=== PATIENT | female | born 1960 | race Caucasian/White ===

== ENCOUNTER → 2016-09-15 | Outpatient (CLI) | payer BC, OTHER ==
--- NOTE | 2016-09-15 07:06 | MR ---
EXAMINATION TYPE: MR cervical spine wo con DATE OF EXAM: 09/15/2016 COMPARISON: NONE HISTORY: Cervical strain TECHNIQUE: Multiplanar, multisequence images of the cervical spine were acquired. C2-C3: No evidence for degenerative disc disease. No disc bulge/herniation or protrusion. No Canal stenosis. Foramina are patent bilaterally. C3-C4: There is a small right central disc osteophyte complex and uncovertebral hypertrophy creating mild bilateral neural foraminal narrowing and minimally impressing upon the ventral subarachnoid spac e with CSF surrounding the spinal cord and no evidence of central canal stenosis. C4-C5: There is a bilobed disc bulge with left paracentral disc impression upon the ventral thecal sa c creating mild spinal canal stenosis and no evidence of alteration of the spinal cord signal. Uncove rtebral hypertrophy and facet arthropathy contribute to mild bilateral neural foraminal narrowing. C5-C6: A right foraminal disc osteophyte complex projects into the right lateral recess and right lyle ral foramen crating moderate right neural foraminal stenosis. Left neural foramen is patent. The disc osteophyte complex also projects posteriorly and creates mild spinal canal stenosis minimally impres sing upon the ventral thecal sac. No abnormal cervical cord signal. C6-C7: Uncovertebral hypertrophy and central disc osteophyte complex are seen with mild left neural f oraminal narrowing. Right neuroforamen and spinal canal are patent. C7-T1: No evidence for degenerative disc disease. No disc bulge/herniation or protrusion. No Canal stenosis. Foramina are patent bilaterally. Cervical segments are intact. There is normal alignment. Cervical spinal cord is of normal signal. Craniovertebral junction relationships are within normal limits. IMPRESSION: 1. No disc herniation, however there is multilevel degenerative disc disease resulting in spinal vanessa l stenosis at C4-C6 and multilevel neural foraminal narrowing as described above. 2. No abnormal bone marrow signal, fracture, or evidence of myositis.
== END | disposition home or self-care (01) ==
LOC: RADMRIMAIN 05:57
PROVIDERS: ATTEND Psychiatry & Neurology Neurology
DX: M50.321 Other cervical disc degeneration at C4-C5 level (principal); M99.71 Connective tissue and disc stenosis of intervertebral foramina of cervical region
CPT/HCPCS: 72141

== ENCOUNTER 2020-03-07 06:12 | Day surgery (SDC) | payer OTHER ==
[2020-03-05 13:17] VITALS: BMI 47.0
[2020-03-07] MEDS ORDERED: LIDOCAINE 1% (10MG/ML) FOR IV START INTRADERMA PRN (06:36)
[2020-03-07] MEDS ORDERED: LACTATED RINGERS 1,000 ML IV SCH (06:36)
[2020-03-07 06:54] VITALS: RESP 16; TEMP 96.9
[2020-03-07 06:55] LABS: Glucose,Whole Blood 119 mg/dL (75-99)
[2020-03-07] MEDS ORDERED: PROPOFOL 10 MG/ML 20 ML VIAL IV ONE (07:09)
[2020-03-07 07:49] VITALS: BP 106/61; PULSE 74
[2020-03-07 08:37] LABS: Anisocytosis Slight; Basophils % (A) 0 %; Eosinophils # (A) 0.2 k/uL (0-0.7); Eosinophils % (A) 3 %; HCT 38.2 % (34.0-46.0); HGB 11.9 gm/dL (11.4-16.0); Lymphocytes # (A) 2.2 k/uL (1.0-4.8); Lymphocytes % (A) 47 %; MCH 27.2 pg (25.0-35.0); MCHC 31.3 g/dL (31.0-37.0); MCV 86.8 fL (80.0-100.0); Mean Platelet Volume 9.4; Monocytes # (A) 0.3 k/uL (0-1.0); Monocytes % (A) 7 %; Neutrophils # (A) 1.9 k/uL (1.3-7.7); Neutrophils % (A) 41 %; Platelet Count 133 k/uL (150-450); RDW 16.3 % (11.5-15.5); WBC 4.7 k/uL (3.8-10.6)
--- NOTE | 2020-03-07 10:02 | PCN ---
PROCEDURE NOTE PROCEDURE: Bone marrow aspirate and biopsy. SITE: Right iliac crest. PREOPERATIVE DIAGNOSIS: Pancytopenia. POSTOPERATIVE DIAGNOSIS: Pancytopenia. DETAILS: Utilizing sterile technique, the skin overlying the right iliac crest were prepared with Betadine and alcohol. After adequate sterile draping, local anesthesia and with 1% lidocaine and systemic sedation, a size 11, 4-inch Jamshidi needle was utilized to access the periosteum with ease. A total of 15 mL of aspirate as well as 5 mm bone core biopsies were obtained. The patient tolerated the procedure very well. There was no procedure related complications. TOTAL BLOOD LOSS: Less than 1 mL. RESULTS: Pending. MMODL / IJN: [id number] /
== END 2020-03-07 08:12 | disposition home or self-care (01) ==
LOC: OR 06:12
PROVIDERS: ATTEND Internal Medicine Hematology & Oncology
DX: D61.818 Other pancytopenia (principal)
CPT/HCPCS: 38222; 85025; 85045; J2704

== ENCOUNTER 2020-05-04 12:16 | Inpatient (IN) | payer MEDICARE, OTHER ==
[2020-05-04] MEDS ORDERED: DEXAMETHASONE SOD PHOSPHATE 10 MG/ML 1 ML VIAL IV STA (12:36)
[2020-05-04] MEDS ORDERED: ACETAMINOPHEN TAB 500 MG TAB PO STA (12:36)
[2020-05-04] MEDS ORDERED: IBUPROFEN 800 MG TAB PO STA (12:36)
[2020-05-04] MEDS ORDERED: ALBUTEROL HFA INHALER INHALATION STA (12:36)
[2020-05-04] MEDS ORDERED: SODIUM CHLORIDE 0.9% 1,000 ML IV STA (12:36)
--- NOTE | 2020-05-04 12:37 | ED ---
Recheck HPI - General Chief Complaint: Shortness of Breath Stated Complaint: COVID+, SOB Time Seen by Provider: 05/04/20 12:36 Source: patient, RN notes reviewed, old records reviewed Mode of arrival: ambulatory Limitations: no limitations - History of Present Illness Initial Comments: This is a 59-year-old female DF for shortness of breath. Patient does suffer from multiple medical conditions diabetes high blood pressure high cholesterol fevers persistent fevers and again known coronavirus. Patient at this point will be admitted for supplemental to his oxygen is been in the 70s at home as well as having history of severe obesity MD Complaint: abnormal lab (Known coronavirus with hypoxia) -: days(s) Returns Today for: Called Because of Abnormal Lab/Test, persistent/worsening pain related to initial visit Symptoms Since Prior Visit: worsening pain, fever Context: planned re-check Associated Symptoms: fever, chills, shortness of breath, malaise Treatments Prior to Arrival: other medications, home treatments - Related Data Home Medications Medication Instructions Recorded Confirmed Ibuprofen [Motrin] 800 mg PO Q6HR PRN 10/17/15 03/07/20 Levothyroxine Sodium [Synthroid] 75 mcg PO DAILY 10/17/15 03/07/20 Omeprazole [PriLOSEC] 20 mg PO AC-BRKFST 10/17/15 03/07/20 Allopurinol [Zyloprim] 100 mg PO DAILY 03/05/20 03/07/20 Atorvastatin [Lipitor] 40 mg PO DAILY 03/05/20 03/07/20 Baclofen [Lioresal] 20 mg PO HS 03/05/20 03/07/20 Ergocalciferol [Vitamin D2 (1250 1,250 mcg PO DELACRUZ 03/05/20 03/07/20 Mcg = [id number] Iu)] Escitalopram [Lexapro] 20 mg PO DAILY 03/05/20 03/07/20 Ferrous Sulfate [Feosol] 325 mg PO DAILY 03/05/20 03/07/20 Gabapentin [Neurontin] 600 mg PO QID 03/05/20 03/07/20 Glimepiride [Amaryl] 4 mg PO AC-BRKFST 03/05/20 03/07/20 Lisinopril [Prinivil] 10 mg PO DAILY 03/05/20 03/07/20 Melatonin 3 mg PO HS 03/05/20 03/07/20 Pioglitazone [Actos] 30 mg PO DAILY 03/05/20 03/07/20 metFORMIN HCL [Glucophage] 500 mg PO TID 03/05/20 03/07/20 Allergies Allergy/AdvReac Type Severity Reaction Status Date / Time codeine Allergy Rash/Hives Verified 05/04/20 12:22 Review of Systems ROS Statement: Those systems with pertinent positive or pertinent negative responses have been documented in the HPI. ROS Other: All systems not noted in ROS Statement are negative. Past Medical History Past Medical History: Diabetes Mellitus, GERD/Reflux, GI Bleed, Hyperlipidemia, Hypertension, Thyroid Disorder Additional Past Medical History / Comment(s): HX PANTOCYPOPENIA-CT SCAN REVEALED ENLARGED SPLEEN History of Any Multi-Drug Resistant Organisms: None Reported Past Surgical History: Bariatric Surgery, Cholecystectomy, Heart Catheterization, Tonsillectomy Additional Past Surgical History / Comment(s): COLONOSCOPY. SPINAL FUSION 2018. GASTRIC SLEEVE 2011 Past Anesthesia/Blood Transfusion Reactions: No Reported Reaction Past Psychological History: Depression Smoking Status: Never smoker Past Alcohol Use History: None Reported Past Drug Use History: None Reported - Past Family History Mother Family Medical History: Cancer Father Family Medical History: Cancer General Exam Limitations: no limitations General appearance: alert, in no apparent distress, anxious Head exam: Present: atraumatic, normocephalic, normal inspection Eye exam: Present: normal appearance, PERRL, EOMI. Absent: scleral icterus, conjunctival injection, periorbital swelling ENT exam: Present: normal exam, mucous membranes moist Neck exam: Present: normal inspection. Absent: tenderness, meningismus, lymphadenopathy Respiratory exam: Present: normal lung sounds bilaterally, rhonchi, accessory muscle use, decreased breath sounds, prolonged expiratory. Absent: respiratory distress, wheezes, rales, stridor Cardiovascular Exam: Present: regular rate, normal rhythm, normal heart sounds. Absent: systolic murmur, diastolic murmur, rubs, gallop, clicks GI/Abdominal exam: Present: soft, normal bowel sounds. Absent: distended, tenderness, guarding, rebound, rigid Extremities exam: Present: normal inspection, full ROM, normal capillary refill. Absent: tenderness, pedal edema, joint swelling, calf tenderness Back exam: Present: normal inspection Neurological exam: Present: alert, oriented X3, CN II-XII intact Psychiatric exam: Present: normal affect, normal mood Skin exam: Present: warm, dry, intact, normal color. Absent: rash Course Vital Signs 05/04/20 12:22 Temperature 101.2 F H Pulse Rate 89 Respiratory 22 Rate Blood Pressure 113/74 O2 Sat by Pulse 96 Oximetry - Reevaluation(s) Reevaluation #1: 05/04/20 13:23 Medical records reviewed Reevaluation #2: 05/04/20 13:23 Patient was still significant shortness of breath, despite supplemental O2 with multiple medical comorbidities making increased risk for severe coronavirus Reevaluation #3: 05/04/20 13:23 Patient oxygen was significantly low in the 70s at home, patient will be admitted for more monitoring here in the hospital Medical Decision Making - Medical Decision Making 59 female DF for evaluation patient resents today for evaluation of known coronavirus, patient does have coronavirus pneumonia with severe hypoxia. Will admit the patient for supple oxygen - Lab Data Result diagrams: 05/04/20 12:43 Lab Results 05/04/20 05/04/20 Range/Units 12:43 12:43 Sodium 135 L (137-145) mmol/L Potassium 4.0 (3.5-5.1) mmol/L Chloride 102 (98-107) mmol/L Carbon Dioxide 25 (22-30) mmol/L Anion Gap 8 mmol/L BUN 9 (7-17) mg/dL Creatinine 0.71 (0.52-1.04) mg/dL Est GFR (CKD-EPI)AfAm >90 (>60 ml/min/1.73 sqM) Est GFR (CKD-EPI)NonAf >90 (>60 ml/min/1.73 sqM) Glucose 97 (74-99) mg/dL Plasma Lactic Acid Hossein 2.1 H* (0.7-2.0) mmol/L Calcium 8.5 (8.4-10.2) mg/dL Magnesium 1.6 (1.6-2.3) mg/dL Total Bilirubin 0.7 (0.2-1.3) mg/dL AST 87 H (14-36) U/L ALT 37 H (4-34) U/L Alkaline Phosphatase 174 H (38-126) U/L Lactate Dehydrogenase 802 H (313-618) U/L C-Reactive Protein 55.0 H (<10.0) mg/L Total Protein 6.5 (6.3-8.2) g/dL Albumin 3.4 L (3.5-5.0) g/dL - EKG Data -: EKG Interpreted by Me (EKG shows sinus rhythm 83, WV 140 QRS 80 QTC 488) - Radiology Data Radiology results: report reviewed (Chest x-ray is positive for coronavirus pneu monia), image reviewed Critical Care Time Critical Care Time: Yes Total Critical Care Time: 31 Disposition Clinical Impression: Coronavirus infection, Hypoxia, Fever Disposition: ADMITTED IP TO THIS HOSP Condition: Fair Is patient prescribed a controlled substance at d/c from ED?: No Referrals: Tiffanie Llamas DO [Primary Care Provider] - 1-2 days
[2020-05-04] MEDS: SODIUM CHLORIDE 0.9% 1,000 ML IV STA ×2 (13:04→16:04)
[2020-05-04 13:05] LABS: Basophils % (A) 0 %; Eosinophils % (A) 0 %; HCT 33.7 % (34.0-46.0); HGB 11.5 gm/dL (11.4-16.0); Lymphocytes # (A) 0.6 k/uL (1.0-4.8); Lymphocytes % (A) 45 %; MCH 29.4 pg (25.0-35.0); MCHC 34.1 g/dL (31.0-37.0); MCV 86.1 fL (80.0-100.0); Mean Platelet Volume 9.2; Monocytes # (A) 0.1 k/uL (0-1.0); Monocytes % (A) 9 %; Neutrophils # (A) 0.6 k/uL (1.3-7.7); Neutrophils % (A) 44 %; RBC 3.91 m/uL (3.80-5.40); RDW 15.8 % (11.5-15.5)
[2020-05-04 13:15] LABS: Glucose 97 mg/dL (74-99); Total Protein 6.5 g/dL (6.3-8.2)
[2020-05-04 13:18] LABS: ALT 37 U/L (4-34); AST 87 U/L (14-36); African American GFR (CKD) >90 (>60 ml/min/1.73 sqM); Albumin 3.4 g/dL (3.5-5.0); Alkaline Phosphatase 174 U/L (38-126); Anion Gap 8 mmol/L; Blood Urea Nitrogen 9 mg/dL (7-17); Calcium 8.5 mg/dL (8.4-10.2); Carbon Dioxide 25 mmol/L (22-30); Chloride 102 mmol/L (98-107); LDH 802 U/L (313-618); Magnesium 1.6 mg/dL (1.6-2.3); Non-African American GFR(CKD) >90 (>60 ml/min/1.73 sqM); Sodium 135 mmol/L (137-145); Total Bilirubin 0.7 mg/dL (0.2-1.3)
[2020-05-04] MEDS ORDERED: MORPHINE SULFATE 4 MG/ML SYRINGE IV PRN (13:19)
[2020-05-04] MEDS ORDERED: NALOXONE 0.4 MG/ML 1 ML VIAL IV PRN (13:19)
--- NOTE | 2020-05-04 13:20 | XR ---
EXAMINATION TYPE: XR chest 1V portable DATE OF EXAM: 05/04/2020 HISTORY: Shortness of breath. COMPARISON: 04/16/2012 TECHNIQUE: Single view of the chest is submitted. FINDINGS: Demonstrated are scattered senescent parenchymal change. Peripheral infiltrates noted right greater than left. Correlate for Covid 19 pneumonia. The heart is stable. Hilar and mediastinal structures are within normal limits. Degenerative changes are seen of the dorsal spine. IMPRESSION: 1. Peripheral infiltrates noted right greater than left. Correlate for Covid 19 pneumonia.
[2020-05-04 13:23] LABS: Partial Thromboplastin Time 30.2 sec (22.0-30.0); Prothrombin Time 10.8 sec (9.0-12.0)
[2020-05-04 13:27] LABS: WBC 1.4 k/uL (3.8-10.6)
[2020-05-04 13:57] LABS: Platelet Count 80 k/uL (150-450)
--- NOTE | 2020-05-04 15:22 | P.CNPUL ---
History of Present Illness Consult date: 05/04/20 Reason for consult: dyspnea, pneumonia History of present illness: 79-year-old female patient, morbidly obese with a BMI of 47, was hospitalized for COVID 19 related pneumonia. The patient currently is hypoxic on 3 L of oxygen by nasal cannula. She has comorbidities including obesity with a BMI of 47, hypertension, diabetes mellitus and gout. She also has hyperlipidemia and hypothyroidism. The patient started getting symptoms approximately a week ago, on 04/28/2020 and the patient was diagnosed having Covid 19 infection for a primary care physician's office on 04/29.. She continued to have episodes of fever and subsequently she became progressively more short of breath necessitating emergency department visitation today and ultimately she was hospitalized. Her chest x-ray showing bilateral pulmonary infiltrates peripheral distribution more so on the right compared to the left. The patient was started on steroids.. She is slightly nauseated. She also has loss of taste and smell LDH level is currently at 802 with a CRP of 55 and she had a lactic acid level of 2.1 at the time of admission. There d-dimer is still pending for now. Her white cell count is at 1.4 and the patient is lymphopenic with a lymphocyte coun t of 0.6 and there is also a drop in her platelet count down to 80 and these are all manifestations of COVID 19 infection. Review of Systems Constitutional: Reports fatigue, Reports fever, Reports weakness Eyes: denies as per HPI, denies blurred vision, denies bulging eye, denies decreased vision, denies diplopia, denies discharge, denies dry eye, denies irritation, denies itching, denies pain, denies photophobia, denies loss of peripheral vision, denies loss of vision, denies tunnel vision/blind spots Ears: deny: decreased hearing, ear discharge, earache, tinnitus Ears, nose, mouth and throat: Denies headache, Denies sore throat Breasts: absent: as per HPI, change in shape, gynecomastia, masses, nipple discharge, pain, skin changes, swelling Cardiovascular: Reports decreased exercise tolerance, Reports dyspnea on exertio n Respiratory: Reports dyspnea Gastrointestinal: Reports as per HPI, Reports nausea Genitourinary: Reports as per HPI Past Medical History Past Medical History: Diabetes Mellitus, GERD/Reflux, GI Bleed, Hyperlipidemia, Hypertension, Thyroid Disorder Additional Past Medical History / Comment(s): HX PANTOCYPOPENIA-CT SCAN REVEALED ENLARGED SPLEEN History of Any Multi-Drug Resistant Organisms: None Reported Past Surgical History: Bariatric Surgery, Cholecystectomy, Heart Catheterization, Tonsillectomy Additional Past Surgical History / Comment(s): COLONOSCOPY. SPINAL FUSION 2018. GASTRIC SLEEVE 2011 Past Anesthesia/Blood Transfusion Reactions: No Reported Reaction Past Psychological History: Depression Smoking Status: Never smoker Past Alcohol Use History: None Reported Past Drug Use History: None Reported - Past Family History Mother Family Medical History: Cancer Father Family Medical History: Cancer Medications and Allergies Home Medications Medication Instructions Recorded Confirmed Type Levothyroxine Sodium [Synthroid] 75 mcg PO DAILY 10/17/15 05/04/20 History Omeprazole [PriLOSEC] [facility] 10/17/15 05/04/20 History Allopurinol [Zyloprim] 100 mg PO DAILY 03/05/20 05/04/20 History Atorvastatin [Lipitor] 40 mg PO DAILY 03/05/20 05/04/20 History Baclofen [Lioresal] 20 mg PO HS 03/05/20 05/04/20 History Ergocalciferol [Vitamin D2 (1250 1,250 mcg PO DELACRUZ 03/05/20 05/04/20 History Mcg = 13555 Iu)] Escitalopram [Lexapro] 20 mg PO DAILY 03/05/20 05/04/20 History Ferrous Sulfate [Feosol] 325 mg PO DAILY 03/05/20 05/04/20 History Gabapentin [Neurontin] 600 mg PO QID 03/05/20 05/04/20 History Glimepiride [Amaryl] 4 mg PO -[facility] 03/05/20 05/04/20 History Lisinopril [Prinivil] 10 mg PO DAILY 03/05/20 05/04/20 History Melatonin 3 mg PO HS 03/05/20 05/04/20 History Pioglitazone [Actos] 30 mg PO DAILY 03/05/20 05/04/20 History metFORMIN HCL [Glucophage] 500 mg PO TID 03/05/20 05/04/20 History Ibuprofen [Motrin] 800 mg PO Q8H PRN 05/04/20 05/04/20 History Allergies Allergy/AdvReac Type Severity Reaction Status Date / Time codeine Allergy Rash/Hives Verified 05/04/20 13:52 Physical Exam Vitals: Vital Signs Temp Pulse Resp BP Pulse Ox 05/04/20 14:44 98.3 F 74 18 110/61 94 L 05/04/20 12:36 18 05/04/20 12:22 101.2 F H 89 22 113/74 96 Intake and Output 05/04/20 05/04/20 05/04/20 06:59 14:59 22:59 Other: Weight 136.078 kg Gen. appearance morbidly obese and she is calm and comfortable lying acute respiratory distress, currently on 4 L nasal cannula Head exam was generally normal. There was no scleral icterus or corneal arcus. Mucous membranes were moist. Neck was supple and without jugular venous distension, thyromegaly, or carotid bruits. Carotids were easily palpable bilaterally. There was no adenopathy. Lungs sounds are diminished the patient is crackles in the lung bases more so on the right Cardiac exam revealed the PMI to be normally situated and sized. The rhythm was regular and no extrasystoles were noted during several minutes of auscultation. The first and second heart sounds were normal and physiologic splitting of the second heart sound was noted. There were no murmurs, rubs, clicks, or gallops. Abdominal exam revealed normal bowel sounds. The abdomen was soft, non-tender, and without masses, organomegaly, or appreciable enlargement of the abdominal aorta. Examination of the extremities revealed easily palpable radial, femoral and pedal pulses. There was no cyanosis, clubbing or edema. Examination of the skin revealed no evidence of significant rashes, suspicious appearing nevi or other concerning lesions. Neurologically, the patient is awake and alert and the patient does not have any focal neurological deficit. Cranial nerves are essentially intact. Results - Laboratory Findings CBC and BMP: 05/04/20 12:43 05/04/20 12:43 PT/INR, D-dimer PT 10.8 sec (9.0-12.0) 05/04/20 12:43 INR 1.0 (<1.2) 05/04/20 12:43 Abnormal lab findings: Abnormal Labs 05/04/20 05/04/20 05/04/20 12:43 12:43 12:43 WBC 1.4 L* Hct 33.7 L RDW 15.8 H Plt Count 80 L Neutrophils # 0.6 L Lymphocytes # 0.6 L APTT 30.2 H Sodium 135 L Plasma Lactic Acid Hossein AST 87 H ALT 37 H Alkaline Phosphatase 174 H Lactate Dehydrogenase 802 H C-Reactive Protein 55.0 H Albumin 3.4 L 05/04/20 12:43 WBC Hct RDW Plt Count Neutrophils # Lymphocytes # APTT Sodium Plasma Lactic Acid Hossein 2.1 H* AST ALT Alkaline Phosphatase Lactate Dehydrogenase C-Reactive Protein Albumin - Diagnostic Findings Chest x-ray: image reviewed Assessment and Plan Plan: 1 acute Covid 19 related pneumonia, symptoms started on 04/28/2020, diagnosed to be positive on 04/29/2020 and currently presenting with worsening shortness of breath and hypoxic respiratory failure 2 acute hypoxic respiratory failure currently and 4 l by nasal cannula 3 fever secondary to above 4 leukopenia, lymphopenia and thrombocytopenia secondary to above 5 mild elevation of inflammatory markers secondary to Covid 19 infection 6 obesity with a BMI of 47.0 7 diabetes mellitus type 2 8 hypertension 9 hyperlipidemia 10 hypothyroidism Plan tirate FiO2 to maintain a saturation above 90% currently on 4 L Decadron 6 mg by mouth daily Start the patient on Remdesivir per protocol to complete a 5 day course Lovenox 40 mg subcu for DVT prophylaxis Vitamin C and vitamin D and zinc supplements Resume home medications NovoLog sliding scale insulin coverage for blood sugar control and anticipate steroid-induced hyperglycemia Monitor inflammatory markers We'll continue to follow.
[2020-05-04] MEDS ORDERED: REMDESIVIR 200 MG in SODIUM CHLORIDE 0.9% 250 ML IVPB ONE (16:00)
[2020-05-04] MEDS: ZINC SULFATE 220 MG CAP PO SCH (16:03)
[2020-05-04] MEDS: ASCORBIC ACID 500 MG TAB PO SCH (16:03)
[2020-05-04] MEDS: CHOLECALCIFEROL 25 MCG (1000 IU) TABLET PO SCH (16:03)
[2020-05-04] MEDS: metFORMIN 500 MG TAB PO SCH (18:17)
[2020-05-04] MEDS: GABAPENTIN 300 MG CAP PO SCH ×2 (18:17→23:09)
[2020-05-04] MEDS: SODIUM CHLORIDE 0.9% 1,000 ML IV SCH (18:19)
[2020-05-04] MEDS: INSULIN ASPART (NovoLOG) 100 UNIT/ML VIAL SQ SCH ×2 (18:19→20:50)
[2020-05-04] MEDS: ALBUTEROL HFA INHALER INHALATION PRN (19:58)
[2020-05-04 20:40] LABS: Glucose,Whole Blood 376 mg/dL (75-99)
[2020-05-04] MEDS: BACLOFEN 10 MG TAB PO SCH (20:50)
[2020-05-04 23:30] LABS: Glucose,Whole Blood 419 mg/dL (75-99)
[2020-05-04] MEDS ORDERED: INSULIN ASPART (NovoLOG) 100 UNIT/ML VIAL SQ ONE (23:39)
--- NOTE | 2020-05-04 23:43 | CONS ---
CONSULTATION DATE OF SERVICE: 05/04/2020. REASON FOR CONSULTATION: COVID-19 pneumonia. HISTORY OF PRESENT ILLNESS: The patient is a 59-year-old morbidly obese female presenting to the ER with chief complaints of increasing shortness of breath and fever in this patient whose symptoms have been going on for the last few days. Symptoms started around Wednesday of this week. Patient mentioned her had symptoms that started the day before her and apparently he was exposed to somebody with Covid with whom he played bowling. The patient mentioned she started having a fever and chills. Did have generalized body aches along with weakness. Started having shortness of breath or cough. She noticed her O2 sats were low at home in the 80s and did concern her and the patient presented to the hospital for further evaluation. Patient cough moderate intensity with associated shortness of breath. Denies any pleuritic chest pain or purulent sputum. The patient did have some nausea but no vomiting. No abdominal pain. Did have diarrhea with multiple loose stools. No blood or mucus in the stool. On presentation to the hospital, the patient did have fever of 101.2 degrees Fahrenheit. The patient was hypoxic, currently on 3 L nasal cannula. Saturating 92%. The patient did have leukopenia as well as lymphopenia. D-dimer was not checked. Creatinine 0.71. Lactic acid is 2.1. Repeat is 1.7 with liver enzymes elevated. CRP was elevated. The patient did have a chest x-ray that did show evidence of peripheral infiltrates correlate for COVID-19 pneumonia. Patient admitted to the hospital. Infectious Disease was consulted for further management. REVIEW OF SYSTEMS: Positive points have been mentioned in HPI. Rest of systems are negative. PAST MEDICAL HISTORY: Diabetes mellitus, gastroesophageal reflux disease, GI bleed, hypertension, hyperlipidemia, hypothyroidism. PAST SURGICAL HISTORY: Bariatric surgery, cholecystectomy, heart catheterization, tonsillectomy, spinal fusion. SOCIAL HISTORY: No history of smoking, drinking or drug use. FAMILY HISTORY: Both parents with history of cancer. ALLERGIES: CODEINE. MEDICATIONS WERE: The patient is currently on Ventolin, Zyloprim, Vitamin C, Lipitor, baclofen, vitamin D3, dexamethasone, Lovenox, Lexapro, iron sulfate, Neurontin, Amaryl, Lovenox, Synthroid, Zestril, Glucophage, Narcan, Zofran, Remdesivir, zinc sulfate. PHYSICAL EXAMINATION: Her blood pressure is 111/65, pulse of 85, temperature 99.6, T-max 101. She is 92% on 3 L nasal cannula. General description is a middle-aged female lying in bed in no distress. No tachypnea or accessory muscles of respiration use. HEENT: Examination no pallor or scleral icterus. Oral mucosal membranes are dry. NECK: Trachea central. No thyromegaly. LUNGS: Unlabored breathing. Coarse breath sounds with no wheeze. HEART S1, S2. Regular rate and rhythm. ABDOMEN: Soft, no tenderness. No guarding. No rigidity. EXTREMITIES: No edema of the feet. SKIN examination: No rash or mass palpable. NEUROLOGIC: The patient is awake, alert, oriented times three. Mood and affect normal. LABS: Hemoglobin is 11.5, white count 1.4, creatinine 0.7. Lactate is 2.1. BUN is 1.3. Liver enzymes are elevated. LDH and CRP are elevated. Chest x-ray report mentioned above. DIAGNOSTIC IMPRESSION: Patient admitted to the hospital with increasing shortness of breath, cough, hypoxemia in this patient who did have fever on admission to the hospital with evidence of bilateral infiltrate secondary to acute COVID-19 pneumonia. The patient did have hypoxemia. Symptoms mostly less than a week to qualify for Remdesivir therapy. PLAN: 1. The patient has been started on Remdesivir protocol 200 mg a day followed by 100 mg daily for 4 more doses. 2. Lovenox, dexamethasone, zinc, vitamin C. 3. Droplet isolation and respiratory support. 4. We will follow on clinical condition and further adjust medication if needed. Thank you for this consultation. Will follow this patient along with you. MMODL / IJN: [id number] / [facility]ALTH[facility]
[2020-05-05] MEDS: INSULIN DETEMIR (LEVEMIR) 100 UNIT/ML SYR SQ SCH ×2 (00:23→20:58)
[2020-05-05] MEDS: SODIUM CHLORIDE 0.9% 1,000 ML IV SCH ×3 (02:43→20:57)
[2020-05-05] MEDS: LEVOTHYROXINE 75 MCG TAB PO SCH (05:38)
[2020-05-05 07:13] LABS: Glucose,Whole Blood 182 mg/dL (75-99)
--- NOTE | 2020-05-05 07:33 | XR ---
EXAMINATION TYPE: XR chest 1V portable DATE OF EXAM: 05/05/2020 HISTORY: Shortness of breath. COMPARISON: 05/04/2020 TECHNIQUE: Single view of the chest is submitted. FINDINGS: Demonstrated are scattered senescent parenchymal change. Progressive airspace infiltrates are seen throughout both lung hernandez. The heart is stable. Hilar and mediastinal structures are within normal limits. Degenerative changes are seen of the dorsal spine. IMPRESSION: 1. Progressive airspace infiltrates are seen throughout both lung hernandez.
[2020-05-05] MEDS: ALBUTEROL HFA INHALER INHALATION PRN (08:07)
[2020-05-05] MEDS: FERROUS SULFATE 325 MG TAB PO SCH (08:15)
[2020-05-05] MEDS: ATORVASTATIN 40 MG TAB PO SCH (08:15)
[2020-05-05] MEDS: CHOLECALCIFEROL 25 MCG (1000 IU) TABLET PO SCH (08:15)
[2020-05-05] MEDS: GABAPENTIN 300 MG CAP PO SCH ×4 (08:15→20:58)
[2020-05-05] MEDS: ASCORBIC ACID 500 MG TAB PO SCH (08:16)
[2020-05-05] MEDS: allopurinoL 100 MG TAB PO SCH (08:16)
[2020-05-05] MEDS: lisinopriL 10 MG TAB PO SCH (08:16)
[2020-05-05] MEDS: metFORMIN 500 MG TAB PO SCH ×3 (08:16→17:47)
[2020-05-05] MEDS: ZINC SULFATE 220 MG CAP PO SCH (08:16)
[2020-05-05] MEDS: GLIMEPIRIDE 4 MG TAB PO SCH (08:20)
[2020-05-05] MEDS: ESCITALOPRAM 20 MG TAB PO SCH (08:20)
[2020-05-05] MEDS: INSULIN ASPART (NovoLOG) 100 UNIT/ML VIAL SQ SCH ×7 (08:21→20:55)
[2020-05-05] MEDS: ENOXAPARIN 40 MG/0.4 ML SYRINGE SQ SCH (08:21)
[2020-05-05 08:58] LABS: Anisocytosis Slight; Basophils % (A) 0 %; Eosinophils % (A) 0 %; HCT 33.7 % (34.0-46.0); HGB 10.7 gm/dL (11.4-16.0); Hypochromasia Slight; Lymphocytes # (A) 0.6 k/uL (1.0-4.8); Lymphocytes % (A) 45 %; MCHC 31.7 g/dL (31.0-37.0); MCV 88.2 fL (80.0-100.0); Mean Platelet Volume 9.1; Monocytes # (A) 0.1 k/uL (0-1.0); Monocytes % (A) 7 %; Neutrophils # (A) 0.6 k/uL (1.3-7.7); Neutrophils % (A) 47 %; RBC 3.83 m/uL (3.80-5.40); RDW 16.2 % (11.5-15.5)
[2020-05-05] MEDS ORDERED: dexAMETHasone 4 MG TAB PO SCH (09:00)
[2020-05-05 09:10] LABS: Platelet Count 79 k/uL (150-450); WBC 1.2 k/uL (3.8-10.6)
[2020-05-05 09:14] LABS: ALT 33 U/L (4-34); AST 73 U/L (14-36); African American GFR (CKD) >90 (>60 ml/min/1.73 sqM); Albumin 3.1 g/dL (3.5-5.0); Alkaline Phosphatase 151 U/L (38-126); Anion Gap 6 mmol/L; Blood Urea Nitrogen 14 mg/dL (7-17); Calcium 8.2 mg/dL (8.4-10.2); Carbon Dioxide 26 mmol/L (22-30); Chloride 105 mmol/L (98-107); Globulin 3.1 g/dL; Glucose 148 mg/dL (74-99); LDH 835 U/L (313-618); Magnesium 1.8 mg/dL (1.6-2.3); Non-African American GFR(CKD) >90 (>60 ml/min/1.73 sqM); Phosphorus 3.4 mg/dL (2.5-4.5); Potassium 4.4 mmol/L (3.5-5.1); Sodium 137 mmol/L (137-145); Total Bilirubin 0.5 mg/dL (0.2-1.3); Total Protein 6.2 g/dL (6.3-8.2)
[2020-05-05 11:19] LABS: Glucose,Whole Blood 159 mg/dL (75-99)
--- NOTE | 2020-05-05 11:42 | P.PN ---
Subjective Progress Note Date: 05/05/20 79-year-old female patient, morbidly obese with a BMI of 47, was hospitalized for COVID 19 related pneumonia. The patient currently is hypoxic on 3 L of oxygen by nasal cannula. She has comorbidities including obesity with a BMI of 47, hypertension, diabetes mellitus and gout. She also has hyperlipidemia and hypothyroidism. The patient started getting symptoms approximately a week ago, on 04/28/2020 and the patient was diagnosed having Covid 19 infection for a primary care physician's office on 04/29.. She continued to have episodes of fever and subsequently she became progressively more short of breath necessitating emergency department visitation today and ultimately she was hospitalized. Her chest x-ray showing bilateral pulmonary infiltrates peripheral distribution more so on the right compared to the left. The patient was started on steroids.. She is slightly nauseated. She also has loss of taste and smell LDH level is currently at 802 with a CRP of 55 and she had a lactic acid level of 2.1 at the time of admission. There d-dimer is still pending for now. Her white cell count is at 1.4 and the patient is lymphopenic with a lymphocyte count of 0.6 and there is also a drop in her platelet count down to 80 and these are all manifestations of COVID 19 infection. On today's evaluation of 04/27/2020, the patient's oxygenation has gotten worse. I saw her in the emergency department yesterday and she was on 4 L. She progressively required higher oxygen flow and she went up to a high flow oxygen through the nasal cannula airvo which she feels a currently she is on a BiPAP at a pressure of 10/5 with an FiO2 of 100%. She is able to generate a tidal volume around 450-500. Respiratory rate is in the mid 30s low 40s. She feels well. She is in mild degree of respiratory distress. She is still able to converse and talk to her BiPAP mask. Her current pulse ox is 94%. 60 showing diffuse breath and pulmonary infiltrates consistent with Covid 19 related pneumonia. Her white cell count is still down at 1.2. Platelet count is at 70 now which is low. D-dimer is at 0.65, her LDH level is at 835 with a CRP of 56. She is on Decadron. I'm going to switch her to Solu-Medrol. She is currently taking REM should be considered for convalescent plasma and addition to Tocilizumab Objective - Vital Signs Vital signs: Vital Signs Temp 98.4 F 05/05/20 10:07 Pulse 78 05/05/20 10:07 Resp 22 05/05/20 10:07 BP 118/70 05/05/20 10:07 Pulse Ox 91 L 05/05/20 10:07 Intake & Output 05/04/20 05/05/20 05/05/20 18:59 06:59 18:59 Intake Total 1000 Balance 1000 Weight 136.078 kg Intake: Intake, IV Titration 1000 Amount Sodium Chloride 0.9% 1, 1000 000 ml @ 100 mls/hr IV . Q10H [facility] Rx#:[id number] Other: Voiding Method Toilet Toilet # Voids 1 - Exam Gen. appearance morbidly obese and she is calm and comfortable lying acute respiratory distress, currently on BiPAP 10/5 with an FiO2 of 100% and the patient is a bit short of breath Head exam was generally normal. There was no scleral icterus or corneal arcus. Mucous membranes were moist. Neck was supple and without jugular venous distension, thyromegaly, or carotid bruits. Carotids were easily palpable bilaterally. There was no adenopathy. Lungs sounds are diminished the patient is crackles in the lung bases more so on the right Cardiac exam revealed the PMI to be normally situated and sized. The rhythm was regular and no extrasystoles were noted during several minutes of auscultation. The first and second heart sounds were normal and physiologic splitting of the second heart sound was noted. There were no murmurs, rubs, clicks, or gallops. Abdominal exam revealed normal bowel sounds. The abdomen was soft, non-tender, and without masses, organomegaly, or appreciable enlargement of the abdominal aorta. Examination of the extremities revealed easily palpable radial, femoral and pedal pulses. There was no cyanosis, clubbing or edema. Examination of the skin revealed no evidence of significant rashes, suspicious appearing nevi or other concerning lesions. Neurologically, the patient is awake and alert and the patient does not have any focal neurological deficit. Cranial nerves are essentially intact. - Labs CBC & Chem 7: 05/05/20 07:53 05/05/20 07:53 Labs: Abnormal Lab Results - Last 24 Hours (Table) 05/04/20 05/04/20 05/04/20 Range/Units 12:43 12:43 12:43 WBC 1.4 L* (3.8-10.6) k/uL Hgb (11.4-16.0) gm/dL Hct 33.7 L (34.0-46.0) % RDW 15.8 H (11.5-15.5) % Plt Count 80 L (150-450) k/uL Neutrophils # 0.6 L (1.3-7.7) k/uL Lymphocytes # 0.6 L (1.0-4.8) k/uL APTT 30.2 H (22.0-30.0) sec D-Dimer (<0.60) mg/L FEU Sodium 135 L (137-145) mmol/L Glucose (74-99) mg/dL POC Glucose (mg/dL) (75-99) mg/dL Plasma Lactic Acid Hossein (0.7-2.0) mmol/L Calcium (8.4-10.2) mg/dL AST 87 H (14-36) U/L ALT 37 H (4-34) U/L Alkaline Phosphatase 174 H (38-126) U/L Lactate Dehydrogenase 802 H (313-618) U/L C-Reactive Protein 55.0 H (<10.0) mg/L Total Protein (6.3-8.2) g/dL Albumin 3.4 L (3.5-5.0) g/dL 05/04/20 05/04/20 05/04/20 Range/Units 12:43 20:38 23:29 WBC (3.8-10.6) k/uL Hgb (11.4-16.0) gm/dL Hct (34.0-46.0) % RDW (11.5-15.5) % Plt Count (150-450) k/uL Neutrophils # (1.3-7.7) k/uL Lymphocytes # (1.0-4.8) k/uL APTT (22.0-30.0) sec D-Dimer (<0.60) mg/L FEU Sodium (137-145) mmol/L Glucose (74-99) mg/dL POC Glucose (mg/dL) 376 H 419 H (75-99) mg/dL Plasma Lactic Acid Hossein 2.1 H* (0.7-2.0) mmol/L Calcium (8.4-10.2) mg/dL AST (14-36) U/L ALT (4-34) U/L Alkaline Phosphatase (38-126) U/L Lactate Dehydrogenase (313-618) U/L C-Reactive Protein (<10.0) mg/L Total Protein (6.3-8.2) g/dL Albumin (3.5-5.0) g/dL 05/05/20 05/05/20 05/05/20 Range/Units 07:12 07:53 07:53 WBC 1.2 L* (3.8-10.6) k/uL Hgb 10.7 L (11.4-16.0) gm/dL Hct 33.7 L (34.0-46.0) % RDW 16.2 H (11.5-15.5) % Plt Count 79 L (150-450) k/uL Neutrophils # 0.6 L (1.3-7.7) k/uL Lymphocytes # 0.6 L (1.0-4.8) k/uL APTT (22.0-30.0) sec D-Dimer (<0.60) mg/L FEU Sodium (137-145) mmol/L Glucose 148 H (74-99) mg/dL POC Glucose (mg/dL) 182 H (75-99) mg/dL Plasma Lactic Acid Hossein (0.7-2.0) mmol/L Calcium 8.2 L (8.4-10.2) mg/dL AST 73 H (14-36) U/L ALT (4-34) U/L Alkaline Phosphatase 151 H (38-126) U/L Lactate Dehydrogenase 835 H (313-618) U/L C-Reactive Protein 56.0 H (<10.0) mg/L Total Protein 6.2 L (6.3-8.2) g/dL Albumin 3.1 L (3.5-5.0) g/dL 05/05/20 05/05/20 Range/Units 07:53 11:17 WBC (3.8-10.6) k/uL Hgb (11.4-16.0) gm/dL Hct (34.0-46.0) % RDW (11.5-15.5) % Plt Count (150-450) k/uL Neutrophils # (1.3-7.7) k/uL Lymphocytes # (1.0-4.8) k/uL APTT (22.0-30.0) sec D-Dimer 0.65 H (<0.60) mg/L FEU Sodium (137-145) mmol/L Glucose (74-99) mg/dL POC Glucose (mg/dL) 159 H (75-99) mg/dL Plasma Lactic Acid Hossein (0.7-2.0) mmol/L Calcium (8.4-10.2) mg/dL AST (14-36) U/L ALT (4-34) U/L Alkaline Phosphatase (38-126) U/L Lactate Dehydrogenase (313-618) U/L C-Reactive Protein (<10.0) mg/L Total Protein (6.3-8.2) g/dL Albumin (3.5-5.0) g/dL Assessment and Plan Plan: 1 acute Covid 19 related pneumonia, symptoms started on 04/28/2020, diagnosed to be positive on 04/29/2020 and currently presenting with worsening shortness of breath and hypoxic respiratory failure, after being on 4 L the patient progressed to high flow and currently she is on a BiPAP and she does developed diffuse bilateral pulmonary infiltrates. This is rapid progression with hypoxemic respiratory failure. She is currently on steroids and REM day #2. 2 acute hypoxic respiratory failure currently and see above-mentioned discussion 3 fever secondary to above 4 leukopenia, lymphopenia and thrombocytopenia secondary to above, white cell count remains low 5 mild elevation of inflammatory markers secondary to Covid 19 infection 6 obesity with a BMI of 47.0 7 diabetes mellitus type 2 8 hypertension 9 hyperlipidemia 10 hypothyroidism Plan Continue BiPAP 11/12 with an FiO2 of 100% Start the patient IV Solu Medrol 60 mg every 6 hours Continue REM day #3 Order convalescent plasma one unit Order Tocilizumab milligram per KG Lovenox 40 mg subcu for DVT prophylaxis Vitamin C and vitamin D and zinc supplements Resume home medications NovoLog sliding scale insulin coverage for blood sugar control and anticipate steroid-induced hyperglycemia Monitor inflammatory markers We'll continue to follow.
--- NOTE | 2020-05-05 11:58 | P.HPIM ---
History of Present Illness This is a pleasant 49 years old female with past medical history of diabetes mellitus, hypertension, hyperlipidemia, hyperthyroidism, GI bleed, GERD. Patient presents because of dyspnea and hypoxia, she was diagnosed with Covid infection a few days ago, she was checking her oxygen saturation was dropping to 70s. Also complaining of from chest pain and abdominal pain with coughing mainly. On admission she had a fever of 101.2, she was hypoxic saturating 92% on 3 L oxygen via nasal cannula , Her oxygen requirement went up quickly and now she is on 15 L via nonrebreather. leukopenia with wbc 1.2k, hemoglobin 10.7 and platelets 79k. D-dimer is slightly elevated at 0.65. Basic metabolic panel is unremarkable, sugar control. Liver enzymes not significantly elevated, C-reactive protein is high at 56, lactate dehydration and his hives at 835. Chest x-ray showed a progressive airspace infiltrates are seen throughout both lung hernandez. EKG showing normal sinus rhythm at [address]-T changes Review of Systems CONSTITUTIONAL: No fever, no malaise, no fatigue. HEENT: No recent visual problems or hearing problems. Denied any sore throat. CARDIOVASCULAR: No orthopnea, PND, no palpitations, no syncope. PULMONARY: No chest wall tenderness, no hemoptysis. GASTROINTESTINAL: No diarrhea, no nausea, no vomiting, no abdominal pain. Normoactive bowel sounds. NEUROLOGICAL: No headaches, no weakness, no numbness. HEMATOLOGICAL: Denies any bleeding or petechiae. GENITOURINARY: Denies any burning micturition, frequency, or urgency. MUSCULOSKELETAL/RHEUMATOLOGICAL: Denies any joint pain, swelling, or any muscle pain. ENDOCRINE: Denies any polyuria or polydipsia. Past Medical History Past Medical History: Diabetes Mellitus, GERD/Reflux, GI Bleed, Hyperlipidemia, Hypertension, Thyroid Disorder Additional Past Medical History / Comment(s): HX PANTOCYPOPENIA-CT SCAN REVEALED ENLARGED SPLEEN History of Any Multi-Drug Resistant Organisms: None Reported Past Surgical History: Bariatric Surgery, Cholecystectomy, Heart Catheterization, Tonsillectomy Additional Past Surgical History / Comment(s): COLONOSCOPY. SPINAL FUSION 2018. GASTRIC SLEEVE 2011 Past Anesthesia/Blood Transfusion Reactions: No Reported Reaction Past Psychological History: Depression Smoking Status: Never smoker Past Alcohol Use History: None Reported Past Drug Use History: None Reported - Past Family History Mother Family Medical History: Cancer Father Family Medical History: Cancer Medications and Allergies Home Medications Medication Instructions Recorded Confirmed Type Levothyroxine Sodium [Synthroid] 75 mcg PO DAILY 10/17/15 05/04/20 History Omeprazole [PriLOSEC] 20 mg PO -KFST 10/17/15 05/04/20 History Allopurinol [Zyloprim] 100 mg PO DAILY 03/05/20 05/04/20 History Atorvastatin [Lipitor] 40 mg PO DAILY 03/05/20 05/04/20 History Baclofen [Lioresal] 20 mg PO HS 03/05/20 05/04/20 History Ergocalciferol [Vitamin D2 (1250 1,250 mcg PO DELACRUZ 03/05/20 05/04/20 History Mcg = 52592 Iu)] Escitalopram [Lexapro] 20 mg PO DAILY 03/05/20 05/04/20 History Ferrous Sulfate [Feosol] 325 mg PO DAILY 03/05/20 05/04/20 History Gabapentin [Neurontin] 600 mg PO QID 03/05/20 05/04/20 History Glimepiride [Amaryl] 4 mg PO -[facility] 03/05/20 05/04/20 History Lisinopril [Prinivil] 10 mg PO DAILY 03/05/20 05/04/20 History Melatonin 3 mg PO HS 03/05/20 05/04/20 History Pioglitazone [Actos] 30 mg PO DAILY 03/05/20 05/04/20 History metFORMIN HCL [Glucophage] 500 mg PO TID 03/05/20 05/04/20 History Ibuprofen [Motrin] 800 mg PO Q8H PRN 05/04/20 05/04/20 History Allergies Allergy/AdvReac Type Severity Reaction Status Date / Time codeine Allergy Rash/Hives Verified 05/04/20 13:52 Physical Exam Vitals: Vital Signs Temp Pulse Pulse Resp BP BP Pulse Ox 05/05/20 10:07 98.4 F 78 22 118/70 91 L 05/05/20 08:00 65 19 05/05/20 07:42 88 L 05/05/20 05:52 98.4 F 65 19 104/70 89 L 05/05/20 05:36 91 L 05/05/20 05:30 96 05/05/20 05:00 94 L 05/05/20 04:33 88 L 05/05/20 03:38 96 05/05/20 02:56 93 L 05/05/20 02:52 20 90 L 05/05/20 02:45 85 L 05/04/20 23:08 97.3 F L 67 20 92 L 05/04/20 21:57 99.6 F 05/04/20 20:56 65 20 111/65 05/04/20 19:24 97.9 F 68 92 L 05/04/20 16:40 98.3 F 66 18 100/53 94 L 05/04/20 14:44 98.3 F 74 18 110/61 94 L 05/04/20 12:36 18 05/04/20 12:22 101.2 F H 89 22 113/74 96 Intake and Output 05/04/20 05/05/20 05/05/20 22:59 06:59 14:59 Intake Total 1000 Balance 1000 Intake: Intake, IV Titration 1000 Amount Sodium Chloride 0.9% 1, 1000 000 ml @ 100 mls/hr IV . Q10H [facility] Rx#:[id number] Other: Voiding Method Toilet Toilet # Voids 1 1 Weight 136.078 kg -GENERAL: The patient is alert and oriented x3, not in any acute distress. Obese HEENT: Pupils are round and equally reacting to light. EOMI. No scleral icterus. No conjunctival pallor. Normocephalic, atraumatic. No pharyngeal erythema. No thyromegaly. CARDIOVASCULAR: S1 and S2 present. No murmurs, rubs, or gallops. -PULMONARY: Chest is clear to auscultation, bilateral crepitation and crackles with decreased air entry ABDOMEN: Soft, nontender, nondistended, normoactive bowel sounds. No palpable organomegaly. MUSCULOSKELETAL: No joint swelling or deformity. EXTREMITIES: No cyanosis, clubbing, or pedal edema. NEUROLOGICAL: Gross neurological examination did not reveal any focal deficits. SKIN: No rashes. No petechiae Results CBC & Chem 7: 05/05/20 07:53 05/05/20 07:53 Labs: Abnormal Lab Results - Last 24 Hours (Table) 05/04/20 05/04/20 05/04/20 Range/Units 12:43 12:43 12:43 WBC 1.4 L* (3.8-10.6) k/uL Hgb (11.4-16.0) gm/dL Hct 33.7 L (34.0-46.0) % RDW 15.8 H (11.5-15.5) % Plt Count 80 L (150-450) k/uL Neutrophils # 0.6 L (1.3-7.7) k/uL Lymphocytes # 0.6 L (1.0-4.8) k/uL APTT 30.2 H (22.0-30.0) sec D-Dimer (<0.60) mg/L FEU Sodium 135 L (137-145) mmol/L Glucose (74-99) mg/dL POC Glucose (mg/dL) (75-99) mg/dL Plasma Lactic Acid Hossein (0.7-2.0) mmol/L Calcium (8.4-10.2) mg/dL AST 87 H (14-36) U/L ALT 37 H (4-34) U/L Alkaline Phosphatase 174 H (38-126) U/L Lactate Dehydrogenase 802 H (313-618) U/L C-Reactive Protein 55.0 H (<10.0) mg/L Total Protein (6.3-8.2) g/dL Albumin 3.4 L (3.5-5.0) g/dL 05/04/20 05/04/20 05/04/20 Range/Units 12:43 20:38 23:29 WBC (3.8-10.6) k/uL Hgb (11.4-16.0) gm/dL Hct (34.0-46.0) % RDW (11.5-15.5) % Plt Count (150-450) k/uL Neutrophils # (1.3-7.7) k/uL Lymphocytes # (1.0-4.8) k/uL APTT (22.0-30.0) sec D-Dimer (<0.60) mg/L FEU Sodium (137-145) mmol/L Glucose (74-99) mg/dL POC Glucose (mg/dL) 376 H 419 H (75-99) mg/dL Plasma Lactic Acid Hossein 2.1 H* (0.7-2.0) mmol/L Calcium (8.4-10.2) mg/dL AST (14-36) U/L ALT (4-34) U/L Alkaline Phosphatase (38-126) U/L Lactate Dehydrogenase (313-618) U/L C-Reactive Protein (<10.0) mg/L Total Protein (6.3-8.2) g/dL Albumin (3.5-5.0) g/dL 05/05/20 05/05/20 05/05/20 Range/Units 07:12 07:53 07:53 WBC 1.2 L* (3.8-10.6) k/uL Hgb 10.7 L (11.4-16.0) gm/dL Hct 33.7 L (34.0-46.0) % RDW 16.2 H (11.5-15.5) % Plt Count 79 L (150-450) k/uL Neutrophils # 0.6 L (1.3-7.7) k/uL Lymphocytes # 0.6 L (1.0-4.8) k/uL APTT (22.0-30.0) sec D-Dimer (<0.60) mg/L FEU Sodium (137-145) mmol/L Glucose 148 H (74-99) mg/dL POC Glucose (mg/dL) 182 H (75-99) mg/dL Plasma Lactic Acid Hossein (0.7-2.0) mmol/L Calcium 8.2 L (8.4-10.2) mg/dL AST 73 H (14-36) U/L ALT (4-34) U/L Alkaline Phosphatase 151 H (38-126) U/L Lactate Dehydrogenase 835 H (313-618) U/L C-Reactive Protein 56.0 H (<10.0) mg/L Total Protein 6.2 L (6.3-8.2) g/dL Albumin 3.1 L (3.5-5.0) g/dL 05/05/20 Range/Units 07:53 WBC (3.8-10.6) k/uL Hgb (11.4-16.0) gm/dL Hct (34.0-46.0) % RDW (11.5-15.5) % Plt Count (150-450) k/uL Neutrophils # (1.3-7.7) k/uL Lymphocytes # (1.0-4.8) k/uL APTT (22.0-30.0) sec D-Dimer 0.65 H (<0.60) mg/L FEU Sodium (137-145) mmol/L Glucose (74-99) mg/dL POC Glucose (mg/dL) (75-99) mg/dL Plasma Lactic Acid Hossein (0.7-2.0) mmol/L Calcium (8.4-10.2) mg/dL AST (14-36) U/L ALT (4-34) U/L Alkaline Phosphatase (38-126) U/L Lactate Dehydrogenase (313-618) U/L C-Reactive Protein (<10.0) mg/L Total Protein (6.3-8.2) g/dL Albumin (3.5-5.0) g/dL Thrombosis Risk Factor Assmnt - Choose All That Apply Each Factor Represents 1 point: Age 41-60 years, Obesity (BMI >25) Thrombosis Risk Factor Assessment Total Risk Factor Score: 2 Thrombosis Risk Factor Assessment Level: Low Risk Assessment and Plan Assessment: Acute bilateral cold feet pneumonia Acute hypoxic respiratory failure Increased inflammatory markers Pancytopenia, could be related to Covid infection Type 2 diabetes mellitus Hypertension Hyperlipidemia Hyperthyroidism Current History of GI bleed Morbid obesity with BMI of 47 Plan: This is a pleasant 59 years old female who presents with Covid and hypoxia. Continue with steroids, zinc and vitamin C. Continue with Lovenox. Continue the breathing treatments and oxygen as needed. Pulmonary team on the case. Patient is getting Remdesivir under pulmonary guidance. Also she is an normal saline. Monitor inflammatory markers. Check reportcalcitonin and d-dimer. Also we'll check vitamin B12 and folate level. Labs and medication were reviewed.. Continue same treatment. Continue with symptomatic treatment. Resume home medication. Monitor lytes and vitals. DVT and GI prophylaxis. Further recommendationsas per clinical course of the patient DVT prophylaxis: Subcutaneous Lovenox GI Prophylaxis: Pepcid Prognosis is guarded
[2020-05-05] MEDS: methylPREDNISolone SOD SUCCI 125 MG/2 ML VIAL IV SCH ×2 (12:26→17:48)
[2020-05-05] MEDS ORDERED: TOCILIZUMAB 400 MG in SODIUM CHLORIDE 0.9% 80 ML IV ONE (12:30)
[2020-05-05] MEDS: REMDESIVIR 100 MG in SODIUM CHLORIDE 0.9% 250 ML IVPB SCH (16:35)
[2020-05-05 17:42] LABS: Glucose,Whole Blood 139 mg/dL (75-99)
[2020-05-05 20:15] LABS: Glucose,Whole Blood 162 mg/dL (75-99)
[2020-05-05] MEDS: BACLOFEN 10 MG TAB PO SCH (20:57)
[2020-05-05] MEDS: FAMOTIDINE 20 MG/2 ML VIAL IV SCH (20:58)
[2020-05-06] MEDS: methylPREDNISolone SOD SUCCI 125 MG/2 ML VIAL IV SCH ×5 (00:31→22:30)
--- NOTE | 2020-05-06 04:39 | PN ---
PROGRESS NOTE DATE OF SERVICE: 05/05/2020 REASON FOR FOLLOWUP: COVID-19 pneumonia. INTERVAL HISTORY: Patient is currently afebrile. The patient did have worsening respiratory status requiring a BiPAP. The patient denies having chest pain. Did have a cough, not bringing up any sputum. No nausea, vomiting. No abdominal pain or any worsening diarrhea. PHYSICAL EXAMINATION: Blood pressure 143/84, pulse of 65, temperature 98.2. She is 95% on BiPAP. General description is a middle-aged female up in the bed in no distress. Respiratory system: Unlabored breathing, decreased intensity of breath sounds. No wheeze. HEART: S1, S2. Regular rate. ABDOMEN: Soft, no tenderness. LAB: Hemoglobin 10.7, white count 10.2, BUN of 14 and creatinine 0.65. DIAGNOSTIC IMPRESSION AND PLAN: Patient with acute COVID-19 pneumonia in this patient who does have worsening of her respiratory status. Patient is covered with Lovenox. Steroid has been switched over to Solu-Medrol to continue along with Zosyn and monitor clinical course closely. Continue supportive care. MMODL / IJN: [id number] /
[2020-05-06] MEDS: LEVOTHYROXINE 75 MCG TAB PO SCH (05:45)
[2020-05-06] MEDS: SODIUM CHLORIDE 0.9% 1,000 ML IV SCH ×2 (05:45→13:05)
[2020-05-06 07:02] LABS: Glucose,Whole Blood 150 mg/dL (75-99)
[2020-05-06] MEDS: ENOXAPARIN 40 MG/0.4 ML SYRINGE SQ SCH (08:02)
[2020-05-06] MEDS: GLIMEPIRIDE 4 MG TAB PO SCH (08:03)
[2020-05-06] MEDS: INSULIN ASPART (NovoLOG) 100 UNIT/ML VIAL SQ SCH ×7 (08:03→21:35)
[2020-05-06] MEDS: FAMOTIDINE 20 MG/2 ML VIAL IV SCH ×2 (08:05→21:35)
[2020-05-06] MEDS: ASCORBIC ACID 500 MG TAB PO SCH (08:06)
[2020-05-06] MEDS: allopurinoL 100 MG TAB PO SCH (08:06)
[2020-05-06] MEDS: metFORMIN 500 MG TAB PO SCH ×3 (08:06→18:52)
[2020-05-06] MEDS: ATORVASTATIN 40 MG TAB PO SCH (08:06)
[2020-05-06] MEDS: FERROUS SULFATE 325 MG TAB PO SCH (08:08)
[2020-05-06] MEDS: GABAPENTIN 300 MG CAP PO SCH ×4 (08:08→21:35)
[2020-05-06] MEDS: lisinopriL 10 MG TAB PO SCH (08:08)
[2020-05-06] MEDS: CHOLECALCIFEROL 25 MCG (1000 IU) TABLET PO SCH (08:08)
[2020-05-06] MEDS: ZINC SULFATE 220 MG CAP PO SCH (08:08)
[2020-05-06] MEDS: ESCITALOPRAM 20 MG TAB PO SCH (08:08)
--- NOTE | 2020-05-06 08:34 | XR ---
EXAMINATION TYPE: XR chest 1V DATE OF EXAM: 05/06/2020 COMPARISON: 05/05/2020 HISTORY: 59-year-old female COVID TECHNIQUE: Single frontal view of the chest is obtained. FINDINGS: Heart mildly enlarged. Bilateral interstitial and patchy airspace opacities remain but are improved f rom prior exam. No pneumothorax. No sizable effusion. IMPRESSION: 1. Mild cardiomegaly. 2. Hypoventilatory changes. 3. Residual bilateral airspace disease, improving from prior exam.
[2020-05-06] MEDS: ONDANSETRON 4 MG/2 ML VIAL IVP PRN ×2 (08:38→21:35)
[2020-05-06 10:01] LABS: C Reactive Protein 2.8 mg/dL (0.0-0.8)
[2020-05-06 11:59] LABS: Glucose,Whole Blood 146 mg/dL (75-99)
[2020-05-06] MEDS: guaiFENesin SYRUP 100MG/5ML 200 MG/10 ML CUP PO PRN (12:30)
--- NOTE | 2020-05-06 15:53 | P.PN ---
Subjective Progress Note Date: 05/06/20 [id number] female admitted with acute hypoxic respiratory failure secondary to covid- 19 pneumonia, hypertension, diabetes mellitus, obesity and multiple other medical issues. Oxygen requirements worsened, requiring BiPAP. Chest x-ray reporting bilateral interstitial and patchy airspace opacities remain ,mild cardiomegaly. Denies chest pain, palpitations, reports chest soreness from nonproductive cough. Received a dose of Actemra, maintained on Remdesevir, IV steroids , antibiotics and multivitamin supplements. Afebrile, LDH and C- reactive protein trending down. Objective - Vital Signs Vital signs: Vital Signs Temp 97.8 F 05/06/20 09:15 Pulse 65 05/06/20 09:15 Resp 18 05/06/20 09:15 BP 121/72 05/06/20 09:15 Pulse Ox 93 L 05/06/20 09:15 Intake & Output 05/05/20 05/06/20 05/06/20 18:59 06:59 18:59 Intake Total 315 Balance 315 Intake: Blood Product 315 Ffp Convalescent Plasma 315 Cpd Unit [id number] Other: Voiding Method Toilet Toilet # Voids 3 2 # Bowel Movements 1 - Exam PHYSICAL EXAM: VITAL SIGNS: [As above] GENERAL: Sitting up in bed wearing BiPAP, respiratory effort increased HEENT: Conjunctivae normal. eyes normal. NECK: Supple, No JVD. CARDIOVASCULAR: S1, S2 regular.No murmur RESPIRATION: Breath sounds diminished in the bases. No rhonchi, bibasilar crackles ABDOMEN: Soft, nontender . Nondistended. No guarding. no masses palpable. No ascites, No hepatosplenomegaly.Bowel sounds heard. LEGS: No edema. no swelling, no cyanosis, no clubbing. PSYCHIATRY: Alert and oriented X3, mood and affect normal. NERVOUS SYSTEM: Cranial N 2-12 grossly normal. Moves all 4 limbs. Diffuse weakness, No focal deficits. Strength and sensation grossly intact.. Skin: Warm and dry, no rash - Labs CBC & Chem 7: 05/05/20 07:53 05/05/20 07:53 Labs: Abnormal Lab Results - Last 24 Hours (Table) 05/05/20 05/05/20 05/06/20 Range/Units 17:41 20:13 06:14 D-Dimer 0.84 H (<0.60) mg/L FEU POC Glucose (mg/dL) 139 H 162 H (75-99) mg/dL Lactate Dehydrogenase (120-246) U/L C-Reactive Protein (0.0-0.8) mg/dL 05/06/20 05/06/20 05/06/20 Range/Units 06:14 07:00 11:57 D-Dimer (<0.60) mg/L FEU POC Glucose (mg/dL) 150 H 146 H (75-99) mg/dL Lactate Dehydrogenase 459 H (120-246) U/L C-Reactive Protein 2.8 H (0.0-0.8) mg/dL Microbiology - Last 24 Hours (Table) 05/04/20 13:36 Blood Culture - Preliminary Blood No Growth after 24 hours 05/04/20 13:36 Blood Culture - Preliminary Blood No Growth after 24 hours Assessment and Plan Assessment: Acute Covid-19 pneumonia Acute hypoxic respiratory failure secondary to the above, worsening, requiring BiPAP now leukopenia, lymphopenia and thrombocytopenia secondary to above Diabetes mellitus type 2 Hypertension Hyperlipidemia Hypothyroidism Morbid obesity, BMI 47 Plan: Continue on current medication regimen, monitoring and symptomatic treatment. Continue on Covid regimen including Remdesevir.Convalescent plasma ordered. Steroids adjusted. Codeine ALLERGY-Robitussin ordered for cough. Maintained on Pepcid for GI prophylaxis, Lovenox for DVT prophylaxis. Prognosis guarded given multiple complex medical issues. The impression and plan of care has been dictated as directed. : I performed a history and examination of this patient, discussed the same with the dictator. I agree with the dictator's note ,documented as a scribe. Any additional findings or plans will be noted.
[2020-05-06] MEDS: REMDESIVIR 100 MG in SODIUM CHLORIDE 0.9% 250 ML IVPB SCH (16:23)
[2020-05-06 16:43] LABS: Glucose,Whole Blood 98 mg/dL (75-99)
--- NOTE | 2020-05-06 17:59 | P.PN ---
Subjective Progress Note Date: 05/06/20 Principal diagnosis: Acute CoVID 19 pneumonia 79-year-old female patient, morbidly obese with a BMI of 47, was hospitalized for COVID 19 related pneumonia. The patient currently is hypoxic on 3 L of oxygen by nasal cannula. She has comorbidities including obesity with a BMI of 47, hypertension, diabetes mellitus and gout. She also has hyperlipidemia and hypothyroidism. The patient started getting symptoms approximately a week ago, on 04/28/2020 and the patient was diagnosed having Covid 19 infection for a primary care physician's office on 04/29.. She continued to have episodes of fever and subsequently she became progressively more short of breath necessitating emergency department visitation today and ultimately she was hospitalized. Her chest x-ray showing bilateral pulmonary infiltrates peripheral distribution more so on the right compared to the left. The patient was started on steroids.. She is slightly nauseated. She also has loss of taste and smell LDH level is currently at 802 with a CRP of 55 and she had a lactic acid level of 2.1 at the time of admission. There d-dimer is still pending for now. Her white cell count is at 1.4 and the patient is lymphopenic with a lymphocyte count of 0.6 and there is also a drop in her platelet count down to 80 and these are all manifestations of COVID 19 infection. On today's evaluation of 04/27/2020, the patient's oxygenation has gotten worse. I saw her in the emergency department yesterday and she was on 4 L. She progressively required higher oxygen flow and she went up to a high flow oxygen through the nasal cannula airvo which she feels a currently she is on a BiPAP at a pressure of 10/5 with an FiO2 of 100%. She is able to generate a tidal volume around 450-500. Respiratory rate is in the mid 30s low 40s. She feels well. She is in mild degree of respiratory distress. She is still able to converse and talk to her BiPAP mask. Her current pulse ox is 94%. 60 showing diffuse breath and pulmonary infiltrates consistent with Covid 19 related pneumonia. Her white cell count is still down at 1.2. Platelet count is at 70 now which is low. D-dimer is at 0.65, her LDH level is at 835 with a CRP of 56. She is on Decadron. I'm going to switch her to Solu-Medrol. She is currently taking REM should be considered for convalescent plasma and addition to Tocilizumab The patient is seen today 05/06/2020 in follow-up on the regular medical floor. She is currently sitting up in bed. Awake and alert in no acute distress. Currently on BiPAP 10/5 and 100% FiO2. Current saturation 88%. Chest x-ray reveals mild, medically. Residual bilateral airspace disease. Improving compared to previous. This is day #3 of Remdesivir. She received convalescent plasma 1, tocilizumab. D-dimer 0.84. C-reactive protein 2.8. LDH 459. She remains on Decadron, IV Solu-Medrol, vitamin supplements. Objective - Vital Signs Vital signs: Vital Signs Temp 97.5 F L 05/06/20 14:25 Pulse 65 05/06/20 14:25 Resp 20 05/06/20 14:25 BP 133/74 05/06/20 14:25 Pulse Ox 97 05/06/20 14:25 Intake & Output 05/05/20 05/06/20 05/06/20 18:59 06:59 18:59 Intake Total 315 Balance 315 Intake: Blood Product 315 Ffp Convalescent Plasma 315 Cpd Unit [id number] Other: Voiding Method Toilet Toilet # Voids 3 2 # Bowel Movements 1 - Exam Gen. appearance morbidly obese very pleasant 59-year-old female patient, she is calm and comfortable, currently on BiPAP 10/5 with an FiO2 of 100% and the patient is a bit short of breath Head exam was generally normal. There was no scleral icterus or corneal arcus. Mucous membranes were moist. Neck was supple and without jugular venous distension, thyromegaly, or carotid bruits. Carotids were easily palpable bilaterally. There was no adenopathy. Lungs sounds are diminished the patient is crackles in the lung bases more so on the right Cardiac exam revealed the PMI to be normally situated and sized. The rhythm was regular and no extrasystoles were noted during several minutes of auscultation. The first and second heart sounds were normal and physiologic splitting of the second heart sound was noted. There were no murmurs, rubs, clicks, or gallops. Abdominal exam revealed normal bowel sounds. The abdomen was soft, non-tender, and without masses, organomegaly, or appreciable enlargement of the abdominal aorta. Examination of the extremities revealed easily palpable radial, femoral and pedal pulses. There was no cyanosis, clubbing or edema. Examination of the skin revealed no evidence of significant rashes, suspicious appearing nevi or other concerning lesions. Neurologically, the patient is awake and alert and the patient does not have any focal neurological deficit. Cranial nerves are essentially intact. - Labs CBC & Chem 7: 05/05/20 07:53 05/05/20 07:53 Labs: Abnormal Lab Results - Last 24 Hours (Table) 05/05/20 05/06/20 05/06/20 Range/Units 20:13 06:14 06:14 D-Dimer 0.84 H (<0.60) mg/L FEU POC Glucose (mg/dL) 162 H (75-99) mg/dL Lactate Dehydrogenase 459 H (120-246) U/L C-Reactive Protein 2.8 H (0.0-0.8) mg/dL 05/06/20 05/06/20 Range/Units 07:00 11:57 D-Dimer (<0.60) mg/L FEU POC Glucose (mg/dL) 150 H 146 H (75-99) mg/dL Lactate Dehydrogenase (120-246) U/L C-Reactive Protein (0.0-0.8) mg/dL Microbiology - Last 24 Hours (Table) 05/04/20 13:36 Blood Culture - Preliminary Blood No Growth after 48 hours 05/04/20 13:36 Blood Culture - Preliminary Blood No Growth after 48 hours Assessment and Plan Assessment: 1 acute Covid 19 related pneumonia, symptoms started on 04/28/2020, diagnosed to be positive on 04/29/2020 and currently presenting with worsening shortness of breath and hypoxic respiratory failure, after being on 4 L the patient progressed to high flow and currently she is on a BiPAP and she does developed diffuse bilateral pulmonary infiltrates. This is rapid progression with hypoxemic respiratory failure. Day #3 of Remdesivir, she received tocilizumab and convalescent plasma. 2 acute hypoxic respiratory failure secondary to above 3 fever secondary to above 4 leukopenia, lymphopenia and thrombocytopenia secondary to above, white cell count remains low 5 mild elevation of inflammatory markers secondary to Covid 19 infection 6 obesity with a BMI of 47.0 7 diabetes mellitus type 2 8 hypertension 9 hyperlipidemia 10 hypothyroidism Plan The patient was seen and evaluated by Dr. Youngblood Remains on BiPAP 11/12 in 100% FiO2 Received convalescent plasma, tocilizumab This is day #3 of Remdesivir Remains on Decadron, Lovenox, vitamin supplements Titrate down the FiO2 as tolerated We'll continue to follow
[2020-05-06 20:35] LABS: Glucose,Whole Blood 142 mg/dL (75-99)
[2020-05-06] MEDS: BACLOFEN 10 MG TAB PO SCH (21:35)
[2020-05-06] MEDS: INSULIN DETEMIR (LEVEMIR) 100 UNIT/ML SYR SQ SCH (22:19)
--- NOTE | 2020-05-06 23:22 | PN ---
PROGRESS NOTE DATE OF SERVICE: 05/06/2020 REASON FOR FOLLOWUP: COVID-19 pneumonia. INTERVAL HISTORY: The patient is currently afebrile. The patient is breathing comfortably, still requiring BiPAP. The patient denies having any chest pain. Occasional cough. No nausea, no vomiting, no abdominal pain or diarrhea. PHYSICAL EXAMINATION: Blood pressure 125/72 with a pulse of 59, temperature 97.5. She is 98% on BiPAP. General description is a middle-aged female lying in bed in no distress. RESPIRATORY SYSTEM: Unlabored breathing with decreased intensity of breath sounds. No wheeze. HEART: S1, S2. Regular rate and rhythm. ABDOMEN: Soft. No tenderness. LABS: D-dimer 0.84. CRP is 2.8. Procalcitonin 0.13. DIAGNOSTIC IMPRESSION AND PLAN: Patient with acute respiratory failure secondary to acute COVID-19 infection in this patient who seems to have shown slight worsening of her clinical condition. The patient is currently on Lovenox, Solu-Medrol and remdesivir; to continue along with zinc sulfate and monitor clinical course closely. Continue with supportive care. MMODL / IJN: [id number] /
[2020-05-07] MEDS: SODIUM CHLORIDE 0.9% 1,000 ML IV SCH ×2 (04:57→17:06)
[2020-05-07 06:03] LABS: Glucose,Whole Blood 164 mg/dL (75-99)
[2020-05-07] MEDS: LEVOTHYROXINE 75 MCG TAB PO SCH (06:29)
[2020-05-07] MEDS: methylPREDNISolone SOD SUCCI 125 MG/2 ML VIAL IV SCH ×3 (06:29→16:57)
[2020-05-07] MEDS: INSULIN ASPART (NovoLOG) 100 UNIT/ML VIAL SQ SCH ×7 (06:29→20:42)
[2020-05-07 07:58] LABS: Anisocytosis Slight; Basophils % (A) 0 %; Eosinophils % (A) 1 %; HCT 33.6 % (34.0-46.0); HGB 11.1 gm/dL (11.4-16.0); Hypochromasia Slight; Lymphocytes # (A) 0.5 k/uL (1.0-4.8); Lymphocytes % (A) 34 %; MCH 29.1 pg (25.0-35.0); MCV 88.1 fL (80.0-100.0); Mean Platelet Volume 8.6; Monocytes # (A) 0.1 k/uL (0-1.0); Monocytes % (A) 7 %; Neutrophils # (A) 0.8 k/uL (1.3-7.7); Neutrophils % (A) 56 %; RBC 3.82 m/uL (3.80-5.40); RDW 16.3 % (11.5-15.5)
[2020-05-07 08:06] LABS: Platelet Count 92 k/uL (150-450); WBC 1.4 k/uL (3.8-10.6)
[2020-05-07 08:14] LABS: African American GFR (CKD) >90 (>60 ml/min/1.73 sqM); Anion Gap 4 mmol/L; Blood Urea Nitrogen 19 mg/dL (7-17); Calcium 8.3 mg/dL (8.4-10.2); Carbon Dioxide 28 mmol/L (22-30); Chloride 106 mmol/L (98-107); Glucose 157 mg/dL (74-99); Non-African American GFR(CKD) >90 (>60 ml/min/1.73 sqM); Potassium 4.6 mmol/L (3.5-5.1); Sodium 138 mmol/L (137-145)
[2020-05-07 08:48] LABS: LDH 1369 U/L (313-618)
[2020-05-07] MEDS: GLIMEPIRIDE 4 MG TAB PO SCH (09:14)
[2020-05-07] MEDS: metFORMIN 500 MG TAB PO SCH ×3 (09:15→16:56)
[2020-05-07] MEDS: CHOLECALCIFEROL 25 MCG (1000 IU) TABLET PO SCH (09:17)
[2020-05-07] MEDS: FERROUS SULFATE 325 MG TAB PO SCH (09:17)
[2020-05-07] MEDS: allopurinoL 100 MG TAB PO SCH (09:17)
[2020-05-07] MEDS: ASCORBIC ACID 500 MG TAB PO SCH (09:18)
[2020-05-07] MEDS: ATORVASTATIN 40 MG TAB PO SCH (09:18)
[2020-05-07] MEDS: ESCITALOPRAM 20 MG TAB PO SCH (09:18)
[2020-05-07] MEDS: ZINC SULFATE 220 MG CAP PO SCH (09:18)
[2020-05-07] MEDS: FAMOTIDINE 20 MG/2 ML VIAL IV SCH ×2 (09:18→20:41)
[2020-05-07] MEDS: lisinopriL 10 MG TAB PO SCH (09:18)
[2020-05-07] MEDS: ENOXAPARIN 40 MG/0.4 ML SYRINGE SQ SCH (09:18)
[2020-05-07] MEDS: GABAPENTIN 300 MG CAP PO SCH ×4 (09:18→20:41)
--- NOTE | 2020-05-07 11:32 | CDI ---
Documentation Clarification Form Date: 05/07/2020 11:04:59 AM From: Joya Hernandez RN, CCDS Admit Date: 05/04/2020 01:19:00 PM Patient Name: Trang Balderas Visit Number: [id number] Discharge Date: ATTENTION: The Clinical Documentation Specialists (CDI) and [facility] Coding Staff appreciate your assistance in clarifying documentation. Please respond to the clarification below the line at the bottom and electronically sign. The CDI & [facility] Coding staff will review the response and follow-up if needed. Please note: Queries are made part of the Legal Health Record. If you have any questions, please contact the author of this message via ITS. Dr. Gilmar Aviles The patient presented with the following clinical indicators. Additional clarification regarding the etiology/cause of the clinical indicators is requested. History/Risk Factors: Diabetes Mellitus, Hypertension, Hyperlipidemia, Obesity Clinical Indicators: 59-year-old female present to ED on 05/04 for shortness of breath. She had persistent fevers and known coronavirus positive. She reports dyspnea on exertion 05/04 WBC: 1.4, Lymphocyte 0.6, Platelet 80, LDH 802, CPR 55 05/04 Lactic acid: 2.1 05/04 CXR: positive for coronavirus pneumonia Blood cultures: 05/04 Vital signs: 113/74 89 22 101.2 96 % Treatment: Telemetry Monitoring Monitor O2 Sat's (Titrate) Tocilizumab 400 MG IV X1 .9NS 1,000 MLS Bous then run @100 MLS/HR Remdesivir 100 MB IVPB X4 Bags Solu-Medrol 60 MB IV Q 6HR Rocephin 1 GM IVPB Q 24 HRS (Started 05/06 05/04 ID Consult: "Patient admitted to the hospital with increasing shortness of breath, cough, hypoxemia in this patient who did have fever on admission t o the hospital with evidence of bilateral infiltrate secondary to acute covid-19 pneumonia.' In your professional opinion, please clarify if these findings signify one of the following conditions: [ ] Sepsis POA [ ] Sepsis, Not POA [ ] Sepsis ruled out [ ] Severe Sepsis with organ failure [ ] Septic Shock [ ] SIRS, without underlying infectious process [ ] Other, please specify [ ] Unable to determine SIRS Criteria: 2 or more of the following may indicate SIRS Temperature < 96.8F (36C) or > 101.0F (38.3C) Heart Rate > 90 bpm Respiratory Rate > 20 breaths/min or PaCO2 < 32 mmHg White Blood Cell Count > 12,000 or < 4,000 cells/mm3 or > 10% bands (Template Last Reviewed: March 2020) Sepsis POA MTDD
--- NOTE | 2020-05-07 11:47 | P.PN ---
Subjective Progress Note Date: 05/07/20 [id number] female admitted with acute hypoxic respiratory failure secondary to covid- 19 pneumonia, hypertension, diabetes mellitus, obesity and multiple other medical issues. Oxygen requirements worsened, requiring BiPAP. Chest x-ray reporting bilateral interstitial and patchy airspace opacities remain ,mild cardiomegaly. Denies chest pain, palpitations, reports chest soreness from nonproductive cough. Received a dose of Actemra, maintained on Remdesevir, IV steroids , antibiotics and multivitamin supplements. Afebrile, LDH and C- reactive protein trending down. 05/07/2020 Maintained on Remdesevir/covid regimine. Continues to require BiPAP 100% to maintain O2 sats in the high 80s to 90s. Complains of anxiety regarding mask. Deep breaths trigger cough. Afebrile. Labs pending. Denies chest pain, palpitations. Objective - Vital Signs Vital signs: Vital Signs Temp 98.1 F 05/07/20 08:00 Pulse 67 05/07/20 08:00 Resp 16 05/07/20 08:00 BP 137/77 05/07/20 08:00 Pulse Ox 95 05/07/20 08:00 Intake & Output 05/06/20 05/07/20 05/07/20 18:59 06:59 18:59 Intake Total 660 Balance 660 Weight 137.5 kg Intake: Oral 660 Other: Voiding Method Toilet Toilet # Voids 1 1 - Exam PHYSICAL EXAM: VITAL SIGNS: [As above] GENERAL: Sitting up in bed wearing BiPAP, respiratory effort increased HEENT: Conjunctivae normal. eyes normal. NECK: Supple, No JVD. CARDIOVASCULAR: S1, S2 regular.No murmur RESPIRATION: Breath sounds essentially clear, diminished in the bases. No rhonchi, bibasilar crackles ABDOMEN: Soft, nontender . Nondistended. No guarding. no masses palpable. Positive Bowel sounds. LEGS: No edema. no swelling, no cyanosis, no clubbing. PSYCHIATRY: Alert and oriented X3, mood and affect anxious. NERVOUS SYSTEM: Cranial N 2-12 grossly normal. Moves all 4 limbs. Diffuse weakness, No focal deficits. Strength and sensation grossly intact.. Skin: Warm and dry, no rash - Labs CBC & Chem 7: 05/07/20 07:35 05/07/20 07:35 Labs: Abnormal Lab Results - Last 24 Hours (Table) 05/06/20 05/06/20 05/06/20 Range/Units 06:14 06:14 11:57 WBC (3.8-10.6) k/uL Hgb (11.4-16.0) gm/dL Hct (34.0-46.0) % RDW (11.5-15.5) % Neutrophils # (1.3-7.7) k/uL Lymphocytes # (1.0-4.8) k/uL D-Dimer (<0.60) mg/L FEU BUN (7-17) mg/dL Glucose (74-99) mg/dL POC Glucose (mg/dL) 146 H (75-99) mg/dL Calcium (8.4-10.2) mg/dL Lactate Dehydrogenase 459 H (120-246) U/L C-Reactive Protein (<10.0) mg/L Procalcitonin 0.13 H (0.02-0.09) ng/mL 05/06/20 05/07/20 05/07/20 Range/Units 20:34 06:02 07:35 WBC 1.4 L* (3.8-10.6) k/uL Hgb 11.1 L (11.4-16.0) gm/dL Hct 33.6 L (34.0-46.0) % RDW 16.3 H (11.5-15.5) % Neutrophils # 0.8 L (1.3-7.7) k/uL Lymphocytes # 0.5 L (1.0-4.8) k/uL D-Dimer (<0.60) mg/L FEU BUN (7-17) mg/dL Glucose (74-99) mg/dL POC Glucose (mg/dL) 142 H 164 H (75-99) mg/dL Calcium (8.4-10.2) mg/dL Lactate Dehydrogenase (120-246) U/L C-Reactive Protein (<10.0) mg/L Procalcitonin (0.02-0.09) ng/mL 05/07/20 05/07/20 Range/Units 07:35 07:35 WBC (3.8-10.6) k/uL Hgb (11.4-16.0) gm/dL Hct (34.0-46.0) % RDW (11.5-15.5) % Neutrophils # (1.3-7.7) k/uL Lymphocytes # (1.0-4.8) k/uL D-Dimer 0.92 H (<0.60) mg/L FEU BUN 19 H (7-17) mg/dL Glucose 157 H (74-99) mg/dL POC Glucose (mg/dL) (75-99) mg/dL Calcium 8.3 L (8.4-10.2) mg/dL Lactate Dehydrogenase 1369 H (120-246) U/L C-Reactive Protein 20.0 H (<10.0) mg/L Procalcitonin (0.02-0.09) ng/mL Microbiology - Last 24 Hours (Table) 05/04/20 13:36 Blood Culture - Preliminary Blood No Growth after 48 hours 05/04/20 13:36 Blood Culture - Preliminary Blood No Growth after 48 hours Assessment and Plan Assessment: Acute Covid-19 pneumonia Acute hypoxic respiratory failure secondary to the above,BiPAP dependent. Acute anxiety secondary to the above and BiPAP mask leukopenia, lymphopenia and thrombocytopenia secondary to above Diabetes mellitus type 2 Hypertension Hyperlipidemia Hypothyroidism Morbid obesity, BMI 47 Plan: Continue on current medication regimen, monitoring and symptomatic treatment.labs pending. IVP prn Ativan for anxiety.Maintain Covid regimen including Remdesevir.Received Convalescent plasma. Lovenox for DVT prophylaxis. Follow closely with pulmonary. Prognosis guarded given multiple complex medical issues. The impression and plan of care has been dictated as directed. : I performed a history and examination of this patient, discussed the same with the dictator. I agree with the dictator's note ,documented as a scribe. Any additional findings or plans will be noted.
[2020-05-07 11:59] LABS: Glucose,Whole Blood 159 mg/dL (75-99)
[2020-05-07] MEDS: LORazepam 2 MG/ML INJ IV PRN (12:50)
[2020-05-07 16:55] LABS: Glucose,Whole Blood 177 mg/dL (75-99)
[2020-05-07] MEDS: REMDESIVIR 100 MG in SODIUM CHLORIDE 0.9% 250 ML IVPB SCH (17:00)
--- NOTE | 2020-05-07 18:24 | P.PN ---
Subjective Progress Note Date: 05/07/20 Principal diagnosis: Acute hypoxic respiratory failure secondary to acute covid 19 pneumonia 79-year-old female patient, morbidly obese with a BMI of 47, was hospitalized for COVID 19 related pneumonia. The patient currently is hypoxic on 3 L of oxygen by nasal cannula. She has comorbidities including obesity with a BMI of 47, hypertension, diabetes mellitus and gout. She also has hyperlipidemia and hypothyroidism. The patient started getting symptoms approximately a week ago, on 04/28/2020 and the patient was diagnosed having Covid 19 infection for a primary care physician's office on 04/29.. She continued to have episodes of fever and subsequently she became progressively more short of breath necessitating emergency department visitation today and ultimately she was hospitalized. Her chest x-ray showing bilateral pulmonary infiltrates peripheral distribution more so on the right compared to the left. The patient was started on steroids.. She is slightly nauseated. She also has loss of taste and smell LDH level is currently at 802 with a CRP of 55 and she had a lactic acid level of 2.1 at the time of admission. There d-dimer is still pending for now. Her white cell count is at 1.4 and the patient is lymphopenic with a lymphocyte count of 0.6 and there is also a drop in her platelet count down to 80 and these are all manifestations of COVID 19 infection. On today's evaluation of 04/27/2020, the patient's oxygenation has gotten worse. I saw her in the emergency department yesterday and she was on 4 L. She progressively required higher oxygen flow and she went up to a high flow oxygen through the nasal cannula airvo which she feels a currently she is on a BiPAP at a pressure of 10/5 with an FiO2 of 100%. She is able to generate a tidal volume around 450-500. Respiratory rate is in the mid 30s low 40s. She feels well. She is in mild degree of respiratory distress. She is still able to converse and talk to her BiPAP mask. Her current pulse ox is 94%. 60 showing diffuse breath and pulmonary infiltrates consistent with Covid 19 related pneumonia. Her white cell count is still down at 1.2. Platelet count is at 70 now which is low. D-dimer is at 0.65, her LDH level is at 835 with a CRP of 56. She is on Decadron. I'm going to switch her to Solu-Medrol. She is currently taking REM should be considered for convalescent plasma and addition to Tocilizumab The patient is seen today 05/06/2020 in follow-up on the regular medical floor. She is currently sitting up in bed. Awake and alert in no acute distress. Cu rrently on BiPAP 10/5 and 100% FiO2. Current saturation 88%. Chest x-ray reveals mild, medically. Residual bilateral airspace disease. Improving compared to previous. This is day #3 of Remdesivir. She received convalescent plasma 1, tocilizumab. D-dimer 0.84. C-reactive protein 2.8. LDH 459. She remains on Decadron, IV Solu-Medrol, vitamin supplements. Patient was reevaluated today on 05/07/2020, presently on 100% FiO2, BiPAP with IPAP of 10 and EPAP of 5, she is on day #4 of remdesivir . Patient also received convalescent plasma and actemra area and her overall status remains marginal. Patient does not seem to be in distress although her O2 saturation has been running anywhere between 85-93% on BiPAP with 100% FiO2 chest x-ray continues to show bilateral infiltrates with significant consolidation in the left lower lobe. Objective - Vital Signs Vital signs: Vital Signs Temp 98.1 F 05/07/20 08:00 Pulse 61 05/07/20 16:00 Resp 21 05/07/20 16:00 BP 115/55 05/07/20 16:00 Pulse Ox 85 L 05/07/20 16:00 Intake & Output 05/06/20 05/07/20 05/07/20 18:59 06:59 18:59 Intake Total 660 180 Balance 660 180 Weight 137.5 kg Intake: Oral 660 180 Other: Voiding Method Toilet Toilet # Voids 1 1 1 # Bowel Movements 1 - Exam Physical Exam: Revealed a 59-year-old female on BiPAP, FiO2 is 100%, patient is on 10/5, not in distress. Head: Is atraumatic normocephalic. HEENT:[Neck is supple.] [No neck masses.] [No thyromegaly.] [No JVD.] Chest: [Symmetrical chest expansion, crackles at the bases bilaterally. Cardiac Exam: [Normal S1 and S2, no S3 gallop, no murmur.] Abdomen: [Soft, nontender, no megaly, no rebound, no guarding, normal bowel sounds.] Extremities: [No clubbing, no edema, no cyanosis.] Neurological Exam: [No focal neurologic deficit.] Alert and oriented 3. Psychiatric: Normal mood affect and normal mental status examination. - Labs CBC & Chem 7: 05/07/20 07:35 05/07/20 07:35 Labs: Abnormal Lab Results - Last 24 Hours (Table) 05/06/20 05/07/20 05/07/20 Range/Units 20:34 06:02 07:35 WBC 1.4 L* (3.8-10.6) k/uL Hgb 11.1 L (11.4-16.0) gm/dL Hct 33.6 L (34.0-46.0) % RDW 16.3 H (11.5-15.5) % Plt Count 92 L (150-450) k/uL Neutrophils # 0.8 L (1.3-7.7) k/uL Lymphocytes # 0.5 L (1.0-4.8) k/uL D-Dimer (<0.60) mg/L FEU BUN (7-17) mg/dL Glucose (74-99) mg/dL POC Glucose (mg/dL) 142 H 164 H (75-99) mg/dL Calcium (8.4-10.2) mg/dL Lactate Dehydrogenase (313-618) U/L C-Reactive Protein (<10.0) mg/L 05/07/20 05/07/20 05/07/20 Range/Units 07:35 07:35 11:58 WBC (3.8-10.6) k/uL Hgb (11.4-16.0) gm/dL Hct (34.0-46.0) % RDW (11.5-15.5) % Plt Count (150-450) k/uL Neutrophils # (1.3-7.7) k/uL Lymphocytes # (1.0-4.8) k/uL D-Dimer 0.92 H (<0.60) mg/L FEU BUN 19 H (7-17) mg/dL Glucose 157 H (74-99) mg/dL POC Glucose (mg/dL) 159 H (75-99) mg/dL Calcium 8.3 L (8.4-10.2) mg/dL Lactate Dehydrogenase 1369 H (313-618) U/L C-Reactive Protein 20.0 H (<10.0) mg/L 05/07/20 Range/Units 16:53 WBC (3.8-10.6) k/uL Hgb (11.4-16.0) gm/dL Hct (34.0-46.0) % RDW (11.5-15.5) % Plt Count (150-450) k/uL Neutrophils # (1.3-7.7) k/uL Lymphocytes # (1.0-4.8) k/uL D-Dimer (<0.60) mg/L FEU BUN (7-17) mg/dL Glucose (74-99) mg/dL POC Glucose (mg/dL) 177 H (75-99) mg/dL Calcium (8.4-10.2) mg/dL Lactate Dehydrogenase (313-618) U/L C-Reactive Protein (<10.0) mg/L Microbiology - Last 24 Hours (Table) 05/04/20 13:36 Blood Culture - Preliminary Blood No Growth after 72 hours 05/04/20 13:36 Blood Culture - Preliminary Blood No Growth after 72 hours Assessment and Plan Assessment: 1 acute Covid 19 related pneumonia, symptoms started on 04/28/2020, diagnosed to be positive on 04/29/2020 and currently presenting with worsening shortness of breath and hypoxic respiratory failure, after being on 4 L the patient progressed to high flow and currently she is on a BiPAP and she does developed diffuse bilateral pulmonary infiltrates. This is rapid progression with hypoxem ic respiratory failure. Day #3 of Remdesivir, she received tocilizumab and convalescent plasma. 2 acute hypoxic respiratory failure secondary to above 3 fever secondary to above 4 leukopenia, lymphopenia and thrombocytopenia secondary to above, white cell count remains low 5 mild elevation of inflammatory markers secondary to Covid 19 infection 6 obesity with a BMI of 47.0 7 diabetes mellitus type 2 8 hypertension 9 hyperlipidemia 10 hypothyroidism Recommendation: Continue present supportive care measures. Continue BiPAP. Continue the Covid 19 cocktail. Titrate FiO2 down. Patient received convalescent plasma, received actemra, and receiving presently day #4 of remdesivir Continue Decadron Lovenox and vitamin supplements. Prognosis remains guarded, we'll continue to follow Time with Patient: Less than 30
[2020-05-07 20:14] LABS: Glucose,Whole Blood 198 mg/dL (75-99)
[2020-05-07] MEDS: BACLOFEN 10 MG TAB PO SCH (20:41)
[2020-05-07] MEDS: INSULIN DETEMIR (LEVEMIR) 100 UNIT/ML SYR SQ SCH (20:42)
[2020-05-08] MEDS: methylPREDNISolone SOD SUCCI 125 MG/2 ML VIAL IV SCH ×5 (00:02→23:10)
--- NOTE | 2020-05-08 01:40 | PN ---
PROGRESS NOTE DATE OF SERVICE: 05/07/2020 REASON FOR FOLLOWUP: COVID-19 pneumonia. INTERVAL HISTORY: The patient is currently afebrile. The patient remains to be on the BiPAP. The patient is hemodynamically stable. No chest pain. No cough. No abdominal pain. Did have some diarrhea. PHYSICAL EXAMINATION: Blood pressure 115/55, pulse of 51, temperature 98. She is 93% on BiPAP. General description is a middle-aged female lying in bed in no distress. Respiratory system: Unlabored breathing, decreased intensity of breath sounds. No wheeze. Heart S1, S2. Regular rate and rhythm. Abdomen soft. No tenderness. LABS: Hemoglobin 11.1. White count 1.4, BUN of 19, creatinine 0.72. CRP is decreased. LDH is elevated. DIAGNOSTIC IMPRESSION AND PLAN: Patient with acute respiratory failure secondary to acute COVID-19 pneumonia in this patient currently on Remdesivir, Solu-Medrol, Lovenox and zinc to continue and continue with supportive care. No evidence of any secondary bacterial infection. Antibiotic should be discontinued. MMODL / IJN: [id number] /
[2020-05-08 06:04] LABS: Glucose,Whole Blood 200 mg/dL (75-99)
[2020-05-08] MEDS: INSULIN ASPART (NovoLOG) 100 UNIT/ML VIAL SQ SCH ×7 (06:48→20:29)
[2020-05-08] MEDS: LEVOTHYROXINE 75 MCG TAB PO SCH (06:48)
[2020-05-08] MEDS: metFORMIN 500 MG TAB PO SCH ×3 (06:48→16:27)
[2020-05-08] MEDS: GLIMEPIRIDE 4 MG TAB PO SCH (06:48)
[2020-05-08] MEDS: ASCORBIC ACID 500 MG TAB PO SCH (08:31)
[2020-05-08] MEDS: allopurinoL 100 MG TAB PO SCH (08:31)
[2020-05-08] MEDS: GABAPENTIN 300 MG CAP PO SCH ×4 (08:31→20:28)
[2020-05-08] MEDS: ENOXAPARIN 40 MG/0.4 ML SYRINGE SQ SCH (08:31)
[2020-05-08] MEDS: CHOLECALCIFEROL 25 MCG (1000 IU) TABLET PO SCH (08:31)
[2020-05-08] MEDS: FERROUS SULFATE 325 MG TAB PO SCH (08:32)
[2020-05-08] MEDS: lisinopriL 10 MG TAB PO SCH (08:32)
[2020-05-08] MEDS: ATORVASTATIN 40 MG TAB PO SCH (08:32)
[2020-05-08] MEDS: FAMOTIDINE 20 MG/2 ML VIAL IV SCH ×2 (08:32→20:28)
[2020-05-08] MEDS: ESCITALOPRAM 20 MG TAB PO SCH (08:32)
[2020-05-08] MEDS: SODIUM CHLORIDE 0.9% 1,000 ML IV SCH ×2 (08:32→16:27)
[2020-05-08] MEDS: ZINC SULFATE 220 MG CAP PO SCH (08:32)
[2020-05-08 12:19] LABS: Glucose,Whole Blood 181 mg/dL (75-99)
--- NOTE | 2020-05-08 16:00 | P.PN ---
Subjective Progress Note Date: 05/08/20 [id number] female admitted with acute hypoxic respiratory failure secondary to covid- 19 pneumonia, hypertension, diabetes mellitus, obesity and multiple other medical issues. Oxygen requirements worsened, requiring BiPAP. Chest x-ray reporting bilateral interstitial and patchy airspace opacities remain ,mild cardiomegaly. Denies chest pain, palpitations, reports chest soreness from nonproductive cough. Received a dose of Actemra, maintained on Remdesevir, IV steroids , antibiotics and multivitamin supplements. Afebrile, LDH and C- reactive protein trending down. 05/07/2020 Maintained on Remdesevir/covid regimine. Continues to require BiPAP 100% to maintain O2 sats in the high 80s to 90s. Complains of anxiety regarding mask. Deep breaths trigger cough. Afebrile. Labs pending. Denies chest pain, palpitations. 05/08/2020 sitting up at side of bed, continues to require 100% BiPAP. Ma intained on Covid regimen including Remdesevir. T-max 99.1. Occasional nonproductive cough. Denies chest pain, Objective - Vital Signs Vital signs: Vital Signs Temp 99.1 F 05/08/20 08:00 Pulse 65 05/08/20 12:44 Resp 20 05/08/20 12:44 BP 118/73 05/08/20 12:44 Pulse Ox 93 L 05/08/20 12:44 Intake & Output 05/07/20 05/08/20 05/08/20 18:59 06:59 18:59 Intake Total 1230 595 Balance 1230 595 Weight 139.5 kg Intake: Intake, IV Titration 1050 Amount Remdesivir 100 mg In 250 Sodium Chloride 0.9% 250 ml @ 250 mls/hr IVPB DAILY@1600 [facility] Rx#: [id number] Sodium Chloride 0.9% 1, 800 000 ml @ 100 mls/hr IV . Q10H [facility] Rx#:[id number] Oral 180 595 Other: Voiding Method Toilet Toilet Toilet # Voids 1 1 # Bowel Movements 1 - Exam PHYSICAL EXAM: VITAL SIGNS: [As above] GENERAL: Alert and oriented 3, Sitting up at side of bed wearing BiPAP, respiratory effort increased HEENT: Conjunctivae normal. eyes normal. NECK: Supple, No JVD. CARDIOVASCULAR: S1, S2 regular.No murmur RESPIRATION: Breath sounds essentially clear, diminished in the bases. No rhonchi, bibasilar crackles ABDOMEN: Soft, nontender . Nondistended. No guarding. no masses palpable. Positive Bowel sounds. LEGS: No edema. no swelling, no cyanosis, no clubbing. NERVOUS SYSTEM: Cranial N 2-12 grossly normal. Moves all 4 limbs. Diffuse weakness, No focal deficits. Strength and sensation grossly intact.. Skin: Warm and dry, no rash - Labs CBC & Chem 7: 05/07/20 07:35 05/07/20 07:35 Labs: Abnormal Lab Results - Last 24 Hours (Table) 05/07/20 05/07/20 05/07/20 Range/Units 07:35 16:53 20:12 Plt Count 92 L (150-450) k/uL POC Glucose (mg/dL) 177 H 198 H (75-99) mg/dL 05/08/20 05/08/20 Range/Units 06:02 12:18 Plt Count (150-450) k/uL POC Glucose (mg/dL) 200 H 181 H (75-99) mg/dL Microbiology - Last 24 Hours (Table) 05/04/20 13:36 Blood Culture - Preliminary Blood No Growth after 72 hours 05/04/20 13:36 Blood Culture - Preliminary Blood No Growth after 72 hours Assessment and Plan Assessment: Acute Covid-19 pneumonia, status post convalescent plasma Acute hypoxic respiratory failure secondary to the above,BiPAP dependent. Acute anxiety secondary to the above and BiPAP mask leukopenia, lymphopenia and thrombocytopenia secondary to above Diabetes mellitus type 2 Hypertension Hyperlipidemia Hypothyroidism Morbid obesity, BMI 47 Plan: Continue on current medication regimen, monitoring and symptomatic treatment.Continue Covid regimen including Remdesevir, Lovenox. Follow closely with pulmonary. Prognosis guarded given multiple complex medical issues. The impression and plan of care has been dictated as directed. : I performed a history and examination of this patient, discussed the same with the dictator. I agree with the dictator's note ,documented as a scribe. Any additional findings or plans will be noted.
[2020-05-08] MEDS: REMDESIVIR 100 MG in SODIUM CHLORIDE 0.9% 250 ML IVPB SCH (16:26)
[2020-05-08 16:45] LABS: Glucose,Whole Blood 123 mg/dL (75-99)
--- NOTE | 2020-05-08 19:15 | P.PN ---
Subjective Progress Note Date: 05/08/20 Principal diagnosis: Acute hypoxic respiratory failure secondary to acute covid 19 pneumonia 79-year-old female patient, morbidly obese with a BMI of 47, was hospitalized for COVID 19 related pneumonia. The patient currently is hypoxic on 3 L of oxygen by nasal cannula. She has comorbidities including obesity with a BMI of 47, hypertension, diabetes mellitus and gout. She also has hyperlipidemia and hypothyroidism. The patient started getting symptoms approximately a week ago, on 04/28/2020 and the patient was diagnosed having Covid 19 infection for a primary care physician's office on 04/29.. She continued to have episodes of fever and subsequently she became progressively more short of breath necessitating emergency department visitation today and ultimately she was hospitalized. Her chest x-ray showing bilateral pulmonary infiltrates peripheral distribution more so on the right compared to the left. The patient was started on steroids.. She is slightly nauseated. She also has loss of taste and smell LDH level is currently at 802 with a CRP of 55 and she had a lactic acid level of 2.1 at the time of admission. There d-dimer is still pending for now. Her white cell count is at 1.4 and the patient is lymphopenic with a lymphocyte count of 0.6 and there is also a drop in her platelet count down to 80 and these are all manifestations of COVID 19 infection. On today's evaluation of 04/27/2020, the patient's oxygenation has gotten worse. I saw her in the emergency department yesterday and she was on 4 L. She progressively required higher oxygen flow and she went up to a high flow oxygen through the nasal cannula airvo which she feels a currently she is on a BiPAP at a pressure of 10/5 with an FiO2 of 100%. She is able to generate a tidal volume around 450-500. Respiratory rate is in the mid 30s low 40s. She feels well. She is in mild degree of respiratory distress. She is still able to converse and talk to her BiPAP mask. Her current pulse ox is 94%. 60 showing diffuse breath and pulmonary infiltrates consistent with Covid 19 related pneumonia. Her white cell count is still down at 1.2. Platelet count is at 70 now which is low. D-dimer is at 0.65, her LDH level is at 835 with a CRP of 56. She is on Decadron. I'm going to switch her to Solu-Medrol. She is currently taking REM should be considered for convalescent plasma and addition to Tocilizumab The patient is seen today 05/06/2020 in follow-up on the regular medical floor. She is currently sitting up in bed. Awake and alert in no acute distress. Cu rrently on BiPAP 10/5 and 100% FiO2. Current saturation 88%. Chest x-ray reveals mild, medically. Residual bilateral airspace disease. Improving compared to previous. This is day #3 of Remdesivir. She received convalescent plasma 1, tocilizumab. D-dimer 0.84. C-reactive protein 2.8. LDH 459. She remains on Decadron, IV Solu-Medrol, vitamin supplements. Patient was reevaluated today on 05/07/2020, presently on 100% FiO2, BiPAP with IPAP of 10 and EPAP of 5, she is on day #4 of remdesivir . Patient also received convalescent plasma and actemra area and her overall status remains marginal. Patient does not seem to be in distress although her O2 saturation has been running anywhere between 85-93% on BiPAP with 100% FiO2 chest x-ray continues to show bilateral infiltrates with significant consolidation in the left lower lobe. Patient was reevaluated today on 05/08/2020, patient is on BiPAP, with FiO2 of 90%, IPAP of 10 and EPAP of 5, O2 saturation is in the low 90s. Clinically however the patient is doing great, relatively asymptomatic, and she remains on remdesivir, she is presently on day #5. Patient did also receive convalescent plasma and actemra. Continues to have leukopenia with WBC count of 1.4, hemoglobin is 11.1. D-dimer is 0.92. Left lites are normal renal profile is normal, LDH and C-reactive protein are on the rise. LDH is 1369 and C-reactive protein is 20. Pro-calcitonin level is 0.05 Objective - Vital Signs Vital signs: Vital Signs Temp 98.7 F 05/08/20 16:20 Pulse 68 05/08/20 16:20 Resp 22 05/08/20 16:20 BP 129/69 05/08/20 16:20 Pulse Ox 93 L 05/08/20 16:20 Intake & Output 05/08/20 05/08/20 05/09/20 06:59 18:59 06:59 Intake Total 595 300 Balance 595 300 Weight 139.5 kg Intake: Intake, IV Titration 300 Amount Remdesivir 100 mg In 250 Sodium Chloride 0.9% 250 ml @ 250 mls/hr IVPB DAILY@1600 [facility] Rx#: [id number] cefTRIAXone 2 gm In 50 Sodium Chloride 0.9% 50 ml @ 100 mls/hr IVPB Q24HR@2000 [facility] Rx#: [id number] Oral 595 Other: Voiding Method Toilet Toilet # Voids 1 3 - Exam Physical Exam: Revealed a 59-year-old female on BiPAP, FiO2 is 90%, patient is on 11/12, not in distress. O2 saturation is in the 94% range Head: Is atraumatic normocephalic. HEENT:[Neck is supple.] [No neck masses.] [No thyromegaly.] [No JVD.] Chest: [Symmetrical chest expansion, crackles at the bases bilaterally. Cardiac Exam: [Normal S1 and S2, no S3 gallop, no murmur.] Abdomen: [Soft, nontender, no megaly, no rebound, no guarding, normal bowel sounds.] Extremities: [No clubbing, no edema, no cyanosis.] Neurological Exam: [No focal neurologic deficit.] Alert and oriented 3. Psychiatric: Normal mood affect and normal mental status examination. - Labs CBC & Chem 7: 05/07/20 07:35 05/07/20 07:35 Labs: Abnormal Lab Results - Last 24 Hours (Table) 05/07/20 05/08/20 05/08/20 Range/Units 20:12 06:02 12:18 POC Glucose (mg/dL) 198 H 200 H 181 H (75-99) mg/dL 05/08/20 Range/Units 16:24 POC Glucose (mg/dL) 123 H (75-99) mg/dL Microbiology - Last 24 Hours (Table) 05/04/20 13:36 Blood Culture - Preliminary Blood No Growth after 96 hours 05/04/20 13:36 Blood Culture - Preliminary Blood No Growth after 96 hours Assessment and Plan Assessment: 1 acute Covid 19 related pneumonia, symptoms started on 04/28/2020, diagnosed to be positive on 04/29/2020 and currently presenting with worsening shortness of breath and hypoxic respiratory failure, after being on 4 L the patient progressed to high flow and currently she is on a BiPAP and she does developed diffuse bilateral pulmonary infiltrates. This is rapid progression with hypoxemic respiratory failure. Day #3 of Remdesivir, she received tocilizumab and convalescent plasma. 2 acute hypoxic respiratory failure secondary to above 3 fever secondary to above 4 leukopenia, lymphopenia and thrombocytopenia secondary to above, white cell count remains low 5 mild elevation of inflammatory markers secondary to Covid 19 infection 6 obesity with a BMI of 47.0 7 diabetes mellitus type 2 8 hypertension 9 hyperlipidemia 10 hypothyroidism Recommendation: Continue present supportive care measures. Continue BiPAP. Titrate FiO2 down as tolerated and maintain O2 saturation above 90%. Continue the Covid 19 cocktail. Patient received convalescent plasma, received actemra, and receiving presently day #4 of remdesivir Continue Decadron Lovenox and vitamin supplements. Prognosis remains guarded, we'll continue to follow Time with Patient: Less than 30
[2020-05-08 19:52] LABS: Glucose,Whole Blood 174 mg/dL (75-99)
[2020-05-08] MEDS: INSULIN DETEMIR (LEVEMIR) 100 UNIT/ML SYR SQ SCH (20:26)
[2020-05-08] MEDS: BACLOFEN 10 MG TAB PO SCH (20:29)
--- NOTE | 2020-05-08 23:14 | PN ---
PROGRESS NOTE DATE OF SERVICE: 05/08/2020 REASON FOR FOLLOWUP: COVID-19 pneumonia. INTERVAL HISTORY: Patient is currently afebrile. The patient is on BIPAP. The patient denies having any chest pain. Did have a cough. No sputum production. No nausea. No vomiting. No abdominal pain. No diarrhea. EXAMINATION: Blood pressure 120/66, pulse of 78, temperature of 97.8. She is 92% on BIPAP. General description is a middle-aged female lying in bed in no distress. Respiratory system: Unlabored breathing, decreased intensity in breath sounds. No wheeze. Heart S1, S2. Regular rate and rhythm. Abdomen soft, no tenderness. LABS: No new labs have been obtained today. Procalcitonin 0.05. DIAGNOSTIC IMPRESSION AND PLAN: Patient with acute COVID-19 pneumonia and acute respiratory failure in this patient currently covered with Lovenox, Solu-Medrol, zinc, ascorbic acid and completed a 5-day course of Remdesivir to continue. Clinical suspicious low for a secondary bacteremia, antibiotic discouraged and this will be discontinued. MMODL / IJN: [id number] / MTDD
[2020-05-09] MEDS: INSULIN ASPART (NovoLOG) 100 UNIT/ML VIAL SQ SCH ×7 (05:36→20:30)
[2020-05-09 06:06] LABS: Glucose,Whole Blood 180 mg/dL (75-99)
[2020-05-09] MEDS: LEVOTHYROXINE 75 MCG TAB PO SCH (06:33)
[2020-05-09] MEDS: metFORMIN 500 MG TAB PO SCH ×3 (06:33→18:22)
[2020-05-09] MEDS: methylPREDNISolone SOD SUCCI 125 MG/2 ML VIAL IV SCH ×4 (06:34→22:28)
[2020-05-09] MEDS: GLIMEPIRIDE 4 MG TAB PO SCH (06:35)
--- NOTE | 2020-05-09 09:37 | XR ---
EXAMINATION TYPE: XR chest 1V portable DATE OF EXAM: 05/09/2020 COMPARISON: 05/06/2020 INDICATION: COVID pneumonia TECHNIQUE: Single frontal view of the chest is obtained. FINDINGS: The heart size is normal. The pulmonary vasculature is normal. Patchy bilateral lung infiltrates are present. Findings are worsening from comparison. IMPRESSION: 1. Worsening bilateral patchy infiltrates can be compatible with atypical pneumonia.
[2020-05-09] MEDS: ASCORBIC ACID 500 MG TAB PO SCH (09:58)
[2020-05-09] MEDS: ENOXAPARIN 40 MG/0.4 ML SYRINGE SQ SCH (09:58)
[2020-05-09] MEDS: SODIUM CHLORIDE 0.9% 1,000 ML IV SCH ×3 (09:58→20:40)
[2020-05-09] MEDS: allopurinoL 100 MG TAB PO SCH (09:59)
[2020-05-09] MEDS: CHOLECALCIFEROL 25 MCG (1000 IU) TABLET PO SCH (09:59)
[2020-05-09] MEDS: FERROUS SULFATE 325 MG TAB PO SCH (09:59)
[2020-05-09] MEDS: ZINC SULFATE 220 MG CAP PO SCH (09:59)
[2020-05-09] MEDS: GABAPENTIN 300 MG CAP PO SCH ×4 (09:59→20:39)
[2020-05-09] MEDS: ESCITALOPRAM 20 MG TAB PO SCH (09:59)
[2020-05-09] MEDS: FAMOTIDINE 20 MG/2 ML VIAL IV SCH ×2 (09:59→20:39)
[2020-05-09] MEDS: lisinopriL 10 MG TAB PO SCH (09:59)
[2020-05-09] MEDS: ATORVASTATIN 40 MG TAB PO SCH (09:59)
--- NOTE | 2020-05-09 10:25 | P.PN ---
Subjective Progress Note Date: 05/09/20 [id number] female admitted with acute hypoxic respiratory failure secondary to covid- 19 pneumonia, hypertension, diabetes mellitus, obesity and multiple other medical issues. Oxygen requirements worsened, requiring BiPAP. Chest x-ray reporting bilateral interstitial and patchy airspace opacities remain ,mild cardiomegaly. Denies chest pain, palpitations, reports chest soreness from nonproductive cough. Received a dose of Actemra, maintained on Remdesevir, IV steroids , antibiotics and multivitamin supplements. Afebrile, LDH and C- reactive protein trending down. 05/07/2020 Maintained on Remdesevir/covid regimine. Continues to require BiPAP 100% to maintain O2 sats in the high 80s to 90s. Complains of anxiety regarding mask. Deep breaths trigger cough. Afebrile. Labs pending. Denies chest pain, palpitations. 05/08/2020 sitting up at side of bed, continues to require 100% BiPAP. Ma intained on Covid regimen including Remdesevir. T-max 99.1. Occasional nonproductive cough. Denies chest pain, 05/09/20 unable to tolerate BiPAP decreased to 90% with O2 sats decreased to 84%, currently back up on 100% BiPAP, maintaining O2 sats in the 90s on 100s. T-max 99.1, labs pending. Anxiety controlled. Maintained on Covid regimen, completed 5 doses of Remdesevir. Labs pending. Objective - Vital Signs Vital signs: Vital Signs Temp 97.8 F 05/08/20 20:00 Pulse 57 L 05/09/20 04:00 Resp 22 05/09/20 04:00 BP 141/67 05/09/20 04:00 Pulse Ox 84 L 05/09/20 04:00 Intake & Output 05/08/20 05/09/20 05/09/20 18:59 06:59 18:59 Intake Total 300 Balance 300 Weight 142.5 kg Intake: Intake, IV Titration 300 Amount Remdesivir 100 mg In 250 Sodium Chloride 0.9% 250 ml @ 250 mls/hr IVPB DAILY@1600 [facility] Rx#: [id number] cefTRIAXone 2 gm In 50 Sodium Chloride 0.9% 50 ml @ 100 mls/hr IVPB Q24HR@2000 [facility] Rx#: [id number] Other: Voiding Method Toilet Toilet # Voids 3 1 - Exam PHYSICAL EXAM: VITAL SIGNS: [As above] GENERAL: Alert and oriented 3, Sitting up at side of bed wearing BiPAP, respiratory effort increased HEENT: Conjunctivae normal. eyes normal. CARDIOVASCULAR: S1, S2 regular.No murmur RESPIRATION: Breath sounds essentially clear, diminished in the bases. ABDOMEN: Soft, nontender . Nondistended. No guarding, no masses palpable. Positive Bowel sounds. LEGS: No edema. no swelling, no cyanosis, no clubbing. NERVOUS SYSTEM: Cranial N 2-12 grossly normal. Moves all 4 limbs. Diffuse weakness, No focal deficits. Strength and sensation grossly intact. Skin: Warm and dry, no rash - Labs CBC & Chem 7: 05/07/20 07:35 05/07/20 07:35 Labs: Abnormal Lab Results - Last 24 Hours (Table) 05/08/20 05/08/20 05/08/20 Range/Units 12:18 16:24 19:51 POC Glucose (mg/dL) 181 H 123 H 174 H (75-99) mg/dL 05/09/20 Range/Units 06:04 POC Glucose (mg/dL) 180 H (75-99) mg/dL Microbiology - Last 24 Hours (Table) 05/04/20 13:36 Blood Culture - Preliminary Blood No Growth after 96 hours 05/04/20 13:36 Blood Culture - Preliminary Blood No Growth after 96 hours Assessment and Plan Assessment: Acute Covid-19 pneumonia, status post convalescent plasma, received tocilizumab, completed Remdesevir Acute hypoxic respiratory failure secondary to the above,BiPAP dependent. Acute anxiety secondary to the above and BiPAP mask leukopenia, lymphopenia and thrombocytopenia secondary to above Diabetes mellitus type 2 Hypertension Hyperlipidemia Hypothyroidism Morbid obesity, BMI 47 Plan: Continue on current medication regimen, monitoring and symptomatic treatment.attempting to wean FiO2 as per parameters established per pulmonary, currently not tolerating .Continue Covid regimen, Lovenox. Labs pending. Follow closely with pulmonary. Prognosis guarded given multiple complex medical issues. The impression and plan of care has been dictated as directed. : I performed a history and examination of this patient, discussed the same with the dictator. I agree with the dictator's note ,documented as a scribe. Any additional findings or plans will be noted.
[2020-05-09 11:43] LABS: Anisocytosis Slight; Basophils % (A) 0 %; Eosinophils % (A) 0 %; HCT 34.7 % (34.0-46.0); HGB 11.7 gm/dL (11.4-16.0); Hypochromasia Slight; Lymphocytes # (A) 0.4 k/uL (1.0-4.8); Lymphocytes % (A) 19 %; MCH 29.8 pg (25.0-35.0); MCHC 33.6 g/dL (31.0-37.0); MCV 88.7 fL (80.0-100.0); Mean Platelet Volume 8.4; Monocytes # (A) 0.2 k/uL (0-1.0); Monocytes % (A) 8 %; Neutrophils # (A) 1.4 k/uL (1.3-7.7); Neutrophils % (A) 70 %; Platelet Count 113 k/uL (150-450); RBC 3.91 m/uL (3.80-5.40); RDW 16.1 % (11.5-15.5)
[2020-05-09 12:06] LABS: Glucose,Whole Blood 216 mg/dL (75-99)
[2020-05-09 12:55] LABS: African American GFR (CKD) >90 (>60 ml/min/1.73 sqM); Anion Gap 5 mmol/L; Blood Urea Nitrogen 22 mg/dL (7-17); Calcium 8.4 mg/dL (8.4-10.2); Carbon Dioxide 27 mmol/L (22-30); Chloride 106 mmol/L (98-107); Glucose 191 mg/dL (74-99); Non-African American GFR(CKD) >90 (>60 ml/min/1.73 sqM); Potassium 4.5 mmol/L (3.5-5.1); Sodium 138 mmol/L (137-145)
--- NOTE | 2020-05-09 16:45 | P.PN ---
Subjective Progress Note Date: 05/09/20 Principal diagnosis: Acute hypoxic respiratory failure secondary to acute covid 19 pneumonia 79-year-old female patient, morbidly obese with a BMI of 47, was hospitalized for COVID 19 related pneumonia. The patient currently is hypoxic on 3 L of oxygen by nasal cannula. She has comorbidities including obesity with a BMI of 47, hypertension, diabetes mellitus and gout. She also has hyperlipidemia and hypothyroidism. The patient started getting symptoms approximately a week ago, on 04/28/2020 and the patient was diagnosed having Covid 19 infection for a primary care physician's office on 04/29.. She continued to have episodes of fever and subsequently she became progressively more short of breath necessitating emergency department visitation today and ultimately she was hospitalized. Her chest x-ray showing bilateral pulmonary infiltrates peripheral distribution more so on the right compared to the left. The patient was started on steroids.. She is slightly nauseated. She also has loss of taste and smell LDH level is currently at 802 with a CRP of 55 and she had a lactic acid level of 2.1 at the time of admission. There d-dimer is still pending for now. Her white cell count is at 1.4 and the patient is lymphopenic with a lymphocyte count of 0.6 and there is also a drop in her platelet count down to 80 and these are all manifestations of COVID 19 infection. On today's evaluation of 04/27/2020, the patient's oxygenation has gotten worse. I saw her in the emergency department yesterday and she was on 4 L. She progressively required higher oxygen flow and she went up to a high flow oxygen through the nasal cannula airvo which she feels a currently she is on a BiPAP at a pressure of 10/5 with an FiO2 of 100%. She is able to generate a tidal volume around 450-500. Respiratory rate is in the mid 30s low 40s. She feels well. She is in mild degree of respiratory distress. She is still able to converse and talk to her BiPAP mask. Her current pulse ox is 94%. 60 showing diffuse breath and pulmonary infiltrates consistent with Covid 19 related pneumonia. Her white cell count is still down at 1.2. Platelet count is at 70 now which is low. D-dimer is at 0.65, her LDH level is at 835 with a CRP of 56. She is on Decadron. I'm going to switch her to Solu-Medrol. She is currently taking REM should be considered for convalescent plasma and addition to Tocilizumab The patient is seen today 05/06/2020 in follow-up on the regular medical floor. She is currently sitting up in bed. Awake and alert in no acute distress. Cu rrently on BiPAP 10/5 and 100% FiO2. Current saturation 88%. Chest x-ray reveals mild, medically. Residual bilateral airspace disease. Improving compared to previous. This is day #3 of Remdesivir. She received convalescent plasma 1, tocilizumab. D-dimer 0.84. C-reactive protein 2.8. LDH 459. She remains on Decadron, IV Solu-Medrol, vitamin supplements. Patient was reevaluated today on 05/07/2020, presently on 100% FiO2, BiPAP with IPAP of 10 and EPAP of 5, she is on day #4 of remdesivir . Patient also received convalescent plasma and actemra area and her overall status remains marginal. Patient does not seem to be in distress although her O2 saturation has been running anywhere between 85-93% on BiPAP with 100% FiO2 chest x-ray continues to show bilateral infiltrates with significant consolidation in the left lower lobe. Patient was reevaluated today on 05/08/2020, patient is on BiPAP, with FiO2 of 90%, IPAP of 10 and EPAP of 5, O2 saturation is in the low 90s. Clinically however the patient is doing great, relatively asymptomatic, and she remains on remdesivir, she is presently on day #5. Patient did also receive convalescent plasma and actemra. Continues to have leukopenia with WBC count of 1.4, hemoglobin is 11.1. D-dimer is 0.92. Left lites are normal renal profile is normal, LDH and C-reactive protein are on the rise. LDH is 1369 and C-reactive protein is 20. Pro-calcitonin level is 0.05 Patient was reevaluated today on 05/09/2020, remains on BiPAP, she is on 100%, O2 sats is 94%. Surprisingly, the patient seems to be doing well in spite of her significant O2 requirement and BiPAP. Patient received REM, she also received convalescent plasma and ACTEMRA. And so far does not seem to be making that significant turnaround and significant clinical improvement. CBC and basic metabolic profile are normal except for WBC count is 2.0 today. Objective - Vital Signs Vital signs: Vital Signs Temp 97.8 F 05/09/20 08:00 Pulse 68 05/09/20 12:00 Resp 22 05/09/20 04:00 BP 136/70 05/09/20 08:00 Pulse Ox 94 L 05/09/20 12:00 Intake & Output 05/08/20 05/09/20 05/09/20 18:59 06:59 18:59 Intake Total 300 280 Balance 300 280 Weight 142.5 kg 142.5 kg Intake: Intake, IV Titration 300 Amount Remdesivir 100 mg In 250 Sodium Chloride 0.9% 250 ml @ 250 mls/hr IVPB DAILY@1600 [facility] Rx#: [id number] cefTRIAXone 2 gm In 50 Sodium Chloride 0.9% 50 ml @ 100 mls/hr IVPB Q24HR@2000 [facility] Rx#: [id number] Oral 280 Other: Voiding Method Toilet Toilet # Voids 3 1 - Exam Physical Exam: Revealed a 59-year-old female on BiPAP, 100% FiO2, 11/12. Head: Is atraumatic normocephalic. HEENT:[Neck is supple.] [No neck masses.] [No thyromegaly.] [No JVD.] Chest: [Symmetrical chest expansion, crackles at the bases bilaterally. Cardiac Exam: [Normal S1 and S2, no S3 gallop, no murmur.] Abdomen: [Soft, nontender, no megaly, no rebound, no guarding, normal bowel sounds.] Extremities: [No clubbing, no edema, no cyanosis.] Neurological Exam: [No focal neurologic deficit.] Alert and oriented 3. Psychiatric: Normal mood affect and normal mental status examination. - Labs CBC & Chem 7: 05/09/20 10:44 05/09/20 10:44 Labs: Abnormal Lab Results - Last 24 Hours (Table) 05/08/20 05/08/20 05/09/20 Range/Units 16:24 19:51 06:04 WBC (3.8-10.6) k/uL RDW (11.5-15.5) % Plt Count (150-450) k/uL Lymphocytes # (1.0-4.8) k/uL BUN (7-17) mg/dL Glucose (74-99) mg/dL POC Glucose (mg/dL) 123 H 174 H 180 H (75-99) mg/dL 05/09/20 05/09/20 05/09/20 Range/Units 10:44 10:44 12:05 WBC 2.0 L (3.8-10.6) k/uL RDW 16.1 H (11.5-15.5) % Plt Count 113 L (150-450) k/uL Lymphocytes # 0.4 L (1.0-4.8) k/uL BUN 22 H (7-17) mg/dL Glucose 191 H (74-99) mg/dL POC Glucose (mg/dL) 216 H (75-99) mg/dL Microbiology - Last 24 Hours (Table) 05/04/20 13:36 Blood Culture - Preliminary Blood No Growth after 120 hours 05/04/20 13:36 Blood Culture - Preliminary Blood No Growth after 120 hours Assessment and Plan Assessment: 1 acute Covid 19 related pneumonia, symptoms started on 04/28/2020, diagnosed to be positive on 04/29/2020 and currently presenting with worsening shortness of breath and hypoxic respiratory failure, after being on 4 L the patient progressed to high flow and currently she is on a BiPAP and she does developed diffuse bilateral pulmonary infiltrates. This is rapid progression with hypoxemic respiratory failure. Day #3 of Remdesivir, she received tocilizumab and convalescent plasma. 2 acute hypoxic respiratory failure secondary to above 3 fever secondary to above 4 leukopenia, lymphopenia and thrombocytopenia secondary to above, white cell c ount remains low 5 mild elevation of inflammatory markers secondary to Covid 19 infection 6 obesity with a BMI of 47.0 7 diabetes mellitus type 2 8 hypertension 9 hyperlipidemia 10 hypothyroidism Recommendation: Continue present supportive care measures. Continue BiPAP. Titrate FiO2 down as tolerated and maintain O2 saturation above 90%. Continue the Covid 19 cocktail. Patient received convalescent plasma, received actemra, finished full course of REM Continue Decadron Lovenox and vitamin supplements. Prognosis remains guarded, we'll continue to follow Time with Patient: Less than 30
[2020-05-09 17:14] LABS: Glucose,Whole Blood 116 mg/dL (75-99)
[2020-05-09 19:48] LABS: Glucose,Whole Blood 119 mg/dL (75-99)
[2020-05-09] MEDS: BACLOFEN 10 MG TAB PO SCH (20:39)
[2020-05-09] MEDS: INSULIN DETEMIR (LEVEMIR) 100 UNIT/ML SYR SQ SCH (20:39)
--- NOTE | 2020-05-09 23:16 | PN ---
PROGRESS NOTE DATE OF SERVICE: 05/09/2020 REASON FOR FOLLOWUP: COVID-19 pneumonia. INTERVAL HISTORY: The patient is currently afebrile. The patient remains to be BiPAP dependent. However, the patient is breathing more comfortably. Patient denies having any chest pain. Occasional cough. No sputum production. No abdominal pain. No diarrhea. PHYSICAL EXAMINATION: Blood pressure 137/70 with a pulse of 70, temperature 97.1. She is 96% on BiPAP. General description is a middle-aged female up in the chair in no distress. Respiratory system: Unlabored breathing, decreased intensity in breath sounds. No wheeze. Heart S1, S2. Regular rate. ABDOMEN: Soft, no tenderness. LABS: Hemoglobin 11.7, white count 2.0, BUN of 2, creatinine 0.74. Blood culture has been negative. DIAGNOSTIC IMPRESSION AND PLAN: Patient with acute respiratory failure secondary to Covid 19 infection in this patient currently on Lovenox, ascorbic acid, zinc, along with respiratory support and monitor clinical course closely. Continue supportive care. MMODL / IJN: [id number] /
[2020-05-10] MEDS: methylPREDNISolone SOD SUCCI 125 MG/2 ML VIAL IV SCH ×4 (06:37→22:13)
[2020-05-10] MEDS: metFORMIN 500 MG TAB PO SCH ×2 (06:37→13:43)
[2020-05-10] MEDS: LEVOTHYROXINE 75 MCG TAB PO SCH (06:37)
[2020-05-10] MEDS: GLIMEPIRIDE 4 MG TAB PO SCH (06:37)
[2020-05-10 07:10] LABS: Glucose,Whole Blood 167 mg/dL (75-99)
[2020-05-10] MEDS: ALBUTEROL HFA INHALER INHALATION PRN (07:10)
[2020-05-10] MEDS: GABAPENTIN 300 MG CAP PO SCH ×4 (09:37→20:50)
[2020-05-10] MEDS: allopurinoL 100 MG TAB PO SCH (09:37)
[2020-05-10] MEDS: lisinopriL 10 MG TAB PO SCH (09:37)
[2020-05-10] MEDS: CHOLECALCIFEROL 25 MCG (1000 IU) TABLET PO SCH (09:37)
[2020-05-10] MEDS: FAMOTIDINE 20 MG/2 ML VIAL IV SCH ×2 (09:37→20:50)
[2020-05-10] MEDS: INSULIN ASPART (NovoLOG) 100 UNIT/ML VIAL SQ SCH ×7 (09:37→21:04)
[2020-05-10] MEDS: ENOXAPARIN 40 MG/0.4 ML SYRINGE SQ SCH (09:37)
[2020-05-10] MEDS: ASCORBIC ACID 500 MG TAB PO SCH (09:38)
[2020-05-10] MEDS: FERROUS SULFATE 325 MG TAB PO SCH (09:38)
[2020-05-10] MEDS: ATORVASTATIN 40 MG TAB PO SCH (09:38)
[2020-05-10] MEDS: ZINC SULFATE 220 MG CAP PO SCH (09:38)
[2020-05-10] MEDS: SODIUM CHLORIDE 0.9% 1,000 ML IV SCH ×2 (09:38→20:49)
[2020-05-10] MEDS: ESCITALOPRAM 20 MG TAB PO SCH (09:38)
[2020-05-10 12:23] LABS: Glucose,Whole Blood 117 mg/dL (75-99)
--- NOTE | 2020-05-10 13:26 | P.PN ---
Subjective Progress Note Date: 05/10/20 [id number] female admitted with acute hypoxic respiratory failure secondary to covid- 19 pneumonia, hypertension, diabetes mellitus, obesity and multiple other medical issues. Oxygen requirements worsened, requiring BiPAP. Chest x-ray reporting bilateral interstitial and patchy airspace opacities remain ,mild cardiomegaly. Denies chest pain, palpitations, reports chest soreness from nonproductive cough. Received a dose of Actemra, maintained on Remdesevir, IV steroids , antibiotics and multivitamin supplements. Afebrile, LDH and C- reactive protein trending down. 05/07/2020 Maintained on Remdesevir/covid regimine. Continues to require BiPAP 100% to maintain O2 sats in the high 80s to 90s. Complains of anxiety regarding mask. Deep breaths trigger cough. Afebrile. Labs pending. Denies chest pain, palpitations. 05/08/2020 sitting up at side of bed, continues to require 100% BiPAP. Ma intained on Covid regimen including Remdesevir. T-max 99.1. Occasional nonproductive cough. Denies chest pain, 05/09/20 unable to tolerate BiPAP decreased to 90% with O2 sats decreased to 84%, currently back up on 100% BiPAP, maintaining O2 sats in the 90s on 100s. T-max 99.1, labs pending. Anxiety controlled. Maintained on Covid regimen, completed 5 doses of Remdesevir. Labs pending. 05/10/2020 maintaining O2 sats in the low 90s on 95% BiPAP. Continues on IV steroids, vitamin C, vitamin D, zinc. Afebrile. Reports less coughing. Denies chest pain, palpitations. Objective - Vital Signs Vital signs: Vital Signs Temp 97.0 F L 05/10/20 08:00 Pulse 76 05/10/20 08:00 Resp 24 05/10/20 04:00 BP 129/70 05/10/20 08:00 Pulse Ox 92 L 05/10/20 08:00 Intake & Output 05/09/20 05/10/20 05/10/20 18:59 06:59 18:59 Intake Total 280 Output Total 250 300 Balance 30 -300 Weight 142.5 kg 142 kg Intake: Oral 280 Output: Urine 250 300 Other: Voiding Method Bedside Commode # Voids 3 1 # Bowel Movements 1 - Exam PHYSICAL EXAM: VITAL SIGNS: [As above] GENERAL: Alert and oriented 3, Sitting up at side of bed wearing BiPAP HEENT: Conjunctivae normal. eyes normal. CARDIOVASCULAR: S1, S2 regular.No murmur RESPIRATION: Breath sounds essentially clear, diminished in the bases. ABDOMEN: Soft, nontender . Nondistended. No guarding, no masses palpable. Positive Bowel sounds. LEGS: No edema. no swelling, no cyanosis, no clubbing. NERVOUS SYSTEM: Cranial N 2-12 grossly normal. Moves all 4 limbs. Diffuse weakness, No focal deficits. Skin: Warm and dry, no rash - Labs CBC & Chem 7: 05/09/20 10:44 05/09/20 10:44 Labs: Abnormal Lab Results - Last 24 Hours (Table) 05/09/20 05/09/20 05/10/20 Range/Units 17:13 19:46 07:08 POC Glucose (mg/dL) 116 H 119 H 167 H (75-99) mg/dL 05/10/20 Range/Units 12:06 POC Glucose (mg/dL) 117 H (75-99) mg/dL Microbiology - Last 24 Hours (Table) 05/04/20 13:36 Blood Culture - Preliminary Blood No Growth after 120 hours 05/04/20 13:36 Blood Culture - Preliminary Blood No Growth after 120 hours Assessment and Plan Assessment: Acute Covid-19 pneumonia, status post convalescent plasma, received tocilizumab, completed Remdesevir Acute hypoxic respiratory failure secondary to the above,BiPAP dependent. Acute anxiety secondary to the above and BiPAP mask leukopenia, lymphopenia and thrombocytopenia secondary to above Diabetes mellitus type 2 Hypertension Hyperlipidemia Hypothyroidism Morbid obesity, BMI 47 Plan: Continue on current medication regimen, monitoring and symptomatic treatment. Covid regimen, Lovenox. Follow closely with pulmonary. Prognosis guarded given multiple complex medical issues. The impression and plan of care has been dictated as directed. : I performed a history and examination of this patient, discussed the same with the dictator. I agree with the dictator's note ,documented as a scribe. Any additional findings or plans will be noted.
[2020-05-10] MEDS ORDERED: RX INFO: IV CONTRAST WAS GIVEN 1 EACH MISC MISCELLANE PRN (16:15)
[2020-05-10 16:44] LABS: Glucose,Whole Blood 98 mg/dL (75-99)
--- NOTE | 2020-05-10 17:20 | P.PN ---
Subjective Progress Note Date: 05/10/20 Principal diagnosis: Acute hypoxic respiratory failure secondary to acute covid 19 pneumonia 79-year-old female patient, morbidly obese with a BMI of 47, was hospitalized for COVID 19 related pneumonia. The patient currently is hypoxic on 3 L of oxygen by nasal cannula. She has comorbidities including obesity with a BMI of 47, hypertension, diabetes mellitus and gout. She also has hyperlipidemia and hypothyroidism. The patient started getting symptoms approximately a week ago, on 04/28/2020 and the patient was diagnosed having Covid 19 infection for a primary care physician's office on 04/29.. She continued to have episodes of fever and subsequently she became progressively more short of breath necessitating emergency department visitation today and ultimately she was hospitalized. Her chest x-ray showing bilateral pulmonary infiltrates peripheral distribution more so on the right compared to the left. The patient was started on steroids.. She is slightly nauseated. She also has loss of taste and smell LDH level is currently at 802 with a CRP of 55 and she had a lactic acid level of 2.1 at the time of admission. There d-dimer is still pending for now. Her white cell count is at 1.4 and the patient is lymphopenic with a lymphocyte count of 0.6 and there is also a drop in her platelet count down to 80 and these are all manifestations of COVID 19 infection. On today's evaluation of 04/27/2020, the patient's oxygenation has gotten worse. I saw her in the emergency department yesterday and she was on 4 L. She progressively required higher oxygen flow and she went up to a high flow oxygen through the nasal cannula airvo which she feels a currently she is on a BiPAP at a pressure of 10/5 with an FiO2 of 100%. She is able to generate a tidal volume around 450-500. Respiratory rate is in the mid 30s low 40s. She feels well. She is in mild degree of respiratory distress. She is still able to converse and talk to her BiPAP mask. Her current pulse ox is 94%. 60 showing diffuse breath and pulmonary infiltrates consistent with Covid 19 related pneumonia. Her white cell count is still down at 1.2. Platelet count is at 70 now which is low. D-dimer is at 0.65, her LDH level is at 835 with a CRP of 56. She is on Decadron. I'm going to switch her to Solu-Medrol. She is currently taking REM should be considered for convalescent plasma and addition to Tocilizumab The patient is seen today 05/06/2020 in follow-up on the regular medical floor. She is currently sitting up in bed. Awake and alert in no acute distress. Cu rrently on BiPAP 10/5 and 100% FiO2. Current saturation 88%. Chest x-ray reveals mild, medically. Residual bilateral airspace disease. Improving compared to previous. This is day #3 of Remdesivir. She received convalescent plasma 1, tocilizumab. D-dimer 0.84. C-reactive protein 2.8. LDH 459. She remains on Decadron, IV Solu-Medrol, vitamin supplements. Patient was reevaluated today on 05/07/2020, presently on 100% FiO2, BiPAP with IPAP of 10 and EPAP of 5, she is on day #4 of remdesivir . Patient also received convalescent plasma and actemra area and her overall status remains marginal. Patient does not seem to be in distress although her O2 saturation has been running anywhere between 85-93% on BiPAP with 100% FiO2 chest x-ray continues to show bilateral infiltrates with significant consolidation in the left lower lobe. Patient was reevaluated today on 05/08/2020, patient is on BiPAP, with FiO2 of 90%, IPAP of 10 and EPAP of 5, O2 saturation is in the low 90s. Clinically however the patient is doing great, relatively asymptomatic, and she remains on remdesivir, she is presently on day #5. Patient did also receive convalescent plasma and actemra. Continues to have leukopenia with WBC count of 1.4, hemoglobin is 11.1. D-dimer is 0.92. Left lites are normal renal profile is normal, LDH and C-reactive protein are on the rise. LDH is 1369 and C-reactive protein is 20. Pro-calcitonin level is 0.05 Patient was reevaluated today on 05/09/2020, remains on BiPAP, she is on 100%, O2 sats is 94%. Surprisingly, the patient seems to be doing well in spite of her significant O2 requirement and BiPAP. Patient received REM, she also received convalescent plasma and ACTEMRA. And so far does not seem to be making that significant turnaround and significant clinical improvement. CBC and basic metabolic profile are normal except for WBC count is 2.0 today. Patient was reevaluated today on 05/10/2020, still requiring significant amount of FiO2, she remains on BiPAP at 90% FiO2, she is on IPAP of 10 and EPAP of 5, and O2 saturation remains marginal. Clinically however the patient feels better breathing easier, and have d-dimer is not that significantly elevated but it is nonetheless abnormal. Hence I recommended a CT angiogram of the chest to be done today. Renal profile is normal. CBC continues to show leukopenia with WBC count of 2.0. Electrolytes are normal. Objective - Vital Signs Vital signs: Vital Signs Temp 97.0 F L 05/10/20 08:00 Pulse 79 05/10/20 12:00 Resp 24 05/10/20 04:00 BP 122/69 05/10/20 12:00 Pulse Ox 91 L 05/10/20 12:00 Intake & Output 05/09/20 05/10/20 05/10/20 18:59 06:59 18:59 Intake Total 280 1100 Output Total 250 300 Balance 30 -300 1100 Weight 142.5 kg 142 kg Intake: Intake, IV Titration 500 Amount Sodium Chloride 0.9% 1, 500 000 ml @ 100 mls/hr IV . Q10H [facility] Rx#:[id number] Oral 280 600 Output: Urine 250 300 Other: Voiding Method Bedside Commode # Voids 3 1 2 # Bowel Movements 1 - Exam Physical Exam: Revealed a 59-year-old female on BiPAP, 90% FiO2, IPAP of 10 EPAP of 5. Head: Is atraumatic normocephalic. HEENT:[Neck is supple.] [No neck masses.] [No thyromegaly.] [No JVD.] Chest: [Symmetrical chest expansion, crackles at the bases bilaterally. Cardiac Exam: [Normal S1 and S2, no S3 gallop, no murmur.] Abdomen: [Soft, nontender, no megaly, no rebound, no guarding, normal bowel sounds.] Extremities: [No clubbing, no edema, no cyanosis.] Neurological Exam: [No focal neurologic deficit.] Alert and oriented 3. Psychiatric: Normal mood affect and normal mental status examination. - Labs CBC & Chem 7: 05/09/20 10:44 05/09/20 10:44 Labs: Abnormal Lab Results - Last 24 Hours (Table) 05/09/20 05/10/20 05/10/20 Range/Units 19:46 07:08 12:06 POC Glucose (mg/dL) 119 H 167 H 117 H (75-99) mg/dL Microbiology - Last 24 Hours (Table) 05/04/20 13:36 Blood Culture - Final Blood No Growth after 144 hours 05/04/20 13:36 Blood Culture - Final Blood No Growth after 144 hours Assessment and Plan Assessment: 1 acute Covid 19 related pneumonia, symptoms started on 04/28/2020, diagnosed to be positive on 04/29/2020 and currently presenting with worsening shortness of breath and hypoxic respiratory failure, after being on 4 L the patient progressed to high flow and currently she is on a BiPAP and she does developed diffuse bilateral pulmonary infiltrates. This is rapid progression with hypoxemic respiratory failure. Day #3 of Remdesivir, she received tocilizumab and convalescent plasma. 2 acute hypoxic respiratory failure secondary to above 3 fever secondary to above 4 leukopenia, lymphopenia and thrombocytopenia secondary to above, white cell count remains low 5 mild elevation of inflammatory markers secondary to Covid 19 infection 6 obesity with a BMI of 47.0 7 diabetes mellitus type 2 8 hypertension 9 hyperlipidemia 10 hypothyroidism Recommendation: Arrange for CT angiogram of the chest. And based on the CT angiogram findings further recommendations will follow. Continue present supportive care measures. Continue BiPAP. Titrate FiO2 down as tolerated and maintain O2 saturation above 90%. Continue the Covid 19 cocktail. Patient received convalescent plasma, received actemra, finished full course of REM Continue Decadron Lovenox and vitamin supplements. Prognosis remains guarded, we'll continue to follow Time with Patient: Less than 30
--- NOTE | 2020-05-10 17:38 | PN ---
PROGRESS NOTE DATE OF SERVICE: 05/10/2020 REASON FOR FOLLOWUP: COVID-19 pneumonia. INTERVAL HISTORY: The patient is currently afebrile. The patient is breathing slightly comfortably, still on BiPAP. The patient denies having any chest pain. Did have some cough; no sputum. No abdominal pain and no diarrhea. PHYSICAL EXAMINATION: Blood pressure 122/69, pulse of 79, temperature 97. She is 91% on BiPAP. General description is a middle-aged female up in the bed in no distress. RESPIRATORY SYSTEM: Unlabored breathing with decreased intensity of breath sounds. No wheeze. HEART: S1, S2. Regular rate and rhythm. ABDOMEN: Soft. No tenderness. LABS: No new labs have been obtained today. Blood culture has been negative. DIAGNOSTIC IMPRESSION AND PLAN: Patient with acute COVID-19 pneumonia with respiratory failure, on BiPAP. The patient is currently on Solu-Medrol, zinc, Lovenox, ascorbic acid along with respiratory support; to continue, monitoring clinical course closely. MMODL / IJN: [id number] /
--- NOTE | 2020-05-10 17:53 | CT ---
EXAMINATION TYPE: CT angio chest DATE OF EXAM: 05/10/2020 COMPARISON: 01/31/2009 HISTORY: PE Chest pain CT DLP: 890.6 mGycm Automated exposure control for dose reduction was used. CONTRAST: Performed with IV Contrast, patient injected with 100 mL of Isovue 370. There are 3-D post processed images. There is diffuse pulmonary interstitial edema. There is some airspace infiltrate and atelectasis in t he posterior lung hernandez. Heart is enlarged. There is no pericardial effusion. There is no pleural ef fusion. There are clips from cholecystectomy. There are clips from gastric bariatric surgery. There is no evidence of filling defect in the pulmonary arteries. Thoracic aorta is intact. There is no aneurysm or dissection. There is no mediastinal adenopathy. There are no hilar masses. The bony thorax is intact. Sternum is intact. IMPRESSION: No evidence of pulmonary embolism. Moderately severe pulmonary interstitial edema. Airspace infiltrates and atelectasis in the posterior lung hernandez. Pulmonary abnormalities are significantly increased compared to old exam. No suspicious pulmonary mass.
[2020-05-10 20:48] LABS: Glucose,Whole Blood 113 mg/dL (75-99)
[2020-05-10] MEDS: BACLOFEN 10 MG TAB PO SCH (20:50)
[2020-05-10] MEDS: INSULIN DETEMIR (LEVEMIR) 100 UNIT/ML SYR SQ SCH (20:57)
[2020-05-11] MEDS: LEVOTHYROXINE 75 MCG TAB PO SCH (05:51)
[2020-05-11] MEDS: GLIMEPIRIDE 4 MG TAB PO SCH (05:51)
[2020-05-11] MEDS: methylPREDNISolone SOD SUCCI 125 MG/2 ML VIAL IV SCH ×4 (05:51→22:48)
[2020-05-11] MEDS: SODIUM CHLORIDE 0.9% 1,000 ML IV SCH ×2 (05:51→17:30)
[2020-05-11 07:23] LABS: Glucose,Whole Blood 135 mg/dL (75-99)
[2020-05-11] MEDS: INSULIN ASPART (NovoLOG) 100 UNIT/ML VIAL SQ SCH ×7 (08:06→20:31)
[2020-05-11] MEDS: guaiFENesin SYRUP 100MG/5ML 200 MG/10 ML CUP PO PRN (08:19)
[2020-05-11] MEDS: ASCORBIC ACID 500 MG TAB PO SCH (08:19)
[2020-05-11] MEDS: GABAPENTIN 300 MG CAP PO SCH ×4 (08:19→20:38)
[2020-05-11] MEDS: FERROUS SULFATE 325 MG TAB PO SCH (08:19)
[2020-05-11] MEDS: FAMOTIDINE 20 MG/2 ML VIAL IV SCH ×2 (08:19→20:37)
[2020-05-11] MEDS: allopurinoL 100 MG TAB PO SCH (08:19)
[2020-05-11] MEDS: lisinopriL 10 MG TAB PO SCH (08:19)
[2020-05-11] MEDS: ZINC SULFATE 220 MG CAP PO SCH (08:19)
[2020-05-11] MEDS: CHOLECALCIFEROL 25 MCG (1000 IU) TABLET PO SCH (08:20)
[2020-05-11] MEDS: ATORVASTATIN 40 MG TAB PO SCH (08:20)
[2020-05-11] MEDS: ESCITALOPRAM 20 MG TAB PO SCH (08:20)
[2020-05-11] MEDS: ENOXAPARIN 40 MG/0.4 ML SYRINGE SQ SCH (08:20)
[2020-05-11 09:12] LABS: Anisocytosis Slight; HCT 36.6 % (34.0-46.0); HGB 11.6 gm/dL (11.4-16.0); Hypochromasia Slight; MCH 27.7 pg (25.0-35.0); MCHC 31.6 g/dL (31.0-37.0); MCV 87.7 fL (80.0-100.0); Mean Platelet Volume 8.1; Platelet Count 118 k/uL (150-450); RBC 4.17 m/uL (3.80-5.40); RDW 16.5 % (11.5-15.5); WBC 2.2 k/uL (3.8-10.6)
[2020-05-11 09:31] LABS: African American GFR (CKD) >90 (>60 ml/min/1.73 sqM); Anion Gap 3 mmol/L; Blood Urea Nitrogen 21 mg/dL (7-17); Calcium 8.3 mg/dL (8.4-10.2); Carbon Dioxide 28 mmol/L (22-30); Chloride 106 mmol/L (98-107); Glucose 142 mg/dL (74-99); Non-African American GFR(CKD) >90 (>60 ml/min/1.73 sqM); Potassium 4.6 mmol/L (3.5-5.1); Sodium 137 mmol/L (137-145)
[2020-05-11] MEDS ORDERED: FUROSEMIDE 10 MG/ML 4 ML VIAL IV STA (11:22)
[2020-05-11 12:05] LABS: Band Neutrophils % 2 %; Lymphocytes # (M) 0.37 k/uL (1.0-4.8); Monocytes # (M) 0.18 k/uL (0-1.0); Neutrophils % (M) 73 %; Nucleated Red Blood Cells 0 /100 WBC (0-0); Total Cells Counted 100
[2020-05-11 12:06] LABS: Poikilocytosis (M) Present
[2020-05-11 12:42] LABS: Glucose,Whole Blood 155 mg/dL (75-99)
--- NOTE | 2020-05-11 16:03 | P.PN ---
Subjective Progress Note Date: 05/11/20 Principal diagnosis: Acute hypoxic respiratory failure secondary to acute covid 19 pneumonia 79-year-old female patient, morbidly obese with a BMI of 47, was hospitalized for COVID 19 related pneumonia. The patient currently is hypoxic on 3 L of oxygen by nasal cannula. She has comorbidities including obesity with a BMI of 47, hypertension, diabetes mellitus and gout. She also has hyperlipidemia and hypothyroidism. The patient started getting symptoms approximately a week ago, on 04/28/2020 and the patient was diagnosed having Covid 19 infection for a primary care physician's office on 04/29.. She continued to have episodes of fever and subsequently she became progressively more short of breath necessitating emergency department visitation today and ultimately she was hospitalized. Her chest x-ray showing bilateral pulmonary infiltrates peripheral distribution more so on the right compared to the left. The patient was started on steroids.. She is slightly nauseated. She also has loss of taste and smell LDH level is currently at 802 with a CRP of 55 and she had a lactic acid level of 2.1 at the time of admission. There d-dimer is still pending for now. Her white cell count is at 1.4 and the patient is lymphopenic with a lymphocyte count of 0.6 and there is also a drop in her platelet count down to 80 and these are all manifestations of COVID 19 infection. On today's evaluation of 04/27/2020, the patient's oxygenation has gotten worse. I saw her in the emergency department yesterday and she was on 4 L. She progressively required higher oxygen flow and she went up to a high flow oxygen through the nasal cannula airvo which she feels a currently she is on a BiPAP at a pressure of 10/5 with an FiO2 of 100%. She is able to generate a tidal volume around 450-500. Respiratory rate is in the mid 30s low 40s. She feels well. She is in mild degree of respiratory distress. She is still able to converse and talk to her BiPAP mask. Her current pulse ox is 94%. 60 showing diffuse breath and pulmonary infiltrates consistent with Covid 19 related pneumonia. Her white cell count is still down at 1.2. Platelet count is at 70 now which is low. D-dimer is at 0.65, her LDH level is at 835 with a CRP of 56. She is on Decadron. I'm going to switch her to Solu-Medrol. She is currently taking REM should be considered for convalescent plasma and addition to Tocilizumab The patient is seen today 05/06/2020 in follow-up on the regular medical floor. She is currently sitting up in bed. Awake and alert in no acute distress. Cu rrently on BiPAP 10/5 and 100% FiO2. Current saturation 88%. Chest x-ray reveals mild, medically. Residual bilateral airspace disease. Improving compared to previous. This is day #3 of Remdesivir. She received convalescent plasma 1, tocilizumab. D-dimer 0.84. C-reactive protein 2.8. LDH 459. She remains on Decadron, IV Solu-Medrol, vitamin supplements. Patient was reevaluated today on 05/07/2020, presently on 100% FiO2, BiPAP with IPAP of 10 and EPAP of 5, she is on day #4 of remdesivir . Patient also received convalescent plasma and actemra area and her overall status remains marginal. Patient does not seem to be in distress although her O2 saturation has been running anywhere between 85-93% on BiPAP with 100% FiO2 chest x-ray continues to show bilateral infiltrates with significant consolidation in the left lower lobe. Patient was reevaluated today on 05/08/2020, patient is on BiPAP, with FiO2 of 90%, IPAP of 10 and EPAP of 5, O2 saturation is in the low 90s. Clinically however the patient is doing great, relatively asymptomatic, and she remains on remdesivir, she is presently on day #5. Patient did also receive convalescent plasma and actemra. Continues to have leukopenia with WBC count of 1.4, hemoglobin is 11.1. D-dimer is 0.92. Left lites are normal renal profile is normal, LDH and C-reactive protein are on the rise. LDH is 1369 and C-reactive protein is 20. Pro-calcitonin level is 0.05 Patient was reevaluated today on 05/09/2020, remains on BiPAP, she is on 100%, O2 sats is 94%. Surprisingly, the patient seems to be doing well in spite of her significant O2 requirement and BiPAP. Patient received REM, she also received convalescent plasma and ACTEMRA. And so far does not seem to be making that significant turnaround and significant clinical improvement. CBC and basic metabolic profile are normal except for WBC count is 2.0 today. Patient was reevaluated today on 05/10/2020, still requiring significant amount of FiO2, she remains on BiPAP at 90% FiO2, she is on IPAP of 10 and EPAP of 5, and O2 saturation remains marginal. Clinically however the patient feels better breathing easier, and have d-dimer is not that significantly elevated but it is nonetheless abnormal. Hence I recommended a CT angiogram of the chest to be done today. Renal profile is normal. CBC continues to show leukopenia with WBC count of 2.0. Electrolytes are normal. Patient was reevaluated today on 05/11/2020, patient is basically about the same. Remains on BiPAP. Her FiO2 is still at 90%, and her O2 saturation is in the low 90s. Patient is on IPAP of 10 and EPAP of 5, seems to be very comfortable. CT angiogram of the chest yesterday showed bilateral interstitial infiltrates, no evidence of thromboembolic disease/pulmonary embolism. WBC count is 2.2 hemoglobin is 11.6. A left lites are normal renal profile is normal clinically the patient is fairly comfortable, however she is still requiring significant high FiO2. Objective - Vital Signs Vital signs: Vital Signs Temp 98.6 F 05/11/20 12:43 Pulse 76 05/11/20 12:43 Resp 24 05/11/20 12:43 BP 127/61 05/11/20 12:43 Pulse Ox 92 L 05/11/20 12:43 Intake & Output 05/10/20 05/11/20 05/11/20 18:59 06:59 18:59 Intake Total 1100 1000 750 Balance 1100 1000 750 Weight 139.5 kg 139.5 kg Intake: Intake, IV Titration 500 1000 60 Amount Sodium Chloride 0.9% 1, 500 1000 60 000 ml @ 20 mls/hr IV . Q24H [facility] Rx#:[id number] Oral 600 690 Other: # Voids 2 1 # Bowel Movements 1 - Exam Physical Exam: Revealed a 59-year-old female on BiPAP, 90% FiO2, IPAP of 10 EPAP of 5. Head: Is atraumatic normocephalic. HEENT:[Neck is supple.] [No neck masses.] [No thyromegaly.] [No JVD.] Chest: [Symmetrical chest expansion, crackles at the bases bilaterally. Cardiac Exam: [Normal S1 and S2, no S3 gallop, no murmur.] Abdomen: [Soft, nontender, no megaly, no rebound, no guarding, normal bowel sounds.] Extremities: [No clubbing, no edema, no cyanosis.] Neurological Exam: [No focal neurologic deficit.] Alert and oriented 3. Psychiatric: Normal mood affect and normal mental status examination. - Labs CBC & Chem 7: 05/11/20 08:35 05/11/20 08:35 Labs: Abnormal Lab Results - Last 24 Hours (Table) 05/10/20 05/11/20 05/11/20 Range/Units 20:46 07:18 08:35 WBC 2.2 L (3.8-10.6) k/uL RDW 16.5 H (11.5-15.5) % Plt Count 118 L (150-450) k/uL Lymphocytes # (Manual) 0.37 L (1.0-4.8) k/uL BUN (7-17) mg/dL Glucose (74-99) mg/dL POC Glucose (mg/dL) 113 H 135 H (75-99) mg/dL Calcium (8.4-10.2) mg/dL 05/11/20 05/11/20 Range/Units 08:35 12:25 WBC (3.8-10.6) k/uL RDW (11.5-15.5) % Plt Count (150-450) k/uL Lymphocytes # (Manual) (1.0-4.8) k/uL BUN 21 H (7-17) mg/dL Glucose 142 H (74-99) mg/dL POC Glucose (mg/dL) 155 H (75-99) mg/dL Calcium 8.3 L (8.4-10.2) mg/dL Microbiology - Last 24 Hours (Table) 05/04/20 13:36 Blood Culture - Final Blood No Growth after 144 hours 05/04/20 13:36 Blood Culture - Final Blood No Growth after 144 hours Assessment and Plan Assessment: 1 acute Covid 19 related pneumonia, symptoms started on 04/28/2020, diagnosed to be positive on 04/29/2020 2 acute hypoxic respiratory failure secondary to above 3 fever secondary to above 4 leukopenia, lymphopenia and thrombocytopenia secondary to above, white cell count remains low 5 mild elevation of inflammatory markers secondary to Covid 19 infection 6 obesity with a BMI of 47.0 7 diabetes mellitus type 2 8 hypertension 9 hyperlipidemia 10 hypothyroidism Recommendation: Updated the patient on the results of her CT angiogram of the chest, and made aware that there is no evidence of thromboembolic disease. Continue present supportive care measures. Continue BiPAP. Titrate FiO2 down as tolerated and maintain O2 saturation above 90%. Continue the Covid 19 cocktail. Patient received convalescent plasma, received actemra, and finished REM. Continue Solu-Medrol, Lovenox and vitamin supplements. Prognosis remains guarded, we'll continue to follow Patient is not quite ready for any discharge planning at this point. Time with Patient: Less than 30
--- NOTE | 2020-05-11 16:20 | P.PN ---
Subjective Progress Note Date: 05/11/20 Principal diagnosis: acute Covid 19 related pneumonia acute hypoxic respiratory failure secondary to above 59-year-old female admitted with acute hypoxic respiratory failure secondary to covid- 19 pneumonia, hypertension, diabetes mellitus, obesity and multiple other medical issues. Oxygen requirements worsened, requiring BiPAP. Chest x-ray reporting bilateral interstitial and patchy airspace opacities remain ,mild cardiomegaly. Denies chest pain, palpitations, reports chest soreness from nonproductive cough. Received a dose of Actemra, maintained on Remdesevir, IV steroids , antibiotics and multivitamin supplements. Afebrile, LDH and C- reactive protein trending down. 05/11/2020, patient is seen and evaluated in room at bedside; clinically remains unchanged. Remains on BiPAP. Her FiO2 is still at 90%, and her O2 saturation is in the low 90s. Patient is on IPAP of 10 and EPAP of 5, seems to be very comfortable. CT angiogram of the chest yesterday showed bilateral interstitial infiltrates, no evidence of thromboembolic disease/pulmonary embolism. WBC count is 2.2 hemoglobin is 11.; Electrolyte are normal renal profile is normal clinically the patient is fairly comfortable, however she is still requiring significant high FiO2. Pulmonary on board and recommending to continue BiPAP. Titrate FiO2 down as tolerated and maintain O2 saturation above 90%. Continue the Covid 19 cocktail. Patient received convalescent plasma, received actemra, and finished REM. Continue Solu-Medrol, Lovenox and vitamin supplements. Objective - Vital Signs Vital signs: Vital Signs Temp 99.2 F 05/11/20 08:00 Pulse 78 05/11/20 08:00 Resp 22 05/11/20 08:00 BP 139/69 05/11/20 08:00 Pulse Ox 91 L 05/11/20 08:00 Intake & Output 05/10/20 05/11/20 05/11/20 18:59 06:59 18:59 Intake Total 1100 1000 360 Balance 1100 1000 360 Weight 139.5 kg Intake: Intake, IV Titration 500 1000 Amount Sodium Chloride 0.9% 1, 500 1000 000 ml @ 100 mls/hr IV . Q10H [facility] Rx#:[id number] Oral 600 360 Other: # Voids 2 1 # Bowel Movements 1 - Exam Physical Exam: Revealed a 59-year-old female on BiPAP, 90% FiO2, IPAP of 10 EPAP of 5. Head: Is atraumatic normocephalic. HEENT:[Neck is supple.] [No neck masses.] [No thyromegaly.] [No JVD.] Chest: [Symmetrical chest expansion, crackles at the bases bilaterally. Cardiac Exam: [Normal S1 and S2, no S3 gallop, no murmur.] Abdomen: [Soft, nontender, no megaly, no rebound, no guarding, normal bowel sounds.] Extremities: [No clubbing, no edema, no cyanosis.] Neurological Exam: [No focal neurologic deficit.] Alert and oriented 3. Psychiatric: Normal mood affect and normal mental status examination. - Labs CBC & Chem 7: 05/11/20 08:35 05/11/20 08:35 Labs: Abnormal Lab Results - Last 24 Hours (Table) 05/10/20 05/10/20 05/11/20 Range/Units 12:06 20:46 07:18 WBC (3.8-10.6) k/uL RDW (11.5-15.5) % Plt Count (150-450) k/uL BUN (7-17) mg/dL Glucose (74-99) mg/dL POC Glucose (mg/dL) 117 H 113 H 135 H (75-99) mg/dL Calcium (8.4-10.2) mg/dL 05/11/20 05/11/20 Range/Units 08:35 08:35 WBC 2.2 L (3.8-10.6) k/uL RDW 16.5 H (11.5-15.5) % Plt Count 118 L (150-450) k/uL BUN 21 H (7-17) mg/dL Glucose 142 H (74-99) mg/dL POC Glucose (mg/dL) (75-99) mg/dL Calcium 8.3 L (8.4-10.2) mg/dL Microbiology - Last 24 Hours (Table) 05/04/20 13:36 Blood Culture - Final Blood No Growth after 144 hours 05/04/20 13:36 Blood Culture - Final Blood No Growth after 144 hours Assessment and Plan Assessment: Acute Covid-19 pneumonia, status post convalescent plasma, received tocilizumab, completed Remdesevir Acute hypoxic respiratory failure secondary to the above,BiPAP dependent. Acute anxiety secondary to the above and BiPAP mask leukopenia, lymphopenia and thrombocytopenia secondary to above Diabetes mellitus type 2 Hypertension Hyperlipidemia Hypothyroidism Morbid obesity, BMI 47 Updated the patient on the results of her CT angiogram of the chest, and made aware that there is no evidence of thromboembolic disease. Continue present supportive care measures. Continue BiPAP. Titrate FiO2 down as tolerated and maintain O2 saturation above 90%. Continue the Covid 19 cocktail. Patient received convalescent plasma, received actemra, and finished REM. Continue Solu-Medrol, Lovenox and vitamin supplements. Prognosis remains guarded, we'll continue to follow
[2020-05-11 17:05] LABS: Glucose,Whole Blood 199 mg/dL (75-99)
--- NOTE | 2020-05-11 19:30 | PN ---
PROGRESS NOTE DATE OF SERVICE: 05/11/2020. REASON FOR FOLLOWUP: COVID-19 pneumonia. INTERVAL HISTORY: Patient is currently afebrile. The patient remains to be on BiPAP. She is breathing slightly comfortably. Denies having any chest pain. Occasional cough. No nausea, no vomiting. No abdominal pain. Did have diarrhea but no worsening. PHYSICAL EXAMINATION: Her blood pressure is 120/73 with a pulse of 90, temperature of 97.4. She is 98% on BiPAP, currently 80% FIO2. General description is a middle-aged female up in the bed in no distress. Respiratory system: Unlabored breathing, decreased intensity of breath sounds. No wheeze. Heart S1, S2. Regular rate and rhythm. Abdomen soft, no tenderness. LABS: Hemoglobin 9.2, BUN of 21, creatinine 0.66. Blood culture has been negative. DIAGNOSTIC IMPRESSION AND PLAN: Patient with acute COVID-19 pneumonia with acute respiratory failure in this patient currently covered with Solu-Medrol, Lovenox, zinc and ascorbic acid. Monitor clinical course closely. Continue supportive care. MMODL / IJN: [id number] /
[2020-05-11 20:16] LABS: Glucose,Whole Blood 165 mg/dL (75-99)
[2020-05-11] MEDS: BACLOFEN 10 MG TAB PO SCH (20:38)
[2020-05-11] MEDS: INSULIN DETEMIR (LEVEMIR) 100 UNIT/ML SYR SQ SCH (20:39)
[2020-05-12] MEDS: LEVOTHYROXINE 75 MCG TAB PO SCH (06:13)
[2020-05-12] MEDS: methylPREDNISolone SOD SUCCI 125 MG/2 ML VIAL IV SCH ×4 (06:13→23:16)
[2020-05-12] MEDS: GLIMEPIRIDE 4 MG TAB PO SCH (06:13)
[2020-05-12 07:01] LABS: Glucose,Whole Blood 159 mg/dL (75-99)
[2020-05-12] MEDS: ENOXAPARIN 40 MG/0.4 ML SYRINGE SQ SCH (08:02)
[2020-05-12] MEDS: INSULIN ASPART (NovoLOG) 100 UNIT/ML VIAL SQ SCH ×7 (08:02→20:22)
[2020-05-12] MEDS: GABAPENTIN 300 MG CAP PO SCH ×4 (08:02→20:09)
[2020-05-12] MEDS: allopurinoL 100 MG TAB PO SCH (08:03)
[2020-05-12] MEDS: ATORVASTATIN 40 MG TAB PO SCH (08:03)
[2020-05-12] MEDS: CHOLECALCIFEROL 25 MCG (1000 IU) TABLET PO SCH (08:03)
[2020-05-12] MEDS: ZINC SULFATE 220 MG CAP PO SCH (08:03)
[2020-05-12] MEDS: FERROUS SULFATE 325 MG TAB PO SCH (08:03)
[2020-05-12] MEDS: ASCORBIC ACID 500 MG TAB PO SCH (08:03)
[2020-05-12] MEDS: ESCITALOPRAM 20 MG TAB PO SCH (08:03)
[2020-05-12] MEDS: lisinopriL 10 MG TAB PO SCH (08:03)
[2020-05-12] MEDS: FAMOTIDINE 20 MG/2 ML VIAL IV SCH (08:03)
[2020-05-12 08:55] LABS: Anisocytosis Slight; Basophils % (A) 0 %; Eosinophils % (A) 1 %; HCT 37.2 % (34.0-46.0); HGB 12.4 gm/dL (11.4-16.0); Lymphocytes # (A) 0.3 k/uL (1.0-4.8); Lymphocytes % (A) 12 %; MCH 29.1 pg (25.0-35.0); MCHC 33.4 g/dL (31.0-37.0); MCV 87.1 fL (80.0-100.0); Mean Platelet Volume 8.2; Monocytes # (A) 0.1 k/uL (0-1.0); Monocytes % (A) 5 %; Neutrophils # (A) 1.9 k/uL (1.3-7.7); Neutrophils % (A) 81 %; Platelet Count 111 k/uL (150-450); RBC 4.27 m/uL (3.80-5.40); WBC 2.3 k/uL (3.8-10.6)
[2020-05-12 09:05] LABS: African American GFR (CKD) >90 (>60 ml/min/1.73 sqM); Anion Gap 1 mmol/L; Blood Urea Nitrogen 21 mg/dL (7-17); Calcium 8.6 mg/dL (8.4-10.2); Carbon Dioxide 33 mmol/L (22-30); Chloride 102 mmol/L (98-107); Glucose 148 mg/dL (74-99); Non-African American GFR(CKD) >90 (>60 ml/min/1.73 sqM); Potassium 4.1 mmol/L (3.5-5.1); Sodium 136 mmol/L (137-145)
[2020-05-12 12:31] LABS: Glucose,Whole Blood 138 mg/dL (75-99)
[2020-05-12] MEDS: MAG HYDROX/AL HYDROX/SIMETH 30 ML CUP PO SCH ×3 (13:00→23:15)
[2020-05-12] MEDS: PANTOPRAZOLE 40 MG/10 ML VIAL IVP SCH ×2 (13:01→20:08)
[2020-05-12] MEDS ORDERED: FUROSEMIDE 10 MG/ML 4 ML VIAL IV STA (14:41)
--- NOTE | 2020-05-12 15:16 | P.PN ---
Subjective Progress Note Date: 05/12/20 Principal diagnosis: acute Covid 19 related pneumonia acute hypoxic respiratory failure secondary to above 59-year-old female admitted with acute hypoxic respiratory failure secondary to covid- 19 pneumonia, hypertension, diabetes mellitus, obesity and multiple other medical issues. Oxygen requirements worsened, requiring BiPAP. Chest x-ray reporting bilateral interstitial and patchy airspace opacities remain ,mild cardiomegaly. Denies chest pain, palpitations, reports chest soreness from nonproductive cough. Received a dose of Actemra, maintained on Remdesevir, IV steroids , antibiotics and multivitamin supplements. Afebrile, LDH and C- reactive protein trending down. 05/11/2020, patient is seen and evaluated in room at bedside; clinically remains unchanged. Remains on BiPAP. Her FiO2 is still at 90%, and her O2 saturation is in the low 90s. Patient is on IPAP of 10 and EPAP of 5, seems to be very comfortable. CT angiogram of the chest yesterday showed bilateral interstitial infiltrates, no evidence of thromboembolic disease/pulmonary embolism. WBC count is 2.2 hemoglobin is 11.; Electrolyte are normal renal profile is normal clinically the patient is fairly comfortable, however she is still requiring significant high FiO2. Pulmonary on board and recommending to continue BiPAP. Titrate FiO2 down as tolerated and maintain O2 saturation above 90%. Continue the Covid 19 cocktail. Patient received convalescent plasma, received actemra, and finished REM. Continue Solu-Medrol, Lovenox and vitamin supplements. 05/12/2020 Patient is seen and evaluated in room at bedside; clinically remains unchanged Remains on BiPAP at FiO2 of 80% with O2 saturation around 90s Laboratory review shows a white blood count slowly trending up and is 2.3 this morning with hemoglobin of 12.4 and platelet count of 111; sodium of 136, potassium 4.1, BUN/creatinine of 21/0.7 to; blood sugars remain stable in 130s Plan is to continue BiPAP. Titrate FiO2 down as tolerated and maintain O2 saturation above 90%. Continue the Covid 19 cocktail. Patient received convalescent plasma, received actemra, and finished REM. Continue Solu-Medrol, Lovenox and vitamin supplements. Objective - Vital Signs Vital signs: Vital Signs Temp 98.5 F 05/12/20 07:56 Pulse 67 05/12/20 07:56 Resp 20 05/12/20 07:56 BP 136/66 05/12/20 07:56 Pulse Ox 93 L 05/12/20 07:56 Intake & Output 05/11/20 05/12/20 05/12/20 18:59 06:59 18:59 Intake Total 930 Balance 930 Weight 139.5 kg 143 kg Intake: Intake, IV Titration 60 Amount Sodium Chloride 0.9% 1, 60 000 ml @ 20 mls/hr IV . Q24H [facility] Rx#:[id number] Oral 870 Other: # Voids 1 1 - Exam Physical Exam: Revealed a 59-year-old female on BiPAP, 90% FiO2, IPAP of 10 EPAP of 5. Head: Is atraumatic normocephalic. HEENT:[Neck is supple.] [No neck masses.] [No thyromegaly.] [No JVD.] Chest: [Symmetrical chest expansion, crackles at the bases bilaterally. Cardiac Exam: [Normal S1 and S2, no S3 gallop, no murmur.] Abdomen: [Soft, nontender, no megaly, no rebound, no guarding, normal bowel sounds.] Extremities: [No clubbing, no edema, no cyanosis.] Neurological Exam: [No focal neurologic deficit.] Alert and oriented 3. Psychiatric: Normal mood affect and normal mental status examination. - Labs CBC & Chem 7: 05/12/20 08:42 05/12/20 08:42 Labs: Abnormal Lab Results - Last 24 Hours (Table) 05/11/20 05/11/20 05/11/20 Range/Units 08:35 08:35 12:25 WBC 2.2 L (3.8-10.6) k/uL RDW 16.5 H (11.5-15.5) % Plt Count 118 L (150-450) k/uL Lymphocytes # (Manual) 0.37 L (1.0-4.8) k/uL BUN 21 H (7-17) mg/dL Glucose 142 H (74-99) mg/dL POC Glucose (mg/dL) 155 H (75-99) mg/dL Calcium 8.3 L (8.4-10.2) mg/dL 04/03/21 04/03/21 04/04/21 Range/Units 17:02 20:14 06:57 WBC (3.8-10.6) k/uL RDW (11.5-15.5) % Plt Count (150-450) k/uL Lymphocytes # (Manual) (1.0-4.8) k/uL BUN (7-17) mg/dL Glucose (74-99) mg/dL POC Glucose (mg/dL) 199 H 165 H 159 H (75-99) mg/dL Calcium (8.4-10.2) mg/dL Assessment and Plan Assessment: Acute Covid-19 pneumonia, status post convalescent plasma, received tocilizumab, completed Remdesevir Acute hypoxic respiratory failure secondary to the above,BiPAP dependent. Acute anxiety secondary to the above and BiPAP mask leukopenia, lymphopenia and thrombocytopenia secondary to above Diabetes mellitus type 2 Hypertension Hyperlipidemia Hypothyroidism Morbid obesity, BMI 47 Updated the patient on the results of her CT angiogram of the chest, and made aware that there is no evidence of thromboembolic disease. Continue present supportive care measures. Continue BiPAP. Titrate FiO2 down as tolerated and maintain O2 saturation above 90%. Continue the Covid 19 cocktail. Patient received convalescent plasma, received actemra, and finished REM. Continue Solu-Medrol, Lovenox and vitamin supplements. Prognosis remains guarded, we'll continue to follow
--- NOTE | 2020-05-12 16:16 | P.PN ---
Subjective Progress Note Date: 05/12/20 Principal diagnosis: Acute hypoxic respiratory failure secondary to acute covid 19 pneumonia 79-year-old female patient, morbidly obese with a BMI of 47, was hospitalized for COVID 19 related pneumonia. The patient currently is hypoxic on 3 L of oxygen by nasal cannula. She has comorbidities including obesity with a BMI of 47, hypertension, diabetes mellitus and gout. She also has hyperlipidemia and hypothyroidism. The patient started getting symptoms approximately a week ago, on 04/28/2020 and the patient was diagnosed having Covid 19 infection for a primary care physician's office on 04/29.. She continued to have episodes of fever and subsequently she became progressively more short of breath necessitating emergency department visitation today and ultimately she was hospitalized. Her chest x-ray showing bilateral pulmonary infiltrates peripheral distribution more so on the right compared to the left. The patient was started on steroids.. She is slightly nauseated. She also has loss of taste and smell LDH level is currently at 802 with a CRP of 55 and she had a lactic acid level of 2.1 at the time of admission. There d-dimer is still pending for now. Her white cell count is at 1.4 and the patient is lymphopenic with a lymphocyte count of 0.6 and there is also a drop in her platelet count down to 80 and these are all manifestations of COVID 19 infection. On today's evaluation of 04/27/2020, the patient's oxygenation has gotten worse. I saw her in the emergency department yesterday and she was on 4 L. She progressively required higher oxygen flow and she went up to a high flow oxygen through the nasal cannula airvo which she feels a currently she is on a BiPAP at a pressure of 10/5 with an FiO2 of 100%. She is able to generate a tidal volume around 450-500. Respiratory rate is in the mid 30s low 40s. She feels well. She is in mild degree of respiratory distress. She is still able to converse and talk to her BiPAP mask. Her current pulse ox is 94%. 60 showing diffuse breath and pulmonary infiltrates consistent with Covid 19 related pneumonia. Her white cell count is still down at 1.2. Platelet count is at 70 now which is low. D-dimer is at 0.65, her LDH level is at 835 with a CRP of 56. She is on Decadron. I'm going to switch her to Solu-Medrol. She is currently taking REM should be considered for convalescent plasma and addition to Tocilizumab The patient is seen today 05/06/2020 in follow-up on the regular medical floor. She is currently sitting up in bed. Awake and alert in no acute distress. Cu rrently on BiPAP 10/5 and 100% FiO2. Current saturation 88%. Chest x-ray reveals mild, medically. Residual bilateral airspace disease. Improving compared to previous. This is day #3 of Remdesivir. She received convalescent plasma 1, tocilizumab. D-dimer 0.84. C-reactive protein 2.8. LDH 459. She remains on Decadron, IV Solu-Medrol, vitamin supplements. Patient was reevaluated today on 05/07/2020, presently on 100% FiO2, BiPAP with IPAP of 10 and EPAP of 5, she is on day #4 of remdesivir . Patient also received convalescent plasma and actemra area and her overall status remains marginal. Patient does not seem to be in distress although her O2 saturation has been running anywhere between 85-93% on BiPAP with 100% FiO2 chest x-ray continues to show bilateral infiltrates with significant consolidation in the left lower lobe. Patient was reevaluated today on 05/08/2020, patient is on BiPAP, with FiO2 of 90%, IPAP of 10 and EPAP of 5, O2 saturation is in the low 90s. Clinically however the patient is doing great, relatively asymptomatic, and she remains on remdesivir, she is presently on day #5. Patient did also receive convalescent plasma and actemra. Continues to have leukopenia with WBC count of 1.4, hemoglobin is 11.1. D-dimer is 0.92. Left lites are normal renal profile is normal, LDH and C-reactive protein are on the rise. LDH is 1369 and C-reactive protein is 20. Pro-calcitonin level is 0.05 Patient was reevaluated today on 05/09/2020, remains on BiPAP, she is on 100%, O2 sats is 94%. Surprisingly, the patient seems to be doing well in spite of her significant O2 requirement and BiPAP. Patient received REM, she also received convalescent plasma and ACTEMRA. And so far does not seem to be making that significant turnaround and significant clinical improvement. CBC and basic metabolic profile are normal except for WBC count is 2.0 today. Patient was reevaluated today on 05/10/2020, still requiring significant amount of FiO2, she remains on BiPAP at 90% FiO2, she is on IPAP of 10 and EPAP of 5, and O2 saturation remains marginal. Clinically however the patient feels better breathing easier, and have d-dimer is not that significantly elevated but it is nonetheless abnormal. Hence I recommended a CT angiogram of the chest to be done today. Renal profile is normal. CBC continues to show leukopenia with WBC count of 2.0. Electrolytes are normal. Patient was reevaluated today on 05/11/2020, patient is basically about the same. Remains on BiPAP. Her FiO2 is still at 90%, and her O2 saturation is in the low 90s. Patient is on IPAP of 10 and EPAP of 5, seems to be very comfortable. CT angiogram of the chest yesterday showed bilateral interstitial infiltrates, no evidence of thromboembolic disease/pulmonary embolism. WBC count is 2.2 hemoglobin is 11.6. A left lites are normal renal profile is normal clinically the patient is fairly comfortable, however she is still requiring significant high FiO2. Reevaluated today on 05/12/2020, patient is feeling much better today, breathing a lot easier, she is now on 80% FiO2 remains on BiPAP with IPAP of 10 and EPAP of 5. But her FiO2 was cut down to 80%, and I will cut it down further to 70% and her O2 saturation seems to be significantly improved. Patient feels that she felt much better after the Lasix was given yesterday. I will recommend another dose of Lasix to be given today. Her CT angiogram of the chest yesterday questioned mild interstitial edema. However I felt it was all related to her underlying Covid 19 pneumonitis. Nonetheless Lasix was given, and clinically the patient felt better. Labs today were all reviewed she had WBC count of 2.3 hemoglobin 12.4 lites are normal renal profile remains normal. Objective - Vital Signs Vital signs: Vital Signs Temp 99.2 F 05/12/20 12:00 Pulse 70 05/12/20 12:00 Resp 22 05/12/20 12:00 BP 136/76 05/12/20 12:00 Pulse Ox 100 05/12/20 12:00 Intake & Output 05/11/20 05/12/20 05/12/20 18:59 06:59 18:59 Intake Total 930 290 Output Total 400 Balance 930 -110 Weight 139.5 kg 143 kg Intake: Intake, IV Titration 60 40 Amount Sodium Chloride 0.9% 1, 60 40 000 ml @ 20 mls/hr IV . Q24H [facility] Rx#:[id number] Oral 870 250 Output: Urine 400 Other: # Voids 1 1 - Exam Physical Exam: Revealed a 59-year-old female on BiPAP, 80% FiO2, IPAP of 10 EPAP of 5. Head: Is atraumatic normocephalic. HEENT:[Neck is supple.] [No neck masses.] [No thyromegaly.] [No JVD.] Chest: [Symmetrical chest expansion, crackles at the bases bilaterally. Cardiac Exam: [Normal S1 and S2, no S3 gallop, no murmur.] Abdomen: [Soft, nontender, no megaly, no rebound, no guarding, normal bowel sounds.] Extremities: [No clubbing, no edema, no cyanosis.] Neurological Exam: [No focal neurologic deficit.] Alert and oriented 3. Psychiatric: Normal mood affect and normal mental status examination. - Labs CBC & Chem 7: 05/12/20 08:42 05/12/20 08:42 Labs: Abnormal Lab Results - Last 24 Hours (Table) 05/11/20 05/11/20 05/12/20 Range/Units 17:02 20:14 06:57 WBC (3.8-10.6) k/uL RDW (11.5-15.5) % Plt Count (150-450) k/uL Lymphocytes # (1.0-4.8) k/uL Sodium (137-145) mmol/L Carbon Dioxide (22-30) mmol/L BUN (7-17) mg/dL Glucose (74-99) mg/dL POC Glucose (mg/dL) 199 H 165 H 159 H (75-99) mg/dL 05/12/20 05/12/20 05/12/20 Range/Units 08:42 08:42 11:51 WBC 2.3 L (3.8-10.6) k/uL RDW 16.0 H (11.5-15.5) % Plt Count 111 L (150-450) k/uL Lymphocytes # 0.3 L (1.0-4.8) k/uL Sodium 136 L (137-145) mmol/L Carbon Dioxide 33 H (22-30) mmol/L BUN 21 H (7-17) mg/dL Glucose 148 H (74-99) mg/dL POC Glucose (mg/dL) 138 H (75-99) mg/dL Assessment and Plan Assessment: 1 acute Covid 19 related pneumonia, symptoms started on 04/28/2020, diagnosed to be positive on 04/29/2020 2 acute hypoxic respiratory failure secondary to above 3 fever secondary to above, resolved. 4 leukopenia, lymphopenia and thrombocytopenia secondary to above, white cell count remains low 5 mild elevation of inflammatory markers secondary to Covid 19 infection 6 obesity with a BMI of 47.0 7 diabetes mellitus type 2 8 hypertension 9 hyperlipidemia 10 hypothyroidism Recommendation: We give the patient another therapeutic trial of Lasix 40 mg IV push today. Since she had clinical improvement with it yesterday. Continue present supportive care measures. Continue BiPAP. Continue FiO2 titration, she is now on 80% and I will cut it down to 70% Continue the Covid 19 cocktail. Patient received convalescent plasma, received actemra, and finished REM. Continue Solu-Medrol, Lovenox and vitamin supplements. Prognosis remains guarded, we'll continue to follow Patient is not quite ready for any discharge planning at this point. Time with Patient: Less than 30
[2020-05-12 17:39] LABS: Glucose,Whole Blood 144 mg/dL (75-99)
[2020-05-12] MEDS: SODIUM CHLORIDE 0.9% 1,000 ML IV SCH (18:14)
--- NOTE | 2020-05-12 19:14 | PN ---
PROGRESS NOTE DATE OF SERVICE: 05/12/2020 REASON FOR FOLLOWUP: COVID-19 pneumonia. INTERVAL HISTORY: Patient is currently afebrile. Patient is feeling better. Still on the BiPAP. FiO2 is down to 70%. The patient denies any chest pain. Minimal cough. No sputum production. No nausea, no abdominal pain. Diarrhea has slowed down. PHYSICAL EXAMINATION: Blood pressure 135/74, pulse of 64, temperature 98.9. She is 94% on 70% FiO2. General description is a middle-aged female lying in bed in no distress. Respiratory system: Unlabored breathing, decreased intensity of breath sounds. No wheeze. Heart S1, S2. Regular rate and rhythm. Abdomen soft, no tenderness. LABS: Hemoglobin is 12.4, white count 2.3, BUN of 21, creatinine 0.72. Blood culture has been negative. DIAGNOSTIC IMPRESSION AND PLAN: Patient with acute COVID-19 pneumonia with acute respiratory failure in this patient currently on Solu-Medrol, Lovenox, zinc and ascorbic acid to continue along with respiratory support and monitor clinical course closely. MMODL / IJN: [id number] /
[2020-05-12 19:55] LABS: Glucose,Whole Blood 162 mg/dL (75-99)
[2020-05-12] MEDS: BACLOFEN 10 MG TAB PO SCH (20:09)
[2020-05-12] MEDS: INSULIN DETEMIR (LEVEMIR) 100 UNIT/ML SYR SQ SCH (20:09)
[2020-05-13] MEDS: LEVOTHYROXINE 75 MCG TAB PO SCH (06:14)
[2020-05-13] MEDS: GLIMEPIRIDE 4 MG TAB PO SCH (06:14)
[2020-05-13] MEDS: methylPREDNISolone SOD SUCCI 125 MG/2 ML VIAL IV SCH ×4 (06:15→23:48)
[2020-05-13 07:31] LABS: Glucose,Whole Blood 181 mg/dL (75-99)
[2020-05-13 08:06] LABS: Basophils % (A) 0 %; Eosinophils % (A) 0 %; HCT 35.2 % (34.0-46.0); HGB 11.7 gm/dL (11.4-16.0); Lymphocytes # (A) 0.2 k/uL (1.0-4.8); Lymphocytes % (A) 11 %; MCH 28.8 pg (25.0-35.0); MCHC 33.4 g/dL (31.0-37.0); MCV 86.3 fL (80.0-100.0); Mean Platelet Volume 7.9; Monocytes # (A) 0.2 k/uL (0-1.0); Monocytes % (A) 7 %; Neutrophils # (A) 1.6 k/uL (1.3-7.7); Neutrophils % (A) 80 %; RBC 4.08 m/uL (3.80-5.40); RDW 15.9 % (11.5-15.5)
[2020-05-13 08:33] LABS: African American GFR (CKD) >90 (>60 ml/min/1.73 sqM); Anion Gap 2 mmol/L; Blood Urea Nitrogen 19 mg/dL (7-17); Calcium 8.3 mg/dL (8.4-10.2); Carbon Dioxide 33 mmol/L (22-30); Chloride 101 mmol/L (98-107); Glucose 150 mg/dL (74-99); Non-African American GFR(CKD) >90 (>60 ml/min/1.73 sqM); Potassium 3.4 mmol/L (3.5-5.1); Sodium 136 mmol/L (137-145)
[2020-05-13] MEDS: MAG HYDROX/AL HYDROX/SIMETH 30 ML CUP PO SCH ×4 (08:51→20:51)
[2020-05-13] MEDS: ZINC SULFATE 220 MG CAP PO SCH (08:52)
[2020-05-13] MEDS: CHOLECALCIFEROL 25 MCG (1000 IU) TABLET PO SCH (08:52)
[2020-05-13] MEDS: GABAPENTIN 300 MG CAP PO SCH ×4 (08:53→20:50)
[2020-05-13] MEDS: PANTOPRAZOLE 40 MG/10 ML VIAL IVP SCH ×2 (08:53→20:49)
[2020-05-13] MEDS: ASCORBIC ACID 500 MG TAB PO SCH (08:53)
[2020-05-13] MEDS: ESCITALOPRAM 20 MG TAB PO SCH (08:53)
[2020-05-13] MEDS: lisinopriL 10 MG TAB PO SCH (08:53)
[2020-05-13] MEDS: allopurinoL 100 MG TAB PO SCH (08:53)
[2020-05-13] MEDS: FERROUS SULFATE 325 MG TAB PO SCH (08:53)
[2020-05-13] MEDS: ATORVASTATIN 40 MG TAB PO SCH (08:53)
[2020-05-13] MEDS: INSULIN ASPART (NovoLOG) 100 UNIT/ML VIAL SQ SCH ×7 (08:54→20:50)
[2020-05-13] MEDS: ENOXAPARIN 40 MG/0.4 ML SYRINGE SQ SCH (08:58)
[2020-05-13 09:11] LABS: Platelet Count 94 k/uL (150-450)
[2020-05-13 12:41] LABS: Glucose,Whole Blood 155 mg/dL (75-99)
[2020-05-13 15:51] LABS: Hemoglobin A1C 6.8 % (4.0-6.0)
[2020-05-13] MEDS ORDERED: Potassium Replacement Protocol 1 EACH MISC MISCELLANE PRN (17:21)
[2020-05-13 17:24] LABS: Glucose,Whole Blood 148 mg/dL (75-99)
--- NOTE | 2020-05-13 17:26 | P.PN ---
Subjective Progress Note Date: 05/13/20 [id number] female admitted with acute hypoxic respiratory failure secondary to covid- 19 pneumonia, hypertension, diabetes mellitus, obesity and multiple other medical issues. Oxygen requirements worsened, requiring BiPAP. Chest x-ray reporting bilateral interstitial and patchy airspace opacities remain ,mild cardiomegaly. Denies chest pain, palpitations, reports chest soreness from nonproductive cough. Received a dose of Actemra, maintained on Remdesevir, IV steroids , antibiotics and multivitamin supplements. Afebrile, LDH and C- reactive protein trending down. 05/07/2020 Maintained on Remdesevir/covid regimine. Continues to require BiPAP 100% to maintain O2 sats in the high 80s to 90s. Complains of anxiety regarding mask. Deep breaths trigger cough. Afebrile. Labs pending. Denies chest pain, palpitations. 05/08/2020 sitting up at side of bed, continues to require 100% BiPAP. Ma intained on Covid regimen including Remdesevir. T-max 99.1. Occasional nonproductive cough. Denies chest pain, 05/09/20 unable to tolerate BiPAP decreased to 90% with O2 sats decreased to 84%, currently back up on 100% BiPAP, maintaining O2 sats in the 90s on 100s. T-max 99.1, labs pending. Anxiety controlled. Maintained on Covid regimen, completed 5 doses of Remdesevir. Labs pending. 05/10/2020 maintaining O2 sats in the low 90s on 95% BiPAP. Continues on IV steroids, vitamin C, vitamin D, zinc. Afebrile. Reports less coughing. Denies chest pain, palpitations. 05/13/2020 patient feeling better, reports she has " turned the corner". Maintaining O2 sats in the 90s on BiPAP 70%. Minimal nonproductive cough. Denies chest pain, palpitations. Afebrile, Received Lasix yesterday, potassium 3.4.,creatinine 0.69. Objective - Vital Signs Vital signs: Vital Signs Temp 98.3 F 05/13/20 08:00 Pulse 70 05/13/20 12:00 Resp 20 05/13/20 04:00 BP 113/55 05/13/20 12:00 Pulse Ox 89 L 05/13/20 12:00 Intake & Output 05/12/20 05/13/20 05/13/20 18:59 06:59 18:59 Intake Total 415 458 Output Total 700 450 750 Balance -285 -450 -292 Weight 139 kg Intake: Intake, IV Titration 40 Amount Sodium Chloride 0.9% 1, 40 000 ml @ 20 mls/hr IV . Q24H [facility] Rx#:[id number] Oral 375 458 Output: Urine 700 450 750 Other: Voiding Method Bedside Commode # Voids 1 - Exam PHYSICAL EXAM: VITAL SIGNS: [As above] GENERAL: Alert and oriented 3, Sitting up in bed wearing BiPAP HEENT: Conjunctivae normal. eyes normal. CARDIOVASCULAR: S1, S2 regular.No murmur RESPIRATION: Breath sounds essentially clear, diminished in the bases. ABDOMEN: Soft, nontender . Nondistended. No guarding, no masses palpable. Positive Bowel sounds. LEGS: No edema. no swelling, no cyanosis, no clubbing. NERVOUS SYSTEM: Cranial N 2-12 grossly normal.No focal deficits. Skin: Warm and dry, no rash - Labs CBC & Chem 7: 05/13/20 07:23 05/13/20 07:23 Labs: Abnormal Lab Results - Last 24 Hours (Table) 05/12/20 05/12/20 05/13/20 Range/Units 17:19 19:54 07:23 WBC 2.0 L (3.8-10.6) k/uL RDW 15.9 H (11.5-15.5) % Plt Count 94 L (150-450) k/uL Lymphocytes # 0.2 L (1.0-4.8) k/uL Sodium (137-145) mmol/L Potassium (3.5-5.1) mmol/L Carbon Dioxide (22-30) mmol/L BUN (7-17) mg/dL Glucose (74-99) mg/dL POC Glucose (mg/dL) 144 H 162 H (75-99) mg/dL Hemoglobin A1c (4.0-6.0) % Calcium (8.4-10.2) mg/dL 05/13/20 05/13/20 05/13/20 Range/Units 07:23 07:23 07:29 WBC (3.8-10.6) k/uL RDW (11.5-15.5) % Plt Count (150-450) k/uL Lymphocytes # (1.0-4.8) k/uL Sodium 136 L (137-145) mmol/L Potassium 3.4 L (3.5-5.1) mmol/L Carbon Dioxide 33 H (22-30) mmol/L BUN 19 H (7-17) mg/dL Glucose 150 H (74-99) mg/dL POC Glucose (mg/dL) 181 H (75-99) mg/dL Hemoglobin A1c 6.8 H (4.0-6.0) % Calcium 8.3 L (8.4-10.2) mg/dL 05/13/20 Range/Units 12:39 WBC (3.8-10.6) k/uL RDW (11.5-15.5) % Plt Count (150-450) k/uL Lymphocytes # (1.0-4.8) k/uL Sodium (137-145) mmol/L Potassium (3.5-5.1) mmol/L Carbon Dioxide (22-30) mmol/L BUN (7-17) mg/dL Glucose (74-99) mg/dL POC Glucose (mg/dL) 155 H (75-99) mg/dL Hemoglobin A1c (4.0-6.0) % Calcium (8.4-10.2) mg/dL Assessment and Plan Assessment: Acute Covid-19 pneumonia, status post convalescent plasma, received tocilizumab, completed Remdesevir Acute hypoxic respiratory failure secondary to the above,BiPAP dependent. Acute anxiety secondary to the above and BiPAP mask, improved leukopenia, lymphopenia and thrombocytopenia secondary to above Diabetes mellitus type 2 Hypertension Hyperlipidemia Hypothyroidism Morbid obesity, BMI 47 Plan: Continue on current medication regimen, monitoring and symptomatic treatment. Covid regimen, Lovenox. Follow closely with pulmonary. Prognosis guarded given multiple complex medical issues. The impression and plan of care has been dictated as directed. : I performed a history and examination of this patient, discussed the same with the dictator. I agree with the dictator's note ,documented as a scribe. Any additional findings or plans will be noted.
[2020-05-13] MEDS: SODIUM CHLORIDE 0.9% 1,000 ML IV SCH (17:30)
--- NOTE | 2020-05-13 18:29 | P.PN ---
Subjective Progress Note Date: 05/13/20 Principal diagnosis: Acute hypoxemic respiratory failure. Patient was reevaluated today on 05/09/2020, remains on BiPAP, she is on 100%, O2 sats is 94%. Surprisingly, the patient seems to be doing well in spite of her significant O2 requirement and BiPAP. Patient received REM, she also received convalescent plasma and ACTEMRA. And so far does not seem to be making that significant turnaround and significant clinical improvement. CBC and basic metabolic profile are normal except for WBC count is 2.0 today. Patient was reevaluated today on 05/10/2020, still requiring significant amount of FiO2, she remains on BiPAP at 90% FiO2, she is on IPAP of 10 and EPAP of 5, and O2 saturation remains marginal. Clinically however the patient feels better breathing easier, and have d-dimer is not that significantly elevated but it is nonetheless abnormal. Hence I recommended a CT angiogram of the chest to be done today. Renal profile is normal. CBC continues to show leukopenia with WBC count of 2.0. Electrolytes are normal. Patient was reevaluated today on 05/11/2020, patient is basically about the same. Remains on BiPAP. Her FiO2 is still at 90%, and her O2 saturation is in the low 90s. Patient is on IPAP of 10 and EPAP of 5, seems to be very comfortable. CT angiogram of the chest yesterday showed bilateral interstitial infiltrates, no evidence of thromboembolic disease/pulmonary embolism. WBC count is 2.2 hemoglobin is 11.6. A left lites are normal renal profile is normal clinically the patient is fairly comfortable, however she is still requiring significant high FiO2. Reevaluated today on 05/12/2020, patient is feeling much better today, breathing a lot easier, she is now on 80% FiO2 remains on BiPAP with IPAP of 10 and EPAP of 5. But her FiO2 was cut down to 80%, and I will cut it down further to 70% and her O2 saturation seems to be significantly improved. Patient feels that she felt much better after the Lasix was given yesterday. I will recommend another dose of Lasix to be given today. Her CT angiogram of the chest yesterday questioned mild interstitial edema. However I felt it was all related to her underlying Covid 19 pneumonitis. Nonetheless Lasix was given, and clinically the patient felt better. Labs today were all reviewed she had WBC count of 2.3 hemoglobin 12.4 lites are normal renal profile remains normal. Progress note dated 05/13/2020. Currently, the patient remains on BiPAP, at 70%. She's feeling better today. She feels less short of breath. Her BiPAP settings are IPAP 10, and EPAP 5. I did tell the patient to move around when she is lying in bed. She should lie down on her right side, left side, supine, and if possible, try to prone herself. Current laboratory data includes a white count of 2, hemoglobin 11.7, hematocrit 35.2, platelet count 94,000. Sodium is 136, potassium 3.4, chlorides 101, CO2 33, anion gap 2, BUN [address], [address] angiogram on May 10 showed no evidence of pulmonary embolism, but did show moderately severe pulmonary interstitial edema/infiltrates. Objective - Vital Signs Vital signs: Vital Signs Temp 98.3 F 05/13/20 08:00 Pulse 62 05/13/20 16:00 Resp 20 05/13/20 04:00 BP 119/65 05/13/20 16:00 Pulse Ox 90 L 05/13/20 16:00 Intake & Output 05/12/20 05/13/20 05/13/20 18:59 06:59 18:59 Intake Total 415 458 Output Total 700 450 750 Balance -285 -450 -292 Weight 139 kg Intake: Intake, IV Titration 40 Amount Sodium Chloride 0.9% 1, 40 000 ml @ 20 mls/hr IV . Q24H [facility] Rx#:[id number] Oral 375 458 Output: Urine 700 450 750 Other: Voiding Method Bedside Commode # Voids 1 - Exam No acute distress, oriented 3. Patient currently on BiPAP. Laying in bed. HEENT examination is grossly unremarkable. Neck supple. Full range of motion. No adenopathy thyromegaly or neck vein distention. Cardiovascular examination reveals regular rhythm rate. S1-S2 normal. No S3 or S4. No discernible murmur noted. Heart sounds are distant. Heart rate 62 bpm. Lungs reveal bilateral coarse rhonchi and crackles. Breath sounds equal bila terally. There are no wheezes. Abdomen soft bowel sounds are heard. No masses or tenderness. Extremities are intact. No cyanosis clubbing or edema. Skin is without rash or lesion. Neurologic examination is brief but nonfocal. - Labs CBC & Chem 7: 05/13/20 07:23 05/13/20 07:23 Labs: Abnormal Lab Results - Last 24 Hours (Table) 05/12/20 05/13/20 05/13/20 Range/Units 19:54 07:23 07:23 WBC 2.0 L (3.8-10.6) k/uL RDW 15.9 H (11.5-15.5) % Plt Count 94 L (150-450) k/uL Lymphocytes # 0.2 L (1.0-4.8) k/uL Sodium 136 L (137-145) mmol/L Potassium 3.4 L (3.5-5.1) mmol/L Carbon Dioxide 33 H (22-30) mmol/L BUN 19 H (7-17) mg/dL Glucose 150 H (74-99) mg/dL POC Glucose (mg/dL) 162 H (75-99) mg/dL Hemoglobin A1c (4.0-6.0) % Calcium 8.3 L (8.4-10.2) mg/dL 05/13/20 05/13/20 05/13/20 Range/Units 07:23 07:29 12:39 WBC (3.8-10.6) k/uL RDW (11.5-15.5) % Plt Count (150-450) k/uL Lymphocytes # (1.0-4.8) k/uL Sodium (137-145) mmol/L Potassium (3.5-5.1) mmol/L Carbon Dioxide (22-30) mmol/L BUN (7-17) mg/dL Glucose (74-99) mg/dL POC Glucose (mg/dL) 181 H 155 H (75-99) mg/dL Hemoglobin A1c 6.8 H (4.0-6.0) % Calcium (8.4-10.2) mg/dL 05/13/20 Range/Units 17:23 WBC (3.8-10.6) k/uL RDW (11.5-15.5) % Plt Count (150-450) k/uL Lymphocytes # (1.0-4.8) k/uL Sodium (137-145) mmol/L Potassium (3.5-5.1) mmol/L Carbon Dioxide (22-30) mmol/L BUN (7-17) mg/dL Glucose (74-99) mg/dL POC Glucose (mg/dL) 148 H (75-99) mg/dL Hemoglobin A1c (4.0-6.0) % Calcium (8.4-10.2) mg/dL Assessment and Plan Assessment: Acute COVID 19 pneumonia, with hypoxemic respiratory failure. Obesity. Diabetes mellitus, type II. History of hypertension. Hyperlipidemia by history. Hypothyroidism. Plan: Plan dated 05/13/2020. The patient remains on BiPAP. We'll continue to titrate the FiO2 down. The patient continues on the appropriate vitamins according vitamin C, vitamin D3, and zinc. In addition, the patient did receive convalescent plasma, REM, and TOCI. The patient also continues on Lovenox, and Solu-Medrol. We will continue to follow. Prognosis is guarded. We'll continue to make recommendations were appropriate. The patient appears to be in good spirits which is a positive thing. Time with Patient: Less than 30
[2020-05-13 20:16] LABS: Glucose,Whole Blood 234 mg/dL (75-99)
[2020-05-13] MEDS: POTASSIUM CHLORIDE ER 20 MEQ TAB.ER PO SCH ×3 (20:41→21:52)
[2020-05-13] MEDS: BACLOFEN 10 MG TAB PO SCH (20:49)
[2020-05-13] MEDS: INSULIN DETEMIR (LEVEMIR) 100 UNIT/ML SYR SQ SCH (20:50)
--- NOTE | 2020-05-13 23:27 | PN ---
PROGRESS NOTE DATE OF SERVICE: 05/13/2020 REASON FOR FOLLOWUP: COVID-19 infection. INTERVAL HISTORY: Patient is currently afebrile. Patient is breathing comfortably. The patient denies having any chest pain. No shortness of breath or cough. No abdominal pain or diarrhea. PHYSICAL EXAMINATION: Blood pressure 130/55, pulse of 70, temperature 98.3. She is 92% on BiPAP. General description is a middle-aged female lying in bed in no distress. Respiratory system: Unlabored breathing, decreased intensity of breath sounds. No wheeze. HEART: S1, S2. Regular rate and rhythm. ABDOMEN: Soft, no tenderness. EXTREMITIES: No edema of the feet. LABS: Hemoglobin 11.7, white count 2.0, BUN of 19 and creatinine 0.69. DIAGNOSTIC IMPRESSION AND PLAN: Patient with acute respiratory failure, multifactorial in this patient who did have Covid 19 infection. The patient is currently on Solu-Medrol and zinc, ascorbic acid and Lovenox to continue along with respiratory support and monitor clinical course closely. MMODL / IJN: [id number] /
[2020-05-13 23:47] LABS: African American GFR (CKD) >90 (>60 ml/min/1.73 sqM); Anion Gap 4 mmol/L; Blood Urea Nitrogen 17 mg/dL (7-17); Calcium 8.2 mg/dL (8.4-10.2); Carbon Dioxide 30 mmol/L (22-30); Chloride 99 mmol/L (98-107); Glucose 207 mg/dL (74-99); Non-African American GFR(CKD) >90 (>60 ml/min/1.73 sqM); Potassium 3.5 mmol/L (3.5-5.1); Sodium 133 mmol/L (137-145)
[2020-05-14] MEDS: POTASSIUM CHLORIDE ER 20 MEQ TAB.ER PO SCH ×2 (02:11→03:30)
[2020-05-14] MEDS: ONDANSETRON 4 MG/2 ML VIAL IVP PRN (04:03)
[2020-05-14] MEDS: methylPREDNISolone SOD SUCCI 125 MG/2 ML VIAL IV SCH ×4 (05:48→23:53)
[2020-05-14] MEDS: LEVOTHYROXINE 75 MCG TAB PO SCH (05:49)
[2020-05-14 07:08] LABS: Glucose,Whole Blood 172 mg/dL (75-99)
[2020-05-14] MEDS: INSULIN ASPART (NovoLOG) 100 UNIT/ML VIAL SQ SCH ×7 (07:10→20:48)
[2020-05-14] MEDS: metFORMIN 500 MG TAB PO SCH ×3 (07:11→17:19)
[2020-05-14] MEDS: GLIMEPIRIDE 4 MG TAB PO SCH (07:11)
[2020-05-14] MEDS: ZINC SULFATE 220 MG CAP PO SCH (08:42)
[2020-05-14] MEDS: allopurinoL 100 MG TAB PO SCH (08:42)
[2020-05-14] MEDS: lisinopriL 10 MG TAB PO SCH (08:42)
[2020-05-14] MEDS: ATORVASTATIN 40 MG TAB PO SCH (08:42)
[2020-05-14] MEDS: ESCITALOPRAM 20 MG TAB PO SCH (08:42)
[2020-05-14] MEDS: FERROUS SULFATE 325 MG TAB PO SCH (08:42)
[2020-05-14] MEDS: PANTOPRAZOLE 40 MG/10 ML VIAL IVP SCH ×2 (08:43→20:48)
[2020-05-14] MEDS: GABAPENTIN 300 MG CAP PO SCH ×4 (08:43→20:48)
[2020-05-14] MEDS: MAG HYDROX/AL HYDROX/SIMETH 30 ML CUP PO SCH ×4 (08:43→20:48)
[2020-05-14] MEDS: CHOLECALCIFEROL 25 MCG (1000 IU) TABLET PO SCH (08:43)
[2020-05-14] MEDS: ASCORBIC ACID 500 MG TAB PO SCH (08:43)
[2020-05-14] MEDS: ENOXAPARIN 40 MG/0.4 ML SYRINGE SQ SCH (08:45)
[2020-05-14] MEDS ORDERED: FUROSEMIDE 10 MG/ML 4 ML VIAL IV STA (09:51)
[2020-05-14 11:50] LABS: Glucose,Whole Blood 159 mg/dL (75-99)
--- NOTE | 2020-05-14 16:24 | P.PN ---
Subjective Progress Note Date: 05/14/20 [id number] female admitted with acute hypoxic respiratory failure secondary to covid- 19 pneumonia, hypertension, diabetes mellitus, obesity and multiple other medical issues. Oxygen requirements worsened, requiring BiPAP. Chest x-ray reporting bilateral interstitial and patchy airspace opacities remain ,mild cardiomegaly. Denies chest pain, palpitations, reports chest soreness from nonproductive cough. Received a dose of Actemra, maintained on Remdesevir, IV steroids , antibiotics and multivitamin supplements. Afebrile, LDH and C- reactive protein trending down. 05/07/2020 Maintained on Remdesevir/covid regimine. Continues to require BiPAP 100% to maintain O2 sats in the high 80s to 90s. Complains of anxiety regarding mask. Deep breaths trigger cough. Afebrile. Labs pending. Denies chest pain, palpitations. 05/08/2020 sitting up at side of bed, continues to require 100% BiPAP. Ma intained on Covid regimen including Remdesevir. T-max 99.1. Occasional nonproductive cough. Denies chest pain, 05/09/20 unable to tolerate BiPAP decreased to 90% with O2 sats decreased to 84%, currently back up on 100% BiPAP, maintaining O2 sats in the 90s on 100s. T-max 99.1, labs pending. Anxiety controlled. Maintained on Covid regimen, completed 5 doses of Remdesevir. Labs pending. 05/10/2020 maintaining O2 sats in the low 90s on 95% BiPAP. Continues on IV steroids, vitamin C, vitamin D, zinc. Afebrile. Reports less coughing. Denies chest pain, palpitations. 05/13/2020 patient feeling better, reports she has " turned the corner". Maintaining O2 sats in the 90s on BiPAP 70%. Minimal nonproductive cough. Denies chest pain, palpitations. Afebrile, Received Lasix yesterday, potassium 3.4.,creatinine 0.69. 05/14/2020 continues feeling better, maintaining O2 sats in the 90s on BiPAP 70%. Occasional nonproductive cough. Mild pedal edema. Denies chest pain, palpitations. Objective - Vital Signs Vital signs: Vital Signs Temp 98.8 F 05/14/20 12:30 Pulse 66 05/14/20 12:30 Resp 20 05/14/20 12:30 BP 128/58 05/14/20 12:30 Pulse Ox 90 L 05/14/20 12:30 Intake & Output 05/13/20 05/14/20 05/14/20 18:59 06:59 18:59 Intake Total 458 240 525 Output Total 750 600 Balance -292 -360 525 Weight 144 kg 144 kg Intake: Intake, IV Titration 160 Amount Sodium Chloride 0.9% 1, 160 000 ml @ 20 mls/hr IV . Q24H [facility] Rx#:[id number] Oral 458 240 365 Output: Urine 750 600 Other: Voiding Method Bedside Commode Bedside Commode - Exam PHYSICAL EXAM: VITAL SIGNS: [As above] GENERAL: Alert and oriented 3, Sitting up in bed wearing BiPAP HEENT: Conjunctivae normal. eyes normal. CARDIOVASCULAR: S1, S2 regular.No murmur RESPIRATION: Breath sounds essentially clear, diminished in the bases. ABDOMEN: Soft, nontender . Nondistended. No guarding, no masses palpable. Positive Bowel sounds. LEGS: Positive mild edema, no cyanosis, no clubbing. NERVOUS SYSTEM: Cranial N 2-12 grossly normal.No focal deficits. Skin: Warm and dry, no rash - Labs CBC & Chem 7: 05/13/20 07:23 05/14/20 07:42 Labs: Abnormal Lab Results - Last 24 Hours (Table) 05/13/20 05/13/20 05/13/20 Range/Units 17:23 20:14 22:46 Sodium 133 L (137-145) mmol/L Glucose 207 H (74-99) mg/dL POC Glucose (mg/dL) 148 H 234 H (75-99) mg/dL Calcium 8.2 L (8.4-10.2) mg/dL 05/14/20 05/14/20 Range/Units 07:06 11:48 Sodium (137-145) mmol/L Glucose (74-99) mg/dL POC Glucose (mg/dL) 172 H 159 H (75-99) mg/dL Calcium (8.4-10.2) mg/dL Assessment and Plan Assessment: Acute Covid-19 pneumonia, status post convalescent plasma, received tocilizumab, completed Remdesevir Acute hypoxic respiratory failure secondary to the above,BiPAP dependent. Acute anxiety secondary to the above and BiPAP mask, improved leukopenia, lymphopenia and thrombocytopenia secondary to above Diabetes mellitus type 2 Hypertension Hyperlipidemia Hypothyroidism Morbid obesity, BMI 47 Plan: Continue on current medication regimen, monitoring and symptomatic treatment. Covid regimen, Lovenox. Lasix 40 mg IV push 1 with BMP tomorrow morning ordered. Follow closely with pulmonary. Prognosis guarded given multiple complex medical issues. The impression and plan of care has been dictated as directed. : I performed a history and examination of this patient, discussed the same with the dictator. I agree with the dictator's note ,documented as a scribe. Any additional findings or plans will be noted.
[2020-05-14 16:41] LABS: Glucose,Whole Blood 216 mg/dL (75-99)
--- NOTE | 2020-05-14 17:53 | P.PN ---
Subjective Progress Note Date: 05/14/20 Principal diagnosis: Acute hypoxemic respiratory failure. Patient was reevaluated today on 05/09/2020, remains on BiPAP, she is on 100%, O2 sats is 94%. Surprisingly, the patient seems to be doing well in spite of her significant O2 requirement and BiPAP. Patient received REM, she also received convalescent plasma and ACTEMRA. And so far does not seem to be making that significant turnaround and significant clinical improvement. CBC and basic metabolic profile are normal except for WBC count is 2.0 today. Patient was reevaluated today on 05/10/2020, still requiring significant amount of FiO2, she remains on BiPAP at 90% FiO2, she is on IPAP of 10 and EPAP of 5, and O2 saturation remains marginal. Clinically however the patient feels better breathing easier, and have d-dimer is not that significantly elevated but it is nonetheless abnormal. Hence I recommended a CT angiogram of the chest to be done today. Renal profile is normal. CBC continues to show leukopenia with WBC count of 2.0. Electrolytes are normal. Patient was reevaluated today on 05/11/2020, patient is basically about the same. Remains on BiPAP. Her FiO2 is still at 90%, and her O2 saturation is in the low 90s. Patient is on IPAP of 10 and EPAP of 5, seems to be very comfortable. CT angiogram of the chest yesterday showed bilateral interstitial infiltrates, no evidence of thromboembolic disease/pulmonary embolism. WBC count is 2.2 hemoglobin is 11.6. A left lites are normal renal profile is normal clinically the patient is fairly comfortable, however she is still requiring significant high FiO2. Reevaluated today on 05/12/2020, patient is feeling much better today, breathing a lot easier, she is now on 80% FiO2 remains on BiPAP with IPAP of 10 and EPAP of 5. But her FiO2 was cut down to 80%, and I will cut it down further to 70% and her O2 saturation seems to be significantly improved. Patient feels that she felt much better after the Lasix was given yesterday. I will recommend another dose of Lasix to be given today. Her CT angiogram of the chest yesterday questioned mild interstitial edema. However I felt it was all related to her underlying Covid 19 pneumonitis. Nonetheless Lasix was given, and clinically the patient felt better. Labs today were all reviewed she had WBC count of 2.3 hemoglobin 12.4 lites are normal renal profile remains normal. Progress note dated 05/13/2020. Currently, the patient remains on BiPAP, at 70%. She's feeling better today. She feels less short of breath. Her BiPAP settings are IPAP 10, and EPAP 5. I did tell the patient to move around when she is lying in bed. She should lie down on her right side, left side, supine, and if possible, try to prone herself. Current laboratory data includes a white count of 2, hemoglobin 11.7, hematocrit 35.2, platelet count 94,000. Sodium is 136, potassium 3.4, chlorides 101, CO2 33, anion gap 2, BUN [address], [address] angiogram on May 10 showed no evidence of pulmonary embolism, but did show moderately severe pulmonary interstitial edema/infiltrates. Progress note dated 05/14/2020. The patient remains on BiPAP at 70%. She feels much improved. Her IPAP of 10 and EPAP is fine. She's feeling much less short of breath. I did tell her to move around in bed, right side down, left side down, supine, and even on her stomach if she can. No new labs today to look at. No recent chest x-rays to evaluate either. Medications are appropriate at this time. CT angiogram from May 10 is reviewed. Objective - Vital Signs Vital signs: Vital Signs Temp 97.1 F L 05/14/20 17:00 Pulse 77 05/14/20 17:00 Resp 20 05/14/20 17:00 BP 118/60 05/14/20 17:00 Pulse Ox 92 L 05/14/20 17:00 Intake & Output 05/13/20 05/14/20 05/14/20 18:59 06:59 18:59 Intake Total 458 240 525 Output Total 750 600 Balance -292 -360 525 Weight 144 kg 144 kg Intake: Intake, IV Titration 160 Amount Sodium Chloride 0.9% 1, 160 000 ml @ 20 mls/hr IV . Q24H [facility] Rx#:[id number] Oral 458 240 365 Output: Urine 750 600 Other: Voiding Method Bedside Commode Bedside Commode - Exam No acute distress, oriented 3. Patient currently on BiPAP. Laying in bed. Saturations 92%. HEENT examination is grossly unremarkable. Neck supple. Full range of motion. No adenopathy thyromegaly or neck vein distention. Cardiovascular examination reveals regular rhythm rate. S1-S2 normal. No S3 or S4. No discernible murmur noted. Heart sounds are distant. Heart rate 77 bpm. Lungs reveal bilateral coarse rhonchi and crackles. Breath sounds equal bilaterally. There are no wheezes. Abdomen soft bowel sounds are heard. No masses or tenderness. Extremities are intact. No cyanosis clubbing or edema. Skin is without rash or lesion. Neurologic examination is brief but nonfocal. - Labs CBC & Chem 7: 05/13/20 07:23 05/14/20 07:42 Labs: Abnormal Lab Results - Last 24 Hours (Table) 05/13/20 05/13/20 05/14/20 Range/Units 20:14 22:46 07:06 Sodium 133 L (137-145) mmol/L Glucose 207 H (74-99) mg/dL POC Glucose (mg/dL) 234 H 172 H (75-99) mg/dL Calcium 8.2 L (8.4-10.2) mg/dL 05/14/20 05/14/20 Range/Units 11:48 16:40 Sodium (137-145) mmol/L Glucose (74-99) mg/dL POC Glucose (mg/dL) 159 H 216 H (75-99) mg/dL Calcium (8.4-10.2) mg/dL Assessment and Plan Assessment: Acute COVID 19 pneumonia, with hypoxemic respiratory failure. Obesity. Diabetes mellitus, type II. History of hypertension. Hyperlipidemia by history. Hypothyroidism. Plan: Plan dated 05/13/2020. The patient remains on BiPAP. We'll continue to titrate the FiO2 down. The patient continues on the appropriate vitamins according vitamin C, vitamin D3, and zinc. In addition, the patient did receive convalescent plasma, REM, and TOCI. The patient also continues on Lovenox, and Solu-Medrol. We will continue to follow. Prognosis is guarded. We'll continue to make recommendations were appropriate. The patient appears to be in good spirits which is a positive thing. Plan dated 05/14/2020. Currently, the patient remains on BiPAP. She is on 70%. Her saturations are in the mid to low 90s. She is feeling better. She has been moving around in bed as instructed. She denies any fever or chills. She denies any cough or phlegm production. She denies any chest pain. There are no new labs or x-rays to review. We will continue to follow. Her medications are reviewed. Everything seems appropriate. She seems be moving in a positive direction. Time with Patient: Less than 30
[2020-05-14] MEDS: SODIUM CHLORIDE 0.9% 1,000 ML IV SCH (19:36)
[2020-05-14 20:35] LABS: Glucose,Whole Blood 210 mg/dL (75-99)
[2020-05-14] MEDS: BACLOFEN 10 MG TAB PO SCH (20:47)
[2020-05-14] MEDS: INSULIN DETEMIR (LEVEMIR) 100 UNIT/ML SYR SQ SCH (20:48)
[2020-05-14] MEDS: guaiFENesin SYRUP 100MG/5ML 200 MG/10 ML CUP PO PRN (20:49)
--- NOTE | 2020-05-15 05:52 | PN ---
PROGRESS NOTE DATE OF SERVICE: 05/14/2020 REASON FOR FOLLOWUP: COVID-19 pneumonia. INTERVAL HISTORY: Patient is currently afebrile. The patient remains to be BiPAP dependent, FiO2 slightly down. The patient denies any chest pain. Minimal cough. No vomiting. No abdominal pain. No diarrhea. Has been started on Lasix. EXAMINATION: Her blood pressure is 119/68 with a pulse of 69, temperature 97.6, she is 91% on BIPAP. General description is a middle-aged female up in the bed in no distress. Respiratory system: Unlabored breathing, decreased intensity of breath sounds. No wheeze. HEART: S1, S2. Regular rate and rhythm. Abdomen is soft, no tenderness. LABS: Hemoglobin 9.7, white count 2.0, BUN of 17, creatinine 0.52. DIAGNOSTIC IMPRESSION AND PLAN: Patient with acute respiratory failure secondary to COVID-19 infection in this patient currently on Solu-Medrol, zinc, Lovenox and ascorbic acid with a trial of Lasix. Monitor clinical course closely. Continue supportive care. MMODL / IJN: [id number] /
[2020-05-15 06:05] LABS: Glucose,Whole Blood 155 mg/dL (75-99)
[2020-05-15] MEDS: methylPREDNISolone SOD SUCCI 125 MG/2 ML VIAL IV SCH ×3 (06:47→17:31)
[2020-05-15] MEDS: LEVOTHYROXINE 75 MCG TAB PO SCH (06:47)
[2020-05-15] MEDS: INSULIN ASPART (NovoLOG) 100 UNIT/ML VIAL SQ SCH ×7 (06:48→21:38)
[2020-05-15] MEDS: GLIMEPIRIDE 4 MG TAB PO SCH (06:48)
[2020-05-15] MEDS: guaiFENesin SYRUP 100MG/5ML 200 MG/10 ML CUP PO PRN (06:49)
[2020-05-15] MEDS: metFORMIN 500 MG TAB PO SCH ×3 (06:49→17:30)
[2020-05-15] MEDS: CHOLECALCIFEROL 25 MCG (1000 IU) TABLET PO SCH (08:41)
[2020-05-15] MEDS: allopurinoL 100 MG TAB PO SCH (08:41)
[2020-05-15] MEDS: ATORVASTATIN 40 MG TAB PO SCH (08:41)
[2020-05-15] MEDS: ESCITALOPRAM 20 MG TAB PO SCH (08:41)
[2020-05-15] MEDS: ASCORBIC ACID 500 MG TAB PO SCH (08:41)
[2020-05-15] MEDS: GABAPENTIN 300 MG CAP PO SCH ×4 (08:41→21:38)
[2020-05-15] MEDS: FERROUS SULFATE 325 MG TAB PO SCH (08:41)
[2020-05-15] MEDS: ZINC SULFATE 220 MG CAP PO SCH (08:41)
[2020-05-15] MEDS: lisinopriL 10 MG TAB PO SCH (08:41)
[2020-05-15] MEDS: PANTOPRAZOLE 40 MG/10 ML VIAL IVP SCH ×2 (08:42→21:38)
[2020-05-15] MEDS: ENOXAPARIN 40 MG/0.4 ML SYRINGE SQ SCH (08:42)
[2020-05-15] MEDS: MAG HYDROX/AL HYDROX/SIMETH 30 ML CUP PO SCH ×4 (08:42→21:39)
[2020-05-15 11:46] LABS: African American GFR (CKD) >90 (>60 ml/min/1.73 sqM); Anion Gap 5 mmol/L; Blood Urea Nitrogen 19 mg/dL (7-17); Calcium 8.6 mg/dL (8.4-10.2); Carbon Dioxide 34 mmol/L (22-30); Chloride 98 mmol/L (98-107); Glucose 103 mg/dL (74-99); Non-African American GFR(CKD) >90 (>60 ml/min/1.73 sqM); Sodium 137 mmol/L (137-145)
[2020-05-15 11:56] LABS: Glucose,Whole Blood 102 mg/dL (75-99)
--- NOTE | 2020-05-15 15:38 | P.PN ---
Subjective Progress Note Date: 05/15/20 [id number] female admitted with acute hypoxic respiratory failure secondary to covid- 19 pneumonia, hypertension, diabetes mellitus, obesity and multiple other medical issues. Oxygen requirements worsened, requiring BiPAP. Chest x-ray reporting bilateral interstitial and patchy airspace opacities remain ,mild cardiomegaly. Denies chest pain, palpitations, reports chest soreness from nonproductive cough. Received a dose of Actemra, maintained on Remdesevir, IV steroids , antibiotics and multivitamin supplements. Afebrile, LDH and C- reactive protein trending down. 05/07/2020 Maintained on Remdesevir/covid regimine. Continues to require BiPAP 100% to maintain O2 sats in the high 80s to 90s. Complains of anxiety regarding mask. Deep breaths trigger cough. Afebrile. Labs pending. Denies chest pain, palpitations. 05/08/2020 sitting up at side of bed, continues to require 100% BiPAP. Ma intained on Covid regimen including Remdesevir. T-max 99.1. Occasional nonproductive cough. Denies chest pain, 05/09/20 unable to tolerate BiPAP decreased to 90% with O2 sats decreased to 84%, currently back up on 100% BiPAP, maintaining O2 sats in the 90s on 100s. T-max 99.1, labs pending. Anxiety controlled. Maintained on Covid regimen, completed 5 doses of Remdesevir. Labs pending. 05/10/2020 maintaining O2 sats in the low 90s on 95% BiPAP. Continues on IV steroids, vitamin C, vitamin D, zinc. Afebrile. Reports less coughing. Denies chest pain, palpitations. 05/13/2020 patient feeling better, reports she has " turned the corner". Maintaining O2 sats in the 90s on BiPAP 70%. Minimal nonproductive cough. Denies chest pain, palpitations. Afebrile, Received Lasix yesterday, potassium 3.4.,creatinine 0.69. 05/14/2020 continues feeling better, maintaining O2 sats in the 90s on BiPAP 70%. Occasional nonproductive cough. Mild pedal edema. Denies chest pain, palpitations. 05/15/2020 maintaining O2 sats in the low 90s on 70% BiPAP. Received Lasix yesterday, less pedal edema, renal function stable. Breathing easier. Blood sugars controlled. Objective - Vital Signs Vital signs: Vital Signs Temp 96.8 F L 05/15/20 08:00 Pulse 70 05/15/20 12:00 Resp 21 05/15/20 12:00 BP 122/59 05/15/20 12:00 Pulse Ox 93 L 05/15/20 12:00 Intake & Output 05/14/20 05/15/20 05/15/20 18:59 06:59 18:59 Intake Total 525 840 950 Output Total 1850 1700 400 Balance -1325 -860 550 Weight 144 kg 142.5 kg Intake: Intake, IV Titration 160 240 Amount Sodium Chloride 0.9% 1, 160 240 000 ml @ 20 mls/hr IV . Q24H [facility] Rx#:[id number] Oral 365 600 950 Output: Urine 1850 1700 400 Other: Voiding Method Bedside Commode - Exam PHYSICAL EXAM: VITAL SIGNS: [As above] GENERAL: Alert and oriented 3, Sitting up in bed wearing BiPAP, conversing HEENT: Conjunctivae normal. eyes normal. CARDIOVASCULAR: S1, S2 regular.No murmur RESPIRATION: Breath sounds essentially clear, diminished in the bases. ABDOMEN: Soft, nontender . Nondistended. No guarding, no masses palpable. Positive Bowel sounds. LEGS: Positive mild edema, no cyanosis, no clubbing. NERVOUS SYSTEM: Cranial N 2-12 grossly normal.No focal deficits. Skin: Warm and dry, no rash - Labs CBC & Chem 7: 05/13/20 07:23 05/15/20 10:13 Labs: Abnormal Lab Results - Last 24 Hours (Table) 05/14/20 05/14/20 05/15/20 Range/Units 16:40 20:34 05:55 Carbon Dioxide (22-30) mmol/L BUN (7-17) mg/dL Glucose (74-99) mg/dL POC Glucose (mg/dL) 216 H 210 H 155 H (75-99) mg/dL 05/15/20 05/15/20 Range/Units 10:13 11:54 Carbon Dioxide 34 H (22-30) mmol/L BUN 19 H (7-17) mg/dL Glucose 103 H (74-99) mg/dL POC Glucose (mg/dL) 102 H (75-99) mg/dL Assessment and Plan Assessment: Acute Covid-19 pneumonia, status post convalescent plasma, received tocilizumab, completed Remdesevir Acute hypoxic respiratory failure secondary to the above,BiPAP dependent. Acute anxiety secondary to the above and BiPAP mask, improved leukopenia, lymphopenia and thrombocytopenia secondary to above Diabetes mellitus type 2 Hypertension Hyperlipidemia Hypothyroidism Morbid obesity, BMI 47 Plan: Continue on current medication regimen, monitoring and symptomatic treatment. Covid regimen, Lovenox. BMP titration as per pulmonary. Prognosis guarded given multiple complex medical issues. The impression and plan of care has been dictated as directed. : I performed a history and examination of this patient, discussed the same with the dictator. I agree with the dictator's note ,documented as a scribe. Any additional findings or plans will be noted.
[2020-05-15 16:26] LABS: Glucose,Whole Blood 144 mg/dL (75-99)
[2020-05-15] MEDS: SODIUM CHLORIDE 0.9% 1,000 ML IV SCH (16:30)
--- NOTE | 2020-05-15 17:46 | P.PN ---
Subjective Progress Note Date: 05/15/20 Principal diagnosis: Acute hypoxemic respiratory failure. Patient was reevaluated today on 05/09/2020, remains on BiPAP, she is on 100%, O2 sats is 94%. Surprisingly, the patient seems to be doing well in spite of her significant O2 requirement and BiPAP. Patient received REM, she also received convalescent plasma and ACTEMRA. And so far does not seem to be making that significant turnaround and significant clinical improvement. CBC and basic metabolic profile are normal except for WBC count is 2.0 today. Patient was reevaluated today on 05/10/2020, still requiring significant amount of FiO2, she remains on BiPAP at 90% FiO2, she is on IPAP of 10 and EPAP of 5, and O2 saturation remains marginal. Clinically however the patient feels better breathing easier, and have d-dimer is not that significantly elevated but it is nonetheless abnormal. Hence I recommended a CT angiogram of the chest to be done today. Renal profile is normal. CBC continues to show leukopenia with WBC count of 2.0. Electrolytes are normal. Patient was reevaluated today on 05/11/2020, patient is basically about the same. Remains on BiPAP. Her FiO2 is still at 90%, and her O2 saturation is in the low 90s. Patient is on IPAP of 10 and EPAP of 5, seems to be very comfortable. CT angiogram of the chest yesterday showed bilateral interstitial infiltrates, no evidence of thromboembolic disease/pulmonary embolism. WBC count is 2.2 hemoglobin is 11.6. A left lites are normal renal profile is normal clinically the patient is fairly comfortable, however she is still requiring significant high FiO2. Reevaluated today on 05/12/2020, patient is feeling much better today, breathing a lot easier, she is now on 80% FiO2 remains on BiPAP with IPAP of 10 and EPAP of 5. But her FiO2 was cut down to 80%, and I will cut it down further to 70% and her O2 saturation seems to be significantly improved. Patient feels that she felt much better after the Lasix was given yesterday. I will recommend another dose of Lasix to be given today. Her CT angiogram of the chest yesterday questioned mild interstitial edema. However I felt it was all related to her underlying Covid 19 pneumonitis. Nonetheless Lasix was given, and clinically the patient felt better. Labs today were all reviewed she had WBC count of 2.3 hemoglobin 12.4 lites are normal renal profile remains normal. Progress note dated 05/13/2020. Currently, the patient remains on BiPAP, at 70%. She's feeling better today. She feels less short of breath. Her BiPAP settings are IPAP 10, and EPAP 5. I did tell the patient to move around when she is lying in bed. She should lie down on her right side, left side, supine, and if possible, try to prone herself. Current laboratory data includes a white count of 2, hemoglobin 11.7, hematocrit 35.2, platelet count 94,000. Sodium is 136, potassium 3.4, chlorides 101, CO2 33, anion gap 2, BUN [address], [address] angiogram on May 10 showed no evidence of pulmonary embolism, but did show moderately severe pulmonary interstitial edema/infiltrates. Progress note dated 05/14/2020. The patient remains on BiPAP at 70%. She feels much improved. Her IPAP of 10 and EPAP is fine. She's feeling much less short of breath. I did tell her to move around in bed, right side down, left side down, supine, and even on her stomach if she can. No new labs today to look at. No recent chest x-rays to evaluate either. Medications are appropriate at this time. CT angiogram from May 10 is reviewed. Progress note dated 05/15/2020. The patient remains on BiPAP, settings of IPAP 10, and EPAP of 5. She is on 70%. Her saturations are right around 90% or so. Despite that, the patient states that she is feeling much better. She has been moving around in bed. His been laying on her right side, left side, supine, even on her stomach at times. No new labs today other than a sodium of 137, potassium 4, chloride 98, CO2 34, anion gap 5, BUN 19, creatinine 0.67. Objective - Vital Signs Vital signs: Vital Signs Temp 96.8 F L 05/15/20 08:00 Pulse 70 05/15/20 16:00 Resp 23 05/15/20 16:00 BP 120/57 05/15/20 16:00 Pulse Ox 93 L 05/15/20 12:00 Intake & Output 05/14/20 05/15/20 05/15/20 18:59 06:59 18:59 Intake Total 525 840 950 Output Total 1850 1700 400 Balance -1325 -860 550 Weight 144 kg 142.5 kg Intake: Intake, IV Titration 160 240 Amount Sodium Chloride 0.9% 1, 160 240 000 ml @ 20 mls/hr IV . Q24H [facility] Rx#:[id number] Oral 365 600 950 Output: Urine 1850 1700 400 Other: Voiding Method Bedside Commode - Exam No acute distress, oriented 3. Patient currently on BiPAP. Laying in bed. Saturations 90%. The patient is quite obese. HEENT examination is grossly unremarkable. Neck supple. Full range of motion. No adenopathy thyromegaly or neck vein distention. Cardiovascular examination reveals regular rhythm rate. S1-S2 normal. No S3 or S4. No discernible murmur noted. Heart sounds are distant. Heart rate 70 bpm. Lungs reveal bilateral coarse rhonchi and crackles. Breath sounds equal bilaterally. There are no wheezes. Pulmonary examination is unchanged. Abdomen soft bowel sounds are heard. No masses or tenderness. Extremities are intact. No cyanosis clubbing or edema. Skin is without rash or lesion. Neurologic examination is brief but nonfocal. - Labs CBC & Chem 7: 05/13/20 07:23 05/15/20 10:13 Labs: Abnormal Lab Results - Last 24 Hours (Table) 05/14/20 05/15/20 05/15/20 Range/Units 20:34 05:55 10:13 Carbon Dioxide 34 H (22-30) mmol/L BUN 19 H (7-17) mg/dL Glucose 103 H (74-99) mg/dL POC Glucose (mg/dL) 210 H 155 H (75-99) mg/dL 05/15/20 05/15/20 Range/Units 11:54 16:23 Carbon Dioxide (22-30) mmol/L BUN (7-17) mg/dL Glucose (74-99) mg/dL POC Glucose (mg/dL) 102 H 144 H (75-99) mg/dL Assessment and Plan Assessment: Acute COVID 19 pneumonia, with hypoxemic respiratory failure. Obesity. Diabetes mellitus, type II. History of hypertension. Hyperlipidemia by history. Hypothyroidism. Plan: Plan dated 05/13/2020. The patient remains on BiPAP. We'll continue to titrate the FiO2 down. The patient continues on the appropriate vitamins according vitamin C, vitamin D3, and zinc. In addition, the patient did receive convalescent plasma, REM, and TOCI. The patient also continues on Lovenox, and Solu-Medrol. We will continue to follow. Prognosis is guarded. We'll continue to make recommendations were appropriate. The patient appears to be in good spirits which is a positive thing. Plan dated 05/14/2020. Currently, the patient remains on BiPAP. She is on 70%. Her saturations are in the mid to low 90s. She is feeling better. She has been moving around in bed as instructed. She denies any fever or chills. She denies any cough or phlegm production. She denies any chest pain. There are no new labs or x-rays to review. We will continue to follow. Her medications are reviewed. Everything seems appropriate. She seems be moving in a positive direction. Plan dated 05/15/2020. The patient remains on BiPAP with similar settings as yesterday. She clinically feels better. She feels less short of breath. She has been moving around in bed as instructed. We will continue to follow the patient. No additional recommendations are made. Overall prognosis is guarded. She is on appropriate medications. Time with Patient: Less than 30
[2020-05-15 20:39] LABS: Glucose,Whole Blood 204 mg/dL (75-99)
[2020-05-15] MEDS: BACLOFEN 10 MG TAB PO SCH (21:37)
[2020-05-15] MEDS: INSULIN DETEMIR (LEVEMIR) 100 UNIT/ML SYR SQ SCH (21:38)
--- NOTE | 2020-05-15 22:27 | PN ---
PROGRESS NOTE DATE OF SERVICE: 05/15/2020 REASON FOR FOLLOWUP: COVID-19 pneumonia. INTERVAL HISTORY: The patient is currently afebrile. The patient is breathing comfortably. The patient remains on the BiPAP. Denies having any chest pain, shortness of breath or cough. No nausea, no vomiting, no abdominal pain or diarrhea. PHYSICAL EXAMINATION: Blood pressure 121/60 with a pulse of 70, temperature 96.8. She is 90% on BiPAP. General description is a middle-aged female up in the chair in no distress. RESPIRATORY SYSTEM: Unlabored breathing with decreased intensity of breath sounds. HEART: S1, S2. Regular rate and rhythm. ABDOMEN: Soft. No tenderness. LABS: BUN of 19, creatinine 0.67. DIAGNOSTIC IMPRESSION AND PLAN: Patient with acute COVID-19 infection in this patient who is BiPAP-dependent. The patient remains on Lovenox, Solu-Medrol, zinc and ascorbic acid along with respiratory support. Monitor clinical course closely. MMODL / IJN: [id number] /
[2020-05-16] MEDS: methylPREDNISolone SOD SUCCI 125 MG/2 ML VIAL IV SCH ×5 (00:14→23:50)
[2020-05-16] MEDS: guaiFENesin SYRUP 100MG/5ML 200 MG/10 ML CUP PO PRN (00:15)
[2020-05-16 06:06] LABS: Glucose,Whole Blood 165 mg/dL (75-99)
[2020-05-16] MEDS: LEVOTHYROXINE 75 MCG TAB PO SCH (06:57)
[2020-05-16] MEDS: INSULIN ASPART (NovoLOG) 100 UNIT/ML VIAL SQ SCH ×7 (06:57→20:59)
[2020-05-16] MEDS: metFORMIN 500 MG TAB PO SCH ×3 (06:57→17:24)
[2020-05-16] MEDS: GLIMEPIRIDE 4 MG TAB PO SCH (06:57)
[2020-05-16] MEDS: ZINC SULFATE 220 MG CAP PO SCH (08:46)
[2020-05-16] MEDS: ESCITALOPRAM 20 MG TAB PO SCH (08:46)
[2020-05-16] MEDS: ASCORBIC ACID 500 MG TAB PO SCH (08:46)
[2020-05-16] MEDS: lisinopriL 10 MG TAB PO SCH (08:46)
[2020-05-16] MEDS: allopurinoL 100 MG TAB PO SCH (08:47)
[2020-05-16] MEDS: FERROUS SULFATE 325 MG TAB PO SCH (08:47)
[2020-05-16] MEDS: GABAPENTIN 300 MG CAP PO SCH ×4 (08:47→20:59)
[2020-05-16] MEDS: ATORVASTATIN 40 MG TAB PO SCH (08:47)
[2020-05-16] MEDS: ENOXAPARIN 40 MG/0.4 ML SYRINGE SQ SCH (08:47)
[2020-05-16] MEDS: CHOLECALCIFEROL 25 MCG (1000 IU) TABLET PO SCH (08:47)
[2020-05-16] MEDS: PANTOPRAZOLE 40 MG/10 ML VIAL IVP SCH (08:47)
[2020-05-16] MEDS: MAG HYDROX/AL HYDROX/SIMETH 30 ML CUP PO SCH ×4 (08:48→20:58)
[2020-05-16 12:06] LABS: Glucose,Whole Blood 146 mg/dL (75-99)
--- NOTE | 2020-05-16 16:05 | P.PN ---
Subjective Progress Note Date: 05/16/20 Principal diagnosis: Acute CoVID 19 pneumonia 79-year-old female patient, morbidly obese with a BMI of 47, was hospitalized for COVID 19 related pneumonia. The patient currently is hypoxic on 3 L of oxygen by nasal cannula. She has comorbidities including obesity with a BMI of 47, hypertension, diabetes mellitus and gout. She also has hyperlipidemia and hypothyroidism. The patient started getting symptoms approximately a week ago, on 04/28/2020 and the patient was diagnosed having Covid 19 infection for a primary care physician's office on 04/29.. She continued to have episodes of fever and subsequently she became progressively more short of breath necessitating emergency department visitation today and ultimately she was hospitalized. Her chest x-ray showing bilateral pulmonary infiltrates peripheral distribution more so on the right compared to the left. The patient was started on steroids.. She is slightly nauseated. She also has loss of taste and smell LDH level is currently at 802 with a CRP of 55 and she had a lactic acid level of 2.1 at the time of admission. There d-dimer is still pending for now. Her white cell count is at 1.4 and the patient is lymphopenic with a lymphocyte count of 0.6 and there is also a drop in her platelet count down to 80 and these are all manifestations of COVID 19 infection. On today's evaluation of 04/27/2020, the patient's oxygenation has gotten worse. I saw her in the emergency department yesterday and she was on 4 L. She progressively required higher oxygen flow and she went up to a high flow oxygen through the nasal cannula airvo which she feels a currently she is on a BiPAP at a pressure of 10/5 with an FiO2 of 100%. She is able to generate a tidal volume around 450-500. Respiratory rate is in the mid 30s low 40s. She feels well. She is in mild degree of respiratory distress. She is still able to converse and talk to her BiPAP mask. Her current pulse ox is 94%. 60 showing diffuse breath and pulmonary infiltrates consistent with Covid 19 related pneumonia. Her white cell count is still down at 1.2. Platelet count is at 70 now which is low. D-dimer is at 0.65, her LDH level is at 835 with a CRP of 56. She is on Decadron. I'm going to switch her to Solu-Medrol. She is currently taking REM should be considered for convalescent plasma and addition to Tocilizumab The patient is seen today 05/06/2020 in follow-up on the regular medical floor. She is currently sitting up in bed. Awake and alert in no acute distress. Currently on BiPAP 10/5 and 100% FiO2. Current saturation 88%. Chest x-ray reveals mild, medically. Residual bilateral airspace disease. Improving compared to previous. This is day #3 of Remdesivir. She received convalescent plasma 1, tocilizumab. D-dimer 0.84. C-reactive protein 2.8. LDH 459. She remains on Decadron, IV Solu-Medrol, vitamin supplements. Patient was reevaluated today on 05/09/2020, remains on BiPAP, she is on 100%, O2 sats is 94%. Surprisingly, the patient seems to be doing well in spite of her significant O2 requirement and BiPAP. Patient received REM, she also received convalescent plasma and ACTEMRA. And so far does not seem to be making that significant turnaround and significant clinical improvement. CBC and basic metabolic profile are normal except for WBC count is 2.0 today. Patient was reevaluated today on 05/10/2020, still requiring significant amount of FiO2, she remains on BiPAP at 90% FiO2, she is on IPAP of 10 and EPAP of 5, and O2 saturation remains marginal. Clinically however the patient feels better breathing easier, and have d-dimer is not that significantly elevated but it is nonetheless abnormal. Hence I recommended a CT angiogram of the chest to be done today. Renal profile is normal. CBC continues to show leukopenia with WBC count of 2.0. Electrolytes are normal. Patient was reevaluated today on 05/11/2020, patient is basically about the same. Remains on BiPAP. Her FiO2 is still at 90%, and her O2 saturation is in the low 90s. Patient is on IPAP of 10 and EPAP of 5, seems to be very comfortable. CT angiogram of the chest yesterday showed bilateral interstitial infiltrates, no evidence of thromboembolic disease/pulmonary embolism. WBC count is 2.2 hemoglobin is 11.6. A left lites are normal renal profile is normal clinically the patient is fairly comfortable, however she is still requiring significant high FiO2. Reevaluated today on 05/12/2020, patient is feeling much better today, breathing a lot easier, she is now on 80% FiO2 remains on BiPAP with IPAP of 10 and EPAP of 5. But her FiO2 was cut down to 80%, and I will cut it down further to 70% and her O2 saturation seems to be significantly improved. Patient feels that she felt much better after the Lasix was given yesterday. I will recommend another dose of Lasix to be given today. Her CT angiogram of the chest yesterday questioned mild interstitial edema. However I felt it was all related to her underlying Covid 19 pneumonitis. Nonetheless Lasix was given, and clinically the patient felt better. Labs today were all reviewed she had WBC count of 2.3 hemoglobin 12.4 lites are normal renal profile remains normal. Progress note dated 05/13/2020. Currently, the patient remains on BiPAP, at 70%. She's feeling better today. She feels less short of breath. Her BiPAP settings are IPAP 10, and EPAP 5. I did tell the patient to move around when she is lying in bed. She should lie down on her right side, left side, supine, and if possible, try to prone herself. Current laboratory data includes a white count of 2, hemoglobin 11.7, hematocrit 35.2, platelet count 94,000. Sodium is 136, potassium 3.4, chlorides 101, CO2 33, anion gap 2, BUN [address], [address] angiogram on May 10 showed no evidence of pulmonary embolism, but did show moderately severe pulmonary interstitial edema/infiltrates. Progress note dated 05/14/2020. The patient remains on BiPAP at 70%. She feels much improved. Her IPAP of 10 and EPAP is fine. She's feeling much less short of breath. I did tell her to move around in bed, right side down, left side down, supine, and even on her sto mach if she can. No new labs today to look at. No recent chest x-rays to evaluate either. Medications are appropriate at this time. CT angiogram from May 10 is reviewed. Progress note dated 05/15/2020. The patient remains on BiPAP, settings of IPAP 10, and EPAP of 5. She is on 70%. Her saturations are right around 90% or so. Despite that, the patient states that she is feeling much better. She has been moving around in bed. His been laying on her right side, left side, supine, even on her stomach at times. No new labs today other than a sodium of 137, potassium 4, chloride 98, CO2 34, anion gap 5, BUN 19, creatinine 0.67. The patient is seen today 05/16/2020 in follow-up on the selective care unit. She is currently resting fairly comfortably in bed. She is continued on BiPAP currently 10/5 and 70% FiO2. She is maintaining O2 saturations about 85-86%. Today she is feeling mostly tired and fatigued. Breathing is about the same. No better but no worse currently. She remains on IV Solu-Medrol, Lovenox, vitamin supplements. Blood glucose 146. Objective - Vital Signs Vital signs: Vital Signs Temp 97.8 F 05/16/20 08:00 Pulse 70 05/16/20 12:00 Resp 18 05/16/20 12:00 BP 123/57 05/16/20 12:00 Pulse Ox 91 L 05/16/20 12:00 Intake & Output 05/15/20 05/16/20 05/16/20 18:59 06:59 18:59 Intake Total 1610 560 Output Total 400 Balance 1210 560 Weight 143.5 kg 143.5 kg Intake: Oral 1610 560 Output: Urine 400 Other: Voiding Method Bedside Commode # Voids 2 # Bowel Movements 1 - Exam GENERAL EXAM: Alert, pleasant 59 female patient, currently on BiPAP 10/5 and 70% FiO2, comfortable in no apparent distress. HEAD: Normocephalic. EYES: Normal reaction of pupils, equal size. NOSE: Clear with pink turbinates. THROAT: No erythema or exudates. NECK: No masses, no JVD. CHEST: No chest wall deformity. LUNGS: Equal air entry with crackles in the bilateral posterior bases. CVS: S1 and S2 normal with no audible murmur, regular rhythm. ABDOMEN: No hepatosplenomegaly, normal bowel sounds, no guarding or rigidity. SPINE: No scoliosis or deformity SKIN: No rashes CENTRAL NERVOUS SYSTEM: No focal deficits, tone is normal in all 4 extremities. EXTREMITIES: There is no peripheral edema. No clubbing, no cyanosis. Peripheral pulses are intact. - Labs CBC & Chem 7: 05/13/20 07:23 05/15/20 10:13 Labs: Abnormal Lab Results - Last 24 Hours (Table) 05/15/20 05/15/20 05/16/20 Range/Units 16:23 20:36 06:01 POC Glucose (mg/dL) 144 H 204 H 165 H (75-99) mg/dL 05/16/20 Range/Units 12:04 POC Glucose (mg/dL) 146 H (75-99) mg/dL Assessment and Plan Assessment: 1 acute Covid 19 related pneumonia, symptoms started on 04/28/2020, diagnosed to be positive on 04/29/2020 and currently presenting with worsening shortness of breath and hypoxic respiratory failure, after being on 4 L the patient progressed to high flow and currently she is on a BiPAP and she does developed diffuse bilateral pulmonary infiltrates. She has completed Remdesivir, she received tocilizumab and convalescent plasma. 2 acute hypoxic respiratory failure secondary to above 3 fever secondary to above 4 leukopenia, lymphopenia and thrombocytopenia secondary to above, white cell count remains low 5 mild elevation of inflammatory markers secondary to Covid 19 infection 6 obesity with a BMI of 47.0 7 diabetes mellitus type 2 8 hypertension 9 hyperlipidemia 10 hypothyroidism Plan The patient was seen and evaluated by Dr. Franklin Received convalescent plasma, tocilizumab, Remdesivir Remains on Decadron, Lovenox, vitamin supplements Remains on BiPAP 10/5 and 70% FiO2 Titrate down the FiO2 as tolerated We'll continue to follow I, the cosigning physician, performed a history & physical examination of the patient. Lungs sounds with crackles in bilateral bases. Maintaining good O2 saturations in the 90s on BiPAP 10/5 and 70% FiO2. I discussed the assessment and plan of care with my nurse practitioner, Suly Iverson. I attest to the above note as dictated by her.
[2020-05-16] MEDS: SODIUM CHLORIDE 0.9% 1,000 ML IV SCH (16:45)
[2020-05-16 17:07] LABS: Glucose,Whole Blood 138 mg/dL (75-99)
--- NOTE | 2020-05-16 17:23 | P.PN ---
Subjective Progress Note Date: 05/16/20 [id number] female admitted with acute hypoxic respiratory failure secondary to covid- 19 pneumonia, hypertension, diabetes mellitus, obesity and multiple other medical issues. Oxygen requirements worsened, requiring BiPAP. Chest x-ray reporting bilateral interstitial and patchy airspace opacities remain ,mild cardiomegaly. Denies chest pain, palpitations, reports chest soreness from nonproductive cough. Received a dose of Actemra, maintained on Remdesevir, IV steroids , antibiotics and multivitamin supplements. Afebrile, LDH and C- reactive protein trending down. 05/07/2020 Maintained on Remdesevir/covid regimine. Continues to require BiPAP 100% to maintain O2 sats in the high 80s to 90s. Complains of anxiety regarding mask. Deep breaths trigger cough. Afebrile. Labs pending. Denies chest pain, palpitations. 05/08/2020 sitting up at side of bed, continues to require 100% BiPAP. Ma intained on Covid regimen including Remdesevir. T-max 99.1. Occasional nonproductive cough. Denies chest pain, 05/09/20 unable to tolerate BiPAP decreased to 90% with O2 sats decreased to 84%, currently back up on 100% BiPAP, maintaining O2 sats in the 90s on 100s. T-max 99.1, labs pending. Anxiety controlled. Maintained on Covid regimen, completed 5 doses of Remdesevir. Labs pending. 05/10/2020 maintaining O2 sats in the low 90s on 95% BiPAP. Continues on IV steroids, vitamin C, vitamin D, zinc. Afebrile. Reports less coughing. Denies chest pain, palpitations. 05/13/2020 patient feeling better, reports she has " turned the corner". Maintaining O2 sats in the 90s on BiPAP 70%. Minimal nonproductive cough. Denies chest pain, palpitations. Afebrile, Received Lasix yesterday, potassium 3.4.,creatinine 0.69. 05/14/2020 continues feeling better, maintaining O2 sats in the 90s on BiPAP 70%. Occasional nonproductive cough. Mild pedal edema. Denies chest pain, palpitations. 05/15/2020 maintaining O2 sats in the low 90s on 70% BiPAP. Received Lasix yesterday, less pedal edema, renal function stable. Breathing easier. Blood sugars controlled. 05/16/2020 maintaining O2 sats in the low 90s on nonrebreather and high flow airvo. Afebrile, sodium trending down, 123, creatinine 1.8. Continues to feel better and reporting less shortness of breath. Objective - Vital Signs Vital signs: Vital Signs Temp 97.8 F 05/16/20 08:00 Pulse 70 05/16/20 12:00 Resp 18 05/16/20 12:00 BP 123/57 05/16/20 12:00 Pulse Ox 91 L 05/16/20 12:00 Intake & Output 05/15/20 05/16/20 05/16/20 18:59 06:59 18:59 Intake Total 1610 560 Output Total 400 Balance 1210 560 Weight 143.5 kg 143.5 kg Intake: Oral 1610 560 Output: Urine 400 Other: Voiding Method Bedside Commode # Voids 2 # Bowel Movements 1 - Exam PHYSICAL EXAM: VITAL SIGNS: [As above] GENERAL: Alert and oriented 3, Sitting up in bed wearing BiPAP, conversing easier HEENT: Conjunctivae normal. eyes normal. CARDIOVASCULAR: S1, S2 regular.No murmur RESPIRATION: Breath sounds essentially clear, diminished in the bases. Bibasilar crackles ABDOMEN: Soft, nontender . Nondistended. No guarding, no masses palpable. Positive Bowel sounds. LEGS: Positive mild edema, no cyanosis, no clubbing. NERVOUS SYSTEM: Cranial N 2-12 grossly normal.No focal deficits. Skin: Warm and dry, no rash - Labs CBC & Chem 7: 05/13/20 07:23 05/15/20 10:13 Labs: Abnormal Lab Results - Last 24 Hours (Table) 05/15/20 05/15/20 05/16/20 Range/Units 16:23 20:36 06:01 POC Glucose (mg/dL) 144 H 204 H 165 H (75-99) mg/dL 05/16/20 Range/Units 12:04 POC Glucose (mg/dL) 146 H (75-99) mg/dL Assessment and Plan Assessment: Sepsis, present on admission secondary to Acute Covid-19 pneumonia, status post convalescent plasma, received tocilizumab, completed Remdesevir Acute hypoxic respiratory failure secondary to the above,BiPAP dependent. Hyponatremia, hypovolemic, suspect diuretic induced Acute anxiety secondary to the above and BiPAP mask, improved leukopenia, lymphopenia and thrombocytopenia secondary to above Diabetes mellitus type 2 Hypertension Hyperlipidemia Hypothyroidism Morbid obesity, BMI 47 Plan: Continue on current medication regimen, monitoring and symptomatic treatment.Diuretics on hold, gentle IV fluid hydration secondary to hyponatremia .Covid regimen, Lovenox. Prognosis guarded given multiple complex medical issues. The impression and plan of care has been dictated as directed. : I performed a history and examination of this patient, discussed the same with the dictator. I agree with the dictator's note ,documented as a scribe. Any additional findings or plans will be noted.
[2020-05-16] MEDS: PANTOPRAZOLE 40 MG TABLET PO SCH (17:24)
--- NOTE | 2020-05-16 18:16 | PN ---
PROGRESS NOTE DATE OF SERVICE: 05/16/2020 REASON FOR FOLLOWUP: COVID-19 infection. INTERVAL HISTORY: The patient is currently afebrile. The patient remains BiPAP-dependent. The patient's oxygen saturation has improved. Remains on 70% FiO2. Denies having any chest pain. Occasional cough. No abdominal pain or diarrhea. PHYSICAL EXAMINATION: Blood pressure 123/57, pulse of 70, temperature 97.8. She is 91% on BiPAP. General description is a middle-aged female lying in bed in no distress. RESPIRATORY SYSTEM: Unlabored breathing with decreased intensity of breath sounds. No wheeze. HEART: S1, S2. Regular rate and rhythm. ABDOMEN: Soft. No tenderness. LABS: No new labs have been obtained today. Blood culture has been negative. DIAGNOSTIC IMPRESSION AND PLAN: Patient with acute respiratory failure secondary to COVID-19 pneumonia. Patient is currently on Lovenox, Solu-Medrol, zinc and ascorbic acid; to continue along with respiratory support. Monitor clinical course closely. MMODL / IJN: [id number] /
[2020-05-16 20:35] LABS: Glucose,Whole Blood 144 mg/dL (75-99)
[2020-05-16] MEDS: BACLOFEN 10 MG TAB PO SCH (20:58)
[2020-05-16] MEDS: INSULIN DETEMIR (LEVEMIR) 100 UNIT/ML SYR SQ SCH (20:59)
[2020-05-17] MEDS: methylPREDNISolone SOD SUCCI 125 MG/2 ML VIAL IV SCH ×4 (06:43→23:51)
[2020-05-17] MEDS: PANTOPRAZOLE 40 MG TABLET PO SCH ×2 (06:44→17:40)
[2020-05-17] MEDS: metFORMIN 500 MG TAB PO SCH ×3 (06:44→17:40)
[2020-05-17] MEDS: LEVOTHYROXINE 75 MCG TAB PO SCH (06:44)
[2020-05-17] MEDS: GLIMEPIRIDE 4 MG TAB PO SCH (06:44)
[2020-05-17 06:56] LABS: Glucose,Whole Blood 171 mg/dL (75-99)
[2020-05-17 07:09] LABS: African American GFR (CKD) >90 (>60 ml/min/1.73 sqM); Anion Gap 1 mmol/L; Blood Urea Nitrogen 20 mg/dL (7-17); Calcium 8.3 mg/dL (8.4-10.2); Carbon Dioxide 35 mmol/L (22-30); Chloride 97 mmol/L (98-107); Glucose 166 mg/dL (74-99); Non-African American GFR(CKD) >90 (>60 ml/min/1.73 sqM); Potassium 4.5 mmol/L (3.5-5.1); Sodium 133 mmol/L (137-145)
[2020-05-17] MEDS: INSULIN ASPART (NovoLOG) 100 UNIT/ML VIAL SQ SCH ×7 (07:09→21:18)
[2020-05-17] MEDS: GABAPENTIN 300 MG CAP PO SCH ×4 (08:22→21:09)
[2020-05-17] MEDS: allopurinoL 100 MG TAB PO SCH (08:23)
[2020-05-17] MEDS: ENOXAPARIN 40 MG/0.4 ML SYRINGE SQ SCH (08:23)
[2020-05-17] MEDS: lisinopriL 10 MG TAB PO SCH (08:23)
[2020-05-17] MEDS: FERROUS SULFATE 325 MG TAB PO SCH (08:23)
[2020-05-17] MEDS: ESCITALOPRAM 20 MG TAB PO SCH (08:23)
[2020-05-17] MEDS: ZINC SULFATE 220 MG CAP PO SCH (08:23)
[2020-05-17] MEDS: ASCORBIC ACID 500 MG TAB PO SCH (08:23)
[2020-05-17] MEDS: MAG HYDROX/AL HYDROX/SIMETH 30 ML CUP PO SCH ×4 (08:23→21:10)
[2020-05-17] MEDS: ATORVASTATIN 40 MG TAB PO SCH (08:23)
[2020-05-17] MEDS: CHOLECALCIFEROL 25 MCG (1000 IU) TABLET PO SCH (08:23)
[2020-05-17 11:34] LABS: Glucose,Whole Blood 132 mg/dL (75-99)
--- NOTE | 2020-05-17 15:40 | P.PN ---
Subjective Progress Note Date: 05/17/20 [id number] female admitted with acute hypoxic respiratory failure secondary to covid- 19 pneumonia, hypertension, diabetes mellitus, obesity and multiple other medical issues. Oxygen requirements worsened, requiring BiPAP. Chest x-ray reporting bilateral interstitial and patchy airspace opacities remain ,mild cardiomegaly. Denies chest pain, palpitations, reports chest soreness from nonproductive cough. Received a dose of Actemra, maintained on Remdesevir, IV steroids , antibiotics and multivitamin supplements. Afebrile, LDH and C- reactive protein trending down. 05/07/2020 Maintained on Remdesevir/covid regimine. Continues to require BiPAP 100% to maintain O2 sats in the high 80s to 90s. Complains of anxiety regarding mask. Deep breaths trigger cough. Afebrile. Labs pending. Denies chest pain, palpitations. 05/08/2020 sitting up at side of bed, continues to require 100% BiPAP. Ma intained on Covid regimen including Remdesevir. T-max 99.1. Occasional nonproductive cough. Denies chest pain, 05/09/20 unable to tolerate BiPAP decreased to 90% with O2 sats decreased to 84%, currently back up on 100% BiPAP, maintaining O2 sats in the 90s on 100s. T-max 99.1, labs pending. Anxiety controlled. Maintained on Covid regimen, completed 5 doses of Remdesevir. Labs pending. 05/10/2020 maintaining O2 sats in the low 90s on 95% BiPAP. Continues on IV steroids, vitamin C, vitamin D, zinc. Afebrile. Reports less coughing. Denies chest pain, palpitations. 05/13/2020 patient feeling better, reports she has " turned the corner". Maintaining O2 sats in the 90s on BiPAP 70%. Minimal nonproductive cough. Denies chest pain, palpitations. Afebrile, Received Lasix yesterday, potassium 3.4.,creatinine 0.69. 05/14/2020 continues feeling better, maintaining O2 sats in the 90s on BiPAP 70%. Occasional nonproductive cough. Mild pedal edema. Denies chest pain, palpitations. 05/15/2020 maintaining O2 sats in the low 90s on 70% BiPAP. Received Lasix yesterday, less pedal edema, renal function stable. Breathing easier. Blood sugars controlled. 05/16/2020 maintaining O2 sats in the low 90s on nonrebreather and high flow airvo. Afebrile, sodium trending down, 123, creatinine 1.8. Continues to feel better and reporting less shortness of breath. 05/17/2020 80% BiPAP, maintaining O2 sats in the 90s. Reports last night she tolerated 15 minutes on 15 L high flow nasal cannula plus nonrebreather mask .Nonproductive cough. Less tired, reports more energy. Blood sugars controlled. Denies chest pain, palpitations. Afebrile. Objective - Vital Signs Vital signs: Vital Signs Temp 98.7 F 05/17/20 08:10 Pulse 72 05/17/20 12:00 Resp 18 05/17/20 12:00 BP 111/55 05/17/20 12:00 Pulse Ox 85 L 05/17/20 12:00 Intake & Output 05/16/20 05/17/20 05/17/20 18:59 06:59 18:59 Intake Total 1040 1120 Output Total 900 Balance 1040 -900 1120 Weight 143.5 kg 144 kg Intake: Oral 1040 1120 Output: Urine 900 Other: Voiding Method Bedside Commode # Voids 1 - Exam PHYSICAL EXAM: VITAL SIGNS: [As above] GENERAL: Alert and oriented 3, Sitting up in bed wearing BiPAP, conversing HEENT: Conjunctivae normal. eyes normal. CARDIOVASCULAR: S1, S2 regular.No murmur RESPIRATION: Diminished bases with ibasilar crackles ABDOMEN: Soft, nontender,nondistended.+BS, No guarding, no masses palpable. LEGS: Mild edema, no cyanosis, no clubbing. No calf pain. NERVOUS SYSTEM: Cranial N 2-12 grossly normal.No focal deficits. Skin: Warm and dry, no rash - Labs CBC & Chem 7: 05/13/20 07:23 05/17/20 05:51 Labs: Abnormal Lab Results - Last 24 Hours (Table) 05/16/20 05/16/20 05/17/20 Range/Units 17:05 20:34 05:51 Sodium 133 L (137-145) mmol/L Chloride 97 L (98-107) mmol/L Carbon Dioxide 35 H (22-30) mmol/L BUN 20 H (7-17) mg/dL Glucose 166 H (74-99) mg/dL POC Glucose (mg/dL) 138 H 144 H (75-99) mg/dL Calcium 8.3 L (8.4-10.2) mg/dL 05/17/20 05/17/20 Range/Units 06:09 11:32 Sodium (137-145) mmol/L Chloride (98-107) mmol/L Carbon Dioxide (22-30) mmol/L BUN (7-17) mg/dL Glucose (74-99) mg/dL POC Glucose (mg/dL) 171 H 132 H (75-99) mg/dL Calcium (8.4-10.2) mg/dL Assessment and Plan Assessment: Sepsis, present on admission secondary to Acute Covid-19 pneumonia, status post convalescent plasma, received tocilizumab, completed Remdesevir Acute hypoxic respiratory failure secondary to the above,BiPAP dependent. Hyponatremia, hypovolemic, suspect diuretic induced Acute anxiety secondary to the above and BiPAP mask, improved leukopenia, lymphopenia and thrombocytopenia secondary to above Diabetes mellitus type 2 Hypertension Hyperlipidemia Hypothyroidism Morbid obesity, BMI 47 Plan: Continue on current medication regimen, monitoring and symptomatic treatment.labs pending .Covid regimen, Lovenox. Prognosis guarded given multiple complex medical issues. Increase activity as tolerated. The impression and plan of care has been dictated as directed. : I performed a history and examination of this patient, discussed the same with the dictator. I agree with the dictator's note ,documented as a scribe. Any additional findings or plans will be noted.
--- NOTE | 2020-05-17 16:42 | XR ---
EXAMINATION TYPE: XR chest 1V portable DATE OF EXAM: 05/17/2020 Comparison: 05/09/2020 Clinical History: 59-year-old female COVID, low oxygen saturation. Findings: Heart is mildly enlarged. Low lung volumes. Bilateral airspace opacities throughout. No pneumothorax seen. Impression: Cardiomegaly, hypoventilatory changes, and continued bilateral airspace disease. Slightly worsened fr om 05/09/2020.
[2020-05-17 17:16] LABS: Glucose,Whole Blood 120 mg/dL (75-99)
--- NOTE | 2020-05-17 17:27 | P.PN ---
Subjective Progress Note Date: 05/17/20 Principal diagnosis: Acute CoVID 19 pneumonia 79-year-old female patient, morbidly obese with a BMI of 47, was hospitalized for COVID 19 related pneumonia. The patient currently is hypoxic on 3 L of oxygen by nasal cannula. She has comorbidities including obesity with a BMI of 47, hypertension, diabetes mellitus and gout. She also has hyperlipidemia and hypothyroidism. The patient started getting symptoms approximately a week ago, on 04/28/2020 and the patient was diagnosed having Covid 19 infection for a primary care physician's office on 04/29.. She continued to have episodes of fever and subsequently she became progressively more short of breath necessitating emergency department visitation today and ultimately she was hospitalized. Her chest x-ray showing bilateral pulmonary infiltrates peripheral distribution more so on the right compared to the left. The patient was started on steroids.. She is slightly nauseated. She also has loss of taste and smell LDH level is currently at 802 with a CRP of 55 and she had a lactic acid level of 2.1 at the time of admission. There d-dimer is still pending for now. Her white cell count is at 1.4 and the patient is lymphopenic with a lymphocyte count of 0.6 and there is also a drop in her platelet count down to 80 and these are all manifestations of COVID 19 infection. On today's evaluation of 04/27/2020, the patient's oxygenation has gotten worse. I saw her in the emergency department yesterday and she was on 4 L. She progressively required higher oxygen flow and she went up to a high flow oxygen through the nasal cannula airvo which she feels a currently she is on a BiPAP at a pressure of 10/5 with an FiO2 of 100%. She is able to generate a tidal volume around 450-500. Respiratory rate is in the mid 30s low 40s. She feels well. She is in mild degree of respiratory distress. She is still able to converse and talk to her BiPAP mask. Her current pulse ox is 94%. 60 showing diffuse breath and pulmonary infiltrates consistent with Covid 19 related pneumonia. Her white cell count is still down at 1.2. Platelet count is at 70 now which is low. D-dimer is at 0.65, her LDH level is at 835 with a CRP of 56. She is on Decadron. I'm going to switch her to Solu-Medrol. She is currently taking REM should be considered for convalescent plasma and addition to Tocilizumab The patient is seen today 05/06/2020 in follow-up on the regular medical floor. She is currently sitting up in bed. Awake and alert in no acute distress. Currently on BiPAP 10/5 and 100% FiO2. Current saturation 88%. Chest x-ray reveals mild, medically. Residual bilateral airspace disease. Improving compared to previous. This is day #3 of Remdesivir. She received convalescent plasma 1, tocilizumab. D-dimer 0.84. C-reactive protein 2.8. LDH 459. She remains on Decadron, IV Solu-Medrol, vitamin supplements. Patient was reevaluated today on 05/09/2020, remains on BiPAP, she is on 100%, O2 sats is 94%. Surprisingly, the patient seems to be doing well in spite of her significant O2 requirement and BiPAP. Patient received REM, she also received convalescent plasma and ACTEMRA. And so far does not seem to be making that significant turnaround and significant clinical improvement. CBC and basic metabolic profile are normal except for WBC count is 2.0 today. Patient was reevaluated today on 05/10/2020, still requiring significant amount of FiO2, she remains on BiPAP at 90% FiO2, she is on IPAP of 10 and EPAP of 5, and O2 saturation remains marginal. Clinically however the patient feels better breathing easier, and have d-dimer is not that significantly elevated but it is nonetheless abnormal. Hence I recommended a CT angiogram of the chest to be done today. Renal profile is normal. CBC continues to show leukopenia with WBC count of 2.0. Electrolytes are normal. Patient was reevaluated today on 05/11/2020, patient is basically about the same. Remains on BiPAP. Her FiO2 is still at 90%, and her O2 saturation is in the low 90s. Patient is on IPAP of 10 and EPAP of 5, seems to be very comfortable. CT angiogram of the chest yesterday showed bilateral interstitial infiltrates, no evidence of thromboembolic disease/pulmonary embolism. WBC count is 2.2 hemoglobin is 11.6. A left lites are normal renal profile is normal clinically the patient is fairly comfortable, however she is still requiring significant high FiO2. Reevaluated today on 05/12/2020, patient is feeling much better today, breathing a lot easier, she is now on 80% FiO2 remains on BiPAP with IPAP of 10 and EPAP of 5. But her FiO2 was cut down to 80%, and I will cut it down further to 70% and her O2 saturation seems to be significantly improved. Patient feels that she felt much better after the Lasix was given yesterday. I will recommend another dose of Lasix to be given today. Her CT angiogram of the chest yesterday questioned mild interstitial edema. However I felt it was all related to her underlying Covid 19 pneumonitis. Nonetheless Lasix was given, and clinically the patient felt better. Labs today were all reviewed she had WBC count of 2.3 hemoglobin 12.4 lites are normal renal profile remains normal. Progress note dated 05/13/2020. Currently, the patient remains on BiPAP, at 70%. She's feeling better today. She feels less short of breath. Her BiPAP settings are IPAP 10, and EPAP 5. I did tell the patient to move around when she is lying in bed. She should lie down on her right side, left side, supine, and if possible, try to prone herself. Current laboratory data includes a white count of 2, hemoglobin 11.7, hematocrit 35.2, platelet count 94,000. Sodium is 136, potassium 3.4, chlorides 101, CO2 33, anion gap 2, BUN [address], [address] angiogram on May 10 showed no evidence of pulmonary embolism, but did show moderately severe pulmonary interstitial edema/infiltrates. Progress note dated 05/14/2020. The patient remains on BiPAP at 70%. She feels much improved. Her IPAP of 10 and EPAP is fine. She's feeling much less short of breath. I did tell her to move around in bed, right side down, left side down, supine, and even on her sto mach if she can. No new labs today to look at. No recent chest x-rays to evaluate either. Medications are appropriate at this time. CT angiogram from May 10 is reviewed. Progress note dated 05/15/2020. The patient remains on BiPAP, settings of IPAP 10, and EPAP of 5. She is on 70%. Her saturations are right around 90% or so. Despite that, the patient states that she is feeling much better. She has been moving around in bed. His been laying on her right side, left side, supine, even on her stomach at times. No new labs today other than a sodium of 137, potassium 4, chloride 98, CO2 34, anion gap 5, BUN 19, creatinine 0.67. The patient is seen today 05/16/2020 in follow-up on the selective care unit. She is currently resting fairly comfortably in bed. She is continued on BiPAP currently 10/5 and 70% FiO2. She is maintaining O2 saturations about 85-86%. Today she is feeling mostly tired and fatigued. Breathing is about the same. No better but no worse currently. She remains on IV Solu-Medrol, Lovenox, vitamin supplements. Blood glucose 146. The patient is seen today 05/17/2020 in follow-up on the selective care unit. She remains awake and alert in no acute distress. She is still requiring BiPAP support 10/5 and 80% FiO2 to maintain O2 saturations in the mid 80s. She's been afebrile. Hemodynamically stable. Chest x-ray reveals cardiomegaly, continued bilateral airspace disease, slightly worsened compared to previous. Sodium 133. Potassium 4.5. Creatinine 0.67. She remains on Lovenox, IV Solu-Medrol, vitamin supplements. Objective - Vital Signs Vital signs: Vital Signs Temp 98.7 F 05/17/20 16:00 Pulse 71 05/17/20 16:00 Resp 18 05/17/20 16:00 BP 113/64 05/17/20 16:00 Pulse Ox 88 L 05/17/20 16:00 Intake & Output 05/16/20 05/17/20 05/17/20 18:59 06:59 18:59 Intake Total 1040 1120 Output Total 900 Balance 1040 -900 1120 Weight 143.5 kg 144 kg Intake: Oral 1040 1120 Output: Urine 900 Other: Voiding Method Bedside Commode # Voids 1 - Exam GENERAL EXAM: Alert, pleasant 59-year-old female, currently on BiPAP 10/5 and 80% FiO2, comfortable in no apparent distress. HEAD: Normocephalic. EYES: Normal reaction of pupils, equal size. NOSE: Clear with pink turbinates. THROAT: No erythema or exudates. NECK: No masses, no JVD. CHEST: No chest wall deformity. LUNGS: Equal air entry with crackles in the bilateral posterior bases. CVS: S1 and S2 normal with no audible murmur, regular rhythm. ABDOMEN: No hepatosplenomegaly, normal bowel sounds, no guarding or rigidity. SPINE: No scoliosis or deformity SKIN: No rashes CENTRAL NERVOUS SYSTEM: No focal deficits, tone is normal in all 4 extremities. EXTREMITIES: There is no peripheral edema. No clubbing, no cyanosis. Peripheral pulses are intact. - Labs CBC & Chem 7: 05/13/20 07:23 05/17/20 05:51 Labs: Abnormal Lab Results - Last 24 Hours (Table) 05/16/20 05/17/20 05/17/20 Range/Units 20:34 05:51 06:09 Sodium 133 L (137-145) mmol/L Chloride 97 L (98-107) mmol/L Carbon Dioxide 35 H (22-30) mmol/L BUN 20 H (7-17) mg/dL Glucose 166 H (74-99) mg/dL POC Glucose (mg/dL) 144 H 171 H (75-99) mg/dL Calcium 8.3 L (8.4-10.2) mg/dL 05/17/20 05/17/20 Range/Units 11:32 17:14 Sodium (137-145) mmol/L Chloride (98-107) mmol/L Carbon Dioxide (22-30) mmol/L BUN (7-17) mg/dL Glucose (74-99) mg/dL POC Glucose (mg/dL) 132 H 120 H (75-99) mg/dL Calcium (8.4-10.2) mg/dL Assessment and Plan Assessment: 1 acute Covid 19 related pneumonia, symptoms started on 04/28/2020, diagnosed to be positive on 04/29/2020 and currently presenting with worsening shortness of breath and hypoxic respiratory failure, after being on 4 L the patient progressed to high flow and currently she is on a BiPAP and she does developed diffuse bilateral pulmonary infiltrates. She has completed Remdesivir, she received tocilizumab and convalescent plasma. 2 acute hypoxic respiratory failure secondary to above 3 fever secondary to above number recovered 4 leukopenia, lymphopenia and thrombocytopenia secondary to above, white cell count remains low 5 mild elevation of inflammatory markers secondary to Covid 19 infection 6 obesity with a BMI of 49.0 7 diabetes mellitus type 2 8 hypertension 9 hyperlipidemia 10 hypothyroidism Plan The patient was seen and evaluated by Dr. Franklin Chest x-ray and labs reviewed Remains on Decadron, Lovenox, vitamin supplements Remains on BiPAP 10/5 and 80% FiO2 Titrate down the FiO2 as tolerated She has been slow to progress We'll continue to follow I, the cosigning physician, performed a history & physical examination of the patient. Lungs sounds with crackles in bilateral bases. Maintaining good O2 saturations in the 90s on BiPAP 10/5 and 80% FiO2. I discussed the assessment and plan of care with my nurse practitioner, Suly Iverson. I attest to the above note as dictated by her.
[2020-05-17] MEDS: BACLOFEN 10 MG TAB PO SCH (21:09)
[2020-05-17 21:17] LABS: Glucose,Whole Blood 170 mg/dL (75-99)
[2020-05-17] MEDS: INSULIN DETEMIR (LEVEMIR) 100 UNIT/ML SYR SQ SCH (21:18)
--- NOTE | 2020-05-17 23:34 | PN ---
PROGRESS NOTE DATE OF SERVICE: 05/17/2020 REASON FOR FOLLOWUP: COVID-19 pneumonia. INTERVAL HISTORY: The patient remains afebrile. The patient is hemodynamically stable. The patient remains BiPAP-dependent. FiO2 is up to 80%. However, the patient denies having any chest pain or shortness of breath or cough. Feeling slightly better. PHYSICAL EXAMINATION: Blood pressure 123/55 with a pulse of 80, temperature 98.3. She is 92% on BiPAP. General description is a middle-aged female lying in bed in no distress. RESPIRATORY SYSTEM: Unlabored breathing with decreased intensity of breath sounds. No wheeze. HEART: S1, S2. Regular rate and rhythm. ABDOMEN: Soft. No tenderness. LABS: BUN of 20, creatinine 0.67. Blood culture has been negative. DIAGNOSTIC IMPRESSION AND PLAN: Patient with acute respiratory failure secondary to COVID-19 infection in this patient on Lovenox, Solu-Medrol, zinc and ascorbic acid; to continue. No evidence of any secondary bacterial pneumonia. Hold on any systemic antibiotic therapy. MMODL / IJN: [id number] /
[2020-05-18 06:22] LABS: Glucose,Whole Blood 163 mg/dL (75-99)
[2020-05-18] MEDS: PANTOPRAZOLE 40 MG TABLET PO SCH ×2 (06:50→17:33)
[2020-05-18] MEDS: LEVOTHYROXINE 75 MCG TAB PO SCH (06:50)
[2020-05-18] MEDS: methylPREDNISolone SOD SUCCI 125 MG/2 ML VIAL IV SCH ×4 (06:50→23:35)
[2020-05-18] MEDS: metFORMIN 500 MG TAB PO SCH ×3 (06:50→17:33)
[2020-05-18] MEDS: GLIMEPIRIDE 4 MG TAB PO SCH (07:03)
[2020-05-18] MEDS: INSULIN ASPART (NovoLOG) 100 UNIT/ML VIAL SQ SCH ×7 (07:03→21:23)
[2020-05-18] MEDS: MAG HYDROX/AL HYDROX/SIMETH 30 ML CUP PO SCH ×4 (08:42→21:22)
[2020-05-18] MEDS: allopurinoL 100 MG TAB PO SCH (08:42)
[2020-05-18] MEDS: lisinopriL 10 MG TAB PO SCH (08:43)
[2020-05-18] MEDS: GABAPENTIN 300 MG CAP PO SCH ×4 (08:43→21:22)
[2020-05-18] MEDS: ATORVASTATIN 40 MG TAB PO SCH (08:43)
[2020-05-18] MEDS: ASCORBIC ACID 500 MG TAB PO SCH (08:43)
[2020-05-18] MEDS: FERROUS SULFATE 325 MG TAB PO SCH (08:43)
[2020-05-18] MEDS: ZINC SULFATE 220 MG CAP PO SCH (08:43)
[2020-05-18] MEDS: ENOXAPARIN 40 MG/0.4 ML SYRINGE SQ SCH (08:43)
[2020-05-18] MEDS: ESCITALOPRAM 20 MG TAB PO SCH (08:43)
[2020-05-18] MEDS: CHOLECALCIFEROL 25 MCG (1000 IU) TABLET PO SCH (08:43)
[2020-05-18 12:09] LABS: Glucose,Whole Blood 150 mg/dL (75-99)
[2020-05-18] MEDS: guaiFENesin SYRUP 100MG/5ML 200 MG/10 ML CUP PO PRN (12:24)
[2020-05-18] MEDS ORDERED: FUROSEMIDE 10 MG/ML 4 ML VIAL IV STA (14:22)
--- NOTE | 2020-05-18 16:38 | P.PN ---
Subjective Progress Note Date: 05/18/20 Principal diagnosis: Acute hypoxemic respiratory failure. Patient was reevaluated today on 05/09/2020, remains on BiPAP, she is on 100%, O2 sats is 94%. Surprisingly, the patient seems to be doing well in spite of her significant O2 requirement and BiPAP. Patient received REM, she also received convalescent plasma and ACTEMRA. And so far does not seem to be making that significant turnaround and significant clinical improvement. CBC and basic metabolic profile are normal except for WBC count is 2.0 today. Patient was reevaluated today on 05/10/2020, still requiring significant amount of FiO2, she remains on BiPAP at 90% FiO2, she is on IPAP of 10 and EPAP of 5, and O2 saturation remains marginal. Clinically however the patient feels better breathing easier, and have d-dimer is not that significantly elevated but it is nonetheless abnormal. Hence I recommended a CT angiogram of the chest to be done today. Renal profile is normal. CBC continues to show leukopenia with WBC count of 2.0. Electrolytes are normal. Patient was reevaluated today on 05/11/2020, patient is basically about the same. Remains on BiPAP. Her FiO2 is still at 90%, and her O2 saturation is in the low 90s. Patient is on IPAP of 10 and EPAP of 5, seems to be very comfortable. CT angiogram of the chest yesterday showed bilateral interstitial infiltrates, no evidence of thromboembolic disease/pulmonary embolism. WBC count is 2.2 hemoglobin is 11.6. A left lites are normal renal profile is normal clinically the patient is fairly comfortable, however she is still requiring significant high FiO2. Reevaluated today on 05/12/2020, patient is feeling much better today, breathing a lot easier, she is now on 80% FiO2 remains on BiPAP with IPAP of 10 and EPAP of 5. But her FiO2 was cut down to 80%, and I will cut it down further to 70% and her O2 saturation seems to be significantly improved. Patient feels that she felt much better after the Lasix was given yesterday. I will recommend another dose of Lasix to be given today. Her CT angiogram of the chest yesterday questioned mild interstitial edema. However I felt it was all related to her underlying Covid 19 pneumonitis. Nonetheless Lasix was given, and clinically the patient felt better. Labs today were all reviewed she had WBC count of 2.3 hemoglobin 12.4 lites are normal renal profile remains normal. Progress note dated 05/13/2020. Currently, the patient remains on BiPAP, at 70%. She's feeling better today. She feels less short of breath. Her BiPAP settings are IPAP 10, and EPAP 5. I did tell the patient to move around when she is lying in bed. She should lie down on her right side, left side, supine, and if possible, try to prone herself. Current laboratory data includes a white count of 2, hemoglobin 11.7, hematocrit 35.2, platelet count 94,000. Sodium is 136, potassium 3.4, chlorides 101, CO2 33, anion gap 2, BUN [address], [address] angiogram on May 10 showed no evidence of pulmonary embolism, but did show moderately severe pulmonary interstitial edema/infiltrates. Progress note dated 05/14/2020. The patient remains on BiPAP at 70%. She feels much improved. Her IPAP of 10 and EPAP is fine. She's feeling much less short of breath. I did tell her to move around in bed, right side down, left side down, supine, and even on her stomach if she can. No new labs today to look at. No recent chest x-rays to evaluate either. Medications are appropriate at this time. CT angiogram from May 10 is reviewed. Progress note dated 05/15/2020. The patient remains on BiPAP, settings of IPAP 10, and EPAP of 5. She is on 70%. Her saturations are right around 90% or so. Despite that, the patient states that she is feeling much better. She has been moving around in bed. His been laying on her right side, left side, supine, even on her stomach at times. No new labs today other than a sodium of 137, potassium 4, chloride 98, CO2 34, anion gap 5, BUN 19, creatinine 0.67. Progress note dated 05/18/2020. The patient remains on BiPAP, with settings of IPAP 10, EPAP 5, and 100%. The patient really has not seemed to get any better recently. Chest x-ray has been ordered. The patient complains of shortness of breath with any activity. Currently, the patient's temperature is 98.3, heart rate 73, respiratory rate 18-20 breaths per minute, blood pressure 103/60. There are no new labs today. Her most recent chest x-ray does show some worsening. Microbiology is on negative. The patient will get some Lasix today. Objective - Vital Signs Vital signs: Vital Signs Temp 98.3 F 05/18/20 12:00 Pulse 73 05/18/20 12:10 Resp 18 05/18/20 12:10 BP 103/60 05/18/20 12:00 Pulse Ox 93 L 05/18/20 12:00 Intake & Output 05/17/20 05/18/20 05/18/20 18:59 06:59 18:59 Intake Total 1680 240 Balance 1680 240 Weight 145 kg Intake: Oral 1680 240 Other: Voiding Method Bedside Commode # Voids 1 # Bowel Movements 1 - Exam No acute distress, oriented 3. Patient currently on BiPAP. Laying in bed. Saturations 90%. The patient is quite obese. Patient is on 100%. HEENT examination is grossly unremarkable. Neck supple. Full range of motion. No adenopathy thyromegaly or neck vein distention. Cardiovascular examination reveals regular rhythm rate. S1-S2 normal. No S3 or S4. No discernible murmur noted. Heart sounds are distant. Heart rate 73 bpm. Lungs reveal bilateral coarse rhonchi and crackles. Breath sounds equal bilaterally. There are no wheezes. Lung examination is a bit worse today. Abdomen soft bowel sounds are heard. No masses or tenderness. Extremities are intact. No cyanosis clubbing or edema. Skin is without rash or lesion. Neurologic examination is brief but nonfocal. - Labs CBC & Chem 7: 05/13/20 07:23 05/17/20 05:51 Labs: Abnormal Lab Results - Last 24 Hours (Table) 05/17/20 05/17/20 05/18/20 Range/Units 17:14 20:55 06:21 POC Glucose (mg/dL) 120 H 170 H 163 H (75-99) mg/dL 05/18/20 Range/Units 12:00 POC Glucose (mg/dL) 150 H (75-99) mg/dL Assessment and Plan Assessment: Acute COVID 19 pneumonia, with hypoxemic respiratory failure. Obesity. Diabetes mellitus, type II. History of hypertension. Hyperlipidemia by history. Hypothyroidism. Plan: Plan dated 05/13/2020. The patient remains on BiPAP. We'll continue to titrate the FiO2 down. The patient continues on the appropriate vitamins according vitamin C, vitamin D3, and zinc. In addition, the patient did receive convalescent plasma, REM, and TOCI. The patient also continues on Lovenox, and Solu-Medrol. We will continue to follow. Prognosis is guarded. We'll continue to make recommendations were appropriate. The patient appears to be in good spirits which is a positive thing. Plan dated 05/14/2020. Currently, the patient remains on BiPAP. She is on 70%. Her saturations are in the mid to low 90s. She is feeling better. She has been moving around in bed as instructed. She denies any fever or chills. She denies any cough or phlegm production. She denies any chest pain. There are no new labs or x-rays to review. We will continue to follow. Her medications are reviewed. Everything seems appropriate. She seems be moving in a positive direction. Plan dated 05/15/2020. The patient remains on BiPAP with similar settings as yesterday. She clinically feels better. She feels less short of breath. She has been moving around in bed as instructed. We will continue to follow the patient. No additional recommendations are made. Overall prognosis is guarded. She is on appropriate medications. Plan dated 05/18/2020. The patient remains on BiPAP with IPAP of 10, EPAP of 5, and 100%. Yesterday, she was down to 70%. The patient appears not to be improving. A chest x-ray done yesterday shows worsening infiltrates. The patient gets Lasix 40 mg IV p ush today. We will have to watch her very carefully, she may need to come down to the intensive care unit, and things continue to worsen. Additional recommendations and suggestions are forthcoming. Prognosis is guarded. We will continue to follow this patient and make recommendations where appropriate. Time with Patient: Less than 30
[2020-05-18 16:57] LABS: Glucose,Whole Blood 157 mg/dL (75-99)
--- NOTE | 2020-05-18 19:53 | PN ---
PROGRESS NOTE DATE OF SERVICE: 05/18/2020 REASON FOR FOLLOWUP: COVID-19 infection. INTERVAL HISTORY: The patient is currently afebrile. The patient is breathing comfortably. Complaining of feeling tired. No energy. No chest pain. No worsening cough. No nausea, no vomiting. No abdominal pain. No diarrhea. PHYSICAL EXAMINATION: Blood pressure 103/60 with a pulse of 73, temperature 98.2. She is 93% on 100% BiPAP. General description is a middle-aged female up in the bed in no distress. Respiratory system: Unlabored breathing, decreased intensity in breath sounds. No wheeze. Heart S1, S2. Regular rate and rhythm. ABDOMEN: Soft, no tenderness. LABS: No new labs have been obtained today. Chest x-ray last completed yesterday slightly worsening from previous x-ray. DIAGNOSIS IMPRESSION AND PLAN: Patient with acute COVID-19 pneumonia in this patient seemed to have worsening of her respiratory status, now on 100% FiO2. The patient has been on Solu-Medrol and zinc, Lovenox, may benefit from Actemra. Will discuss with Pulmonary. Continue supportive care. MMODL / IJN: [id number] /
[2020-05-18 21:00] LABS: Glucose,Whole Blood 177 mg/dL (75-99)
[2020-05-18] MEDS: BACLOFEN 10 MG TAB PO SCH (21:22)
[2020-05-18] MEDS: INSULIN DETEMIR (LEVEMIR) 100 UNIT/ML SYR SQ SCH (21:23)
--- NOTE | 2020-05-19 01:13 | P.PN ---
Subjective This is a pleasant 59 years old female with past medical history of hypertension, hyperlipidemia, hyperthyroidism, type 2 diabetes mellitus, GERD, G I bleed. Presents with respiratory symptoms secondary to acute [place] infection on both sides with acute hypoxic respiratory failure needing BiPAP machine to keep oxygen saturation above 90%. She is still on BiPAP machine and her FiO2 increased from 7200% She is hemodynamically stable. Labs showing bicytopenia with WBC 12.0, platelets 94. D-dimer slightly elevated at 0.92. Chest x-ray bilateral infiltrates Patient remains on Solu-Medrol 60 mg, vitamin C, D and zinc. Protonix oral 40 twice a day and Levemir 15 units and metformin 500 mg twice a day prednisone 2 at 5 units with meals. Objective - Vital Signs Vital signs: Vital Signs Temp 98.2 F 05/18/20 19:42 Pulse 82 05/18/20 19:42 Resp 25 H 05/18/20 19:42 BP 112/59 05/18/20 19:42 Pulse Ox 92 L 05/18/20 19:42 Intake & Output 05/18/20 05/18/20 05/19/20 06:59 18:59 06:59 Intake Total 480 Output Total 1100 Balance 480 -1100 Weight 145 kg Intake: Oral 480 Output: Urine 1100 Other: Voiding Method Bedside Commode Bedside Commode # Voids 1 2 # Bowel Movements 1 - Exam -GENERAL: The patient is alert and oriented x3, not in any acute distress. On BiPAP HEENT: Pupils are round and equally reacting to light. EOMI. No scleral icterus. No conjunctival pallor. Normocephalic, atraumatic. No pharyngeal erythema. No thyromegaly. CARDIOVASCULAR: S1 and S2 present. No murmurs, rubs, or gallops. PULMONARY: Chest is clear to auscultation, no wheezing or crackles. ABDOMEN: Soft, nontender, nondistended, normoactive bowel sounds. No palpable organomegaly. MUSCULOSKELETAL: No joint swelling or deformity. EXTREMITIES: No cyanosis, clubbing, or pedal edema. NEUROLOGICAL: Gross neurological examination did not reveal any focal deficits. SKIN: No rashes. no petechiae. - Labs CBC & Chem 7: 05/13/20 07:23 05/17/20 05:51 Labs: Abnormal Lab Results - Last 24 Hours (Table) 05/18/20 05/18/20 05/18/20 Range/Units 06:21 12:00 16:54 POC Glucose (mg/dL) 163 H 150 H 157 H (75-99) mg/dL 05/18/20 Range/Units 20:26 POC Glucose (mg/dL) 177 H (75-99) mg/dL Assessment and Plan Assessment: Acute bilateral covid pneumonia Acute hypoxic respiratory failure Increased inflammatory markers biytopenia, with low WBC and platelets count, could be related to Covid infection Type 2 diabetes mellitus Hypertension Hyperlipidemia Hyperthyroidism Current History of GI bleed Morbid obesity with BMI of 47 Plan: This is a pleasant 59 years old female who presents with Covid and hypoxia. Continue with steroids, zinc and vitamin C. Continue with Lovenox. Continue the breathing treatments and oxygen as needed. Pulmonary team on the case. Infectious disease consult Monitor inflammatory markers. Continue with BiPAP as tolerated Labs and medication were reviewed.. Continue same treatment. Continue with symptomatic treatment. Resume home medication. Monitor lytes and vitals. DVT and GI prophylaxis. Further recommendations as per clinical course of the patient DVT prophylaxis: Subcutaneous Lovenox GI Prophylaxis: Pepcid Prognosis is guarded
[2020-05-19 05:55] LABS: Glucose,Whole Blood 179 mg/dL (75-99)
[2020-05-19] MEDS: PANTOPRAZOLE 40 MG TABLET PO SCH ×2 (06:33→17:29)
[2020-05-19] MEDS: LEVOTHYROXINE 75 MCG TAB PO SCH (06:34)
[2020-05-19] MEDS: GLIMEPIRIDE 4 MG TAB PO SCH (06:34)
[2020-05-19] MEDS: metFORMIN 500 MG TAB PO SCH ×3 (06:34→17:29)
[2020-05-19] MEDS: methylPREDNISolone SOD SUCCI 125 MG/2 ML VIAL IV SCH ×4 (06:36→23:52)
[2020-05-19] MEDS: INSULIN ASPART (NovoLOG) 100 UNIT/ML VIAL SQ SCH ×7 (07:13→20:29)
[2020-05-19 07:20] LABS: Glucose,Whole Blood 162 mg/dL (75-99)
[2020-05-19] MEDS: ASCORBIC ACID 500 MG TAB PO SCH (09:05)
[2020-05-19] MEDS: ENOXAPARIN 40 MG/0.4 ML SYRINGE SQ SCH (09:05)
[2020-05-19] MEDS: ATORVASTATIN 40 MG TAB PO SCH (09:06)
[2020-05-19] MEDS: GABAPENTIN 300 MG CAP PO SCH ×4 (09:06→20:28)
[2020-05-19] MEDS: CHOLECALCIFEROL 25 MCG (1000 IU) TABLET PO SCH (09:06)
[2020-05-19] MEDS: FERROUS SULFATE 325 MG TAB PO SCH (09:06)
[2020-05-19] MEDS: ZINC SULFATE 220 MG CAP PO SCH (09:06)
[2020-05-19] MEDS: lisinopriL 10 MG TAB PO SCH (09:06)
[2020-05-19] MEDS: CYANOCOBALAMIN 500 MCG TAB PO SCH (09:06)
[2020-05-19] MEDS: allopurinoL 100 MG TAB PO SCH (09:06)
[2020-05-19] MEDS: ESCITALOPRAM 20 MG TAB PO SCH (09:06)
[2020-05-19] MEDS: MAG HYDROX/AL HYDROX/SIMETH 30 ML CUP PO SCH ×4 (09:06→20:29)
[2020-05-19 09:07] LABS: African American GFR (CKD) >90 (>60 ml/min/1.73 sqM); Anion Gap 0 mmol/L; Blood Urea Nitrogen 24 mg/dL (7-17); Calcium 8.5 mg/dL (8.4-10.2); Carbon Dioxide 38 mmol/L (22-30); Chloride 95 mmol/L (98-107); Glucose 194 mg/dL (74-99); Non-African American GFR(CKD) >90 (>60 ml/min/1.73 sqM); Potassium 4.5 mmol/L (3.5-5.1); Sodium 133 mmol/L (137-145)
[2020-05-19 09:21] LABS: Anisocytosis Slight; Basophils % (A) 0 %; Eosinophils % (A) 0 %; HCT 39.1 % (34.0-46.0); HGB 12.6 gm/dL (11.4-16.0); Lymphocytes # (A) 0.3 k/uL (1.0-4.8); Lymphocytes % (A) 8 %; MCH 28.5 pg (25.0-35.0); MCHC 32.2 g/dL (31.0-37.0); MCV 88.6 fL (80.0-100.0); Mean Platelet Volume 9.9; Monocytes # (A) 0.2 k/uL (0-1.0); Monocytes % (A) 4 %; Neutrophils # (A) 3.7 k/uL (1.3-7.7); Neutrophils % (A) 88 %; RBC 4.42 m/uL (3.80-5.40); RDW 16.8 % (11.5-15.5); WBC 4.3 k/uL (3.8-10.6)
[2020-05-19 09:46] LABS: Platelet Count 37 k/uL (150-450)
[2020-05-19 09:48] LABS: Poikilocytosis (M) Present
[2020-05-19 11:56] LABS: Glucose,Whole Blood 137 mg/dL (75-99)
--- NOTE | 2020-05-19 14:32 | P.PN ---
Subjective This is a pleasant 59 years old female with past medical history of hypertension, hyperlipidemia, hyperthyroidism, type 2 diabetes mellitus, GERD, G I bleed. Presents with respiratory symptoms secondary to acute [place] infection on both sides with acute hypoxic respiratory failure needing BiPAP machine to keep oxygen saturation above 90%. She is still on BiPAP machine and her FiO2 increased from 7200% She is hemodynamically stable. Labs showing bicytopenia with WBC 12.0, platelets 94. D-dimer slightly elevated at 0.92. Chest x-ray bilateral infiltrates Patient remains on Solu-Medrol 60 mg, vitamin C, D and zinc. Protonix oral 40 twice a day and Levemir 15 units and metformin 500 mg twice a day prednisone 2 at 5 units with meals. 05/19/2020 Patient remains on BiPAP with FiO2 of 100% with a setting of /. She looks her dyspnea from yesterday with no worsening. Afebrile. The rest of vitals are stable labs showing a drop platelets down to 37K. d-dimer was 0.9 on 05/07. BMP is unremarkable, glucose is controlled Infectious disease are considering tocizilumab, patient is also followed closely by pulmonary service Patient remains on Solu-Medrol 60 mg, Protonix by mouth twice a day, multiple vitamins protocol for covid, glucose better controlled after adequate 5 units with meals, continue with Levemir 15 units at bedtime and metformin 500 mg twice a day Objective - Vital Signs Vital signs: Vital Signs Temp 98 F 05/19/20 12:00 Pulse 77 05/19/20 13:08 Resp 18 05/19/20 13:08 BP 105/53 05/19/20 12:00 Pulse Ox 89 L 05/19/20 12:00 Intake & Output 05/18/20 05/19/20 05/19/20 18:59 06:59 18:59 Intake Total 480 Output Total 1500 Balance 480 -1500 Weight 144 kg Intake: Oral 480 Output: Urine 1500 Other: Voiding Method Bedside Commode # Voids 1 - Exam -GENERAL: The patient is alert and oriented x3, not in any acute distress. On BiPAP HEENT: Pupils are round and equally reacting to light. EOMI. No scleral icterus. No conjunctival pallor. Normocephalic, atraumatic. No pharyngeal erythema. No thyromegaly. CARDIOVASCULAR: S1 and S2 present. No murmurs, rubs, or gallops. PULMONARY: Chest is clear to auscultation, no wheezing or crackles. ABDOMEN: Soft, nontender, nondistended, normoactive bowel sounds. No palpable organomegaly. MUSCULOSKELETAL: No joint swelling or deformity. EXTREMITIES: No cyanosis, clubbing, or pedal edema. NEUROLOGICAL: Gross neurological examination did not reveal any focal deficits. SKIN: No rashes. no petechiae. - Labs CBC & Chem 7: 05/19/20 08:27 05/19/20 08:27 Labs: Abnormal Lab Results - Last 24 Hours (Table) 05/18/20 05/18/20 05/19/20 Range/Units 16:54 20:26 05:53 RDW (11.5-15.5) % Plt Count (150-450) k/uL Lymphocytes # (1.0-4.8) k/uL Sodium (137-145) mmol/L Chloride (98-107) mmol/L Carbon Dioxide (22-30) mmol/L BUN (7-17) mg/dL Glucose (74-99) mg/dL POC Glucose (mg/dL) 157 H 177 H 179 H (75-99) mg/dL 05/19/20 05/19/20 05/19/20 Range/Units 07:08 08:27 08:27 RDW 16.8 H (11.5-15.5) % Plt Count 37 L D (150-450) k/uL Lymphocytes # 0.3 L (1.0-4.8) k/uL Sodium 133 L (137-145) mmol/L Chloride 95 L (98-107) mmol/L Carbon Dioxide 38 H (22-30) mmol/L BUN 24 H (7-17) mg/dL Glucose 194 H (74-99) mg/dL POC Glucose (mg/dL) 162 H (75-99) mg/dL 05/19/20 Range/Units 11:35 RDW (11.5-15.5) % Plt Count (150-450) k/uL Lymphocytes # (1.0-4.8) k/uL Sodium (137-145) mmol/L Chloride (98-107) mmol/L Carbon Dioxide (22-30) mmol/L BUN (7-17) mg/dL Glucose (74-99) mg/dL POC Glucose (mg/dL) 137 H (75-99) mg/dL Assessment and Plan Assessment: Acute bilateral covid pneumonia Acute hypoxic respiratory failure Increased inflammatory markers biytopenia, with low WBC and platelets count, could be related to Covid infection Type 2 diabetes mellitus Hypertension Hyperlipidemia Hyperthyroidism Current History of GI bleed Morbid obesity with BMI of 47 Plan: This is a pleasant 59 years old female who presents with Covid and hypoxia. Continue with steroids, zinc and vitamin C. hold Lovenox due to platelets less than 50 K and monitor count. Continue the breathing treatments and oxygen as needed. Pulmonary team on the case. Infectious disease consult Monitor inflammatory markers. Continue with BiPAP as tolerated Labs and medication were reviewed.. Continue same treatment. Continue with symptomatic treatment. Resume home medication. Monitor lytes and vitals. DVT and GI prophylaxis. Further recommendations as per clinical course of the patient DVT prophylaxis: Subcutaneous Lovenox, on hold due to thrombocytopenia GI Prophylaxis: Pepcid Prognosis is guarded Discussed with pulmonary team Patient will be followed by Dr. Aviles team tomorrow
--- NOTE | 2020-05-19 16:37 | P.PN ---
Subjective Progress Note Date: 05/19/20 Principal diagnosis: Acute CoVID 19 pneumonia 79-year-old female patient, morbidly obese with a BMI of 47, was hospitalized for COVID 19 related pneumonia. The patient currently is hypoxic on 3 L of oxygen by nasal cannula. She has comorbidities including obesity with a BMI of 47, hypertension, diabetes mellitus and gout. She also has hyperlipidemia and hypothyroidism. The patient started getting symptoms approximately a week ago, on 04/28/2020 and the patient was diagnosed having Covid 19 infection for a primary care physician's office on 04/29.. She continued to have episodes of fever and subsequently she became progressively more short of breath necessitating emergency department visitation today and ultimately she was hospitalized. Her chest x-ray showing bilateral pulmonary infiltrates peripheral distribution more so on the right compared to the left. The patient was started on steroids.. She is slightly nauseated. She also has loss of taste and smell LDH level is currently at 802 with a CRP of 55 and she had a lactic acid level of 2.1 at the time of admission. There d-dimer is still pending for now. Her white cell count is at 1.4 and the patient is lymphopenic with a lymphocyte count of 0.6 and there is also a drop in her platelet count down to 80 and these are all manifestations of COVID 19 infection. On today's evaluation of 04/27/2020, the patient's oxygenation has gotten worse. I saw her in the emergency department yesterday and she was on 4 L. She progressively required higher oxygen flow and she went up to a high flow oxygen through the nasal cannula airvo which she feels a currently she is on a BiPAP at a pressure of 10/5 with an FiO2 of 100%. She is able to generate a tidal volume around 450-500. Respiratory rate is in the mid 30s low 40s. She feels well. She is in mild degree of respiratory distress. She is still able to converse and talk to her BiPAP mask. Her current pulse ox is 94%. 60 showing diffuse breath and pulmonary infiltrates consistent with Covid 19 related pneumonia. Her white cell count is still down at 1.2. Platelet count is at 70 now which is low. D-dimer is at 0.65, her LDH level is at 835 with a CRP of 56. She is on Decadron. I'm going to switch her to Solu-Medrol. She is currently taking REM should be considered for convalescent plasma and addition to Tocilizumab The patient is seen today 05/06/2020 in follow-up on the regular medical floor. She is currently sitting up in bed. Awake and alert in no acute distress. Currently on BiPAP 10/5 and 100% FiO2. Current saturation 88%. Chest x-ray reveals mild, medically. Residual bilateral airspace disease. Improving compared to previous. This is day #3 of Remdesivir. She received convalescent plasma 1, tocilizumab. D-dimer 0.84. C-reactive protein 2.8. LDH 459. She remains on Decadron, IV Solu-Medrol, vitamin supplements. Patient was reevaluated today on 05/09/2020, remains on BiPAP, she is on 100%, O2 sats is 94%. Surprisingly, the patient seems to be doing well in spite of her significant O2 requirement and BiPAP. Patient received REM, she also received convalescent plasma and ACTEMRA. And so far does not seem to be making that significant turnaround and significant clinical improvement. CBC and basic metabolic profile are normal except for WBC count is 2.0 today. Patient was reevaluated today on 05/10/2020, still requiring significant amount of FiO2, she remains on BiPAP at 90% FiO2, she is on IPAP of 10 and EPAP of 5, and O2 saturation remains marginal. Clinically however the patient feels better breathing easier, and have d-dimer is not that significantly elevated but it is nonetheless abnormal. Hence I recommended a CT angiogram of the chest to be done today. Renal profile is normal. CBC continues to show leukopenia with WBC count of 2.0. Electrolytes are normal. Patient was reevaluated today on 05/11/2020, patient is basically about the same. Remains on BiPAP. Her FiO2 is still at 90%, and her O2 saturation is in the low 90s. Patient is on IPAP of 10 and EPAP of 5, seems to be very comfortable. CT angiogram of the chest yesterday showed bilateral interstitial infiltrates, no evidence of thromboembolic disease/pulmonary embolism. WBC count is 2.2 hemoglobin is 11.6. A left lites are normal renal profile is normal clinically the patient is fairly comfortable, however she is still requiring significant high FiO2. Reevaluated today on 05/12/2020, patient is feeling much better today, breathing a lot easier, she is now on 80% FiO2 remains on BiPAP with IPAP of 10 and EPAP of 5. But her FiO2 was cut down to 80%, and I will cut it down further to 70% and her O2 saturation seems to be significantly improved. Patient feels that she felt much better after the Lasix was given yesterday. I will recommend another dose of Lasix to be given today. Her CT angiogram of the chest yesterday questioned mild interstitial edema. However I felt it was all related to her underlying Covid 19 pneumonitis. Nonetheless Lasix was given, and clinically the patient felt better. Labs today were all reviewed she had WBC count of 2.3 hemoglobin 12.4 lites are normal renal profile remains normal. Progress note dated 05/13/2020. Currently, the patient remains on BiPAP, at 70%. She's feeling better today. She feels less short of breath. Her BiPAP settings are IPAP 10, and EPAP 5. I did tell the patient to move around when she is lying in bed. She should lie down on her right side, left side, supine, and if possible, try to prone herself. Current laboratory data includes a white count of 2, hemoglobin 11.7, hematocrit 35.2, platelet count 94,000. Sodium is 136, potassium 3.4, chlorides 101, CO2 33, anion gap 2, BUN [address], [address] angiogram on May 10 showed no evidence of pulmonary embolism, but did show moderately severe pulmonary interstitial edema/infiltrates. Progress note dated 05/14/2020. The patient remains on BiPAP at 70%. She feels much improved. Her IPAP of 10 and EPAP is fine. She's feeling much less short of breath. I did tell her to move around in bed, right side down, left side down, supine, and even on her sto mach if she can. No new labs today to look at. No recent chest x-rays to evaluate either. Medications are appropriate at this time. CT angiogram from May 10 is reviewed. Progress note dated 05/15/2020. The patient remains on BiPAP, settings of IPAP 10, and EPAP of 5. She is on 70%. Her saturations are right around 90% or so. Despite that, the patient states that she is feeling much better. She has been moving around in bed. His been laying on her right side, left side, supine, even on her stomach at times. No new labs today other than a sodium of 137, potassium 4, chloride 98, CO2 34, anion gap 5, BUN 19, creatinine 0.67. The patient is seen today 05/16/2020 in follow-up on the selective care unit. She is currently resting fairly comfortably in bed. She is continued on BiPAP currently 10/5 and 70% FiO2. She is maintaining O2 saturations about 85-86%. Today she is feeling mostly tired and fatigued. Breathing is about the same. No better but no worse currently. She remains on IV Solu-Medrol, Lovenox, vitamin supplements. Blood glucose 146. The patient is seen today 05/17/2020 in follow-up on the selective care unit. She remains awake and alert in no acute distress. She is still requiring BiPAP support 10/5 and 80% FiO2 to maintain O2 saturations in the mid 80s. She's been afebrile. Hemodynamically stable. Chest x-ray reveals cardiomegaly, continued bilateral airspace disease, slightly worsened compared to previous. Sodium 133. Potassium 4.5. Creatinine 0.67. She remains on Lovenox, IV Solu-Medrol, vitamin supplements. The patient is seen today 05/19/2020 in follow-up on the selective care unit. She is currently sitting up at the bedside. Awake and alert in no acute distress. She is still on BiPAP 12/6 and 90% FiO2. White count 4.3. Hemoglobin 12.6. Platelet count dropped to 37,000. Lymphocytes 0.3. Sodium 133. Potassium 4.5. Creatinine 0.71. Remains on IV Solu-Medrol, vitamin supplements. Lovenox which will be held. Objective - Vital Signs Vital signs: Vital Signs Temp 98 F 05/19/20 12:00 Pulse 77 05/19/20 13:08 Resp 18 05/19/20 13:08 BP 105/53 05/19/20 12:00 Pulse Ox 89 L 05/19/20 12:00 Intake & Output 05/18/20 05/19/20 05/19/20 18:59 06:59 18:59 Intake Total 480 Output Total 1500 Balance 480 -1500 Weight 144 kg Intake: Oral 480 Output: Urine 1500 Other: Voiding Method Bedside Commode # Voids 1 - Exam GENERAL EXAM: Alert, pleasant 59-year-old female, currently on BiPAP 12/6 and 90% FiO2, comfortable in no apparent distress. HEAD: Normocephalic. EYES: Normal reaction of pupils, equal size. NOSE: Clear with pink turbinates. THROAT: No erythema or exudates. NECK: No masses, no JVD. CHEST: No chest wall deformity. LUNGS: Equal air entry with crackles in the bilateral posterior bases. CVS: S1 and S2 normal with no audible murmur, regular rhythm. ABDOMEN: No hepatosplenomegaly, normal bowel sounds, no guarding or rigidity. SPINE: No scoliosis or deformity SKIN: No rashes CENTRAL NERVOUS SYSTEM: No focal deficits, tone is normal in all 4 extremities. EXTREMITIES: There is no peripheral edema. No clubbing, no cyanosis. Peripheral pulses are intact. - Labs CBC & Chem 7: 05/19/20 08:27 05/19/20 08:27 Labs: Abnormal Lab Results - Last 24 Hours (Table) 05/18/20 05/18/20 05/19/20 Range/Units 16:54 20:26 05:53 RDW (11.5-15.5) % Plt Count (150-450) k/uL Lymphocytes # (1.0-4.8) k/uL Sodium (137-145) mmol/L Chloride (98-107) mmol/L Carbon Dioxide (22-30) mmol/L BUN (7-17) mg/dL Glucose (74-99) mg/dL POC Glucose (mg/dL) 157 H 177 H 179 H (75-99) mg/dL 05/19/20 05/19/20 05/19/20 Range/Units 07:08 08:27 08:27 RDW 16.8 H (11.5-15.5) % Plt Count 37 L D (150-450) k/uL Lymphocytes # 0.3 L (1.0-4.8) k/uL Sodium 133 L (137-145) mmol/L Chloride 95 L (98-107) mmol/L Carbon Dioxide 38 H (22-30) mmol/L BUN 24 H (7-17) mg/dL Glucose 194 H (74-99) mg/dL POC Glucose (mg/dL) 162 H (75-99) mg/dL 05/19/20 Range/Units 11:35 RDW (11.5-15.5) % Plt Count (150-450) k/uL Lymphocytes # (1.0-4.8) k/uL Sodium (137-145) mmol/L Chloride (98-107) mmol/L Carbon Dioxide (22-30) mmol/L BUN (7-17) mg/dL Glucose (74-99) mg/dL POC Glucose (mg/dL) 137 H (75-99) mg/dL Assessment and Plan Assessment: 1 Acute Covid 19 related pneumonia, symptoms started on 04/28/2020, diagnosed to be positive on 04/29/2020. Worsening shortness of breath and hypoxic respiratory failure. She has completed Remdesivir, tocilizumab and convalescent plasma. 2 Acute hypoxic respiratory failure secondary to above, currently on BiPAP 12/6 and 90% FiO2 3 Fever secondary to above number recovered 4 Leukopenia, lymphopenia and thrombocytopenia secondary to above, platelets down to 37,000 5 Mild elevation of inflammatory markers secondary to Covid 19 infection 6 Obesity with a BMI of 49.0 7 Diabetes mellitus type 2 8 Hypertension 9 Hyperlipidemia 10 Hypothyroidism Plan The patient was seen and evaluated by Dr. Franklin Remains on Decadron,vitamin supplements Lovenox to be held due to low platelet count Remains on BiPAP 12/6 and 90% FiO2 Titrate down the FiO2 as tolerated She has been slow to progress We'll continue to follow I, the cosigning physician, performed a history & physical examination of the patient. Lungs sounds with crackles in bilateral bases. Maintaining good O2 saturations in the 90s on BiPAP 12/6 and 90% FiO2. I discussed the assessment and plan of care with my nurse practitioner, Suly Iverson. I attest to the above note as dictated by her.
[2020-05-19 16:51] LABS: Glucose,Whole Blood 137 mg/dL (75-99)
[2020-05-19 19:46] LABS: Glucose,Whole Blood 196 mg/dL (75-99)
--- NOTE | 2020-05-19 19:54 | PN ---
PROGRESS NOTE DATE OF SERVICE: 05/19/2020 REASON FOR FOLLOW UP: COVID-19 pneumonia. INTERVAL HISTORY: Patient is currently afebrile. The patient is feeling better. FiO2 is down to 90%. The patient denies having any chest pain. Minimal cough. No nausea, no vomiting. No abdominal pain, no diarrhea. PHYSICAL EXAMINATION: Blood pressure 105/57, pulse of 71, temperature 0.7. She is 90% on 90% FiO2. General description is a middle-aged female lying in bed in no distress. Respiratory system: Unlabored breathing, decreased intensity of breath sounds. No wheeze. Heart: S1, S2. Regular rate and rhythm. Abdomen soft, no tenderness. LABS: Hemoglobin is 12.1, white count 4.3, BUN of 24, creatinine 0.71. DIAGNOSTIC IMPRESSION AND PLAN: Patient with acute COVID-19 infection. The patient has minimal clinical improvement. The patient at this time covered with Solu-Medrol, zinc and ascorbic acid, to continue while monitoring clinical course closely. Continue supportive care. negative. MMODL / IJN: [id number] /
[2020-05-19] MEDS: INSULIN DETEMIR (LEVEMIR) 100 UNIT/ML SYR SQ SCH (20:28)
[2020-05-19] MEDS: BACLOFEN 10 MG TAB PO SCH (20:28)
[2020-05-20 06:43] LABS: Glucose,Whole Blood 193 mg/dL (75-99)
[2020-05-20] MEDS: methylPREDNISolone SOD SUCCI 125 MG/2 ML VIAL IV SCH ×4 (06:49→23:49)
[2020-05-20] MEDS: LEVOTHYROXINE 75 MCG TAB PO SCH (06:49)
[2020-05-20] MEDS: PANTOPRAZOLE 40 MG TABLET PO SCH ×2 (06:49→17:36)
[2020-05-20] MEDS: GLIMEPIRIDE 4 MG TAB PO SCH (06:49)
[2020-05-20] MEDS: metFORMIN 500 MG TAB PO SCH ×3 (06:49→17:35)
[2020-05-20] MEDS: INSULIN ASPART (NovoLOG) 100 UNIT/ML VIAL SQ SCH ×7 (06:52→22:12)
[2020-05-20 07:53] LABS: Anisocytosis Slight; Basophils % (A) 0 %; Eosinophils % (A) 0 %; HCT 36.4 % (34.0-46.0); HGB 11.7 gm/dL (11.4-16.0); Lymphocytes # (A) 0.3 k/uL (1.0-4.8); Lymphocytes % (A) 9 %; MCH 28.3 pg (25.0-35.0); MCHC 32.1 g/dL (31.0-37.0); MCV 88.1 fL (80.0-100.0); Monocytes # (A) 0.2 k/uL (0-1.0); Monocytes % (A) 6 %; Neutrophils # (A) 2.4 k/uL (1.3-7.7); Neutrophils % (A) 84 %; RBC 4.14 m/uL (3.80-5.40); WBC 2.9 k/uL (3.8-10.6)
[2020-05-20 08:09] LABS: Platelet Count 30 k/uL (150-450)
[2020-05-20 08:18] LABS: African American GFR (CKD) >90 (>60 ml/min/1.73 sqM); Anion Gap 2 mmol/L; Blood Urea Nitrogen 26 mg/dL (7-17); Calcium 8.1 mg/dL (8.4-10.2); Carbon Dioxide 35 mmol/L (22-30); Chloride 96 mmol/L (98-107); Glucose 180 mg/dL (74-99); Magnesium 2.3 mg/dL (1.6-2.3); Non-African American GFR(CKD) >90 (>60 ml/min/1.73 sqM); Potassium 4.6 mmol/L (3.5-5.1); Sodium 133 mmol/L (137-145)
[2020-05-20] MEDS: CHOLECALCIFEROL 25 MCG (1000 IU) TABLET PO SCH (10:08)
[2020-05-20] MEDS: ZINC SULFATE 220 MG CAP PO SCH (10:09)
[2020-05-20] MEDS: ESCITALOPRAM 20 MG TAB PO SCH (10:09)
[2020-05-20] MEDS: CYANOCOBALAMIN 500 MCG TAB PO SCH (10:09)
[2020-05-20] MEDS: ASCORBIC ACID 500 MG TAB PO SCH (10:09)
[2020-05-20] MEDS: allopurinoL 100 MG TAB PO SCH (10:09)
[2020-05-20] MEDS: ATORVASTATIN 40 MG TAB PO SCH (10:09)
[2020-05-20] MEDS: MAG HYDROX/AL HYDROX/SIMETH 30 ML CUP PO SCH ×4 (10:09→22:13)
[2020-05-20] MEDS: lisinopriL 10 MG TAB PO SCH (10:09)
[2020-05-20] MEDS: FERROUS SULFATE 325 MG TAB PO SCH (10:09)
[2020-05-20] MEDS: GABAPENTIN 300 MG CAP PO SCH ×4 (10:09→22:11)
--- NOTE | 2020-05-20 10:38 | P.PN ---
Subjective Progress Note Date: 05/20/20 Acute CoVID 19 pneumonia 79-year-old female patient, morbidly obese with a BMI of 47, was hospitalized for COVID 19 related pneumonia. The patient currently is hypoxic on 3 L of oxygen by nasal cannula. She has comorbidities including obesity with a BMI of 47, hypertension, diabetes mellitus and gout. She also has hyperlipidemia and hypothyroidism. The patient started getting symptoms approximately a week ago, on 04/28/2020 and the patient was diagnosed having Covid 19 infection for a primary care physician's office on 04/29.. She continued to have episodes of fever and subsequently she became progressively more short of breath necessitating emergency department visitation today and ultimately she was hospitalized. Her chest x-ray showing bilateral pulmonary infiltrates peripheral distribution more so on the right compared to the left. The patient was started on steroids.. She is slightly nauseated. She also has loss of taste and smell LDH level is currently at 802 with a CRP of 55 and she had a lactic acid level of 2.1 at the time of admission. There d-dimer is still pending for now. Her white cell count is at 1.4 and the patient is lymphopenic with a lymphocyte count of 0.6 and there is also a drop in her platelet count down to 80 and these are all manifestations of COVID 19 infection. On today's evaluation of 04/27/2020, the patient's oxygenation has gotten worse. I saw her in the emergency department yesterday and she was on 4 L. She progressively required higher oxygen flow and she went up to a high flow oxygen through the nasal cannula airvo which she feels a currently she is on a BiPAP at a pressure of 10/5 with an FiO2 of 100%. She is able to generate a tidal volume around 450-500. Respiratory rate is in the mid 30s low 40s. She feels well. She is in mild degree of respiratory distress. She is still able to converse and talk to her BiPAP mask. Her current pulse ox is 94%. 60 showing diffuse breath and pulmonary infiltrates consistent with Covid 19 related pneumonia. Her white cell count is still down at 1.2. Platelet count is at 70 now which is low. D-dimer is at 0.65, her LDH level is at 835 with a CRP of 56. She is on Decadron. I'm going to switch her to Solu-Medrol. She is currently taking REM should be considered for convalescent plasma and addition to Tocilizumab The patient is seen today 05/06/2020 in follow-up on the regular medical floor. She is currently sitting up in bed. Awake and alert in no acute distress. Currently on BiPAP 10/5 and 100% FiO2. Current saturation 88%. Chest x-ray reveals mild, medically. Residual bilateral airspace disease. Improving compared to previous. This is day #3 of Remdesivir. She received convalescent plasma 1, tocilizumab. D-dimer 0.84. C-reactive protein 2.8. LDH 459. She remains on Decadron, IV Solu-Medrol, vitamin supplements. Patient was reevaluated today on 05/09/2020, remains on BiPAP, she is on 100%, O2 sats is 94%. Surprisingly, the patient seems to be doing well in spite of her significant O2 requirement and BiPAP. Patient received REM, she also received convalescent plasma and ACTEMRA. And so far does not seem to be making that significant turnaround and significant clinical improvement. CBC and basic metabolic profile are normal except for WBC count is 2.0 today. Patient was reevaluated today on 05/10/2020, still requiring significant amount of FiO2, she remains on BiPAP at 90% FiO2, she is on IPAP of 10 and EPAP of 5, and O2 saturation remains marginal. Clinically however the patient feels better mikhail athing easier, and have d-dimer is not that significantly elevated but it is nonetheless abnormal. Hence I recommended a CT angiogram of the chest to be done today. Renal profile is normal. CBC continues to show leukopenia with WBC count of 2.0. Electrolytes are normal. Patient was reevaluated today on 05/11/2020, patient is basically about the same. Remains on BiPAP. Her FiO2 is still at 90%, and her O2 saturation is in the low 90s. Patient is on IPAP of 10 and EPAP of 5, seems to be very comfortable. CT angiogram of the chest yesterday showed bilateral interstitial infiltrates, no evidence of thromboembolic disease/pulmonary embolism. WBC count is 2.2 hemoglobin is 11.6. A left lites are normal renal profile is normal clinically the patient is fairly comfortable, however she is still requiring significant high FiO2. Reevaluated today on 05/12/2020, patient is feeling much better today, breathing a lot easier, she is now on 80% FiO2 remains on BiPAP with IPAP of 10 and EPAP of 5. But her FiO2 was cut down to 80%, and I will cut it down further to 70% and her O2 saturation seems to be significantly improved. Patient feels that she felt much better after the Lasix was given yesterday. I will recommend another dose of Lasix to be given today. Her CT angiogram of the chest yesterday questioned mild interstitial edema. However I felt it was all related to her underlying Covid 19 pneumonitis. Nonetheless Lasix was given, and clinically the patient felt better. Labs today were all reviewed she had WBC count of 2.3 hemoglobin 12.4 lites are normal renal profile remains normal. Progress note dated 05/13/2020. Currently, the patient remains on BiPAP, at 70%. She's feeling better today. She feels less short of breath. Her BiPAP settings are IPAP 10, and EPAP 5. I did tell the patient to move around when she is lying in bed. She should lie down on her right side, left side, supine, and if possible, try to prone herself. Current laboratory data includes a white count of 2, hemoglobin 11.7, hematocrit 35.2, platelet count 94,000. Sodium is 136, potassium 3.4, chlorides 101, CO2 33, anion gap 2, BUN [address], [address] angiogram on May 10 showed no evidence of pulmonary embolism, but did show moderately severe pulmonary interstitial edema/infiltrates. Progress note dated 05/14/2020. The patient remains on BiPAP at 70%. She feels much improved. Her IPAP of 10 and EPAP is fine. She's feeling much less short of breath. I did tell her to move around in bed, right side down, left side down, supine, and even on her stomach if she can. No new labs today to look at. No recent chest x-rays to evaluate either. Medications are appropriate at this time. CT angiogram from May 10 is reviewed. Progress note dated 05/15/2020. The patient remains on BiPAP, settings of IPAP 10, and EPAP of 5. She is on 70%. Her saturations are right around 90% or so. Despite that, the patient states that she is feeling much better. She has been moving around in bed. His been laying on her right side, left side, supine, even on her stomach at times. No new labs today other than a sodium of 137, potassium 4, chloride 98, CO2 34, anion gap 5, BUN 19, creatinine 0.67. The patient is seen today 05/16/2020 in follow-up on the selective care unit. She is currently resting fairly comfortably in bed. She is continued on BiPAP currently 10/5 and 70% FiO2. She is maintaining O2 saturations about 85-86%. Today she is feeling mostly tired and fatigued. Breathing is about the same. No better but no worse currently. She remains on IV Solu-Medrol, Lovenox, vitamin supplements. Blood glucose 146. The patient is seen today 05/17/2020 in follow-up on the selective care unit. She remains awake and alert in no acute distress. She is still requiring BiPAP support 10/5 and 80% FiO2 to maintain O2 saturations in the mid 80s. She's been afebrile. Hemodynamically stable. Chest x-ray reveals cardiomegaly, continued bilateral airspace disease, slightly worsened compared to previous. Sodium 133. Potassium 4.5. Creatinine 0.67. She remains on Lovenox, IV Solu-Medrol, vitamin supplements. The patient is seen today 05/19/2020 in follow-up on the selective care unit. She is currently sitting up at the bedside. Awake and alert in no acute distress. She is still on BiPAP 12/6 and 90% FiO2. White count 4.3. Hemoglobin 12.6. Platelet count dropped to 37,000. Lymphocytes 0.3. Sodium 133. Potassium 4.5. Creatinine 0.71. Remains on IV Solu-Medrol, vitamin supplements. Lovenox which will be held. 05/20/2020 the patient is being seen for a follow-up. The patient remains on BiPAP at a pressure of 12/6 with an FiO2 of 90%. Remains on IV Solu-Medrol. She is awake and alert. She denies having any significant shortness of breath. Hemodynamically stable. She had prolonged hospitalization due to complications of Covid 19. She is a morbidly obese female patient with a BMI of 49. She was initially on 3 L about 2 by nasal cannula. She is known to have diabetes, gout and hypertension and hyperlipidemia and hypothyroidism. The patient was diagnosed on 04/28/2020 and since then her condition progressively decompen sated. She was aggressively treated over the past 2 weeks here in the hospital and her blood work showing a component of thrombocytopenia, for that reason anticoagulation was held. The patient remains on IV Solu-Medrol. She is taking 60 mg IV every 6 hours. The last chest x-ray was done on May 17 the patient had bilateral lower lobe pulmonary infiltrates . Also, there is history drop in the platelet count which is down to 30. Her white second is at 2.5 with a hemoglobin of 11.7. Rest of the blood work essentially within normal limits. The latest chest x-ray was done on 05/09/2020. She is able to tolerate the BiPAP reasonably well. Her pulse ox is a mid 80s this morning. She is able to generate a tidal volume of IVC with a respiratory rate of 26 cm ventilation of 15. She is currently off Lovenox. She is not taking any antiplatelet agents. Levaquin is a 15 units a day along with 5 units with meals 3 times a day. She is also developing increased swelling in lower extremities bilaterally. Objective - Vital Signs Vital signs: Vital Signs Temp 98.0 F 05/19/20 20:00 Pulse 72 05/20/20 03:53 Resp 23 05/20/20 03:53 BP 108/55 05/20/20 03:53 Pulse Ox 87 L 05/20/20 03:53 Intake & Output 05/19/20 05/20/20 05/20/20 18:59 06:59 18:59 Intake Total 240 180 Balance 240 180 Weight 143.5 kg Intake: Oral 240 180 Other: Voiding Method Bedside Commode # Voids 2 # Bowel Movements 0 - Exam Gen. appearance morbidly obese and she is calm and comfortable lying acute respiratory distress, currently on and the patient is a bit short of breath, currently on a BiPAP at a pressure of 12/6 with an FiO2 of 90%. Head exam was generally normal. There was no scleral icterus or corneal arcus. Mucous membranes were moist. Neck was supple and without jugular venous distension, thyromegaly, or carotid bruits. Carotids were easily palpable bilaterally. There was no adenopathy. Lungs sounds are diminished the patient is crackles in the lung bases more so on the right Cardiac exam revealed the PMI to be normally situated and sized. The rhythm was regular and no extrasystoles were noted during several minutes of auscultation. The first and second heart sounds were normal and physiologic splitting of the second heart sound was noted. There were no murmurs, rubs, clicks, or gallops. Abdominal exam revealed normal bowel sounds. The abdomen was soft, non-tender, and without masses, organomegaly, or appreciable enlargement of the abdominal aorta. Examination of the extremities revealed easily palpable radial, femoral and pedal pulses. There was no cyanosis, clubbing or edema. Examination of the skin revealed no evidence of significant rashes, suspicious appearing nevi or other concerning lesions. Neurologically, the patient is awake and alert and the patient does not have any focal neurological deficit. Cranial nerves are essentially intact. - Labs CBC & Chem 7: 05/20/20 06:37 05/20/20 06:37 Labs: Abnormal Lab Results - Last 24 Hours (Table) 05/19/20 05/19/20 05/19/20 Range/Units 11:35 16:30 19:44 WBC (3.8-10.6) k/uL RDW (11.5-15.5) % Plt Count (150-450) k/uL Lymphocytes # (1.0-4.8) k/uL Sodium (137-145) mmol/L Chloride (98-107) mmol/L Carbon Dioxide (22-30) mmol/L BUN (7-17) mg/dL Glucose (74-99) mg/dL POC Glucose (mg/dL) 137 H 137 H 196 H (75-99) mg/dL Calcium (8.4-10.2) mg/dL 05/20/20 05/20/20 05/20/20 Range/Units 06:26 06:37 06:37 WBC 2.9 L (3.8-10.6) k/uL RDW 17.0 H (11.5-15.5) % Plt Count 30 L (150-450) k/uL Lymphocytes # 0.3 L (1.0-4.8) k/uL Sodium 133 L (137-145) mmol/L Chloride 96 L (98-107) mmol/L Carbon Dioxide 35 H (22-30) mmol/L BUN 26 H (7-17) mg/dL Glucose 180 H (74-99) mg/dL POC Glucose (mg/dL) 193 H (75-99) mg/dL Calcium 8.1 L (8.4-10.2) mg/dL Assessment and Plan Plan: 1 Acute Covid 19 related pneumonia, symptoms started on 04/28/2020, diagnosed to be positive on 04/29/2020. Worsening shortness of breath and hypoxic respiratory failure. She has completed Remdesivir, tocilizumab and convalescent plasma. The patient has been very slow to progress and the patient has required BiPAP throughout the past 2 weeks. The last chest x-ray still showing consolidation lung bases bilaterally. Repeat chest x-ray will be needed. We will also need to check a DIC profile based on underlying drop in the platelet count. 2 Acute hypoxic respiratory failure secondary to above, currently on BiPAP 12/6 and 90% FiO2 3 Fever secondary to above number recovered 4 Leukopenia, lymphopenia and thrombocytopenia secondary to above, platelets down to 30,000 5 Mild elevation of inflammatory markers secondary to Covid 19 infection 6 Obesity with a BMI of 49.0 7 Diabetes mellitus type 2 8 Hypertension 9 Hyperlipidemia 10 Hypothyroidism Plan Remains on IV Solumedrol ,vitamin supplements Repeat chest x-ray Obtain DIC profile Obtain HIT antibodies Lovenox to be held due to low platelet count Remains on BiPAP 12/6 and 90% FiO2 Titrate down the FiO2 as tolerated She has been slow to progress Start the patient on Lasix 40 mg twice a day We'll continue to follow
[2020-05-20 11:13] LABS: ALT 161 U/L (4-34); AST 95 U/L (14-36); African American GFR (CKD) >90 (>60 ml/min/1.73 sqM); Albumin 2.5 g/dL (3.5-5.0); Alkaline Phosphatase 192 U/L (38-126); Anion Gap 4 mmol/L; Blood Urea Nitrogen 25 mg/dL (7-17); Calcium 8.5 mg/dL (8.4-10.2); Carbon Dioxide 34 mmol/L (22-30); Chloride 95 mmol/L (98-107); Glucose 204 mg/dL (74-99); LDH 1644 U/L (313-618); Non-African American GFR(CKD) >90 (>60 ml/min/1.73 sqM); Potassium 4.4 mmol/L (3.5-5.1); Sodium 133 mmol/L (137-145); Total Bilirubin 1.4 mg/dL (0.2-1.3)
[2020-05-20 11:32] LABS: D-Dimer 1.02 mg/L FEU (<0.60); INR 1.3 (<1.2)
--- NOTE | 2020-05-20 11:42 | XR ---
EXAMINATION TYPE: XR chest 1V portable DATE OF EXAM: 05/20/2020 CLINICAL HISTORY: Difficulty breathing progress study. TECHNIQUE: Single AP portable upright view of the chest is obtained. COMPARISON: Chest x-ray from 3 days earlier and older studies. CTA chest 10 days earlier. FINDINGS: Low lung volumes with bilateral multifocal increased opacities. Stable mild cardiomegaly. Osseous structures are intact. IMPRESSION: Persistent low lung volumes and mild cardiomegaly with bilateral multifocal opacities con sistent with covid-19 infection. No significant change from most recent x-ray.
[2020-05-20 11:50] LABS: Glucose,Whole Blood 204 mg/dL (75-99)
[2020-05-20 11:51] LABS: C Reactive Protein <5.0 mg/L (<10.0); Partial Thromboplastin Time 21.4 sec (22.0-30.0)
[2020-05-20] MEDS: FUROSEMIDE 10 MG/ML 4 ML VIAL IV SCH ×2 (13:05→22:12)
[2020-05-20 16:33] LABS: Glucose,Whole Blood 233 mg/dL (75-99)
--- NOTE | 2020-05-20 17:40 | P.PN ---
Subjective Progress Note Date: 05/20/20 [id number] female admitted with acute hypoxic respiratory failure secondary to covid- 19 pneumonia, hypertension, diabetes mellitus, obesity and multiple other medical issues. Oxygen requirements worsened, requiring BiPAP. Chest x-ray reporting bilateral interstitial and patchy airspace opacities remain ,mild cardiomegaly. Denies chest pain, palpitations, reports chest soreness from nonproductive cough. Received a dose of Actemra, maintained on Remdesevir, IV steroids , antibiotics and multivitamin supplements. Afebrile, LDH and C- reactive protein trending down. 05/07/2020 Maintained on Remdesevir/covid regimine. Continues to require BiPAP 100% to maintain O2 sats in the high 80s to 90s. Complains of anxiety regarding mask. Deep breaths trigger cough. Afebrile. Labs pending. Denies chest pain, palpitations. 05/08/2020 sitting up at side of bed, continues to require 100% BiPAP. Ma intained on Covid regimen including Remdesevir. T-max 99.1. Occasional nonproductive cough. Denies chest pain, 05/09/20 unable to tolerate BiPAP decreased to 90% with O2 sats decreased to 84%, currently back up on 100% BiPAP, maintaining O2 sats in the 90s on 100s. T-max 99.1, labs pending. Anxiety controlled. Maintained on Covid regimen, completed 5 doses of Remdesevir. Labs pending. 05/10/2020 maintaining O2 sats in the low 90s on 95% BiPAP. Continues on IV steroids, vitamin C, vitamin D, zinc. Afebrile. Reports less coughing. Denies chest pain, palpitations. 05/13/2020 patient feeling better, reports she has " turned the corner". Maintaining O2 sats in the 90s on BiPAP 70%. Minimal nonproductive cough. Denies chest pain, palpitations. Afebrile, Received Lasix yesterday, potassium 3.4.,creatinine 0.69. 05/14/2020 continues feeling better, maintaining O2 sats in the 90s on BiPAP 70%. Occasional nonproductive cough. Mild pedal edema. Denies chest pain, palpitations. 05/15/2020 maintaining O2 sats in the low 90s on 70% BiPAP. Received Lasix yesterday, less pedal edema, renal function stable. Breathing easier. Blood sugars controlled. 05/16/2020 maintaining O2 sats in the low 90s on nonrebreather and high flow airvo. Afebrile, sodium trending down, 123, creatinine 1.8. Continues to feel better and reporting less shortness of breath. 05/17/2020 80% BiPAP, maintaining O2 sats in the 90s. Reports last night she tolerated 15 minutes on 15 L high flow nasal cannula plus nonrebreather mask .Nonproductive cough. Less tired, reports more energy. Blood sugars controlled. Denies chest pain, palpitations. Afebrile. 05/20/2020 maintained on BiPAP 90%, maintaining O2 sats in the high 80s to low 90s. Hemoglobin 11.7, Platelets decreased to 30, currently off of Lovenox .Afebrile, WBC 2.9. Chest x-ray pending. Objective - Vital Signs Vital signs: Vital Signs Temp 97.0 F L 05/20/20 08:00 Pulse 79 05/20/20 12:00 Resp 20 05/20/20 12:00 BP 116/60 05/20/20 12:00 Pulse Ox 92 L 05/20/20 12:00 Intake & Output 05/19/20 05/20/20 05/20/20 18:59 06:59 18:59 Intake Total 240 720 Output Total 650 Balance 240 70 Weight 143.5 kg Intake: Oral 240 720 Output: Urine 650 Other: Voiding Method Bedside Commode # Voids 2 # Bowel Movements 0 - Exam PHYSICAL EXAM: VITAL SIGNS: [As above] GENERAL: Alert and oriented 3, Sitting up in bed wearing BiPAP, conversing HEENT: Conjunctivae normal. eyes normal. CARDIOVASCULAR: S1, S2 regular.No murmur RESPIRATION: Diminished bases with bibasilar crackles ABDOMEN: Soft, nontender,nondistended.+BS, No guarding, no masses palpable. LEGS: Positive edema, no cyanosis, no clubbing. No calf pain. NERVOUS SYSTEM: Cranial N 2-12 grossly normal.No focal deficits. Skin: Warm and dry, no rash - Labs CBC & Chem 7: 05/20/20 06:37 05/20/20 10:42 Labs: Abnormal Lab Results - Last 24 Hours (Table) 05/19/20 05/19/20 05/20/20 Range/Units 16:30 19:44 06:26 WBC (3.8-10.6) k/uL RDW (11.5-15.5) % Plt Count (150-450) k/uL Lymphocytes # (1.0-4.8) k/uL PT (9.0-12.0) sec INR (<1.2) APTT (22.0-30.0) sec Fibrinogen (200-500) mg/dL D-Dimer (<0.60) mg/L FEU Sodium (137-145) mmol/L Chloride (98-107) mmol/L Carbon Dioxide (22-30) mmol/L BUN (7-17) mg/dL Glucose (74-99) mg/dL POC Glucose (mg/dL) 137 H 196 H 193 H (75-99) mg/dL Calcium (8.4-10.2) mg/dL Total Bilirubin (0.2-1.3) mg/dL AST (14-36) U/L ALT (4-34) U/L Alkaline Phosphatase (38-126) U/L Lactate Dehydrogenase (313-618) U/L Total Protein (6.3-8.2) g/dL Albumin (3.5-5.0) g/dL 05/20/20 05/20/20 05/20/20 Range/Units 06:37 06:37 10:42 WBC 2.9 L (3.8-10.6) k/uL RDW 17.0 H (11.5-15.5) % Plt Count 30 L (150-450) k/uL Lymphocytes # 0.3 L (1.0-4.8) k/uL PT 13.0 H (9.0-12.0) sec INR 1.3 H (<1.2) APTT 21.4 L (22.0-30.0) sec Fibrinogen 120 L (200-500) mg/dL D-Dimer 1.02 H (<0.60) mg/L FEU Sodium 133 L (137-145) mmol/L Chloride 96 L (98-107) mmol/L Carbon Dioxide 35 H (22-30) mmol/L BUN 26 H (7-17) mg/dL Glucose 180 H (74-99) mg/dL POC Glucose (mg/dL) (75-99) mg/dL Calcium 8.1 L (8.4-10.2) mg/dL Total Bilirubin (0.2-1.3) mg/dL AST (14-36) U/L ALT (4-34) U/L Alkaline Phosphatase (38-126) U/L Lactate Dehydrogenase (313-618) U/L Total Protein (6.3-8.2) g/dL Albumin (3.5-5.0) g/dL 05/20/20 05/20/20 05/20/20 Range/Units 10:42 11:48 16:26 WBC (3.8-10.6) k/uL RDW (11.5-15.5) % Plt Count (150-450) k/uL Lymphocytes # (1.0-4.8) k/uL PT (9.0-12.0) sec INR (<1.2) APTT (22.0-30.0) sec Fibrinogen (200-500) mg/dL D-Dimer (<0.60) mg/L FEU Sodium 133 L (137-145) mmol/L Chloride 95 L (98-107) mmol/L Carbon Dioxide 34 H (22-30) mmol/L BUN 25 H (7-17) mg/dL Glucose 204 H (74-99) mg/dL POC Glucose (mg/dL) 204 H 233 H (75-99) mg/dL Calcium (8.4-10.2) mg/dL Total Bilirubin 1.4 H (0.2-1.3) mg/dL AST 95 H (14-36) U/L ALT 161 H (4-34) U/L Alkaline Phosphatase 192 H (38-126) U/L Lactate Dehydrogenase 1644 H (313-618) U/L Total Protein 5.0 L (6.3-8.2) g/dL Albumin 2.5 L (3.5-5.0) g/dL Assessment and Plan Assessment: Sepsis, present on admission secondary to Acute Covid-19 pneumonia, status post convalescent plasma, received tocilizumab, completed Remdesevir Acute hypoxic respiratory failure secondary to the above,BiPAP dependent. Hyponatremia, hypovolemic, suspect diuretic induced Acute anxiety secondary to the above and BiPAP mask, improved leukopenia, lymphopenia and thrombocytopenia secondary to above. Diabetes mellitus type 2 Hypertension Hyperlipidemia Hypothyroidism Morbid obesity, BMI 47 Plan: Continue on current medication regimen, monitoring and symptomatic treatment.labs pending .chest x-ray pending. DIC/hit profile ordered. Covid regimen. Prognosis guarded given multiple complex medical issues. Increase activity as tolerated. The impression and plan of care has been dictated as directed. : I performed a history and examination of this patient, discussed the same with the dictator. I agree with the dictator's note ,documented as a scribe. Any additional findings or plans will be noted.
--- NOTE | 2020-05-20 18:17 | PN ---
PROGRESS NOTE DATE OF SERVICE: 05/20/2020 REASON FOR FOLLOWUP: COVID-19 infection. INTERVAL HISTORY: The patient is currently afebrile. The patient is breathing comfortably. Still requiring a BiPAP, saturating around 92%. The patient denies having any chest pain. Denies any worsening cough or sputum production. No abdominal pain or diarrhea. PHYSICAL EXAMINATION: Blood pressure 116/60 with a pulse of 79, temperature 97. She is 92% on room air and on BiPAP. General description is a middle-aged female lying in bed in no distress. RESPIRATORY SYSTEM: Unlabored breathing with decreased intensity of breath sounds. No wheeze. HEART: S1, S2. Regular rate and rhythm. ABDOMEN: Soft. No tenderness. LABS: Hemoglobin is 11.6, white count 2.9, BUN of 25, creatinine 0.70. Liver enzymes remain elevated. DIAGNOSTIC IMPRESSION AND PLAN: Patient with acute COVID-19 infection. The patient is currently on Solu-Medrol, Lovenox, zinc and ascorbic acid along with respiratory support. Monitor clinical course closely. [id number] / IJN: [id number] / [id number]
[2020-05-20 20:58] LABS: Glucose,Whole Blood 187 mg/dL (75-99)
[2020-05-20] MEDS: INSULIN DETEMIR (LEVEMIR) 100 UNIT/ML SYR SQ SCH (22:12)
[2020-05-20] MEDS: BACLOFEN 10 MG TAB PO SCH (22:12)
[2020-05-21 05:49] LABS: Glucose,Whole Blood 178 mg/dL (75-99)
[2020-05-21] MEDS: LEVOTHYROXINE 75 MCG TAB PO SCH (07:04)
[2020-05-21] MEDS: metFORMIN 500 MG TAB PO SCH ×3 (07:04→17:18)
[2020-05-21] MEDS: GLIMEPIRIDE 4 MG TAB PO SCH (07:04)
[2020-05-21] MEDS: PANTOPRAZOLE 40 MG TABLET PO SCH ×2 (07:04→17:18)
[2020-05-21] MEDS: methylPREDNISolone SOD SUCCI 125 MG/2 ML VIAL IV SCH ×3 (07:04→17:18)
[2020-05-21] MEDS: INSULIN ASPART (NovoLOG) 100 UNIT/ML VIAL SQ SCH ×7 (07:05→20:26)
[2020-05-21] MEDS: lisinopriL 10 MG TAB PO SCH (08:15)
[2020-05-21] MEDS: FUROSEMIDE 10 MG/ML 4 ML VIAL IV SCH ×2 (08:15→20:25)
[2020-05-21] MEDS: CYANOCOBALAMIN 500 MCG TAB PO SCH (08:15)
[2020-05-21] MEDS: CHOLECALCIFEROL 25 MCG (1000 IU) TABLET PO SCH (08:15)
[2020-05-21] MEDS: ESCITALOPRAM 20 MG TAB PO SCH (08:15)
[2020-05-21] MEDS: allopurinoL 100 MG TAB PO SCH (08:15)
[2020-05-21] MEDS: GABAPENTIN 300 MG CAP PO SCH ×4 (08:15→20:25)
[2020-05-21] MEDS: ASCORBIC ACID 500 MG TAB PO SCH (08:15)
[2020-05-21] MEDS: ATORVASTATIN 40 MG TAB PO SCH (08:15)
[2020-05-21] MEDS: ZINC SULFATE 220 MG CAP PO SCH (08:15)
[2020-05-21] MEDS: MAG HYDROX/AL HYDROX/SIMETH 30 ML CUP PO SCH ×4 (08:15→20:25)
[2020-05-21] MEDS: FERROUS SULFATE 325 MG TAB PO SCH (08:15)
--- NOTE | 2020-05-21 11:01 | P.PN ---
Subjective Progress Note Date: 05/21/20 Acute CoVID 19 pneumonia 79-year-old female patient, morbidly obese with a BMI of 47, was hospitalized for COVID 19 related pneumonia. The patient currently is hypoxic on 3 L of oxygen by nasal cannula. She has comorbidities including obesity with a BMI of 47, hypertension, diabetes mellitus and gout. She also has hyperlipidemia and hypothyroidism. The patient started getting symptoms approximately a week ago, on 04/28/2020 and the patient was diagnosed having Covid 19 infection for a primary care physician's office on 04/29.. She continued to have episodes of fever and subsequently she became progressively more short of breath necessitating emergency department visitation today and ultimately she was hospitalized. Her chest x-ray showing bilateral pulmonary infiltrates peripheral distribution more so on the right compared to the left. The patient was started on steroids.. She is slightly nauseated. She also has loss of taste and smell LDH level is currently at 802 with a CRP of 55 and she had a lactic acid level of 2.1 at the time of admission. There d-dimer is still pending for now. Her white cell count is at 1.4 and the patient is lymphopenic with a lymphocyte count of 0.6 and there is also a drop in her platelet count down to 80 and these are all manifestations of COVID 19 infection. On today's evaluation of 04/27/2020, the patient's oxygenation has gotten worse. I saw her in the emergency department yesterday and she was on 4 L. She progressively required higher oxygen flow and she went up to a high flow oxygen through the nasal cannula airvo which she feels a currently she is on a BiPAP at a pressure of 10/5 with an FiO2 of 100%. She is able to generate a tidal volume around 450-500. Respiratory rate is in the mid 30s low 40s. She feels well. She is in mild degree of respiratory distress. She is still able to converse and talk to her BiPAP mask. Her current pulse ox is 94%. 60 showing diffuse breath and pulmonary infiltrates consistent with Covid 19 related pneumonia. Her white cell count is still down at 1.2. Platelet count is at 70 now which is low. D-dimer is at 0.65, her LDH level is at 835 with a CRP of 56. She is on Decadron. I'm going to switch her to Solu-Medrol. She is currently taking REM should be considered for convalescent plasma and addition to Tocilizumab The patient is seen today 05/06/2020 in follow-up on the regular medical floor. She is currently sitting up in bed. Awake and alert in no acute distress. Currently on BiPAP 10/5 and 100% FiO2. Current saturation 88%. Chest x-ray reveals mild, medically. Residual bilateral airspace disease. Improving compared to previous. This is day #3 of Remdesivir. She received convalescent plasma 1, tocilizumab. D-dimer 0.84. C-reactive protein 2.8. LDH 459. She remains on Decadron, IV Solu-Medrol, vitamin supplements. Patient was reevaluated today on 05/09/2020, remains on BiPAP, she is on 100%, O2 sats is 94%. Surprisingly, the patient seems to be doing well in spite of her significant O2 requirement and BiPAP. Patient received REM, she also received convalescent plasma and ACTEMRA. And so far does not seem to be making that significant turnaround and significant clinical improvement. CBC and basic metabolic profile are normal except for WBC count is 2.0 today. Patient was reevaluated today on 05/10/2020, still requiring significant amount of FiO2, she remains on BiPAP at 90% FiO2, she is on IPAP of 10 and EPAP of 5, and O2 saturation remains marginal. Clinically however the patient feels better mikhail athing easier, and have d-dimer is not that significantly elevated but it is nonetheless abnormal. Hence I recommended a CT angiogram of the chest to be done today. Renal profile is normal. CBC continues to show leukopenia with WBC count of 2.0. Electrolytes are normal. Patient was reevaluated today on 05/11/2020, patient is basically about the same. Remains on BiPAP. Her FiO2 is still at 90%, and her O2 saturation is in the low 90s. Patient is on IPAP of 10 and EPAP of 5, seems to be very comfortable. CT angiogram of the chest yesterday showed bilateral interstitial infiltrates, no evidence of thromboembolic disease/pulmonary embolism. WBC count is 2.2 hemoglobin is 11.6. A left lites are normal renal profile is normal clinically the patient is fairly comfortable, however she is still requiring significant high FiO2. Reevaluated today on 05/12/2020, patient is feeling much better today, breathing a lot easier, she is now on 80% FiO2 remains on BiPAP with IPAP of 10 and EPAP of 5. But her FiO2 was cut down to 80%, and I will cut it down further to 70% and her O2 saturation seems to be significantly improved. Patient feels that she felt much better after the Lasix was given yesterday. I will recommend another dose of Lasix to be given today. Her CT angiogram of the chest yesterday questioned mild interstitial edema. However I felt it was all related to her underlying Covid 19 pneumonitis. Nonetheless Lasix was given, and clinically the patient felt better. Labs today were all reviewed she had WBC count of 2.3 hemoglobin 12.4 lites are normal renal profile remains normal. Progress note dated 05/13/2020. Currently, the patient remains on BiPAP, at 70%. She's feeling better today. She feels less short of breath. Her BiPAP settings are IPAP 10, and EPAP 5. I did tell the patient to move around when she is lying in bed. She should lie down on her right side, left side, supine, and if possible, try to prone herself. Current laboratory data includes a white count of 2, hemoglobin 11.7, hematocrit 35.2, platelet count 94,000. Sodium is 136, potassium 3.4, chlorides 101, CO2 33, anion gap 2, BUN [address], [address] angiogram on May 10 showed no evidence of pulmonary embolism, but did show moderately severe pulmonary interstitial edema/infiltrates. Progress note dated 05/14/2020. The patient remains on BiPAP at 70%. She feels much improved. Her IPAP of 10 and EPAP is fine. She's feeling much less short of breath. I did tell her to move around in bed, right side down, left side down, supine, and even on her stomach if she can. No new labs today to look at. No recent chest x-rays to evaluate either. Medications are appropriate at this time. CT angiogram from May 10 is reviewed. Progress note dated 05/15/2020. The patient remains on BiPAP, settings of IPAP 10, and EPAP of 5. She is on 70%. Her saturations are right around 90% or so. Despite that, the patient states that she is feeling much better. She has been moving around in bed. His been laying on her right side, left side, supine, even on her stomach at times. No new labs today other than a sodium of 137, potassium 4, chloride 98, CO2 34, anion gap 5, BUN 19, creatinine 0.67. The patient is seen today 05/16/2020 in follow-up on the selective care unit. She is currently resting fairly comfortably in bed. She is continued on BiPAP currently 10/5 and 70% FiO2. She is maintaining O2 saturations about 85-86%. Today she is feeling mostly tired and fatigued. Breathing is about the same. No better but no worse currently. She remains on IV Solu-Medrol, Lovenox, vitamin supplements. Blood glucose 146. The patient is seen today 05/17/2020 in follow-up on the selective care unit. She remains awake and alert in no acute distress. She is still requiring BiPAP support 10/5 and 80% FiO2 to maintain O2 saturations in the mid 80s. She's been afebrile. Hemodynamically stable. Chest x-ray reveals cardiomegaly, continued bilateral airspace disease, slightly worsened compared to previous. Sodium 133. Potassium 4.5. Creatinine 0.67. She remains on Lovenox, IV Solu-Medrol, vitamin supplements. The patient is seen today 05/19/2020 in follow-up on the selective care unit. She is currently sitting up at the bedside. Awake and alert in no acute distress. She is still on BiPAP 12/6 and 90% FiO2. White count 4.3. Hemoglobin 12.6. Platelet count dropped to 37,000. Lymphocytes 0.3. Sodium 133. Potassium 4.5. Creatinine 0.71. Remains on IV Solu-Medrol, vitamin supplements. Lovenox which will be held. 05/20/2020 the patient is being seen for a follow-up. The patient remains on BiPAP at a pressure of 12/6 with an FiO2 of 90%. Remains on IV Solu-Medrol. She is awake and alert. She denies having any significant shortness of breath. Hemodynamically stable. She had prolonged hospitalization due to complications of Covid 19. She is a morbidly obese female patient with a BMI of 49. She was initially on 3 L about 2 by nasal cannula. She is known to have diabetes, gout and hypertension and hyperlipidemia and hypothyroidism. The patient was diagnosed on 04/28/2020 and since then her condition progressively decompen sated. She was aggressively treated over the past 2 weeks here in the hospital and her blood work showing a component of thrombocytopenia, for that reason anticoagulation was held. The patient remains on IV Solu-Medrol. She is taking 60 mg IV every 6 hours. The last chest x-ray was done on May 17 the patient had bilateral lower lobe pulmonary infiltrates . Also, there is history drop in the platelet count which is down to 30. Her white second is at 2.5 with a hemoglobin of 11.7. Rest of the blood work essentially within normal limits. The latest chest x-ray was done on 05/09/2020. She is able to tolerate the BiPAP reasonably well. Her pulse ox is a mid 80s this morning. She is able to generate a tidal volume of IVC with a respiratory rate of 26 cm ventilation of 15. She is currently off Lovenox. She is not taking any antiplatelet agents. Levaquin is a 15 units a day along with 5 units with meals 3 times a day. She is also developing increased swelling in lower extremities On today's evaluation, the patient is being seen for follow-up for Covid 19 related pneumonia. The patient is still on BiPAP at a pressure of 12/6 with an FiO2 of 90%. Her pulse ox is around 91%. She is hemodynamically stable. The patient is morbidly obese and her current BMI is 49.7. Note that she progressively got worse and she end up on BiPAP therapy. She is on IV Solu Medrol 60 mg every 6 hours. Her chest x-ray showing some limited improvement from yesterday where the diaphragms were better visualized. She is able to tolerate the BiPAP well. On today's evaluation, the patient is generating a tidal volume of 750 and her current respiratory rate is in the order of 20-27. She had some increased swelling in lower extremity bilaterally and the patient was started on Lasix yesterday and the patient is a negative fluid balance of 750 mL over the past 24 hours. She is still has significant amount of edema and she remains on Lasix at a dose of 40 mg IV every 12 hours. Platelet count currently is down to 30. DIC profile was essentially negative. The inflammatory markers from yesterday were elevated. Objective - Vital Signs Vital signs: Vital Signs Temp 98.6 F 05/21/20 08:12 Pulse 83 05/21/20 08:12 Resp 24 05/21/20 08:12 BP 107/54 05/21/20 08:12 Pulse Ox 91 L 05/21/20 08:12 Intake & Output 05/20/20 05/21/20 05/21/20 18:59 06:59 18:59 Intake Total 960 240 Output Total 650 1100 Balance 310 -1100 240 Weight 144 kg Intake: Oral 960 240 Output: Urine 650 1100 Other: Voiding Method Incontinent Diaper External Catheter External Catheter # Voids 2 - Exam Gen. appearance morbidly obese and she is calm and comfortable lying acute respiratory distress, currently on and the patient is a bit short of breath, currently on a BiPAP at a pressure of 12/6 with an FiO2 of 90%. Head exam was generally normal. There was no scleral icterus or corneal arcus. Mucous membranes were moist. Neck was supple and without jugular venous distension, thyromegaly, or carotid bruits. Carotids were easily palpable bilaterally. There was no adenopathy. Lungs sounds are diminished the patient is crackles in the lung bases more so on the right Cardiac exam revealed the PMI to be normally situated and sized. The rhythm was regular and no extrasystoles were noted during several minutes of auscultation. The first and second heart sounds were normal and physiologic splitting of the second heart sound was noted. There were no murmurs, rubs, clicks, or gallops. Abdominal exam revealed normal bowel sounds. The abdomen was soft, non-tender, and without masses, organomegaly, or appreciable enlargement of the abdominal aorta. Examination of the extremities revealed easily palpable radial, femoral and pe sammy pulses. There was no cyanosis, clubbing or edema. Examination of the skin revealed no evidence of significant rashes, suspicious appearing nevi or other concerning lesions. Neurologically, the patient is awake and alert and the patient does not have any focal neurological deficit. Cranial nerves are essentially intact. - Labs CBC & Chem 7: 05/20/20 06:37 05/20/20 10:42 Labs: Abnormal Lab Results - Last 24 Hours (Table) 05/20/20 05/20/20 05/20/20 Range/Units 10:42 10:42 11:48 PT 13.0 H (9.0-12.0) sec INR 1.3 H (<1.2) APTT 21.4 L (22.0-30.0) sec Fibrinogen 120 L (200-500) mg/dL D-Dimer 1.02 H (<0.60) mg/L FEU Sodium 133 L (137-145) mmol/L Chloride 95 L (98-107) mmol/L Carbon Dioxide 34 H (22-30) mmol/L BUN 25 H (7-17) mg/dL Glucose 204 H (74-99) mg/dL POC Glucose (mg/dL) 204 H (75-99) mg/dL Total Bilirubin 1.4 H (0.2-1.3) mg/dL AST 95 H (14-36) U/L ALT 161 H (4-34) U/L Alkaline Phosphatase 192 H (38-126) U/L Lactate Dehydrogenase 1644 H (313-618) U/L Total Protein 5.0 L (6.3-8.2) g/dL Albumin 2.5 L (3.5-5.0) g/dL 05/20/20 05/20/20 05/21/20 Range/Units 16:26 20:56 05:47 PT (9.0-12.0) sec INR (<1.2) APTT (22.0-30.0) sec Fibrinogen (200-500) mg/dL D-Dimer (<0.60) mg/L FEU Sodium (137-145) mmol/L Chloride (98-107) mmol/L Carbon Dioxide (22-30) mmol/L BUN (7-17) mg/dL Glucose (74-99) mg/dL POC Glucose (mg/dL) 233 H 187 H 178 H (75-99) mg/dL Total Bilirubin (0.2-1.3) mg/dL AST (14-36) U/L ALT (4-34) U/L Alkaline Phosphatase (38-126) U/L Lactate Dehydrogenase (313-618) U/L Total Protein (6.3-8.2) g/dL Albumin (3.5-5.0) g/dL Assessment and Plan Plan: 1 Acute Covid 19 related pneumonia, symptoms started on 04/28/2020, diagnosed to be positive on 04/29/2020. Worsening shortness of breath and hypoxic respiratory failure. She has completed Remdesivir, tocilizumab and convalescent plasma. The patient has been very slow to progress and the patient has required BiPAP throughout the past 2 weeks. The last chest x-ray still showing consolidation lung bases bilaterally and this chest x-ray was from yesterday and overall condition is stable since yesterday. We'll attempt to wean down the FiO2 2 Acute hypoxic respiratory failure secondary to above, currently on BiPAP 12/6 and 90% FiO2 3 Fever secondary to above number recovered 4 Leukopenia, lymphopenia and thrombocytopenia secondary to above, platelets down to 30,000 5 Mild elevation of inflammatory markers secondary to Covid 19 infection 6 Obesity with a BMI of 49.0 7 Diabetes mellitus type 2 8 Hypertension 9 Hyperlipidemia 10 Hypothyroidism Plan Remains on IV Solumedrol ,vitamin supplements Repeat chest x-ray Obtain DIC profile was negative HIT antibodies still pending Lovenox to be held due to low platelet count Doppler of the lower extremities Lasix 40 mg every 12 hours Maintain negative fluid balance Remains on BiPAP 12/6 and 90% FiO2, wean FiO2 down to 80% and nontender the situation Titrate down the FiO2 as tolerated She has been slow to progress Start the patient on Lasix 40 mg twice a day IV We'll continue to follow
[2020-05-21 11:57] LABS: Glucose,Whole Blood 163 mg/dL (75-99)
--- NOTE | 2020-05-21 14:39 | US ---
EXAMINATION TYPE: US venous doppler duplex LE DATE OF EXAM: 05/21/2020 11:49 AM COMPARISON: NONE CLINICAL HISTORY: 59-year-old female COVID. Leg swelling SIDE PERFORMED: Bilateral TECHNIQUE: The lower extremity deep venous system is examined utilizing real time linear array sonog ethel with graded compression, doppler sonography and color-flow sonography. FINDINGS: VESSELS IMAGED: Common Femoral Vein Deep Femoral Vein Greater Saphenous Vein * Femoral Vein Popliteal Vein Small Saphenous Vein * Proximal Calf Veins (* superficial vessels) Meat Clerk notes:Large pt body habitus Right Leg: Negative for DVT. Within the right popliteal fossa, there is an 5.7 x 1.0 x 3.0 cm elonga ranjeet Oliva's cyst. Left Leg: Negative for DVT IMPRESSION: 1. No evidence for DVT within the bilateral lower extremities imaged from the groin to the upper calv es. 2. 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
--- NOTE | 2020-05-21 15:02 | P.PN ---
Subjective Progress Note Date: 05/21/20 [id number] female admitted with acute hypoxic respiratory failure secondary to covid- 19 pneumonia, hypertension, diabetes mellitus, obesity and multiple other medical issues. Oxygen requirements worsened, requiring BiPAP. Chest x-ray reporting bilateral interstitial and patchy airspace opacities remain ,mild cardiomegaly. Denies chest pain, palpitations, reports chest soreness from nonproductive cough. Received a dose of Actemra, maintained on Remdesevir, IV steroids , antibiotics and multivitamin supplements. Afebrile, LDH and C- reactive protein trending down. 05/07/2020 Maintained on Remdesevir/covid regimine. Continues to require BiPAP 100% to maintain O2 sats in the high 80s to 90s. Complains of anxiety regarding mask. Deep breaths trigger cough. Afebrile. Labs pending. Denies chest pain, palpitations. 05/08/2020 sitting up at side of bed, continues to require 100% BiPAP. Ma intained on Covid regimen including Remdesevir. T-max 99.1. Occasional nonproductive cough. Denies chest pain, 05/09/20 unable to tolerate BiPAP decreased to 90% with O2 sats decreased to 84%, currently back up on 100% BiPAP, maintaining O2 sats in the 90s on 100s. T-max 99.1, labs pending. Anxiety controlled. Maintained on Covid regimen, completed 5 doses of Remdesevir. Labs pending. 05/10/2020 maintaining O2 sats in the low 90s on 95% BiPAP. Continues on IV steroids, vitamin C, vitamin D, zinc. Afebrile. Reports less coughing. Denies chest pain, palpitations. 05/13/2020 patient feeling better, reports she has " turned the corner". Maintaining O2 sats in the 90s on BiPAP 70%. Minimal nonproductive cough. Denies chest pain, palpitations. Afebrile, Received Lasix yesterday, potassium 3.4.,creatinine 0.69. 05/14/2020 continues feeling better, maintaining O2 sats in the 90s on BiPAP 70%. Occasional nonproductive cough. Mild pedal edema. Denies chest pain, palpitations. 05/15/2020 maintaining O2 sats in the low 90s on 70% BiPAP. Received Lasix yesterday, less pedal edema, renal function stable. Breathing easier. Blood sugars controlled. 05/16/2020 maintaining O2 sats in the low 90s on nonrebreather and high flow airvo. Afebrile, sodium trending down, 123, creatinine 1.8. Continues to feel better and reporting less shortness of breath. 05/17/2020 80% BiPAP, maintaining O2 sats in the 90s. Reports last night she tolerated 15 minutes on 15 L high flow nasal cannula plus nonrebreather mask .Nonproductive cough. Less tired, reports more energy. Blood sugars controlled. Denies chest pain, palpitations. Afebrile. 05/20/2020 maintained on BiPAP 90%, maintaining O2 sats in the high 80s to low 90s. Hemoglobin 11.7, Platelets decreased to 30, currently off of Lovenox .Afebrile, WBC 2.9. Chest x-ray pending. 05/21/2020 continues on BiPAP 90% maintaining O2 sats in the high 80s. Reports that well, feels good. Afebrile. Yesterday's x-ray reported persistent low lung volumes, cardiomegaly, bilateral multifocal opacity is consistent with Covid 19 infectionno significant change. Doppler reported Bilateral lower extremities negative for DVT. Diuresing well on Lasix IV push with 24-hour I&O reflecting a negative fluid balance. BUN 25, creatinine 0.7. Hit antibodies pending. Objective - Vital Signs Vital signs: Vital Signs Temp 98.6 F 05/21/20 12:00 Pulse 85 05/21/20 13:52 Resp 21 05/21/20 13:52 BP 120/60 05/21/20 12:00 Pulse Ox 88 L 05/21/20 12:00 Intake & Output 05/20/20 05/21/20 05/21/20 18:59 06:59 18:59 Intake Total 960 240 Output Total 650 1100 Balance 310 -1100 240 Weight 144 kg Intake: Oral 960 240 Output: Urine 650 1100 Other: Voiding Method Incontinent Diaper External Catheter External Catheter # Voids 2 - Exam PHYSICAL EXAM: VITAL SIGNS: [As above] GENERAL: Alert and oriented 3, Sitting up in bed wearing BiPAP, conversing e asily HEENT: Conjunctivae normal. eyes normal. CARDIOVASCULAR: S1, S2 regular.No murmur RESPIRATION: Diminished bases with bibasilar crackles ABDOMEN: Soft, nontender,nondistended.+BS, No guarding, no masses palpable. LEGS: Trace edema, no cyanosis, no clubbing. No calf pain. NERVOUS SYSTEM: Cranial N 2-12 grossly normal.No focal deficits. Skin: Warm and dry, no rash - Labs CBC & Chem 7: 05/20/20 06:37 05/20/20 10:42 Labs: Abnormal Lab Results - Last 24 Hours (Table) 05/20/20 05/20/20 05/21/20 Range/Units 16:26 20:56 05:47 POC Glucose (mg/dL) 233 H 187 H 178 H (75-99) mg/dL 05/21/20 Range/Units 11:56 POC Glucose (mg/dL) 163 H (75-99) mg/dL Assessment and Plan Assessment: Sepsis, present on admission secondary to Acute Covid-19 pneumonia, status post convalescent plasma, received tocilizumab, completed Remdesevir Acute hypoxic respiratory failure secondary to the above,BiPAP dependent. Hyponatremia, hypovolemic, suspect diuretic induced Acute anxiety secondary to the above and BiPAP mask, improved leukopenia, lymphopenia and thrombocytopenia secondary to above. Diabetes mellitus type 2 Hypertension Hyperlipidemia Hypothyroidism Morbid obesity, BMI 47 Plan: Continue on current medication regimen, monitoring and symptomatic treatment.labs pending. Hit antibody pending.Covid regimen. Close monitoring of coags, electrolytes with repeat labs ordered for a.m. Prognosis guarded given multiple complex medical issues. Increase activity as tolerated. The impression and plan of care has been dictated as directed. : I performed a history and examination of this patient, discussed the same with the dictator. I agree with the dictator's note ,documented as a scribe. Any additional findings or plans will be noted.
[2020-05-21 17:01] LABS: Glucose,Whole Blood 178 mg/dL (75-99)
[2020-05-21 20:09] LABS: Glucose,Whole Blood 237 mg/dL (75-99)
--- NOTE | 2020-05-21 20:14 | PN ---
PROGRESS NOTE DATE OF SERVICE: 05/21/2020 REASON FOR FOLLOWUP: COVID-19 infection. INTERVAL HISTORY: The patient is currently afebrile. The patient is breathing slightly comfortably, still requiring BiPAP. Denies having any chest pain or cough. No abdominal pain or diarrhea. PHYSICAL EXAMINATION: Blood pressure 110/61 with a pulse of 99, temperature 98.7. She is 92% on BiPAP. General description is a middle-aged female up in the bed in no distress. RESPIRATORY SYSTEM: Unlabored breathing. Clear to auscultation anteriorly. HEART: S1, S2. Regular rate and rhythm. ABDOMEN: Soft. No tenderness. LABS: No new labs have been obtained today. DIAGNOSTIC IMPRESSION AND PLAN: Patient with acute COVID-19 infection. The patient is currently on Solu-Medrol, zinc, ascorbic acid; to continue along with respiratory support. Monitor her clinical course closely. MMODL / IJN: [id number] /
[2020-05-21] MEDS: BACLOFEN 10 MG TAB PO SCH (20:25)
[2020-05-21] MEDS: INSULIN DETEMIR (LEVEMIR) 100 UNIT/ML SYR SQ SCH (20:26)
[2020-05-21] MEDS: ALBUTEROL HFA INHALER INHALATION PRN (20:38)
[2020-05-22] MEDS: methylPREDNISolone SOD SUCCI 125 MG/2 ML VIAL IV SCH ×5 (00:46→22:41)
[2020-05-22] MEDS: LEVOTHYROXINE 75 MCG TAB PO SCH (06:42)
[2020-05-22] MEDS: PANTOPRAZOLE 40 MG TABLET PO SCH ×2 (06:42→17:29)
[2020-05-22] MEDS: metFORMIN 500 MG TAB PO SCH ×3 (06:42→17:29)
[2020-05-22 06:53] LABS: Glucose,Whole Blood 205 mg/dL (75-99)
[2020-05-22] MEDS: INSULIN ASPART (NovoLOG) 100 UNIT/ML VIAL SQ SCH ×7 (06:54→20:37)
[2020-05-22] MEDS: GLIMEPIRIDE 4 MG TAB PO SCH (06:54)
[2020-05-22 09:07] LABS: Anisocytosis Slight; Basophils % (A) 0 %; Eosinophils % (A) 1 %; HGB 13.5 gm/dL (11.4-16.0); Lymphocytes # (A) 0.3 k/uL (1.0-4.8); Lymphocytes % (A) 4 %; MCHC 34.5 g/dL (31.0-37.0); Mean Platelet Volume 9.5; Monocytes # (A) 0.2 k/uL (0-1.0); Monocytes % (A) 4 %; Neutrophils # (A) 5.4 k/uL (1.3-7.7); Neutrophils % (A) 91 %; RBC 4.49 m/uL (3.80-5.40); RDW 16.8 % (11.5-15.5); WBC 5.9 k/uL (3.8-10.6)
[2020-05-22] MEDS: FUROSEMIDE 10 MG/ML 4 ML VIAL IV SCH ×2 (09:08→20:36)
[2020-05-22] MEDS: ATORVASTATIN 40 MG TAB PO SCH (09:09)
[2020-05-22] MEDS: GABAPENTIN 300 MG CAP PO SCH ×4 (09:09→20:36)
[2020-05-22] MEDS: lisinopriL 10 MG TAB PO SCH (09:09)
[2020-05-22] MEDS: allopurinoL 100 MG TAB PO SCH (09:09)
[2020-05-22] MEDS: FERROUS SULFATE 325 MG TAB PO SCH (09:09)
[2020-05-22] MEDS: ZINC SULFATE 220 MG CAP PO SCH (09:09)
[2020-05-22] MEDS: ESCITALOPRAM 20 MG TAB PO SCH (09:09)
[2020-05-22] MEDS: CHOLECALCIFEROL 25 MCG (1000 IU) TABLET PO SCH (09:09)
[2020-05-22] MEDS: CYANOCOBALAMIN 500 MCG TAB PO SCH (09:10)
[2020-05-22] MEDS: ASCORBIC ACID 500 MG TAB PO SCH (09:10)
[2020-05-22] MEDS: MAG HYDROX/AL HYDROX/SIMETH 30 ML CUP PO SCH ×4 (09:12→20:37)
[2020-05-22 09:16] LABS: Platelet Count 23 k/uL (150-450)
[2020-05-22 09:40] LABS: African American GFR (CKD) >90 (>60 ml/min/1.73 sqM); Anion Gap 7 mmol/L; Blood Urea Nitrogen 27 mg/dL (7-17); C Reactive Protein <5.0 mg/L (<10.0); Calcium 8.6 mg/dL (8.4-10.2); Carbon Dioxide 36 mmol/L (22-30); Chloride 89 mmol/L (98-107); Glucose 240 mg/dL (74-99); LDH 1590 U/L (313-618); Non-African American GFR(CKD) >90 (>60 ml/min/1.73 sqM); Sodium 132 mmol/L (137-145)
[2020-05-22 09:47] LABS: D-Dimer 0.93 mg/L FEU (<0.60); INR 1.2 (<1.2); Prothrombin Time 12.7 sec (9.0-12.0)
--- NOTE | 2020-05-22 11:38 | P.PN ---
Subjective Progress Note Date: 05/22/20 Acute CoVID 19 pneumonia 79-year-old female patient, morbidly obese with a BMI of 47, was hospitalized for COVID 19 related pneumonia. The patient currently is hypoxic on 3 L of oxygen by nasal cannula. She has comorbidities including obesity with a BMI of 47, hypertension, diabetes mellitus and gout. She also has hyperlipidemia and hypothyroidism. The patient started getting symptoms approximately a week ago, on 04/28/2020 and the patient was diagnosed having Covid 19 infection for a primary care physician's office on 04/29.. She continued to have episodes of fever and subsequently she became progressively more short of breath necessitating emergency department visitation today and ultimately she was hospitalized. Her chest x-ray showing bilateral pulmonary infiltrates peripheral distribution more so on the right compared to the left. The patient was started on steroids.. She is slightly nauseated. She also has loss of taste and smell LDH level is currently at 802 with a CRP of 55 and she had a lactic acid level of 2.1 at the time of admission. There d-dimer is still pending for now. Her white cell count is at 1.4 and the patient is lymphopenic with a lymphocyte count of 0.6 and there is also a drop in her platelet count down to 80 and these are all manifestations of COVID 19 infection. On today's evaluation of 04/27/2020, the patient's oxygenation has gotten worse. I saw her in the emergency department yesterday and she was on 4 L. She progressively required higher oxygen flow and she went up to a high flow oxygen through the nasal cannula airvo which she feels a currently she is on a BiPAP at a pressure of 10/5 with an FiO2 of 100%. She is able to generate a tidal volume around 450-500. Respiratory rate is in the mid 30s low 40s. She feels well. She is in mild degree of respiratory distress. She is still able to converse and talk to her BiPAP mask. Her current pulse ox is 94%. 60 showing diffuse breath and pulmonary infiltrates consistent with Covid 19 related pneumonia. Her white cell count is still down at 1.2. Platelet count is at 70 now which is low. D-dimer is at 0.65, her LDH level is at 835 with a CRP of 56. She is on Decadron. I'm going to switch her to Solu-Medrol. She is currently taking REM should be considered for convalescent plasma and addition to Tocilizumab The patient is seen today 05/06/2020 in follow-up on the regular medical floor. She is currently sitting up in bed. Awake and alert in no acute distress. Currently on BiPAP 10/5 and 100% FiO2. Current saturation 88%. Chest x-ray reveals mild, medically. Residual bilateral airspace disease. Improving compared to previous. This is day #3 of Remdesivir. She received convalescent plasma 1, tocilizumab. D-dimer 0.84. C-reactive protein 2.8. LDH 459. She remains on Decadron, IV Solu-Medrol, vitamin supplements. Patient was reevaluated today on 05/09/2020, remains on BiPAP, she is on 100%, O2 sats is 94%. Surprisingly, the patient seems to be doing well in spite of her significant O2 requirement and BiPAP. Patient received REM, she also received convalescent plasma and ACTEMRA. And so far does not seem to be making that significant turnaround and significant clinical improvement. CBC and basic metabolic profile are normal except for WBC count is 2.0 today. Patient was reevaluated today on 05/10/2020, still requiring significant amount of FiO2, she remains on BiPAP at 90% FiO2, she is on IPAP of 10 and EPAP of 5, and O2 saturation remains marginal. Clinically however the patient feels better mikhail athing easier, and have d-dimer is not that significantly elevated but it is nonetheless abnormal. Hence I recommended a CT angiogram of the chest to be done today. Renal profile is normal. CBC continues to show leukopenia with WBC count of 2.0. Electrolytes are normal. Patient was reevaluated today on 05/11/2020, patient is basically about the same. Remains on BiPAP. Her FiO2 is still at 90%, and her O2 saturation is in the low 90s. Patient is on IPAP of 10 and EPAP of 5, seems to be very comfortable. CT angiogram of the chest yesterday showed bilateral interstitial infiltrates, no evidence of thromboembolic disease/pulmonary embolism. WBC count is 2.2 hemoglobin is 11.6. A left lites are normal renal profile is normal clinically the patient is fairly comfortable, however she is still requiring significant high FiO2. Reevaluated today on 05/12/2020, patient is feeling much better today, breathing a lot easier, she is now on 80% FiO2 remains on BiPAP with IPAP of 10 and EPAP of 5. But her FiO2 was cut down to 80%, and I will cut it down further to 70% and her O2 saturation seems to be significantly improved. Patient feels that she felt much better after the Lasix was given yesterday. I will recommend another dose of Lasix to be given today. Her CT angiogram of the chest yesterday questioned mild interstitial edema. However I felt it was all related to her underlying Covid 19 pneumonitis. Nonetheless Lasix was given, and clinically the patient felt better. Labs today were all reviewed she had WBC count of 2.3 hemoglobin 12.4 lites are normal renal profile remains normal. Progress note dated 05/13/2020. Currently, the patient remains on BiPAP, at 70%. She's feeling better today. She feels less short of breath. Her BiPAP settings are IPAP 10, and EPAP 5. I did tell the patient to move around when she is lying in bed. She should lie down on her right side, left side, supine, and if possible, try to prone herself. Current laboratory data includes a white count of 2, hemoglobin 11.7, hematocrit 35.2, platelet count 94,000. Sodium is 136, potassium 3.4, chlorides 101, CO2 33, anion gap 2, BUN [address], [address] angiogram on May 10 showed no evidence of pulmonary embolism, but did show moderately severe pulmonary interstitial edema/infiltrates. Progress note dated 05/14/2020. The patient remains on BiPAP at 70%. She feels much improved. Her IPAP of 10 and EPAP is fine. She's feeling much less short of breath. I did tell her to move around in bed, right side down, left side down, supine, and even on her stomach if she can. No new labs today to look at. No recent chest x-rays to evaluate either. Medications are appropriate at this time. CT angiogram from May 10 is reviewed. Progress note dated 05/15/2020. The patient remains on BiPAP, settings of IPAP 10, and EPAP of 5. She is on 70%. Her saturations are right around 90% or so. Despite that, the patient states that she is feeling much better. She has been moving around in bed. His been laying on her right side, left side, supine, even on her stomach at times. No new labs today other than a sodium of 137, potassium 4, chloride 98, CO2 34, anion gap 5, BUN 19, creatinine 0.67. The patient is seen today 05/16/2020 in follow-up on the selective care unit. She is currently resting fairly comfortably in bed. She is continued on BiPAP currently 10/5 and 70% FiO2. She is maintaining O2 saturations about 85-86%. Today she is feeling mostly tired and fatigued. Breathing is about the same. No better but no worse currently. She remains on IV Solu-Medrol, Lovenox, vitamin supplements. Blood glucose 146. The patient is seen today 05/17/2020 in follow-up on the selective care unit. She remains awake and alert in no acute distress. She is still requiring BiPAP support 10/5 and 80% FiO2 to maintain O2 saturations in the mid 80s. She's been afebrile. Hemodynamically stable. Chest x-ray reveals cardiomegaly, continued bilateral airspace disease, slightly worsened compared to previous. Sodium 133. Potassium 4.5. Creatinine 0.67. She remains on Lovenox, IV Solu-Medrol, vitamin supplements. The patient is seen today 05/19/2020 in follow-up on the selective care unit. She is currently sitting up at the bedside. Awake and alert in no acute distress. She is still on BiPAP 12/6 and 90% FiO2. White count 4.3. Hemoglobin 12.6. Platelet count dropped to 37,000. Lymphocytes 0.3. Sodium 133. Potassium 4.5. Creatinine 0.71. Remains on IV Solu-Medrol, vitamin supplements. Lovenox which will be held. 05/20/2020 the patient is being seen for a follow-up. The patient remains on BiPAP at a pressure of 12/6 with an FiO2 of 90%. Remains on IV Solu-Medrol. She is awake and alert. She denies having any significant shortness of breath. Hemodynamically stable. She had prolonged hospitalization due to complications of Covid 19. She is a morbidly obese female patient with a BMI of 49. She was initially on 3 L about 2 by nasal cannula. She is known to have diabetes, gout and hypertension and hyperlipidemia and hypothyroidism. The patient was diagnosed on 04/28/2020 and since then her condition progressively decompen sated. She was aggressively treated over the past 2 weeks here in the hospital and her blood work showing a component of thrombocytopenia, for that reason anticoagulation was held. The patient remains on IV Solu-Medrol. She is taking 60 mg IV every 6 hours. The last chest x-ray was done on May 17 the patient had bilateral lower lobe pulmonary infiltrates . Also, there is history drop in the platelet count which is down to 30. Her white second is at 2.5 with a hemoglobin of 11.7. Rest of the blood work essentially within normal limits. The latest chest x-ray was done on 05/09/2020. She is able to tolerate the BiPAP reasonably well. Her pulse ox is a mid 80s this morning. She is able to generate a tidal volume of IVC with a respiratory rate of 26 cm ventilation of 15. She is currently off Lovenox. She is not taking any antiplatelet agents. Levaquin is a 15 units a day along with 5 units with meals 3 times a day. She is also developing increased swelling in lower extremities On today's evaluation, the patient is being seen for follow-up for Covid 19 related pneumonia. The patient is still on BiPAP at a pressure of 12/6 with an FiO2 of 90%. Her pulse ox is around 91%. She is hemodynamically stable. The patient is morbidly obese and her current BMI is 49.7. Note that she progressively got worse and she end up on BiPAP therapy. She is on IV Solu Medrol 60 mg every 6 hours. Her chest x-ray showing some limited improvement from yesterday where the diaphragms were better visualized. She is able to tolerate the BiPAP well. On today's evaluation, the patient is generating a tidal volume of 750 and her current respiratory rate is in the order of 20-27. She had some increased swelling in lower extremity bilaterally and the patient was started on Lasix yesterday and the patient is a negative fluid balance of 750 mL over the past 24 hours. She is still has significant amount of edema and she remains on Lasix at a dose of 40 mg IV every 12 hours. Platelet count currently is down to 30. DIC profile was essentially negative. The inflammatory markers from yesterday were elevated. On 05/22/2020 currently the patient remains on BiPAP at a pressure of 12/6 with an FiO2 of 90%. Her saturations remained marginal. The patient is generating adequate tidal volumes of 570 on her machine. She was started on diuretics yesterday and the patient has been negative fluid balance of 2 L over the past 24 hours. She is awake and calm and comfortable. She wasn't having issues with thrombocytopenia. The platelet count today is 23. Hematology is going to evaluate the patient. The coagulation profile is within normal limits. LDH level is at 1590 with a CRP of less than 5. She is awake and alert. She is following commands and answering questions face is able to take sips of soup and oatmeal. She is resting comfortably in bed. She remains on IV Solu-Medrol. She is also on Lasix 40 mg IV every 12 hours. She is also on Levemir insulin 15 units along with a prescription coverage. No anticoagulation for now because of her underlying thrombocytopenia. Objective - Vital Signs Vital signs: Vital Signs Temp 96.9 F L 05/22/20 08:00 Pulse 99 05/22/20 08:00 Resp 20 05/22/20 08:00 BP 102/63 05/22/20 08:00 Pulse Ox 87 L 05/22/20 08:00 Intake & Output 05/21/20 05/22/20 05/22/20 18:59 06:59 18:59 Intake Total 480 180 Output Total 247 510 6305 Balance - Weight 139 kg Intake: Oral 480 180 Output: Urine 724 481 2958 Other: Voiding Method Diaper Indwelling Catheter External Catheter - Exam Gen. appearance morbidly obese and she is calm and comfortable lying acute respiratory distress, currently on and the patient is a bit short of breath, currently on a BiPAP at a pressure of 12/6 with an FiO2 of 90%. Head exam was generally normal. There was no scleral icterus or corneal arcus. Mucous membranes were moist. Neck was supple and without jugular venous distension, thyromegaly, or carotid bruits. Carotids were easily palpable bilaterally. There was no adenopathy. Lungs sounds are diminished the patient is crackles in the lung bases more so on the right Cardiac exam revealed the PMI to be normally situated and sized. The rhythm was regular and no extrasystoles were noted during several minutes of auscultation. The first and second heart sounds were normal and physiologic splitting of the second heart sound was noted. There were no murmurs, rubs, clicks, or gallops. Abdominal exam revealed normal bowel sounds. The abdomen was soft, non-tender, and without masses, organomegaly, or appreciable enlargement of the abdominal aorta. Examination of the extremities revealed easily palpable radial, femoral and pedal pulses. There was no cyanosis, clubbing or edema. Examination of the skin revealed no evidence of significant rashes, suspicious appearing nevi or other concerning lesions. Neurologically, the patient is awake and alert and the patient does not have any focal neurological deficit. Cranial nerves are essentially intact. - Labs CBC & Chem 7: 05/22/20 08:40 05/22/20 08:40 Labs: Abnormal Lab Results - Last 24 Hours (Table) 05/21/20 05/21/20 05/21/20 Range/Units 11:56 16:59 20:07 RDW (11.5-15.5) % Plt Count (150-450) k/uL Lymphocytes # (1.0-4.8) k/uL PT (9.0-12.0) sec INR (<1.2) D-Dimer (<0.60) mg/L FEU Sodium (137-145) mmol/L Chloride (98-107) mmol/L Carbon Dioxide (22-30) mmol/L BUN (7-17) mg/dL Glucose (74-99) mg/dL POC Glucose (mg/dL) 163 H 178 H 237 H (75-99) mg/dL Lactate Dehydrogenase (313-618) U/L 05/22/20 05/22/20 05/22/20 Range/Units 06:51 08:40 08:40 RDW (11.5-15.5) % Plt Count (150-450) k/uL Lymphocytes # (1.0-4.8) k/uL PT 12.7 H (9.0-12.0) sec INR 1.2 H (<1.2) D-Dimer 0.93 H (<0.60) mg/L FEU Sodium 132 L (137-145) mmol/L Chloride 89 L (98-107) mmol/L Carbon Dioxide 36 H (22-30) mmol/L BUN 27 H (7-17) mg/dL Glucose 240 H (74-99) mg/dL POC Glucose (mg/dL) 205 H (75-99) mg/dL Lactate Dehydrogenase 1590 H (313-618) U/L 05/22/20 Range/Units 08:40 RDW 16.8 H (11.5-15.5) % Plt Count 23 L (150-450) k/uL Lymphocytes # 0.3 L (1.0-4.8) k/uL PT (9.0-12.0) sec INR (<1.2) D-Dimer (<0.60) mg/L FEU Sodium (137-145) mmol/L Chloride (98-107) mmol/L Carbon Dioxide (22-30) mmol/L BUN (7-17) mg/dL Glucose (74-99) mg/dL POC Glucose (mg/dL) (75-99) mg/dL Lactate Dehydrogenase (313-618) U/L Assessment and Plan Plan: 1 Acute Covid 19 related pneumonia, symptoms started on 04/28/2020, diagnosed to be positive on 04/29/2020. She has completed Remdesivir, tocilizumab and convalescent plasma. The patient has been very slow to progress and the patient has required BiPAP throughout the past 2 weeks. The last chest x-ray still showing consolidation lung bases bilaterally repeat chest x-ray from today is undifferentiated. The findings are essentially the same and the patient remains ventilator dependent at the same settings of 12/6 with FiO2 of 90%. 2 Acute hypoxic respiratory failure secondary to above, currently on BiPAP 12/6 and 90% FiO2 3 Fever secondary to above number recovered 4 Leukopenia, lymphopenia and thrombocytopenia secondary to above, platelets down to 23k 5 Mild elevation of inflammatory markers secondary to Covid 19 infection 6 Obesity with a BMI of 49.0 7 Diabetes mellitus type 2 8 Hypertension 9 Hyperlipidemia 10 Hypothyroidism Plan Remains on IV Solumedrol ,vitamin supplements Repeat chest x-ray showing stable findings DIC profile was negative HIT antibodies was negative Count is up to 23K and the patient is going to be seen by hematology. Lovenox to be held due to low platelet count Doppler of the lower extremities Lasix 40 mg every 12 hours Maintain negative fluid balance Remains on BiPAP / and 90% FiO2, wean FiO2 down to 80% Titrate down the FiO2 as tolerated She has been slow to progress Possible platelet transfusion today We'll continue to follow
--- NOTE | 2020-05-22 11:45 | XR ---
EXAMINATION TYPE: XR chest 1V portable DATE OF EXAM: 05/22/2020 COMPARISON: 05/20/2020 INDICATION: Short of breath TECHNIQUE: Single frontal view of the chest is obtained. FINDINGS: The heart size is prominent. The pulmonary vasculature is normal. Diffuse increased lung markings are present bilaterally. Degree of inspiration is limited. Findings a ppear worsened over the interval.. IMPRESSION: 1. Diffuse increased bilateral lung markings and poor inspiratory effort. Findings are worsened over the interval.
[2020-05-22 12:27] LABS: Glucose,Whole Blood 130 mg/dL (75-99)
--- NOTE | 2020-05-22 15:06 | P.PN ---
Subjective Progress Note Date: 05/22/20 [id number] female admitted with acute hypoxic respiratory failure secondary to covid- 19 pneumonia, hypertension, diabetes mellitus, obesity and multiple other medical issues. Oxygen requirements worsened, requiring BiPAP. Chest x-ray reporting bilateral interstitial and patchy airspace opacities remain ,mild cardiomegaly. Denies chest pain, palpitations, reports chest soreness from nonproductive cough. Received a dose of Actemra, maintained on Remdesevir, IV steroids , antibiotics and multivitamin supplements. Afebrile, LDH and C- reactive protein trending down. 05/07/2020 Maintained on Remdesevir/covid regimine. Continues to require BiPAP 100% to maintain O2 sats in the high 80s to 90s. Complains of anxiety regarding mask. Deep breaths trigger cough. Afebrile. Labs pending. Denies chest pain, palpitations. 05/08/2020 sitting up at side of bed, continues to require 100% BiPAP. Ma intained on Covid regimen including Remdesevir. T-max 99.1. Occasional nonproductive cough. Denies chest pain, 05/09/20 unable to tolerate BiPAP decreased to 90% with O2 sats decreased to 84%, currently back up on 100% BiPAP, maintaining O2 sats in the 90s on 100s. T-max 99.1, labs pending. Anxiety controlled. Maintained on Covid regimen, completed 5 doses of Remdesevir. Labs pending. 05/10/2020 maintaining O2 sats in the low 90s on 95% BiPAP. Continues on IV steroids, vitamin C, vitamin D, zinc. Afebrile. Reports less coughing. Denies chest pain, palpitations. 05/13/2020 patient feeling better, reports she has " turned the corner". Maintaining O2 sats in the 90s on BiPAP 70%. Minimal nonproductive cough. Denies chest pain, palpitations. Afebrile, Received Lasix yesterday, potassium 3.4.,creatinine 0.69. 05/14/2020 continues feeling better, maintaining O2 sats in the 90s on BiPAP 70%. Occasional nonproductive cough. Mild pedal edema. Denies chest pain, palpitations. 05/15/2020 maintaining O2 sats in the low 90s on 70% BiPAP. Received Lasix yesterday, less pedal edema, renal function stable. Breathing easier. Blood sugars controlled. 05/16/2020 maintaining O2 sats in the low 90s on nonrebreather and high flow airvo. Afebrile, sodium trending down, 123, creatinine 1.8. Continues to feel better and reporting less shortness of breath. 05/17/2020 80% BiPAP, maintaining O2 sats in the 90s. Reports last night she tolerated 15 minutes on 15 L high flow nasal cannula plus nonrebreather mask .Nonproductive cough. Less tired, reports more energy. Blood sugars controlled. Denies chest pain, palpitations. Afebrile. 05/20/2020 maintained on BiPAP 90%, maintaining O2 sats in the high 80s to low 90s. Hemoglobin 11.7, Platelets decreased to 30, currently off of Lovenox .Afebrile, WBC 2.9. Chest x-ray pending. 05/21/2020 continues on BiPAP 90% maintaining O2 sats in the high 80s. Reports that well, feels good. Afebrile. Yesterday's x-ray reported persistent low lung volumes, cardiomegaly, bilateral multifocal opacity is consistent with Covid 19 infectionno significant change. Doppler reported Bilateral lower extremities negative for DVT. Diuresing well on Lasix IV push with 24-hour I&O reflecting a negative fluid balance. BUN 25, creatinine 0.7. Hit antibodies pending. 05/22/2020 maintaining O2 sats of 87 to low 90s on 90% BiPAP. Diuresing well on Lasix IV push with 24-hour I&O reflecting a negative fluid balance. BUN 27/creatinine 0.73. Hemoglobin 13.5, platelets 23-anticoagulation remains on hold. Hematology consult in place, recommendations pending. Reports sleeping well with no shortness of breath. Afebrile, normal WBC. Objective - Vital Signs Vital signs: Vital Signs Temp 96.9 F L 05/22/20 08:00 Pulse 99 05/22/20 08:00 Resp 20 05/22/20 08:00 BP 102/63 05/22/20 08:00 Pulse Ox 87 L 05/22/20 08:00 Intake & Output 05/21/20 05/22/2005/22/21 18:59 06:59 18:59 Intake Total 480 180 Output Total 134 281 0296 Balance - Weight 139 kg Intake: Oral 480 180 Output: Urine 597 243 2910 Other: Voiding Method Diaper Indwelling Catheter External Catheter - Exam PHYSICAL EXAM: VITAL SIGNS: [As above] GENERAL: Alert and oriented 3, Sitting up in bed wearing BiPAP,NAD HEENT: Conjunctivae normal. eyes normal. CARDIOVASCULAR: S1, S2 regular.No murmur RESPIRATION: Diminished bases with bibasilar crackles ABDOMEN: Soft, nontender,nondistended.+BS, No guarding, no masses palpable. LEGS: Trace edema, no cyanosis, no clubbing. No calf pain. NERVOUS SYSTEM: Cranial N 2-12 grossly normal.No focal deficits. Skin: Warm and dry, no rash - Labs CBC & Chem 7: 05/22/20 08:40 05/22/20 08:40 Labs: Abnormal Lab Results - Last 24 Hours (Table) 05/21/20 05/21/20 05/21/20 Range/Units 11:56 16:59 20:07 RDW (11.5-15.5) % Plt Count (150-450) k/uL Lymphocytes # (1.0-4.8) k/uL PT (9.0-12.0) sec INR (<1.2) D-Dimer (<0.60) mg/L FEU Sodium (137-145) mmol/L Chloride (98-107) mmol/L Carbon Dioxide (22-30) mmol/L BUN (7-17) mg/dL Glucose (74-99) mg/dL POC Glucose (mg/dL) 163 H 178 H 237 H (75-99) mg/dL Lactate Dehydrogenase (313-618) U/L 05/22/20 05/22/20 05/22/20 Range/Units 06:51 08:40 08:40 RDW (11.5-15.5) % Plt Count (150-450) k/uL Lymphocytes # (1.0-4.8) k/uL PT 12.7 H (9.0-12.0) sec INR 1.2 H (<1.2) D-Dimer 0.93 H (<0.60) mg/L FEU Sodium 132 L (137-145) mmol/L Chloride 89 L (98-107) mmol/L Carbon Dioxide 36 H (22-30) mmol/L BUN 27 H (7-17) mg/dL Glucose 240 H (74-99) mg/dL POC Glucose (mg/dL) 205 H (75-99) mg/dL Lactate Dehydrogenase 1590 H (313-618) U/L 05/22/20 Range/Units 08:40 RDW 16.8 H (11.5-15.5) % Plt Count 23 L (150-450) k/uL Lymphocytes # 0.3 L (1.0-4.8) k/uL PT (9.0-12.0) sec INR (<1.2) D-Dimer (<0.60) mg/L FEU Sodium (137-145) mmol/L Chloride (98-107) mmol/L Carbon Dioxide (22-30) mmol/L BUN (7-17) mg/dL Glucose (74-99) mg/dL POC Glucose (mg/dL) (75-99) mg/dL Lactate Dehydrogenase (313-618) U/L Assessment and Plan Assessment: Sepsis, present on admission secondary to Acute Covid-19 pneumonia, status post convalescent plasma, received tocilizumab, completed Remdesevir Acute hypoxic respiratory failure secondary to the above,BiPAP dependent. Hyponatremia, hypovolemic, suspect diuretic induced Acute anxiety secondary to the above and BiPAP mask, improved leukopenia, lymphopenia and thrombocytopenia secondary to above. Diabetes mellitus type 2 Hypertension Hyperlipidemia Hypothyroidism Morbid obesity, BMI 47 Plan: Continue on current medication regimen, monitoring and symptomatic treatment.Covid regimen. Close monitoring of CBC, electrolytes with repeat labs ordered for a.m. platelet transfusion as per hematology eval/recommendations pending. Prognosis guarded given multiple complex medical issues. Increase activity as tolerated. The impression and plan of care has been dictated as directed. : I performed a history and examination of this patient, discussed the same with the dictator. I agree with the dictator's note ,documented as a scribe. Any additional findings or plans will be noted.
--- NOTE | 2020-05-22 15:42 | P.CONS ---
History of Present Illness - Reason for Consult Consult date: 05/22/20 coagulopathy, thrombocytopenia Requesting physician: Chela Lopez - Chief Complaint hypoxia 2/2 covid infection - History of Present Illness Mrs. Balderas is a very pleasant 59-year-old female we've been asked to see in regards to thrombocytopenia. The patient has been acutely ill with Covid and hospitalized for 18 days. Her platelets were only mildly low on admission, this has progressed over time, her platelets were 23,000 today. We have seen patient in the past for iron deficient anemia and she has been worked up for pancytopenia found during routine blood work late 2019. 10/26/19 Hgb 10.8, MCV 84, WBC 2.8K, normal diff, platelet 97K, CMP was unremarkable, normal TSH ,normal B12/folate, ferritin was 18, iron saturation of 8.2%,transferin 309, se rum iron 35, TIBC 428. Colonoscopy in 2018 with hemorrhoids found, otherwise normal. She had gastric sleeve in 2011. 01/31/20, CT AP showed splenomegaly (15 cm). 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 plan was for monitoring, patient was due to be seen in a few months for repeat labs. Baseline platelets low 100s, hemoglobin 11 range, white blood cell 3-4 range. Review of Systems patient is on BiPAP Past Medical History Past Medical History: Blood Disorder, Diabetes Mellitus, GERD/Reflux, GI Bleed, Hyperlipidemia, Hypertension, Thyroid Disorder Additional Past Medical History / Comment(s): HX PANTOCYPOPENIA-CT SCAN REVEALED ENLARGED SPLEEN History of Any Multi-Drug Resistant Organisms: None Reported Past Surgical History: Bariatric Surgery, Cholecystectomy, Heart Catheterization, Tonsillectomy Additional Past Surgical History / Comment(s): COLONOSCOPY. SPINAL FUSION 2018. GASTRIC SLEEVE 2011 Past Anesthesia/Blood Transfusion Reactions: No Reported Reaction Past Psychological History: Depression Smoking Status: Never smoker Past Alcohol Use History: None Reported Past Drug Use History: None Reported - Past Family History Mother Family Medical History: Cancer Father Family Medical History: Cancer Medications and Allergies Home Medications Medication Instructions Recorded Confirmed Type Levothyroxine Sodium [Synthroid] 75 mcg PO DAILY 10/17/15 05/04/20 History Omeprazole [PriLOSEC] 20 mg PO [facility] 10/17/15 05/04/20 History Allopurinol [Zyloprim] 100 mg PO DAILY 03/05/20 05/04/20 History Atorvastatin [Lipitor] 40 mg PO DAILY 03/05/20 05/04/20 History Baclofen [Lioresal] 20 mg PO HS 03/05/20 05/04/20 History Ergocalciferol [Vitamin D2 (1250 1,250 mcg PO [facility] 03/05/20 05/04/20 History Mcg = 31701 Iu)] Escitalopram [Lexapro] 20 mg PO DAILY 03/05/20 05/04/20 History Ferrous Sulfate [Feosol] 325 mg PO DAILY 03/05/20 05/04/20 History Gabapentin [Neurontin] 600 mg PO QID 03/05/20 05/04/20 History Glimepiride [Amaryl] 4 mg PO [facility] 03/05/20 05/04/20 History Lisinopril [Prinivil] 10 mg PO DAILY 03/05/20 05/04/20 History Melatonin 3 mg PO HS 03/05/20 05/04/20 History Pioglitazone [Actos] 30 mg PO DAILY 03/05/20 05/04/20 History metFORMIN HCL [Glucophage] 500 mg PO TID 03/05/20 05/04/20 History Ibuprofen [Motrin] 800 mg PO Q8H PRN 05/04/20 05/04/20 History Allergies Allergy/AdvReac Type Severity Reaction Status Date / Time codeine Allergy Rash/Hives Verified 05/04/20 13:52 Physical Exam Vitals: Vital Signs Temp Pulse Resp BP Pulse Ox 05/22/20 08:00 96.9 F L 99 20 102/63 87 L 05/22/20 04:00 81 18 120/61 87 L 05/22/20 00:00 87 24 110/50 84 L 05/21/20 20:00 98 F 84 22 113/60 88 L 05/21/20 16:01 98.7 F 89 22 110/61 92 L 05/21/20 13:52 85 21 05/21/20 12:00 98.6 F 85 21 120/60 88 L Intake and Output 05/21/20 05/22/2021 22:59 06:59 14:59 Intake Total 180 Output Total 983 625 3353 Balance -260 280 -4807 Intake: Oral 180 Output: Urine 321 546 0548 Other: Voiding Method Indwelling Catheter Weight 139 kg - Constitutional General appearance: mild distress, morbidly obese - EENT Eyes: anicteric sclerae, EOMI ENT: hearing grossly normal - Respiratory Respiratory: bilateral: diminished - Cardiovascular Heart sounds: normal: S1, S2 leg Peripheral Edema: bilateral: Trace - Neurologic Neurologic: CNII-XII intact - Musculoskeletal Musculoskeletal: strength equal bilaterally - Psychiatric Psychiatric: A&O x's 3, appropriate affect, intact judgment & insight Results CBC & Chem 7: 05/22/20 08:40 05/22/20 08:40 Labs: Abnormal Lab Results - Last 24 Hours (Table) 05/21/20 05/21/20 05/21/20 Range/Units 11:56 16:59 20:07 RDW (11.5-15.5) % Plt Count (150-450) k/uL Lymphocytes # (1.0-4.8) k/uL PT (9.0-12.0) sec INR (<1.2) D-Dimer (<0.60) mg/L FEU Sodium (137-145) mmol/L Chloride (98-107) mmol/L Carbon Dioxide (22-30) mmol/L BUN (7-17) mg/dL Glucose (74-99) mg/dL POC Glucose (mg/dL) 163 H 178 H 237 H (75-99) mg/dL Lactate Dehydrogenase (313-618) U/L 05/22/20 05/22/20 05/22/20 Range/Units 06:51 08:40 08:40 RDW (11.5-15.5) % Plt Count (150-450) k/uL Lymphocytes # (1.0-4.8) k/uL PT 12.7 H (9.0-12.0) sec INR 1.2 H (<1.2) D-Dimer 0.93 H (<0.60) mg/L FEU Sodium 132 L (137-145) mmol/L Chloride 89 L (98-107) mmol/L Carbon Dioxide 36 H (22-30) mmol/L BUN 27 H (7-17) mg/dL Glucose 240 H (74-99) mg/dL POC Glucose (mg/dL) 205 H (75-99) mg/dL Lactate Dehydrogenase 1590 H (313-618) U/L 05/22/20 Range/Units 08:40 RDW 16.8 H (11.5-15.5) % Plt Count 23 L (150-450) k/uL Lymphocytes # 0.3 L (1.0-4.8) k/uL PT (9.0-12.0) sec INR (<1.2) D-Dimer (<0.60) mg/L FEU Sodium (137-145) mmol/L Chloride (98-107) mmol/L Carbon Dioxide (22-30) mmol/L BUN (7-17) mg/dL Glucose (74-99) mg/dL POC Glucose (mg/dL) (75-99) mg/dL Lactate Dehydrogenase (313-618) U/L Venous US: report reviewed Assessment and Plan (1) DIC (disseminated intravascular coagulation) Narrative/Plan: Low level DIC 2/2 infection. Low plt, slightly elevated coags, low fibrinogen. Currently no s/s of active bleeding. Reviewed the case with RN who will watch patient very closely for any bleeding. A unit of cryoprecipitate has been ordered for the low fibrinogen of 120 two days ago. Repeat labs in the a.m. Transfuse with platelets for platelet count less than 10,000 or if gross bleeding Current Visit: Yes Status: Acute Priority: Medium Code(s): D65 - DISSEMINATED INTRAVASCULAR COAGULATION SNOMED Code(s): 27424934 (2) Coronavirus infection Current Visit: Yes Status: Acute Priority: High Code(s): B34.2 - CORONAVIRUS INFECTION, UNSPECIFIED SNOMED Code(s): 260769048 (3) Hypoxia Current Visit: Yes Status: Acute Code(s): R09.02 - HYPOXEMIA SNOMED Code(s): 627364942 Plan: HIT antibody negative. No aspirin, NSAIDs or anticoagulation for low platelet count. Doctor attests: I performed a history and physical examination of this patient, developed impression and plan of care. Discussed with dictator. I agree with dictators note, documented as a scribe.
[2020-05-22 16:57] LABS: Glucose,Whole Blood 166 mg/dL (75-99)
[2020-05-22] MEDS: ALBUTEROL HFA INHALER INHALATION PRN (19:56)
[2020-05-22 20:25] LABS: Glucose,Whole Blood 300 mg/dL (75-99)
[2020-05-22] MEDS: BACLOFEN 10 MG TAB PO SCH (20:36)
[2020-05-22] MEDS: INSULIN DETEMIR (LEVEMIR) 100 UNIT/ML SYR SQ SCH (20:37)
[2020-05-22] MEDS: ACETAMINOPHEN TAB 500 MG TAB PO PRN (22:42)
[2020-05-23 06:54] LABS: Glucose,Whole Blood 207 mg/dL (75-99)
[2020-05-23] MEDS: LEVOTHYROXINE 75 MCG TAB PO SCH (07:01)
[2020-05-23] MEDS: GLIMEPIRIDE 4 MG TAB PO SCH (07:01)
[2020-05-23] MEDS: INSULIN ASPART (NovoLOG) 100 UNIT/ML VIAL SQ SCH ×7 (07:01→22:14)
[2020-05-23] MEDS: metFORMIN 500 MG TAB PO SCH ×3 (07:01→17:11)
[2020-05-23] MEDS: methylPREDNISolone SOD SUCCI 125 MG/2 ML VIAL IV SCH ×3 (07:01→17:11)
[2020-05-23] MEDS: PANTOPRAZOLE 40 MG TABLET PO SCH ×2 (07:01→17:10)
[2020-05-23] MEDS: ASCORBIC ACID 500 MG TAB PO SCH (08:25)
[2020-05-23] MEDS: FUROSEMIDE 10 MG/ML 4 ML VIAL IV SCH ×2 (08:25→22:14)
[2020-05-23] MEDS: ZINC SULFATE 220 MG CAP PO SCH (08:25)
[2020-05-23] MEDS: MAG HYDROX/AL HYDROX/SIMETH 30 ML CUP PO SCH ×4 (08:25→22:14)
[2020-05-23] MEDS: ESCITALOPRAM 20 MG TAB PO SCH (08:26)
[2020-05-23] MEDS: allopurinoL 100 MG TAB PO SCH (08:26)
[2020-05-23] MEDS: CYANOCOBALAMIN 500 MCG TAB PO SCH (08:26)
[2020-05-23] MEDS: lisinopriL 10 MG TAB PO SCH (08:26)
[2020-05-23] MEDS: FERROUS SULFATE 325 MG TAB PO SCH (08:26)
[2020-05-23] MEDS: GABAPENTIN 300 MG CAP PO SCH ×4 (08:26→22:15)
[2020-05-23] MEDS: ATORVASTATIN 40 MG TAB PO SCH (08:26)
[2020-05-23] MEDS: CHOLECALCIFEROL 25 MCG (1000 IU) TABLET PO SCH (08:26)
[2020-05-23] MEDS: ACETAMINOPHEN TAB 500 MG TAB PO PRN ×2 (08:35→22:16)
[2020-05-23 09:04] LABS: Anisocytosis Slight; Basophils % (A) 0 %; Eosinophils % (A) 1 %; HCT 37.6 % (34.0-46.0); HGB 13.2 gm/dL (11.4-16.0); Lymphocytes # (A) 0.2 k/uL (1.0-4.8); Lymphocytes % (A) 5 %; MCH 30.2 pg (25.0-35.0); MCV 86.3 fL (80.0-100.0); Mean Platelet Volume 7.6; Monocytes # (A) 0.2 k/uL (0-1.0); Monocytes % (A) 3 %; Neutrophils # (A) 4.6 k/uL (1.3-7.7); Neutrophils % (A) 91 %; RBC 4.36 m/uL (3.80-5.40); WBC 5.1 k/uL (3.8-10.6)
[2020-05-23 09:14] LABS: Platelet Count 19 k/uL (150-450)
[2020-05-23 09:20] LABS: C Reactive Protein <5.0 mg/L (<10.0); LDH 1631 U/L (313-618)
[2020-05-23 09:29] LABS: D-Dimer 0.79 mg/L FEU (<0.60); INR 1.1 (<1.2); Prothrombin Time 11.8 sec (9.0-12.0)
[2020-05-23 09:52] LABS: Partial Thromboplastin Time 20.3 sec (22.0-30.0)
--- NOTE | 2020-05-23 11:20 | P.PN ---
Subjective Progress Note Date: 05/23/20 Acute CoVID 19 pneumonia 79-year-old female patient, morbidly obese with a BMI of 47, was hospitalized for COVID 19 related pneumonia. The patient currently is hypoxic on 3 L of oxygen by nasal cannula. She has comorbidities including obesity with a BMI of 47, hypertension, diabetes mellitus and gout. She also has hyperlipidemia and hypothyroidism. The patient started getting symptoms approximately a week ago, on 04/28/2020 and the patient was diagnosed having Covid 19 infection for a primary care physician's office on 04/29.. She continued to have episodes of fever and subsequently she became progressively more short of breath necessitating emergency department visitation today and ultimately she was hospitalized. Her chest x-ray showing bilateral pulmonary infiltrates peripheral distribution more so on the right compared to the left. The patient was started on steroids.. She is slightly nauseated. She also has loss of taste and smell LDH level is currently at 802 with a CRP of 55 and she had a lactic acid level of 2.1 at the time of admission. There d-dimer is still pending for now. Her white cell count is at 1.4 and the patient is lymphopenic with a lymphocyte count of 0.6 and there is also a drop in her platelet count down to 80 and these are all manifestations of COVID 19 infection. On today's evaluation of 04/27/2020, the patient's oxygenation has gotten worse. I saw her in the emergency department yesterday and she was on 4 L. She progressively required higher oxygen flow and she went up to a high flow oxygen through the nasal cannula airvo which she feels a currently she is on a BiPAP at a pressure of 10/5 with an FiO2 of 100%. She is able to generate a tidal volume around 450-500. Respiratory rate is in the mid 30s low 40s. She feels well. She is in mild degree of respiratory distress. She is still able to converse and talk to her BiPAP mask. Her current pulse ox is 94%. 60 showing diffuse breath and pulmonary infiltrates consistent with Covid 19 related pneumonia. Her white cell count is still down at 1.2. Platelet count is at 70 now which is low. D-dimer is at 0.65, her LDH level is at 835 with a CRP of 56. She is on Decadron. I'm going to switch her to Solu-Medrol. She is currently taking REM should be considered for convalescent plasma and addition to Tocilizumab The patient is seen today 05/06/2020 in follow-up on the regular medical floor. She is currently sitting up in bed. Awake and alert in no acute distress. Currently on BiPAP 10/5 and 100% FiO2. Current saturation 88%. Chest x-ray reveals mild, medically. Residual bilateral airspace disease. Improving compared to previous. This is day #3 of Remdesivir. She received convalescent plasma 1, tocilizumab. D-dimer 0.84. C-reactive protein 2.8. LDH 459. She remains on Decadron, IV Solu-Medrol, vitamin supplements. Patient was reevaluated today on 05/09/2020, remains on BiPAP, she is on 100%, O2 sats is 94%. Surprisingly, the patient seems to be doing well in spite of her significant O2 requirement and BiPAP. Patient received REM, she also received convalescent plasma and ACTEMRA. And so far does not seem to be making that significant turnaround and significant clinical improvement. CBC and basic metabolic profile are normal except for WBC count is 2.0 today. Patient was reevaluated today on 05/10/2020, still requiring significant amount of FiO2, she remains on BiPAP at 90% FiO2, she is on IPAP of 10 and EPAP of 5, and O2 saturation remains marginal. Clinically however the patient feels better mikhail athing easier, and have d-dimer is not that significantly elevated but it is nonetheless abnormal. Hence I recommended a CT angiogram of the chest to be done today. Renal profile is normal. CBC continues to show leukopenia with WBC count of 2.0. Electrolytes are normal. Patient was reevaluated today on 05/11/2020, patient is basically about the same. Remains on BiPAP. Her FiO2 is still at 90%, and her O2 saturation is in the low 90s. Patient is on IPAP of 10 and EPAP of 5, seems to be very comfortable. CT angiogram of the chest yesterday showed bilateral interstitial infiltrates, no evidence of thromboembolic disease/pulmonary embolism. WBC count is 2.2 hemoglobin is 11.6. A left lites are normal renal profile is normal clinically the patient is fairly comfortable, however she is still requiring significant high FiO2. Reevaluated today on 05/12/2020, patient is feeling much better today, breathing a lot easier, she is now on 80% FiO2 remains on BiPAP with IPAP of 10 and EPAP of 5. But her FiO2 was cut down to 80%, and I will cut it down further to 70% and her O2 saturation seems to be significantly improved. Patient feels that she felt much better after the Lasix was given yesterday. I will recommend another dose of Lasix to be given today. Her CT angiogram of the chest yesterday questioned mild interstitial edema. However I felt it was all related to her underlying Covid 19 pneumonitis. Nonetheless Lasix was given, and clinically the patient felt better. Labs today were all reviewed she had WBC count of 2.3 hemoglobin 12.4 lites are normal renal profile remains normal. Progress note dated 05/13/2020. Currently, the patient remains on BiPAP, at 70%. She's feeling better today. She feels less short of breath. Her BiPAP settings are IPAP 10, and EPAP 5. I did tell the patient to move around when she is lying in bed. She should lie down on her right side, left side, supine, and if possible, try to prone herself. Current laboratory data includes a white count of 2, hemoglobin 11.7, hematocrit 35.2, platelet count 94,000. Sodium is 136, potassium 3.4, chlorides 101, CO2 33, anion gap 2, BUN [address], [address] angiogram on May 10 showed no evidence of pulmonary embolism, but did show moderately severe pulmonary interstitial edema/infiltrates. Progress note dated 05/14/2020. The patient remains on BiPAP at 70%. She feels much improved. Her IPAP of 10 and EPAP is fine. She's feeling much less short of breath. I did tell her to move around in bed, right side down, left side down, supine, and even on her stomach if she can. No new labs today to look at. No recent chest x-rays to evaluate either. Medications are appropriate at this time. CT angiogram from May 10 is reviewed. Progress note dated 05/15/2020. The patient remains on BiPAP, settings of IPAP 10, and EPAP of 5. She is on 70%. Her saturations are right around 90% or so. Despite that, the patient states that she is feeling much better. She has been moving around in bed. His been laying on her right side, left side, supine, even on her stomach at times. No new labs today other than a sodium of 137, potassium 4, chloride 98, CO2 34, anion gap 5, BUN 19, creatinine 0.67. The patient is seen today 05/16/2020 in follow-up on the selective care unit. She is currently resting fairly comfortably in bed. She is continued on BiPAP currently 10/5 and 70% FiO2. She is maintaining O2 saturations about 85-86%. Today she is feeling mostly tired and fatigued. Breathing is about the same. No better but no worse currently. She remains on IV Solu-Medrol, Lovenox, vitamin supplements. Blood glucose 146. The patient is seen today 05/17/2020 in follow-up on the selective care unit. She remains awake and alert in no acute distress. She is still requiring BiPAP support 10/5 and 80% FiO2 to maintain O2 saturations in the mid 80s. She's been afebrile. Hemodynamically stable. Chest x-ray reveals cardiomegaly, continued bilateral airspace disease, slightly worsened compared to previous. Sodium 133. Potassium 4.5. Creatinine 0.67. She remains on Lovenox, IV Solu-Medrol, vitamin supplements. The patient is seen today 05/19/2020 in follow-up on the selective care unit. She is currently sitting up at the bedside. Awake and alert in no acute distress. She is still on BiPAP 12/6 and 90% FiO2. White count 4.3. Hemoglobin 12.6. Platelet count dropped to 37,000. Lymphocytes 0.3. Sodium 133. Potassium 4.5. Creatinine 0.71. Remains on IV Solu-Medrol, vitamin supplements. Lovenox which will be held. 05/20/2020 the patient is being seen for a follow-up. The patient remains on BiPAP at a pressure of 12/6 with an FiO2 of 90%. Remains on IV Solu-Medrol. She is awake and alert. She denies having any significant shortness of breath. Hemodynamically stable. She had prolonged hospitalization due to complications of Covid 19. She is a morbidly obese female patient with a BMI of 49. She was initially on 3 L about 2 by nasal cannula. She is known to have diabetes, gout and hypertension and hyperlipidemia and hypothyroidism. The patient was diagnosed on 04/28/2020 and since then her condition progressively decompen sated. She was aggressively treated over the past 2 weeks here in the hospital and her blood work showing a component of thrombocytopenia, for that reason anticoagulation was held. The patient remains on IV Solu-Medrol. She is taking 60 mg IV every 6 hours. The last chest x-ray was done on May 17 the patient had bilateral lower lobe pulmonary infiltrates . Also, there is history drop in the platelet count which is down to 30. Her white second is at 2.5 with a hemoglobin of 11.7. Rest of the blood work essentially within normal limits. The latest chest x-ray was done on 05/09/2020. She is able to tolerate the BiPAP reasonably well. Her pulse ox is a mid 80s this morning. She is able to generate a tidal volume of IVC with a respiratory rate of 26 cm ventilation of 15. She is currently off Lovenox. She is not taking any antiplatelet agents. Levaquin is a 15 units a day along with 5 units with meals 3 times a day. She is also developing increased swelling in lower extremities On today's evaluation, the patient is being seen for follow-up for Covid 19 related pneumonia. The patient is still on BiPAP at a pressure of 12/6 with an FiO2 of 90%. Her pulse ox is around 91%. She is hemodynamically stable. The patient is morbidly obese and her current BMI is 49.7. Note that she progressively got worse and she end up on BiPAP therapy. She is on IV Solu Medrol 60 mg every 6 hours. Her chest x-ray showing some limited improvement from yesterday where the diaphragms were better visualized. She is able to tolerate the BiPAP well. On today's evaluation, the patient is generating a tidal volume of 750 and her current respiratory rate is in the order of 20-27. She had some increased swelling in lower extremity bilaterally and the patient was started on Lasix yesterday and the patient is a negative fluid balance of 750 mL over the past 24 hours. She is still has significant amount of edema and she remains on Lasix at a dose of 40 mg IV every 12 hours. Platelet count currently is down to 30. DIC profile was essentially negative. The inflammatory markers from yesterday were elevated. On 05/22/2020 currently the patient remains on BiPAP at a pressure of 12/6 with an FiO2 of 90%. Her saturations remained marginal. The patient is generating adequate tidal volumes of 570 on her machine. She was started on diuretics yesterday and the patient has been negative fluid balance of 2 L over the past 24 hours. She is awake and calm and comfortable. She wasn't having issues with thrombocytopenia. The platelet count today is 23. Hematology is going to evaluate the patient. The coagulation profile is within normal limits. LDH level is at 1590 with a CRP of less than 5. She is awake and alert. She is following commands and answering questions face is able to take sips of soup and oatmeal. She is resting comfortably in bed. She remains on IV Solu-Medrol. She is also on Lasix 40 mg IV every 12 hours. She is also on Levemir insulin 15 units along with a prescription coverage. No anticoagulation for now because of her underlying thrombocytopenia. On 05/23/2020 I'm seeing the patient for a follow-up. She is awake and alert. She still on a BiPAP at a pressure of 12/6 cm of water. She has also an FiO2 of 90%. Overall, she is awake and alert and she is following commands and answering questions. She remains in good spirits she is calm and comfortable. No new complaints pH remains on IV Solu-Medrol. She also on Lasix 40 mg every 12 hours. Her platelet counts are still low at 19,000. The patient was seen by hematology. The patient was given units of cryoprecipitate yesterday. In terms of her pulmonary status, the patient is stable. The patient is not having any signs of bleeding. She is unable to tolerate some oral intake. In terms of her inflammatory markers, the levels are still up with an LDH level of 161, CRP of less than 5. Her AHI the antibodies came back negative. Rest of the blood work is all within normal limits. I will see her condition essentially unchanged compared to yesterday. In terms of her blood sugar control, the patient is on Levemir insulin 15 units in addition to NovoLog 5 units with meals and a sliding scale coverage. No chest x-ray from today. Her last chest x-ray was from [facility]. Objective - Vital Signs Vital signs: Vital Signs Temp 97.7 F 05/23/20 08:22 Pulse 79 05/23/20 08:22 Resp 23 05/23/20 08:22 BP 138/70 05/23/20 08:22 Pulse Ox 87 L 05/23/20 08:22 Intake & Output 05/22/20 05/23/20 05/23/20 18:59 06:59 18:59 Intake Total 827 120 Output Total 2200 1300 Balance -1373 -1300 120 Weight 139 kg 135 kg Intake: Oral 600 120 Blood Product 227 Pooled Cryoprecipitate 112 Unit [id number] Output: Urine 2200 1300 Other: Voiding Method Indwelling Catheter Indwelling Catheter - Exam Gen. appearance morbidly obese and she is calm and comfortable lying acute respiratory distress, currently on and the patient is a bit short of breath, currently on a BiPAP at a pressure of 12/6 with an FiO2 of 90%. Head exam was generally normal. There was no scleral icterus or corneal arcus. Mucous membranes were moist. Neck was supple and without jugular venous distension, thyromegaly, or carotid bruits. Carotids were easily palpable bilaterally. There was no adenopathy. Lungs sounds are diminished the patient is crackles in the lung bases more so on the right Cardiac exam revealed the PMI to be normally situated and sized. The rhythm was regular and no extrasystoles were noted during several minutes of auscultation. The first and second heart sounds were normal and physiologic splitting of the second heart sound was noted. There were no murmurs, rubs, clicks, or gallops. Abdominal exam revealed normal bowel sounds. The abdomen was soft, non-tender, and without masses, organomegaly, or appreciable enlargement of the abdominal aorta. Examination of the extremities revealed easily palpable radial, femoral and pedal pulses. There was no cyanosis, clubbing or edema. Examination of the skin revealed no evidence of significant rashes, suspicious appearing nevi or other concerning lesions. Neurologically, the patient is awake and alert and the patient does not have any focal neurological deficit. Cranial nerves are essentially intact. - Labs CBC & Chem 7: 05/23/20 08:44 05/22/20 08:40 Labs: Abnormal Lab Results - Last 24 Hours (Table) 05/22/20 05/22/20 05/22/20 Range/Units 12:13 16:44 20:24 RDW (11.5-15.5) % Plt Count (150-450) k/uL Lymphocytes # (1.0-4.8) k/uL APTT (22.0-30.0) sec Fibrinogen (200-500) mg/dL D-Dimer (<0.60) mg/L FEU POC Glucose (mg/dL) 130 H 166 H 300 H (75-99) mg/dL Lactate Dehydrogenase (313-618) U/L 05/23/20 05/23/20 05/23/20 Range/Units 06:52 08:44 08:44 RDW 17.0 H (11.5-15.5) % Plt Count 19 L* (150-450) k/uL Lymphocytes # 0.2 L (1.0-4.8) k/uL APTT 20.3 L (22.0-30.0) sec Fibrinogen 158 L (200-500) mg/dL D-Dimer 0.79 H (<0.60) mg/L FEU POC Glucose (mg/dL) 207 H (75-99) mg/dL Lactate Dehydrogenase (313-618) U/L 05/23/20 Range/Units 08:44 RDW (11.5-15.5) % Plt Count (150-450) k/uL Lymphocytes # (1.0-4.8) k/uL APTT (22.0-30.0) sec Fibrinogen (200-500) mg/dL D-Dimer (<0.60) mg/L FEU POC Glucose (mg/dL) (75-99) mg/dL Lactate Dehydrogenase 1631 H (313-618) U/L Assessment and Plan Plan: 1 Acute Covid 19 related pneumonia, symptoms started on 04/28/2020, diagnosed to be positive on 04/29/2020. She has completed Remdesivir, tocilizumab and convalescent plasma. The patient has been very slow to progress and the patient has required BiPAP throughout the past 2 weeks. The last chest x-ray still showing consolidation lung bases bilaterally repeat chest x-ray from today is undifferentiated. The findings are essentially the same and the patient remains ventilator dependent at the same settings of 12/6 with FiO2 of 90%. I would say her condition essentially unchanged. The pulse ox currently is at 91%. I do not think there is any room for weaning the FiO2 on today's evaluation. Inflammatory markers remain elevated. I'm a bit concerned of an underlying normal cytopenia. Platelet count is down to 19 2 Acute hypoxic respiratory failure secondary to above, currently on BiPAP 12/6 and 90% FiO2 3 Fever secondary to above number recovered 4 Leukopenia, lymphopenia and thrombocytopenia secondary to above, platelets down to 19k 5 Mild elevation of inflammatory markers secondary to Covid 19 infection 6 Obesity with a BMI of 49.0 7 Diabetes mellitus type 2 8 Hypertension 9 Hyperlipidemia 10 Hypothyroidism Plan Remains on IV Solumedrol ,vitamin supplements Repeat chest x-ray tomorrow DIC profile was was done and hematology thinks that there may be a low-grade DIC underlying Thrombocytopenia. She was given cryoprecipitate. HIT antibodies was negative Count is up to 19K and the patient is going to be seen by hematology. Lovenox to be held due to low platelet count Doppler of the lower extremities Lasix 40 mg every 12 hours Maintain negative fluid balance Remains on BiPAP 12/6 and 90% FiO2, wean FiO2 down to 80% Titrate down the FiO2 as tolerated She has been slow to progress Possible platelet transfusion today We'll continue to follow
[2020-05-23 12:12] LABS: Glucose,Whole Blood 189 mg/dL (75-99)
--- NOTE | 2020-05-23 14:14 | P.PN ---
Subjective Progress Note Date: 05/23/20 [id number] female admitted with acute hypoxic respiratory failure secondary to covid- 19 pneumonia, hypertension, diabetes mellitus, obesity and multiple other medical issues. Oxygen requirements worsened, requiring BiPAP. Chest x-ray reporting bilateral interstitial and patchy airspace opacities remain ,mild cardiomegaly. Denies chest pain, palpitations, reports chest soreness from nonproductive cough. Received a dose of Actemra, maintained on Remdesevir, IV steroids , antibiotics and multivitamin supplements. Afebrile, LDH and C- reactive protein trending down. 05/07/2020 Maintained on Remdesevir/covid regimine. Continues to require BiPAP 100% to maintain O2 sats in the high 80s to 90s. Complains of anxiety regarding mask. Deep breaths trigger cough. Afebrile. Labs pending. Denies chest pain, palpitations. 05/08/2020 sitting up at side of bed, continues to require 100% BiPAP. Ma intained on Covid regimen including Remdesevir. T-max 99.1. Occasional nonproductive cough. Denies chest pain, 05/09/20 unable to tolerate BiPAP decreased to 90% with O2 sats decreased to 84%, currently back up on 100% BiPAP, maintaining O2 sats in the 90s on 100s. T-max 99.1, labs pending. Anxiety controlled. Maintained on Covid regimen, completed 5 doses of Remdesevir. Labs pending. 05/10/2020 maintaining O2 sats in the low 90s on 95% BiPAP. Continues on IV steroids, vitamin C, vitamin D, zinc. Afebrile. Reports less coughing. Denies chest pain, palpitations. 05/13/2020 patient feeling better, reports she has " turned the corner". Maintaining O2 sats in the 90s on BiPAP 70%. Minimal nonproductive cough. Denies chest pain, palpitations. Afebrile, Received Lasix yesterday, potassium 3.4.,creatinine 0.69. 05/14/2020 continues feeling better, maintaining O2 sats in the 90s on BiPAP 70%. Occasional nonproductive cough. Mild pedal edema. Denies chest pain, palpitations. 05/15/2020 maintaining O2 sats in the low 90s on 70% BiPAP. Received Lasix yesterday, less pedal edema, renal function stable. Breathing easier. Blood sugars controlled. 05/16/2020 maintaining O2 sats in the low 90s on nonrebreather and high flow airvo. Afebrile, sodium trending down, 123, creatinine 1.8. Continues to feel better and reporting less shortness of breath. 05/17/2020 80% BiPAP, maintaining O2 sats in the 90s. Reports last night she tolerated 15 minutes on 15 L high flow nasal cannula plus nonrebreather mask .Nonproductive cough. Less tired, reports more energy. Blood sugars controlled. Denies chest pain, palpitations. Afebrile. 05/20/2020 maintained on BiPAP 90%, maintaining O2 sats in the high 80s to low 90s. Hemoglobin 11.7, Platelets decreased to 30, currently off of Lovenox .Afebrile, WBC 2.9. Chest x-ray pending. 05/21/2020 continues on BiPAP 90% maintaining O2 sats in the high 80s. Reports that well, feels good. Afebrile. Yesterday's x-ray reported persistent low lung volumes, cardiomegaly, bilateral multifocal opacity is consistent with Covid 19 infectionno significant change. Doppler reported Bilateral lower extremities negative for DVT. Diuresing well on Lasix IV push with 24-hour I&O reflecting a negative fluid balance. BUN 25, creatinine 0.7. Hit antibodies pending. 05/22/2020 maintaining O2 sats of 87 to low 90s on 90% BiPAP. Diuresing well on Lasix IV push with 24-hour I&O reflecting a negative fluid balance. BUN 27/creatinine 0.73. Hemoglobin 13.5, platelets 23-anticoagulation remains on hold. Hematology consult in place, recommendations pending. Reports sleeping well with no shortness of breath. Afebrile, normal WBC. 05/23/2020 remains on same BiPAP settings of 90% maintaining O2 sats of 90. in October she was referred to hematology/Dr. Carrion further workup regarding pancytopenia. Bone marrow was completed and was told it was fine and that she had iron deficient anemia and needed to proceed with iron transfusions. Reports she did not have a chance to start the transfusions prior to being hospitalized with Covid. Platelets currently 19 without evidence of bleeding, no petechiae .evaluated by hematology yesterday with recommendations noted and appreciated. Received transfusion of cryoprecipitate with fibrinogen up to 158. Objective - Vital Signs Vital signs: Vital Signs Temp 97.8 F 05/23/20 12:00 Pulse 77 05/23/20 12:00 Resp 20 05/23/20 12:00 BP 133/63 05/23/20 12:00 Pulse Ox 92 L 05/23/20 12:00 Intake & Output 05/22/20 05/23/20 05/23/20 18:59 06:59 18:59 Intake Total 827 660 Output Total 2200 1300 725 Balance -1373 -1300 -65 Weight 139 kg 135 kg Intake: Oral 600 660 Blood Product 227 Pooled Cryoprecipitate 112 Unit [id number] Output: Urine 2200 1300 725 Other: Voiding Method Indwelling Catheter Indwelling Catheter Indwelling Catheter - Exam PHYSICAL EXAM: VITAL SIGNS: [As above] GENERAL: Alert and oriented 3, Sitting up in bed wearing BiPAP,NAD HEENT: Conjunctivae normal. eyes normal. CARDIOVASCULAR: S1, S2 regular.No murmur RESPIRATION: Diminished bases with bibasilar crackles ABDOMEN: Soft, nontender,nondistended.+BS, No guarding, no masses palpable. LEGS: Trace edema, no cyanosis, no clubbing. No calf pain. NERVOUS SYSTEM: Cranial N 2-12 grossly normal.No focal deficits. Skin: Warm and dry, no rash - Labs CBC & Chem 7: 05/23/20 08:44 05/22/20 08:40 Labs: Abnormal Lab Results - Last 24 Hours (Table) 05/22/20 05/22/20 05/23/20 Range/Units 16:44 20:24 06:52 RDW (11.5-15.5) % Plt Count (150-450) k/uL Lymphocytes # (1.0-4.8) k/uL APTT (22.0-30.0) sec Fibrinogen (200-500) mg/dL D-Dimer (<0.60) mg/L FEU POC Glucose (mg/dL) 166 H 300 H 207 H (75-99) mg/dL Lactate Dehydrogenase (313-618) U/L 04/05/23/20 05/23/20 Range/Units 08:44 08:44 08:44 RDW 17.0 H (11.5-15.5) % Plt Count 19 L* (150-450) k/uL Lymphocytes # 0.2 L (1.0-4.8) k/uL APTT 20.3 L (22.0-30.0) sec Fibrinogen 158 L (200-500) mg/dL D-Dimer 0.79 H (<0.60) mg/L FEU POC Glucose (mg/dL) (75-99) mg/dL Lactate Dehydrogenase 1631 H (313-618) U/L 05/23/20 Range/Units 12:08 RDW (11.5-15.5) % Plt Count (150-450) k/uL Lymphocytes # (1.0-4.8) k/uL APTT (22.0-30.0) sec Fibrinogen (200-500) mg/dL D-Dimer (<0.60) mg/L FEU POC Glucose (mg/dL) 189 H (75-99) mg/dL Lactate Dehydrogenase (313-618) U/L Assessment and Plan Assessment: Sepsis, present on admission secondary to Acute Covid-19 pneumonia, status post convalescent plasma, received tocilizumab, completed Remdesevir Acute hypoxic respiratory failure secondary to the above,BiPAP dependent. Hyponatremia, hypovolemic, suspect diuretic induced Acute anxiety secondary to the above and BiPAP mask, improved leukopenia, lymphopenia and thrombocytopenia secondary to above. Low grade DIC as per hematology, status post cryoprecipitate Hit antibodies negative Diabetes mellitus type 2 Hypertension Hyperlipidemia Hypothyroidism Morbid obesity, BMI 47 Plan: Continue on current medication regimen, monitoring and symptomatic christie atment.Covid regimen. COVID cocktail. Lovenox remains on hold related to thrombocytopenia.Evaluated by hematology with recommendations noted and appreciated including orders to transfuse if platelets less than 10. Close monitoring for bleeding. CBC, electrolytes with repeat labs ordered for a.m. P rognosis guarded given multiple complex medical issues. Increase activity as tolerated. The impression and plan of care has been dictated as directed. : I performed a history and examination of this patient, discussed the same with the dictator. I agree with the dictator's note ,documented as a scribe. Any additional findings or plans will be noted.
--- NOTE | 2020-05-23 16:55 | P.PN ---
Subjective Progress Note Date: 05/23/20 Principal diagnosis: thrombocytopenia Pt on BiPap, she is able to carry on a conversation, no acute c/o. Objective - Vital Signs Vital signs: Vital Signs Temp 97.8 F 05/23/20 12:00 Pulse 77 05/23/20 12:00 Resp 20 05/23/20 12:00 BP 133/63 05/23/20 12:00 Pulse Ox 92 L 05/23/20 12:00 Intake & Output 05/22/20 05/23/20 05/23/20 18:59 06:59 18:59 Intake Total 827 780 Output Total 2200 1300 725 Balance -1373 -1300 55 Weight 139 kg 135 kg Intake: Oral 600 780 Blood Product 227 Pooled Cryoprecipitate 112 Unit [id number] Output: Urine 2200 1300 725 Other: Voiding Method Indwelling Catheter Indwelling Catheter Indwelling Catheter - Constitutional General appearance: Present: cooperative, morbidly obese, no acute distress - EENT Eyes: Present: anicteric sclerae, EOMI ENT: Present: hearing grossly normal - Respiratory Respiratory: bilateral: diminished, rhonchi (scattered) - Cardiovascular Heart sounds: normal: S1, S2 - Peripheral edema leg Peripheral Edema: bilateral: Trace - Gastrointestinal General gastrointestinal: Present: normal bowel sounds, soft - Neurologic Neurologic: Present: CNII-XII intact - Musculoskeletal Musculoskeletal: Present: generalized weakness - Psychiatric Psychiatric: Present: A&O x's 3, appropriate affect, intact judgment & insight - Labs CBC & Chem 7: 05/23/20 08:44 05/22/20 08:40 Labs: Abnormal Lab Results - Last 24 Hours (Table) 05/22/20 05/22/20 05/23/20 Range/Units 16:44 20:24 06:52 RDW (11.5-15.5) % Plt Count (150-450) k/uL Lymphocytes # (1.0-4.8) k/uL APTT (22.0-30.0) sec Fibrinogen (200-500) mg/dL D-Dimer (<0.60) mg/L FEU POC Glucose (mg/dL) 166 H 300 H 207 H (75-99) mg/dL Lactate Dehydrogenase (313-618) U/L 05/23/20 05/23/20 05/23/20 Range/Units 08:44 08:44 08:44 RDW 17.0 H (11.5-15.5) % Plt Count 19 L* (150-450) k/uL Lymphocytes # 0.2 L (1.0-4.8) k/uL APTT 20.3 L (22.0-30.0) sec Fibrinogen 158 L (200-500) mg/dL D-Dimer 0.79 H (<0.60) mg/L FEU POC Glucose (mg/dL) (75-99) mg/dL Lactate Dehydrogenase 1631 H (313-618) U/L 05/23/20 Range/Units 12:08 RDW (11.5-15.5) % Plt Count (150-450) k/uL Lymphocytes # (1.0-4.8) k/uL APTT (22.0-30.0) sec Fibrinogen (200-500) mg/dL D-Dimer (<0.60) mg/L FEU POC Glucose (mg/dL) 189 H (75-99) mg/dL Lactate Dehydrogenase (313-618) U/L - Imaging and Cardiology Chest x-ray: report reviewed Assessment and Plan (1) DIC (disseminated intravascular coagulation) Narrative/Plan: Low level DIC 2/2 infection. S/P cryo, increase in fibrinogen today, lab in AM. Coags were normal today Plt further decreased to 19,000, no bleeding reported by opt or staff. No transfusion today, CBC in AM. Transfuse with platelets for platelet count less than 10,000 or if gross bleeding Current Visit: Yes Status: Acute Priority: Medium Code(s): D65 - DISSEMINATED INTRAVASCULAR COAGULATION SNOMED Code(s): 92552778 (2) Coronavirus infection Current Visit: Yes Status: Acute Priority: High Code(s): B34.2 - CORONAVIRUS INFECTION, UNSPECIFIED SNOMED Code(s): 490516328 (3) Hypoxia Current Visit: Yes Status: Acute Code(s): R09.02 - HYPOXEMIA SNOMED Code(s): 534253873 Plan: HIT antibody negative. No aspirin, NSAIDs or anticoagulation for low platelet count. Doctor attests: I performed a history and physical examination of this patient, developed impression and plan of care. Discussed with dictator. I agree with dictators note, documented as a scribe.
[2020-05-23 17:06] LABS: Glucose,Whole Blood 211 mg/dL (75-99)
[2020-05-23 20:04] LABS: Glucose,Whole Blood 220 mg/dL (75-99)
[2020-05-23] MEDS ORDERED: INSULIN DETEMIR (LEVEMIR) 100 UNIT/ML SYR SQ SCH (21:00)
[2020-05-23] MEDS: BACLOFEN 10 MG TAB PO SCH (22:15)
[2020-05-24] MEDS: methylPREDNISolone SOD SUCCI 125 MG/2 ML VIAL IV SCH ×4 (01:30→17:51)
[2020-05-24 06:24] LABS: Glucose,Whole Blood 218 mg/dL (75-99)
[2020-05-24] MEDS: metFORMIN 500 MG TAB PO SCH ×3 (06:48→17:49)
[2020-05-24] MEDS: LEVOTHYROXINE 75 MCG TAB PO SCH (06:48)
[2020-05-24] MEDS: PANTOPRAZOLE 40 MG TABLET PO SCH ×2 (06:48→17:49)
[2020-05-24] MEDS: INSULIN ASPART (NovoLOG) 100 UNIT/ML VIAL SQ SCH ×7 (06:49→20:45)
[2020-05-24] MEDS: GLIMEPIRIDE 4 MG TAB PO SCH (06:50)
--- NOTE | 2020-05-24 07:53 | XR ---
EXAMINATION TYPE: XR chest 1V portable DATE OF EXAM: 05/24/2020 Comparison: 05/22/2020 Clinical History: 59-year-old female shortness of breath, COVID Findings: Heart mildly enlarged. Low lung volumes. Diffuse interstitial changes and patchy lower lung opacities , left greater than right. There may be slight improvement in aeration in the lower lungs. Impression: 1. Mild cardiomegaly and hypoventilatory changes. 2. Diffuse interstitial densities and patchy lower lung opacities. The lower lung infiltrates show sl ight improvement.
--- NOTE | 2020-05-24 08:36 | P.CRDCN ---
History of Present Illness History of present illness: HISTORY OF PRESENTING ILLNESS This is a pleasant 59-year-old female past medical history significant for hypertension, diabetes mellitus, dyslipidemia, GERD, pancytopenia and morbid obesity. She follows in the office with Lisseth. We have been asked to see in consultation for hypertension. She has been admitted since 05/04 for treatment of COVID 19. She states today she is starting to feel better however is still on Bipap, but speaking in full sentences. She denies chest pain, dizziness or palpitations. She has a history of pancytopenia, however her platelets on this admission have consistently dropped and were down to 19 yesterday. Hematology is following and given cryoprecipitate. HIT antibodies are negative. They are calling this low level DIC secondary to COVID. DIAGNOSTICS EKG reveals sinus mechanism with no acute ST changes. Telemetry tracings indicate . Chest xray diffuse interstitial densities and patchy lower lung opacities, slight improvement noted. Laboratory reviewed, WBC 5.1, hgb 13.2, plt 19 down from 80 on admission and 133 in February, d-dimer 0.79, sodium 132/, potassium 4, creatinine 0.73. Current cardiac medications include lisinopril 10 mg daily and hydrochlorothiazide was added today per PCP. Most recent echocardiogram obtained in the office October 2019 revealed preserved LV systolic function, mild aortic regurgitation, mild mitral r egurgitation, mild tricuspid regurgitation and mild pulmonary hypertension with an RVSP of 37 mmHg Most recent stress test with a Lexiscan stress test August 2019 was negative for reversible cardiac ischemia. REVIEW OF SYSTEMS At the time of my exam: CONSTITUTIONAL: Denies fever or chills. CARDIOVASCULAR: Complains of shortness of breath, improved since admission. Denies chest pain, orthopnea, PND or palpitations. RESPIRATORY: Denies cough. GASTROINTESTINAL: Denies abdominal pain, diarrhea, constipation, nausea or vomiting. MUSCULOSKELETAL: Denies myalgias. NEUROLOGIC: Denies numbness, tingling, headacbe or weakness. ENDOCRINE: Denies fatigue, weight change, polydipsia or polyurina. GENITOURINARY: Denies burning, hematuria or urgency with micturation. HEMATOLOGIC: Denies history of anemia or bleeding. PHYSICAL EXAMINATION Blood pressure 171/72 heart rate 72 afebrile and maintaining low oxygen saturation of 87% on bipap. CONSTITUTIONAL: No apparent distress. HEENT: Head is normocephalic. Pupils are equal, round. Sclerae anicteric. Mucous membranes of the mouth are moist. No JVD. No carotid bruit. CHEST EXAMINATION: Lungs are clear to auscultation. No chest wall tenderness is noted on palpation or with deep breathing. HEART EXAMINATION: Regular rate and rhythm. S1, S2 heard. Soft systolic ejection murmur at the base, no gallops or rub. ABDOMEN: Soft, nontender. Positive bowel sounds. EXTREMITIES: 2+ peripheral pulses, no lower extremity edema and no calf tenderness. NEUROLOGIC EXAMINATION: Patient is awake, alert and oriented x3. ASSESSMENT COVID 19 Hypertension Thrombocytopenia Acute hyopxic respiratory failure Diabetes mellitus Hypertension Dyslipidemia Morbid obesity, BMI 46 PLAN Continue current medical regimen. Hematology following closely for thrombocytopenia. Lisinopril and hydrochlorothiazide is a reasonable combination. From a cardiac perspective, no further recommendations at this time. Thank you kindly for this consultation. Nurse Practitioner note has been reviewed, I agree with a documented findings and plan of care. Patient was seen and examined. Past Medical History Past Medical History: Blood Disorder, Diabetes Mellitus, GERD/Reflux, GI Bleed, Hyperlipidemia, Hypertension, Thyroid Disorder Additional Past Medical History / Comment(s): HX PANTOCYPOPENIA-CT SCAN REVEALED ENLARGED SPLEEN History of Any Multi-Drug Resistant Organisms: None Reported Past Surgical History: Bariatric Surgery, Cholecystectomy, Heart C atheterization, Tonsillectomy Additional Past Surgical History / Comment(s): COLONOSCOPY. SPINAL FUSION 2018. GASTRIC SLEEVE 2011 Past Anesthesia/Blood Transfusion Reactions: No Reported Reaction Past Psychological History: Depression Smoking Status: Never smoker Past Alcohol Use History: None Reported Past Drug Use History: None Reported - Past Family History Mother Family Medical History: Cancer Father Family Medical History: Cancer Medications and Allergies Home Medications Medication Instructions Recorded Confirmed Type Levothyroxine Sodium [Synthroid] 75 mcg PO DAILY 10/17/15 05/04/20 History Omeprazole [PriLOSEC] 20 mg PO AC-BRKFST 10/17/15 05/04/20 History Allopurinol [Zyloprim] 100 mg PO DAILY 03/05/20 05/04/20 History Atorvastatin [Lipitor] 40 mg PO DAILY 03/05/20 05/04/20 History Baclofen [Lioresal] 20 mg PO HS 03/05/20 05/04/20 History Ergocalciferol [Vitamin D2 (1250 1,250 mcg PO DELACRUZ 03/05/20 05/04/20 History Mcg = [id number] Iu)] Escitalopram [Lexapro] 20 mg PO DAILY 03/05/20 05/04/20 History Ferrous Sulfate [Feosol] 325 mg PO DAILY 03/05/20 05/04/20 History Gabapentin [Neurontin] 600 mg PO QID 03/05/20 05/04/20 History Glimepiride [Amaryl] 4 mg PO AC-BRKFST 03/05/20 05/04/20 History Lisinopril [Prinivil] 10 mg PO DAILY 03/05/20 05/04/20 History Melatonin 3 mg PO HS 03/05/20 05/04/20 History Pioglitazone [Actos] 30 mg PO DAILY 03/05/20 05/04/20 History metFORMIN HCL [Glucophage] 500 mg PO TID 03/05/20 05/04/20 History Ibuprofen [Motrin] 800 mg PO Q8H PRN 05/04/20 05/04/20 History Allergies Allergy/AdvReac Type Severity Reaction Status Date / Time codeine Allergy Rash/Hives Verified 05/04/20 13:52 Physical Exam Vitals: Vital Signs Temp Pulse Resp BP Pulse Ox 05/24/20 04:00 98.2 F 72 22 171/72 87 L 05/24/20 00:00 97.9 F 80 21 144/72 87 L 05/23/20 20:00 98.1 F 86 21 135/64 88 L 05/23/20 17:02 97.9 F 86 24 123/65 89 L 05/23/20 12:00 97.8 F 77 20 133/63 92 L 05/23/20 08:22 97.7 F 79 23 138/70 87 L Intake and Output 05/23/20 05/24/20 05/24/20 22:59 06:59 14:59 Intake Total 300 Output Total 700 1000 Balance -400 -1000 Intake: Oral 300 Output: Urine 700 1000 Uretheral (Trevino) 700 Other: Voiding Method Indwelling Catheter Indwelling Catheter Weight 135 kg Results 05/23/20 08:44 05/22/20 08:40 Cardiac Enzymes 05/23/20 Range/Units 08:44 Lactate Dehydrogenase 1631 H (313-618) U/L Coagulation 04/15/21 Range/Units 08:44 PT 11.8 (9.0-12.0) sec APTT 20.3 L (22.0-30.0) sec CBC 05/23/20 Range/Units 08:44 WBC 5.1 (3.8-10.6) k/uL RBC 4.36 (3.80-5.40) m/uL Hgb 13.2 (11.4-16.0) gm/dL Hct 37.6 (34.0-46.0) % Plt Count 19 L* (150-450) k/uL Current Medications Generic Name Dose Route Start Last Admin Trade Name Freq PRN Reason Stop Dose Admin Acetaminophen 1,000 mg 05/06/20 10:54 05/23/20 22:16 Acetaminophen Tab 500 Mg Tab PO 1,000 mg Q6HR PRN Administration Fever and/ or Pain Al Hydroxide/Mg Hydroxide 20 ml 05/12/20 13:00 05/23/20 22:14 Mag Hydrox/Al Hydrox/Simeth 30 Ml Cup PO 20 ml QID YESSI Administration Albuterol Sulfate 2 puff 05/04/20 12:36 05/05/20 08:07 Albuterol Hfa Inhaler INHALATION 2 puff RT-Q6H PRN Administration Shortness Of Breath Or Wheezing Allopurinol 100 mg 05/05/20 09:00 05/23/20 08:26 Allopurinol 100 Mg Tab PO 100 mg DAILY YESSI Administration Ascorbic Acid 1,000 mg 05/04/20 15:30 05/23/20 08:25 Ascorbic Acid 500 Mg Tab PO 1,000 mg DAILY YESSI Administration Atorvastatin Calcium 40 mg 05/05/20 09:00 05/23/20 08:26 Atorvastatin 40 Mg Tab PO 40 mg DAILY YESSI Administration Baclofen 20 mg 05/04/20 21:00 05/23/20 22:15 Baclofen 10 Mg Tab PO 20 mg HS YESSI Administration Cholecalciferol 25 mcg 05/04/20 15:30 05/23/20 08:26 Cholecalciferol 25 Mcg (1000 Iu) Tablet PO 25 mcg DAILY YESSI Administration Cyanocobalamin 500 mcg 05/19/20 09:00 05/23/20 08:26 Cyanocobalamin 500 Mcg Tab PO 500 mcg DAILY YESSI Administration Escitalopram Oxalate 20 mg 05/05/20 09:00 05/23/20 08:26 Escitalopram 20 Mg Tab PO 20 mg DAILY YESSI Administration Ferrous Sulfate 325 mg 05/05/20 09:00 05/23/20 08:26 Ferrous Sulfate 325 Mg Tab PO 325 mg DAILY YESSI Administration Furosemide 40 mg 05/20/20 11:45 05/23/20 22:14 Furosemide 10 Mg/Ml 4 Ml Vial IV 40 mg Q12HR YESSI Administration Gabapentin 600 mg 05/04/20 18:00 05/23/20 22:15 Gabapentin 300 Mg Cap PO 600 mg QID YESSI Administration Glimepiride 4 mg 05/05/20 07:30 05/24/20 06:50 Glimepiride 4 Mg Tab PO 4 mg AC-BRKFST YESSI Administration Guaifenesin 200 mg 05/06/20 10:55 05/18/20 12:24 Guaifenesin Syrup 100mg/5ml 200 Mg/10 Ml Cup PO 200 mg Q6H PRN Administration Cough Hydrochlorothiazide 25 mg 05/24/20 09:00 Hydrochlorothiazide 25 Mg Tab PO DAILY YESSI Insulin Aspart 0 unit 05/04/20 17:30 05/24/20 06:49 Insulin Aspart (Novolog) 100 Unit/Ml Vial SQ 4 unit ACHS YESSI Administration Protocol Insulin Aspart 5 unit 05/05/20 07:30 05/24/20 06:49 Insulin Aspart (Novolog) 100 Unit/Ml Vial SQ 5 unit AC-TID YESSI Administration Insulin Detemir 20 unit 05/23/20 21:00 05/23/20 22:14 Insulin Detemir (Levemir) 100 Unit/Ml Syr SQ 20 unit HS YESSI Administration Levothyroxine Sodium 75 mcg 05/05/20 06:30 05/24/20 06:48 Levothyroxine 75 Mcg Tab PO 75 mcg DAILY@0630 YESSI Administration Lisinopril 10 mg 05/05/20 09:00 05/23/20 08:26 Lisinopril 10 Mg Tab PO 10 mg DAILY YESSI Administration Lorazepam 0.5 mg 05/07/20 11:33 05/07/20 12:50 Lorazepam 2 Mg/Ml Inj IV 0.5 mg Q4HR PRN Administration Anxiety Metformin HCl 500 mg 05/14/20 07:30 05/24/20 06:48 Metformin 500 Mg Tab PO 500 mg AC-TID YESSI Administration Methylprednisolone Sodium Succinate 60 mg 05/05/20 12:00 05/24/20 06:48 Methylprednisolone Sod Succi 125 Mg/2 Ml Vial IV 60 mg Q6HR YESSI Administration Miscellaneous Information 1 each 05/13/20 17:21 Potassium Replacement Protocol 1 Each Misc MISCELLANE DAILY PRN Per Protocol Protocol Naloxone HCl 0.2 mg 05/04/20 13:19 Naloxone 0.4 Mg/Ml 1 Ml Vial IV Q2M PRN Opioid Reversal Ondansetron HCl 4 mg 05/04/20 13:19 05/14/20 04:03 Ondansetron 4 Mg/2 Ml Vial IVP 4 mg Q8HR PRN Administration Nausea And Vomiting Pantoprazole Sodium 40 mg 05/16/20 17:30 05/24/20 06:48 Pantoprazole 40 Mg Tablet PO 40 mg AC-BID YESSI Administration Zinc Sulfate 220 mg 05/04/20 15:30 05/23/20 08:25 Zinc Sulfate 220 Mg Cap PO 220 mg DAILY YESSI Administration Intake and Output 05/23/20 05/24/20 05/24/20 22:59 06:59 14:59 Intake Total 300 Output Total 700 1000 Balance -400 -1000 Intake: Oral 300 Output: Urine 700 1000 Uretheral (Trevino) 700 Other: Voiding Method Indwelling Catheter Indwelling Catheter Weight 135 kg 05/23/20 08:44 05/22/20 08:40
[2020-05-24] MEDS ORDERED: hydroCHLOROthiazide 25 MG TAB PO SCH (09:00)
[2020-05-24 09:32] LABS: Anisocytosis Slight; Basophils % (A) 0 %; Eosinophils % (A) 0 %; HCT 37.7 % (34.0-46.0); HGB 12.8 gm/dL (11.4-16.0); Lymphocytes # (A) 0.2 k/uL (1.0-4.8); Lymphocytes % (A) 5 %; MCH 29.2 pg (25.0-35.0); MCHC 33.8 g/dL (31.0-37.0); MCV 86.2 fL (80.0-100.0); Mean Platelet Volume 9.1; Monocytes # (A) 0.1 k/uL (0-1.0); Monocytes % (A) 2 %; Neutrophils # (A) 3.7 k/uL (1.3-7.7); Neutrophils % (A) 92 %; RBC 4.38 m/uL (3.80-5.40); RDW 16.9 % (11.5-15.5)
[2020-05-24] MEDS: ZINC SULFATE 220 MG CAP PO SCH (09:38)
[2020-05-24] MEDS: lisinopriL 10 MG TAB PO SCH (09:38)
[2020-05-24] MEDS: GABAPENTIN 300 MG CAP PO SCH ×4 (09:38→20:44)
[2020-05-24] MEDS: ESCITALOPRAM 20 MG TAB PO SCH (09:38)
[2020-05-24] MEDS: ASCORBIC ACID 500 MG TAB PO SCH (09:38)
[2020-05-24] MEDS: allopurinoL 100 MG TAB PO SCH (09:38)
[2020-05-24] MEDS: FERROUS SULFATE 325 MG TAB PO SCH (09:38)
[2020-05-24] MEDS: ATORVASTATIN 40 MG TAB PO SCH (09:39)
[2020-05-24] MEDS: MAG HYDROX/AL HYDROX/SIMETH 30 ML CUP PO SCH ×4 (09:39→20:45)
[2020-05-24] MEDS: FUROSEMIDE 10 MG/ML 4 ML VIAL IV SCH ×2 (09:39→20:44)
[2020-05-24] MEDS: CHOLECALCIFEROL 25 MCG (1000 IU) TABLET PO SCH (09:39)
[2020-05-24] MEDS: CYANOCOBALAMIN 500 MCG TAB PO SCH (09:40)
[2020-05-24 09:54] LABS: Platelet Count 19 k/uL (150-450)
[2020-05-24 09:55] LABS: ALT 228 U/L (4-34); AST 89 U/L (14-36); African American GFR (CKD) >90 (>60 ml/min/1.73 sqM); Albumin 2.9 g/dL (3.5-5.0); Alkaline Phosphatase 227 U/L (38-126); Blood Urea Nitrogen 29 mg/dL (7-17); C Reactive Protein <5.0 mg/L (<10.0); Calcium 8.6 mg/dL (8.4-10.2); Chloride 85 mmol/L (98-107); Glucose 201 mg/dL (74-99); LDH 1541 U/L (313-618); Non-African American GFR(CKD) >90 (>60 ml/min/1.73 sqM); Potassium 3.7 mmol/L (3.5-5.1); Sodium 128 mmol/L (137-145); Total Bilirubin 1.7 mg/dL (0.2-1.3); Total Protein 5.3 g/dL (6.3-8.2)
[2020-05-24] MEDS: ACETAMINOPHEN TAB 500 MG TAB PO PRN ×2 (09:57→20:49)
[2020-05-24 09:59] LABS: Anion Gap 6 mmol/L; D-Dimer 0.76 mg/L FEU (<0.60); INR 1.1 (<1.2); Prothrombin Time 11.6 sec (9.0-12.0)
[2020-05-24 10:02] LABS: Carbon Dioxide 37 mmol/L (22-30)
[2020-05-24 10:12] LABS: Partial Thromboplastin Time 20.9 sec (22.0-30.0)
[2020-05-24 11:44] LABS: Glucose,Whole Blood 166 mg/dL (75-99)
--- NOTE | 2020-05-24 12:05 | P.PN ---
Subjective Progress Note Date: 05/24/20 Acute CoVID 19 pneumonia 79-year-old female patient, morbidly obese with a BMI of 47, was hospitalized for COVID 19 related pneumonia. The patient currently is hypoxic on 3 L of oxygen by nasal cannula. She has comorbidities including obesity with a BMI of 47, hypertension, diabetes mellitus and gout. She also has hyperlipidemia and hypothyroidism. The patient started getting symptoms approximately a week ago, on 04/28/2020 and the patient was diagnosed having Covid 19 infection for a primary care physician's office on 04/29.. She continued to have episodes of fever and subsequently she became progressively more short of breath necessitating emergency department visitation today and ultimately she was hospitalized. Her chest x-ray showing bilateral pulmonary infiltrates peripheral distribution more so on the right compared to the left. The patient was started on steroids.. She is slightly nauseated. She also has loss of taste and smell LDH level is currently at 802 with a CRP of 55 and she had a lactic acid level of 2.1 at the time of admission. There d-dimer is still pending for now. Her white cell count is at 1.4 and the patient is lymphopenic with a lymphocyte count of 0.6 and there is also a drop in her platelet count down to 80 and these are all manifestations of COVID 19 infection. On today's evaluation of 04/27/2020, the patient's oxygenation has gotten worse. I saw her in the emergency department yesterday and she was on 4 L. She progressively required higher oxygen flow and she went up to a high flow oxygen through the nasal cannula airvo which she feels a currently she is on a BiPAP at a pressure of 10/5 with an FiO2 of 100%. She is able to generate a tidal volume around 450-500. Respiratory rate is in the mid 30s low 40s. She feels well. She is in mild degree of respiratory distress. She is still able to converse and talk to her BiPAP mask. Her current pulse ox is 94%. 60 showing diffuse breath and pulmonary infiltrates consistent with Covid 19 related pneumonia. Her white cell count is still down at 1.2. Platelet count is at 70 now which is low. D-dimer is at 0.65, her LDH level is at 835 with a CRP of 56. She is on Decadron. I'm going to switch her to Solu-Medrol. She is currently taking REM should be considered for convalescent plasma and addition to Tocilizumab The patient is seen today 05/06/2020 in follow-up on the regular medical floor. She is currently sitting up in bed. Awake and alert in no acute distress. Currently on BiPAP 10/5 and 100% FiO2. Current saturation 88%. Chest x-ray reveals mild, medically. Residual bilateral airspace disease. Improving compared to previous. This is day #3 of Remdesivir. She received convalescent plasma 1, tocilizumab. D-dimer 0.84. C-reactive protein 2.8. LDH 459. She remains on Decadron, IV Solu-Medrol, vitamin supplements. Patient was reevaluated today on 05/09/2020, remains on BiPAP, she is on 100%, O2 sats is 94%. Surprisingly, the patient seems to be doing well in spite of her significant O2 requirement and BiPAP. Patient received REM, she also received convalescent plasma and ACTEMRA. And so far does not seem to be making that significant turnaround and significant clinical improvement. CBC and basic metabolic profile are normal except for WBC count is 2.0 today. Patient was reevaluated today on 05/10/2020, still requiring significant amount of FiO2, she remains on BiPAP at 90% FiO2, she is on IPAP of 10 and EPAP of 5, and O2 saturation remains marginal. Clinically however the patient feels better mikhail athing easier, and have d-dimer is not that significantly elevated but it is nonetheless abnormal. Hence I recommended a CT angiogram of the chest to be done today. Renal profile is normal. CBC continues to show leukopenia with WBC count of 2.0. Electrolytes are normal. Patient was reevaluated today on 05/11/2020, patient is basically about the same. Remains on BiPAP. Her FiO2 is still at 90%, and her O2 saturation is in the low 90s. Patient is on IPAP of 10 and EPAP of 5, seems to be very comfortable. CT angiogram of the chest yesterday showed bilateral interstitial infiltrates, no evidence of thromboembolic disease/pulmonary embolism. WBC count is 2.2 hemoglobin is 11.6. A left lites are normal renal profile is normal clinically the patient is fairly comfortable, however she is still requiring significant high FiO2. Reevaluated today on 05/12/2020, patient is feeling much better today, breathing a lot easier, she is now on 80% FiO2 remains on BiPAP with IPAP of 10 and EPAP of 5. But her FiO2 was cut down to 80%, and I will cut it down further to 70% and her O2 saturation seems to be significantly improved. Patient feels that she felt much better after the Lasix was given yesterday. I will recommend another dose of Lasix to be given today. Her CT angiogram of the chest yesterday questioned mild interstitial edema. However I felt it was all related to her underlying Covid 19 pneumonitis. Nonetheless Lasix was given, and clinically the patient felt better. Labs today were all reviewed she had WBC count of 2.3 hemoglobin 12.4 lites are normal renal profile remains normal. Progress note dated 05/13/2020. Currently, the patient remains on BiPAP, at 70%. She's feeling better today. She feels less short of breath. Her BiPAP settings are IPAP 10, and EPAP 5. I did tell the patient to move around when she is lying in bed. She should lie down on her right side, left side, supine, and if possible, try to prone herself. Current laboratory data includes a white count of 2, hemoglobin 11.7, hematocrit 35.2, platelet count 94,000. Sodium is 136, potassium 3.4, chlorides 101, CO2 33, anion gap 2, BUN [address], [address] angiogram on May 10 showed no evidence of pulmonary embolism, but did show moderately severe pulmonary interstitial edema/infiltrates. Progress note dated 05/14/2020. The patient remains on BiPAP at 70%. She feels much improved. Her IPAP of 10 and EPAP is fine. She's feeling much less short of breath. I did tell her to move around in bed, right side down, left side down, supine, and even on her stomach if she can. No new labs today to look at. No recent chest x-rays to evaluate either. Medications are appropriate at this time. CT angiogram from May 10 is reviewed. Progress note dated 05/15/2020. The patient remains on BiPAP, settings of IPAP 10, and EPAP of 5. She is on 70%. Her saturations are right around 90% or so. Despite that, the patient states that she is feeling much better. She has been moving around in bed. His been laying on her right side, left side, supine, even on her stomach at times. No new labs today other than a sodium of 137, potassium 4, chloride 98, CO2 34, anion gap 5, BUN 19, creatinine 0.67. The patient is seen today 05/16/2020 in follow-up on the selective care unit. She is currently resting fairly comfortably in bed. She is continued on BiPAP currently 10/5 and 70% FiO2. She is maintaining O2 saturations about 85-86%. Today she is feeling mostly tired and fatigued. Breathing is about the same. No better but no worse currently. She remains on IV Solu-Medrol, Lovenox, vitamin supplements. Blood glucose 146. The patient is seen today 05/17/2020 in follow-up on the selective care unit. She remains awake and alert in no acute distress. She is still requiring BiPAP support 10/5 and 80% FiO2 to maintain O2 saturations in the mid 80s. She's been afebrile. Hemodynamically stable. Chest x-ray reveals cardiomegaly, continued bilateral airspace disease, slightly worsened compared to previous. Sodium 133. Potassium 4.5. Creatinine 0.67. She remains on Lovenox, IV Solu-Medrol, vitamin supplements. The patient is seen today 05/19/2020 in follow-up on the selective care unit. She is currently sitting up at the bedside. Awake and alert in no acute distress. She is still on BiPAP 12/6 and 90% FiO2. White count 4.3. Hemoglobin 12.6. Platelet count dropped to 37,000. Lymphocytes 0.3. Sodium 133. Potassium 4.5. Creatinine 0.71. Remains on IV Solu-Medrol, vitamin supplements. Lovenox which will be held. 05/20/2020 the patient is being seen for a follow-up. The patient remains on BiPAP at a pressure of 12/6 with an FiO2 of 90%. Remains on IV Solu-Medrol. She is awake and alert. She denies having any significant shortness of breath. Hemodynamically stable. She had prolonged hospitalization due to complications of Covid 19. She is a morbidly obese female patient with a BMI of 49. She was initially on 3 L about 2 by nasal cannula. She is known to have diabetes, gout and hypertension and hyperlipidemia and hypothyroidism. The patient was diagnosed on 04/28/2020 and since then her condition progressively decompen sated. She was aggressively treated over the past 2 weeks here in the hospital and her blood work showing a component of thrombocytopenia, for that reason anticoagulation was held. The patient remains on IV Solu-Medrol. She is taking 60 mg IV every 6 hours. The last chest x-ray was done on May 17 the patient had bilateral lower lobe pulmonary infiltrates . Also, there is history drop in the platelet count which is down to 30. Her white second is at 2.5 with a hemoglobin of 11.7. Rest of the blood work essentially within normal limits. The latest chest x-ray was done on 05/09/2020. She is able to tolerate the BiPAP reasonably well. Her pulse ox is a mid 80s this morning. She is able to generate a tidal volume of IVC with a respiratory rate of 26 cm ventilation of 15. She is currently off Lovenox. She is not taking any antiplatelet agents. Levaquin is a 15 units a day along with 5 units with meals 3 times a day. She is also developing increased swelling in lower extremities On today's evaluation, the patient is being seen for follow-up for Covid 19 related pneumonia. The patient is still on BiPAP at a pressure of 12/6 with an FiO2 of 90%. Her pulse ox is around 91%. She is hemodynamically stable. The patient is morbidly obese and her current BMI is 49.7. Note that she progressively got worse and she end up on BiPAP therapy. She is on IV Solu Medrol 60 mg every 6 hours. Her chest x-ray showing some limited improvement from yesterday where the diaphragms were better visualized. She is able to tolerate the BiPAP well. On today's evaluation, the patient is generating a tidal volume of 750 and her current respiratory rate is in the order of 20-27. She had some increased swelling in lower extremity bilaterally and the patient was started on Lasix yesterday and the patient is a negative fluid balance of 750 mL over the past 24 hours. She is still has significant amount of edema and she remains on Lasix at a dose of 40 mg IV every 12 hours. Platelet count currently is down to 30. DIC profile was essentially negative. The inflammatory markers from yesterday were elevated. On 05/22/2020 currently the patient remains on BiPAP at a pressure of 12/6 with an FiO2 of 90%. Her saturations remained marginal. The patient is generating adequate tidal volumes of 570 on her machine. She was started on diuretics yesterday and the patient has been negative fluid balance of 2 L over the past 24 hours. She is awake and calm and comfortable. She wasn't having issues with thrombocytopenia. The platelet count today is 23. Hematology is going to evaluate the patient. The coagulation profile is within normal limits. LDH level is at 1590 with a CRP of less than 5. She is awake and alert. She is following commands and answering questions face is able to take sips of soup and oatmeal. She is resting comfortably in bed. She remains on IV Solu-Medrol. She is also on Lasix 40 mg IV every 12 hours. She is also on Levemir insulin 15 units along with a prescription coverage. No anticoagulation for now because of her underlying thrombocytopenia. On 05/23/2020 I'm seeing the patient for a follow-up. She is awake and alert. She still on a BiPAP at a pressure of 12/6 cm of water. She has also an FiO2 of 90%. Overall, she is awake and alert and she is following commands and answering questions. She remains in good spirits she is calm and comfortable. No new complaints pH remains on IV Solu-Medrol. She also on Lasix 40 mg every 12 hours. Her platelet counts are still low at 19,000. The patient was seen by hematology. The patient was given units of cryoprecipitate yesterday. In terms of her pulmonary status, the patient is stable. The patient is not having any signs of bleeding. She is unable to tolerate some oral intake. In terms of her inflammatory markers, the levels are still up with an LDH level of 161, CRP of less than 5. Her AHI the antibodies came back negative. Rest of the blood work is all within normal limits. I will see her condition essentially unchanged compared to yesterday. In terms of her blood sugar control, the patient is on Levemir insulin 15 units in addition to NovoLog 5 units with meals and a sliding scale coverage. No chest x-ray from today. Her last chest x-ray was from [facility]. 05/24/2020, the patient remains on BiPAP 12/6 with an FiO2 of 90%. She is on IV Solu-Medrol. Platelet counts remain unchanged at 19,000. Her blood work from today shows some mild transaminitis. LDH level is 1541, nor and the CRP level is less than 5, lower. The white cell count is at 4 with a hemoglobin of 12.8. No new complaints pH is able to communicate. She is tolerating diet. No nausea. No vomiting. No diarrhea. No abdominal pain. She is on Levemir insulin 20 units along with NovoLog 5 units with meals and a sliding scale coverage. Her current pulse ox is 88%. Unable to wean her off the BiPAP for now. Chest x-ray showing some limited improvement in aeration of the lungs bilaterally. On examination, she continues to have some crackles. She does have some underlying cardiomegaly on the chest x-ray and the lower lobe pulmonary infiltrates have slightly improved on the most recent chest x-ray was done today. Equipment Superintendent of the case regarding the thrombocytopenia. Cardiology is also on the case regarding hypertension. She is currently on a combination of lisinopril and hydrochlorothiazide. Objective - Vital Signs Vital signs: Vital Signs Temp 97.6 F 05/24/20 09:29 Pulse 77 05/24/20 09:29 Resp 24 05/24/20 09:29 BP 171/89 05/24/20 09:29 Pulse Ox 91 L 05/24/20 09:29 Intake & Output 05/23/20 05/24/20 05/24/20 18:59 06:59 18:59 Intake Total 1080 240 Output Total 1425 1000 Balance -345 -1000 240 Weight 135 kg Intake: Oral 1080 240 Output: Urine 1425 1000 Uretheral ([place]) 700 Other: Voiding Method Indwelling Catheter Indwelling Catheter Indwelling Catheter - Exam Gen. appearance morbidly obese and she is calm and comfortable lying acute respiratory distress, currently on and the patient is a bit short of breath, currently on a BiPAP at a pressure of 12/6 with an FiO2 of 90%. Head exam was generally normal. There was no scleral icterus or corneal arcus. Mucous membranes were moist. Neck was supple and without jugular venous distension, thyromegaly, or carotid bruits. Carotids were easily palpable bilaterally. There was no adenopathy. Lungs sounds are diminished the patient is crackles in the lung bases more so on the right Cardiac exam revealed the PMI to be normally situated and sized. The rhythm was regular and no extrasystoles were noted during several minutes of auscultation. The first and second heart sounds were normal and physiologic splitting of the second heart sound was noted. There were no murmurs, rubs, clicks, or gallops. Abdominal exam revealed normal bowel sounds. The abdomen was soft, non-tender, and without masses, organomegaly, or appreciable enlargement of the abdominal aorta. Examination of the extremities revealed easily palpable radial, femoral and pedal pulses. There was no cyanosis, clubbing or edema. Examination of the skin revealed no evidence of significant rashes, suspicious appearing nevi or other concerning lesions. Neurologically, the patient is awake and alert and the patient does not have any focal neurological deficit. Cranial nerves are essentially intact. - Labs CBC & Chem 7: 05/24/20 08:20 05/24/20 08:20 Labs: Abnormal Lab Results - Last 24 Hours (Table) 05/23/20 05/23/20 05/23/20 Range/Units 12:08 17:05 20:02 RDW (11.5-15.5) % Plt Count (150-450) k/uL Lymphocytes # (1.0-4.8) k/uL APTT (22.0-30.0) sec Fibrinogen (200-500) mg/dL D-Dimer (<0.60) mg/L FEU Sodium (137-145) mmol/L Chloride (98-107) mmol/L Carbon Dioxide (22-30) mmol/L BUN (7-17) mg/dL Glucose (74-99) mg/dL POC Glucose (mg/dL) 189 H 211 H 220 H (75-99) mg/dL Total Bilirubin (0.2-1.3) mg/dL AST (14-36) U/L ALT (4-34) U/L Alkaline Phosphatase (38-126) U/L Lactate Dehydrogenase (313-618) U/L Total Protein (6.3-8.2) g/dL Albumin (3.5-5.0) g/dL 05/24/20 05/24/20 05/24/20 Range/Units 06:22 08:20 08:20 RDW (11.5-15.5) % Plt Count (150-450) k/uL Lymphocytes # (1.0-4.8) k/uL APTT 20.9 L (22.0-30.0) sec Fibrinogen 147 L (200-500) mg/dL D-Dimer 0.76 H (<0.60) mg/L FEU Sodium 128 L (137-145) mmol/L Chloride 85 L (98-107) mmol/L Carbon Dioxide 37 H (22-30) mmol/L BUN 29 H (7-17) mg/dL Glucose 201 H (74-99) mg/dL POC Glucose (mg/dL) 218 H (75-99) mg/dL Total Bilirubin 1.7 H (0.2-1.3) mg/dL AST 89 H (14-36) U/L ALT 228 H (4-34) U/L Alkaline Phosphatase 227 H (38-126) U/L Lactate Dehydrogenase 1541 H (313-618) U/L Total Protein 5.3 L (6.3-8.2) g/dL Albumin 2.9 L (3.5-5.0) g/dL 05/24/20 05/24/20 Range/Units 08:20 11:38 RDW 16.9 H (11.5-15.5) % Plt Count 19 L* (150-450) k/uL Lymphocytes # 0.2 L (1.0-4.8) k/uL APTT (22.0-30.0) sec Fibrinogen (200-500) mg/dL D-Dimer (<0.60) mg/L FEU Sodium (137-145) mmol/L Chloride (98-107) mmol/L Carbon Dioxide (22-30) mmol/L BUN (7-17) mg/dL Glucose (74-99) mg/dL POC Glucose (mg/dL) 166 H (75-99) mg/dL Total Bilirubin (0.2-1.3) mg/dL AST (14-36) U/L ALT (4-34) U/L Alkaline Phosphatase (38-126) U/L Lactate Dehydrogenase (313-618) U/L Total Protein (6.3-8.2) g/dL Albumin (3.5-5.0) g/dL Assessment and Plan Plan: 1 Acute Covid 19 related pneumonia, symptoms started on 04/28/2020, diagnosed to be positive on 04/29/2020. She has completed Remdesivir, tocilizumab and convalescent plasma. The patient has been very slow to progress and the patient has required BiPAP throughout the past 2 weeks. The last chest x-ray still showing consolidation lung bases bilaterally repeat chest x-ray from today is undifferentiated. The findings are essentially the same and the patient remains ventilator dependent at the same settings of 12/6 with FiO2 of 90%. I would say her condition essentially unchanged. The pulse ox currently is at 91%. I do not think there is any room for weaning the FiO2 on today's evaluation. Inflammatory markers remain elevated. I'm a bit concerned of an underlying normal cytopenia. Platelet count is down to 19 2 Acute hypoxic respiratory failure secondary to above, currently on BiPAP 12/6 and 90% FiO2 3 Fever secondary to above , recovered 4 Leukopenia, lymphopenia and thrombocytopenia secondary to above, platelets down to 19k 5 Mild elevation of inflammatory markers secondary to Covid 19 infection 6 Obesity with a BMI of 49.0 7 Diabetes mellitus type 2 8 Hypertension 9 Hyperlipidemia 10 Hypothyroidism Plan Remains on IV Solumedrol ,vitamin supplements Repeat chest x-ray from today showing some improvement in lower lobe pulmonary infiltrates. Sodium is low and we are going to offer her some fluid restriction. Stop the chlorothiazide. DIC profile was was done and hematology thinks that there may be a low-grade DIC underlying Thrombocytopenia. She was given cryoprecipitate. HIT antibodies was negative Count is up to 19K , mythology is on the case. Lovenox to be held due to low platelet count Doppler of the lower extremities change the Lasix to 40 mg once a day Remains on BiPAP 12/6 and 90% FiO2 She has been slow to progress We'll continue to follow
--- NOTE | 2020-05-24 16:02 | P.PN ---
Subjective Progress Note Date: 05/24/20 [id number] female admitted with acute hypoxic respiratory failure secondary to covid- 19 pneumonia, hypertension, diabetes mellitus, obesity and multiple other medical issues. Oxygen requirements worsened, requiring BiPAP. Chest x-ray reporting bilateral interstitial and patchy airspace opacities remain ,mild cardiomegaly. Denies chest pain, palpitations, reports chest soreness from nonproductive cough. Received a dose of Actemra, maintained on Remdesevir, IV steroids , antibiotics and multivitamin supplements. Afebrile, LDH and C- reactive protein trending down. 05/07/2020 Maintained on Remdesevir/covid regimine. Continues to require BiPAP 100% to maintain O2 sats in the high 80s to 90s. Complains of anxiety regarding mask. Deep breaths trigger cough. Afebrile. Labs pending. Denies chest pain, palpitations. 05/08/2020 sitting up at side of bed, continues to require 100% BiPAP. Ma intained on Covid regimen including Remdesevir. T-max 99.1. Occasional nonproductive cough. Denies chest pain, 05/09/20 unable to tolerate BiPAP decreased to 90% with O2 sats decreased to 84%, currently back up on 100% BiPAP, maintaining O2 sats in the 90s on 100s. T-max 99.1, labs pending. Anxiety controlled. Maintained on Covid regimen, completed 5 doses of Remdesevir. Labs pending. 05/10/2020 maintaining O2 sats in the low 90s on 95% BiPAP. Continues on IV steroids, vitamin C, vitamin D, zinc. Afebrile. Reports less coughing. Denies chest pain, palpitations. 05/13/2020 patient feeling better, reports she has " turned the corner". Maintaining O2 sats in the 90s on BiPAP 70%. Minimal nonproductive cough. Denies chest pain, palpitations. Afebrile, Received Lasix yesterday, potassium 3.4.,creatinine 0.69. 05/14/2020 continues feeling better, maintaining O2 sats in the 90s on BiPAP 70%. Occasional nonproductive cough. Mild pedal edema. Denies chest pain, palpitations. 05/15/2020 maintaining O2 sats in the low 90s on 70% BiPAP. Received Lasix yesterday, less pedal edema, renal function stable. Breathing easier. Blood sugars controlled. 05/16/2020 maintaining O2 sats in the low 90s on nonrebreather and high flow airvo. Afebrile, sodium trending down, 123, creatinine 1.8. Continues to feel better and reporting less shortness of breath. 05/17/2020 80% BiPAP, maintaining O2 sats in the 90s. Reports last night she tolerated 15 minutes on 15 L high flow nasal cannula plus nonrebreather mask .Nonproductive cough. Less tired, reports more energy. Blood sugars controlled. Denies chest pain, palpitations. Afebrile. 05/20/2020 maintained on BiPAP 90%, maintaining O2 sats in the high 80s to low 90s. Hemoglobin 11.7, Platelets decreased to 30, currently off of Lovenox .Afebrile, WBC 2.9. Chest x-ray pending. 05/21/2020 continues on BiPAP 90% maintaining O2 sats in the high 80s. Reports that well, feels good. Afebrile. Yesterday's x-ray reported persistent low lung volumes, cardiomegaly, bilateral multifocal opacity is consistent with Covid 19 infectionno significant change. Doppler reported Bilateral lower extremities negative for DVT. Diuresing well on Lasix IV push with 24-hour I&O reflecting a negative fluid balance. BUN 25, creatinine 0.7. Hit antibodies pending. 05/22/2020 maintaining O2 sats of 87 to low 90s on 90% BiPAP. Diuresing well on Lasix IV push with 24-hour I&O reflecting a negative fluid balance. BUN 27/creatinine 0.73. Hemoglobin 13.5, platelets 23-anticoagulation remains on hold. Hematology consult in place, recommendations pending. Reports sleeping well with no shortness of breath. Afebrile, normal WBC. 05/23/2020 remains on same BiPAP settings of 90% maintaining O2 sats of 90. in October she was referred to hematology/Dr. Carrion further workup regarding pancytopenia. Bone marrow was completed and was told it was fine and that she had iron deficient anemia and needed to proceed with iron transfusions. Reports she did not have a chance to start the transfusions prior to being hospitalized with Covid. Platelets currently 19 without evidence of bleeding, no petechiae .evaluated by hematology yesterday with recommendations noted and appreciated. Received transfusion of cryoprecipitate with fibrinogen up to 158. 05/24/2020 continues on BiPAP 90% to maintain O2 sats in the high 80s to low 90s. Chest x-ray pending. Telemetry sinus rhythm. hypertensive this morning, hydrochlorothiazide added to med regimen. Labs pending. Good diet intake .Hyperglycemic, blood sugars ranging from 160s to 220. Objective - Vital Signs Vital signs: Vital Signs Temp 97.6 F 05/24/20 09:29 Pulse 77 05/24/20 12:00 Resp 24 05/24/20 12:00 BP 126/62 05/24/20 12:00 Pulse Ox 89 L 05/24/20 12:00 Intake & Output 05/23/20 05/24/20 05/24/20 18:59 06:59 18:59 Intake Total 1080 480 Output Total 1425 1000 Balance -345 -1000 480 Weight 135 kg Intake: Oral 1080 480 Output: Urine 1425 1000 Uretheral ([place]) 700 Other: Voiding Method Indwelling Catheter Indwelling Catheter Indwelling Catheter - Exam PHYSICAL EXAM: VITAL SIGNS: [As above] GENERAL: Alert and oriented 3, Sitting up in bed wearing BiPAP,NAD HEENT: Conjunctivae normal. eyes normal. CARDIOVASCULAR: S1, S2 regular.No murmur RESPIRATION: Diminished bases with bibasilar crackles ABDOMEN: Soft, nontender,nondistended.+BS, No guarding, no masses palpable. LEGS: no edema, no cyanosis, no clubbing. No calf pain. NERVOUS SYSTEM: Cranial N 2-12 grossly normal.No focal deficits. Skin: Warm and dry, no rash - Labs CBC & Chem 7: 05/24/20 08:20 05/24/20 08:20 Labs: Abnormal Lab Results - Last 24 Hours (Table) 05/23/20 05/23/20 05/24/20 Range/Units 17:05 20:02 06:22 RDW (11.5-15.5) % Plt Count (150-450) k/uL Lymphocytes # (1.0-4.8) k/uL APTT (22.0-30.0) sec Fibrinogen (200-500) mg/dL D-Dimer (<0.60) mg/L FEU Sodium (137-145) mmol/L Chloride (98-107) mmol/L Carbon Dioxide (22-30) mmol/L BUN (7-17) mg/dL Glucose (74-99) mg/dL POC Glucose (mg/dL) 211 H 220 H 218 H (75-99) mg/dL Total Bilirubin (0.2-1.3) mg/dL AST (14-36) U/L ALT (4-34) U/L Alkaline Phosphatase (38-126) U/L Lactate Dehydrogenase (313-618) U/L Total Protein (6.3-8.2) g/dL Albumin (3.5-5.0) g/dL 05/24/20 05/24/20 05/24/20 Range/Units 08:20 08:20 08:20 RDW 16.9 H (11.5-15.5) % Plt Count 19 L* (150-450) k/uL Lymphocytes # 0.2 L (1.0-4.8) k/uL APTT 20.9 L (22.0-30.0) sec Fibrinogen 147 L (200-500) mg/dL D-Dimer 0.76 H (<0.60) mg/L FEU Sodium 128 L (137-145) mmol/L Chloride 85 L (98-107) mmol/L Carbon Dioxide 37 H (22-30) mmol/L BUN 29 H (7-17) mg/dL Glucose 201 H (74-99) mg/dL POC Glucose (mg/dL) (75-99) mg/dL Total Bilirubin 1.7 H (0.2-1.3) mg/dL AST 89 H (14-36) U/L ALT 228 H (4-34) U/L Alkaline Phosphatase 227 H (38-126) U/L Lactate Dehydrogenase 1541 H (313-618) U/L Total Protein 5.3 L (6.3-8.2) g/dL Albumin 2.9 L (3.5-5.0) g/dL 05/24/20 Range/Units 11:38 RDW (11.5-15.5) % Plt Count (150-450) k/uL Lymphocytes # (1.0-4.8) k/uL APTT (22.0-30.0) sec Fibrinogen (200-500) mg/dL D-Dimer (<0.60) mg/L FEU Sodium (137-145) mmol/L Chloride (98-107) mmol/L Carbon Dioxide (22-30) mmol/L BUN (7-17) mg/dL Glucose (74-99) mg/dL POC Glucose (mg/dL) 166 H (75-99) mg/dL Total Bilirubin (0.2-1.3) mg/dL AST (14-36) U/L ALT (4-34) U/L Alkaline Phosphatase (38-126) U/L Lactate Dehydrogenase (313-618) U/L Total Protein (6.3-8.2) g/dL Albumin (3.5-5.0) g/dL Assessment and Plan Assessment: Sepsis, present on admission secondary to Acute Covid-19 pneumonia, status post convalescent plasma, received tocilizumab, completed Remdesevir Acute hypoxic respiratory failure secondary to the above,BiPAP dependent. Hyponatremia, hypovolemic, suspect diuretic induced Acute anxiety secondary to the above and BiPAP mask, improved leukopenia, lymphopenia and thrombocytopenia secondary to above. Low grade DIC as per hematology, status post cryoprecipitate Hit antibodies negative Diabetes mellitus type 2 Hypertension Hyperlipidemia Hypothyroidism Morbid obesity, BMI 47 Plan: Continue on current medication regimen, monitoring and symptomatic treatment. Chest x-ray and labs pending .HCTZ added for HTN. Cardiology consult in place with recommendations pending . COVID cocktail. Lovenox remains on hold related to thrombocytopenia.Close monitoring for bleeding with labs ordered for a.m. Levemir increased, close monitoring of Accu-Cheks. Prognosis guarded given multiple complex medical issues. The impression and plan of care has been dictated as directed. : I performed a history and examination of this patient, discussed the same with the dictator. I agree with the dictator's note ,documented as a scribe. Any additional findings or plans will be noted.
[2020-05-24 16:57] LABS: Glucose,Whole Blood 201 mg/dL (75-99)
[2020-05-24 20:31] LABS: Glucose,Whole Blood 222 mg/dL (75-99)
[2020-05-24] MEDS: BACLOFEN 10 MG TAB PO SCH (20:44)
[2020-05-24] MEDS: INSULIN DETEMIR (LEVEMIR) 100 UNIT/ML SYR SQ SCH (20:45)
--- NOTE | 2020-05-24 21:28 | P.PN ---
Subjective Progress Note Date: 05/24/20 Principal diagnosis: Sepsis, Respiratory failure, DIC Objective - Vital Signs Vital signs: Vital Signs Temp 98.2 F 05/24/20 16:00 Pulse 81 05/24/20 16:00 Resp 18 05/24/20 16:00 BP 103/55 05/24/20 16:00 Pulse Ox 88 L 05/24/20 16:00 Intake & Output 05/24/20 05/24/20 05/25/20 06:59 18:59 06:59 Intake Total 480 Output Total 1000 1300 Balance -1000 -820 Weight 135 kg Intake: Oral 480 Output: Urine 1000 1300 Uretheral ([place]) 700 1000 Other: Voiding Method Indwelling Catheter Indwelling Catheter - Exam - Constitutional General appearance: mild distress, morbidly obese - EENT Eyes: anicteric sclerae, EOMI ENT: hearing grossly normal - Respiratory Respiratory: bilateral: diminished - Cardiovascular Heart sounds: normal: S1, S2 leg Peripheral Edema: bilateral: Trace - Neurologic Neurologic: CNII-XII intact - Musculoskeletal Musculoskeletal: strength equal bilaterally - Psychiatric Psychiatric: A&O x's 3, appropriate affect, intact judgment & insight - Labs CBC & Chem 7: 05/24/20 08:20 05/24/20 08:20 Labs: Abnormal Lab Results - Last 24 Hours (Table) 05/23/20 05/24/20 05/24/20 Range/Units 20:02 06:22 08:20 RDW (11.5-15.5) % Plt Count (150-450) k/uL Lymphocytes # (1.0-4.8) k/uL APTT 20.9 L (22.0-30.0) sec Fibrinogen 147 L (200-500) mg/dL D-Dimer 0.76 H (<0.60) mg/L FEU Sodium (137-145) mmol/L Chloride (98-107) mmol/L Carbon Dioxide (22-30) mmol/L BUN (7-17) mg/dL Glucose (74-99) mg/dL POC Glucose (mg/dL) 220 H 218 H (75-99) mg/dL Total Bilirubin (0.2-1.3) mg/dL AST (14-36) U/L ALT (4-34) U/L Alkaline Phosphatase (38-126) U/L Lactate Dehydrogenase (313-618) U/L Total Protein (6.3-8.2) g/dL Albumin (3.5-5.0) g/dL 05/24/20 05/24/20 05/24/20 Range/Units 08:20 08:20 11:38 RDW 16.9 H (11.5-15.5) % Plt Count 19 L* (150-450) k/uL Lymphocytes # 0.2 L (1.0-4.8) k/uL APTT (22.0-30.0) sec Fibrinogen (200-500) mg/dL D-Dimer (<0.60) mg/L FEU Sodium 128 L (137-145) mmol/L Chloride 85 L (98-107) mmol/L Carbon Dioxide 37 H (22-30) mmol/L BUN 29 H (7-17) mg/dL Glucose 201 H (74-99) mg/dL POC Glucose (mg/dL) 166 H (75-99) mg/dL Total Bilirubin 1.7 H (0.2-1.3) mg/dL AST 89 H (14-36) U/L ALT 228 H (4-34) U/L Alkaline Phosphatase 227 H (38-126) U/L Lactate Dehydrogenase 1541 H (313-618) U/L Total Protein 5.3 L (6.3-8.2) g/dL Albumin 2.9 L (3.5-5.0) g/dL 05/24/20 Range/Units 16:44 RDW (11.5-15.5) % Plt Count (150-450) k/uL Lymphocytes # (1.0-4.8) k/uL APTT (22.0-30.0) sec Fibrinogen (200-500) mg/dL D-Dimer (<0.60) mg/L FEU Sodium (137-145) mmol/L Chloride (98-107) mmol/L Carbon Dioxide (22-30) mmol/L BUN (7-17) mg/dL Glucose (74-99) mg/dL POC Glucose (mg/dL) 201 H (75-99) mg/dL Total Bilirubin (0.2-1.3) mg/dL AST (14-36) U/L ALT (4-34) U/L Alkaline Phosphatase (38-126) U/L Lactate Dehydrogenase (313-618) U/L Total Protein (6.3-8.2) g/dL Albumin (3.5-5.0) g/dL Assessment and Plan Plan: - Imaging and Cardiology Chest x-ray: report reviewed Assessment and Plan DIC (disseminated intravascular coagulation) DIC 2/2 Covid/Sepsis infection. Monitor daily CBC, CMP, PT/PTT, Fibrinogen Maintain platelet count greater than 15K Cryoprecipitate Fibrinogen less than 100 FFP s/s bleeding and prolonged coags Coags were normal today Coronavirus infection - Per Pulmonology and ID - Best Supportive Care Acute Hypoxia Respiratory Failure Current Visit: Yes Status: Acute Code(s): R09.02 - HYPOXEMIA SNOMED Code(s): 413290880 Plan: HIT antibody negative. No aspirin, NSAIDs or anticoagulation for low platelet count. Physician Attest: I have completed the full history and physical and developed the above impression and plan, agree with dictation above, dictated as a scribe.
[2020-05-25] MEDS: methylPREDNISolone SOD SUCCI 125 MG/2 ML VIAL IV SCH ×2 (00:30→06:47)
[2020-05-25] MEDS: LORazepam 2 MG/ML INJ IV PRN (02:50)
[2020-05-25] MEDS: ACETAMINOPHEN TAB 500 MG TAB PO PRN ×3 (02:50→20:50)
[2020-05-25 06:14] LABS: Glucose,Whole Blood 202 mg/dL (75-99)
[2020-05-25] MEDS: GLIMEPIRIDE 4 MG TAB PO SCH (06:48)
[2020-05-25] MEDS: INSULIN ASPART (NovoLOG) 100 UNIT/ML VIAL SQ SCH ×7 (06:48→20:56)
[2020-05-25] MEDS: PANTOPRAZOLE 40 MG TABLET PO SCH ×2 (06:48→17:16)
[2020-05-25] MEDS: LEVOTHYROXINE 75 MCG TAB PO SCH (06:48)
[2020-05-25] MEDS: metFORMIN 500 MG TAB PO SCH ×3 (06:48→17:16)
[2020-05-25] MEDS: ATORVASTATIN 40 MG TAB PO SCH (08:31)
[2020-05-25] MEDS: GABAPENTIN 300 MG CAP PO SCH ×4 (08:31→20:50)
[2020-05-25] MEDS: FERROUS SULFATE 325 MG TAB PO SCH (08:31)
[2020-05-25] MEDS: ASCORBIC ACID 500 MG TAB PO SCH (08:31)
[2020-05-25] MEDS: CYANOCOBALAMIN 500 MCG TAB PO SCH (08:32)
[2020-05-25] MEDS: ESCITALOPRAM 20 MG TAB PO SCH (08:32)
[2020-05-25] MEDS: lisinopriL 10 MG TAB PO SCH (08:32)
[2020-05-25] MEDS: allopurinoL 100 MG TAB PO SCH (08:32)
[2020-05-25] MEDS: CHOLECALCIFEROL 25 MCG (1000 IU) TABLET PO SCH (08:32)
[2020-05-25] MEDS: MAG HYDROX/AL HYDROX/SIMETH 30 ML CUP PO SCH ×4 (08:33→20:51)
[2020-05-25] MEDS: ZINC SULFATE 220 MG CAP PO SCH (08:34)
[2020-05-25] MEDS ORDERED: FUROSEMIDE 10 MG/ML 4 ML VIAL IV SCH (09:00)
[2020-05-25 10:51] LABS: Anisocytosis Slight; Basophils % (A) 0 %; Eosinophils # (A) 0.1 k/uL (0-0.7); Eosinophils % (A) 2 %; HCT 38.1 % (34.0-46.0); HGB 13.3 gm/dL (11.4-16.0); Lymphocytes # (A) 0.2 k/uL (1.0-4.8); Lymphocytes % (A) 6 %; MCH 29.8 pg (25.0-35.0); MCHC 34.9 g/dL (31.0-37.0); MCV 85.6 fL (80.0-100.0); Mean Platelet Volume 10.3; Monocytes # (A) 0.1 k/uL (0-1.0); Monocytes % (A) 3 %; Neutrophils # (A) 3.6 k/uL (1.3-7.7); Neutrophils % (A) 89 %; RBC 4.45 m/uL (3.80-5.40); WBC 4.1 k/uL (3.8-10.6)
[2020-05-25 11:03] LABS: Platelet Count 18 k/uL (150-450)
[2020-05-25 11:04] LABS: ALT 234 U/L (4-34); AST 101 U/L (14-36); African American GFR (CKD) >90 (>60 ml/min/1.73 sqM); Alkaline Phosphatase 222 U/L (38-126); Blood Urea Nitrogen 38 mg/dL (7-17); Calcium 8.7 mg/dL (8.4-10.2); Chloride 84 mmol/L (98-107); Glucose 169 mg/dL (74-99); LDH 1438 U/L (313-618); Non-African American GFR(CKD) 80 (>60 ml/min/1.73 sqM); Potassium 3.5 mmol/L (3.5-5.1); Sodium 129 mmol/L (137-145); Total Bilirubin 1.7 mg/dL (0.2-1.3); Total Protein 5.4 g/dL (6.3-8.2)
[2020-05-25 11:10] LABS: Anion Gap 6 mmol/L
[2020-05-25 11:16] LABS: Carbon Dioxide 39 mmol/L (22-30)
[2020-05-25 11:27] LABS: Glucose,Whole Blood 163 mg/dL (75-99)
--- NOTE | 2020-05-25 11:28 | P.PN ---
Subjective Progress Note Date: 05/25/20 Acute CoVID 19 pneumonia 79-year-old female patient, morbidly obese with a BMI of 47, was hospitalized for COVID 19 related pneumonia. The patient currently is hypoxic on 3 L of oxygen by nasal cannula. She has comorbidities including obesity with a BMI of 47, hypertension, diabetes mellitus and gout. She also has hyperlipidemia and hypothyroidism. The patient started getting symptoms approximately a week ago, on 04/28/2020 and the patient was diagnosed having Covid 19 infection for a primary care physician's office on 04/29.. She continued to have episodes of fever and subsequently she became progressively more short of breath necessitating emergency department visitation today and ultimately she was hospitalized. Her chest x-ray showing bilateral pulmonary infiltrates peripheral distribution more so on the right compared to the left. The patient was started on steroids.. She is slightly nauseated. She also has loss of taste and smell LDH level is currently at 802 with a CRP of 55 and she had a lactic acid level of 2.1 at the time of admission. There d-dimer is still pending for now. Her white cell count is at 1.4 and the patient is lymphopenic with a lymphocyte count of 0.6 and there is also a drop in her platelet count down to 80 and these are all manifestations of COVID 19 infection. On today's evaluation of 04/27/2020, the patient's oxygenation has gotten worse. I saw her in the emergency department yesterday and she was on 4 L. She progressively required higher oxygen flow and she went up to a high flow oxygen through the nasal cannula airvo which she feels a currently she is on a BiPAP at a pressure of 10/5 with an FiO2 of 100%. She is able to generate a tidal volume around 450-500. Respiratory rate is in the mid 30s low 40s. She feels well. She is in mild degree of respiratory distress. She is still able to converse and talk to her BiPAP mask. Her current pulse ox is 94%. 60 showing diffuse breath and pulmonary infiltrates consistent with Covid 19 related pneumonia. Her white cell count is still down at 1.2. Platelet count is at 70 now which is low. D-dimer is at 0.65, her LDH level is at 835 with a CRP of 56. She is on Decadron. I'm going to switch her to Solu-Medrol. She is currently taking REM should be considered for convalescent plasma and addition to Tocilizumab The patient is seen today 05/06/2020 in follow-up on the regular medical floor. She is currently sitting up in bed. Awake and alert in no acute distress. Currently on BiPAP 10/5 and 100% FiO2. Current saturation 88%. Chest x-ray reveals mild, medically. Residual bilateral airspace disease. Improving compared to previous. This is day #3 of Remdesivir. She received convalescent plasma 1, tocilizumab. D-dimer 0.84. C-reactive protein 2.8. LDH 459. She remains on Decadron, IV Solu-Medrol, vitamin supplements. Patient was reevaluated today on 05/09/2020, remains on BiPAP, she is on 100%, O2 sats is 94%. Surprisingly, the patient seems to be doing well in spite of her significant O2 requirement and BiPAP. Patient received REM, she also received convalescent plasma and ACTEMRA. And so far does not seem to be making that significant turnaround and significant clinical improvement. CBC and basic metabolic profile are normal except for WBC count is 2.0 today. Patient was reevaluated today on 05/10/2020, still requiring significant amount of FiO2, she remains on BiPAP at 90% FiO2, she is on IPAP of 10 and EPAP of 5, and O2 saturation remains marginal. Clinically however the patient feels better mikhail athing easier, and have d-dimer is not that significantly elevated but it is nonetheless abnormal. Hence I recommended a CT angiogram of the chest to be done today. Renal profile is normal. CBC continues to show leukopenia with WBC count of 2.0. Electrolytes are normal. Patient was reevaluated today on 05/11/2020, patient is basically about the same. Remains on BiPAP. Her FiO2 is still at 90%, and her O2 saturation is in the low 90s. Patient is on IPAP of 10 and EPAP of 5, seems to be very comfortable. CT angiogram of the chest yesterday showed bilateral interstitial infiltrates, no evidence of thromboembolic disease/pulmonary embolism. WBC count is 2.2 hemoglobin is 11.6. A left lites are normal renal profile is normal clinically the patient is fairly comfortable, however she is still requiring significant high FiO2. Reevaluated today on 05/12/2020, patient is feeling much better today, breathing a lot easier, she is now on 80% FiO2 remains on BiPAP with IPAP of 10 and EPAP of 5. But her FiO2 was cut down to 80%, and I will cut it down further to 70% and her O2 saturation seems to be significantly improved. Patient feels that she felt much better after the Lasix was given yesterday. I will recommend another dose of Lasix to be given today. Her CT angiogram of the chest yesterday questioned mild interstitial edema. However I felt it was all related to her underlying Covid 19 pneumonitis. Nonetheless Lasix was given, and clinically the patient felt better. Labs today were all reviewed she had WBC count of 2.3 hemoglobin 12.4 lites are normal renal profile remains normal. Progress note dated 05/13/2020. Currently, the patient remains on BiPAP, at 70%. She's feeling better today. She feels less short of breath. Her BiPAP settings are IPAP 10, and EPAP 5. I did tell the patient to move around when she is lying in bed. She should lie down on her right side, left side, supine, and if possible, try to prone herself. Current laboratory data includes a white count of 2, hemoglobin 11.7, hematocrit 35.2, platelet count 94,000. Sodium is 136, potassium 3.4, chlorides 101, CO2 33, anion gap 2, BUN [address], [address] angiogram on May 10 showed no evidence of pulmonary embolism, but did show moderately severe pulmonary interstitial edema/infiltrates. Progress note dated 05/14/2020. The patient remains on BiPAP at 70%. She feels much improved. Her IPAP of 10 and EPAP is fine. She's feeling much less short of breath. I did tell her to move around in bed, right side down, left side down, supine, and even on her stomach if she can. No new labs today to look at. No recent chest x-rays to evaluate either. Medications are appropriate at this time. CT angiogram from May 10 is reviewed. Progress note dated 05/15/2020. The patient remains on BiPAP, settings of IPAP 10, and EPAP of 5. She is on 70%. Her saturations are right around 90% or so. Despite that, the patient states that she is feeling much better. She has been moving around in bed. His been laying on her right side, left side, supine, even on her stomach at times. No new labs today other than a sodium of 137, potassium 4, chloride 98, CO2 34, anion gap 5, BUN 19, creatinine 0.67. The patient is seen today 05/16/2020 in follow-up on the selective care unit. She is currently resting fairly comfortably in bed. She is continued on BiPAP currently 10/5 and 70% FiO2. She is maintaining O2 saturations about 85-86%. Today she is feeling mostly tired and fatigued. Breathing is about the same. No better but no worse currently. She remains on IV Solu-Medrol, Lovenox, vitamin supplements. Blood glucose 146. The patient is seen today 05/17/2020 in follow-up on the selective care unit. She remains awake and alert in no acute distress. She is still requiring BiPAP support 10/5 and 80% FiO2 to maintain O2 saturations in the mid 80s. She's been afebrile. Hemodynamically stable. Chest x-ray reveals cardiomegaly, continued bilateral airspace disease, slightly worsened compared to previous. Sodium 133. Potassium 4.5. Creatinine 0.67. She remains on Lovenox, IV Solu-Medrol, vitamin supplements. The patient is seen today 05/19/2020 in follow-up on the selective care unit. She is currently sitting up at the bedside. Awake and alert in no acute distress. She is still on BiPAP 12/6 and 90% FiO2. White count 4.3. Hemoglobin 12.6. Platelet count dropped to 37,000. Lymphocytes 0.3. Sodium 133. Potassium 4.5. Creatinine 0.71. Remains on IV Solu-Medrol, vitamin supplements. Lovenox which will be held. 05/20/2020 the patient is being seen for a follow-up. The patient remains on BiPAP at a pressure of 12/6 with an FiO2 of 90%. Remains on IV Solu-Medrol. She is awake and alert. She denies having any significant shortness of breath. Hemodynamically stable. She had prolonged hospitalization due to complications of Covid 19. She is a morbidly obese female patient with a BMI of 49. She was initially on 3 L about 2 by nasal cannula. She is known to have diabetes, gout and hypertension and hyperlipidemia and hypothyroidism. The patient was diagnosed on 04/28/2020 and since then her condition progressively decompen sated. She was aggressively treated over the past 2 weeks here in the hospital and her blood work showing a component of thrombocytopenia, for that reason anticoagulation was held. The patient remains on IV Solu-Medrol. She is taking 60 mg IV every 6 hours. The last chest x-ray was done on May 17 the patient had bilateral lower lobe pulmonary infiltrates . Also, there is history drop in the platelet count which is down to 30. Her white second is at 2.5 with a hemoglobin of 11.7. Rest of the blood work essentially within normal limits. The latest chest x-ray was done on 05/09/2020. She is able to tolerate the BiPAP reasonably well. Her pulse ox is a mid 80s this morning. She is able to generate a tidal volume of IVC with a respiratory rate of 26 cm ventilation of 15. She is currently off Lovenox. She is not taking any antiplatelet agents. Levaquin is a 15 units a day along with 5 units with meals 3 times a day. She is also developing increased swelling in lower extremities On today's evaluation, the patient is being seen for follow-up for Covid 19 related pneumonia. The patient is still on BiPAP at a pressure of 12/6 with an FiO2 of 90%. Her pulse ox is around 91%. She is hemodynamically stable. The patient is morbidly obese and her current BMI is 49.7. Note that she progressively got worse and she end up on BiPAP therapy. She is on IV Solu Medrol 60 mg every 6 hours. Her chest x-ray showing some limited improvement from yesterday where the diaphragms were better visualized. She is able to tolerate the BiPAP well. On today's evaluation, the patient is generating a tidal volume of 750 and her current respiratory rate is in the order of 20-27. She had some increased swelling in lower extremity bilaterally and the patient was started on Lasix yesterday and the patient is a negative fluid balance of 750 mL over the past 24 hours. She is still has significant amount of edema and she remains on Lasix at a dose of 40 mg IV every 12 hours. Platelet count currently is down to 30. DIC profile was essentially negative. The inflammatory markers from yesterday were elevated. On 05/22/2020 currently the patient remains on BiPAP at a pressure of 12/6 with an FiO2 of 90%. Her saturations remained marginal. The patient is generating adequate tidal volumes of 570 on her machine. She was started on diuretics yesterday and the patient has been negative fluid balance of 2 L over the past 24 hours. She is awake and calm and comfortable. She wasn't having issues with thrombocytopenia. The platelet count today is 23. Hematology is going to evaluate the patient. The coagulation profile is within normal limits. LDH level is at 1590 with a CRP of less than 5. She is awake and alert. She is following commands and answering questions face is able to take sips of soup and oatmeal. She is resting comfortably in bed. She remains on IV Solu-Medrol. She is also on Lasix 40 mg IV every 12 hours. She is also on Levemir insulin 15 units along with a prescription coverage. No anticoagulation for now because of her underlying thrombocytopenia. On 05/23/2020 I'm seeing the patient for a follow-up. She is awake and alert. She still on a BiPAP at a pressure of 12/6 cm of water. She has also an FiO2 of 90%. Overall, she is awake and alert and she is following commands and answering questions. She remains in good spirits she is calm and comfortable. No new complaints pH remains on IV Solu-Medrol. She also on Lasix 40 mg every 12 hours. Her platelet counts are still low at 19,000. The patient was seen by hematology. The patient was given units of cryoprecipitate yesterday. In terms of her pulmonary status, the patient is stable. The patient is not having any signs of bleeding. She is unable to tolerate some oral intake. In terms of her inflammatory markers, the levels are still up with an LDH level of 161, CRP of less than 5. Her AHI the antibodies came back negative. Rest of the blood work is all within normal limits. I will see her condition essentially unchanged compared to yesterday. In terms of her blood sugar control, the patient is on Levemir insulin 15 units in addition to NovoLog 5 units with meals and a sliding scale coverage. No chest x-ray from today. Her last chest x-ray was from [facility]. 05/24/2020, the patient remains on BiPAP 12/6 with an FiO2 of 90%. She is on IV Solu-Medrol. Platelet counts remain unchanged at 19,000. Her blood work from today shows some mild transaminitis. LDH level is 1541, nor and the CRP level is less than 5, lower. The white cell count is at 4 with a hemoglobin of 12.8. No new complaints pH is able to communicate. She is tolerating diet. No nausea. No vomiting. No diarrhea. No abdominal pain. She is on Levemir insulin 20 units along with NovoLog 5 units with meals and a sliding scale coverage. Her current pulse ox is 88%. Unable to wean her off the BiPAP for now. Chest x-ray showing some limited improvement in aeration of the lungs bilaterally. On examination, she continues to have some crackles. She does have some underlying cardiomegaly on the chest x-ray and the lower lobe pulmonary infiltrates have slightly improved on the most recent chest x-ray was done today. Weather Reporter of the case regarding the thrombocytopenia. Cardiology is also on the case regarding hypertension. She is currently on a combination of lisinopril and hydrochlorothiazide. 05/25/2020 the patient remains on 12/6 BiPAP with an FiO2 of 90%. She remains BiPAP dependent and her current pulse ox is around 90% and she is unable to wean off her FiO2. No significant tachypnea. Her respiratory rate currently is at mid 20s and her tidal volumes above 450. She is having some discomfort in her chest probably related to some heartburn. Oral intake is minimal and the patient is basically taking shakes and soft diet. Her platelet count today is down to 18. Hematology is monitoring this and the recommendations is to transfuse this patient with platelets under 15 K and some cryoprecipitate once the fibrinogen under 100.. The patient is not having any bleeding complications for now. On her blood work, she has a sodium of 129 and the renal function is stable. Her LFTs are still abnormal and she has some mild chest and pneumonit is. LDH is 1438 and the CRP level is less than 5. D-dimer from yesterday was 0.7. No recent chest x-ray from today. The chest x-ray from yesterday was showing bilateral pulmonary infiltrates more so in the lung bases more so on the left. As far as treatment, she remains on IV Solu-Medrol 60 mg every 6 hours and she is also on Lasix 40 mg on a daily basis to maintain her fluid balance. Objective - Vital Signs Vital signs: Vital Signs Temp 96.9 F L 05/25/20 11:16 Pulse 80 05/25/20 11:16 Resp 22 05/25/20 11:16 BP 140/67 05/25/20 11:16 Pulse Ox 90 L 05/25/20 11:16 Intake & Output 05/24/20 05/25/20 05/25/20 18:59 06:59 18:59 Intake Total 480 480 Output Total 1300 1300 Balance -820 -820 Weight 130 kg Intake: Oral 480 480 Output: Urine 1300 1300 Uretheral ([place]) 1000 Other: Voiding Method Indwelling Catheter Indwelling Catheter Indwelling Catheter - Exam Gen. appearance morbidly obese and she is calm and comfortable lying acute respiratory distress, currently on and the patient is a bit short of breath, currently on a BiPAP at a pressure of 12/6 with an FiO2 of 90%. Head exam was generally normal. There was no scleral icterus or corneal arcus. Mucous membranes were moist. Neck was supple and without jugular venous distension, thyromegaly, or carotid bruits. Carotids were easily palpable bilaterally. There was no adenopathy. Lungs sounds are diminished the patient is crackles in the lung bases more so on the right Cardiac exam revealed the PMI to be normally situated and sized. The rhythm was regular and no extrasystoles were noted during several minutes of auscultation. The first and second heart sounds were normal and physiologic splitting of the second heart sound was noted. There were no murmurs, rubs, clicks, or gallops. Abdominal exam revealed normal bowel sounds. The abdomen was soft, non-tender, and without masses, organomegaly, or appreciable enlargement of the abdominal aorta. Examination of the extremities revealed easily palpable radial, femoral and pedal pulses. There was no cyanosis, clubbing or edema. Examination of the skin revealed no evidence of significant rashes, suspicious appearing nevi or other concerning lesions. Neurologically, the patient is awake and alert and the patient does not have any focal neurological deficit. Cranial nerves are essentially intact. - Labs CBC & Chem 7: 05/25/20 10:36 05/25/20 10:36 Labs: Abnormal Lab Results - Last 24 Hours (Table) 05/24/20 05/24/20 05/24/20 Range/Units 11:38 16:44 20:30 RDW (11.5-15.5) % Plt Count (150-450) k/uL Lymphocytes # (1.0-4.8) k/uL Sodium (137-145) mmol/L Chloride (98-107) mmol/L Carbon Dioxide (22-30) mmol/L BUN (7-17) mg/dL Glucose (74-99) mg/dL POC Glucose (mg/dL) 166 H 201 H 222 H (75-99) mg/dL Total Bilirubin (0.2-1.3) mg/dL AST (14-36) U/L ALT (4-34) U/L Alkaline Phosphatase (38-126) U/L Lactate Dehydrogenase (313-618) U/L Total Protein (6.3-8.2) g/dL Albumin (3.5-5.0) g/dL 05/25/20 05/25/20 05/25/20 Range/Units 06:12 10:36 10:36 RDW 17.0 H (11.5-15.5) % Plt Count 18 L* (150-450) k/uL Lymphocytes # 0.2 L (1.0-4.8) k/uL Sodium 129 L (137-145) mmol/L Chloride 84 L (98-107) mmol/L Carbon Dioxide 39 H (22-30) mmol/L BUN 38 H (7-17) mg/dL Glucose 169 H (74-99) mg/dL POC Glucose (mg/dL) 202 H (75-99) mg/dL Total Bilirubin 1.7 H (0.2-1.3) mg/dL AST 101 H (14-36) U/L ALT 234 H (4-34) U/L Alkaline Phosphatase 222 H (38-126) U/L Lactate Dehydrogenase 1438 H (313-618) U/L Total Protein 5.4 L (6.3-8.2) g/dL Albumin 3.0 L (3.5-5.0) g/dL Assessment and Plan Plan: 1 Acute Covid 19 related pneumonia, symptoms started on 04/28/2020, diagnosed to be positive on 04/29/2020. She has completed Remdesivir, tocilizumab and con valescent plasma. The patient has been very slow to progress and the patient has required BiPAP throughout the past 2 weeks. Chest x-ray remains unchanged from yesterday with infiltrates in lung bases more so on the left. The patient remains BiPAP dependent at the same settings of 12/6 with FiO2 of 90%. I would say her condition essentially unchanged. She remains on IV Solu- Medrol. No anticoagulants for now. 2 Acute hypoxic respiratory failure secondary to above, currently on BiPAP 12/6 and 90% FiO2 3 Fever secondary to above , recovered 4 Leukopenia, lymphopenia and thrombocytopenia secondary to above, platelets down to 19k, consider a underlying DIC 5 Mild elevation of inflammatory markers secondary to Covid 19 infection 6 Obesity with a BMI of 49.0 7 Diabetes mellitus type 2 8 Hypertension 9 Hyperlipidemia 10 Hypothyroidism Plan Remains on IV Solumedrol and the dose Will be reduced to 40 mg every 12 hours vitamin supplements Lasix today will be discontinued DIC profile was was done and hematology thinks that there may be a low-grade DIC underlying Thrombocytopenia. She was given cryoprecipitate. HIT antibodies was negative Count is up to 18K , mythology is on the case. Lovenox to be held due to low platelet count Doppler of the lower extremities change the Lasix to 40 mg once a day Remains on BiPAP 12/6 and 90% FiO2 She has been slow to progress We'll continue to follow
[2020-05-25 11:40] LABS: D-Dimer 0.52 mg/L FEU (<0.60); INR 1.1 (<1.2); Prothrombin Time 11.7 sec (9.0-12.0)
[2020-05-25 11:46] LABS: Partial Thromboplastin Time 20.6 sec (22.0-30.0)
--- NOTE | 2020-05-25 13:59 | XR ---
EXAMINATION TYPE: XR chest 1V portable DATE OF EXAM: 05/25/2020 CLINICAL HISTORY: Difficulty breathing and covid progress study. TECHNIQUE: Single AP portable upright view of the chest is obtained. COMPARISON: Chest x-ray from one day earlier and older studies. FINDINGS: Persistent low lung volumes with bilateral multifocal increased reticular opacities. More dense consolidation left lung base redemonstrated. Stable mild cardiomegaly. Osseous structures are i ntact. Cholecystectomy clips are noted. IMPRESSION: Persistent low lung volumes and mild cardiomegaly with bilateral multifocal increased ret icular opacities consistent with covid-19 infection. No significant change from most recent x-ray one day earlier.
[2020-05-25] MEDS: SENNOSIDES-DOCUSATE SODIUM 1 EACH TAB PO SCH (15:09)
[2020-05-25] MEDS ORDERED: methylPREDNISolone SOD SUCCI 125 MG/2 ML VIAL IV SCH (16:00)
[2020-05-25 16:55] LABS: Glucose,Whole Blood 167 mg/dL (75-99)
[2020-05-25] MEDS: BACLOFEN 10 MG TAB PO SCH (20:50)
[2020-05-25] MEDS: methylPREDNISolone SOD SUCCI 40 MG/ML 1 ML VIAL IV SCH (20:51)
[2020-05-25] MEDS: INSULIN DETEMIR (LEVEMIR) 100 UNIT/ML SYR SQ SCH (20:56)
[2020-05-25 21:10] LABS: Glucose,Whole Blood 104 mg/dL (75-99)
--- NOTE | 2020-05-25 21:49 | P.PN ---
Subjective Progress Note Date: 05/25/20 Principal diagnosis: COVID pneumonia Hypoxic respiratory failure DIC Plt 18 today. Objective - Vital Signs Vital signs: Vital Signs Temp 97.9 F 05/25/20 20:00 Pulse 80 05/25/20 20:00 Resp 23 05/25/20 20:00 BP 122/58 05/25/20 20:00 Pulse Ox 91 L 05/25/20 20:00 Intake & Output 05/25/20 05/25/20 05/26/20 06:59 18:59 06:59 Intake Total 480 940 480 Output Total 1300 Balance -820 940 480 Weight 130 kg Intake: Oral 480 940 480 Output: Urine 1300 Other: Voiding Method Indwelling Catheter Indwelling Catheter Indwelling Catheter - Exam Due to concerns of COVID-19 detection/exposure and in an effort to limit health care provider exposure and transmission, parts of the encounter may have been obtained through chart review, family members, telephone/video visits, and/or discussion with primary team/nursing and ancillary staff. - Labs CBC & Chem 7: 05/25/20 10:36 05/25/20 10:36 Labs: Abnormal Lab Results - Last 24 Hours (Table) 05/25/20 05/25/20 05/25/20 Range/Units 06:12 10:36 10:36 RDW 17.0 H (11.5-15.5) % Plt Count 18 L* (150-450) k/uL Lymphocytes # 0.2 L (1.0-4.8) k/uL APTT 20.6 L (22.0-30.0) sec Fibrinogen 179 L (200-500) mg/dL Sodium (137-145) mmol/L Chloride (98-107) mmol/L Carbon Dioxide (22-30) mmol/L BUN (7-17) mg/dL Glucose (74-99) mg/dL POC Glucose (mg/dL) 202 H (75-99) mg/dL Total Bilirubin (0.2-1.3) mg/dL AST (14-36) U/L ALT (4-34) U/L Alkaline Phosphatase (38-126) U/L Lactate Dehydrogenase (313-618) U/L Total Protein (6.3-8.2) g/dL Albumin (3.5-5.0) g/dL 0405/25/20 05/25/20 Range/Units 10:36 11:26 16:52 RDW (11.5-15.5) % Plt Count (150-450) k/uL Lymphocytes # (1.0-4.8) k/uL APTT (22.0-30.0) sec Fibrinogen (200-500) mg/dL Sodium 129 L (137-145) mmol/L Chloride 84 L (98-107) mmol/L Carbon Dioxide 39 H (22-30) mmol/L BUN 38 H (7-17) mg/dL Glucose 169 H (74-99) mg/dL POC Glucose (mg/dL) 163 H 167 H (75-99) mg/dL Total Bilirubin 1.7 H (0.2-1.3) mg/dL AST 101 H (14-36) U/L ALT 234 H (4-34) U/L Alkaline Phosphatase 222 H (38-126) U/L Lactate Dehydrogenase 1438 H (313-618) U/L Total Protein 5.4 L (6.3-8.2) g/dL Albumin 3.0 L (3.5-5.0) g/dL 05/25/20 Range/Units 20:55 RDW (11.5-15.5) % Plt Count (150-450) k/uL Lymphocytes # (1.0-4.8) k/uL APTT (22.0-30.0) sec Fibrinogen (200-500) mg/dL Sodium (137-145) mmol/L Chloride (98-107) mmol/L Carbon Dioxide (22-30) mmol/L BUN (7-17) mg/dL Glucose (74-99) mg/dL POC Glucose (mg/dL) 104 H (75-99) mg/dL Total Bilirubin (0.2-1.3) mg/dL AST (14-36) U/L ALT (4-34) U/L Alkaline Phosphatase (38-126) U/L Lactate Dehydrogenase (313-618) U/L Total Protein (6.3-8.2) g/dL Albumin (3.5-5.0) g/dL Assessment and Plan Assessment: 1. COVID pneumonia 2. Hypoxic respiratory failure 3. DIC 4. Thrombocytopenia Plan: Ms. Balderas is a 59 yo female here for COVID pneumonia and hypoxic respiratory failure, course complicated by DIC with thrombocytopenia. Continue supportive care with daily CBC, CMP, PT/PTT, and fibrinogen. Plt transfuion for plt <15, and cryoprecipitate for fibrinogen <100. No need for plt or cryo today. Will continue to follow pt with you. Due to concerns of COVID-19 detection/exposure and in an effort to limit health care provider exposure and transmission, parts of the encounter may have been ob tained through chart review, family members, telephone/video visits, and/or discussion with primary team/nursing and ancillary staff.
--- NOTE | 2020-05-26 05:13 | P.PN ---
Subjective Progress Note Date: 05/26/20 Principal diagnosis: COVID pneumonia Hypoxic respiratory failure DIC Awaiting labs from today. Remains on BiPAP. Afebrile. Objective - Vital Signs Vital signs: Vital Signs Temp 97.6 F 05/26/20 04:00 Pulse 77 05/26/20 04:00 Resp 18 05/26/20 04:00 BP 104/58 05/26/20 04:00 Pulse Ox 90 L 05/26/20 04:00 Intake & Output 05/25/20 05/25/20 05/26/20 06:59 18:59 06:59 Intake Total 480 940 730 Output Total 1300 800 Balance -820 940 -70 Weight 130 kg Intake: Oral 480 940 730 Output: Urine 1300 800 Uretheral ([place]) 800 Other: Voiding Method Indwelling Catheter Indwelling Catheter Indwelling Catheter - Exam Due to concerns of COVID-19 detection/exposure and in an effort to limit health care provider exposure and transmission, parts of the encounter may have been obtained through chart review, family members, telephone/video visits, and/or discussion with primary team/nursing and ancillary staff. - Labs CBC & Chem 7: 05/25/20 10:36 05/25/20 10:36 Labs: Abnormal Lab Results - Last 24 Hours (Table) 05/25/20 05/25/20 05/25/20 Range/Units 06:12 10:36 10:36 RDW 17.0 H (11.5-15.5) % Plt Count 18 L* (150-450) k/uL Lymphocytes # 0.2 L (1.0-4.8) k/uL APTT 20.6 L (22.0-30.0) sec Fibrinogen 179 L (200-500) mg/dL Sodium (137-145) mmol/L Chloride (98-107) mmol/L Carbon Dioxide (22-30) mmol/L BUN (7-17) mg/dL Glucose (74-99) mg/dL POC Glucose (mg/dL) 202 H (75-99) mg/dL Total Bilirubin (0.2-1.3) mg/dL AST (14-36) U/L ALT (4-34) U/L Alkaline Phosphatase (38-126) U/L Lactate Dehydrogenase (313-618) U/L Total Protein (6.3-8.2) g/dL Albumin (3.5-5.0) g/dL 05/25/20 05/25/20 05/25/20 Range/Units 10:36 11:26 16:52 RDW (11.5-15.5) % Plt Count (150-450) k/uL Lymphocytes # (1.0-4.8) k/uL APTT (22.0-30.0) sec Fibrinogen (200-500) mg/dL Sodium 129 L (137-145) mmol/L Chloride 84 L (98-107) mmol/L Carbon Dioxide 39 H (22-30) mmol/L BUN 38 H (7-17) mg/dL Glucose 169 H (74-99) mg/dL POC Glucose (mg/dL) 163 H 167 H (75-99) mg/dL Total Bilirubin 1.7 H (0.2-1.3) mg/dL AST 101 H (14-36) U/L ALT 234 H (4-34) U/L Alkaline Phosphatase 222 H (38-126) U/L Lactate Dehydrogenase 1438 H (313-618) U/L Total Protein 5.4 L (6.3-8.2) g/dL Albumin 3.0 L (3.5-5.0) g/dL 05/25/20 Range/Units 20:55 RDW (11.5-15.5) % Plt Count (150-450) k/uL Lymphocytes # (1.0-4.8) k/uL APTT (22.0-30.0) sec Fibrinogen (200-500) mg/dL Sodium (137-145) mmol/L Chloride (98-107) mmol/L Carbon Dioxide (22-30) mmol/L BUN (7-17) mg/dL Glucose (74-99) mg/dL POC Glucose (mg/dL) 104 H (75-99) mg/dL Total Bilirubin (0.2-1.3) mg/dL AST (14-36) U/L ALT (4-34) U/L Alkaline Phosphatase (38-126) U/L Lactate Dehydrogenase (313-618) U/L Total Protein (6.3-8.2) g/dL Albumin (3.5-5.0) g/dL Assessment and Plan Assessment: 1. COVID pneumonia 2. Hypoxic respiratory failure 3. DIC 4. Thrombocytopenia Plan: Ms. Balderas is a 59 yo female here for COVID pneumonia and hypoxic respiratory failure, course complicated by DIC with thrombocytopenia. Continue supportive care with daily CBC, CMP, PT/PTT, and fibrinogen. Plt transfuion for plt <15, and cryoprecipitate for fibrinogen <100. Will continue to follow pt with you. Due to concerns of COVID-19 detection/exposure and in an effort to limit health care provider exposure and transmission, parts of the encounter may have been obtained through chart review, family members, telephone/video visits, and/or discussion with primary team/nursing and ancillary staff.
[2020-05-26 06:29] LABS: Glucose,Whole Blood 168 mg/dL (75-99)
[2020-05-26] MEDS: metFORMIN 500 MG TAB PO SCH ×3 (06:40→17:12)
[2020-05-26] MEDS: LEVOTHYROXINE 75 MCG TAB PO SCH (06:40)
[2020-05-26] MEDS: GLIMEPIRIDE 4 MG TAB PO SCH (06:40)
[2020-05-26] MEDS: PANTOPRAZOLE 40 MG TABLET PO SCH ×2 (06:40→17:12)
[2020-05-26] MEDS: INSULIN ASPART (NovoLOG) 100 UNIT/ML VIAL SQ SCH ×7 (06:41→20:59)
--- NOTE | 2020-05-26 07:14 | XR ---
EXAMINATION TYPE: XR chest 1V portable DATE OF EXAM: 05/26/2020 CLINICAL HISTORY: Difficulty breathing progress study. TECHNIQUE: Single AP portable upright view of the chest is obtained. COMPARISON: Chest x-ray from one day earlier and older studies. FINDINGS: Persistent low lung volumes with left greater than right bilateral mid to lower lung multi focal and confluent increased reticular opacities. Heart size stable and upper limits of normal. Unde rlying scoliotic curvature positioning. Cholecystectomy clips are redemonstrated. IMPRESSION: Persistent low lung volumes with left greater than right bibasilar reticular multifocal a nd confluent opacities consistent with covid-19 infection. No significant change from one day earlier .
[2020-05-26 08:31] LABS: Anisocytosis Slight; Basophils % (A) 0 %; Eosinophils # (A) 0.1 k/uL (0-0.7); Eosinophils % (A) 1 %; HCT 36.9 % (34.0-46.0); HGB 12.7 gm/dL (11.4-16.0); Lymphocytes # (A) 0.4 k/uL (1.0-4.8); Lymphocytes % (A) 7 %; MCH 29.6 pg (25.0-35.0); MCHC 34.4 g/dL (31.0-37.0); MCV 86.2 fL (80.0-100.0); Mean Platelet Volume 9.8; Monocytes # (A) 0.2 k/uL (0-1.0); Monocytes % (A) 3 %; Neutrophils % (A) 89 %; RBC 4.28 m/uL (3.80-5.40); RDW 17.4 % (11.5-15.5); WBC 5.6 k/uL (3.8-10.6)
[2020-05-26 08:38] LABS: Platelet Count 19 k/uL (150-450)
[2020-05-26] MEDS: allopurinoL 100 MG TAB PO SCH (08:53)
[2020-05-26] MEDS: methylPREDNISolone SOD SUCCI 40 MG/ML 1 ML VIAL IV SCH ×2 (08:53→21:00)
[2020-05-26] MEDS: ATORVASTATIN 40 MG TAB PO SCH (08:53)
[2020-05-26] MEDS: lisinopriL 10 MG TAB PO SCH (08:53)
[2020-05-26] MEDS: FERROUS SULFATE 325 MG TAB PO SCH (08:53)
[2020-05-26] MEDS: CHOLECALCIFEROL 25 MCG (1000 IU) TABLET PO SCH (08:53)
[2020-05-26] MEDS: ZINC SULFATE 220 MG CAP PO SCH (08:53)
[2020-05-26] MEDS: MAG HYDROX/AL HYDROX/SIMETH 30 ML CUP PO SCH ×4 (08:53→20:58)
[2020-05-26] MEDS: SENNOSIDES-DOCUSATE SODIUM 1 EACH TAB PO SCH (08:53)
[2020-05-26] MEDS: GABAPENTIN 300 MG CAP PO SCH ×4 (08:53→21:01)
[2020-05-26] MEDS: ASCORBIC ACID 500 MG TAB PO SCH (08:53)
[2020-05-26] MEDS: ESCITALOPRAM 20 MG TAB PO SCH (08:53)
[2020-05-26] MEDS: CYANOCOBALAMIN 500 MCG TAB PO SCH (08:53)
--- NOTE | 2020-05-26 10:59 | P.PN ---
Subjective Progress Note Date: 05/26/20 Acute CoVID 19 pneumonia 79-year-old female patient, morbidly obese with a BMI of 47, was hospitalized for COVID 19 related pneumonia. The patient currently is hypoxic on 3 L of oxygen by nasal cannula. She has comorbidities including obesity with a BMI of 47, hypertension, diabetes mellitus and gout. She also has hyperlipidemia and hypothyroidism. The patient started getting symptoms approximately a week ago, on 04/28/2020 and the patient was diagnosed having Covid 19 infection for a primary care physician's office on 04/29.. She continued to have episodes of fever and subsequently she became progressively more short of breath necessitating emergency department visitation today and ultimately she was hospitalized. Her chest x-ray showing bilateral pulmonary infiltrates peripheral distribution more so on the right compared to the left. The patient was started on steroids.. She is slightly nauseated. She also has loss of taste and smell LDH level is currently at 802 with a CRP of 55 and she had a lactic acid level of 2.1 at the time of admission. There d-dimer is still pending for now. Her white cell count is at 1.4 and the patient is lymphopenic with a lymphocyte count of 0.6 and there is also a drop in her platelet count down to 80 and these are all manifestations of COVID 19 infection. On today's evaluation of 04/27/2020, the patient's oxygenation has gotten worse. I saw her in the emergency department yesterday and she was on 4 L. She progressively required higher oxygen flow and she went up to a high flow oxygen through the nasal cannula airvo which she feels a currently she is on a BiPAP at a pressure of 10/5 with an FiO2 of 100%. She is able to generate a tidal volume around 450-500. Respiratory rate is in the mid 30s low 40s. She feels well. She is in mild degree of respiratory distress. She is still able to converse and talk to her BiPAP mask. Her current pulse ox is 94%. 60 showing diffuse breath and pulmonary infiltrates consistent with Covid 19 related pneumonia. Her white cell count is still down at 1.2. Platelet count is at 70 now which is low. D-dimer is at 0.65, her LDH level is at 835 with a CRP of 56. She is on Decadron. I'm going to switch her to Solu-Medrol. She is currently taking REM should be considered for convalescent plasma and addition to Tocilizumab The patient is seen today 05/06/2020 in follow-up on the regular medical floor. She is currently sitting up in bed. Awake and alert in no acute distress. Currently on BiPAP 10/5 and 100% FiO2. Current saturation 88%. Chest x-ray reveals mild, medically. Residual bilateral airspace disease. Improving compared to previous. This is day #3 of Remdesivir. She received convalescent plasma 1, tocilizumab. D-dimer 0.84. C-reactive protein 2.8. LDH 459. She remains on Decadron, IV Solu-Medrol, vitamin supplements. Patient was reevaluated today on 05/09/2020, remains on BiPAP, she is on 100%, O2 sats is 94%. Surprisingly, the patient seems to be doing well in spite of her significant O2 requirement and BiPAP. Patient received REM, she also received convalescent plasma and ACTEMRA. And so far does not seem to be making that significant turnaround and significant clinical improvement. CBC and basic metabolic profile are normal except for WBC count is 2.0 today. Patient was reevaluated today on 05/10/2020, still requiring significant amount of FiO2, she remains on BiPAP at 90% FiO2, she is on IPAP of 10 and EPAP of 5, and O2 saturation remains marginal. Clinically however the patient feels better mikhial athing easier, and have d-dimer is not that significantly elevated but it is nonetheless abnormal. Hence I recommended a CT angiogram of the chest to be done today. Renal profile is normal. CBC continues to show leukopenia with WBC count of 2.0. Electrolytes are normal. Patient was reevaluated today on 05/11/2020, patient is basically about the same. Remains on BiPAP. Her FiO2 is still at 90%, and her O2 saturation is in the low 90s. Patient is on IPAP of 10 and EPAP of 5, seems to be very comfortable. CT angiogram of the chest yesterday showed bilateral interstitial infiltrates, no evidence of thromboembolic disease/pulmonary embolism. WBC count is 2.2 hemoglobin is 11.6. A left lites are normal renal profile is normal clinically the patient is fairly comfortable, however she is still requiring significant high FiO2. Reevaluated today on 05/12/2020, patient is feeling much better today, breathing a lot easier, she is now on 80% FiO2 remains on BiPAP with IPAP of 10 and EPAP of 5. But her FiO2 was cut down to 80%, and I will cut it down further to 70% and her O2 saturation seems to be significantly improved. Patient feels that she felt much better after the Lasix was given yesterday. I will recommend another dose of Lasix to be given today. Her CT angiogram of the chest yesterday questioned mild interstitial edema. However I felt it was all related to her underlying Covid 19 pneumonitis. Nonetheless Lasix was given, and clinically the patient felt better. Labs today were all reviewed she had WBC count of 2.3 hemoglobin 12.4 lites are normal renal profile remains normal. Progress note dated 05/13/2020. Currently, the patient remains on BiPAP, at 70%. She's feeling better today. She feels less short of breath. Her BiPAP settings are IPAP 10, and EPAP 5. I did tell the patient to move around when she is lying in bed. She should lie down on her right side, left side, supine, and if possible, try to prone herself. Current laboratory data includes a white count of 2, hemoglobin 11.7, hematocrit 35.2, platelet count 94,000. Sodium is 136, potassium 3.4, chlorides 101, CO2 33, anion gap 2, BUN [address], [address] angiogram on May 10 showed no evidence of pulmonary embolism, but did show moderately severe pulmonary interstitial edema/infiltrates. Progress note dated 05/14/2020. The patient remains on BiPAP at 70%. She feels much improved. Her IPAP of 10 and EPAP is fine. She's feeling much less short of breath. I did tell her to move around in bed, right side down, left side down, supine, and even on her stomach if she can. No new labs today to look at. No recent chest x-rays to evaluate either. Medications are appropriate at this time. CT angiogram from May 10 is reviewed. Progress note dated 05/15/2020. The patient remains on BiPAP, settings of IPAP 10, and EPAP of 5. She is on 70%. Her saturations are right around 90% or so. Despite that, the patient states that she is feeling much better. She has been moving around in bed. His been laying on her right side, left side, supine, even on her stomach at times. No new labs today other than a sodium of 137, potassium 4, chloride 98, CO2 34, anion gap 5, BUN 19, creatinine 0.67. The patient is seen today 05/16/2020 in follow-up on the selective care unit. She is currently resting fairly comfortably in bed. She is continued on BiPAP currently 10/5 and 70% FiO2. She is maintaining O2 saturations about 85-86%. Today she is feeling mostly tired and fatigued. Breathing is about the same. No better but no worse currently. She remains on IV Solu-Medrol, Lovenox, vitamin supplements. Blood glucose 146. The patient is seen today 05/17/2020 in follow-up on the selective care unit. She remains awake and alert in no acute distress. She is still requiring BiPAP support 10/5 and 80% FiO2 to maintain O2 saturations in the mid 80s. She's been afebrile. Hemodynamically stable. Chest x-ray reveals cardiomegaly, continued bilateral airspace disease, slightly worsened compared to previous. Sodium 133. Potassium 4.5. Creatinine 0.67. She remains on Lovenox, IV Solu-Medrol, vitamin supplements. The patient is seen today 05/19/2020 in follow-up on the selective care unit. She is currently sitting up at the bedside. Awake and alert in no acute distress. She is still on BiPAP 12/6 and 90% FiO2. White count 4.3. Hemoglobin 12.6. Platelet count dropped to 37,000. Lymphocytes 0.3. Sodium 133. Potassium 4.5. Creatinine 0.71. Remains on IV Solu-Medrol, vitamin supplements. Lovenox which will be held. 05/20/2020 the patient is being seen for a follow-up. The patient remains on BiPAP at a pressure of 12/6 with an FiO2 of 90%. Remains on IV Solu-Medrol. She is awake and alert. She denies having any significant shortness of breath. Hemodynamically stable. She had prolonged hospitalization due to complications of Covid 19. She is a morbidly obese female patient with a BMI of 49. She was initially on 3 L about 2 by nasal cannula. She is known to have diabetes, gout and hypertension and hyperlipidemia and hypothyroidism. The patient was diagnosed on 04/28/2020 and since then her condition progressively decompen sated. She was aggressively treated over the past 2 weeks here in the hospital and her blood work showing a component of thrombocytopenia, for that reason anticoagulation was held. The patient remains on IV Solu-Medrol. She is taking 60 mg IV every 6 hours. The last chest x-ray was done on May 17 the patient had bilateral lower lobe pulmonary infiltrates . Also, there is history drop in the platelet count which is down to 30. Her white second is at 2.5 with a hemoglobin of 11.7. Rest of the blood work essentially within normal limits. The latest chest x-ray was done on 05/09/2020. She is able to tolerate the BiPAP reasonably well. Her pulse ox is a mid 80s this morning. She is able to generate a tidal volume of IVC with a respiratory rate of 26 cm ventilation of 15. She is currently off Lovenox. She is not taking any antiplatelet agents. Levaquin is a 15 units a day along with 5 units with meals 3 times a day. She is also developing increased swelling in lower extremities On today's evaluation, the patient is being seen for follow-up for Covid 19 related pneumonia. The patient is still on BiPAP at a pressure of 12/6 with an FiO2 of 90%. Her pulse ox is around 91%. She is hemodynamically stable. The patient is morbidly obese and her current BMI is 49.7. Note that she progressively got worse and she end up on BiPAP therapy. She is on IV Solu Medrol 60 mg every 6 hours. Her chest x-ray showing some limited improvement from yesterday where the diaphragms were better visualized. She is able to tolerate the BiPAP well. On today's evaluation, the patient is generating a tidal volume of 750 and her current respiratory rate is in the order of 20-27. She had some increased swelling in lower extremity bilaterally and the patient was started on Lasix yesterday and the patient is a negative fluid balance of 750 mL over the past 24 hours. She is still has significant amount of edema and she remains on Lasix at a dose of 40 mg IV every 12 hours. Platelet count currently is down to 30. DIC profile was essentially negative. The inflammatory markers from yesterday were elevated. On 05/22/2020 currently the patient remains on BiPAP at a pressure of 12/6 with an FiO2 of 90%. Her saturations remained marginal. The patient is generating adequate tidal volumes of 570 on her machine. She was started on diuretics yesterday and the patient has been negative fluid balance of 2 L over the past 24 hours. She is awake and calm and comfortable. She wasn't having issues with thrombocytopenia. The platelet count today is 23. Hematology is going to evaluate the patient. The coagulation profile is within normal limits. LDH level is at 1590 with a CRP of less than 5. She is awake and alert. She is following commands and answering questions face is able to take sips of soup and oatmeal. She is resting comfortably in bed. She remains on IV Solu-Medrol. She is also on Lasix 40 mg IV every 12 hours. She is also on Levemir insulin 15 units along with a prescription coverage. No anticoagulation for now because of her underlying thrombocytopenia. On 05/23/2020 I'm seeing the patient for a follow-up. She is awake and alert. She still on a BiPAP at a pressure of 12/6 cm of water. She has also an FiO2 of 90%. Overall, she is awake and alert and she is following commands and answering questions. She remains in good spirits she is calm and comfortable. No new complaints pH remains on IV Solu-Medrol. She also on Lasix 40 mg every 12 hours. Her platelet counts are still low at 19,000. The patient was seen by hematology. The patient was given units of cryoprecipitate yesterday. In terms of her pulmonary status, the patient is stable. The patient is not having any signs of bleeding. She is unable to tolerate some oral intake. In terms of her inflammatory markers, the levels are still up with an LDH level of 161, CRP of less than 5. Her AHI the antibodies came back negative. Rest of the blood work is all within normal limits. I will see her condition essentially unchanged compared to yesterday. In terms of her blood sugar control, the patient is on Levemir insulin 15 units in addition to NovoLog 5 units with meals and a sliding scale coverage. No chest x-ray from today. Her last chest x-ray was from [facility]. 05/24/2020, the patient remains on BiPAP 12/6 with an FiO2 of 90%. She is on IV Solu-Medrol. Platelet counts remain unchanged at 19,000. Her blood work from today shows some mild transaminitis. LDH level is 1541, nor and the CRP level is less than 5, lower. The white cell count is at 4 with a hemoglobin of 12.8. No new complaints pH is able to communicate. She is tolerating diet. No nausea. No vomiting. No diarrhea. No abdominal pain. She is on Levemir insulin 20 units along with NovoLog 5 units with meals and a sliding scale coverage. Her current pulse ox is 88%. Unable to wean her off the BiPAP for now. Chest x-ray showing some limited improvement in aeration of the lungs bilaterally. On examination, she continues to have some crackles. She does have some underlying cardiomegaly on the chest x-ray and the lower lobe pulmonary infiltrates have slightly improved on the most recent chest x-ray was done today. 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 Cardiology is also on the case regarding hypertension. She is currently on a combination of lisinopril and hydrochlorothiazide. 05/25/2020 the patient remains on 12/6 BiPAP with an FiO2 of 90%. She remains BiPAP dependent and her current pulse ox is around 90% and she is unable to wean off her FiO2. No significant tachypnea. Her respiratory rate currently is at mid 20s and her tidal volumes above 450. She is having some discomfort in her chest probably related to some heartburn. Oral intake is minimal and the patient is basically taking shakes and soft diet. Her platelet count today is down to 18. Hematology is monitoring this and the recommendations is to transfuse this patient with platelets under 15 K and some cryoprecipitate once the fibrinogen under 100.. The patient is not having any bleeding complications for now. On her blood work, she has a sodium of 129 and the renal function is stable. Her LFTs are still abnormal and she has some mild chest and pneumonit is. LDH is 1438 and the CRP level is less than 5. D-dimer from yesterday was 0.7. No recent chest x-ray from today. The chest x-ray from yesterday was showing bilateral pulmonary infiltrates more so in the lung bases more so on the left. As far as treatment, she remains on IV Solu-Medrol 60 mg every 6 hours and she is also on Lasix 40 mg on a daily basis to maintain her fluid balance. 2020, patient remains on BiPAP with an FiO2 of 100% and the pressures of 12/6. Current pulse ox is around 90%. Afebrile. Hemodynamically stable. Continues to have a respiratory rate in the mid 20s. She is very much tolerant to the BiPAP and she has limited reserve as the patient desaturates with coughing, talking, movement, etc. She is still trying to keep on with her nutrition through shakes and the patient is also eating. The inflammatory markers are still pending for today. The LDH from yesterday was 1438 and the CRP was 5.4 and as such the LDH level continues to be elevated. D-dimer is low at 0.5. Platelet count is at 19 and hematology is on the case. No platelet transfusions unless her platelet count is less than 15,000 per hematology. Otherwise, no other significant events. The patient remains on IV Solu-Medrol. She is currently at a dose of 40 mg every 12 hours of the patient's other medical dose was tapered yesterday. She has been the hospital for more than 3 weeks and she's been on steroids since. Most recent chest x-ray from today showing stable bilateral pulmonary infiltrates and the infiltrates are diffuse involving the upper and lower lobes bilaterally. Lung volumes are essentially small. She is also on Lasix once daily and we stopped her hydrochlorothiazide. Her sodium level today is pending, from yesterday was 129, she does have some ongoing transaminitis. Objective - Vital Signs Vital signs: Vital Signs Temp 97.6 F 05/26/20 08:00 Pulse 95 05/26/20 08:00 Resp 22 05/26/20 08:00 BP 117/61 05/26/20 08:00 Pulse Ox 90 L 05/26/20 08:00 Intake & Output 05/25/20 05/26/20 05/26/20 18:59 06:59 18:59 Intake Total 940 730 240 Output Total 800 400 Balance 940 -70 -160 Weight 130.5 kg Intake: Oral 940 730 240 Output: Urine 800 400 Uretheral ([place]) 800 Other: Voiding Method Indwelling Catheter Indwelling Catheter Indwelling Catheter - Exam Gen. appearance morbidly obese and she is calm and comfortable lying acute respiratory distress, currently on and the patient is a bit short of breath, currently on a BiPAP at a pressure of 12/6 with an FiO2 of 100%. Head exam was generally normal. There was no scleral icterus or corneal arcus. Mucous membranes were moist. Neck was supple and without jugular venous distension, thyromegaly, or carotid bruits. Carotids were easily palpable bilaterally. There was no adenopathy. Lungs sounds are diminished the patient is crackles in the lung bases more so on the right Cardiac exam revealed the PMI to be normally situated and sized. The rhythm was regular and no extrasystoles were noted during several minutes of auscultation. The first and second heart sounds were normal and physiologic splitting of the second heart sound was noted. There were no murmurs, rubs, clicks, or gallops. Abdominal exam revealed normal bowel sounds. The abdomen was soft, non-tender, and without masses, organomegaly, or appreciable enlargement of the abdominal aorta. Examination of the extremities revealed easily palpable radial, femoral and pedal pulses. There was no cyanosis, clubbing or edema. Examination of the skin revealed no evidence of significant rashes, suspicious appearing nevi or other concerning lesions. Neurologically, the patient is awake and alert and the patient does not have any focal neurological deficit. Cranial nerves are essentially intact. - Labs CBC & Chem 7: 05/26/20 07:38 05/25/20 10:36 Labs: Abnormal Lab Results - Last 24 Hours (Table) 05/25/20 05/25/20 05/25/20 Range/Units 10:36 10:36 10:36 RDW 17.0 H (11.5-15.5) % Plt Count 18 L* (150-450) k/uL Lymphocytes # 0.2 L (1.0-4.8) k/uL Haptoglobin (31.2-198.0) mg/dL APTT 20.6 L (22.0-30.0) sec Fibrinogen 179 L (200-500) mg/dL Sodium 129 L (137-145) mmol/L Chloride 84 L (98-107) mmol/L Carbon Dioxide 39 H (22-30) mmol/L BUN 38 H (7-17) mg/dL Glucose 169 H (74-99) mg/dL POC Glucose (mg/dL) (75-99) mg/dL Total Bilirubin 1.7 H (0.2-1.3) mg/dL AST 101 H (14-36) U/L ALT 234 H (4-34) U/L Alkaline Phosphatase 222 H (38-126) U/L Lactate Dehydrogenase 1438 H (313-618) U/L Total Protein 5.4 L (6.3-8.2) g/dL Albumin 3.0 L (3.5-5.0) g/dL 05/25/20 05/25/20 05/25/20 Range/Units 10:36 11:26 16:52 RDW (11.5-15.5) % Plt Count (150-450) k/uL Lymphocytes # (1.0-4.8) k/uL Haptoglobin 214.0 H (31.2-198.0) mg/dL APTT (22.0-30.0) sec Fibrinogen (200-500) mg/dL Sodium (137-145) mmol/L Chloride (98-107) mmol/L Carbon Dioxide (22-30) mmol/L BUN (7-17) mg/dL Glucose (74-99) mg/dL POC Glucose (mg/dL) 163 H 167 H (75-99) mg/dL Total Bilirubin (0.2-1.3) mg/dL AST (14-36) U/L ALT (4-34) U/L Alkaline Phosphatase (38-126) U/L Lactate Dehydrogenase (313-618) U/L Total Protein (6.3-8.2) g/dL Albumin (3.5-5.0) g/dL 05/25/20 05/26/20 05/26/20 Range/Units 20:55 06:28 07:38 RDW 17.4 H (11.5-15.5) % Plt Count 19 L* (150-450) k/uL Lymphocytes # 0.4 L (1.0-4.8) k/uL Haptoglobin (31.2-198.0) mg/dL APTT (22.0-30.0) sec Fibrinogen (200-500) mg/dL Sodium (137-145) mmol/L Chloride (98-107) mmol/L Carbon Dioxide (22-30) mmol/L BUN (7-17) mg/dL Glucose (74-99) mg/dL POC Glucose (mg/dL) 104 H 168 H (75-99) mg/dL Total Bilirubin (0.2-1.3) mg/dL AST (14-36) U/L ALT (4-34) U/L Alkaline Phosphatase (38-126) U/L Lactate Dehydrogenase (313-618) U/L Total Protein (6.3-8.2) g/dL Albumin (3.5-5.0) g/dL Assessment and Plan Plan: 1 ARDS secondary to Covid 19 related pneumonia, symptoms started on 04/28/2020, diagnosed to be positive on 04/29/2020. She has completed Remdesivir, tocilizumab and convalescent plasma. The patient has been very slow to progress and the patient has required BiPAP throughout the past 2 weeks. Chest x-ray remains unchanged from yesterday with infiltrates in lung bases more so on the left. The patient remains BiPAP dependent at the same settings of 12/6 with FiO2 of 100%. I would say her condition essentially unchanged the patient has unlimited progress during her 3 week stay in the hospital.. She remains on IV Solu-Medrol. No anticoagulants for now. The Solu-Medrol was tapered yesterday. LDH remains elevated. Chest x-ray findings are essentially unchanged with diffuse bilateral pulmonary infiltrates related to COVID-19 related pneumonia/ARDS. 2 Acute hypoxic respiratory failure secondary to above, currently on BiPAP 12/6 and 100% FiO2 3 Fever secondary to above , recovered 4 Leukopenia, lymphopenia and thrombocytopenia secondary to above, platelets down to 19k, consider a underlying DIC 5 Mild elevation of inflammatory markers secondary to Covid 19 infection 6 Obesity with a BMI of 49.0 7 Diabetes mellitus type 2 8 Hypertension 9 Hyperlipidemia 10 Hypothyroidism Plan IV Solumedrol and the dose Will be reduced to 40 mg every 12 hours vitamin supplements Lasix 40 mg once a day, awaiting a follow-up sodium level DIC profile was was done and hematology thinks that there may be a low-grade DIC underlying Thrombocytopenia. She was given cryoprecipitate. HIT antibodies was negative Count is up to 19K , mythology is on the case. Lovenox to be held due to low platelet count Doppler of the lower extremities change the Lasix to 40 mg once a day Remains on BiPAP 12/6 and 100% FiO2 She has been slow to progress, still in ARDS, still hypoxic, still having a high PF ratio is still BiPAP dependent. We'll continue to follow, prognosis poor secondary to above-mentioned comorbidities.
[2020-05-26 11:33] LABS: Anisocytosis Slight; Basophils % (A) 0 %; Eosinophils # (A) 0.1 k/uL (0-0.7); Eosinophils % (A) 2 %; HGB 13.3 gm/dL (11.4-16.0); Lymphocytes # (A) 0.2 k/uL (1.0-4.8); Lymphocytes % (A) 4 %; MCH 30.3 pg (25.0-35.0); MCHC 35.1 g/dL (31.0-37.0); MCV 86.4 fL (80.0-100.0); Mean Platelet Volume 9.8; Monocytes # (A) 0.2 k/uL (0-1.0); Monocytes % (A) 3 %; Neutrophils # (A) 5.9 k/uL (1.3-7.7); Neutrophils % (A) 90 %; RBC 4.39 m/uL (3.80-5.40); RDW 17.4 % (11.5-15.5); WBC 6.5 k/uL (3.8-10.6)
[2020-05-26 11:38] LABS: Glucose,Whole Blood 115 mg/dL (75-99)
[2020-05-26 11:40] LABS: Platelet Count 18 k/uL (150-450)
[2020-05-26 11:47] LABS: Potassium 4.3 mmol/L (3.5-5.1)
[2020-05-26 11:49] LABS: ALT 216 U/L (4-34); AST 95 U/L (14-36); African American GFR (CKD) >90 (>60 ml/min/1.73 sqM); Albumin 2.9 g/dL (3.5-5.0); Alkaline Phosphatase 221 U/L (38-126); Blood Urea Nitrogen 46 mg/dL (7-17); C Reactive Protein <0.5 mg/dL (<1.0); Calcium 8.8 mg/dL (8.4-10.2); Chloride 83 mmol/L (98-107); Glucose 109 mg/dL (74-99); Non-African American GFR(CKD) 84 (>60 ml/min/1.73 sqM); Sodium 128 mmol/L (137-145); Total Bilirubin 1.7 mg/dL (0.2-1.3); Total Protein 5.4 g/dL (6.3-8.2)
[2020-05-26 11:54] LABS: Anion Gap 6 mmol/L
[2020-05-26 12:04] LABS: Carbon Dioxide 39 mmol/L (22-30)
[2020-05-26 16:14] LABS: Glucose,Whole Blood 216 mg/dL (75-99)
[2020-05-26 20:33] LABS: Glucose,Whole Blood 175 mg/dL (75-99)
[2020-05-26] MEDS: INSULIN DETEMIR (LEVEMIR) 100 UNIT/ML SYR SQ SCH (20:58)
[2020-05-26] MEDS: BACLOFEN 10 MG TAB PO SCH (21:01)
--- NOTE | 2020-05-27 01:17 | P.PN ---
Subjective Progress Note Date: 05/25/20 Principal diagnosis: Acute hypoxic respiratory failure secondary to Covid pneumonia 59-year-old female admitted with acute hypoxic respiratory failure secondary to covid- 19 pneumonia, hypertension, diabetes mellitus, obesity and multiple other medical issues. Oxygen requirements worsened, requiring BiPAP. Chest x-ray reporting bilateral interstitial and patchy airspace opacities remain ,mild cardiomegaly. Denies chest pain, palpitations, reports chest soreness from nonproductive cough. Received a dose of Actemra, maintained on Remdesevir, IV steroids , antibiotics and multivitamin supplements. Afebrile, LDH and C- reactive protein trending down. 05/07/2020 Maintained on Remdesevir/covid regimine. Continues to require BiPAP 100% to maintain O2 sats in the high 80s to 90s. Complains of anxiety regarding mask. Deep breaths trigger cough. Afebrile. Labs pending. Denies chest pain, palpitations. 05/08/2020 sitting up at side of bed, continues to require 100% BiPAP. Maintained on Covid regimen including Remdesevir. T-max 99.1. Occasional nonproductive cough. Denies chest pain, 05/09/20 unable to tolerate BiPAP decreased to 90% with O2 sats decreased to 84%, currently back up on 100% BiPAP, maintaining O2 sats in the 90s on 100s. T-max 99.1, labs pending. Anxiety controlled. Maintained on Covid regimen, completed 5 doses of Remdesevir. Labs pending. 05/10/2020 maintaining O2 sats in the low 90s on 95% BiPAP. Continues on IV steroids, vitamin C, vitamin D, zinc. Afebrile. Reports less coughing. Denies chest pain, palpitations. 05/13/2020 patient feeling better, reports she has " turned the corner". Maintaining O2 sats in the 90s on BiPAP 70%. Minimal nonproductive cough. Denies chest pain, palpitations. Afebrile, Received Lasix yesterday, potassium 3.4.,creatinine 0.69. 05/14/2020 continues feeling better, maintaining O2 sats in the 90s on BiPAP 70%. Occasional nonproductive cough. Mild pedal edema. Denies chest pain, palpitations. 05/15/2020 maintaining O2 sats in the low 90s on 70% BiPAP. Received Lasix yesterday, less pedal edema, renal function stable. Breathing easier. Blood sugars controlled. 05/16/2020 maintaining O2 sats in the low 90s on nonrebreather and high flow airvo. Afebrile, sodium trending down, 123, creatinine 1.8. Continues to feel better and reporting less shortness of breath. 05/17/2020 80% BiPAP, maintaining O2 sats in the 90s. Reports last night she t olerated 15 minutes on 15 L high flow nasal cannula plus nonrebreather mask .Nonproductive cough. Less tired, reports more energy. Blood sugars controlled. Denies chest pain, palpitations. Afebrile. 05/20/2020 maintained on BiPAP 90%, maintaining O2 sats in the high 80s to low 90s. Hemoglobin 11.7, Platelets decreased to 30, currently off of Lovenox .Afebrile, WBC 2.9. Chest x-ray pending. 05/21/2020 continues on BiPAP 90% maintaining O2 sats in the high 80s. Reports that well, feels good. Afebrile. Yesterday's x-ray reported persistent low lung volumes, cardiomegaly, bilateral multifocal opacity is consistent with Covid 19 infectionno significant change. Doppler reported Bilateral lower extremities negative for DVT. Diuresing well on Lasix IV push with 24-hour I&O reflecting a negative fluid balance. BUN 25, creatinine 0.7. Hit antibodies pending. 05/22/2020 maintaining O2 sats of 87 to low 90s on 90% BiPAP. Diuresing well on Lasix IV push with 24-hour I&O reflecting a negative fluid balance. BUN 27/creatinine 0.73. Hemoglobin 13.5, platelets 23-anticoagulation remains on hold. Hematology consult in place, recommendations pending. Reports sleeping well with no shortness of breath. Afebrile, normal WBC. 05/23/2020 remains on same BiPAP settings of 90% maintaining O2 sats of 90. in October she was referred to hematology/Dr. Carrion further workup regarding pancytopenia. Bone marrow was completed and was told it was fine and that she had iron deficient anemia and needed to proceed with iron transfusions. Reports she did not have a chance to start the transfusions prior to being hospitalized with Covid. Platelets currently 19 without evidence of bleeding, no petechiae .evaluated by hematology yesterday with recommendations noted and appreciated. Received transfusion of cryoprecipitate with fibrinogen up to 158. 05/24/2020 continues on BiPAP 90% to maintain O2 sats in the high 80s to low 90s. Chest x-ray pending. Telemetry sinus rhythm. hypertensive this morning, hydrochlorothiazide added to med regimen. Labs pending. Good diet intake .Hyperglycemic, blood sugars ranging from 160s to 220. 05/25/2020 Patient is currently on BiPAP. Awake alert and seems comfortable. Patient is being continued on IV Solu-Medrol and not on anticoagulation due to low platelet count. Patient has been afebrile. Laboratory data showed WBC 4.1 hemoglobin 13.3 platelets 18 INR 1.1, D-dimer 0.52 sodium 129 potassium 3.5 bicarb is 39 BUN 38 and c reatinine 0.82 AST 1 1 ALT 234 alk phos 222 LDH 1438 Patient is being continued Metformin and Levemir at at bedtime and insulin sliding scale. As well as preprandial 5 units 3 times daily AC was added. Continued on methylprednisolone 40 mg IV every 12. Pulmonary is on board. Cultures showed no growth. Current medications reviewed.. Objective - Vital Signs Vital signs: Vital Signs Temp 98.4 F 05/27/20 00:00 Pulse 81 05/27/20 00:00 Resp 20 05/27/20 00:00 BP 89/56 05/27/20 00:00 Pulse Ox 89 L 05/27/20 00:00 Intake & Output 05/26/20 05/26/20 05/27/20 06:59 18:59 06:59 Intake Total 730 773 Output Total 800 800 Balance -70 -27 Weight 130.5 kg Intake: Oral 730 773 Output: Urine 800 800 Uretheral (Trevino) 800 Other: Voiding Method Indwelling Catheter Indwelling Catheter Indwelling Catheter - Exam - Exam PHYSICAL EXAM: VITAL SIGNS: [As above] GENERAL: Alert and oriented 3, Sitting up in bed wearing BiPAP,NAD HEENT: Conjunctivae normal. eyes normal. CARDIOVASCULAR: S1, S2 regular.No murmur RESPIRATION: Diminished bases with bibasilar crackles ABDOMEN: Soft, nontender,nondistended.+BS, No guarding, no masses palpable. LEGS: no edema, no cyanosis, no clubbing. No calf pain. NERVOUS SYSTEM: Cranial N 2-12 grossly normal.No focal deficits. Skin: Warm and dry, no rash - Labs CBC & Chem 7: 05/26/20 11:15 05/26/20 11:15 Labs: Abnormal Lab Results - Last 24 Hours (Table) 05/25/20 05/26/20 05/26/20 Range/Units 10:36 06:28 07:38 RDW 17.4 H (11.5-15.5) % Plt Count 19 L* (150-450) k/uL Lymphocytes # 0.4 L (1.0-4.8) k/uL Haptoglobin 214.0 H (31.2-198.0) mg/dL D-Dimer (<0.60) mg/L FEU Sodium (137-145) mmol/L Chloride (98-107) mmol/L Carbon Dioxide (22-30) mmol/L BUN (7-17) mg/dL Glucose (74-99) mg/dL POC Glucose (mg/dL) 168 H (75-99) mg/dL Total Bilirubin (0.2-1.3) mg/dL AST (14-36) U/L ALT (4-34) U/L Alkaline Phosphatase (38-126) U/L Total Protein (6.3-8.2) g/dL Albumin (3.5-5.0) g/dL 05/26/20 05/26/20 05/26/20 Range/Units 11:15 11:15 11:15 RDW 17.4 H (11.5-15.5) % Plt Count 18 L* (150-450) k/uL Lymphocytes # 0.2 L (1.0-4.8) k/uL Haptoglobin (31.2-198.0) mg/dL D-Dimer 0.74 H (<0.60) mg/L FEU Sodium 128 L (137-145) mmol/L Chloride 83 L (98-107) mmol/L Carbon Dioxide 39 H (22-30) mmol/L BUN 46 H (7-17) mg/dL Glucose 109 H (74-99) mg/dL POC Glucose (mg/dL) (75-99) mg/dL Total Bilirubin 1.7 H (0.2-1.3) mg/dL AST 95 H (14-36) U/L ALT 216 H (4-34) U/L Alkaline Phosphatase 221 H (38-126) U/L Total Protein 5.4 L (6.3-8.2) g/dL Albumin 2.9 L (3.5-5.0) g/dL 05/26/20 05/26/20 05/26/20 Range/Units 11:36 16:13 20:32 RDW (11.5-15.5) % Plt Count (150-450) k/uL Lymphocytes # (1.0-4.8) k/uL Haptoglobin (31.2-198.0) mg/dL D-Dimer (<0.60) mg/L FEU Sodium (137-145) mmol/L Chloride (98-107) mmol/L Carbon Dioxide (22-30) mmol/L BUN (7-17) mg/dL Glucose (74-99) mg/dL POC Glucose (mg/dL) 115 H 216 H 175 H (75-99) mg/dL Total Bilirubin (0.2-1.3) mg/dL AST (14-36) U/L ALT (4-34) U/L Alkaline Phosphatase (38-126) U/L Total Protein (6.3-8.2) g/dL Albumin (3.5-5.0) g/dL Assessment and Plan Assessment: Acute Covid-19 pneumonia, status post convalescent plasma, received tocilizumab, completed Remdesevir Acute hypoxic respiratory failure secondary to the above,BiPAP dependent. Hyponatremia, hypovolemic, suspect diuretic induced Acute anxiety secondary to the above and BiPAP mask, improved leukopenia, lymphopenia and thrombocytopenia secondary to above. Low grade DIC as per hematology, status post cryoprecipitate Hit antibodies negative Diabetes mellitus type 2 Hypertension Hyperlipidemia Hypothyroidism Morbid obesity, BMI 47 Plan: Continue on current medication regimen, monitoring and symptomatic treatment. Chest x-ray and labs pending .lisinopril for HTN. COVID cocktail. Lovenox remains on hold related to thrombocytopenia. Close monitoring for bleeding with labs ordered for a.m. Levemir increased, close monitoring of Accu-Cheks. Prognosis guarded given multiple complex medical issues. Time with Patient: Greater than 30
--- NOTE | 2020-05-27 01:20 | P.PN ---
Subjective Progress Note Date: 05/26/20 Principal diagnosis: Acute hypoxic respiratory failure secondary to Covid pneumonia 59-year-old female admitted with acute hypoxic respiratory failure secondary to covid- 19 pneumonia, hypertension, diabetes mellitus, obesity and multiple other medical issues. Oxygen requirements worsened, requiring BiPAP. Chest x-ray reporting bilateral interstitial and patchy airspace opacities remain ,mild cardiomegaly. Denies chest pain, palpitations, reports chest soreness from nonproductive cough. Received a dose of Actemra, maintained on Remdesevir, IV steroids , antibiotics and multivitamin supplements. Afebrile, LDH and C- reactive protein trending down. 05/07/2020 Maintained on Remdesevir/covid regimine. Continues to require BiPAP 100% to maintain O2 sats in the high 80s to 90s. Complains of anxiety regarding mask. Deep breaths trigger cough. Afebrile. Labs pending. Denies chest pain, palpitations. 05/08/2020 sitting up at side of bed, continues to require 100% BiPAP. Maintained on Covid regimen including Remdesevir. T-max 99.1. Occasional nonproductive cough. Denies chest pain, 05/09/20 unable to tolerate BiPAP decreased to 90% with O2 sats decreased to 84%, currently back up on 100% BiPAP, maintaining O2 sats in the 90s on 100s. T-max 99.1, labs pending. Anxiety controlled. Maintained on Covid regimen, completed 5 doses of Remdesevir. Labs pending. 05/10/2020 maintaining O2 sats in the low 90s on 95% BiPAP. Continues on IV steroids, vitamin C, vitamin D, zinc. Afebrile. Reports less coughing. Denies chest pain, palpitations. 05/13/2020 patient feeling better, reports she has " turned the corner". Maintaining O2 sats in the 90s on BiPAP 70%. Minimal nonproductive cough. Denies chest pain, palpitations. Afebrile, Received Lasix yesterday, potassium 3.4.,creatinine 0.69. 05/14/2020 continues feeling better, maintaining O2 sats in the 90s on BiPAP 70%. Occasional nonproductive cough. Mild pedal edema. Denies chest pain, palpitations. 05/15/2020 maintaining O2 sats in the low 90s on 70% BiPAP. Received Lasix yesterday, less pedal edema, renal function stable. Breathing easier. Blood sugars controlled. 05/16/2020 maintaining O2 sats in the low 90s on nonrebreather and high flow airvo. Afebrile, sodium trending down, 123, creatinine 1.8. Continues to feel better and reporting less shortness of breath. 05/17/2020 80% BiPAP, maintaining O2 sats in the 90s. Reports last night she t olerated 15 minutes on 15 L high flow nasal cannula plus nonrebreather mask .Nonproductive cough. Less tired, reports more energy. Blood sugars controlled. Denies chest pain, palpitations. Afebrile. 05/20/2020 maintained on BiPAP 90%, maintaining O2 sats in the high 80s to low 90s. Hemoglobin 11.7, Platelets decreased to 30, currently off of Lovenox .Afebrile, WBC 2.9. Chest x-ray pending. 05/21/2020 continues on BiPAP 90% maintaining O2 sats in the high 80s. Reports that well, feels good. Afebrile. Yesterday's x-ray reported persistent low lung volumes, cardiomegaly, bilateral multifocal opacity is consistent with Covid 19 infectionno significant change. Doppler reported Bilateral lower extremities negative for DVT. Diuresing well on Lasix IV push with 24-hour I&O reflecting a negative fluid balance. BUN 25, creatinine 0.7. Hit antibodies pending. 05/22/2020 maintaining O2 sats of 87 to low 90s on 90% BiPAP. Diuresing well on Lasix IV push with 24-hour I&O reflecting a negative fluid balance. BUN 27/creatinine 0.73. Hemoglobin 13.5, platelets 23-anticoagulation remains on hold. Hematology consult in place, recommendations pending. Reports sleeping well with no shortness of breath. Afebrile, normal WBC. 05/23/2020 remains on same BiPAP settings of 90% maintaining O2 sats of 90. in October she was referred to hematology/Dr. Carrion further workup regarding pancytopenia. Bone marrow was completed and was told it was fine and that she had iron deficient anemia and needed to proceed with iron transfusions. Reports she did not have a chance to start the transfusions prior to being hospitalized with Covid. Platelets currently 19 without evidence of bleeding, no petechiae .evaluated by hematology yesterday with recommendations noted and appreciated. Received transfusion of cryoprecipitate with fibrinogen up to 158. 05/24/2020 continues on BiPAP 90% to maintain O2 sats in the high 80s to low 90s. Chest x-ray pending. Telemetry sinus rhythm. hypertensive this morning, hydrochlorothiazide added to med regimen. Labs pending. Good diet intake .Hyperglycemic, blood sugars ranging from 160s to 220. 05/25/2020 Patient is currently on BiPAP. Awake alert and seems comfortable. Patient is being continued on IV Solu-Medrol and not on anticoagulation due to low platelet count. Patient has been afebrile. Laboratory data showed WBC 4.1 hemoglobin 13.3 platelets 18 INR 1.1, D-dimer 0.52 sodium 129 potassium 3.5 bicarb is 39 BUN 38 and c reatinine 0.82 AST 1 1 ALT 234 alk phos 222 LDH 1438 Patient is being continued Metformin and Levemir at at bedtime and insulin sliding scale. As well as preprandial 5 units 3 times daily AC was added. Continued on methylprednisolone 40 mg IV every 12. Pulmonary is on board. Cultures showed no growth. 05/26/2020 Patient is currently lying in bed currently on BiPAP. Patient has been afebrile. Was given cryoprecipitate due to thrombocytopenia yesterday. Patient remains BiPAP currently. Otherwise patient is being continued on IV Solu-Medrol and anticoagulation is on hold. Chest x-ray today showed persistent low lung volumes with left greater than right bibasilar reticular multifocal and confluent opacities consistent with COVID-19 infection. No significant change from 1 day earlier. Laboratory showed WBC 6.5 hemoglobin 13.3 and platelets 18 D-dimer 0.74 sodium 128 potassium 4.3 chloride 83 bicarb 39 BUN 46 AST 95 ALT 216, alk phos 221 and CRP less than 0.5 Current medications reviewed.. Objective - Vital Signs Vital signs: Vital Signs Temp 98.4 F 05/27/20 00:00 Pulse 81 05/27/20 00:00 Resp 20 05/27/20 00:00 BP 89/56 05/27/20 00:00 Pulse Ox 89 L 05/27/20 00:00 Intake & Output 05/26/20 05/26/20 05/27/20 06:59 18:59 06:59 Intake Total 730 773 Output Total 800 800 Balance -70 -27 Weight 130.5 kg Intake: Oral 730 773 Output: Urine 800 800 Uretheral ([place]rev[place]) 800 Other: Voiding Method Indwelling Catheter Indwelling Catheter Indwelling Catheter - Exam - Exam PHYSICAL EXAM: VITAL SIGNS: [As above] GENERAL: Alert and oriented 3, Sitting up in bed wearing BiPAP,NAD HEENT: Conjunctivae normal. eyes normal. CARDIOVASCULAR: S1, S2 regular.No murmur RESPIRATION: Diminished bases with bibasilar crackles ABDOMEN: Soft, nontender,nondistended.+BS, No guarding, no masses palpable. LEGS: no edema, no cyanosis, no clubbing. No calf pain. NERVOUS SYSTEM: Cranial N 2-12 grossly normal.No focal deficits. Skin: Warm and dry, no rash - Labs CBC & Chem 7: 05/26/20 11:15 05/26/20 11:15 Labs: Abnormal Lab Results - Last 24 Hours (Table) 05/25/20 05/26/20 05/26/20 Range/Units 10:36 06:28 07:38 RDW 17.4 H (11.5-15.5) % Plt Count 19 L* (150-450) k/uL Lymphocytes # 0.4 L (1.0-4.8) k/uL Haptoglobin 214.0 H (31.2-198.0) mg/dL D-Dimer (<0.60) mg/L FEU Sodium (137-145) mmol/L Chloride (98-107) mmol/L Carbon Dioxide (22-30) mmol/L BUN (7-17) mg/dL Glucose (74-99) mg/dL POC Glucose (mg/dL) 168 H (75-99) mg/dL Total Bilirubin (0.2-1.3) mg/dL AST (14-36) U/L ALT (4-34) U/L Alkaline Phosphatase (38-126) U/L Total Protein (6.3-8.2) g/dL Albumin (3.5-5.0) g/dL 05/26/20 05/26/20 05/26/20 Range/Units 11:15 11:15 11:15 RDW 17.4 H (11.5-15.5) % Plt Count 18 L* (150-450) k/uL Lymphocytes # 0.2 L (1.0-4.8) k/uL Haptoglobin (31.2-198.0) mg/dL D-Dimer 0.74 H (<0.60) mg/L FEU Sodium 128 L (137-145) mmol/L Chloride 83 L (98-107) mmol/L Carbon Dioxide 39 H (22-30) mmol/L BUN 46 H (7-17) mg/dL Glucose 109 H (74-99) mg/dL POC Glucose (mg/dL) (75-99) mg/dL Total Bilirubin 1.7 H (0.2-1.3) mg/dL AST 95 H (14-36) U/L ALT 216 H (4-34) U/L Alkaline Phosphatase 221 H (38-126) U/L Total Protein 5.4 L (6.3-8.2) g/dL Albumin 2.9 L (3.5-5.0) g/dL 05/26/20 05/26/20 05/26/20 Range/Units 11:36 16:13 20:32 RDW (11.5-15.5) % Plt Count (150-450) k/uL Lymphocytes # (1.0-4.8) k/uL Haptoglobin (31.2-198.0) mg/dL D-Dimer (<0.60) mg/L FEU Sodium (137-145) mmol/L Chloride (98-107) mmol/L Carbon Dioxide (22-30) mmol/L BUN (7-17) mg/dL Glucose (74-99) mg/dL POC Glucose (mg/dL) 115 H 216 H 175 H (75-99) mg/dL Total Bilirubin (0.2-1.3) mg/dL AST (14-36) U/L ALT (4-34) U/L Alkaline Phosphatase (38-126) U/L Total Protein (6.3-8.2) g/dL Albumin (3.5-5.0) g/dL Assessment and Plan Assessment: Acute Covid-19 pneumonia, status post convalescent plasma, received tocilizumab, completed Remdesevir Acute hypoxic respiratory failure secondary to the above,BiPAP dependent. DIC Hyponatremia, hypovolemic, suspect diuretic induced Acute anxiety secondary to the above and BiPAP mask, improved leukopenia, lymphopenia and thrombocytopenia secondary to above. Low grade DIC as per hematology, status post cryoprecipitate Hit antibodies negative Diabetes mellitus type 2 Hypertension Hyperlipidemia Hypothyroidism Morbid obesity, BMI 47 Plan: Continue on current medication regimen, monitoring and symptomatic treatment. Chest x-ray and labs pending .lisinopril for HTN. COVID cocktail. Lovenox remains on hold related to thrombocytopenia. Close monitoring for bleeding with labs ordered for a.m. Levemir increased, close monitoring of Accu-Cheks. Prognosis guarded given multiple complex medical issues. Time with Patient: Greater than 30
[2020-05-27 06:50] LABS: Glucose,Whole Blood 193 mg/dL (75-99)
[2020-05-27] MEDS: GLIMEPIRIDE 4 MG TAB PO SCH (06:55)
[2020-05-27] MEDS: PANTOPRAZOLE 40 MG TABLET PO SCH ×2 (06:55→17:38)
[2020-05-27] MEDS: INSULIN ASPART (NovoLOG) 100 UNIT/ML VIAL SQ SCH ×7 (06:55→20:51)
[2020-05-27] MEDS: metFORMIN 500 MG TAB PO SCH ×3 (06:55→17:39)
[2020-05-27] MEDS: LEVOTHYROXINE 75 MCG TAB PO SCH (06:55)
--- NOTE | 2020-05-27 08:39 | XR ---
EXAMINATION TYPE: XR chest 1V portable DATE OF EXAM: 05/27/2020 Comparison: 05/26/2020 Clinical History: 59-year-old female covid Findings: Heart borderline in size. Bilateral patchy airspace opacities, increased in the interval. No pleural effusion. Low lung volumes. Impression: Hypoventilatory changes and increasing bilateral airspace disease.
[2020-05-27] MEDS: GABAPENTIN 300 MG CAP PO SCH ×4 (09:12→20:52)
[2020-05-27] MEDS: ZINC SULFATE 220 MG CAP PO SCH (09:12)
[2020-05-27] MEDS: methylPREDNISolone SOD SUCCI 40 MG/ML 1 ML VIAL IV SCH ×2 (09:12→20:51)
[2020-05-27] MEDS: ASCORBIC ACID 500 MG TAB PO SCH (09:12)
[2020-05-27] MEDS: FERROUS SULFATE 325 MG TAB PO SCH (09:13)
[2020-05-27] MEDS: ATORVASTATIN 40 MG TAB PO SCH (09:13)
[2020-05-27] MEDS: allopurinoL 100 MG TAB PO SCH (09:13)
[2020-05-27] MEDS: CYANOCOBALAMIN 500 MCG TAB PO SCH (09:13)
[2020-05-27] MEDS: lisinopriL 10 MG TAB PO SCH (09:13)
[2020-05-27] MEDS: ESCITALOPRAM 20 MG TAB PO SCH (09:13)
[2020-05-27] MEDS: CHOLECALCIFEROL 25 MCG (1000 IU) TABLET PO SCH (09:13)
[2020-05-27] MEDS: SENNOSIDES-DOCUSATE SODIUM 1 EACH TAB PO SCH (09:13)
[2020-05-27] MEDS: ACETAMINOPHEN TAB 500 MG TAB PO PRN (09:26)
[2020-05-27] MEDS: MAG HYDROX/AL HYDROX/SIMETH 30 ML CUP PO SCH ×4 (09:27→20:51)
[2020-05-27 09:32] LABS: Anisocytosis Slight; Basophils % (A) 0 %; Eosinophils # (A) 0.1 k/uL (0-0.7); Eosinophils % (A) 2 %; HCT 35.3 % (34.0-46.0); HGB 12.6 gm/dL (11.4-16.0); Lymphocytes # (A) 0.3 k/uL (1.0-4.8); Lymphocytes % (A) 7 %; MCH 30.9 pg (25.0-35.0); MCHC 35.6 g/dL (31.0-37.0); MCV 86.6 fL (80.0-100.0); Mean Platelet Volume 10.3; Monocytes # (A) 0.1 k/uL (0-1.0); Monocytes % (A) 3 %; Neutrophils # (A) 3.7 k/uL (1.3-7.7); Neutrophils % (A) 87 %; RBC 4.08 m/uL (3.80-5.40); RDW 17.4 % (11.5-15.5); WBC 4.3 k/uL (3.8-10.6)
[2020-05-27 09:37] LABS: Platelet Count 19 k/uL (150-450)
[2020-05-27 09:46] LABS: ALT 218 U/L (4-34); AST 97 U/L (14-36); African American GFR (CKD) >90 (>60 ml/min/1.73 sqM); Albumin 2.7 g/dL (3.5-5.0); Alkaline Phosphatase 229 U/L (38-126); Blood Urea Nitrogen 51 mg/dL (7-17); C Reactive Protein 0.8 mg/dL (<1.0); Calcium 8.5 mg/dL (8.4-10.2); Chloride 82 mmol/L (98-107); Glucose 166 mg/dL (74-99); Magnesium 2.9 mg/dL (1.6-2.3); Non-African American GFR(CKD) 86 (>60 ml/min/1.73 sqM); Sodium 127 mmol/L (137-145); Total Bilirubin 1.6 mg/dL (0.2-1.3)
[2020-05-27 09:51] LABS: Anion Gap 7 mmol/L
[2020-05-27 09:52] LABS: D-Dimer 0.65 mg/L FEU (<0.60)
[2020-05-27 09:56] LABS: Carbon Dioxide 38 mmol/L (22-30)
[2020-05-27 11:47] LABS: Glucose,Whole Blood 110 mg/dL (75-99)
--- NOTE | 2020-05-27 15:01 | P.PN ---
Subjective Progress Note Date: 05/27/20 Principal diagnosis: Acute hypoxic respiratory failure secondary to acute covid 19 pneumonia 79-year-old female patient, morbidly obese with a BMI of 47, was hospitalized for COVID 19 related pneumonia. The patient currently is hypoxic on 3 L of oxygen by nasal cannula. She has comorbidities including obesity with a BMI of 47, hypertension, diabetes mellitus and gout. She also has hyperlipidemia and hypothyroidism. The patient started getting symptoms approximately a week ago, on 04/28/2020 and the patient was diagnosed having Covid 19 infection for a primary care physician's office on 04/29.. She continued to have episodes of fever and subsequently she became progressively more short of breath necessitating emergency department visitation today and ultimately she was hospitalized. Her chest x-ray showing bilateral pulmonary infiltrates peripheral distribution more so on the right compared to the left. The patient was started on steroids.. She is slightly nauseated. She also has loss of taste and smell LDH level is currently at 802 with a CRP of 55 and she had a lactic acid level of 2.1 at the time of admission. There d-dimer is still pending for now. Her white cell count is at 1.4 and the patient is lymphopenic with a lymphocyte count of 0.6 and there is also a drop in her platelet count down to 80 and these are all manifestations of COVID 19 infection. On today's evaluation of 04/27/2020, the patient's oxygenation has gotten worse. I saw her in the emergency department yesterday and she was on 4 L. She progressively required higher oxygen flow and she went up to a high flow oxygen through the nasal cannula airvo which she feels a currently she is on a BiPAP at a pressure of 10/5 with an FiO2 of 100%. She is able to generate a tidal volume around 450-500. Respiratory rate is in the mid 30s low 40s. She feels well. She is in mild degree of respiratory distress. She is still able to converse and talk to her BiPAP mask. Her current pulse ox is 94%. 60 showing diffuse breath and pulmonary infiltrates consistent with Covid 19 related pneumonia. Her white cell count is still down at 1.2. Platelet count is at 70 now which is low. D-dimer is at 0.65, her LDH level is at 835 with a CRP of 56. She is on Decadron. I'm going to switch her to Solu-Medrol. She is currently taking REM should be considered for convalescent plasma and addition to Tocilizumab The patient is seen today 05/06/2020 in follow-up on the regular medical floor. She is currently sitting up in bed. Awake and alert in no acute distress. Cu rrently on BiPAP 10/5 and 100% FiO2. Current saturation 88%. Chest x-ray reveals mild, medically. Residual bilateral airspace disease. Improving compared to previous. This is day #3 of Remdesivir. She received convalescent plasma 1, tocilizumab. D-dimer 0.84. C-reactive protein 2.8. LDH 459. She remains on Decadron, IV Solu-Medrol, vitamin supplements. Patient was reevaluated today on 05/09/2020, remains on BiPAP, she is on 100%, O2 sats is 94%. Surprisingly, the patient seems to be doing well in spite of her significant O2 requirement and BiPAP. Patient received REM, she also received convalescent plasma and ACTEMRA. And so far does not seem to be making that significant turnaround and significant clinical improvement. CBC and basic metabolic profile are normal except for WBC count is 2.0 today. Patient was reevaluated today on 05/10/2020, still requiring significant amount of FiO2, she remains on BiPAP at 90% FiO2, she is on IPAP of 10 and EPAP of 5, and O2 saturation remains marginal. Clinically however the patient feels better breathing easier, and have d-dimer is not that significantly elevated but it is nonetheless abnormal. Hence I recommended a CT angiogram of the chest to be done today. Renal profile is normal. CBC continues to show leukopenia with WBC count of 2.0. Electrolytes are normal. Patient was reevaluated today on 05/11/2020, patient is basically about the same. Remains on BiPAP. Her FiO2 is still at 90%, and her O2 saturation is in the low 90s. Patient is on IPAP of 10 and EPAP of 5, seems to be very comfortable. CT angiogram of the chest yesterday showed bilateral interstitial infiltrates, no evidence of thromboembolic disease/pulmonary embolism. WBC count is 2.2 hemoglobin is 11.6. A left lites are normal renal profile is normal clinically the patient is fairly comfortable, however she is still requiring significant high FiO2. Reevaluated today on 05/12/2020, patient is feeling much better today, breathing a lot easier, she is now on 80% FiO2 remains on BiPAP with IPAP of 10 and EPAP of 5. But her FiO2 was cut down to 80%, and I will cut it down further to 70% and her O2 saturation seems to be significantly improved. Patient feels that she felt much better after the Lasix was given yesterday. I will recommend another dose of Lasix to be given today. Her CT angiogram of the chest yesterday questioned mild interstitial edema. However I felt it was all related to her underlying Covid 19 pneumonitis. Nonetheless Lasix was given, and clinically the patient felt better. Labs today were all reviewed she had WBC count of 2.3 hemoglobin 12.4 lites are normal renal profile remains normal. Progress note dated 05/13/2020. Currently, the patient remains on BiPAP, at 70%. She's feeling better today. She feels less short of breath. Her BiPAP settings are IPAP 10, and EPAP 5. I did tell the patient to move around when she is lying in bed. She should lie down on her right side, left side, supine, and if possible, try to prone herself. Current laboratory data includes a white count of 2, hemoglobin 11.7, hematocrit 35.2, platelet count 94,000. Sodium is 136, potassium 3.4, chlorides 101, CO2 33, anion gap 2, BUN [address], [address] angiogram on May 10 showed no evidence of pulmonary embolism, but did show moderately severe pulmonary interstitial edema/infiltrates. Progress note dated 05/14/2020. The patient remains on BiPAP at 70%. She feels much improved. Her IPAP of 10 and EPAP is fine. She's feeling much less short of breath. I did tell her to move around in bed, right side down, left side down, supine, and even on her stomach if she can. No new labs today to look at. No recent chest x-rays to evaluate either. Medications are appropriate at this time. CT angiogram from May 10 is reviewed. Progress note dated 05/15/2020. The patient remains on BiPAP, settings of IPAP 10, and EPAP of 5. She is on 70%. Her saturations are right around 90% or so. Despite that, the patient states that she is feeling much better. She has been moving around in bed. His been laying on her right side, left side, supine, even on her stomach at times. No new labs today other than a sodium of 137, potassium 4, chloride 98, CO2 34, anion gap 5, BUN 19, creatinine 0.67. The patient is seen today 05/16/2020 in follow-up on the selective care unit. She is currently resting fairly comfortably in bed. She is continued on BiPAP currently 10/5 and 70% FiO2. She is maintaining O2 saturations about 85-86%. Today she is feeling mostly tired and fatigued. Breathing is about the same. No better but no worse currently. She remains on IV Solu-Medrol, Lovenox, vitamin supplements. Blood glucose 146. The patient is seen today 05/17/2020 in follow-up on the selective care unit. She remains awake and alert in no acute distress. She is still requiring BiPAP support 10/5 and 80% FiO2 to maintain O2 saturations in the mid 80s. She's been afebrile. Hemodynamically stable. Chest x-ray reveals cardiomegaly, continued bilateral airspace disease, slightly worsened compared to previous. Sodium 133. Potassium 4.5. Creatinine 0.67. She remains on Lovenox, IV Solu-Medrol, v itamin supplements. The patient is seen today 05/19/2020 in follow-up on the selective care unit. She is currently sitting up at the bedside. Awake and alert in no acute distress. She is still on BiPAP 12/6 and 90% FiO2. White count 4.3. Hemoglobin 12.6. Platelet count dropped to 37,000. Lymphocytes 0.3. Sodium 133. Potassium 4.5. Creatinine 0.71. Remains on IV Solu-Medrol, vitamin s upplements. Lovenox which will be held. 05/20/2020 the patient is being seen for a follow-up. The patient remains on BiPAP at a pressure of 12/6 with an FiO2 of 90%. Remains on IV Solu-Medrol. She is awake and alert. She denies having any significant shortness of breath. Hemodynamically stable. She had prolonged hospitalization due to complications of Covid 19. She is a morbidly obese female patient with a BMI of 49. She was initially on 3 L about 2 by nasal cannula. She is known to have diabetes, gout and hypertension and hyperlipidemia and hypothyroidism. The patient was diagnosed on 04/28/2020 and since then her condition progressively decompensated. She was aggressively treated over the past 2 weeks here in the hospital and her blood work showing a component of thrombocytopenia, for that reason anticoagulation was held. The patient remains on IV Solu-Medrol. She is taking 60 mg IV every 6 hours. The last chest x-ray was done on May 17 the patient had bilateral lower lobe pulmonary infiltrates . Also, there is history drop in the platelet count which is down to 30. Her white second is at 2.5 with a hemoglobin of 11.7. Rest of the blood work essentially within normal limits. The latest chest x-ray was done on 05/09/2020. She is able to tolerate the BiPAP reasonably well. Her pulse ox is a mid 80s this morning. She is able to generate a tidal volume of IVC with a respiratory rate of 26 cm ventilation of 15. She is currently off Lovenox. She is not taking any antiplatelet agents. Levaquin is a 15 units a day along with 5 units with meals 3 times a day. She is also developing increased swelling in lower extremities On today's evaluation, the patient is being seen for follow-up for Covid 19 related pneumonia. The patient is still on BiPAP at a pressure of 12/6 with an FiO2 of 90%. Her pulse ox is around 91%. She is hemodynamically stable. The patient is morbidly obese and her current BMI is 49.7. Note that she progressively got worse and she end up on BiPAP therapy. She is on IV Solu Medrol 60 mg every 6 hours. Her chest x-ray showing some limited improvement from yesterday where the diaphragms were better visualized. She is able to tolerate the BiPAP well. On today's evaluation, the patient is generating a tidal volume of 750 and her current respiratory rate is in the order of 20-27. She had some increased swelling in lower extremity bilaterally and the patient was started on Lasix yesterday and the patient is a negative fluid balance of 750 mL over the past 24 hours. She is still has significant amount of edema and she remains on Lasix at a dose of 40 mg IV every 12 hours. Platelet count currently is down to 30. DIC profile was essentially negative. The inflammatory markers from yesterday were elevated. On 05/22/2020 currently the patient remains on BiPAP at a pressure of 12/6 with an FiO2 of 90%. Her saturations remained marginal. The patient is generating adequate tidal volumes of 570 on her machine. She was started on diuretics yesterday and the patient has been negative fluid balance of 2 L over the past 24 hours. She is awake and calm and comfortable. She wasn't having issues with thrombocytopenia. The platelet count today is 23. Hematology is going to evaluate the patient. The coagulation profile is within normal limits. LDH level is at 1590 with a CRP of less than 5. She is awake and alert. She is following commands and answering questions face is able to take sips of soup and oatmeal. She is resting comfortably in bed. She remains on IV Solu-Medrol. She is also on Lasix 40 mg IV every 12 hours. She is also on Levemir insulin 15 units along with a prescription coverage. No anticoagulation for now because of her underlying thrombocytopenia. On 05/23/2020 I'm seeing the patient for a follow-up. She is awake and alert. She still on a BiPAP at a pressure of 12/6 cm of water. She has also an FiO2 of 90%. Overall, she is awake and alert and she is following commands and answering questions. She remains in good spirits she is calm and comfortable. No new complaints pH remains on IV Solu-Medrol. She also on Lasix 40 mg every 12 hours. Her platelet counts are still low at 19,000. The patient was seen by hematology. The patient was given units of cryoprecipitate yesterday. In terms of her pulmonary status, the patient is stable. The patient is not having any signs of bleeding. She is unable to tolerate some oral intake. In terms of her inflammatory markers, the levels are still up with an LDH level of 161, CRP of less than 5. Her AHI the antibodies came back negative. Rest of the blood work is all within normal limits. I will see her condition essentially unchanged compared to yesterday. In terms of her blood sugar control, the patient is on Levemir insulin 15 units in addition to NovoLog 5 units with meals and a sliding scale coverage. No chest x-ray from today. Her last chest x-ray was from yesterday. 05/24/2020, the patient remains on BiPAP 12/6 with an FiO2 of 90%. She is on IV Solu-Medrol. Platelet counts remain unchanged at 19,000. Her blood work from today shows some mild transaminitis. LDH level is 1541, nor and the CRP level is less than 5, lower. The white cell count is at 4 with a hemoglobin of 12.8. No new complaints pH is able to communicate. She is tolerating diet. No nausea. No vomiting. No diarrhea. No abdominal pain. She is on Levemir insulin 20 units along with NovoLog 5 units with meals and a sliding scale coverage. Her current pulse ox is 88%. Unable to wean her off the BiPAP for now. Chest x-ray showing some limited improvement in aeration of the lungs bilaterally. On examination, she continues to have some crackles. She does have some underlying cardiomegaly on the chest x-ray and the lower lobe pulmonary infiltrates have slightly improved on the most recent chest x-ray was done today. Spray Worker of the case regarding the thrombocytopenia. Cardiology is also on the case regarding hypertension. She is currently on a combination of lisinopril and hydrochlorothiazide. 05/25/2020 the patient remains on 12/6 BiPAP with an FiO2 of 90%. She remains BiPAP dependent and her current pulse ox is around 90% and she is unable to wean off her FiO2. No significant tachypnea. Her respiratory rate currently is at mid 20s and her tidal volumes above 450. She is having some discomfort in her chest probably related to some heartburn. Oral intake is minimal and the pina ent is basically taking shakes and soft diet. Her platelet count today is down to 18. Hematology is monitoring this and the recommendations is to transfuse this patient with platelets under 15 K and some cryoprecipitate once the fibrinogen under 100.. The patient is not having any bleeding complications for now. On her blood work, she has a sodium of 129 and the renal function is stable. Her LFTs are still abnormal and she has some mild chest and pneumonitis. LDH is 1438 and the CRP level is less than 5. D-dimer from yesterday was 0.7. No recent chest x-ray from today. The chest x-ray from yesterday was showing bilateral pulmonary infiltrates more so in the lung bases more so on the left. As far as treatment, she remains on IV Solu-Medrol 60 mg every 6 hours and she is also on Lasix 40 mg on a daily basis to maintain her fluid balance. 2020, patient remains on BiPAP with an FiO2 of 100% and the pressures of 12/6. Current pulse ox is around 90%. Afebrile. Hemodynamically stable. Continues to have a respiratory rate in the mid 20s. She is very much tolerant to the BiPAP and she has limited reserve as the patient desaturates with coughing, talking, movement, etc. She is still trying to keep on with her nutrition through shakes and the patient is also eating. The inflammatory markers are still pending for today. The LDH from yesterday was 1438 and the CRP was 5.4 and as such the LDH level continues to be elevated. D-dimer is low at 0.5. Platelet count is at 19 and hematology is on the case. No platelet transfusions unless her platelet count is less than 15,000 per hematology. Otherwise, no other significant events. The patient remains on IV Solu-Medrol. She is currently at a dose of 40 mg every 12 hours of the patient's other medical dose was tapered yesterday. She has been the hospital for more than 3 weeks and she's been on steroids since. Most recent chest x-ray from today showing stable bilateral pulmonary infiltrates and the infiltrates are diffuse involving the upper and lower lobes bilaterally. Lung volumes are essentially small. She is also on Lasix once daily and we stopped her hydrochlorothiazide. Her sodium level today is pending, from yesterday was 129, she does have some ongoing transaminitis. Patient was reevaluated today on 05/27/2020, remains on BiPAP. 100% FiO2, with IPAP of 12 and EPAP of 6, and her O2 saturation remains marginal. Patient looks comfortable. Chest x-ray continues to show bilateral patchy infiltrates, not severe enough to explain all her profound hypoxemia. Hence I am recommending a CT angiogram on this patient to rule out the possibility of pulmonary embolism. D-dimer is borderline elevated. Patient cannot go on heparin because of her platelets, however if we need to give her heparin, will place the patient on argatroban CBC is relatively normal otherwise. Her sodium remains low at 127, remains on fluid restrictions, and at times she received diuretics. Her creatinine today is 0.77 liver enzymes remain elevated with AST of 97 ALT of 218 and alkaline phosphatase of 229 Objective - Vital Signs Vital signs: Vital Signs Temp 97.6 F 05/27/20 09:10 Pulse 80 05/27/20 14:00 Resp 18 05/27/20 14:00 BP 101/57 05/27/20 12:41 Pulse Ox 90 L 05/27/20 12:41 Intake & Output 05/26/20 05/27/20 05/27/20 18:59 06:59 18:59 Intake Total 773 125 Output Total 800 200 600 Balance - -475 Weight 131.5 kg Intake: Oral 773 125 Output: Urine 800 200 600 Other: Voiding Method Indwelling Catheter Indwelling Catheter Indwelling Catheter - Exam Physical Exam: Revealed a 59-year-old female on BiPAP, 100 percent FiO2, IPAP of 10 EPAP of 6 Head: Is atraumatic normocephalic. HEENT:[Neck is supple.] [No neck masses.] [No thyromegaly.] [No JVD.] Chest: [Symmetrical chest expansion, crackles at the bases bilaterally. Cardiac Exam: [Normal S1 and S2, no S3 gallop, no murmur.] Abdomen: [Soft, nontender, no megaly, no rebound, no guarding, normal bowel sounds.] Extremities: [No clubbing, no edema, no cyanosis.] Neurological Exam: [No focal neurologic deficit.] Alert and oriented 3. Psychiatric: Normal mood affect and normal mental status examination. - Labs CBC & Chem 7: 05/27/20 08:41 05/27/20 08:41 Labs: Abnormal Lab Results - Last 24 Hours (Table) 05/26/20 05/26/20 05/27/20 Range/Units 16:13 20:32 06:48 RDW (11.5-15.5) % Plt Count (150-450) k/uL Lymphocytes # (1.0-4.8) k/uL D-Dimer (<0.60) mg/L FEU Sodium (137-145) mmol/L Chloride (98-107) mmol/L Carbon Dioxide (22-30) mmol/L BUN (7-17) mg/dL Glucose (74-99) mg/dL POC Glucose (mg/dL) 216 H 175 H 193 H (75-99) mg/dL Magnesium (1.6-2.3) mg/dL Total Bilirubin (0.2-1.3) mg/dL AST (14-36) U/L ALT (4-34) U/L Alkaline Phosphatase (38-126) U/L Total Protein (6.3-8.2) g/dL Albumin (3.5-5.0) g/dL 05/27/20 05/27/20 05/27/20 Range/Units 08:41 08:41 08:41 RDW 17.4 H (11.5-15.5) % Plt Count 19 L* (150-450) k/uL Lymphocytes # 0.3 L (1.0-4.8) k/uL D-Dimer 0.65 H (<0.60) mg/L FEU Sodium 127 L (137-145) mmol/L Chloride 82 L (98-107) mmol/L Carbon Dioxide 38 H (22-30) mmol/L BUN 51 H (7-17) mg/dL Glucose 166 H (74-99) mg/dL POC Glucose (mg/dL) (75-99) mg/dL Magnesium 2.9 H (1.6-2.3) mg/dL Total Bilirubin 1.6 H (0.2-1.3) mg/dL AST 97 H (14-36) U/L ALT 218 H (4-34) U/L Alkaline Phosphatase 229 H (38-126) U/L Total Protein 5.0 L (6.3-8.2) g/dL Albumin 2.7 L (3.5-5.0) g/dL 05/27/20 Range/Units 11:26 RDW (11.5-15.5) % Plt Count (150-450) k/uL Lymphocytes # (1.0-4.8) k/uL D-Dimer (<0.60) mg/L FEU Sodium (137-145) mmol/L Chloride (98-107) mmol/L Carbon Dioxide (22-30) mmol/L BUN (7-17) mg/dL Glucose (74-99) mg/dL POC Glucose (mg/dL) 110 H (75-99) mg/dL Magnesium (1.6-2.3) mg/dL Total Bilirubin (0.2-1.3) mg/dL AST (14-36) U/L ALT (4-34) U/L Alkaline Phosphatase (38-126) U/L Total Protein (6.3-8.2) g/dL Albumin (3.5-5.0) g/dL Assessment and Plan Assessment: 1 acute Covid 19 related pneumonia, and ARDS. symptoms started on 04/28/2020, diagnosed to be positive on 04/29/2020 receivedrem,toci, and convalescent plasma 2 acute hypoxic respiratory failure secondary to above 3 fever secondary to above, resolved. 4 leukopenia, lymphopenia and thrombocytopenia secondary to above 5 elevation of inflammatory markers secondary to Covid 19 infection 6 obesity with a BMI of 47.0 7 diabetes mellitus type 2 8 hypertension 9 hyperlipidemia 10 hypothyroidism Recommendation: Continue BiPAP. And titrate accordingly. CT angiogram of the chest. Continue multivitamins. Patient received all the different treatments for COVID-19 pneumonia. As noted above. Negative hit antibodies noted. Continue to hold Lovenox. Last venous Doppler was negative. Continue Lasix Continue BiPAP Prognosis is definitely poor and guarded. We'll continue to follow. No plans to discharge the patient anytime soon Time with Patient: Less than 30
--- NOTE | 2020-05-27 15:25 | P.PN ---
Subjective Progress Note Date: 05/27/20 [id number] female admitted with acute hypoxic respiratory failure secondary to covid- 19 pneumonia, hypertension, diabetes mellitus, obesity and multiple other medical issues. Oxygen requirements worsened, requiring BiPAP. Chest x-ray reporting bilateral interstitial and patchy airspace opacities remain ,mild cardiomegaly. Denies chest pain, palpitations, reports chest soreness from nonproductive cough. Received a dose of Actemra, maintained on Remdesevir, IV steroids , antibiotics and multivitamin supplements. Afebrile, LDH and C- reactive protein trending down. 05/07/2020 Maintained on Remdesevir/covid regimine. Continues to require BiPAP 100% to maintain O2 sats in the high 80s to 90s. Complains of anxiety regarding mask. Deep breaths trigger cough. Afebrile. Labs pending. Denies chest pain, palpitations. 05/08/2020 sitting up at side of bed, continues to require 100% BiPAP. Ma intained on Covid regimen including Remdesevir. T-max 99.1. Occasional nonproductive cough. Denies chest pain, 05/09/20 unable to tolerate BiPAP decreased to 90% with O2 sats decreased to 84%, currently back up on 100% BiPAP, maintaining O2 sats in the 90s on 100s. T-max 99.1, labs pending. Anxiety controlled. Maintained on Covid regimen, completed 5 doses of Remdesevir. Labs pending. 05/10/2020 maintaining O2 sats in the low 90s on 95% BiPAP. Continues on IV steroids, vitamin C, vitamin D, zinc. Afebrile. Reports less coughing. Denies chest pain, palpitations. 05/13/2020 patient feeling better, reports she has " turned the corner". Maintaining O2 sats in the 90s on BiPAP 70%. Minimal nonproductive cough. Denies chest pain, palpitations. Afebrile, Received Lasix yesterday, potassium 3.4.,creatinine 0.69. 05/14/2020 continues feeling better, maintaining O2 sats in the 90s on BiPAP 70%. Occasional nonproductive cough. Mild pedal edema. Denies chest pain, palpitations. 05/15/2020 maintaining O2 sats in the low 90s on 70% BiPAP. Received Lasix yesterday, less pedal edema, renal function stable. Breathing easier. Blood sugars controlled. 05/16/2020 maintaining O2 sats in the low 90s on nonrebreather and high flow airvo. Afebrile, sodium trending down, 123, creatinine 1.8. Continues to feel better and reporting less shortness of breath. 05/17/2020 80% BiPAP, maintaining O2 sats in the 90s. Reports last night she tolerated 15 minutes on 15 L high flow nasal cannula plus nonrebreather mask .Nonproductive cough. Less tired, reports more energy. Blood sugars controlled. Denies chest pain, palpitations. Afebrile. 05/20/2020 maintained on BiPAP 90%, maintaining O2 sats in the high 80s to low 90s. Hemoglobin 11.7, Platelets decreased to 30, currently off of Lovenox .Afebrile, WBC 2.9. Chest x-ray pending. 05/21/2020 continues on BiPAP 90% maintaining O2 sats in the high 80s. Reports that well, feels good. Afebrile. Yesterday's x-ray reported persistent low lung volumes, cardiomegaly, bilateral multifocal opacity is consistent with Covid 19 infectionno significant change. Doppler reported Bilateral lower extremities negative for DVT. Diuresing well on Lasix IV push with 24-hour I&O reflecting a negative fluid balance. BUN 25, creatinine 0.7. Hit antibodies pending. 05/22/2020 maintaining O2 sats of 87 to low 90s on 90% BiPAP. Diuresing well on Lasix IV push with 24-hour I&O reflecting a negative fluid balance. BUN 27/creatinine 0.73. Hemoglobin 13.5, platelets 23-anticoagulation remains on hold. Hematology consult in place, recommendations pending. Reports sleeping well with no shortness of breath. Afebrile, normal WBC. 05/23/2020 remains on same BiPAP settings of 90% maintaining O2 sats of 90. in October she was referred to hematology/Dr. Carrion further workup regarding pancytopenia. Bone marrow was completed and was told it was fine and that she had iron deficient anemia and needed to proceed with iron transfusions. Reports she did not have a chance to start the transfusions prior to being hospitalized with Covid. Platelets currently 19 without evidence of bleeding, no petechiae .evaluated by hematology yesterday with recommendations noted and appreciated. Received transfusion of cryoprecipitate with fibrinogen up to 158. 05/24/2020 continues on BiPAP 90% to maintain O2 sats in the high 80s to low 90s. Chest x-ray pending. Telemetry sinus rhythm. hypertensive this morning, hydrochlorothiazide added to med regimen. Labs pending. Good diet intake .Hyperglycemic, blood sugars ranging from 160s to 220. 05/27/2020 maintained on 100% BiPAP, with O2 sats of low 90s. Chest x-ray reporting increasing bilateral airspace disease, hypoventilatory changes. D- dimer 0.65. CTA ordered. Hemoglobin 12.6, platelets 19. Sodium 127, on fluid restrictions. BUN 51, creatinine 0.77. T bili and LFTs remain elevated. C- reactive protein 0.8 Objective - Vital Signs Vital signs: Vital Signs Temp 97.6 F 05/27/20 09:10 Pulse 80 05/27/20 14:00 Resp 18 05/27/20 14:00 BP 101/57 05/27/20 12:41 Pulse Ox 90 L 05/27/20 12:41 Intake & Output 05/26/20 05/27/20 05/27/20 18:59 06:59 18:59 Intake Total 773 125 Output Total 800 200 600 Balance -27 -200 -311 Weight 131.5 kg Intake: Oral 773 125 Output: Urine 800 200 600 Other: Voiding Method Indwelling Catheter Indwelling Catheter Indwelling Catheter - Exam PHYSICAL EXAM: VITAL SIGNS: [As above] GENERAL: Alert and oriented 3, Sitting up in bed wearing BiPAP,NAD, tired appearing HEENT: Conjunctivae normal. eyes normal. CARDIOVASCULAR: S1, S2 regular.No murmur RESPIRATION: Diminished bases with bibasilar crackles ABDOMEN: Soft, nontender,nondistended.+BS, No guarding, no masses palpable. LEGS: no edema, no cyanosis, no clubbing. No calf pain. NERVOUS SYSTEM: Cranial N 2-12 grossly normal.No focal deficits. Skin: Warm and dry, no rash - Labs CBC & Chem 7: 05/27/20 08:41 05/27/20 08:41 Labs: Abnormal Lab Results - Last 24 Hours (Table) 05/26/20 05/26/20 05/27/20 Range/Units 16:13 20:32 06:48 RDW (11.5-15.5) % Plt Count (150-450) k/uL Lymphocytes # (1.0-4.8) k/uL D-Dimer (<0.60) mg/L FEU Sodium (137-145) mmol/L Chloride (98-107) mmol/L Carbon Dioxide (22-30) mmol/L BUN (7-17) mg/dL Glucose (74-99) mg/dL POC Glucose (mg/dL) 216 H 175 H 193 H (75-99) mg/dL Magnesium (1.6-2.3) mg/dL Total Bilirubin (0.2-1.3) mg/dL AST (14-36) U/L ALT (4-34) U/L Alkaline Phosphatase (38-126) U/L Total Protein (6.3-8.2) g/dL Albumin (3.5-5.0) g/dL 05/27/20 05/27/20 05/27/20 Range/Units 08:41 08:41 08:41 RDW 17.4 H (11.5-15.5) % Plt Count 19 L* (150-450) k/uL Lymphocytes # 0.3 L (1.0-4.8) k/uL D-Dimer 0.65 H (<0.60) mg/L FEU Sodium 127 L (137-145) mmol/L Chloride 82 L (98-107) mmol/L Carbon Dioxide 38 H (22-30) mmol/L BUN 51 H (7-17) mg/dL Glucose 166 H (74-99) mg/dL POC Glucose (mg/dL) (75-99) mg/dL Magnesium 2.9 H (1.6-2.3) mg/dL Total Bilirubin 1.6 H (0.2-1.3) mg/dL AST 97 H (14-36) U/L ALT 218 H (4-34) U/L Alkaline Phosphatase 229 H (38-126) U/L Total Protein 5.0 L (6.3-8.2) g/dL Albumin 2.7 L (3.5-5.0) g/dL 05/27/20 Range/Units 11:26 RDW (11.5-15.5) % Plt Count (150-450) k/uL Lymphocytes # (1.0-4.8) k/uL D-Dimer (<0.60) mg/L FEU Sodium (137-145) mmol/L Chloride (98-107) mmol/L Carbon Dioxide (22-30) mmol/L BUN (7-17) mg/dL Glucose (74-99) mg/dL POC Glucose (mg/dL) 110 H (75-99) mg/dL Magnesium (1.6-2.3) mg/dL Total Bilirubin (0.2-1.3) mg/dL AST (14-36) U/L ALT (4-34) U/L Alkaline Phosphatase (38-126) U/L Total Protein (6.3-8.2) g/dL Albumin (3.5-5.0) g/dL Assessment and Plan Assessment: Sepsis, present on admission secondary to Acute Covid-19 pneumonia, status post convalescent plasma, received tocilizumab, completed Remdesevir Acute hypoxic respiratory failure secondary to the above,BiPAP dependent. Hyponatremia, hypovolemic, suspect diuretic induced Acute anxiety secondary to the above and BiPAP mask, improved leukopenia, lymphopenia and thrombocytopenia secondary to above. Low grade DIC as per hematology, status post cryoprecipitate Hit antibodies negative Diabetes mellitus type 2 Hypertension Hyperlipidemia Hypothyroidism Morbid obesity, BMI 47 Plan: Continue on current medication regimen, monitoring and symptomatic treatment. CTA pending.COVID cocktail. Lovenox remains on hold related to thrombocytopenia.Close monitoring for bleeding with labs ordered for a.m. Prognosis guarded given multiple complex medical issues. The impression and plan of care has been dictated as directed. : I performed a history and examination of this patient, discussed the same with the dictator. I agree with the dictator's note ,documented as a scribe. Any additional findings or plans will be noted.
--- NOTE | 2020-05-27 16:00 | CT ---
EXAMINATION TYPE: CT chest angio for PE DATE OF EXAM: 05/27/2020 COMPARISON: Chest x-ray earlier today and older x-rays. CTA chest May 10, 2020 HISTORY: PE CT DLP: 1376.6 mGycm Automated exposure control for dose reduction was used. CONTRAST: CT Chest for pulmonary embolism performed with with IV Contrast, patient injected with 100 mL of Isov ue 370. FINDINGS: Suboptimal study due to patient's large body habitus. LUNGS: Exam is suboptimal as there is respiratory motion artifact degradation, patient unable to hold breath. Persistent low lung volumes with multifocal and confluent areas of groundglass opacity and o rganizing consolidations greatest in the lower lungs with interval progression from prior CT. No sign ificant pleural effusion or pneumothorax seen bilaterally. MEDIASTINUM: Persistent cardiomegaly. Suboptimal study with contrast summary left heart systems. No t horacic aortic aneurysm or dissection. No obvious acute pulmonary embolism. Evaluation of smaller seg mental and subsegmental branches is suboptimal due to the heterogeneity. OTHER: Surgical changes from gastric sleeve redemonstrated. Cholecystectomy clips are redemonstrated .. IMPRESSION: Suboptimal study without significant central pulmonary embolism, cannot entirely exclude smaller segmental and subsegmental PE on this study. Worsening bilateral multifocal and confluent todd undglass opacities and organizing consolidations consistent with covid-19 infection progression.
[2020-05-27 17:15] LABS: Glucose,Whole Blood 164 mg/dL (75-99)
--- NOTE | 2020-05-27 18:52 | P.PN ---
Subjective Progress Note Date: 05/27/20 Principal diagnosis: Sepsis, Respiratory failure, DIC Platelets remain decreased, yet stable at 19K, no signs of bleeding at this time. DIC stable labs. LFTs are remaining elevated. Likely secondary to medication and illness, imaging reasonable. Objective - Vital Signs Vital signs: Vital Signs Temp 97.6 F 05/27/20 09:10 Pulse 90 05/27/20 09:10 Resp 18 05/27/20 09:10 BP 112/55 05/27/20 09:10 Pulse Ox 89 L 05/27/20 09:10 Intake & Output 05/26/20 05/27/20 05/27/20 18:59 06:59 18:59 Intake Total 773 125 Output Total 800 200 Balance -27 -200 125 Weight 131.5 kg Intake: Oral 773 125 Output: Urine 800 200 Other: Voiding Method Indwelling Catheter Indwelling Catheter Indwelling Catheter - Exam - Constitutional General appearance: mild distress, morbidly obese - EENT Eyes: anicteric sclerae, EOMI ENT: hearing grossly normal - Respiratory Respiratory: bilateral: diminished - Cardiovascular Heart sounds: normal: S1, S2 leg Peripheral Edema: bilateral: Trace - Neurologic Neurologic: CNII-XII intact - Musculoskeletal Musculoskeletal: strength equal bilaterally - Psychiatric Psychiatric: A&O x's 3, appropriate affect, intact judgment & insight - Labs CBC & Chem 7: 05/27/20 08:41 05/27/20 08:41 Labs: Abnormal Lab Results - Last 24 Hours (Table) 05/26/20 05/26/20 05/26/20 Range/Units 11:15 16:13 20:32 RDW (11.5-15.5) % Plt Count (150-450) k/uL Lymphocytes # (1.0-4.8) k/uL D-Dimer (<0.60) mg/L FEU Sodium 128 L (137-145) mmol/L Chloride 83 L (98-107) mmol/L Carbon Dioxide 39 H (22-30) mmol/L BUN 46 H (7-17) mg/dL Glucose 109 H (74-99) mg/dL POC Glucose (mg/dL) 216 H 175 H (75-99) mg/dL Magnesium (1.6-2.3) mg/dL Total Bilirubin 1.7 H (0.2-1.3) mg/dL AST 95 H (14-36) U/L ALT 216 H (4-34) U/L Alkaline Phosphatase 221 H (38-126) U/L Total Protein 5.4 L (6.3-8.2) g/dL Albumin 2.9 L (3.5-5.0) g/dL 05/27/20 05/27/20 05/27/20 Range/Units 06:48 08:41 08:41 RDW 17.4 H (11.5-15.5) % Plt Count 19 L* (150-450) k/uL Lymphocytes # 0.3 L (1.0-4.8) k/uL D-Dimer 0.65 H (<0.60) mg/L FEU Sodium (137-145) mmol/L Chloride (98-107) mmol/L Carbon Dioxide (22-30) mmol/L BUN (7-17) mg/dL Glucose (74-99) mg/dL POC Glucose (mg/dL) 193 H (75-99) mg/dL Magnesium (1.6-2.3) mg/dL Total Bilirubin (0.2-1.3) mg/dL AST (14-36) U/L ALT (4-34) U/L Alkaline Phosphatase (38-126) U/L Total Protein (6.3-8.2) g/dL Albumin (3.5-5.0) g/dL 05/27/20 05/27/20 Range/Units 08:41 11:26 RDW (11.5-15.5) % Plt Count (150-450) k/uL Lymphocytes # (1.0-4.8) k/uL D-Dimer (<0.60) mg/L FEU Sodium 127 L (137-145) mmol/L Chloride 82 L (98-107) mmol/L Carbon Dioxide 38 H (22-30) mmol/L BUN 51 H (7-17) mg/dL Glucose 166 H (74-99) mg/dL POC Glucose (mg/dL) 110 H (75-99) mg/dL Magnesium 2.9 H (1.6-2.3) mg/dL Total Bilirubin 1.6 H (0.2-1.3) mg/dL AST 97 H (14-36) U/L ALT 218 H (4-34) U/L Alkaline Phosphatase 229 H (38-126) U/L Total Protein 5.0 L (6.3-8.2) g/dL Albumin 2.7 L (3.5-5.0) g/dL Assessment and Plan Plan: - Imaging and Cardiology Chest x-ray: report reviewed Assessment and Plan Thrombocytopenia: ITP versus DIC (disseminated intravascular coagulation) ITP following COVID infections has been documented in moderately to severe illn ess DIC 2/2 Covid/Sepsis infection. Monitor daily CBC, CMP, PT/PTT, Fibrinogen Maintain platelet count greater than 15K Cryoprecipitate Fibrinogen less than 100 Coags monitoring 19K today Increased LFTs: - Likely secondary to medication and Illness: - Monitor daily - Ultrasound Coronavirus infection - Per Pulmonology and ID - Best Supportive Care Acute Hypoxia Respiratory Failure Current Visit: Yes Status: Acute Code(s): R09.02 - HYPOXEMIA SNOMED Code(s): 092410982 Plan: HIT antibody negative. No aspirin, NSAIDs or anticoagulation for low platelet count. Daily CBC, CMP Platelets 19K MOnitor LFTs and COags
[2020-05-27 20:14] LABS: Glucose,Whole Blood 152 mg/dL (75-99)
[2020-05-27] MEDS: BACLOFEN 10 MG TAB PO SCH (20:51)
[2020-05-27] MEDS: INSULIN DETEMIR (LEVEMIR) 100 UNIT/ML SYR SQ SCH (20:51)
[2020-05-28 06:18] LABS: Glucose,Whole Blood 156 mg/dL (75-99)
[2020-05-28 07:54] LABS: Glucose,Whole Blood 170 mg/dL (75-99)
[2020-05-28] MEDS: ASCORBIC ACID 500 MG TAB PO SCH (08:16)
[2020-05-28] MEDS: ZINC SULFATE 220 MG CAP PO SCH (08:16)
[2020-05-28] MEDS: GABAPENTIN 300 MG CAP PO SCH ×4 (08:16→20:38)
[2020-05-28] MEDS: ATORVASTATIN 40 MG TAB PO SCH (08:16)
[2020-05-28] MEDS: FERROUS SULFATE 325 MG TAB PO SCH (08:16)
[2020-05-28] MEDS: ESCITALOPRAM 20 MG TAB PO SCH (08:16)
[2020-05-28] MEDS: lisinopriL 10 MG TAB PO SCH (08:16)
[2020-05-28] MEDS: allopurinoL 100 MG TAB PO SCH (08:16)
[2020-05-28] MEDS: LEVOTHYROXINE 75 MCG TAB PO SCH (08:16)
[2020-05-28] MEDS: metFORMIN 500 MG TAB PO SCH ×3 (08:17→17:47)
[2020-05-28] MEDS: CHOLECALCIFEROL 25 MCG (1000 IU) TABLET PO SCH (08:17)
[2020-05-28] MEDS: CYANOCOBALAMIN 500 MCG TAB PO SCH (08:17)
[2020-05-28] MEDS: SENNOSIDES-DOCUSATE SODIUM 1 EACH TAB PO SCH (08:17)
[2020-05-28] MEDS: methylPREDNISolone SOD SUCCI 40 MG/ML 1 ML VIAL IV SCH ×2 (08:17→20:39)
[2020-05-28] MEDS: PANTOPRAZOLE 40 MG TABLET PO SCH ×2 (08:17→17:47)
[2020-05-28] MEDS: MAG HYDROX/AL HYDROX/SIMETH 30 ML CUP PO SCH ×4 (08:17→20:40)
[2020-05-28] MEDS: INSULIN ASPART (NovoLOG) 100 UNIT/ML VIAL SQ SCH ×7 (08:17→20:40)
--- NOTE | 2020-05-28 08:20 | US ---
EXAMINATION TYPE: US abdomen limited DATE OF EXAM: 05/28/2020 COMPARISON: CT 05/27/2020 CLINICAL HISTORY: increasing LFTs. Ordered as abdomen complete, tech change charge due to inability to view left side, see limitations b pricila. EXAM MEASUREMENTS: Liver Length: 17.0 cm Gallbladder Wall: Surgically absent CBD: 0.3 cm Right Kidney: 10.9 x 4.4 x 4.3 cm Gross morbid obesity, patient on 2 breathing machines, high O2, unable to move, unable to hold her br eath. Pancreas: Obscured by bowel gas Liver: minimal views, measures upper limits in size, liver is somewhat heterogeneous in echotexture Gallbladder: Surgically absent Evidence for sonographic Ragsdale's sign: no CBD: wnl as seen, limited visualization Right Kidney: wnl as seen, very limited visualization, no evident hydronephrosis, cortical medullar y differentiation appears maintained There is no ascites evident. IMPRESSION: Exam is limited technically, entire abdomen was not performed. Correlate for possible hep atic steatosis, hepatocellular disease. Postop changes.
[2020-05-28] MEDS: GLIMEPIRIDE 4 MG TAB PO SCH (08:53)
[2020-05-28 10:06] LABS: INR 1.1 (<1.2); Prothrombin Time 11.2 sec (9.0-12.0)
[2020-05-28 10:09] LABS: ALT 210 U/L (4-34); AST 94 U/L (14-36); African American GFR (CKD) >90 (>60 ml/min/1.73 sqM); Albumin 2.6 g/dL (3.5-5.0); Alkaline Phosphatase 227 U/L (38-126); Anion Gap 3 mmol/L; Blood Urea Nitrogen 44 mg/dL (7-17); Calcium 8.4 mg/dL (8.4-10.2); Carbon Dioxide 39 mmol/L (22-30); Chloride 84 mmol/L (98-107); Glucose 128 mg/dL (74-99); Non-African American GFR(CKD) >90 (>60 ml/min/1.73 sqM); Partial Thromboplastin Time 21.2 sec (22.0-30.0); Potassium 3.7 mmol/L (3.5-5.1); Sodium 126 mmol/L (137-145); Total Bilirubin 1.7 mg/dL (0.2-1.3); Total Protein 5.1 g/dL (6.3-8.2)
[2020-05-28 10:15] LABS: Anisocytosis Slight; Basophils % (A) 0 %; Eosinophils % (A) 1 %; HCT 36.4 % (34.0-46.0); HGB 12.1 gm/dL (11.4-16.0); Lymphocytes # (A) 0.3 k/uL (1.0-4.8); Lymphocytes % (A) 8 %; MCH 29.4 pg (25.0-35.0); MCHC 33.1 g/dL (31.0-37.0); MCV 88.6 fL (80.0-100.0); Mean Platelet Volume 11.6; Monocytes # (A) 0.1 k/uL (0-1.0); Monocytes % (A) 3 %; Neutrophils # (A) 3.5 k/uL (1.3-7.7); Neutrophils % (A) 87 %; RBC 4.11 m/uL (3.80-5.40); RDW 18.5 % (11.5-15.5); WBC 4.1 k/uL (3.8-10.6)
[2020-05-28 10:18] LABS: Platelet Count 22 k/uL (150-450)
[2020-05-28 12:29] LABS: Glucose,Whole Blood 117 mg/dL (75-99)
[2020-05-28 14:15] LABS: Anisocytosis (M) Present; Poikilocytosis (M) Present
--- NOTE | 2020-05-28 14:15 | P.PN ---
Subjective Progress Note Date: 05/28/20 Principal diagnosis: Sepsis, Respiratory failure, DIC Platelets 22K today, improved Objective - Vital Signs Vital signs: Vital Signs Temp 97.7 F 05/28/20 12:43 Pulse 85 05/28/20 13:14 Resp 26 H 05/28/20 13:14 BP 106/59 05/28/20 12:43 Pulse Ox 88 L 05/28/20 12:43 Intake & Output 05/27/20 05/28/20 05/28/20 18:59 06:59 18:59 Intake Total 685 500 Output Total 600 110 Balance 85 -110 500 Weight 124.5 kg Intake: Oral 685 500 Output: Urine 600 110 Other: Voiding Method Indwelling Catheter Indwelling Catheter Indwelling Catheter - Exam - Constitutional General appearance: mild distress, morbidly obese - EENT Eyes: anicteric sclerae, EOMI ENT: hearing grossly normal - Respiratory Respiratory: bilateral: diminished - Cardiovascular Heart sounds: normal: S1, S2 leg Peripheral Edema: bilateral: Trace - Neurologic Neurologic: CNII-XII intact - Musculoskeletal Musculoskeletal: strength equal bilaterally - Psychiatric Psychiatric: A&O x's 3, appropriate affect, intact judgment & insight - Labs CBC & Chem 7: 05/28/20 08:43 05/28/20 08:43 Labs: Abnormal Lab Results - Last 24 Hours (Table) 05/27/20 05/27/20 05/28/20 Range/Units 17:13 20:10 06:16 RDW (11.5-15.5) % Plt Count (150-450) k/uL APTT (22.0-30.0) sec Sodium (137-145) mmol/L Chloride (98-107) mmol/L Carbon Dioxide (22-30) mmol/L BUN (7-17) mg/dL Glucose (74-99) mg/dL POC Glucose (mg/dL) 164 H 152 H 156 H (75-99) mg/dL Total Bilirubin (0.2-1.3) mg/dL AST (14-36) U/L ALT (4-34) U/L Alkaline Phosphatase (38-126) U/L Total Protein (6.3-8.2) g/dL Albumin (3.5-5.0) g/dL 05/28/20 05/28/20 05/28/20 Range/Units 07:53 08:43 08:43 RDW 18.5 H (11.5-15.5) % Plt Count 22 L (150-450) k/uL APTT 21.2 L (22.0-30.0) sec Sodium (137-145) mmol/L Chloride (98-107) mmol/L Carbon Dioxide (22-30) mmol/L BUN (7-17) mg/dL Glucose (74-99) mg/dL POC Glucose (mg/dL) 170 H (75-99) mg/dL Total Bilirubin (0.2-1.3) mg/dL AST (14-36) U/L ALT (4-34) U/L Alkaline Phosphatase (38-126) U/L Total Protein (6.3-8.2) g/dL Albumin (3.5-5.0) g/dL 05/28/20 05/28/20 Range/Units 08:43 12:28 RDW (11.5-15.5) % Plt Count (150-450) k/uL APTT (22.0-30.0) sec Sodium 126 L (137-145) mmol/L Chloride 84 L (98-107) mmol/L Carbon Dioxide 39 H (22-30) mmol/L BUN 44 H (7-17) mg/dL Glucose 128 H (74-99) mg/dL POC Glucose (mg/dL) 117 H (75-99) mg/dL Total Bilirubin 1.7 H (0.2-1.3) mg/dL AST 94 H (14-36) U/L ALT 210 H (4-34) U/L Alkaline Phosphatase 227 H (38-126) U/L Total Protein 5.1 L (6.3-8.2) g/dL Albumin 2.6 L (3.5-5.0) g/dL Assessment and Plan Plan: - Imaging and Cardiology Chest x-ray: report reviewed Assessment and Plan Thrombocytopenia: 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 Monitor daily CBC, CMP, PT/PTT, Fibrinogen Maintain platelet count greater than 15K Cryoprecipitate Fibrinogen less than 100 Coags monitoring 22K today Increased LFTs: - Likely secondary to medication and Illness: - Monitor daily - Ultrasound reviewed, no obstruction noted Coronavirus infection - Per Pulmonology and ID - Best Supportive Care Acute Hypoxia Respiratory Failure Current Visit: Yes Status: Acute Code(s): R09.02 - HYPOXEMIA SNOMED Code(s): 540836251 Plan: HIT antibody negative. No aspirin, NSAIDs or anticoagulation for low platelet count. Daily CBC, CMP Platelets 22K MOnitor LFTs and COags Physician Attest: I have completed the full history and pohysical and agree with above dictation, dictated as a scribe
--- NOTE | 2020-05-28 16:53 | P.PN ---
Subjective Progress Note Date: 05/28/20 Principal diagnosis: Acute hypoxic respiratory failure secondary to acute covid 19 pneumonia 79-year-old female patient, morbidly obese with a BMI of 47, was hospitalized for COVID 19 related pneumonia. The patient currently is hypoxic on 3 L of oxygen by nasal cannula. She has comorbidities including obesity with a BMI of 47, hypertension, diabetes mellitus and gout. She also has hyperlipidemia and hypothyroidism. The patient started getting symptoms approximately a week ago, on 04/28/2020 and the patient was diagnosed having Covid 19 infection for a primary care physician's office on 04/29.. She continued to have episodes of fever and subsequently she became progressively more short of breath necessitating emergency department visitation today and ultimately she was hospitalized. Her chest x-ray showing bilateral pulmonary infiltrates peripheral distribution more so on the right compared to the left. The patient was started on steroids.. She is slightly nauseated. She also has loss of taste and smell LDH level is currently at 802 with a CRP of 55 and she had a lactic acid level of 2.1 at the time of admission. There d-dimer is still pending for now. Her white cell count is at 1.4 and the patient is lymphopenic with a lymphocyte count of 0.6 and there is also a drop in her platelet count down to 80 and these are all manifestations of COVID 19 infection. On today's evaluation of 04/27/2020, the patient's oxygenation has gotten worse. I saw her in the emergency department yesterday and she was on 4 L. She progressively required higher oxygen flow and she went up to a high flow oxygen through the nasal cannula airvo which she feels a currently she is on a BiPAP at a pressure of 10/5 with an FiO2 of 100%. She is able to generate a tidal volume around 450-500. Respiratory rate is in the mid 30s low 40s. She feels well. She is in mild degree of respiratory distress. She is still able to converse and talk to her BiPAP mask. Her current pulse ox is 94%. 60 showing diffuse breath and pulmonary infiltrates consistent with Covid 19 related pneumonia. Her white cell count is still down at 1.2. Platelet count is at 70 now which is low. D-dimer is at 0.65, her LDH level is at 835 with a CRP of 56. She is on Decadron. I'm going to switch her to Solu-Medrol. She is currently taking REM should be considered for convalescent plasma and addition to Tocilizumab The patient is seen today 05/06/2020 in follow-up on the regular medical floor. She is currently sitting up in bed. Awake and alert in no acute distress. Cu rrently on BiPAP 10/5 and 100% FiO2. Current saturation 88%. Chest x-ray reveals mild, medically. Residual bilateral airspace disease. Improving compared to previous. This is day #3 of Remdesivir. She received convalescent plasma 1, tocilizumab. D-dimer 0.84. C-reactive protein 2.8. LDH 459. She remains on Decadron, IV Solu-Medrol, vitamin supplements. Patient was reevaluated today on 05/09/2020, remains on BiPAP, she is on 100%, O2 sats is 94%. Surprisingly, the patient seems to be doing well in spite of her significant O2 requirement and BiPAP. Patient received REM, she also received convalescent plasma and ACTEMRA. And so far does not seem to be making that significant turnaround and significant clinical improvement. CBC and basic metabolic profile are normal except for WBC count is 2.0 today. Patient was reevaluated today on 05/10/2020, still requiring significant amount of FiO2, she remains on BiPAP at 90% FiO2, she is on IPAP of 10 and EPAP of 5, and O2 saturation remains marginal. Clinically however the patient feels better breathing easier, and have d-dimer is not that significantly elevated but it is nonetheless abnormal. Hence I recommended a CT angiogram of the chest to be done today. Renal profile is normal. CBC continues to show leukopenia with WBC count of 2.0. Electrolytes are normal. Patient was reevaluated today on 05/11/2020, patient is basically about the same. Remains on BiPAP. Her FiO2 is still at 90%, and her O2 saturation is in the low 90s. Patient is on IPAP of 10 and EPAP of 5, seems to be very comfortable. CT angiogram of the chest yesterday showed bilateral interstitial infiltrates, no evidence of thromboembolic disease/pulmonary embolism. WBC count is 2.2 hemoglobin is 11.6. A left lites are normal renal profile is normal clinically the patient is fairly comfortable, however she is still requiring significant high FiO2. Reevaluated today on 05/12/2020, patient is feeling much better today, breathing a lot easier, she is now on 80% FiO2 remains on BiPAP with IPAP of 10 and EPAP of 5. But her FiO2 was cut down to 80%, and I will cut it down further to 70% and her O2 saturation seems to be significantly improved. Patient feels that she felt much better after the Lasix was given yesterday. I will recommend another dose of Lasix to be given today. Her CT angiogram of the chest yesterday questioned mild interstitial edema. However I felt it was all related to her underlying Covid 19 pneumonitis. Nonetheless Lasix was given, and clinically the patient felt better. Labs today were all reviewed she had WBC count of 2.3 hemoglobin 12.4 lites are normal renal profile remains normal. Progress note dated 05/13/2020. Currently, the patient remains on BiPAP, at 70%. She's feeling better today. She feels less short of breath. Her BiPAP settings are IPAP 10, and EPAP 5. I did tell the patient to move around when she is lying in bed. She should lie down on her right side, left side, supine, and if possible, try to prone herself. Current laboratory data includes a white count of 2, hemoglobin 11.7, hematocrit 35.2, platelet count 94,000. Sodium is 136, potassium 3.4, chlorides 101, CO2 33, anion gap 2, BUN [address], [address] angiogram on May 10 showed no evidence of pulmonary embolism, but did show moderately severe pulmonary interstitial edema/infiltrates. Progress note dated 05/14/2020. The patient remains on BiPAP at 70%. She feels much improved. Her IPAP of 10 and EPAP is fine. She's feeling much less short of breath. I did tell her to move around in bed, right side down, left side down, supine, and even on her stomach if she can. No new labs today to look at. No recent chest x-rays to evaluate either. Medications are appropriate at this time. CT angiogram from May 10 is reviewed. Progress note dated 05/15/2020. The patient remains on BiPAP, settings of IPAP 10, and EPAP of 5. She is on 70%. Her saturations are right around 90% or so. Despite that, the patient states that she is feeling much better. She has been moving around in bed. His been laying on her right side, left side, supine, even on her stomach at times. No new labs today other than a sodium of 137, potassium 4, chloride 98, CO2 34, anion gap 5, BUN 19, creatinine 0.67. The patient is seen today 05/16/2020 in follow-up on the selective care unit. She is currently resting fairly comfortably in bed. She is continued on BiPAP currently 10/5 and 70% FiO2. She is maintaining O2 saturations about 85-86%. Today she is feeling mostly tired and fatigued. Breathing is about the same. No better but no worse currently. She remains on IV Solu-Medrol, Lovenox, vitamin supplements. Blood glucose 146. The patient is seen today 05/17/2020 in follow-up on the selective care unit. She remains awake and alert in no acute distress. She is still requiring BiPAP support 10/5 and 80% FiO2 to maintain O2 saturations in the mid 80s. She's been afebrile. Hemodynamically stable. Chest x-ray reveals cardiomegaly, continued bilateral airspace disease, slightly worsened compared to previous. Sodium 133. Potassium 4.5. Creatinine 0.67. She remains on Lovenox, IV Solu-Medrol, v itamin supplements. The patient is seen today 05/19/2020 in follow-up on the selective care unit. She is currently sitting up at the bedside. Awake and alert in no acute distress. She is still on BiPAP 12/6 and 90% FiO2. White count 4.3. Hemoglobin 12.6. Platelet count dropped to 37,000. Lymphocytes 0.3. Sodium 133. Potassium 4.5. Creatinine 0.71. Remains on IV Solu-Medrol, vitamin s upplements. Lovenox which will be held. 05/20/2020 the patient is being seen for a follow-up. The patient remains on BiPAP at a pressure of 12/6 with an FiO2 of 90%. Remains on IV Solu-Medrol. She is awake and alert. She denies having any significant shortness of breath. Hemodynamically stable. She had prolonged hospitalization due to complications of Covid 19. She is a morbidly obese female patient with a BMI of 49. She was initially on 3 L about 2 by nasal cannula. She is known to have diabetes, gout and hypertension and hyperlipidemia and hypothyroidism. The patient was diagnosed on 04/28/2020 and since then her condition progressively decompensated. She was aggressively treated over the past 2 weeks here in the hospital and her blood work showing a component of thrombocytopenia, for that reason anticoagulation was held. The patient remains on IV Solu-Medrol. She is taking 60 mg IV every 6 hours. The last chest x-ray was done on May 17 the patient had bilateral lower lobe pulmonary infiltrates . Also, there is history drop in the platelet count which is down to 30. Her white second is at 2.5 with a hemoglobin of 11.7. Rest of the blood work essentially within normal limits. The latest chest x-ray was done on 05/09/2020. She is able to tolerate the BiPAP reasonably well. Her pulse ox is a mid 80s this morning. She is able to generate a tidal volume of IVC with a respiratory rate of 26 cm ventilation of 15. She is currently off Lovenox. She is not taking any antiplatelet agents. Levaquin is a 15 units a day along with 5 units with meals 3 times a day. She is also developing increased swelling in lower extremities On today's evaluation, the patient is being seen for follow-up for Covid 19 related pneumonia. The patient is still on BiPAP at a pressure of 12/6 with an FiO2 of 90%. Her pulse ox is around 91%. She is hemodynamically stable. The patient is morbidly obese and her current BMI is 49.7. Note that she progressively got worse and she end up on BiPAP therapy. She is on IV Solu Medrol 60 mg every 6 hours. Her chest x-ray showing some limited improvement from yesterday where the diaphragms were better visualized. She is able to tolerate the BiPAP well. On today's evaluation, the patient is generating a tidal volume of 750 and her current respiratory rate is in the order of 20-27. She had some increased swelling in lower extremity bilaterally and the patient was started on Lasix yesterday and the patient is a negative fluid balance of 750 mL over the past 24 hours. She is still has significant amount of edema and she remains on Lasix at a dose of 40 mg IV every 12 hours. Platelet count currently is down to 30. DIC profile was essentially negative. The inflammatory markers from yesterday were elevated. On 05/22/2020 currently the patient remains on BiPAP at a pressure of 12/6 with an FiO2 of 90%. Her saturations remained marginal. The patient is generating adequate tidal volumes of 570 on her machine. She was started on diuretics yesterday and the patient has been negative fluid balance of 2 L over the past 24 hours. She is awake and calm and comfortable. She wasn't having issues with thrombocytopenia. The platelet count today is 23. Hematology is going to evaluate the patient. The coagulation profile is within normal limits. LDH level is at 1590 with a CRP of less than 5. She is awake and alert. She is following commands and answering questions face is able to take sips of soup and oatmeal. She is resting comfortably in bed. She remains on IV Solu-Medrol. She is also on Lasix 40 mg IV every 12 hours. She is also on Levemir insulin 15 units along with a prescription coverage. No anticoagulation for now because of her underlying thrombocytopenia. On 05/23/2020 I'm seeing the patient for a follow-up. She is awake and alert. She still on a BiPAP at a pressure of 12/6 cm of water. She has also an FiO2 of 90%. Overall, she is awake and alert and she is following commands and answering questions. She remains in good spirits she is calm and comfortable. No new complaints pH remains on IV Solu-Medrol. She also on Lasix 40 mg every 12 hours. Her platelet counts are still low at 19,000. The patient was seen by hematology. The patient was given units of cryoprecipitate yesterday. In terms of her pulmonary status, the patient is stable. The patient is not having any signs of bleeding. She is unable to tolerate some oral intake. In terms of her inflammatory markers, the levels are still up with an LDH level of 161, CRP of less than 5. Her AHI the antibodies came back negative. Rest of the blood work is all within normal limits. I will see her condition essentially unchanged compared to yesterday. In terms of her blood sugar control, the patient is on Levemir insulin 15 units in addition to NovoLog 5 units with meals and a sliding scale coverage. No chest x-ray from today. Her last chest x-ray was from yesterday. 05/24/2020, the patient remains on BiPAP 12/6 with an FiO2 of 90%. She is on IV Solu-Medrol. Platelet counts remain unchanged at 19,000. Her blood work from today shows some mild transaminitis. LDH level is 1541, nor and the CRP level is less than 5, lower. The white cell count is at 4 with a hemoglobin of 12.8. No new complaints pH is able to communicate. She is tolerating diet. No nausea. No vomiting. No diarrhea. No abdominal pain. She is on Levemir insulin 20 units along with NovoLog 5 units with meals and a sliding scale coverage. Her current pulse ox is 88%. Unable to wean her off the BiPAP for now. Chest x-ray showing some limited improvement in aeration of the lungs bilaterally. On examination, she continues to have some crackles. She does have some underlying cardiomegaly on the chest x-ray and the lower lobe pulmonary infiltrates have slightly improved on the most recent chest x-ray was done today. Tractor Driver of the case regarding the thrombocytopenia. Cardiology is also on the case regarding hypertension. She is currently on a combination of lisinopril and hydrochlorothiazide. 05/25/2020 the patient remains on 12/6 BiPAP with an FiO2 of 90%. She remains BiPAP dependent and her current pulse ox is around 90% and she is unable to wean off her FiO2. No significant tachypnea. Her respiratory rate currently is at mid 20s and her tidal volumes above 450. She is having some discomfort in her chest probably related to some heartburn. Oral intake is minimal and the pina ent is basically taking shakes and soft diet. Her platelet count today is down to 18. Hematology is monitoring this and the recommendations is to transfuse this patient with platelets under 15 K and some cryoprecipitate once the fibrinogen under 100.. The patient is not having any bleeding complications for now. On her blood work, she has a sodium of 129 and the renal function is stable. Her LFTs are still abnormal and she has some mild chest and pneumonitis. LDH is 1438 and the CRP level is less than 5. D-dimer from yesterday was 0.7. No recent chest x-ray from today. The chest x-ray from yesterday was showing bilateral pulmonary infiltrates more so in the lung bases more so on the left. As far as treatment, she remains on IV Solu-Medrol 60 mg every 6 hours and she is also on Lasix 40 mg on a daily basis to maintain her fluid balance. 2020, patient remains on BiPAP with an FiO2 of 100% and the pressures of 12/6. Current pulse ox is around 90%. Afebrile. Hemodynamically stable. Continues to have a respiratory rate in the mid 20s. She is very much tolerant to the BiPAP and she has limited reserve as the patient desaturates with coughing, talking, movement, etc. She is still trying to keep on with her nutrition through shakes and the patient is also eating. The inflammatory markers are still pending for today. The LDH from yesterday was 1438 and the CRP was 5.4 and as such the LDH level continues to be elevated. D-dimer is low at 0.5. Platelet count is at 19 and hematology is on the case. No platelet transfusions unless her platelet count is less than 15,000 per hematology. Otherwise, no other significant events. The patient remains on IV Solu-Medrol. She is currently at a dose of 40 mg every 12 hours of the patient's other medical dose was tapered yesterday. She has been the hospital for more than 3 weeks and she's been on steroids since. Most recent chest x-ray from today showing stable bilateral pulmonary infiltrates and the infiltrates are diffuse involving the upper and lower lobes bilaterally. Lung volumes are essentially small. She is also on Lasix once daily and we stopped her hydrochlorothiazide. Her sodium level today is pending, from yesterday was 129, she does have some ongoing transaminitis. Patient was reevaluated today on 05/27/2020, remains on BiPAP. 100% FiO2, with IPAP of 12 and EPAP of 6, and her O2 saturation remains marginal. Patient looks comfortable. Chest x-ray continues to show bilateral patchy infiltrates, not severe enough to explain all her profound hypoxemia. Hence I am recommending a CT angiogram on this patient to rule out the possibility of pulmonary embolism. D-dimer is borderline elevated. Patient cannot go on heparin because of her platelets, however if we need to give her heparin, will place the patient on argatroban CBC is relatively normal otherwise. Her sodium remains low at 127, remains on fluid restrictions, and at times she received diuretics. Her creatinine today is 0.77 liver enzymes remain elevated with AST of 97 ALT of 218 and alkaline phosphatase of 229 Reevaluated today on 05/28/2020, remains on BiPAP on 100%, IPAP of 12 EPAP of 6, continues to have marginal O2 saturations. Patient continues to have low platelets, CT angiogram of the chest which was ordered yesterday was negative. Surprisingly, the patient is doing well clinically, does not complain of shortness of breath although her O2 saturation is marginal. CBC is relatively normal today except for low platelets of 18.5. Sodium remains low at 126. Renal profile showed a BUN of 44 creatinine 0.70. Liver enzymes remain borderline elevated with AST of 210 and alkaline phosphatase of 227. Objective - Vital Signs Vital signs: Vital Signs Temp 97.9 F 05/28/20 16:15 Pulse 86 05/28/20 16:15 Resp 24 05/28/20 16:15 BP 125/58 05/28/20 16:15 Pulse Ox 90 L 05/28/20 16:15 Intake & Output 05/27/20 05/28/20 05/28/20 18:59 06:59 18:59 Intake Total 685 500 Output Total 600 110 Balance 85 -110 500 Weight 124.5 kg Intake: Oral 685 500 Output: Urine 600 110 Other: Voiding Method Indwelling Catheter Indwelling Catheter Indwelling Catheter - Exam Physical Exam: Revealed a 59-year-old female on BiPAP, 100 percent FiO2. Head: Is atraumatic normocephalic. HEENT:[Neck is supple.] [No neck masses.] [No thyromegaly.] [No JVD.] Chest: [Symmetrical chest expansion, crackles at the bases bilaterally. Cardiac Exam: [Normal S1 and S2, no S3 gallop, no murmur.] Abdomen: [Soft, nontender, no megaly, no rebound, no guarding, normal bowel sounds.] Extremities: [No clubbing, no edema, no cyanosis.] Neurological Exam: [No focal neurologic deficit.] Alert and oriented 3. Psychiatric: Normal mood affect and normal mental status examination. - Labs CBC & Chem 7: 05/28/20 08:43 05/28/20 08:43 Labs: Abnormal Lab Results - Last 24 Hours (Table) 05/27/20 05/27/20 05/28/20 Range/Units 17:13 20:10 06:16 RDW (11.5-15.5) % Plt Count (150-450) k/uL Lymphocytes # (1.0-4.8) k/uL APTT (22.0-30.0) sec Sodium (137-145) mmol/L Chloride (98-107) mmol/L Carbon Dioxide (22-30) mmol/L BUN (7-17) mg/dL Glucose (74-99) mg/dL POC Glucose (mg/dL) 164 H 152 H 156 H (75-99) mg/dL Total Bilirubin (0.2-1.3) mg/dL AST (14-36) U/L ALT (4-34) U/L Alkaline Phosphatase (38-126) U/L Total Protein (6.3-8.2) g/dL Albumin (3.5-5.0) g/dL 05/28/20 05/28/20 05/28/20 Range/Units 07:53 08:43 08:43 RDW 18.5 H (11.5-15.5) % Plt Count 22 L (150-450) k/uL Lymphocytes # 0.3 L (1.0-4.8) k/uL APTT 21.2 L (22.0-30.0) sec Sodium (137-145) mmol/L Chloride (98-107) mmol/L Carbon Dioxide (22-30) mmol/L BUN (7-17) mg/dL Glucose (74-99) mg/dL POC Glucose (mg/dL) 170 H (75-99) mg/dL Total Bilirubin (0.2-1.3) mg/dL AST (14-36) U/L ALT (4-34) U/L Alkaline Phosphatase (38-126) U/L Total Protein (6.3-8.2) g/dL Albumin (3.5-5.0) g/dL 05/28/20 05/28/20 Range/Units 08:43 12:28 RDW (11.5-15.5) % Plt Count (150-450) k/uL Lymphocytes # (1.0-4.8) k/uL APTT (22.0-30.0) sec Sodium 126 L (137-145) mmol/L Chloride 84 L (98-107) mmol/L Carbon Dioxide 39 H (22-30) mmol/L BUN 44 H (7-17) mg/dL Glucose 128 H (74-99) mg/dL POC Glucose (mg/dL) 117 H (75-99) mg/dL Total Bilirubin 1.7 H (0.2-1.3) mg/dL AST 94 H (14-36) U/L ALT 210 H (4-34) U/L Alkaline Phosphatase 227 H (38-126) U/L Total Protein 5.1 L (6.3-8.2) g/dL Albumin 2.6 L (3.5-5.0) g/dL Assessment and Plan Assessment: 1 acute Covid 19 related pneumonia, and ARDS. symptoms started on 04/28/2020, diagnosed to be positive on 04/29/2020 receivedrem,toci, and convalescent plasma 2 acute hypoxic respiratory failure secondary to above 3 fever secondary to above, resolved. 4 leukopenia, lymphopenia and thrombocytopenia secondary to above 5 elevation of inflammatory markers secondary to Covid 19 infection 6 obesity with a BMI of 47.0 7 diabetes mellitus type 2 8 hypertension 9 hyperlipidemia 10 hypothyroidism 7 thrombocytopenia most likely secondary to sepsis, and COVID-19 infection, being addressed by hematology on the case. Recommendation: Continue BiPAP. And titrate accordingly. CT angiogram of the chest. Was performed yesterday, no evidence of pulmonary embolism. Continue multivitamins. Patient received all the different treatments for COVID-19 pneumonia. As noted above. Negative hit antibodies noted. Continue to hold any medication that may affect platelets Continue fluid restrictions and will add demeclocycline grams twice a day for her hyponatremia. Prognosis is definitely poor and guarded. We'll continue to follow. No plans to discharge the patient anytime soon Time with Patient: Less than 30
[2020-05-28 17:35] LABS: Glucose,Whole Blood 158 mg/dL (75-99)
--- NOTE | 2020-05-28 17:39 | P.PN ---
Subjective Progress Note Date: 05/28/20 [id number] female admitted with acute hypoxic respiratory failure secondary to covid- 19 pneumonia, hypertension, diabetes mellitus, obesity and multiple other medical issues. Oxygen requirements worsened, requiring BiPAP. Chest x-ray reporting bilateral interstitial and patchy airspace opacities remain ,mild cardiomegaly. Denies chest pain, palpitations, reports chest soreness from nonproductive cough. Received a dose of Actemra, maintained on Remdesevir, IV steroids , antibiotics and multivitamin supplements. Afebrile, LDH and C- reactive protein trending down. 05/07/2020 Maintained on Remdesevir/covid regimine. Continues to require BiPAP 100% to maintain O2 sats in the high 80s to 90s. Complains of anxiety regarding mask. Deep breaths trigger cough. Afebrile. Labs pending. Denies chest pain, palpitations. 05/08/2020 sitting up at side of bed, continues to require 100% BiPAP. Ma intained on Covid regimen including Remdesevir. T-max 99.1. Occasional nonproductive cough. Denies chest pain, 05/09/20 unable to tolerate BiPAP decreased to 90% with O2 sats decreased to 84%, currently back up on 100% BiPAP, maintaining O2 sats in the 90s on 100s. T-max 99.1, labs pending. Anxiety controlled. Maintained on Covid regimen, completed 5 doses of Remdesevir. Labs pending. 05/10/2020 maintaining O2 sats in the low 90s on 95% BiPAP. Continues on IV steroids, vitamin C, vitamin D, zinc. Afebrile. Reports less coughing. Denies chest pain, palpitations. 05/13/2020 patient feeling better, reports she has " turned the corner". Maintaining O2 sats in the 90s on BiPAP 70%. Minimal nonproductive cough. Denies chest pain, palpitations. Afebrile, Received Lasix yesterday, potassium 3.4.,creatinine 0.69. 05/14/2020 continues feeling better, maintaining O2 sats in the 90s on BiPAP 70%. Occasional nonproductive cough. Mild pedal edema. Denies chest pain, palpitations. 05/15/2020 maintaining O2 sats in the low 90s on 70% BiPAP. Received Lasix yesterday, less pedal edema, renal function stable. Breathing easier. Blood sugars controlled. 05/16/2020 maintaining O2 sats in the low 90s on nonrebreather and high flow airvo. Afebrile, sodium trending down, 123, creatinine 1.8. Continues to feel better and reporting less shortness of breath. 05/17/2020 80% BiPAP, maintaining O2 sats in the 90s. Reports last night she tolerated 15 minutes on 15 L high flow nasal cannula plus nonrebreather mask .Nonproductive cough. Less tired, reports more energy. Blood sugars controlled. Denies chest pain, palpitations. Afebrile. 05/20/2020 maintained on BiPAP 90%, maintaining O2 sats in the high 80s to low 90s. Hemoglobin 11.7, Platelets decreased to 30, currently off of Lovenox .Afebrile, WBC 2.9. Chest x-ray pending. 05/21/2020 continues on BiPAP 90% maintaining O2 sats in the high 80s. Reports that well, feels good. Afebrile. Yesterday's x-ray reported persistent low lung volumes, cardiomegaly, bilateral multifocal opacity is consistent with Covid 19 infectionno significant change. Doppler reported Bilateral lower extremities negative for DVT. Diuresing well on Lasix IV push with 24-hour I&O reflecting a negative fluid balance. BUN 25, creatinine 0.7. Hit antibodies pending. 05/22/2020 maintaining O2 sats of 87 to low 90s on 90% BiPAP. Diuresing well on Lasix IV push with 24-hour I&O reflecting a negative fluid balance. BUN 27/creatinine 0.73. Hemoglobin 13.5, platelets 23-anticoagulation remains on hold. Hematology consult in place, recommendations pending. Reports sleeping well with no shortness of breath. Afebrile, normal WBC. 05/23/2020 remains on same BiPAP settings of 90% maintaining O2 sats of 90. in October she was referred to hematology/Dr. Carrion further workup regarding pancytopenia. Bone marrow was completed and was told it was fine and that she had iron deficient anemia and needed to proceed with iron transfusions. Reports she did not have a chance to start the transfusions prior to being hospitalized with Covid. Platelets currently 19 without evidence of bleeding, no petechiae .evaluated by hematology yesterday with recommendations noted and appreciated. Received transfusion of cryoprecipitate with fibrinogen up to 158. 05/24/2020 continues on BiPAP 90% to maintain O2 sats in the high 80s to low 90s. Chest x-ray pending. Telemetry sinus rhythm. hypertensive this morning, hydrochlorothiazide added to med regimen. Labs pending. Good diet intake .Hyperglycemic, blood sugars ranging from 160s to 220. 05/27/2020 maintained on 100% BiPAP, with O2 sats of low 90s. Chest x-ray reporting increasing bilateral airspace disease, hypoventilatory changes. D- dimer 0.65. CTA ordered. Hemoglobin 12.6, platelets 19. Sodium 127, on fluid restrictions. BUN 51, creatinine 0.77. T bili and LFTs remain elevated. C- reactive protein 0.8 05/28/2020 continues on BiPAP 100% maintaining marginal O2 sats. Chest CTA reported suboptimal study without significant central pulmonary embolism, cannot entirely exclude smaller segmental/subsegmental PE, worsening bilateral multi focal/confluent groundglass opacity. T bili 1.7, LFTs elevated, minimal change. Abdominal ultrasound pending. Platelets increased to 22. Sodium 126. BUN 44, creatinine 0.7. Blood sugars controlled. Objective - Vital Signs Vital signs: Vital Signs Temp 97.9 F 05/28/20 16:15 Pulse 86 05/28/20 16:15 Resp 24 05/28/20 16:15 BP 125/58 05/28/20 16:15 Pulse Ox 90 L 05/28/20 16:15 Intake & Output 05/27/20 05/28/20 05/28/20 18:59 06:59 18:59 Intake Total 685 500 Output Total 600 110 Balance 85 -110 500 Weight 124.5 kg Intake: Oral 685 500 Output: Urine 600 110 Other: Voiding Method Indwelling Catheter Indwelling Catheter Indwelling Catheter - Exam PHYSICAL EXAM: VITAL SIGNS: [As above] GENERAL: Alert and oriented 3, Sitting up in bed wearing BiPAP HEENT: Conjunctivae normal. eyes normal. CARDIOVASCULAR: S1, S2 regular.No murmur RESPIRATION: Diminished bases with bibasilar crackles ABDOMEN: Soft, nontender,nondistended.+BS, No guarding, no masses palpable. LEGS: Mild edema, no cyanosis, no clubbing. No calf pain. NERVOUS SYSTEM: Cranial N 2-12 grossly normal.No focal deficits. Skin: Warm and dry, no rash - Labs CBC & Chem 7: 05/28/20 08:43 05/28/20 08:43 Labs: Abnormal Lab Results - Last 24 Hours (Table) 05/27/20 05/28/20 05/28/20 Range/Units 20:10 06:16 07:53 RDW (11.5-15.5) % Plt Count (150-450) k/uL Lymphocytes # (1.0-4.8) k/uL APTT (22.0-30.0) sec Sodium (137-145) mmol/L Chloride (98-107) mmol/L Carbon Dioxide (22-30) mmol/L BUN (7-17) mg/dL Glucose (74-99) mg/dL POC Glucose (mg/dL) 152 H 156 H 170 H (75-99) mg/dL Total Bilirubin (0.2-1.3) mg/dL AST (14-36) U/L ALT (4-34) U/L Alkaline Phosphatase (38-126) U/L Total Protein (6.3-8.2) g/dL Albumin (3.5-5.0) g/dL 05/28/20 05/28/20 05/28/20 Range/Units 08:43 08:43 08:43 RDW 18.5 H (11.5-15.5) % Plt Count 22 L (150-450) k/uL Lymphocytes # 0.3 L (1.0-4.8) k/uL APTT 21.2 L (22.0-30.0) sec Sodium 126 L (137-145) mmol/L Chloride 84 L (98-107) mmol/L Carbon Dioxide 39 H (22-30) mmol/L BUN 44 H (7-17) mg/dL Glucose 128 H (74-99) mg/dL POC Glucose (mg/dL) (75-99) mg/dL Total Bilirubin 1.7 H (0.2-1.3) mg/dL AST 94 H (14-36) U/L ALT 210 H (4-34) U/L Alkaline Phosphatase 227 H (38-126) U/L Total Protein 5.1 L (6.3-8.2) g/dL Albumin 2.6 L (3.5-5.0) g/dL 05/28/20 Range/Units 12:28 RDW (11.5-15.5) % Plt Count (150-450) k/uL Lymphocytes # (1.0-4.8) k/uL APTT (22.0-30.0) sec Sodium (137-145) mmol/L Chloride (98-107) mmol/L Carbon Dioxide (22-30) mmol/L BUN (7-17) mg/dL Glucose (74-99) mg/dL POC Glucose (mg/dL) 117 H (75-99) mg/dL Total Bilirubin (0.2-1.3) mg/dL AST (14-36) U/L ALT (4-34) U/L Alkaline Phosphatase (38-126) U/L Total Protein (6.3-8.2) g/dL Albumin (3.5-5.0) g/dL Assessment and Plan Assessment: Sepsis, present on admission secondary to Acute Covid-19 pneumonia, status post convalescent plasma, received tocilizumab, completed Remdesevir. Acute hypoxic respiratory failure secondary to the above,BiPAP dependent. Hyponatremia, hypovolemic, suspect diuretic induced Acute anxiety secondary to the above and BiPAP mask, improved leukopenia, lymphopenia and thrombocytopenia secondary to above, hematology following. Low grade DIC as per hematology, status post cryoprecipitate LFTs, increased, secondary to Covid Hit antibodies negative Diabetes mellitus type 2 Hypertension Hyperlipidemia Hypothyroidism Morbid obesity, BMI 47 Plan: Continue on current medication regimen, monitoring and symptomatic treatment. COVID cocktail. Fluid restrictions, Declomycin .anticoagulation remains on hold secondary to low platelets.Close monitoring of electrolytes and coag's with repeat labs ordered for a.m. Prognosis guarded given multiple complex medical issues. The impression and plan of care has been dictated as directed. : I performed a history and examination of this patient, discussed the same with the dictator. I agree with the dictator's note ,documented as a scribe. Any additional findings or plans will be noted.
[2020-05-28] MEDS: ACETAMINOPHEN TAB 500 MG TAB PO PRN (18:40)
[2020-05-28 20:19] LABS: Glucose,Whole Blood 71 mg/dL (75-99)
[2020-05-28] MEDS: BACLOFEN 10 MG TAB PO SCH (20:38)
[2020-05-28] MEDS: DEMECLOCYCLINE 150 MG TAB PO SCH (20:39)
[2020-05-28] MEDS: INSULIN DETEMIR (LEVEMIR) 100 UNIT/ML SYR SQ SCH (23:25)
[2020-05-29] MEDS: ACETAMINOPHEN TAB 500 MG TAB PO PRN ×3 (00:36→20:54)
[2020-05-29 06:45] LABS: Glucose,Whole Blood 224 mg/dL (75-99)
[2020-05-29] MEDS: INSULIN ASPART (NovoLOG) 100 UNIT/ML VIAL SQ SCH ×7 (07:02→20:41)
[2020-05-29] MEDS: GLIMEPIRIDE 4 MG TAB PO SCH (07:02)
[2020-05-29] MEDS: PANTOPRAZOLE 40 MG TABLET PO SCH ×2 (07:02→17:22)
[2020-05-29] MEDS: LEVOTHYROXINE 75 MCG TAB PO SCH (07:02)
[2020-05-29] MEDS: metFORMIN 500 MG TAB PO SCH ×3 (07:02→17:22)
[2020-05-29] MEDS: ESCITALOPRAM 20 MG TAB PO SCH (08:47)
[2020-05-29] MEDS: FERROUS SULFATE 325 MG TAB PO SCH (08:47)
[2020-05-29] MEDS: CHOLECALCIFEROL 25 MCG (1000 IU) TABLET PO SCH (08:47)
[2020-05-29] MEDS: GABAPENTIN 300 MG CAP PO SCH ×4 (08:47→20:40)
[2020-05-29] MEDS: SENNOSIDES-DOCUSATE SODIUM 1 EACH TAB PO SCH (08:47)
[2020-05-29] MEDS: ATORVASTATIN 40 MG TAB PO SCH (08:47)
[2020-05-29] MEDS: allopurinoL 100 MG TAB PO SCH (08:48)
[2020-05-29] MEDS: methylPREDNISolone SOD SUCCI 40 MG/ML 1 ML VIAL IV SCH ×2 (08:48→17:22)
[2020-05-29] MEDS: DEMECLOCYCLINE 150 MG TAB PO SCH ×2 (08:48→20:40)
[2020-05-29] MEDS: lisinopriL 10 MG TAB PO SCH (08:48)
[2020-05-29] MEDS: MAG HYDROX/AL HYDROX/SIMETH 30 ML CUP PO SCH ×4 (08:48→20:39)
[2020-05-29] MEDS: ASCORBIC ACID 500 MG TAB PO SCH (08:48)
[2020-05-29] MEDS: CYANOCOBALAMIN 500 MCG TAB PO SCH (08:48)
[2020-05-29] MEDS: ZINC SULFATE 220 MG CAP PO SCH (08:48)
[2020-05-29 10:12] LABS: Anisocytosis Slight; Basophils % (A) 0 %; Eosinophils % (A) 0 %; HCT 33.3 % (34.0-46.0); HGB 11.7 gm/dL (11.4-16.0); Lymphocytes # (A) 0.2 k/uL (1.0-4.8); Lymphocytes % (A) 7 %; MCH 30.9 pg (25.0-35.0); MCHC 35.3 g/dL (31.0-37.0); MCV 87.6 fL (80.0-100.0); Mean Platelet Volume 9.6; Monocytes # (A) 0.1 k/uL (0-1.0); Monocytes % (A) 4 %; Neutrophils # (A) 2.4 k/uL (1.3-7.7); Neutrophils % (A) 88 %; RDW 17.9 % (11.5-15.5); WBC 2.7 k/uL (3.8-10.6)
[2020-05-29 10:27] LABS: ALT 232 U/L (4-34); AST 112 U/L (14-36); African American GFR (CKD) >90 (>60 ml/min/1.73 sqM); Albumin 2.6 g/dL (3.5-5.0); Alkaline Phosphatase 251 U/L (38-126); Anion Gap 4 mmol/L; Blood Urea Nitrogen 52 mg/dL (7-17); Calcium 8.3 mg/dL (8.4-10.2); Carbon Dioxide 37 mmol/L (22-30); Chloride 85 mmol/L (98-107); Glucose 203 mg/dL (74-99); Non-African American GFR(CKD) >90 (>60 ml/min/1.73 sqM); Potassium 3.9 mmol/L (3.5-5.1); Sodium 126 mmol/L (137-145); Total Bilirubin 1.6 mg/dL (0.2-1.3)
[2020-05-29 10:29] LABS: Prothrombin Time 11.1 sec (9.0-12.0)
[2020-05-29 10:48] LABS: Platelet Count 23 k/uL (150-450)
[2020-05-29 11:06] LABS: Partial Thromboplastin Time 20.7 sec (22.0-30.0)
[2020-05-29 12:25] LABS: Glucose,Whole Blood 167 mg/dL (75-99)
--- NOTE | 2020-05-29 13:56 | P.PN ---
Subjective Progress Note Date: 05/29/20 [id number] female admitted with acute hypoxic respiratory failure secondary to covid- 19 pneumonia, hypertension, diabetes mellitus, obesity and multiple other medical issues. Oxygen requirements worsened, requiring BiPAP. Chest x-ray reporting bilateral interstitial and patchy airspace opacities remain ,mild cardiomegaly. Denies chest pain, palpitations, reports chest soreness from nonproductive cough. Received a dose of Actemra, maintained on Remdesevir, IV steroids , antibiotics and multivitamin supplements. Afebrile, LDH and C- reactive protein trending down. 05/07/2020 Maintained on Remdesevir/covid regimine. Continues to require BiPAP 100% to maintain O2 sats in the high 80s to 90s. Complains of anxiety regarding mask. Deep breaths trigger cough. Afebrile. Labs pending. Denies chest pain, palpitations. 05/08/2020 sitting up at side of bed, continues to require 100% BiPAP. Ma intained on Covid regimen including Remdesevir. T-max 99.1. Occasional nonproductive cough. Denies chest pain, 05/09/20 unable to tolerate BiPAP decreased to 90% with O2 sats decreased to 84%, currently back up on 100% BiPAP, maintaining O2 sats in the 90s on 100s. T-max 99.1, labs pending. Anxiety controlled. Maintained on Covid regimen, completed 5 doses of Remdesevir. Labs pending. 05/10/2020 maintaining O2 sats in the low 90s on 95% BiPAP. Continues on IV steroids, vitamin C, vitamin D, zinc. Afebrile. Reports less coughing. Denies chest pain, palpitations. 05/13/2020 patient feeling better, reports she has " turned the corner". Maintaining O2 sats in the 90s on BiPAP 70%. Minimal nonproductive cough. Denies chest pain, palpitations. Afebrile, Received Lasix yesterday, potassium 3.4.,creatinine 0.69. 05/14/2020 continues feeling better, maintaining O2 sats in the 90s on BiPAP 70%. Occasional nonproductive cough. Mild pedal edema. Denies chest pain, palpitations. 05/15/2020 maintaining O2 sats in the low 90s on 70% BiPAP. Received Lasix yesterday, less pedal edema, renal function stable. Breathing easier. Blood sugars controlled. 05/16/2020 maintaining O2 sats in the low 90s on nonrebreather and high flow airvo. Afebrile, sodium trending down, 123, creatinine 1.8. Continues to feel better and reporting less shortness of breath. 05/17/2020 80% BiPAP, maintaining O2 sats in the 90s. Reports last night she tolerated 15 minutes on 15 L high flow nasal cannula plus nonrebreather mask .Nonproductive cough. Less tired, reports more energy. Blood sugars controlled. Denies chest pain, palpitations. Afebrile. 05/20/2020 maintained on BiPAP 90%, maintaining O2 sats in the high 80s to low 90s. Hemoglobin 11.7, Platelets decreased to 30, currently off of Lovenox .Afebrile, WBC 2.9. Chest x-ray pending. 05/21/2020 continues on BiPAP 90% maintaining O2 sats in the high 80s. Reports that well, feels good. Afebrile. Yesterday's x-ray reported persistent low lung volumes, cardiomegaly, bilateral multifocal opacity is consistent with Covid 19 infectionno significant change. Doppler reported Bilateral lower extremities negative for DVT. Diuresing well on Lasix IV push with 24-hour I&O reflecting a negative fluid balance. BUN 25, creatinine 0.7. Hit antibodies pending. 05/22/2020 maintaining O2 sats of 87 to low 90s on 90% BiPAP. Diuresing well on Lasix IV push with 24-hour I&O reflecting a negative fluid balance. BUN 27/creatinine 0.73. Hemoglobin 13.5, platelets 23-anticoagulation remains on hold. Hematology consult in place, recommendations pending. Reports sleeping well with no shortness of breath. Afebrile, normal WBC. 05/23/2020 remains on same BiPAP settings of 90% maintaining O2 sats of 90. in October she was referred to hematology/Dr. Carrion further workup regarding pancytopenia. Bone marrow was completed and was told it was fine and that she had iron deficient anemia and needed to proceed with iron transfusions. Reports she did not have a chance to start the transfusions prior to being hospitalized with Covid. Platelets currently 19 without evidence of bleeding, no petechiae .evaluated by hematology yesterday with recommendations noted and appreciated. Received transfusion of cryoprecipitate with fibrinogen up to 158. 05/24/2020 continues on BiPAP 90% to maintain O2 sats in the high 80s to low 90s. Chest x-ray pending. Telemetry sinus rhythm. hypertensive this morning, hydrochlorothiazide added to med regimen. Labs pending. Good diet intake .Hyperglycemic, blood sugars ranging from 160s to 220. 05/27/2020 maintained on 100% BiPAP, with O2 sats of low 90s. Chest x-ray reporting increasing bilateral airspace disease, hypoventilatory changes. D- dimer 0.65. CTA ordered. Hemoglobin 12.6, platelets 19. Sodium 127, on fluid restrictions. BUN 51, creatinine 0.77. T bili and LFTs remain elevated. C- reactive protein 0.8 05/28/2020 continues on BiPAP 100% maintaining marginal O2 sats. Chest CTA reported suboptimal study without significant central pulmonary embolism, cannot entirely exclude smaller segmental/subsegmental PE, worsening bilateral multi focal/confluent groundglass opacity. T bili 1.7, LFTs elevated, minimal change. Abdominal ultrasound pending. Platelets increased to 22. Sodium 126. BUN 44, creatinine 0.7. Blood sugars controlled. 05/29/2020 maintained on 100% BiPAP, O2 sats remain marginal, in the high 80s. Complains of fatigue. Labs pending. Objective - Vital Signs Vital signs: Vital Signs Temp 97.9 F 05/29/20 12:28 Pulse 86 05/29/20 12:28 Resp 23 05/29/20 12:28 BP 106/57 05/29/20 12:28 Pulse Ox 89 L 05/29/20 12:28 Intake & Output 05/28/20 05/29/20 05/29/20 18:59 06:59 18:59 Intake Total 1000 240 120 Output Total 600 500 Balance 400 -260 120 Weight 127 kg 127 kg Intake: Oral 1000 240 120 Output: Urine 600 500 Other: Voiding Method Indwelling Catheter Indwelling Catheter Indwelling Catheter - Exam PHYSICAL EXAM: VITAL SIGNS: [As above] GENERAL: Alert and oriented 3, Sitting up in bed wearing BiPAP, fatigued HEENT: Conjunctivae normal. eyes normal. CARDIOVASCULAR: S1, S2 regular.No murmur RESPIRATION: Diminished bases with bibasilar crackles ABDOMEN: Soft, nontender,nondistended.+BS, No guarding, no masses palpable. LEGS: 1+ edema, no cyanosis, no clubbing. No calf pain. NERVOUS SYSTEM: Cranial N 2-12 grossly normal.No focal deficits. Skin: Warm and dry, no rash - Labs CBC & Chem 7: 05/29/20 08:31 05/29/20 08:31 Labs: Abnormal Lab Results - Last 24 Hours (Table) 05/28/20 05/28/20 05/28/20 Range/Units 08:43 17:34 20:17 WBC (3.8-10.6) k/uL Hct (34.0-46.0) % RDW (11.5-15.5) % Plt Count (150-450) k/uL Lymphocytes # 0.3 L (1.0-4.8) k/uL APTT (22.0-30.0) sec Sodium (137-145) mmol/L Chloride (98-107) mmol/L Carbon Dioxide (22-30) mmol/L BUN (7-17) mg/dL Glucose (74-99) mg/dL POC Glucose (mg/dL) 158 H 71 L (75-99) mg/dL Calcium (8.4-10.2) mg/dL Total Bilirubin (0.2-1.3) mg/dL AST (14-36) U/L ALT (4-34) U/L Alkaline Phosphatase (38-126) U/L Total Protein (6.3-8.2) g/dL Albumin (3.5-5.0) g/dL 05/29/20 05/29/20 05/29/20 Range/Units 06:44 08:31 08:31 WBC 2.7 L (3.8-10.6) k/uL Hct 33.3 L (34.0-46.0) % RDW 17.9 H (11.5-15.5) % Plt Count 23 L (150-450) k/uL Lymphocytes # 0.2 L (1.0-4.8) k/uL APTT (22.0-30.0) sec Sodium 126 L (137-145) mmol/L Chloride 85 L (98-107) mmol/L Carbon Dioxide 37 H (22-30) mmol/L BUN 52 H (7-17) mg/dL Glucose 203 H (74-99) mg/dL POC Glucose (mg/dL) 224 H (75-99) mg/dL Calcium 8.3 L (8.4-10.2) mg/dL Total Bilirubin 1.6 H (0.2-1.3) mg/dL AST 112 H (14-36) U/L ALT 232 H (4-34) U/L Alkaline Phosphatase 251 H (38-126) U/L Total Protein 5.0 L (6.3-8.2) g/dL Albumin 2.6 L (3.5-5.0) g/dL 05/29/20 05/29/20 Range/Units 08:31 12:24 WBC (3.8-10.6) k/uL Hct (34.0-46.0) % RDW (11.5-15.5) % Plt Count (150-450) k/uL Lymphocytes # (1.0-4.8) k/uL APTT 20.7 L (22.0-30.0) sec Sodium (137-145) mmol/L Chloride (98-107) mmol/L Carbon Dioxide (22-30) mmol/L BUN (7-17) mg/dL Glucose (74-99) mg/dL POC Glucose (mg/dL) 167 H (75-99) mg/dL Calcium (8.4-10.2) mg/dL Total Bilirubin (0.2-1.3) mg/dL AST (14-36) U/L ALT (4-34) U/L Alkaline Phosphatase (38-126) U/L Total Protein (6.3-8.2) g/dL Albumin (3.5-5.0) g/dL Assessment and Plan Assessment: Sepsis, present on admission secondary to Acute Covid-19 pneumonia, status post convalescent plasma, received tocilizumab, completed Remdesevir. Acute hypoxic respiratory failure secondary to the above,BiPAP dependent. Hyponatremia, hypovolemic, suspect diuretic induced Acute anxiety secondary to the above and BiPAP mask, improved leukopenia, lymphopenia and thrombocytopenia secondary to above, hematology following. Low grade DIC as per hematology, status post cryoprecipitate Viral hepatitis, LFTs elevated secondary to Covid Hit antibodies negative Diabetes mellitus type 2 Hypertension Hyperlipidemia Hypothyroidism Morbid obesity, BMI 47 Plan: Continue on current medication regimen, monitoring and symptomatic tr eatment. Labs pending . Maintain fluid restrictions, Declomycin, COVID cocktail.Anticoagulation remains on hold secondary to low platelets.Close monitoring of electrolytes and coag's with repeat labs ordered for a.m. Prognosis guarded given multiple complex medical issues. The impression and plan of care has been dictated as directed. : I performed a history and examination of this patient, discussed the same with the dictator. I agree with the dictator's note ,documented as a scribe. Any additional findings or plans will be noted.
[2020-05-29] MEDS ORDERED: LIDOCAINE 1% INJ 10MG/ML (20 ML MDV) ONE (14:18)
[2020-05-29] MEDS ORDERED: LIDOCAINE 1% INJ 10MG/ML (20 ML MDV) SQ ONE (14:43)
--- NOTE | 2020-05-29 15:09 | XR ---
EXAMINATION TYPE: XR chest 1V confirm line [facility] DATE OF EXAM: 05/29/2020 HISTORY: Shortness of breath. COMPARISON: 05/27/2020 TECHNIQUE: Single view of the chest is submitted. FINDINGS: The patient is rotated limiting evaluation. The distal tip of the left-sided PICC line appears to be at the brachiocephalic SVC junction. No pneumothorax seen. Diffuse infiltrates redemonstrated. Hilar and mediastinal structures are within normal limits. Degenerative changes are seen of the dorsal spine. IMPRESSION: 1. As above
--- NOTE | 2020-05-29 15:55 | IR ---
EXAMINATION TYPE: IR cvc insert >=5 years DATE OF EXAM: 05/29/2020 COMPARISON: NONE HISTORY: Needs long-term intravenous access for total parenteral nutrition and therapy, Covid infecti on FINDINGS: Maximal barrier technique was utilized. Hand hygiene obtained with soap and water and alco hol-based hand rub. The skin overlying the left basilic vein was localized with ultrasound and noted to be compressible and patent by ultrasound. An ultrasound image was obtained and submitted on sarah schultz's chart. Sterile technique utilized with the ultrasound machine. The skin overlying was prepped an d draped and Lidocaine used for local anesthesia. A skin haider was made with a scalpel. Access was g ained to the vein under direct ultrasound guidance with a 21-gauge needle and a 0.018 inch wire was a dvanced. Access site was dilated with a peel-away sheath and the catheter tailored to length. Evelina ter advanced centrally and a post procedure chest x-ray verified placement with tip at the superior v bee cava. Catheter was fixed to the skin and a sterile dressing placed. Hemostasis achieved and the catheter was aspirated and flushed with sterile saline. The patient remained in stable condition. IMPRESSION: STATUS POST ULTRASOUND GUIDED PICC LINE PLACEMENT, READY FOR USE. THIS PROCEDURE WAS PER FORMED BY THE UNDERSIGNED.
--- NOTE | 2020-05-29 16:36 | P.PN ---
Subjective Progress Note Date: 05/29/20 Principal diagnosis: Acute hypoxic respiratory failure secondary to acute covid 19 pneumonia 79-year-old female patient, morbidly obese with a BMI of 47, was hospitalized for COVID 19 related pneumonia. The patient currently is hypoxic on 3 L of oxygen by nasal cannula. She has comorbidities including obesity with a BMI of 47, hypertension, diabetes mellitus and gout. She also has hyperlipidemia and hypothyroidism. The patient started getting symptoms approximately a week ago, on 04/28/2020 and the patient was diagnosed having Covid 19 infection for a primary care physician's office on 04/29.. She continued to have episodes of fever and subsequently she became progressively more short of breath necessitating emergency department visitation today and ultimately she was hospitalized. Her chest x-ray showing bilateral pulmonary infiltrates peripheral distribution more so on the right compared to the left. The patient was started on steroids.. She is slightly nauseated. She also has loss of taste and smell LDH level is currently at 802 with a CRP of 55 and she had a lactic acid level of 2.1 at the time of admission. There d-dimer is still pending for now. Her white cell count is at 1.4 and the patient is lymphopenic with a lymphocyte count of 0.6 and there is also a drop in her platelet count down to 80 and these are all manifestations of COVID 19 infection. On today's evaluation of 04/27/2020, the patient's oxygenation has gotten worse. I saw her in the emergency department yesterday and she was on 4 L. She progressively required higher oxygen flow and she went up to a high flow oxygen through the nasal cannula airvo which she feels a currently she is on a BiPAP at a pressure of 10/5 with an FiO2 of 100%. She is able to generate a tidal volume around 450-500. Respiratory rate is in the mid 30s low 40s. She feels well. She is in mild degree of respiratory distress. She is still able to converse and talk to her BiPAP mask. Her current pulse ox is 94%. 60 showing diffuse breath and pulmonary infiltrates consistent with Covid 19 related pneumonia. Her white cell count is still down at 1.2. Platelet count is at 70 now which is low. D-dimer is at 0.65, her LDH level is at 835 with a CRP of 56. She is on Decadron. I'm going to switch her to Solu-Medrol. She is currently taking REM should be considered for convalescent plasma and addition to Tocilizumab The patient is seen today 05/06/2020 in follow-up on the regular medical floor. She is currently sitting up in bed. Awake and alert in no acute distress. Cu rrently on BiPAP 10/5 and 100% FiO2. Current saturation 88%. Chest x-ray reveals mild, medically. Residual bilateral airspace disease. Improving compared to previous. This is day #3 of Remdesivir. She received convalescent plasma 1, tocilizumab. D-dimer 0.84. C-reactive protein 2.8. LDH 459. She remains on Decadron, IV Solu-Medrol, vitamin supplements. Patient was reevaluated today on 05/09/2020, remains on BiPAP, she is on 100%, O2 sats is 94%. Surprisingly, the patient seems to be doing well in spite of her significant O2 requirement and BiPAP. Patient received REM, she also received convalescent plasma and ACTEMRA. And so far does not seem to be making that significant turnaround and significant clinical improvement. CBC and basic metabolic profile are normal except for WBC count is 2.0 today. Patient was reevaluated today on 05/10/2020, still requiring significant amount of FiO2, she remains on BiPAP at 90% FiO2, she is on IPAP of 10 and EPAP of 5, and O2 saturation remains marginal. Clinically however the patient feels better breathing easier, and have d-dimer is not that significantly elevated but it is nonetheless abnormal. Hence I recommended a CT angiogram of the chest to be done today. Renal profile is normal. CBC continues to show leukopenia with WBC count of 2.0. Electrolytes are normal. Patient was reevaluated today on 05/11/2020, patient is basically about the same. Remains on BiPAP. Her FiO2 is still at 90%, and her O2 saturation is in the low 90s. Patient is on IPAP of 10 and EPAP of 5, seems to be very comfortable. CT angiogram of the chest yesterday showed bilateral interstitial infiltrates, no evidence of thromboembolic disease/pulmonary embolism. WBC count is 2.2 hemoglobin is 11.6. A left lites are normal renal profile is normal clinically the patient is fairly comfortable, however she is still requiring significant high FiO2. Reevaluated today on 05/12/2020, patient is feeling much better today, breathing a lot easier, she is now on 80% FiO2 remains on BiPAP with IPAP of 10 and EPAP of 5. But her FiO2 was cut down to 80%, and I will cut it down further to 70% and her O2 saturation seems to be significantly improved. Patient feels that she felt much better after the Lasix was given yesterday. I will recommend another dose of Lasix to be given today. Her CT angiogram of the chest yesterday questioned mild interstitial edema. However I felt it was all related to her underlying Covid 19 pneumonitis. Nonetheless Lasix was given, and clinically the patient felt better. Labs today were all reviewed she had WBC count of 2.3 hemoglobin 12.4 lites are normal renal profile remains normal. Progress note dated 05/13/2020. Currently, the patient remains on BiPAP, at 70%. She's feeling better today. She feels less short of breath. Her BiPAP settings are IPAP 10, and EPAP 5. I did tell the patient to move around when she is lying in bed. She should lie down on her right side, left side, supine, and if possible, try to prone herself. Current laboratory data includes a white count of 2, hemoglobin 11.7, hematocrit 35.2, platelet count 94,000. Sodium is 136, potassium 3.4, chlorides 101, CO2 33, anion gap 2, BUN [address], [address] angiogram on May 10 showed no evidence of pulmonary embolism, but did show moderately severe pulmonary interstitial edema/infiltrates. Progress note dated 05/14/2020. The patient remains on BiPAP at 70%. She feels much improved. Her IPAP of 10 and EPAP is fine. She's feeling much less short of breath. I did tell her to move around in bed, right side down, left side down, supine, and even on her stomach if she can. No new labs today to look at. No recent chest x-rays to evaluate either. Medications are appropriate at this time. CT angiogram from May 10 is reviewed. Progress note dated 05/15/2020. The patient remains on BiPAP, settings of IPAP 10, and EPAP of 5. She is on 70%. Her saturations are right around 90% or so. Despite that, the patient states that she is feeling much better. She has been moving around in bed. His been laying on her right side, left side, supine, even on her stomach at times. No new labs today other than a sodium of 137, potassium 4, chloride 98, CO2 34, anion gap 5, BUN 19, creatinine 0.67. The patient is seen today 05/16/2020 in follow-up on the selective care unit. She is currently resting fairly comfortably in bed. She is continued on BiPAP currently 10/5 and 70% FiO2. She is maintaining O2 saturations about 85-86%. Today she is feeling mostly tired and fatigued. Breathing is about the same. No better but no worse currently. She remains on IV Solu-Medrol, Lovenox, vitamin supplements. Blood glucose 146. The patient is seen today 05/17/2020 in follow-up on the selective care unit. She remains awake and alert in no acute distress. She is still requiring BiPAP support 10/5 and 80% FiO2 to maintain O2 saturations in the mid 80s. She's been afebrile. Hemodynamically stable. Chest x-ray reveals cardiomegaly, continued bilateral airspace disease, slightly worsened compared to previous. Sodium 133. Potassium 4.5. Creatinine 0.67. She remains on Lovenox, IV Solu-Medrol, v itamin supplements. The patient is seen today 05/19/2020 in follow-up on the selective care unit. She is currently sitting up at the bedside. Awake and alert in no acute distress. She is still on BiPAP 12/6 and 90% FiO2. White count 4.3. Hemoglobin 12.6. Platelet count dropped to 37,000. Lymphocytes 0.3. Sodium 133. Potassium 4.5. Creatinine 0.71. Remains on IV Solu-Medrol, vitamin s upplements. Lovenox which will be held. 05/20/2020 the patient is being seen for a follow-up. The patient remains on BiPAP at a pressure of 12/6 with an FiO2 of 90%. Remains on IV Solu-Medrol. She is awake and alert. She denies having any significant shortness of breath. Hemodynamically stable. She had prolonged hospitalization due to complications of Covid 19. She is a morbidly obese female patient with a BMI of 49. She was initially on 3 L about 2 by nasal cannula. She is known to have diabetes, gout and hypertension and hyperlipidemia and hypothyroidism. The patient was diagnosed on 04/28/2020 and since then her condition progressively decompensated. She was aggressively treated over the past 2 weeks here in the hospital and her blood work showing a component of thrombocytopenia, for that reason anticoagulation was held. The patient remains on IV Solu-Medrol. She is taking 60 mg IV every 6 hours. The last chest x-ray was done on May 17 the patient had bilateral lower lobe pulmonary infiltrates . Also, there is history drop in the platelet count which is down to 30. Her white second is at 2.5 with a hemoglobin of 11.7. Rest of the blood work essentially within normal limits. The latest chest x-ray was done on 05/09/2020. She is able to tolerate the BiPAP reasonably well. Her pulse ox is a mid 80s this morning. She is able to generate a tidal volume of IVC with a respiratory rate of 26 cm ventilation of 15. She is currently off Lovenox. She is not taking any antiplatelet agents. Levaquin is a 15 units a day along with 5 units with meals 3 times a day. She is also developing increased swelling in lower extremities On today's evaluation, the patient is being seen for follow-up for Covid 19 related pneumonia. The patient is still on BiPAP at a pressure of 12/6 with an FiO2 of 90%. Her pulse ox is around 91%. She is hemodynamically stable. The patient is morbidly obese and her current BMI is 49.7. Note that she progressively got worse and she end up on BiPAP therapy. She is on IV Solu Medrol 60 mg every 6 hours. Her chest x-ray showing some limited improvement from yesterday where the diaphragms were better visualized. She is able to tolerate the BiPAP well. On today's evaluation, the patient is generating a tidal volume of 750 and her current respiratory rate is in the order of 20-27. She had some increased swelling in lower extremity bilaterally and the patient was started on Lasix yesterday and the patient is a negative fluid balance of 750 mL over the past 24 hours. She is still has significant amount of edema and she remains on Lasix at a dose of 40 mg IV every 12 hours. Platelet count currently is down to 30. DIC profile was essentially negative. The inflammatory markers from yesterday were elevated. On 05/22/2020 currently the patient remains on BiPAP at a pressure of 12/6 with an FiO2 of 90%. Her saturations remained marginal. The patient is generating adequate tidal volumes of 570 on her machine. She was started on diuretics yesterday and the patient has been negative fluid balance of 2 L over the past 24 hours. She is awake and calm and comfortable. She wasn't having issues with thrombocytopenia. The platelet count today is 23. Hematology is going to evaluate the patient. The coagulation profile is within normal limits. LDH level is at 1590 with a CRP of less than 5. She is awake and alert. She is following commands and answering questions face is able to take sips of soup and oatmeal. She is resting comfortably in bed. She remains on IV Solu-Medrol. She is also on Lasix 40 mg IV every 12 hours. She is also on Levemir insulin 15 units along with a prescription coverage. No anticoagulation for now because of her underlying thrombocytopenia. On 05/23/2020 I'm seeing the patient for a follow-up. She is awake and alert. She still on a BiPAP at a pressure of 12/6 cm of water. She has also an FiO2 of 90%. Overall, she is awake and alert and she is following commands and answering questions. She remains in good spirits she is calm and comfortable. No new complaints pH remains on IV Solu-Medrol. She also on Lasix 40 mg every 12 hours. Her platelet counts are still low at 19,000. The patient was seen by hematology. The patient was given units of cryoprecipitate yesterday. In terms of her pulmonary status, the patient is stable. The patient is not having any signs of bleeding. She is unable to tolerate some oral intake. In terms of her inflammatory markers, the levels are still up with an LDH level of 161, CRP of less than 5. Her AHI the antibodies came back negative. Rest of the blood work is all within normal limits. I will see her condition essentially unchanged compared to yesterday. In terms of her blood sugar control, the patient is on Levemir insulin 15 units in addition to NovoLog 5 units with meals and a sliding scale coverage. No chest x-ray from today. Her last chest x-ray was from yesterday. 05/24/2020, the patient remains on BiPAP 12/6 with an FiO2 of 90%. She is on IV Solu-Medrol. Platelet counts remain unchanged at 19,000. Her blood work from today shows some mild transaminitis. LDH level is 1541, nor and the CRP level is less than 5, lower. The white cell count is at 4 with a hemoglobin of 12.8. No new complaints pH is able to communicate. She is tolerating diet. No nausea. No vomiting. No diarrhea. No abdominal pain. She is on Levemir insulin 20 units along with NovoLog 5 units with meals and a sliding scale coverage. Her current pulse ox is 88%. Unable to wean her off the BiPAP for now. Chest x-ray showing some limited improvement in aeration of the lungs bilaterally. On examination, she continues to have some crackles. She does have some underlying cardiomegaly on the chest x-ray and the lower lobe pulmonary infiltrates have slightly improved on the most recent chest x-ray was done today. Site Administrator of the case regarding the thrombocytopenia. Cardiology is also on the case regarding hypertension. She is currently on a combination of lisinopril and hydrochlorothiazide. 05/25/2020 the patient remains on 12/6 BiPAP with an FiO2 of 90%. She remains BiPAP dependent and her current pulse ox is around 90% and she is unable to wean off her FiO2. No significant tachypnea. Her respiratory rate currently is at mid 20s and her tidal volumes above 450. She is having some discomfort in her chest probably related to some heartburn. Oral intake is minimal and the pina ent is basically taking shakes and soft diet. Her platelet count today is down to 18. Hematology is monitoring this and the recommendations is to transfuse this patient with platelets under 15 K and some cryoprecipitate once the fibrinogen under 100.. The patient is not having any bleeding complications for now. On her blood work, she has a sodium of 129 and the renal function is stable. Her LFTs are still abnormal and she has some mild chest and pneumonitis. LDH is 1438 and the CRP level is less than 5. D-dimer from yesterday was 0.7. No recent chest x-ray from today. The chest x-ray from yesterday was showing bilateral pulmonary infiltrates more so in the lung bases more so on the left. As far as treatment, she remains on IV Solu-Medrol 60 mg every 6 hours and she is also on Lasix 40 mg on a daily basis to maintain her fluid balance. 2020, patient remains on BiPAP with an FiO2 of 100% and the pressures of 12/6. Current pulse ox is around 90%. Afebrile. Hemodynamically stable. Continues to have a respiratory rate in the mid 20s. She is very much tolerant to the BiPAP and she has limited reserve as the patient desaturates with coughing, talking, movement, etc. She is still trying to keep on with her nutrition through shakes and the patient is also eating. The inflammatory markers are still pending for today. The LDH from yesterday was 1438 and the CRP was 5.4 and as such the LDH level continues to be elevated. D-dimer is low at 0.5. Platelet count is at 19 and hematology is on the case. No platelet transfusions unless her platelet count is less than 15,000 per hematology. Otherwise, no other significant events. The patient remains on IV Solu-Medrol. She is currently at a dose of 40 mg every 12 hours of the patient's other medical dose was tapered yesterday. She has been the hospital for more than 3 weeks and she's been on steroids since. Most recent chest x-ray from today showing stable bilateral pulmonary infiltrates and the infiltrates are diffuse involving the upper and lower lobes bilaterally. Lung volumes are essentially small. She is also on Lasix once daily and we stopped her hydrochlorothiazide. Her sodium level today is pending, from yesterday was 129, she does have some ongoing transaminitis. Patient was reevaluated today on 05/27/2020, remains on BiPAP. 100% FiO2, with IPAP of 12 and EPAP of 6, and her O2 saturation remains marginal. Patient looks comfortable. Chest x-ray continues to show bilateral patchy infiltrates, not severe enough to explain all her profound hypoxemia. Hence I am recommending a CT angiogram on this patient to rule out the possibility of pulmonary embolism. D-dimer is borderline elevated. Patient cannot go on heparin because of her platelets, however if we need to give her heparin, will place the patient on argatroban CBC is relatively normal otherwise. Her sodium remains low at 127, remains on fluid restrictions, and at times she received diuretics. Her creatinine today is 0.77 liver enzymes remain elevated with AST of 97 ALT of 218 and alkaline phosphatase of 229 Reevaluated today on 05/28/2020, remains on BiPAP on 100%, IPAP of 12 EPAP of 6, continues to have marginal O2 saturations. Patient continues to have low platelets, CT angiogram of the chest which was ordered yesterday was negative. Surprisingly, the patient is doing well clinically, does not complain of shortness of breath although her O2 saturation is marginal. CBC is relatively normal today except for low platelets of 18.5. Sodium remains low at 126. Renal profile showed a BUN of 44 creatinine 0.70. Liver enzymes remain borderline elevated with AST of 210 and alkaline phosphatase of 227. Patient was reevaluated today on 05/29/2020, remains on BiPAP and on the percent FiO2, IPAP of 12 EPAP of 6, O2 saturation remains very marginal at best. Surprisingly, and clinically the patient continues to do well, does not seem to be in any distress. Patient remains on the multiple medications/COVID-19 cocktail. Remains on steroids, today I increased her methylprednisolone 40 mg IV push every 6 hours. Sodium remains low in spite of fluid restriction and demeclocycline. WBC count is 2.7, platelets remained low at 23,000. BUN is 52 creatinine 0.73, Lasix remains on hold. Transaminases are borderline elevated. Objective - Vital Signs Vital signs: Vital Signs Temp 97.9 F 05/29/20 16:08 Pulse 86 05/29/20 14:00 Resp 24 05/29/20 16:08 BP 108/53 05/29/20 16:08 Pulse Ox 91 L 05/29/20 16:08 Intake & Output 05/28/20 05/29/20 05/29/20 18:59 06:59 18:59 Intake Total 1000 240 620 Output Total 600 500 Balance 400 -260 620 Weight 127 kg 127 kg Intake: Oral 1000 240 620 Output: Urine 600 500 Other: Voiding Method Indwelling Catheter Indwelling Catheter Indwelling Catheter - Exam Physical Exam: Revealed a 59-year-old female on BiPAP, 100 percent FiO2. Head: Is atraumatic normocephalic. HEENT:[Neck is supple.] [No neck masses.] [No thyromegaly.] [No JVD.] Chest: [Symmetrical chest expansion, crackles at the bases bilaterally. Cardiac Exam: [Normal S1 and S2, no S3 gallop, no murmur.] Abdomen: [Soft, nontender, no megaly, no rebound, no guarding, normal bowel sounds.] Extremities: [No clubbing, no edema, no cyanosis.] Neurological Exam: [No focal neurologic deficit.] Alert and oriented 3. Psychiatric: Normal mood affect and normal mental status examination. - Labs CBC & Chem 7: 05/29/20 08:31 05/29/20 08:31 Labs: Abnormal Lab Results - Last 24 Hours (Table) 05/28/20 05/28/20 05/29/20 Range/Units 17:34 20:17 06:44 WBC (3.8-10.6) k/uL Hct (34.0-46.0) % RDW (11.5-15.5) % Plt Count (150-450) k/uL Lymphocytes # (1.0-4.8) k/uL APTT (22.0-30.0) sec Sodium (137-145) mmol/L Chloride (98-107) mmol/L Carbon Dioxide (22-30) mmol/L BUN (7-17) mg/dL Glucose (74-99) mg/dL POC Glucose (mg/dL) 158 H 71 L 224 H (75-99) mg/dL Calcium (8.4-10.2) mg/dL Total Bilirubin (0.2-1.3) mg/dL AST (14-36) U/L ALT (4-34) U/L Alkaline Phosphatase (38-126) U/L Total Protein (6.3-8.2) g/dL Albumin (3.5-5.0) g/dL 05/29/20 05/29/20 05/29/20 Range/Units 08:31 08:31 08:31 WBC 2.7 L (3.8-10.6) k/uL Hct 33.3 L (34.0-46.0) % RDW 17.9 H (11.5-15.5) % Plt Count 23 L (150-450) k/uL Lymphocytes # 0.2 L (1.0-4.8) k/uL APTT 20.7 L (22.0-30.0) sec Sodium 126 L (137-145) mmol/L Chloride 85 L (98-107) mmol/L Carbon Dioxide 37 H (22-30) mmol/L BUN 52 H (7-17) mg/dL Glucose 203 H (74-99) mg/dL POC Glucose (mg/dL) (75-99) mg/dL Calcium 8.3 L (8.4-10.2) mg/dL Total Bilirubin 1.6 H (0.2-1.3) mg/dL AST 112 H (14-36) U/L ALT 232 H (4-34) U/L Alkaline Phosphatase 251 H (38-126) U/L Total Protein 5.0 L (6.3-8.2) g/dL Albumin 2.6 L (3.5-5.0) g/dL 05/29/20 Range/Units 12:24 WBC (3.8-10.6) k/uL Hct (34.0-46.0) % RDW (11.5-15.5) % Plt Count (150-450) k/uL Lymphocytes # (1.0-4.8) k/uL APTT (22.0-30.0) sec Sodium (137-145) mmol/L Chloride (98-107) mmol/L Carbon Dioxide (22-30) mmol/L BUN (7-17) mg/dL Glucose (74-99) mg/dL POC Glucose (mg/dL) 167 H (75-99) mg/dL Calcium (8.4-10.2) mg/dL Total Bilirubin (0.2-1.3) mg/dL AST (14-36) U/L ALT (4-34) U/L Alkaline Phosphatase (38-126) U/L Total Protein (6.3-8.2) g/dL Albumin (3.5-5.0) g/dL Assessment and Plan Assessment: 1 acute Covid 19 related pneumonia, and ARDS. symptoms started on 04/28/2020, diagnosed to be positive on 04/29/2020 receivedrem,toci, and convalescent plasma 2 acute hypoxic respiratory failure secondary to above 3 fever secondary to above, resolved. 4 leukopenia, lymphopenia and thrombocytopenia secondary to above 5 elevation of inflammatory markers secondary to Covid 19 infection 6 obesity with a BMI of 47.0 7 diabetes mellitus type 2 8 hypertension 9 hyperlipidemia 10 hypothyroidism 7 thrombocytopenia most likely secondary to sepsis, and COVID-19 infection, being addressed by hematology on the case. 8 hyponatremia possibly SIADH related. Recommendation: Continue BiPAP. And titrate accordingly. Patient received all the different treatments for COVID-19 pneumonia. As noted above. Continue to hold any medication that may affect platelets Continue fluid restrictions continue demeclocycline 150 mg twice a day Increase Solu-Medrol to 40 mg IV push every 6 hours. Prognosis is definitely poor and guarded. We'll continue to follow. Time with Patient: Less than 30
[2020-05-29 17:17] LABS: Glucose,Whole Blood 165 mg/dL (75-99)
--- NOTE | 2020-05-29 19:29 | P.PN ---
Subjective Progress Note Date: 05/29/20 Principal diagnosis: Sepsis, Respiratory failure, DIC Coags and Platelets remain about the same to mild improved. WBC decreased today, remains hyponatremic. Objective - Vital Signs Vital signs: Vital Signs Temp 97.9 F 05/29/20 16:08 Pulse 86 05/29/20 14:00 Resp 24 05/29/20 16:08 BP 108/53 05/29/20 16:08 Pulse Ox 91 L 05/29/20 16:08 Intake & Output 05/29/20 05/29/20 05/30/20 06:59 18:59 06:59 Intake Total 240 740 Output Total 500 Balance -260 740 Weight 127 kg 127 kg Intake: Oral 240 740 Output: Urine 500 Other: Voiding Method Indwelling Catheter Indwelling Catheter - Exam - Constitutional General appearance: mild distress, morbidly obese - EENT Eyes: anicteric sclerae, EOMI ENT: hearing grossly normal - Respiratory Respiratory: bilateral: diminished - Cardiovascular Heart sounds: normal: S1, S2 leg Peripheral Edema: bilateral: Trace - Neurologic Neurologic: CNII-XII intact - Musculoskeletal Musculoskeletal: strength equal bilaterally - Psychiatric Psychiatric: A&O x's 3, appropriate affect, intact judgment & insight - Labs CBC & Chem 7: 05/29/20 08:31 05/29/20 08:31 Labs: Abnormal Lab Results - Last 24 Hours (Table) 05/28/20 05/29/20 05/29/20 Range/Units 20:17 06:44 08:31 WBC 2.7 L (3.8-10.6) k/uL Hct 33.3 L (34.0-46.0) % RDW 17.9 H (11.5-15.5) % Plt Count 23 L (150-450) k/uL Lymphocytes # 0.2 L (1.0-4.8) k/uL APTT (22.0-30.0) sec Sodium (137-145) mmol/L Chloride (98-107) mmol/L Carbon Dioxide (22-30) mmol/L BUN (7-17) mg/dL Glucose (74-99) mg/dL POC Glucose (mg/dL) 71 L 224 H (75-99) mg/dL Calcium (8.4-10.2) mg/dL Total Bilirubin (0.2-1.3) mg/dL AST (14-36) U/L ALT (4-34) U/L Alkaline Phosphatase (38-126) U/L Total Protein (6.3-8.2) g/dL Albumin (3.5-5.0) g/dL 05/29/20 05/29/20 05/29/20 Range/Units 08:31 08:31 12:24 WBC (3.8-10.6) k/uL Hct (34.0-46.0) % RDW (11.5-15.5) % Plt Count (150-450) k/uL Lymphocytes # (1.0-4.8) k/uL APTT 20.7 L (22.0-30.0) sec Sodium 126 L (137-145) mmol/L Chloride 85 L (98-107) mmol/L Carbon Dioxide 37 H (22-30) mmol/L BUN 52 H (7-17) mg/dL Glucose 203 H (74-99) mg/dL POC Glucose (mg/dL) 167 H (75-99) mg/dL Calcium 8.3 L (8.4-10.2) mg/dL Total Bilirubin 1.6 H (0.2-1.3) mg/dL AST 112 H (14-36) U/L ALT 232 H (4-34) U/L Alkaline Phosphatase 251 H (38-126) U/L Total Protein 5.0 L (6.3-8.2) g/dL Albumin 2.6 L (3.5-5.0) g/dL 05/29/20 Range/Units 17:16 WBC (3.8-10.6) k/uL Hct (34.0-46.0) % RDW (11.5-15.5) % Plt Count (150-450) k/uL Lymphocytes # (1.0-4.8) k/uL APTT (22.0-30.0) sec Sodium (137-145) mmol/L Chloride (98-107) mmol/L Carbon Dioxide (22-30) mmol/L BUN (7-17) mg/dL Glucose (74-99) mg/dL POC Glucose (mg/dL) 165 H (75-99) mg/dL Calcium (8.4-10.2) mg/dL Total Bilirubin (0.2-1.3) mg/dL AST (14-36) U/L ALT (4-34) U/L Alkaline Phosphatase (38-126) U/L Total Protein (6.3-8.2) g/dL Albumin (3.5-5.0) g/dL Assessment and Plan Plan: - Imaging and Cardiology Chest x-ray: report reviewed Assessment and Plan Thrombocytopenia: 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 Monitor daily CBC, CMP, PT/PTT, Fibrinogen Maintain platelet count greater than 15K Cryoprecipitate Fibrinogen less than 100 Coags monitoring 23K today Increased LFTs: - Likely secondary to medication and Illness: - Monitor daily - Ultrasound reviewed, no obstruction noted Coronavirus infection - Per Pulmonology and ID - Best Supportive Care Acute Hypoxia Respiratory Failure Current Visit: Yes Status: Acute Code(s): R09.02 - HYPOXEMIA SNOMED Code(s): 497906150 Plan: HIT antibody negative. No aspirin, NSAIDs or anticoagulation for low platelet count. Daily CBC, CMP Platelets 23K MOnitor LFTs and COags If signs of bleeding transfuse platelets and recheck fibrinogen for option of cryo (if s/s bleeding)
[2020-05-29 19:57] LABS: Glucose,Whole Blood 213 mg/dL (75-99)
[2020-05-29] MEDS: INSULIN DETEMIR (LEVEMIR) 100 UNIT/ML SYR SQ SCH (20:40)
[2020-05-29] MEDS: BACLOFEN 10 MG TAB PO SCH (20:40)
[2020-05-30] MEDS: LORazepam 2 MG/ML INJ IV PRN (00:24)
[2020-05-30] MEDS: methylPREDNISolone SOD SUCCI 40 MG/ML 1 ML VIAL IV SCH ×5 (00:25→23:13)
[2020-05-30 06:03] LABS: Glucose,Whole Blood 219 mg/dL (75-99)
[2020-05-30] MEDS: LEVOTHYROXINE 75 MCG TAB PO SCH (06:46)
[2020-05-30] MEDS: GLIMEPIRIDE 4 MG TAB PO SCH (06:46)
[2020-05-30] MEDS: metFORMIN 500 MG TAB PO SCH ×3 (06:46→17:54)
[2020-05-30] MEDS: PANTOPRAZOLE 40 MG TABLET PO SCH ×2 (06:46→17:54)
[2020-05-30] MEDS: INSULIN ASPART (NovoLOG) 100 UNIT/ML VIAL SQ SCH ×7 (07:03→20:21)
[2020-05-30 09:00] LABS: HCT 35.7 % (34.0-46.0); HGB 12.3 gm/dL (11.4-16.0); MCH 30.6 pg (25.0-35.0); MCHC 34.6 g/dL (31.0-37.0); MCV 88.6 fL (80.0-100.0); RBC 4.03 m/uL (3.80-5.40); RDW 17.9 % (11.5-15.5)
[2020-05-30 09:01] LABS: Anisocytosis Slight; Basophils % (A) 0 %; Eosinophils % (A) 1 %; Lymphocytes # (A) 0.2 k/uL (1.0-4.8); Lymphocytes % (A) 6 %; Mean Platelet Volume 10.2; Monocytes # (A) 0.2 k/uL (0-1.0); Monocytes % (A) 6 %; Neutrophils # (A) 2.6 k/uL (1.3-7.7); Neutrophils % (A) 87 %
[2020-05-30 09:05] LABS: Platelet Count 26 k/uL (150-450)
[2020-05-30 09:16] LABS: ALT 203 U/L (4-34); AST 92 U/L (14-36); African American GFR (CKD) >90 (>60 ml/min/1.73 sqM); Albumin 2.7 g/dL (3.5-5.0); Alkaline Phosphatase 243 U/L (38-126); Anion Gap 3 mmol/L; Blood Urea Nitrogen 42 mg/dL (7-17); Calcium 8.6 mg/dL (8.4-10.2); Carbon Dioxide 36 mmol/L (22-30); Chloride 87 mmol/L (98-107); Glucose 224 mg/dL (74-99); Non-African American GFR(CKD) >90 (>60 ml/min/1.73 sqM); Sodium 126 mmol/L (137-145); Total Bilirubin 1.5 mg/dL (0.2-1.3); Total Protein 5.3 g/dL (6.3-8.2)
[2020-05-30] MEDS: DEMECLOCYCLINE 150 MG TAB PO SCH ×2 (09:21→20:22)
[2020-05-30] MEDS: CYANOCOBALAMIN 500 MCG TAB PO SCH (09:21)
[2020-05-30] MEDS: CHOLECALCIFEROL 25 MCG (1000 IU) TABLET PO SCH (09:21)
[2020-05-30] MEDS: ASCORBIC ACID 500 MG TAB PO SCH (09:21)
[2020-05-30] MEDS: ESCITALOPRAM 20 MG TAB PO SCH (09:21)
[2020-05-30] MEDS: ATORVASTATIN 40 MG TAB PO SCH (09:21)
[2020-05-30] MEDS: allopurinoL 100 MG TAB PO SCH (09:21)
[2020-05-30] MEDS: FERROUS SULFATE 325 MG TAB PO SCH (09:21)
[2020-05-30] MEDS: SENNOSIDES-DOCUSATE SODIUM 1 EACH TAB PO SCH (09:22)
[2020-05-30] MEDS: MAG HYDROX/AL HYDROX/SIMETH 30 ML CUP PO SCH ×4 (09:22→20:21)
[2020-05-30] MEDS: GABAPENTIN 300 MG CAP PO SCH ×4 (09:22→20:22)
[2020-05-30] MEDS: lisinopriL 10 MG TAB PO SCH (09:22)
[2020-05-30] MEDS: ZINC SULFATE 220 MG CAP PO SCH (09:22)
[2020-05-30] MEDS: ACETAMINOPHEN TAB 500 MG TAB PO PRN ×3 (09:36→23:14)
[2020-05-30 11:38] LABS: Glucose,Whole Blood 215 mg/dL (75-99)
[2020-05-30 16:03] LABS: Magnesium 2.5 mg/dL (1.6-2.3); Phosphorus 3.9 mg/dL (2.5-4.5)
--- NOTE | 2020-05-30 16:31 | P.PN ---
Subjective Progress Note Date: 05/30/20 Principal diagnosis: Acute hypoxic respiratory failure secondary to acute covid 19 pneumonia 79-year-old female patient, morbidly obese with a BMI of 47, was hospitalized for COVID 19 related pneumonia. The patient currently is hypoxic on 3 L of oxygen by nasal cannula. She has comorbidities including obesity with a BMI of 47, hypertension, diabetes mellitus and gout. She also has hyperlipidemia and hypothyroidism. The patient started getting symptoms approximately a week ago, on 04/28/2020 and the patient was diagnosed having Covid 19 infection for a primary care physician's office on 04/29.. She continued to have episodes of fever and subsequently she became progressively more short of breath necessitating emergency department visitation today and ultimately she was hospitalized. Her chest x-ray showing bilateral pulmonary infiltrates peripheral distribution more so on the right compared to the left. The patient was started on steroids.. She is slightly nauseated. She also has loss of taste and smell LDH level is currently at 802 with a CRP of 55 and she had a lactic acid level of 2.1 at the time of admission. There d-dimer is still pending for now. Her white cell count is at 1.4 and the patient is lymphopenic with a lymphocyte count of 0.6 and there is also a drop in her platelet count down to 80 and these are all manifestations of COVID 19 infection. On today's evaluation of 04/27/2020, the patient's oxygenation has gotten worse. I saw her in the emergency department yesterday and she was on 4 L. She progressively required higher oxygen flow and she went up to a high flow oxygen through the nasal cannula airvo which she feels a currently she is on a BiPAP at a pressure of 10/5 with an FiO2 of 100%. She is able to generate a tidal volume around 450-500. Respiratory rate is in the mid 30s low 40s. She feels well. She is in mild degree of respiratory distress. She is still able to converse and talk to her BiPAP mask. Her current pulse ox is 94%. 60 showing diffuse breath and pulmonary infiltrates consistent with Covid 19 related pneumonia. Her white cell count is still down at 1.2. Platelet count is at 70 now which is low. D-dimer is at 0.65, her LDH level is at 835 with a CRP of 56. She is on Decadron. I'm going to switch her to Solu-Medrol. She is currently taking REM should be considered for convalescent plasma and addition to Tocilizumab The patient is seen today 05/06/2020 in follow-up on the regular medical floor. She is currently sitting up in bed. Awake and alert in no acute distress. Cu rrently on BiPAP 10/5 and 100% FiO2. Current saturation 88%. Chest x-ray reveals mild, medically. Residual bilateral airspace disease. Improving compared to previous. This is day #3 of Remdesivir. She received convalescent plasma 1, tocilizumab. D-dimer 0.84. C-reactive protein 2.8. LDH 459. She remains on Decadron, IV Solu-Medrol, vitamin supplements. Patient was reevaluated today on 05/09/2020, remains on BiPAP, she is on 100%, O2 sats is 94%. Surprisingly, the patient seems to be doing well in spite of her significant O2 requirement and BiPAP. Patient received REM, she also received convalescent plasma and ACTEMRA. And so far does not seem to be making that significant turnaround and significant clinical improvement. CBC and basic metabolic profile are normal except for WBC count is 2.0 today. Patient was reevaluated today on 05/10/2020, still requiring significant amount of FiO2, she remains on BiPAP at 90% FiO2, she is on IPAP of 10 and EPAP of 5, and O2 saturation remains marginal. Clinically however the patient feels better breathing easier, and have d-dimer is not that significantly elevated but it is nonetheless abnormal. Hence I recommended a CT angiogram of the chest to be done today. Renal profile is normal. CBC continues to show leukopenia with WBC count of 2.0. Electrolytes are normal. Patient was reevaluated today on 05/11/2020, patient is basically about the same. Remains on BiPAP. Her FiO2 is still at 90%, and her O2 saturation is in the low 90s. Patient is on IPAP of 10 and EPAP of 5, seems to be very comfortable. CT angiogram of the chest yesterday showed bilateral interstitial infiltrates, no evidence of thromboembolic disease/pulmonary embolism. WBC count is 2.2 hemoglobin is 11.6. A left lites are normal renal profile is normal clinically the patient is fairly comfortable, however she is still requiring significant high FiO2. Reevaluated today on 05/12/2020, patient is feeling much better today, breathing a lot easier, she is now on 80% FiO2 remains on BiPAP with IPAP of 10 and EPAP of 5. But her FiO2 was cut down to 80%, and I will cut it down further to 70% and her O2 saturation seems to be significantly improved. Patient feels that she felt much better after the Lasix was given yesterday. I will recommend another dose of Lasix to be given today. Her CT angiogram of the chest yesterday questioned mild interstitial edema. However I felt it was all related to her underlying Covid 19 pneumonitis. Nonetheless Lasix was given, and clinically the patient felt better. Labs today were all reviewed she had WBC count of 2.3 hemoglobin 12.4 lites are normal renal profile remains normal. Progress note dated 05/13/2020. Currently, the patient remains on BiPAP, at 70%. She's feeling better today. She feels less short of breath. Her BiPAP settings are IPAP 10, and EPAP 5. I did tell the patient to move around when she is lying in bed. She should lie down on her right side, left side, supine, and if possible, try to prone herself. Current laboratory data includes a white count of 2, hemoglobin 11.7, hematocrit 35.2, platelet count 94,000. Sodium is 136, potassium 3.4, chlorides 101, CO2 33, anion gap 2, BUN [address], [address] angiogram on May 10 showed no evidence of pulmonary embolism, but did show moderately severe pulmonary interstitial edema/infiltrates. Progress note dated 05/14/2020. The patient remains on BiPAP at 70%. She feels much improved. Her IPAP of 10 and EPAP is fine. She's feeling much less short of breath. I did tell her to move around in bed, right side down, left side down, supine, and even on her stomach if she can. No new labs today to look at. No recent chest x-rays to evaluate either. Medications are appropriate at this time. CT angiogram from May 10 is reviewed. Progress note dated 05/15/2020. The patient remains on BiPAP, settings of IPAP 10, and EPAP of 5. She is on 70%. Her saturations are right around 90% or so. Despite that, the patient states that she is feeling much better. She has been moving around in bed. His been laying on her right side, left side, supine, even on her stomach at times. No new labs today other than a sodium of 137, potassium 4, chloride 98, CO2 34, anion gap 5, BUN 19, creatinine 0.67. The patient is seen today 05/16/2020 in follow-up on the selective care unit. She is currently resting fairly comfortably in bed. She is continued on BiPAP currently 10/5 and 70% FiO2. She is maintaining O2 saturations about 85-86%. Today she is feeling mostly tired and fatigued. Breathing is about the same. No better but no worse currently. She remains on IV Solu-Medrol, Lovenox, vitamin supplements. Blood glucose 146. The patient is seen today 05/17/2020 in follow-up on the selective care unit. She remains awake and alert in no acute distress. She is still requiring BiPAP support 10/5 and 80% FiO2 to maintain O2 saturations in the mid 80s. She's been afebrile. Hemodynamically stable. Chest x-ray reveals cardiomegaly, continued bilateral airspace disease, slightly worsened compared to previous. Sodium 133. Potassium 4.5. Creatinine 0.67. She remains on Lovenox, IV Solu-Medrol, v itamin supplements. The patient is seen today 05/19/2020 in follow-up on the selective care unit. She is currently sitting up at the bedside. Awake and alert in no acute distress. She is still on BiPAP 12/6 and 90% FiO2. White count 4.3. Hemoglobin 12.6. Platelet count dropped to 37,000. Lymphocytes 0.3. Sodium 133. Potassium 4.5. Creatinine 0.71. Remains on IV Solu-Medrol, vitamin s upplements. Lovenox which will be held. 05/20/2020 the patient is being seen for a follow-up. The patient remains on BiPAP at a pressure of 12/6 with an FiO2 of 90%. Remains on IV Solu-Medrol. She is awake and alert. She denies having any significant shortness of breath. Hemodynamically stable. She had prolonged hospitalization due to complications of Covid 19. She is a morbidly obese female patient with a BMI of 49. She was initially on 3 L about 2 by nasal cannula. She is known to have diabetes, gout and hypertension and hyperlipidemia and hypothyroidism. The patient was diagnosed on 04/28/2020 and since then her condition progressively decompensated. She was aggressively treated over the past 2 weeks here in the hospital and her blood work showing a component of thrombocytopenia, for that reason anticoagulation was held. The patient remains on IV Solu-Medrol. She is taking 60 mg IV every 6 hours. The last chest x-ray was done on May 17 the patient had bilateral lower lobe pulmonary infiltrates . Also, there is history drop in the platelet count which is down to 30. Her white second is at 2.5 with a hemoglobin of 11.7. Rest of the blood work essentially within normal limits. The latest chest x-ray was done on 05/09/2020. She is able to tolerate the BiPAP reasonably well. Her pulse ox is a mid 80s this morning. She is able to generate a tidal volume of IVC with a respiratory rate of 26 cm ventilation of 15. She is currently off Lovenox. She is not taking any antiplatelet agents. Levaquin is a 15 units a day along with 5 units with meals 3 times a day. She is also developing increased swelling in lower extremities On today's evaluation, the patient is being seen for follow-up for Covid 19 related pneumonia. The patient is still on BiPAP at a pressure of 12/6 with an FiO2 of 90%. Her pulse ox is around 91%. She is hemodynamically stable. The patient is morbidly obese and her current BMI is 49.7. Note that she progressively got worse and she end up on BiPAP therapy. She is on IV Solu Medrol 60 mg every 6 hours. Her chest x-ray showing some limited improvement from yesterday where the diaphragms were better visualized. She is able to tolerate the BiPAP well. On today's evaluation, the patient is generating a tidal volume of 750 and her current respiratory rate is in the order of 20-27. She had some increased swelling in lower extremity bilaterally and the patient was started on Lasix yesterday and the patient is a negative fluid balance of 750 mL over the past 24 hours. She is still has significant amount of edema and she remains on Lasix at a dose of 40 mg IV every 12 hours. Platelet count currently is down to 30. DIC profile was essentially negative. The inflammatory markers from yesterday were elevated. On 05/22/2020 currently the patient remains on BiPAP at a pressure of 12/6 with an FiO2 of 90%. Her saturations remained marginal. The patient is generating adequate tidal volumes of 570 on her machine. She was started on diuretics yesterday and the patient has been negative fluid balance of 2 L over the past 24 hours. She is awake and calm and comfortable. She wasn't having issues with thrombocytopenia. The platelet count today is 23. Hematology is going to evaluate the patient. The coagulation profile is within normal limits. LDH level is at 1590 with a CRP of less than 5. She is awake and alert. She is following commands and answering questions face is able to take sips of soup and oatmeal. She is resting comfortably in bed. She remains on IV Solu-Medrol. She is also on Lasix 40 mg IV every 12 hours. She is also on Levemir insulin 15 units along with a prescription coverage. No anticoagulation for now because of her underlying thrombocytopenia. On 05/23/2020 I'm seeing the patient for a follow-up. She is awake and alert. She still on a BiPAP at a pressure of 12/6 cm of water. She has also an FiO2 of 90%. Overall, she is awake and alert and she is following commands and answering questions. She remains in good spirits she is calm and comfortable. No new complaints pH remains on IV Solu-Medrol. She also on Lasix 40 mg every 12 hours. Her platelet counts are still low at 19,000. The patient was seen by hematology. The patient was given units of cryoprecipitate yesterday. In terms of her pulmonary status, the patient is stable. The patient is not having any signs of bleeding. She is unable to tolerate some oral intake. In terms of her inflammatory markers, the levels are still up with an LDH level of 161, CRP of less than 5. Her AHI the antibodies came back negative. Rest of the blood work is all within normal limits. I will see her condition essentially unchanged compared to yesterday. In terms of her blood sugar control, the patient is on Levemir insulin 15 units in addition to NovoLog 5 units with meals and a sliding scale coverage. No chest x-ray from today. Her last chest x-ray was from yesterday. 05/24/2020, the patient remains on BiPAP 12/6 with an FiO2 of 90%. She is on IV Solu-Medrol. Platelet counts remain unchanged at 19,000. Her blood work from today shows some mild transaminitis. LDH level is 1541, nor and the CRP level is less than 5, lower. The white cell count is at 4 with a hemoglobin of 12.8. No new complaints pH is able to communicate. She is tolerating diet. No nausea. No vomiting. No diarrhea. No abdominal pain. She is on Levemir insulin 20 units along with NovoLog 5 units with meals and a sliding scale coverage. Her current pulse ox is 88%. Unable to wean her off the BiPAP for now. Chest x-ray showing some limited improvement in aeration of the lungs bilaterally. On examination, she continues to have some crackles. She does have some underlying cardiomegaly on the chest x-ray and the lower lobe pulmonary infiltrates have slightly improved on the most recent chest x-ray was done today. State Manager of the case regarding the thrombocytopenia. Cardiology is also on the case regarding hypertension. She is currently on a combination of lisinopril and hydrochlorothiazide. 05/25/2020 the patient remains on 12/6 BiPAP with an FiO2 of 90%. She remains BiPAP dependent and her current pulse ox is around 90% and she is unable to wean off her FiO2. No significant tachypnea. Her respiratory rate currently is at mid 20s and her tidal volumes above 450. She is having some discomfort in her chest probably related to some heartburn. Oral intake is minimal and the pina ent is basically taking shakes and soft diet. Her platelet count today is down to 18. Hematology is monitoring this and the recommendations is to transfuse this patient with platelets under 15 K and some cryoprecipitate once the fibrinogen under 100.. The patient is not having any bleeding complications for now. On her blood work, she has a sodium of 129 and the renal function is stable. Her LFTs are still abnormal and she has some mild chest and pneumonitis. LDH is 1438 and the CRP level is less than 5. D-dimer from yesterday was 0.7. No recent chest x-ray from today. The chest x-ray from yesterday was showing bilateral pulmonary infiltrates more so in the lung bases more so on the left. As far as treatment, she remains on IV Solu-Medrol 60 mg every 6 hours and she is also on Lasix 40 mg on a daily basis to maintain her fluid balance. 2020, patient remains on BiPAP with an FiO2 of 100% and the pressures of 12/6. Current pulse ox is around 90%. Afebrile. Hemodynamically stable. Continues to have a respiratory rate in the mid 20s. She is very much tolerant to the BiPAP and she has limited reserve as the patient desaturates with coughing, talking, movement, etc. She is still trying to keep on with her nutrition through shakes and the patient is also eating. The inflammatory markers are still pending for today. The LDH from yesterday was 1438 and the CRP was 5.4 and as such the LDH level continues to be elevated. D-dimer is low at 0.5. Platelet count is at 19 and hematology is on the case. No platelet transfusions unless her platelet count is less than 15,000 per hematology. Otherwise, no other significant events. The patient remains on IV Solu-Medrol. She is currently at a dose of 40 mg every 12 hours of the patient's other medical dose was tapered yesterday. She has been the hospital for more than 3 weeks and she's been on steroids since. Most recent chest x-ray from today showing stable bilateral pulmonary infiltrates and the infiltrates are diffuse involving the upper and lower lobes bilaterally. Lung volumes are essentially small. She is also on Lasix once daily and we stopped her hydrochlorothiazide. Her sodium level today is pending, from yesterday was 129, she does have some ongoing transaminitis. Patient was reevaluated today on 05/27/2020, remains on BiPAP. 100% FiO2, with IPAP of 12 and EPAP of 6, and her O2 saturation remains marginal. Patient looks comfortable. Chest x-ray continues to show bilateral patchy infiltrates, not severe enough to explain all her profound hypoxemia. Hence I am recommending a CT angiogram on this patient to rule out the possibility of pulmonary embolism. D-dimer is borderline elevated. Patient cannot go on heparin because of her platelets, however if we need to give her heparin, will place the patient on argatroban CBC is relatively normal otherwise. Her sodium remains low at 127, remains on fluid restrictions, and at times she received diuretics. Her creatinine today is 0.77 liver enzymes remain elevated with AST of 97 ALT of 218 and alkaline phosphatase of 229 Reevaluated today on 05/28/2020, remains on BiPAP on 100%, IPAP of 12 EPAP of 6, continues to have marginal O2 saturations. Patient continues to have low platelets, CT angiogram of the chest which was ordered yesterday was negative. Surprisingly, the patient is doing well clinically, does not complain of shortness of breath although her O2 saturation is marginal. CBC is relatively normal today except for low platelets of 18.5. Sodium remains low at 126. Renal profile showed a BUN of 44 creatinine 0.70. Liver enzymes remain borderline elevated with AST of 210 and alkaline phosphatase of 227. Patient was reevaluated today on 05/29/2020, remains on BiPAP and on the percent FiO2, IPAP of 12 EPAP of 6, O2 saturation remains very marginal at best. Surprisingly, and clinically the patient continues to do well, does not seem to be in any distress. Patient remains on the multiple medications/COVID-19 cocktail. Remains on steroids, today I increased her methylprednisolone 40 mg IV push every 6 hours. Sodium remains low in spite of fluid restriction and demeclocycline. WBC count is 2.7, platelets remained low at 23,000. BUN is 52 creatinine 0.73, Lasix remains on hold. Transaminases are borderline elevated. Patient was reevaluated today on 05/30/2020, no major change in the last 24 hours, remains on BiPAP, remains with marginal O2 saturation, remains on relatively high FiO2 100%, she is also on IPAP of 12 EPAP of 6, no foreign exchange position clerk the last 24 hours or even in the last 1 week. Remains on steroids, she is now on methylprednisolone at 40 mg IV push every 6 hours, patient is not eating well, I am recommending TPN via PICC line. Labs including electrolytes, renal profile, CBC were all reviewed and noted. C-reactive protein on this patient was not done today, but the last one was 0.8. Sodium remains low at 126. Renal profile is normal. Bicarb is 36 Objective - Vital Signs Vital signs: Vital Signs Temp 98.4 F 05/30/20 08:00 Pulse 79 05/30/20 12:00 Resp 22 05/30/20 12:00 BP 105/55 05/30/20 12:00 Pulse Ox 88 L 05/30/20 12:00 Intake & Output 05/29/20 05/30/20 05/30/20 18:59 06:59 18:59 Intake Total 740 Output Total 1150 Balance 740 -1150 Weight 127 kg 132 kg 132 kg Intake: Oral 740 Output: Urine 1150 Other: Voiding Method Indwelling Catheter Indwelling Catheter Indwelling Catheter - Exam Physical Exam: Revealed a 59-year-old female on BiPAP, 100 percent FiO2. Head: Is atraumatic normocephalic. HEENT:[Neck is supple.] [No neck masses.] [No thyromegaly.] [No JVD.] Chest: [Symmetrical chest expansion, crackles at the bases bilaterally. Cardiac Exam: [Normal S1 and S2, no S3 gallop, no murmur.] Abdomen: [Soft, nontender, no megaly, no rebound, no guarding, normal bowel sounds.] Extremities: [No clubbing, no edema, no cyanosis.] Neurological Exam: [No focal neurologic deficit.] Alert and oriented 3. Psychiatric: Normal mood affect and normal mental status examination. - Labs CBC & Chem 7: 05/30/20 08:32 05/30/20 08:32 Labs: Abnormal Lab Results - Last 24 Hours (Table) 05/29/20 05/29/20 05/30/20 Range/Units 17:16 19:54 06:01 WBC (3.8-10.6) k/uL RDW (11.5-15.5) % Plt Count (150-450) k/uL Lymphocytes # (1.0-4.8) k/uL Sodium (137-145) mmol/L Chloride (98-107) mmol/L Carbon Dioxide (22-30) mmol/L BUN (7-17) mg/dL Glucose (74-99) mg/dL POC Glucose (mg/dL) 165 H 213 H 219 H (75-99) mg/dL Magnesium (1.6-2.3) mg/dL Total Bilirubin (0.2-1.3) mg/dL AST (14-36) U/L ALT (4-34) U/L Alkaline Phosphatase (38-126) U/L Total Protein (6.3-8.2) g/dL Albumin (3.5-5.0) g/dL 05/30/20 05/30/20 05/30/20 Range/Units 08:32 08:32 11:37 WBC 3.0 L (3.8-10.6) k/uL RDW 17.9 H (11.5-15.5) % Plt Count 26 L (150-450) k/uL Lymphocytes # 0.2 L (1.0-4.8) k/uL Sodium 126 L (137-145) mmol/L Chloride 87 L (98-107) mmol/L Carbon Dioxide 36 H (22-30) mmol/L BUN 42 H (7-17) mg/dL Glucose 224 H (74-99) mg/dL POC Glucose (mg/dL) 215 H (75-99) mg/dL Magnesium (1.6-2.3) mg/dL Total Bilirubin 1.5 H (0.2-1.3) mg/dL AST 92 H (14-36) U/L ALT 203 H (4-34) U/L Alkaline Phosphatase 243 H (38-126) U/L Total Protein 5.3 L (6.3-8.2) g/dL Albumin 2.7 L (3.5-5.0) g/dL 05/30/20 Range/Units 14:40 WBC (3.8-10.6) k/uL RDW (11.5-15.5) % Plt Count (150-450) k/uL Lymphocytes # (1.0-4.8) k/uL Sodium (137-145) mmol/L Chloride (98-107) mmol/L Carbon Dioxide (22-30) mmol/L BUN (7-17) mg/dL Glucose (74-99) mg/dL POC Glucose (mg/dL) (75-99) mg/dL Magnesium 2.5 H (1.6-2.3) mg/dL Total Bilirubin (0.2-1.3) mg/dL AST (14-36) U/L ALT (4-34) U/L Alkaline Phosphatase (38-126) U/L Total Protein (6.3-8.2) g/dL Albumin (3.5-5.0) g/dL Assessment and Plan Assessment: 1 acute Covid 19 related pneumonia, and ARDS. symptoms started on 04/28/2020, diagnosed to be positive on 04/29/2020 received rem,toci, and convalescent plasma 2 acute hypoxic respiratory failure secondary to above 3 fever secondary to above, resolved. 4 leukopenia, lymphopenia and thrombocytopenia secondary to above 5 elevation of inflammatory markers secondary to Covid 19 infection 6 obesity with a BMI of 47.0 7 diabetes mellitus type 2 8 hypertension 9 hyperlipidemia 10 hypothyroidism 7 thrombocytopenia most likely secondary to sepsis, and COVID-19 infection, being addressed by hematology on the case. 8 hyponatremia possibly SIADH related. Recommendation: Continue BiPAP. And titrate accordingly. Patient received all the different treatments for COVID-19 pneumonia. Continue to hold any medication that may affect platelets Continue fluid restrictions continue demeclocycline 150 mg twice a day Increase Solu-Medrol to 40 mg IV push every 6 hours. Prognosis is definitely poor and guarded. We will recommend TPN for this patient. We'll consult real estate marketing coordinator. We'll continue to follow. Time with Patient: Less than 30
[2020-05-30 17:32] LABS: Glucose,Whole Blood 188 mg/dL (75-99)
[2020-05-30] MEDS ORDERED: MVI, ADULT NO.4 WITH VIT K 10 ML, TRACE (CONC-1ML/DOSE) 1 ML, CALCIUM GLUCONATE 1 GM, S... IV SCH ×7 (18:00)
[2020-05-30] MEDS: NAPHAZOLINE-PHENIRA 0.025-0.3% DROPS 15 ML BTL BOTH EYES SCH ×2 (18:11→20:22)
--- NOTE | 2020-05-30 18:16 | P.PN ---
Subjective Progress Note Date: 05/30/20 Principal diagnosis: Sepsis, Respiratory failure, DIC Platelet count 26K today, no s/s bleeding. On Bipap no blade changer the last week. Methylprednisolone at 40 mg IV push every 6 hours continued,remains hyponatremic Objective - Vital Signs Vital signs: Vital Signs Temp 98.4 F 05/30/20 08:00 Pulse 89 05/30/20 08:00 Resp 22 05/30/20 08:00 BP 120/72 05/30/20 08:00 Pulse Ox 89 L 05/30/20 08:00 Intake & Output 05/29/20 05/30/20 05/30/20 18:59 06:59 18:59 Intake Total 740 Output Total 1150 Balance 740 -1150 Weight 127 kg 132 kg Intake: Oral 740 Output: Urine 1150 Other: Voiding Method Indwelling Catheter Indwelling Catheter Indwelling Catheter - Exam - Constitutional General appearance: mild distress, morbidly obese BIpap - EENT Eyes: anicteric sclerae, EOMI ENT: hearing grossly normal - Respiratory Respiratory: bilateral: diminished - Cardiovascular Heart sounds: normal: S1, S2 leg Peripheral Edema: bilateral: Trace - Neurologic Neurologic: CNII-XII intact - Musculoskeletal Musculoskeletal: strength equal bilaterally - Psychiatric Psychiatric: A&O x's 3, appropriate affect, intact judgment & insight - Labs CBC & Chem 7: 05/30/20 08:32 05/30/20 08:32 Labs: Abnormal Lab Results - Last 24 Hours (Table) 05/29/20 05/29/20 05/30/20 Range/Units 17:16 19:54 06:01 WBC (3.8-10.6) k/uL RDW (11.5-15.5) % Plt Count (150-450) k/uL Lymphocytes # (1.0-4.8) k/uL Sodium (137-145) mmol/L Chloride (98-107) mmol/L Carbon Dioxide (22-30) mmol/L BUN (7-17) mg/dL Glucose (74-99) mg/dL POC Glucose (mg/dL) 165 H 213 H 219 H (75-99) mg/dL Total Bilirubin (0.2-1.3) mg/dL AST (14-36) U/L ALT (4-34) U/L Alkaline Phosphatase (38-126) U/L Total Protein (6.3-8.2) g/dL Albumin (3.5-5.0) g/dL 05/30/20 05/30/20 05/30/20 Range/Units 08:32 08:32 11:37 WBC 3.0 L (3.8-10.6) k/uL RDW 17.9 H (11.5-15.5) % Plt Count 26 L (150-450) k/uL Lymphocytes # 0.2 L (1.0-4.8) k/uL Sodium 126 L (137-145) mmol/L Chloride 87 L (98-107) mmol/L Carbon Dioxide 36 H (22-30) mmol/L BUN 42 H (7-17) mg/dL Glucose 224 H (74-99) mg/dL POC Glucose (mg/dL) 215 H (75-99) mg/dL Total Bilirubin 1.5 H (0.2-1.3) mg/dL AST 92 H (14-36) U/L ALT 203 H (4-34) U/L Alkaline Phosphatase 243 H (38-126) U/L Total Protein 5.3 L (6.3-8.2) g/dL Albumin 2.7 L (3.5-5.0) g/dL Assessment and Plan Plan: - Imaging and Cardiology Chest x-ray: report reviewed Assessment and Plan Thrombocytopenia: ITP versus DIC (disseminated intravascular coagulation) 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 No aspirin, NSAIDs or anticoagulation for low platelet count. Daily CBC, CMP Platelets 26K Monitor LFTs and COags If signs of bleeding transfuse platelets and recheck fibrinogen for option of cryo (if s/s bleeding)
[2020-05-30] MEDS: INSULIN DETEMIR (LEVEMIR) 100 UNIT/ML SYR SQ SCH (20:21)
[2020-05-30] MEDS: BACLOFEN 10 MG TAB PO SCH (20:22)
[2020-05-31 00:02] LABS: Glucose,Whole Blood 276 mg/dL (75-99)
[2020-05-31 06:36] LABS: Glucose,Whole Blood 260 mg/dL (75-99)
[2020-05-31] MEDS: PANTOPRAZOLE 40 MG TABLET PO SCH ×2 (06:38→17:18)
[2020-05-31] MEDS: metFORMIN 500 MG TAB PO SCH ×3 (06:38→17:18)
[2020-05-31] MEDS: LORazepam 2 MG/ML INJ IV PRN ×2 (06:38→19:26)
[2020-05-31] MEDS: methylPREDNISolone SOD SUCCI 40 MG/ML 1 ML VIAL IV SCH ×4 (06:38→23:03)
[2020-05-31] MEDS: LEVOTHYROXINE 75 MCG TAB PO SCH (06:39)
[2020-05-31] MEDS: GLIMEPIRIDE 4 MG TAB PO SCH (06:39)
[2020-05-31] MEDS: INSULIN ASPART (NovoLOG) 100 UNIT/ML VIAL SQ SCH ×7 (06:39→20:27)
[2020-05-31] MEDS: CHOLECALCIFEROL 25 MCG (1000 IU) TABLET PO SCH (08:26)
[2020-05-31] MEDS: ATORVASTATIN 40 MG TAB PO SCH (08:26)
[2020-05-31] MEDS: GABAPENTIN 300 MG CAP PO SCH ×4 (08:26→20:26)
[2020-05-31] MEDS: SENNOSIDES-DOCUSATE SODIUM 1 EACH TAB PO SCH (08:26)
[2020-05-31] MEDS: ZINC SULFATE 220 MG CAP PO SCH (08:26)
[2020-05-31] MEDS: MAG HYDROX/AL HYDROX/SIMETH 30 ML CUP PO SCH ×4 (08:27→20:26)
[2020-05-31] MEDS: ASCORBIC ACID 500 MG TAB PO SCH (08:27)
[2020-05-31] MEDS: FAT EMULSION 20% 250 ML in EMPTY BAG 1 BAG IV SCH (08:27)
[2020-05-31] MEDS: DEMECLOCYCLINE 150 MG TAB PO SCH ×2 (08:27→20:26)
[2020-05-31] MEDS: allopurinoL 100 MG TAB PO SCH (08:27)
[2020-05-31] MEDS: lisinopriL 10 MG TAB PO SCH (08:27)
[2020-05-31] MEDS: FERROUS SULFATE 325 MG TAB PO SCH (08:27)
[2020-05-31] MEDS: CYANOCOBALAMIN 500 MCG TAB PO SCH (08:27)
[2020-05-31] MEDS: ESCITALOPRAM 20 MG TAB PO SCH (08:30)
[2020-05-31] MEDS: ACETAMINOPHEN TAB 500 MG TAB PO PRN ×2 (08:41→20:26)
[2020-05-31] MEDS: NAPHAZOLINE-PHENIRA 0.025-0.3% DROPS 15 ML BTL BOTH EYES SCH ×4 (08:47→20:27)
[2020-05-31 11:03] LABS: Ionized Calcium 4.6 mg/dL (4.5-5.3)
[2020-05-31 11:17] LABS: Anisocytosis Slight; Basophils % (A) 0 %; Eosinophils % (A) 0 %; HCT 34.4 % (34.0-46.0); HGB 11.3 gm/dL (11.4-16.0); Lymphocytes # (A) 0.2 k/uL (1.0-4.8); Lymphocytes % (A) 9 %; MCH 29.4 pg (25.0-35.0); Mean Platelet Volume 9.7; Monocytes # (A) 0.1 k/uL (0-1.0); Monocytes % (A) 4 %; Neutrophils # (A) 1.7 k/uL (1.3-7.7); Neutrophils % (A) 86 %; RBC 3.87 m/uL (3.80-5.40); RDW 18.5 % (11.5-15.5)
[2020-05-31 11:21] LABS: ALT 185 U/L (4-34); AST 83 U/L (14-36); African American GFR (CKD) >90 (>60 ml/min/1.73 sqM); Albumin 2.6 g/dL (3.5-5.0); Alkaline Phosphatase 233 U/L (38-126); Anion Gap 4 mmol/L; Blood Urea Nitrogen 38 mg/dL (7-17); Calcium 8.6 mg/dL (8.4-10.2); Carbon Dioxide 35 mmol/L (22-30); Chloride 88 mmol/L (98-107); Glucose 209 mg/dL (74-99); Magnesium 2.2 mg/dL (1.6-2.3); Non-African American GFR(CKD) >90 (>60 ml/min/1.73 sqM); Phosphorus 3.6 mg/dL (2.5-4.5); Potassium 3.9 mmol/L (3.5-5.1); Sodium 127 mmol/L (137-145); Total Bilirubin 1.3 mg/dL (0.2-1.3); Total Protein 5.1 g/dL (6.3-8.2)
[2020-05-31 11:23] LABS: Prothrombin Time 11.1 sec (9.0-12.0)
[2020-05-31 11:24] LABS: Platelet Count 33 k/uL (150-450)
[2020-05-31 11:35] LABS: Partial Thromboplastin Time 20.8 sec (22.0-30.0)
--- NOTE | 2020-05-31 11:58 | P.PN ---
Subjective Progress Note Date: 05/31/20 Principal diagnosis: Sepsis, Respiratory failure, DIC WBC = 2., PLatelets 26K. She continues about the same in regards to respiratory status. Objective - Vital Signs Vital signs: Vital Signs Temp 98 F 05/31/20 11:44 Pulse 84 05/31/20 11:44 Resp 20 05/31/20 11:44 BP 109/56 05/31/20 11:44 Pulse Ox 87 L 05/31/20 11:44 Intake & Output 05/30/20 05/31/20 05/31/20 18:59 06:59 18:59 Intake Total 400 100 Output Total 700 Balance 400 -700 100 Weight 132 kg 134 kg Intake: Oral 400 100 Output: Urine 700 Other: Voiding Method Indwelling Catheter Indwelling Catheter Indwelling Catheter - Exam - Constitutional General appearance: mild distress, morbidly obese BIpap - EENT Eyes: anicteric sclerae, EOMI ENT: hearing grossly normal - Respiratory Respiratory: bilateral: diminished - Cardiovascular Heart sounds: normal: S1, S2 leg Peripheral Edema: bilateral: Trace - Neurologic Neurologic: CNII-XII intact - Musculoskeletal Musculoskeletal: strength equal bilaterally - Psychiatric Psychiatric: A&O x's 3, appropriate affect, intact judgment & insight - Labs CBC & Chem 7: 05/31/20 10:01 05/31/20 10:01 Labs: Abnormal Lab Results - Last 24 Hours (Table) 05/30/20 05/30/20 05/30/20 Range/Units 14:40 17:08 23:59 WBC (3.8-10.6) k/uL Hgb (11.4-16.0) gm/dL RDW (11.5-15.5) % Plt Count (150-450) k/uL Lymphocytes # (1.0-4.8) k/uL APTT (22.0-30.0) sec Sodium (137-145) mmol/L Chloride (98-107) mmol/L Carbon Dioxide (22-30) mmol/L BUN (7-17) mg/dL Glucose (74-99) mg/dL POC Glucose (mg/dL) 188 H 276 H (75-99) mg/dL Magnesium 2.5 H (1.6-2.3) mg/dL AST (14-36) U/L ALT (4-34) U/L Alkaline Phosphatase (38-126) U/L Total Protein (6.3-8.2) g/dL Albumin (3.5-5.0) g/dL 05/31/20 05/31/20 05/31/20 Range/Units 06:35 10:01 10:01 WBC 2.0 L (3.8-10.6) k/uL Hgb 11.3 L (11.4-16.0) gm/dL RDW 18.5 H (11.5-15.5) % Plt Count 33 L (150-450) k/uL Lymphocytes # 0.2 L (1.0-4.8) k/uL APTT (22.0-30.0) sec Sodium 127 L (137-145) mmol/L Chloride 88 L (98-107) mmol/L Carbon Dioxide 35 H (22-30) mmol/L BUN 38 H (7-17) mg/dL Glucose 209 H (74-99) mg/dL POC Glucose (mg/dL) 260 H (75-99) mg/dL Magnesium (1.6-2.3) mg/dL AST 83 H (14-36) U/L ALT 185 H (4-34) U/L Alkaline Phosphatase 233 H (38-126) U/L Total Protein 5.1 L (6.3-8.2) g/dL Albumin 2.6 L (3.5-5.0) g/dL 05/31/20 Range/Units 10:01 WBC (3.8-10.6) k/uL Hgb (11.4-16.0) gm/dL RDW (11.5-15.5) % Plt Count (150-450) k/uL Lymphocytes # (1.0-4.8) k/uL APTT 20.8 L (22.0-30.0) sec Sodium (137-145) mmol/L Chloride (98-107) mmol/L Carbon Dioxide (22-30) mmol/L BUN (7-17) mg/dL Glucose (74-99) mg/dL POC Glucose (mg/dL) (75-99) mg/dL Magnesium (1.6-2.3) mg/dL AST (14-36) U/L ALT (4-34) U/L Alkaline Phosphatase (38-126) U/L Total Protein (6.3-8.2) g/dL Albumin (3.5-5.0) g/dL Assessment and Plan Plan: - Imaging and Cardiology Chest x-ray: report reviewed Assessment and Plan Thrombocytopenia: 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 No aspirin, NSAIDs or anticoagulation for low platelet count. Daily CBC, CMP Platelets 26K Monitor LFTs and COags If signs of bleeding transfuse platelets and recheck fibrinogen for option of cryo (if s/s bleeding)
[2020-05-31 12:12] LABS: Glucose,Whole Blood 242 mg/dL (75-99)
--- NOTE | 2020-05-31 14:45 | P.PN ---
Subjective Progress Note Date: 05/30/20 [id number] female admitted with acute hypoxic respiratory failure secondary to covid- 19 pneumonia, hypertension, diabetes mellitus, obesity and multiple other medical issues. Oxygen requirements worsened, requiring BiPAP. Chest x-ray reporting bilateral interstitial and patchy airspace opacities remain ,mild cardiomegaly. Denies chest pain, palpitations, reports chest soreness from nonproductive cough. Received a dose of Actemra, maintained on Remdesevir, IV steroids , antibiotics and multivitamin supplements. Afebrile, LDH and C- reactive protein trending down. 05/07/2020 Maintained on Remdesevir/covid regimine. Continues to require BiPAP 100% to maintain O2 sats in the high 80s to 90s. Complains of anxiety regarding mask. Deep breaths trigger cough. Afebrile. Labs pending. Denies chest pain, palpitations. 05/08/2020 sitting up at side of bed, continues to require 100% BiPAP. Ma intained on Covid regimen including Remdesevir. T-max 99.1. Occasional nonproductive cough. Denies chest pain, 05/09/20 unable to tolerate BiPAP decreased to 90% with O2 sats decreased to 84%, currently back up on 100% BiPAP, maintaining O2 sats in the 90s on 100s. T-max 99.1, labs pending. Anxiety controlled. Maintained on Covid regimen, completed 5 doses of Remdesevir. Labs pending. 05/10/2020 maintaining O2 sats in the low 90s on 95% BiPAP. Continues on IV steroids, vitamin C, vitamin D, zinc. Afebrile. Reports less coughing. Denies chest pain, palpitations. 05/13/2020 patient feeling better, reports she has " turned the corner". Maintaining O2 sats in the 90s on BiPAP 70%. Minimal nonproductive cough. Denies chest pain, palpitations. Afebrile, Received Lasix yesterday, potassium 3.4.,creatinine 0.69. 05/14/2020 continues feeling better, maintaining O2 sats in the 90s on BiPAP 70%. Occasional nonproductive cough. Mild pedal edema. Denies chest pain, palpitations. 05/15/2020 maintaining O2 sats in the low 90s on 70% BiPAP. Received Lasix yesterday, less pedal edema, renal function stable. Breathing easier. Blood sugars controlled. 05/16/2020 maintaining O2 sats in the low 90s on nonrebreather and high flow airvo. Afebrile, sodium trending down, 123, creatinine 1.8. Continues to feel better and reporting less shortness of breath. 05/17/2020 80% BiPAP, maintaining O2 sats in the 90s. Reports last night she tolerated 15 minutes on 15 L high flow nasal cannula plus nonrebreather mask .Nonproductive cough. Less tired, reports more energy. Blood sugars controlled. Denies chest pain, palpitations. Afebrile. 05/20/2020 maintained on BiPAP 90%, maintaining O2 sats in the high 80s to low 90s. Hemoglobin 11.7, Platelets decreased to 30, currently off of Lovenox .Afebrile, WBC 2.9. Chest x-ray pending. 05/21/2020 continues on BiPAP 90% maintaining O2 sats in the high 80s. Reports that well, feels good. Afebrile. Yesterday's x-ray reported persistent low lung volumes, cardiomegaly, bilateral multifocal opacity is consistent with Covid 19 infectionno significant change. Doppler reported Bilateral lower extremities negative for DVT. Diuresing well on Lasix IV push with 24-hour I&O reflecting a negative fluid balance. BUN 25, creatinine 0.7. Hit antibodies pending. 05/22/2020 maintaining O2 sats of 87 to low 90s on 90% BiPAP. Diuresing well on Lasix IV push with 24-hour I&O reflecting a negative fluid balance. BUN 27/creatinine 0.73. Hemoglobin 13.5, platelets 23-anticoagulation remains on hold. Hematology consult in place, recommendations pending. Reports sleeping well with no shortness of breath. Afebrile, normal WBC. 05/23/2020 remains on same BiPAP settings of 90% maintaining O2 sats of 90. in October she was referred to hematology/Dr. Carrion further workup regarding pancytopenia. Bone marrow was completed and was told it was fine and that she had iron deficient anemia and needed to proceed with iron transfusions. Reports she did not have a chance to start the transfusions prior to being hospitalized with Covid. Platelets currently 19 without evidence of bleeding, no petechiae .evaluated by hematology yesterday with recommendations noted and appreciated. Received transfusion of cryoprecipitate with fibrinogen up to 158. 05/24/2020 continues on BiPAP 90% to maintain O2 sats in the high 80s to low 90s. Chest x-ray pending. Telemetry sinus rhythm. hypertensive this morning, hydrochlorothiazide added to med regimen. Labs pending. Good diet intake .Hyperglycemic, blood sugars ranging from 160s to 220. 05/27/2020 maintained on 100% BiPAP, with O2 sats of low 90s. Chest x-ray reporting increasing bilateral airspace disease, hypoventilatory changes. D- dimer 0.65. CTA ordered. Hemoglobin 12.6, platelets 19. Sodium 127, on fluid restrictions. BUN 51, creatinine 0.77. T bili and LFTs remain elevated. C- reactive protein 0.8 05/28/2020 continues on BiPAP 100% maintaining marginal O2 sats. Chest CTA reported suboptimal study without significant central pulmonary embolism, cannot entirely exclude smaller segmental/subsegmental PE, worsening bilateral multi focal/confluent groundglass opacity. T bili 1.7, LFTs elevated, minimal change. Abdominal ultrasound pending. Platelets increased to 22. Sodium 126. BUN 44, creatinine 0.7. Blood sugars controlled. 05/29/2020 maintained on 100% BiPAP, O2 sats remain marginal, in the high 80s. Complains of fatigue. Labs pending. 05/31/2019 BiPAP 100%, maintaining O2 sats in the 80s. Reports anxiety/panic attack during the night, relieved with Ativan. Bicarb 36. Maintained on Declomycin,Sodium 126, platelets 26. BUN 42, creatinine 0.68. T bili, LFTs trending down. Albumin 2.7. Diet intake has been around 25% but this morning and did not eat anything. PICC line placed yesterday for TPN. Objective - Vital Signs Vital signs: Vital Signs Temp 98.4 F 05/30/20 08:00 Pulse 89 05/30/20 08:00 Resp 22 05/30/20 08:00 BP 120/72 05/30/20 08:00 Pulse Ox 89 L 05/30/20 08:00 Intake & Output 05/29/20 05/30/20 05/30/20 18:59 06:59 18:59 Intake Total 740 Output Total 1150 Balance 740 -1150 Weight 127 kg 132 kg Intake: Oral 740 Output: Urine 1150 Other: Voiding Method Indwelling Catheter Indwelling Catheter Indwelling Catheter - Exam PHYSICAL EXAM: VITAL SIGNS: [As above] GENERAL: Alert and oriented 3, Sitting up in bed wearing BiPAP, fatigued HEENT: Conjunctivae normal. eyes normal. CARDIOVASCULAR: S1, S2 regular.No murmur RESPIRATION: Diminished bases with bibasilar crackles ABDOMEN: Soft, nontender,nondistended.+BS, No guarding, no masses palpable. LEGS: Trace edema, no cyanosis, no clubbing. No calf pain. NERVOUS SYSTEM: Cranial N 2-12 grossly normal.No focal deficits. Skin: Warm and dry, no rash - Labs CBC & Chem 7: 05/31/20 10:01 05/31/20 10:01 Labs: Abnormal Lab Results - Last 24 Hours (Table) 05/29/20 05/29/20 05/30/20 Range/Units 17:16 19:54 06:01 WBC (3.8-10.6) k/uL RDW (11.5-15.5) % Plt Count (150-450) k/uL Lymphocytes # (1.0-4.8) k/uL Sodium (137-145) mmol/L Chloride (98-107) mmol/L Carbon Dioxide (22-30) mmol/L BUN (7-17) mg/dL Glucose (74-99) mg/dL POC Glucose (mg/dL) 165 H 213 H 219 H (75-99) mg/dL Total Bilirubin (0.2-1.3) mg/dL AST (14-36) U/L ALT (4-34) U/L Alkaline Phosphatase (38-126) U/L Total Protein (6.3-8.2) g/dL Albumin (3.5-5.0) g/dL 05/30/20 05/30/20 05/30/20 Range/Units 08:32 08:32 11:37 WBC 3.0 L (3.8-10.6) k/uL RDW 17.9 H (11.5-15.5) % Plt Count 26 L (150-450) k/uL Lymphocytes # 0.2 L (1.0-4.8) k/uL Sodium 126 L (137-145) mmol/L Chloride 87 L (98-107) mmol/L Carbon Dioxide 36 H (22-30) mmol/L BUN 42 H (7-17) mg/dL Glucose 224 H (74-99) mg/dL POC Glucose (mg/dL) 215 H (75-99) mg/dL Total Bilirubin 1.5 H (0.2-1.3) mg/dL AST 92 H (14-36) U/L ALT 203 H (4-34) U/L Alkaline Phosphatase 243 H (38-126) U/L Total Protein 5.3 L (6.3-8.2) g/dL Albumin 2.7 L (3.5-5.0) g/dL Assessment and Plan Assessment: Sepsis, present on admission secondary to Acute Covid-19 pneumonia, status post convalescent plasma, received tocilizumab, completed Remdesevir. Acute hypoxic respiratory failure secondary to the above,BiPAP dependent. Hyponatremia, hypovolemic Acute anxiety secondary to the above and BiPAP mask, improved leukopenia, lymphopenia and thrombocytopenia secondary to above, hematology following. Low grade DIC as per hematology, status post cryoprecipitate Viral hepatitis, LFTs elevated secondary to Covid Hit antibodies negative Diabetes mellitus type 2 Hypertension Hyperlipidemia Hypothyroidism Morbid obesity, BMI 47 Plan: Continue on current medication regimen, monitoring and symptomatic treatment. TPN. Nephrology consulted regarding hyponatremia, on Declomycin and fluid restriction. COVID cocktail.Anticoagulation remains on hold secondary to low platelets.Close monitoring of electrolytes and coag's with repeat labs ordered for a.m. Prognosis guarded given multiple complex medical issues. The impression and plan of care has been dictated as directed. : I performed a history and examination of this patient, discussed the same with the dictator. I agree with the dictator's note ,documented as a scribe. Any additional findings or plans will be noted.
--- NOTE | 2020-05-31 14:59 | P.PN ---
Subjective Progress Note Date: 05/31/20 [id number] female admitted with acute hypoxic respiratory failure secondary to covid- 19 pneumonia, hypertension, diabetes mellitus, obesity and multiple other medical issues. Oxygen requirements worsened, requiring BiPAP. Chest x-ray reporting bilateral interstitial and patchy airspace opacities remain ,mild cardiomegaly. Denies chest pain, palpitations, reports chest soreness from nonproductive cough. Received a dose of Actemra, maintained on Remdesevir, IV steroids , antibiotics and multivitamin supplements. Afebrile, LDH and C- reactive protein trending down. 05/07/2020 Maintained on Remdesevir/covid regimine. Continues to require BiPAP 100% to maintain O2 sats in the high 80s to 90s. Complains of anxiety regarding mask. Deep breaths trigger cough. Afebrile. Labs pending. Denies chest pain, palpitations. 05/08/2020 sitting up at side of bed, continues to require 100% BiPAP. Ma intained on Covid regimen including Remdesevir. T-max 99.1. Occasional nonproductive cough. Denies chest pain, 05/09/20 unable to tolerate BiPAP decreased to 90% with O2 sats decreased to 84%, currently back up on 100% BiPAP, maintaining O2 sats in the 90s on 100s. T-max 99.1, labs pending. Anxiety controlled. Maintained on Covid regimen, completed 5 doses of Remdesevir. Labs pending. 05/10/2020 maintaining O2 sats in the low 90s on 95% BiPAP. Continues on IV steroids, vitamin C, vitamin D, zinc. Afebrile. Reports less coughing. Denies chest pain, palpitations. 05/13/2020 patient feeling better, reports she has " turned the corner". Maintaining O2 sats in the 90s on BiPAP 70%. Minimal nonproductive cough. Denies chest pain, palpitations. Afebrile, Received Lasix yesterday, potassium 3.4.,creatinine 0.69. 05/14/2020 continues feeling better, maintaining O2 sats in the 90s on BiPAP 70%. Occasional nonproductive cough. Mild pedal edema. Denies chest pain, palpitations. 05/15/2020 maintaining O2 sats in the low 90s on 70% BiPAP. Received Lasix yesterday, less pedal edema, renal function stable. Breathing easier. Blood sugars controlled. 05/16/2020 maintaining O2 sats in the low 90s on nonrebreather and high flow airvo. Afebrile, sodium trending down, 123, creatinine 1.8. Continues to feel better and reporting less shortness of breath. 05/17/2020 80% BiPAP, maintaining O2 sats in the 90s. Reports last night she tolerated 15 minutes on 15 L high flow nasal cannula plus nonrebreather mask .Nonproductive cough. Less tired, reports more energy. Blood sugars controlled. Denies chest pain, palpitations. Afebrile. 05/20/2020 maintained on BiPAP 90%, maintaining O2 sats in the high 80s to low 90s. Hemoglobin 11.7, Platelets decreased to 30, currently off of Lovenox .Afebrile, WBC 2.9. Chest x-ray pending. 05/21/2020 continues on BiPAP 90% maintaining O2 sats in the high 80s. Reports that well, feels good. Afebrile. Yesterday's x-ray reported persistent low lung volumes, cardiomegaly, bilateral multifocal opacity is consistent with Covid 19 infectionno significant change. Doppler reported Bilateral lower extremities negative for DVT. Diuresing well on Lasix IV push with 24-hour I&O reflecting a negative fluid balance. BUN 25, creatinine 0.7. Hit antibodies pending. 05/22/2020 maintaining O2 sats of 87 to low 90s on 90% BiPAP. Diuresing well on Lasix IV push with 24-hour I&O reflecting a negative fluid balance. BUN 27/creatinine 0.73. Hemoglobin 13.5, platelets 23-anticoagulation remains on hold. Hematology consult in place, recommendations pending. Reports sleeping well with no shortness of breath. Afebrile, normal WBC. 05/23/2020 remains on same BiPAP settings of 90% maintaining O2 sats of 90. in October she was referred to hematology/Dr. Carrion further workup regarding pancytopenia. Bone marrow was completed and was told it was fine and that she had iron deficient anemia and needed to proceed with iron transfusions. Reports she did not have a chance to start the transfusions prior to being hospitalized with Covid. Platelets currently 19 without evidence of bleeding, no petechiae .evaluated by hematology yesterday with recommendations noted and appreciated. Received transfusion of cryoprecipitate with fibrinogen up to 158. 05/24/2020 continues on BiPAP 90% to maintain O2 sats in the high 80s to low 90s. Chest x-ray pending. Telemetry sinus rhythm. hypertensive this morning, hydrochlorothiazide added to med regimen. Labs pending. Good diet intake .Hyperglycemic, blood sugars ranging from 160s to 220. 05/27/2020 maintained on 100% BiPAP, with O2 sats of low 90s. Chest x-ray reporting increasing bilateral airspace disease, hypoventilatory changes. D- dimer 0.65. CTA ordered. Hemoglobin 12.6, platelets 19. Sodium 127, on fluid restrictions. BUN 51, creatinine 0.77. T bili and LFTs remain elevated. C- reactive protein 0.8 05/28/2020 continues on BiPAP 100% maintaining marginal O2 sats. Chest CTA reported suboptimal study without significant central pulmonary embolism, cannot entirely exclude smaller segmental/subsegmental PE, worsening bilateral multi focal/confluent groundglass opacity. T bili 1.7, LFTs elevated, minimal change. Abdominal ultrasound pending. Platelets increased to 22. Sodium 126. BUN 44, creatinine 0.7. Blood sugars controlled. 05/29/2020 maintained on 100% BiPAP, O2 sats remain marginal, in the high 80s. Complains of fatigue. Labs pending. 05/31/2019 BiPAP 100%, maintaining O2 sats in the 80s. Reports anxiety/panic attack during the night, relieved with Ativan. Bicarb 36. Maintained on Declomycin,Sodium 126, platelets 26. BUN 42, creatinine 0.68. T bili, LFTs trending down. Albumin 2.7. Diet intake has been around 25% but this morning and did not eat anything. PICC line placed yesterday for TPN. 06/01/2019 BiPAP 100%, maintaining marginal O2 sats. Feels less short of breath. Required Ativan last night and her mild anxiety. Reports cough is better. Afebrile, WBC 2, platelets 33. Sodium 127. BUN 30, creatinine 0.52. T bili within normal limits, LFTs continue trending down. Denies chest pain, palpitations. Objective - Vital Signs Vital signs: Vital Signs Temp 98 F 05/31/20 11:44 Pulse 84 05/31/20 11:44 Resp 20 05/31/20 11:44 BP 109/56 05/31/20 11:44 Pulse Ox 87 L 05/31/20 11:44 Intake & Output 05/30/20 05/31/20 05/31/20 18:59 06:59 18:59 Intake Total 400 100 Output Total 700 Balance 400 -700 100 Weight 132 kg 134 kg 134 kg Intake: Oral 400 100 Output: Urine 700 Other: Voiding Method Indwelling Catheter Indwelling Catheter Indwelling Catheter - Exam PHYSICAL EXAM: VITAL SIGNS: [As above] GENERAL: Alert and oriented 3,Sitting up in bed wearing BiPAP, weak. HEENT: Conjunctivae normal. eyes normal. CARDIOVASCULAR: S1, S2 regular.No murmur RESPIRATION: Diminished bases with bibasilar crackles ABDOMEN: Soft, nontender,nondistended.+BS, No guarding, no masses palpable. LEGS: Trace edema, no cyanosis, no clubbing. No calf pain. NERVOUS SYSTEM: Cranial N 2-12 grossly normal.No focal deficits. Skin: Warm and dry, no rash - Labs CBC & Chem 7: 05/31/20 10:01 05/31/20 10:01 Labs: Abnormal Lab Results - Last 24 Hours (Table) 05/30/20 05/30/20 05/30/20 Range/Units 14:40 17:08 23:59 WBC (3.8-10.6) k/uL Hgb (11.4-16.0) gm/dL RDW (11.5-15.5) % Plt Count (150-450) k/uL Lymphocytes # (1.0-4.8) k/uL APTT (22.0-30.0) sec Sodium (137-145) mmol/L Chloride (98-107) mmol/L Carbon Dioxide (22-30) mmol/L BUN (7-17) mg/dL Glucose (74-99) mg/dL POC Glucose (mg/dL) 188 H 276 H (75-99) mg/dL Magnesium 2.5 H (1.6-2.3) mg/dL AST (14-36) U/L ALT (4-34) U/L Alkaline Phosphatase (38-126) U/L Total Protein (6.3-8.2) g/dL Albumin (3.5-5.0) g/dL 05/31/20 05/31/20 05/31/20 Range/Units 06:35 10:01 10:01 WBC 2.0 L (3.8-10.6) k/uL Hgb 11.3 L (11.4-16.0) gm/dL RDW 18.5 H (11.5-15.5) % Plt Count 33 L (150-450) k/uL Lymphocytes # 0.2 L (1.0-4.8) k/uL APTT (22.0-30.0) sec Sodium 127 L (137-145) mmol/L Chloride 88 L (98-107) mmol/L Carbon Dioxide 35 H (22-30) mmol/L BUN 38 H (7-17) mg/dL Glucose 209 H (74-99) mg/dL POC Glucose (mg/dL) 260 H (75-99) mg/dL Magnesium (1.6-2.3) mg/dL AST 83 H (14-36) U/L ALT 185 H (4-34) U/L Alkaline Phosphatase 233 H (38-126) U/L Total Protein 5.1 L (6.3-8.2) g/dL Albumin 2.6 L (3.5-5.0) g/dL 05/31/20 05/31/20 Range/Units 10:01 12:10 WBC (3.8-10.6) k/uL Hgb (11.4-16.0) gm/dL RDW (11.5-15.5) % Plt Count (150-450) k/uL Lymphocytes # (1.0-4.8) k/uL APTT 20.8 L (22.0-30.0) sec Sodium (137-145) mmol/L Chloride (98-107) mmol/L Carbon Dioxide (22-30) mmol/L BUN (7-17) mg/dL Glucose (74-99) mg/dL POC Glucose (mg/dL) 242 H (75-99) mg/dL Magnesium (1.6-2.3) mg/dL AST (14-36) U/L ALT (4-34) U/L Alkaline Phosphatase (38-126) U/L Total Protein (6.3-8.2) g/dL Albumin (3.5-5.0) g/dL Assessment and Plan Assessment: Sepsis, present on admission secondary to Acute Covid-19 pneumonia, status post convalescent plasma, received tocilizumab, completed Remdesevir. Acute hypoxic respiratory failure secondary to the above,BiPAP dependent. Hyponatremia, hypovolemic Acute anxiety secondary to the above and BiPAP mask, improved leukopenia, lymphopenia and thrombocytopenia secondary to above, hematology following. Low grade DIC as per hematology, status post cryoprecipitate Viral hepatitis, LFTs elevated secondary to Covid Hit antibodies negative Diabetes mellitus type 2 Hypertension Hyperlipidemia Hypothyroidism Morbid obesity, BMI 47 Plan: Continue on current medication regimen, monitoring and symptomatic treatment. TPN. Levemir dose adjusted , blood sugars climbing .close monitoring of Accu-Cheks .Nephrology consult in place, recommendations pending . Continue on Declomycin and fluid restriction. COVID cocktail.Anticoagulation remains on hold secondary to low platelet count.Close monitoring of electrolytes and coag's with repeat labs ordered for a.m. Prognosis guarded given multiple complex medical issues. The impression and plan of care has been dictated as directed. : I performed a history and examination of this patient, discussed the same with the dictator. I agree with the dictator's note ,documented as a scribe. Any additional findings or plans will be noted.
[2020-05-31 17:10] LABS: Glucose,Whole Blood 296 mg/dL (75-99)
--- NOTE | 2020-05-31 17:10 | P.PN ---
Subjective Progress Note Date: 05/31/20 Principal diagnosis: Acute hypoxic respiratory failure secondary to acute covid 19 pneumonia 79-year-old female patient, morbidly obese with a BMI of 47, was hospitalized for COVID 19 related pneumonia. The patient currently is hypoxic on 3 L of oxygen by nasal cannula. She has comorbidities including obesity with a BMI of 47, hypertension, diabetes mellitus and gout. She also has hyperlipidemia and hypothyroidism. The patient started getting symptoms approximately a week ago, on 04/28/2020 and the patient was diagnosed having Covid 19 infection for a primary care physician's office on 04/29.. She continued to have episodes of fever and subsequently she became progressively more short of breath necessitating emergency department visitation today and ultimately she was hospitalized. Her chest x-ray showing bilateral pulmonary infiltrates peripheral distribution more so on the right compared to the left. The patient was started on steroids.. She is slightly nauseated. She also has loss of taste and smell LDH level is currently at 802 with a CRP of 55 and she had a lactic acid level of 2.1 at the time of admission. There d-dimer is still pending for now. Her white cell count is at 1.4 and the patient is lymphopenic with a lymphocyte count of 0.6 and there is also a drop in her platelet count down to 80 and these are all manifestations of COVID 19 infection. On today's evaluation of 04/27/2020, the patient's oxygenation has gotten worse. I saw her in the emergency department yesterday and she was on 4 L. She progressively required higher oxygen flow and she went up to a high flow oxygen through the nasal cannula airvo which she feels a currently she is on a BiPAP at a pressure of 10/5 with an FiO2 of 100%. She is able to generate a tidal volume around 450-500. Respiratory rate is in the mid 30s low 40s. She feels well. She is in mild degree of respiratory distress. She is still able to converse and talk to her BiPAP mask. Her current pulse ox is 94%. 60 showing diffuse breath and pulmonary infiltrates consistent with Covid 19 related pneumonia. Her white cell count is still down at 1.2. Platelet count is at 70 now which is low. D-dimer is at 0.65, her LDH level is at 835 with a CRP of 56. She is on Decadron. I'm going to switch her to Solu-Medrol. She is currently taking REM should be considered for convalescent plasma and addition to Tocilizumab The patient is seen today 05/06/2020 in follow-up on the regular medical floor. She is currently sitting up in bed. Awake and alert in no acute distress. Cu rrently on BiPAP 10/5 and 100% FiO2. Current saturation 88%. Chest x-ray reveals mild, medically. Residual bilateral airspace disease. Improving compared to previous. This is day #3 of Remdesivir. She received convalescent plasma 1, tocilizumab. D-dimer 0.84. C-reactive protein 2.8. LDH 459. She remains on Decadron, IV Solu-Medrol, vitamin supplements. Patient was reevaluated today on 05/09/2020, remains on BiPAP, she is on 100%, O2 sats is 94%. Surprisingly, the patient seems to be doing well in spite of her significant O2 requirement and BiPAP. Patient received REM, she also received convalescent plasma and ACTEMRA. And so far does not seem to be making that significant turnaround and significant clinical improvement. CBC and basic metabolic profile are normal except for WBC count is 2.0 today. Patient was reevaluated today on 05/10/2020, still requiring significant amount of FiO2, she remains on BiPAP at 90% FiO2, she is on IPAP of 10 and EPAP of 5, and O2 saturation remains marginal. Clinically however the patient feels better breathing easier, and have d-dimer is not that significantly elevated but it is nonetheless abnormal. Hence I recommended a CT angiogram of the chest to be done today. Renal profile is normal. CBC continues to show leukopenia with WBC count of 2.0. Electrolytes are normal. Patient was reevaluated today on 05/11/2020, patient is basically about the same. Remains on BiPAP. Her FiO2 is still at 90%, and her O2 saturation is in the low 90s. Patient is on IPAP of 10 and EPAP of 5, seems to be very comfortable. CT angiogram of the chest yesterday showed bilateral interstitial infiltrates, no evidence of thromboembolic disease/pulmonary embolism. WBC count is 2.2 hemoglobin is 11.6. A left lites are normal renal profile is normal clinically the patient is fairly comfortable, however she is still requiring significant high FiO2. Reevaluated today on 05/12/2020, patient is feeling much better today, breathing a lot easier, she is now on 80% FiO2 remains on BiPAP with IPAP of 10 and EPAP of 5. But her FiO2 was cut down to 80%, and I will cut it down further to 70% and her O2 saturation seems to be significantly improved. Patient feels that she felt much better after the Lasix was given yesterday. I will recommend another dose of Lasix to be given today. Her CT angiogram of the chest yesterday questioned mild interstitial edema. However I felt it was all related to her underlying Covid 19 pneumonitis. Nonetheless Lasix was given, and clinically the patient felt better. Labs today were all reviewed she had WBC count of 2.3 hemoglobin 12.4 lites are normal renal profile remains normal. Progress note dated 05/13/2020. Currently, the patient remains on BiPAP, at 70%. She's feeling better today. She feels less short of breath. Her BiPAP settings are IPAP 10, and EPAP 5. I did tell the patient to move around when she is lying in bed. She should lie down on her right side, left side, supine, and if possible, try to prone herself. Current laboratory data includes a white count of 2, hemoglobin 11.7, hematocrit 35.2, platelet count 94,000. Sodium is 136, potassium 3.4, chlorides 101, CO2 33, anion gap 2, BUN [address], [address] angiogram on May 10 showed no evidence of pulmonary embolism, but did show moderately severe pulmonary interstitial edema/infiltrates. Progress note dated 05/14/2020. The patient remains on BiPAP at 70%. She feels much improved. Her IPAP of 10 and EPAP is fine. She's feeling much less short of breath. I did tell her to move around in bed, right side down, left side down, supine, and even on her stomach if she can. No new labs today to look at. No recent chest x-rays to evaluate either. Medications are appropriate at this time. CT angiogram from May 10 is reviewed. Progress note dated 05/15/2020. The patient remains on BiPAP, settings of IPAP 10, and EPAP of 5. She is on 70%. Her saturations are right around 90% or so. Despite that, the patient states that she is feeling much better. She has been moving around in bed. His been laying on her right side, left side, supine, even on her stomach at times. No new labs today other than a sodium of 137, potassium 4, chloride 98, CO2 34, anion gap 5, BUN 19, creatinine 0.67. The patient is seen today 05/16/2020 in follow-up on the selective care unit. She is currently resting fairly comfortably in bed. She is continued on BiPAP currently 10/5 and 70% FiO2. She is maintaining O2 saturations about 85-86%. Today she is feeling mostly tired and fatigued. Breathing is about the same. No better but no worse currently. She remains on IV Solu-Medrol, Lovenox, vitamin supplements. Blood glucose 146. The patient is seen today 05/17/2020 in follow-up on the selective care unit. She remains awake and alert in no acute distress. She is still requiring BiPAP support 10/5 and 80% FiO2 to maintain O2 saturations in the mid 80s. She's been afebrile. Hemodynamically stable. Chest x-ray reveals cardiomegaly, continued bilateral airspace disease, slightly worsened compared to previous. Sodium 133. Potassium 4.5. Creatinine 0.67. She remains on Lovenox, IV Solu-Medrol, v itamin supplements. The patient is seen today 05/19/2020 in follow-up on the selective care unit. She is currently sitting up at the bedside. Awake and alert in no acute distress. She is still on BiPAP 12/6 and 90% FiO2. White count 4.3. Hemoglobin 12.6. Platelet count dropped to 37,000. Lymphocytes 0.3. Sodium 133. Potassium 4.5. Creatinine 0.71. Remains on IV Solu-Medrol, vitamin s upplements. Lovenox which will be held. 05/20/2020 the patient is being seen for a follow-up. The patient remains on BiPAP at a pressure of 12/6 with an FiO2 of 90%. Remains on IV Solu-Medrol. She is awake and alert. She denies having any significant shortness of breath. Hemodynamically stable. She had prolonged hospitalization due to complications of Covid 19. She is a morbidly obese female patient with a BMI of 49. She was initially on 3 L about 2 by nasal cannula. She is known to have diabetes, gout and hypertension and hyperlipidemia and hypothyroidism. The patient was diagnosed on 04/28/2020 and since then her condition progressively decompensated. She was aggressively treated over the past 2 weeks here in the hospital and her blood work showing a component of thrombocytopenia, for that reason anticoagulation was held. The patient remains on IV Solu-Medrol. She is taking 60 mg IV every 6 hours. The last chest x-ray was done on May 17 the patient had bilateral lower lobe pulmonary infiltrates . Also, there is history drop in the platelet count which is down to 30. Her white second is at 2.5 with a hemoglobin of 11.7. Rest of the blood work essentially within normal limits. The latest chest x-ray was done on 05/09/2020. She is able to tolerate the BiPAP reasonably well. Her pulse ox is a mid 80s this morning. She is able to generate a tidal volume of IVC with a respiratory rate of 26 cm ventilation of 15. She is currently off Lovenox. She is not taking any antiplatelet agents. Levaquin is a 15 units a day along with 5 units with meals 3 times a day. She is also developing increased swelling in lower extremities On today's evaluation, the patient is being seen for follow-up for Covid 19 related pneumonia. The patient is still on BiPAP at a pressure of 12/6 with an FiO2 of 90%. Her pulse ox is around 91%. She is hemodynamically stable. The patient is morbidly obese and her current BMI is 49.7. Note that she progressively got worse and she end up on BiPAP therapy. She is on IV Solu Medrol 60 mg every 6 hours. Her chest x-ray showing some limited improvement from yesterday where the diaphragms were better visualized. She is able to tolerate the BiPAP well. On today's evaluation, the patient is generating a tidal volume of 750 and her current respiratory rate is in the order of 20-27. She had some increased swelling in lower extremity bilaterally and the patient was started on Lasix yesterday and the patient is a negative fluid balance of 750 mL over the past 24 hours. She is still has significant amount of edema and she remains on Lasix at a dose of 40 mg IV every 12 hours. Platelet count currently is down to 30. DIC profile was essentially negative. The inflammatory markers from yesterday were elevated. On 05/22/2020 currently the patient remains on BiPAP at a pressure of 12/6 with an FiO2 of 90%. Her saturations remained marginal. The patient is generating adequate tidal volumes of 570 on her machine. She was started on diuretics yesterday and the patient has been negative fluid balance of 2 L over the past 24 hours. She is awake and calm and comfortable. She wasn't having issues with thrombocytopenia. The platelet count today is 23. Hematology is going to evaluate the patient. The coagulation profile is within normal limits. LDH level is at 1590 with a CRP of less than 5. She is awake and alert. She is following commands and answering questions face is able to take sips of soup and oatmeal. She is resting comfortably in bed. She remains on IV Solu-Medrol. She is also on Lasix 40 mg IV every 12 hours. She is also on Levemir insulin 15 units along with a prescription coverage. No anticoagulation for now because of her underlying thrombocytopenia. On 05/23/2020 I'm seeing the patient for a follow-up. She is awake and alert. She still on a BiPAP at a pressure of 12/6 cm of water. She has also an FiO2 of 90%. Overall, she is awake and alert and she is following commands and answering questions. She remains in good spirits she is calm and comfortable. No new complaints pH remains on IV Solu-Medrol. She also on Lasix 40 mg every 12 hours. Her platelet counts are still low at 19,000. The patient was seen by hematology. The patient was given units of cryoprecipitate yesterday. In terms of her pulmonary status, the patient is stable. The patient is not having any signs of bleeding. She is unable to tolerate some oral intake. In terms of her inflammatory markers, the levels are still up with an LDH level of 161, CRP of less than 5. Her AHI the antibodies came back negative. Rest of the blood work is all within normal limits. I will see her condition essentially unchanged compared to yesterday. In terms of her blood sugar control, the patient is on Levemir insulin 15 units in addition to NovoLog 5 units with meals and a sliding scale coverage. No chest x-ray from today. Her last chest x-ray was from yesterday. 05/24/2020, the patient remains on BiPAP 12/6 with an FiO2 of 90%. She is on IV Solu-Medrol. Platelet counts remain unchanged at 19,000. Her blood work from today shows some mild transaminitis. LDH level is 1541, nor and the CRP level is less than 5, lower. The white cell count is at 4 with a hemoglobin of 12.8. No new complaints pH is able to communicate. She is tolerating diet. No nausea. No vomiting. No diarrhea. No abdominal pain. She is on Levemir insulin 20 units along with NovoLog 5 units with meals and a sliding scale coverage. Her current pulse ox is 88%. Unable to wean her off the BiPAP for now. Chest x-ray showing some limited improvement in aeration of the lungs bilaterally. On examination, she continues to have some crackles. She does have some underlying cardiomegaly on the chest x-ray and the lower lobe pulmonary infiltrates have slightly improved on the most recent chest x-ray was done today. Medical Concierge of the case regarding the thrombocytopenia. Cardiology is also on the case regarding hypertension. She is currently on a combination of lisinopril and hydrochlorothiazide. 05/25/2020 the patient remains on 12/6 BiPAP with an FiO2 of 90%. She remains BiPAP dependent and her current pulse ox is around 90% and she is unable to wean off her FiO2. No significant tachypnea. Her respiratory rate currently is at mid 20s and her tidal volumes above 450. She is having some discomfort in her chest probably related to some heartburn. Oral intake is minimal and the pina ent is basically taking shakes and soft diet. Her platelet count today is down to 18. Hematology is monitoring this and the recommendations is to transfuse this patient with platelets under 15 K and some cryoprecipitate once the fibrinogen under 100.. The patient is not having any bleeding complications for now. On her blood work, she has a sodium of 129 and the renal function is stable. Her LFTs are still abnormal and she has some mild chest and pneumonitis. LDH is 1438 and the CRP level is less than 5. D-dimer from yesterday was 0.7. No recent chest x-ray from today. The chest x-ray from yesterday was showing bilateral pulmonary infiltrates more so in the lung bases more so on the left. As far as treatment, she remains on IV Solu-Medrol 60 mg every 6 hours and she is also on Lasix 40 mg on a daily basis to maintain her fluid balance. 2020, patient remains on BiPAP with an FiO2 of 100% and the pressures of 12/6. Current pulse ox is around 90%. Afebrile. Hemodynamically stable. Continues to have a respiratory rate in the mid 20s. She is very much tolerant to the BiPAP and she has limited reserve as the patient desaturates with coughing, talking, movement, etc. She is still trying to keep on with her nutrition through shakes and the patient is also eating. The inflammatory markers are still pending for today. The LDH from yesterday was 1438 and the CRP was 5.4 and as such the LDH level continues to be elevated. D-dimer is low at 0.5. Platelet count is at 19 and hematology is on the case. No platelet transfusions unless her platelet count is less than 15,000 per hematology. Otherwise, no other significant events. The patient remains on IV Solu-Medrol. She is currently at a dose of 40 mg every 12 hours of the patient's other medical dose was tapered yesterday. She has been the hospital for more than 3 weeks and she's been on steroids since. Most recent chest x-ray from today showing stable bilateral pulmonary infiltrates and the infiltrates are diffuse involving the upper and lower lobes bilaterally. Lung volumes are essentially small. She is also on Lasix once daily and we stopped her hydrochlorothiazide. Her sodium level today is pending, from yesterday was 129, she does have some ongoing transaminitis. Patient was reevaluated today on 05/27/2020, remains on BiPAP. 100% FiO2, with IPAP of 12 and EPAP of 6, and her O2 saturation remains marginal. Patient looks comfortable. Chest x-ray continues to show bilateral patchy infiltrates, not severe enough to explain all her profound hypoxemia. Hence I am recommending a CT angiogram on this patient to rule out the possibility of pulmonary embolism. D-dimer is borderline elevated. Patient cannot go on heparin because of her platelets, however if we need to give her heparin, will place the patient on argatroban CBC is relatively normal otherwise. Her sodium remains low at 127, remains on fluid restrictions, and at times she received diuretics. Her creatinine today is 0.77 liver enzymes remain elevated with AST of 97 ALT of 218 and alkaline phosphatase of 229 Reevaluated today on 05/28/2020, remains on BiPAP on 100%, IPAP of 12 EPAP of 6, continues to have marginal O2 saturations. Patient continues to have low platelets, CT angiogram of the chest which was ordered yesterday was negative. Surprisingly, the patient is doing well clinically, does not complain of shortness of breath although her O2 saturation is marginal. CBC is relatively normal today except for low platelets of 18.5. Sodium remains low at 126. Renal profile showed a BUN of 44 creatinine 0.70. Liver enzymes remain borderline elevated with AST of 210 and alkaline phosphatase of 227. Patient was reevaluated today on 05/29/2020, remains on BiPAP and on the percent FiO2, IPAP of 12 EPAP of 6, O2 saturation remains very marginal at best. Surprisingly, and clinically the patient continues to do well, does not seem to be in any distress. Patient remains on the multiple medications/COVID-19 cocktail. Remains on steroids, today I increased her methylprednisolone 40 mg IV push every 6 hours. Sodium remains low in spite of fluid restriction and demeclocycline. WBC count is 2.7, platelets remained low at 23,000. BUN is 52 creatinine 0.73, Lasix remains on hold. Transaminases are borderline elevated. Patient was reevaluated today on 05/30/2020, no major change in the last 24 hours, remains on BiPAP, remains with marginal O2 saturation, remains on relatively high FiO2 100%, she is also on IPAP of 12 EPAP of 6, no cell changer the last 24 hours or even in the last 1 week. Remains on steroids, she is now on methylprednisolone at 40 mg IV push every 6 hours, patient is not eating well, I am recommending TPN via PICC line. Labs including electrolytes, renal profile, CBC were all reviewed and noted. C-reactive protein on this patient was not done today, but the last one was 0.8. Sodium remains low at 126. Renal profile is normal. Bicarb is 36 Patient was reevaluated today on 05/31/2120, patient is basically about the same. Patient is not getting any better and she is not getting any worse. Remains on high FiO2, remains on BiPAP with IPAP of 12 EPAP of 6, remains on methylprednisolone, she is receiving TPN via PICC line, and overall not much of a change on this patient over the last 2 weeks. Objective - Vital Signs Vital signs: Vital Signs Temp 97.7 F 05/31/20 16:36 Pulse 98 05/31/20 16:36 Resp 20 05/31/20 16:36 BP 109/58 05/31/20 16:36 Pulse Ox 83 L 05/31/20 16:36 Intake & Output 05/30/20 05/31/20 05/31/20 18:59 06:59 18:59 Intake Total 400 218 Output Total 700 Balance 400 -700 218 Weight 132 kg 134 kg 134 kg Intake: Oral 400 218 Output: Urine 700 Other: Voiding Method Indwelling Catheter Indwelling Catheter Indwelling Catheter - Exam Physical Exam: Revealed a 59-year-old female on BiPAP, 100 percent FiO2. Head: Is atraumatic normocephalic. HEENT:[Neck is supple.] [No neck masses.] [No thyromegaly.] [No JVD.] Chest: [Symmetrical chest expansion, crackles at the bases bilaterally. Cardiac Exam: [Normal S1 and S2, no S3 gallop, no murmur.] Abdomen: [Soft, nontender, no megaly, no rebound, no guarding, normal bowel sounds.] Extremities: [No clubbing, no edema, no cyanosis.] Neurological Exam: [No focal neurologic deficit.] Alert and oriented 3. Psychiatric: Normal mood affect and normal mental status examination. - Labs CBC & Chem 7: 05/31/20 10:01 05/31/20 10:01 Labs: Abnormal Lab Results - Last 24 Hours (Table) 05/30/20 05/30/20 05/31/20 Range/Units 17:08 23:59 06:35 WBC (3.8-10.6) k/uL Hgb (11.4-16.0) gm/dL RDW (11.5-15.5) % Plt Count (150-450) k/uL Lymphocytes # (1.0-4.8) k/uL APTT (22.0-30.0) sec Sodium (137-145) mmol/L Chloride (98-107) mmol/L Carbon Dioxide (22-30) mmol/L BUN (7-17) mg/dL Glucose (74-99) mg/dL POC Glucose (mg/dL) 188 H 276 H 260 H (75-99) mg/dL AST (14-36) U/L ALT (4-34) U/L Alkaline Phosphatase (38-126) U/L Total Protein (6.3-8.2) g/dL Albumin (3.5-5.0) g/dL 05/31/20 05/31/20 05/31/20 Range/Units 10:01 10:01 10:01 WBC 2.0 L (3.8-10.6) k/uL Hgb 11.3 L (11.4-16.0) gm/dL RDW 18.5 H (11.5-15.5) % Plt Count 33 L (150-450) k/uL Lymphocytes # 0.2 L (1.0-4.8) k/uL APTT 20.8 L (22.0-30.0) sec Sodium 127 L (137-145) mmol/L Chloride 88 L (98-107) mmol/L Carbon Dioxide 35 H (22-30) mmol/L BUN 38 H (7-17) mg/dL Glucose 209 H (74-99) mg/dL POC Glucose (mg/dL) (75-99) mg/dL AST 83 H (14-36) U/L ALT 185 H (4-34) U/L Alkaline Phosphatase 233 H (38-126) U/L Total Protein 5.1 L (6.3-8.2) g/dL Albumin 2.6 L (3.5-5.0) g/dL 05/31/20 Range/Units 12:10 WBC (3.8-10.6) k/uL Hgb (11.4-16.0) gm/dL RDW (11.5-15.5) % Plt Count (150-450) k/uL Lymphocytes # (1.0-4.8) k/uL APTT (22.0-30.0) sec Sodium (137-145) mmol/L Chloride (98-107) mmol/L Carbon Dioxide (22-30) mmol/L BUN (7-17) mg/dL Glucose (74-99) mg/dL POC Glucose (mg/dL) 242 H (75-99) mg/dL AST (14-36) U/L ALT (4-34) U/L Alkaline Phosphatase (38-126) U/L Total Protein (6.3-8.2) g/dL Albumin (3.5-5.0) g/dL Assessment and Plan Assessment: 1 acute Covid 19 related pneumonia, and ARDS. symptoms started on 04/28/2020, diagnosed to be positive on 04/29/2020 received rem,toci, and convalescent plasma 2 acute hypoxic respiratory failure secondary to above 3 fever secondary to above, resolved. 4 leukopenia, lymphopenia and thrombocytopenia secondary to above 5 elevation of inflammatory markers secondary to Covid 19 infection 6 obesity with a BMI of 47.0 7 diabetes mellitus type 2 8 hypertension 9 hyperlipidemia 10 hypothyroidism 7 thrombocytopenia most likely secondary to sepsis, and COVID-19 infection, being addressed by hematology on the case. 8 hyponatremia possibly SIADH related. Recommendation: Continue BiPAP. And titrate accordingly. Patient received all the different treatments for COVID-19 pneumonia. Continue fluid restrictions continue demeclocycline 150 mg twice a day sodium is 127 today. Increase Solu-Medrol to 40 mg IV push every 6 hours. Prognosis is definitely poor and guarded. Continue TPN. Not ready for any discharge planning. We'll continue to follow. Time with Patient: Less than 30
[2020-05-31] MEDS: [UNRECOGNIZED DRUG - REMARK] IV SCH ×7 (18:21)
[2020-05-31] MEDS: ONDANSETRON 4 MG/2 ML VIAL IVP PRN (19:26)
[2020-05-31] MEDS: guaiFENesin SYRUP 100MG/5ML 200 MG/10 ML CUP PO PRN (19:48)
[2020-05-31 20:21] LABS: Glucose,Whole Blood 340 mg/dL (75-99)
[2020-05-31] MEDS: BACLOFEN 10 MG TAB PO SCH (20:26)
[2020-05-31] MEDS: INSULIN DETEMIR (LEVEMIR) 100 UNIT/ML SYR SQ SCH (20:27)
[2020-05-31] MEDS ORDERED: LORATADINE-PSEUDOEPH 5-120 MG 1 EACH TAB.ER.12H PO ONE (22:48)
[2020-06-01 06:29] LABS: Glucose,Whole Blood 419 mg/dL (75-99)
[2020-06-01] MEDS: methylPREDNISolone SOD SUCCI 40 MG/ML 1 ML VIAL IV SCH ×4 (06:31→23:59)
[2020-06-01] MEDS: metFORMIN 500 MG TAB PO SCH ×3 (06:32→17:15)
[2020-06-01] MEDS: PANTOPRAZOLE 40 MG TABLET PO SCH ×2 (06:32→17:15)
[2020-06-01] MEDS: GLIMEPIRIDE 4 MG TAB PO SCH (06:32)
[2020-06-01] MEDS: LEVOTHYROXINE 75 MCG TAB PO SCH (06:32)
[2020-06-01] MEDS: INSULIN ASPART (NovoLOG) 100 UNIT/ML VIAL SQ SCH ×7 (06:32→20:32)
[2020-06-01 07:14] LABS: Glucose,Whole Blood 388 mg/dL (75-99)
[2020-06-01] MEDS: GABAPENTIN 300 MG CAP PO SCH ×4 (08:49→20:32)
[2020-06-01] MEDS: ATORVASTATIN 40 MG TAB PO SCH (08:49)
[2020-06-01] MEDS: CHOLECALCIFEROL 25 MCG (1000 IU) TABLET PO SCH (08:50)
[2020-06-01] MEDS: allopurinoL 100 MG TAB PO SCH (08:50)
[2020-06-01] MEDS: FERROUS SULFATE 325 MG TAB PO SCH (08:50)
[2020-06-01] MEDS: CYANOCOBALAMIN 500 MCG TAB PO SCH (08:50)
[2020-06-01] MEDS: lisinopriL 10 MG TAB PO SCH (08:50)
[2020-06-01] MEDS: ESCITALOPRAM 20 MG TAB PO SCH (08:50)
[2020-06-01] MEDS: ASCORBIC ACID 500 MG TAB PO SCH (08:50)
[2020-06-01] MEDS: SENNOSIDES-DOCUSATE SODIUM 1 EACH TAB PO SCH (08:50)
[2020-06-01] MEDS: MAG HYDROX/AL HYDROX/SIMETH 30 ML CUP PO SCH ×4 (08:50→20:32)
[2020-06-01] MEDS: DEMECLOCYCLINE 150 MG TAB PO SCH ×2 (08:50→20:32)
[2020-06-01] MEDS: ZINC SULFATE 220 MG CAP PO SCH (08:50)
[2020-06-01] MEDS: NAPHAZOLINE-PHENIRA 0.025-0.3% DROPS 15 ML BTL BOTH EYES SCH ×4 (08:51→23:35)
[2020-06-01] MEDS: LORazepam 2 MG/ML INJ IV PRN ×2 (09:01→20:40)
[2020-06-01 09:25] LABS: African American GFR (CKD) >90 (>60 ml/min/1.73 sqM); Anion Gap 5 mmol/L; Blood Urea Nitrogen 36 mg/dL (7-17); Calcium 8.4 mg/dL (8.4-10.2); Carbon Dioxide 33 mmol/L (22-30); Chloride 88 mmol/L (98-107); Glucose 347 mg/dL (74-99); Non-African American GFR(CKD) >90 (>60 ml/min/1.73 sqM); Phosphorus 3.1 mg/dL (2.5-4.5); Potassium 4.3 mmol/L (3.5-5.1); Sodium 126 mmol/L (137-145)
[2020-06-01] MEDS: [UNRECOGNIZED DRUG - REMARK] IV SCH ×7 (10:14)
--- NOTE | 2020-06-01 11:32 | P.NPCON ---
History of Present Illness - Reason for Consult Consult date: 06/01/20 hyponatremia - Chief Complaint COVID-19 pneumonia - History of Present Illness 59-year-old female who was admitted on 05/05/2020 with COVID-19 pneumonia. She is being seen because of hyponatremia. Sodium went down on 05/20/2020 from 133-132 and 03/11/2027 on 05/24/2020. Currently he is at 126. She is on demeclocycline. Patient is currently on BiPAP and cc any tired and stressed out. No nausea vomiting. She is on TPN, started on 05/30/2020. 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 Her vital signs blood pressure in the 95 systolic to 104 systolic. 24-hour urine output is 700 mL yesterday and 875 this morning Past Medical History Past Medical History: Blood Disorder, Diabetes Mellitus, GERD/Reflux, GI Bleed, Hyperlipidemia, Hypertension, Thyroid Disorder Additional Past Medical History / Comment(s): HX PANTOCYPOPENIA-CT SCAN REVEALED ENLARGED SPLEEN History of Any Multi-Drug Resistant Organisms: None Reported Past Surgical History: Bariatric Surgery, Cholecystectomy, Heart Catheterization, Tonsillectomy Additional Past Surgical History / Comment(s): COLONOSCOPY. SPINAL FUSION 2018. GASTRIC SLEEVE 2011 Past Anesthesia/Blood Transfusion Reactions: No Reported Reaction Past Psychological History: Depression Smoking Status: Never smoker Past Alcohol Use History: None Reported Past Drug Use History: None Reported - Past Family History Mother Family Medical History: Cancer Father Family Medical History: Cancer Medications and Allergies Home Medications Medication Instructions Recorded Confirmed Type Levothyroxine Sodium [Synthroid] 75 mcg PO DAILY 10/17/15 05/04/20 History Omeprazole [PriLOSEC] 20 mg PO AC-BRKFST 10/17/15 05/04/20 History Allopurinol [Zyloprim] 100 mg PO DAILY 03/05/20 05/04/20 History Atorvastatin [Lipitor] 40 mg PO DAILY 03/05/20 05/04/20 History Baclofen [Lioresal] 20 mg PO HS 03/05/20 05/04/20 History Ergocalciferol [Vitamin D2 (1250 1,250 mcg PO DELACRUZ 03/05/20 05/04/20 History Mcg = [id number] Iu)] Escitalopram [Lexapro] 20 mg PO DAILY 03/05/20 05/04/20 History Ferrous Sulfate [Feosol] 325 mg PO DAILY 03/05/20 05/04/20 History Gabapentin [Neurontin] 600 mg PO QID 03/05/20 05/04/20 History Glimepiride [Amaryl] 4 mg PO AC-BRKFST 03/05/20 05/04/20 History Lisinopril [Prinivil] 10 mg PO DAILY 03/05/20 05/04/20 History Melatonin 3 mg PO HS 03/05/20 05/04/20 History Pioglitazone [Actos] 30 mg PO DAILY 03/05/20 05/04/20 History metFORMIN HCL [Glucophage] 500 mg PO TID 03/05/20 05/04/20 History Ibuprofen [Motrin] 800 mg PO Q8H PRN 05/04/20 05/04/20 History Allergies Allergy/AdvReac Type Severity Reaction Status Date / Time codeine Allergy Rash/Hives Verified 05/04/20 13:52 Physical Exam Vitals: Vital Signs Temp Pulse Resp BP Pulse Ox 06/01/20 08:46 97.9 F 105 H 22 104/61 89 L 06/01/20 08:00 105 H 22 06/01/20 03:15 97.8 F 103 H 22 95/50 89 L 06/01/20 02:00 24 05/31/20 23:00 97.6 F 102 H 24 92/51 86 L 05/31/20 19:40 24 88 L 05/31/20 19:35 97.8 F 103 H 32 H 105/59 86 L 05/31/20 16:36 97.7 F 98 20 109/58 83 L 05/31/20 11:44 98 F 84 20 109/56 87 L Intake and Output 05/31/20 06/01/20 06/01/20 22:59 06:59 14:59 Intake Total 528 360 Output Total 525 350 Balance 3 -350 360 Intake: Intake, IV Titration 528 Amount Fat Emulsion 20% 250 ml 168 In Empty Bag 1 bag @ 21 mls/hr IV MoWeFr [facility] Rx#: [id number] Mvi, Adult No.4 with Vit 360 K 10 ml Trace (Conc-1Ml/ Dose) 1 ml Calcium Gluconate 1 gm Sodium Chloride 4Meq/ml Vial 30 meq Potassium Chloride 20 meq Sodium Phosphate 15 mmol In Amino Acid 5%- D15w 1,000 ml @ 30 mls/hr IV .Q24H [facility] Rx#: [id number] Oral 0 360 Output: Urine 525 350 Other: Voiding Method Indwelling Catheter Indwelling Catheter Indwelling Catheter Weight 134.5 kg She is awake alert oriented but anxious. She is on BiPAP HEENT exam no JVP neck is supple no facial asymmetry Lungs are significant for an occasional coarse crackle at bases Heart sounds are unremarkable for any murmur or gallop Abdomen soft nontender Extremity exam was trace edema Neurologically awake alert oriented Results - Lab Results Most recent lab results Calcium 8.4 mg/dL (8.4-10.2) 06/01/20 08:49 Phosphorus 3.1 mg/dL (2.5-4.5) 06/01/20 08:49 Magnesium 2.2 mg/dL (1.6-2.3) 05/31/20 10:01 05/31/20 10:01 06/01/20 08:49 Assessment and Plan Assessment: Impression 1. Hyponatremia secondary to combination of high blood sugar with dilutional sodium, additionally there may be an element of low blood pressure, as well as low sodium intake. She is on Synthroid but will rule out hypothyroidism. 2 covid 19pneumonia on BiPAP 3. History of diabetes mellitus. 4. Mild alkalosis improving, bicarb is 33. This may be a reflection of the steroids she is on. Recommendation 1. Control blood sugar better which would significantly improve the sodium because the dilutional effect of hyperglycemia shifting intracellular water out he did 2. Check urine osmolality urine sodium and creatinine 3. Check TSH level. 4 After labs are drawn, we will try one dose of Lasix 20 mg and see how the sodium changes and this will give us diagnostic information or activities but is consultation and end of dictation
[2020-06-01] MEDS ORDERED: FUROSEMIDE 10 MG/ML 2 ML VIAL IV STA (11:35)
[2020-06-01 11:52] LABS: Glucose,Whole Blood 328 mg/dL (75-99)
[2020-06-01 13:24] LABS: T4, Free (Free Thyroxine) 0.95 ng/dL (0.78-2.19)
[2020-06-01 13:24] LABS: Creatinine,Urine Random 72.6 mg/dL
--- NOTE | 2020-06-01 17:07 | P.PN ---
Subjective Progress Note Date: 06/01/20 Principal diagnosis: Acute hypoxic respiratory failure secondary to acute covid 19 pneumonia 79-year-old female patient, morbidly obese with a BMI of 47, was hospitalized for COVID 19 related pneumonia. The patient currently is hypoxic on 3 L of oxygen by nasal cannula. She has comorbidities including obesity with a BMI of 47, hypertension, diabetes mellitus and gout. She also has hyperlipidemia and hypothyroidism. The patient started getting symptoms approximately a week ago, on 04/28/2020 and the patient was diagnosed having Covid 19 infection for a primary care physician's office on 04/29.. She continued to have episodes of fever and subsequently she became progressively more short of breath necessitating emergency department visitation today and ultimately she was hospitalized. Her chest x-ray showing bilateral pulmonary infiltrates peripheral distribution more so on the right compared to the left. The patient was started on steroids.. She is slightly nauseated. She also has loss of taste and smell LDH level is currently at 802 with a CRP of 55 and she had a lactic acid level of 2.1 at the time of admission. There d-dimer is still pending for now. Her white cell count is at 1.4 and the patient is lymphopenic with a lymphocyte count of 0.6 and there is also a drop in her platelet count down to 80 and these are all manifestations of COVID 19 infection. On today's evaluation of 04/27/2020, the patient's oxygenation has gotten worse. I saw her in the emergency department yesterday and she was on 4 L. She progressively required higher oxygen flow and she went up to a high flow oxygen through the nasal cannula airvo which she feels a currently she is on a BiPAP at a pressure of 10/5 with an FiO2 of 100%. She is able to generate a tidal volume around 450-500. Respiratory rate is in the mid 30s low 40s. She feels well. She is in mild degree of respiratory distress. She is still able to converse and talk to her BiPAP mask. Her current pulse ox is 94%. 60 showing diffuse breath and pulmonary infiltrates consistent with Covid 19 related pneumonia. Her white cell count is still down at 1.2. Platelet count is at 70 now which is low. D-dimer is at 0.65, her LDH level is at 835 with a CRP of 56. She is on Decadron. I'm going to switch her to Solu-Medrol. She is currently taking REM should be considered for convalescent plasma and addition to Tocilizumab The patient is seen today 05/06/2020 in follow-up on the regular medical floor. She is currently sitting up in bed. Awake and alert in no acute distress. Cu rrently on BiPAP 10/5 and 100% FiO2. Current saturation 88%. Chest x-ray reveals mild, medically. Residual bilateral airspace disease. Improving compared to previous. This is day #3 of Remdesivir. She received convalescent plasma 1, tocilizumab. D-dimer 0.84. C-reactive protein 2.8. LDH 459. She remains on Decadron, IV Solu-Medrol, vitamin supplements. Patient was reevaluated today on 05/09/2020, remains on BiPAP, she is on 100%, O2 sats is 94%. Surprisingly, the patient seems to be doing well in spite of her significant O2 requirement and BiPAP. Patient received REM, she also received convalescent plasma and ACTEMRA. And so far does not seem to be making that significant turnaround and significant clinical improvement. CBC and basic metabolic profile are normal except for WBC count is 2.0 today. Patient was reevaluated today on 05/10/2020, still requiring significant amount of FiO2, she remains on BiPAP at 90% FiO2, she is on IPAP of 10 and EPAP of 5, and O2 saturation remains marginal. Clinically however the patient feels better breathing easier, and have d-dimer is not that significantly elevated but it is nonetheless abnormal. Hence I recommended a CT angiogram of the chest to be done today. Renal profile is normal. CBC continues to show leukopenia with WBC count of 2.0. Electrolytes are normal. Patient was reevaluated today on 05/11/2020, patient is basically about the same. Remains on BiPAP. Her FiO2 is still at 90%, and her O2 saturation is in the low 90s. Patient is on IPAP of 10 and EPAP of 5, seems to be very comfortable. CT angiogram of the chest yesterday showed bilateral interstitial infiltrates, no evidence of thromboembolic disease/pulmonary embolism. WBC count is 2.2 hemoglobin is 11.6. A left lites are normal renal profile is normal clinically the patient is fairly comfortable, however she is still requiring significant high FiO2. Reevaluated today on 05/12/2020, patient is feeling much better today, breathing a lot easier, she is now on 80% FiO2 remains on BiPAP with IPAP of 10 and EPAP of 5. But her FiO2 was cut down to 80%, and I will cut it down further to 70% and her O2 saturation seems to be significantly improved. Patient feels that she felt much better after the Lasix was given yesterday. I will recommend another dose of Lasix to be given today. Her CT angiogram of the chest yesterday questioned mild interstitial edema. However I felt it was all related to her underlying Covid 19 pneumonitis. Nonetheless Lasix was given, and clinically the patient felt better. Labs today were all reviewed she had WBC count of 2.3 hemoglobin 12.4 lites are normal renal profile remains normal. Progress note dated 05/13/2020. Currently, the patient remains on BiPAP, at 70%. She's feeling better today. She feels less short of breath. Her BiPAP settings are IPAP 10, and EPAP 5. I did tell the patient to move around when she is lying in bed. She should lie down on her right side, left side, supine, and if possible, try to prone herself. Current laboratory data includes a white count of 2, hemoglobin 11.7, hematocrit 35.2, platelet count 94,000. Sodium is 136, potassium 3.4, chlorides 101, CO2 33, anion gap 2, BUN [address], [address] angiogram on May 10 showed no evidence of pulmonary embolism, but did show moderately severe pulmonary interstitial edema/infiltrates. Progress note dated 05/14/2020. The patient remains on BiPAP at 70%. She feels much improved. Her IPAP of 10 and EPAP is fine. She's feeling much less short of breath. I did tell her to move around in bed, right side down, left side down, supine, and even on her stomach if she can. No new labs today to look at. No recent chest x-rays to evaluate either. Medications are appropriate at this time. CT angiogram from May 10 is reviewed. Progress note dated 05/15/2020. The patient remains on BiPAP, settings of IPAP 10, and EPAP of 5. She is on 70%. Her saturations are right around 90% or so. Despite that, the patient states that she is feeling much better. She has been moving around in bed. His been laying on her right side, left side, supine, even on her stomach at times. No new labs today other than a sodium of 137, potassium 4, chloride 98, CO2 34, anion gap 5, BUN 19, creatinine 0.67. The patient is seen today 05/16/2020 in follow-up on the selective care unit. She is currently resting fairly comfortably in bed. She is continued on BiPAP currently 10/5 and 70% FiO2. She is maintaining O2 saturations about 85-86%. Today she is feeling mostly tired and fatigued. Breathing is about the same. No better but no worse currently. She remains on IV Solu-Medrol, Lovenox, vitamin supplements. Blood glucose 146. The patient is seen today 05/17/2020 in follow-up on the selective care unit. She remains awake and alert in no acute distress. She is still requiring BiPAP support 10/5 and 80% FiO2 to maintain O2 saturations in the mid 80s. She's been afebrile. Hemodynamically stable. Chest x-ray reveals cardiomegaly, continued bilateral airspace disease, slightly worsened compared to previous. Sodium 133. Potassium 4.5. Creatinine 0.67. She remains on Lovenox, IV Solu-Medrol, v itamin supplements. The patient is seen today 05/19/2020 in follow-up on the selective care unit. She is currently sitting up at the bedside. Awake and alert in no acute distress. She is still on BiPAP 12/6 and 90% FiO2. White count 4.3. Hemoglobin 12.6. Platelet count dropped to 37,000. Lymphocytes 0.3. Sodium 133. Potassium 4.5. Creatinine 0.71. Remains on IV Solu-Medrol, vitamin s upplements. Lovenox which will be held. 05/20/2020 the patient is being seen for a follow-up. The patient remains on BiPAP at a pressure of 12/6 with an FiO2 of 90%. Remains on IV Solu-Medrol. She is awake and alert. She denies having any significant shortness of breath. Hemodynamically stable. She had prolonged hospitalization due to complications of Covid 19. She is a morbidly obese female patient with a BMI of 49. She was initially on 3 L about 2 by nasal cannula. She is known to have diabetes, gout and hypertension and hyperlipidemia and hypothyroidism. The patient was diagnosed on 04/28/2020 and since then her condition progressively decompensated. She was aggressively treated over the past 2 weeks here in the hospital and her blood work showing a component of thrombocytopenia, for that reason anticoagulation was held. The patient remains on IV Solu-Medrol. She is taking 60 mg IV every 6 hours. The last chest x-ray was done on May 17 the patient had bilateral lower lobe pulmonary infiltrates . Also, there is history drop in the platelet count which is down to 30. Her white second is at 2.5 with a hemoglobin of 11.7. Rest of the blood work essentially within normal limits. The latest chest x-ray was done on 05/09/2020. She is able to tolerate the BiPAP reasonably well. Her pulse ox is a mid 80s this morning. She is able to generate a tidal volume of IVC with a respiratory rate of 26 cm ventilation of 15. She is currently off Lovenox. She is not taking any antiplatelet agents. Levaquin is a 15 units a day along with 5 units with meals 3 times a day. She is also developing increased swelling in lower extremities On today's evaluation, the patient is being seen for follow-up for Covid 19 related pneumonia. The patient is still on BiPAP at a pressure of 12/6 with an FiO2 of 90%. Her pulse ox is around 91%. She is hemodynamically stable. The patient is morbidly obese and her current BMI is 49.7. Note that she progressively got worse and she end up on BiPAP therapy. She is on IV Solu Medrol 60 mg every 6 hours. Her chest x-ray showing some limited improvement from yesterday where the diaphragms were better visualized. She is able to tolerate the BiPAP well. On today's evaluation, the patient is generating a tidal volume of 750 and her current respiratory rate is in the order of 20-27. She had some increased swelling in lower extremity bilaterally and the patient was started on Lasix yesterday and the patient is a negative fluid balance of 750 mL over the past 24 hours. She is still has significant amount of edema and she remains on Lasix at a dose of 40 mg IV every 12 hours. Platelet count currently is down to 30. DIC profile was essentially negative. The inflammatory markers from yesterday were elevated. On 05/22/2020 currently the patient remains on BiPAP at a pressure of 12/6 with an FiO2 of 90%. Her saturations remained marginal. The patient is generating adequate tidal volumes of 570 on her machine. She was started on diuretics yesterday and the patient has been negative fluid balance of 2 L over the past 24 hours. She is awake and calm and comfortable. She wasn't having issues with thrombocytopenia. The platelet count today is 23. Hematology is going to evaluate the patient. The coagulation profile is within normal limits. LDH level is at 1590 with a CRP of less than 5. She is awake and alert. She is following commands and answering questions face is able to take sips of soup and oatmeal. She is resting comfortably in bed. She remains on IV Solu-Medrol. She is also on Lasix 40 mg IV every 12 hours. She is also on Levemir insulin 15 units along with a prescription coverage. No anticoagulation for now because of her underlying thrombocytopenia. On 05/23/2020 I'm seeing the patient for a follow-up. She is awake and alert. She still on a BiPAP at a pressure of 12/6 cm of water. She has also an FiO2 of 90%. Overall, she is awake and alert and she is following commands and answering questions. She remains in good spirits she is calm and comfortable. No new complaints pH remains on IV Solu-Medrol. She also on Lasix 40 mg every 12 hours. Her platelet counts are still low at 19,000. The patient was seen by hematology. The patient was given units of cryoprecipitate yesterday. In terms of her pulmonary status, the patient is stable. The patient is not having any signs of bleeding. She is unable to tolerate some oral intake. In terms of her inflammatory markers, the levels are still up with an LDH level of 161, CRP of less than 5. Her AHI the antibodies came back negative. Rest of the blood work is all within normal limits. I will see her condition essentially unchanged compared to yesterday. In terms of her blood sugar control, the patient is on Levemir insulin 15 units in addition to NovoLog 5 units with meals and a sliding scale coverage. No chest x-ray from today. Her last chest x-ray was from yesterday. 05/24/2020, the patient remains on BiPAP 12/6 with an FiO2 of 90%. She is on IV Solu-Medrol. Platelet counts remain unchanged at 19,000. Her blood work from today shows some mild transaminitis. LDH level is 1541, nor and the CRP level is less than 5, lower. The white cell count is at 4 with a hemoglobin of 12.8. No new complaints pH is able to communicate. She is tolerating diet. No nausea. No vomiting. No diarrhea. No abdominal pain. She is on Levemir insulin 20 units along with NovoLog 5 units with meals and a sliding scale coverage. Her current pulse ox is 88%. Unable to wean her off the BiPAP for now. Chest x-ray showing some limited improvement in aeration of the lungs bilaterally. On examination, she continues to have some crackles. She does have some underlying cardiomegaly on the chest x-ray and the lower lobe pulmonary infiltrates have slightly improved on the most recent chest x-ray was done today. Water Leak Repairer of the case regarding the thrombocytopenia. Cardiology is also on the case regarding hypertension. She is currently on a combination of lisinopril and hydrochlorothiazide. 05/25/2020 the patient remains on 12/6 BiPAP with an FiO2 of 90%. She remains BiPAP dependent and her current pulse ox is around 90% and she is unable to wean off her FiO2. No significant tachypnea. Her respiratory rate currently is at mid 20s and her tidal volumes above 450. She is having some discomfort in her chest probably related to some heartburn. Oral intake is minimal and the pina ent is basically taking shakes and soft diet. Her platelet count today is down to 18. Hematology is monitoring this and the recommendations is to transfuse this patient with platelets under 15 K and some cryoprecipitate once the fibrinogen under 100.. The patient is not having any bleeding complications for now. On her blood work, she has a sodium of 129 and the renal function is stable. Her LFTs are still abnormal and she has some mild chest and pneumonitis. LDH is 1438 and the CRP level is less than 5. D-dimer from yesterday was 0.7. No recent chest x-ray from today. The chest x-ray from yesterday was showing bilateral pulmonary infiltrates more so in the lung bases more so on the left. As far as treatment, she remains on IV Solu-Medrol 60 mg every 6 hours and she is also on Lasix 40 mg on a daily basis to maintain her fluid balance. 2020, patient remains on BiPAP with an FiO2 of 100% and the pressures of 12/6. Current pulse ox is around 90%. Afebrile. Hemodynamically stable. Continues to have a respiratory rate in the mid 20s. She is very much tolerant to the BiPAP and she has limited reserve as the patient desaturates with coughing, talking, movement, etc. She is still trying to keep on with her nutrition through shakes and the patient is also eating. The inflammatory markers are still pending for today. The LDH from yesterday was 1438 and the CRP was 5.4 and as such the LDH level continues to be elevated. D-dimer is low at 0.5. Platelet count is at 19 and hematology is on the case. No platelet transfusions unless her platelet count is less than 15,000 per hematology. Otherwise, no other significant events. The patient remains on IV Solu-Medrol. She is currently at a dose of 40 mg every 12 hours of the patient's other medical dose was tapered yesterday. She has been the hospital for more than 3 weeks and she's been on steroids since. Most recent chest x-ray from today showing stable bilateral pulmonary infiltrates and the infiltrates are diffuse involving the upper and lower lobes bilaterally. Lung volumes are essentially small. She is also on Lasix once daily and we stopped her hydrochlorothiazide. Her sodium level today is pending, from yesterday was 129, she does have some ongoing transaminitis. Patient was reevaluated today on 05/27/2020, remains on BiPAP. 100% FiO2, with IPAP of 12 and EPAP of 6, and her O2 saturation remains marginal. Patient looks comfortable. Chest x-ray continues to show bilateral patchy infiltrates, not severe enough to explain all her profound hypoxemia. Hence I am recommending a CT angiogram on this patient to rule out the possibility of pulmonary embolism. D-dimer is borderline elevated. Patient cannot go on heparin because of her platelets, however if we need to give her heparin, will place the patient on argatroban CBC is relatively normal otherwise. Her sodium remains low at 127, remains on fluid restrictions, and at times she received diuretics. Her creatinine today is 0.77 liver enzymes remain elevated with AST of 97 ALT of 218 and alkaline phosphatase of 229 Reevaluated today on 05/28/2020, remains on BiPAP on 100%, IPAP of 12 EPAP of 6, continues to have marginal O2 saturations. Patient continues to have low platelets, CT angiogram of the chest which was ordered yesterday was negative. Surprisingly, the patient is doing well clinically, does not complain of shortness of breath although her O2 saturation is marginal. CBC is relatively normal today except for low platelets of 18.5. Sodium remains low at 126. Renal profile showed a BUN of 44 creatinine 0.70. Liver enzymes remain borderline elevated with AST of 210 and alkaline phosphatase of 227. Patient was reevaluated today on 05/29/2020, remains on BiPAP and on the percent FiO2, IPAP of 12 EPAP of 6, O2 saturation remains very marginal at best. Surprisingly, and clinically the patient continues to do well, does not seem to be in any distress. Patient remains on the multiple medications/COVID-19 cocktail. Remains on steroids, today I increased her methylprednisolone 40 mg IV push every 6 hours. Sodium remains low in spite of fluid restriction and demeclocycline. WBC count is 2.7, platelets remained low at 23,000. BUN is 52 creatinine 0.73, Lasix remains on hold. Transaminases are borderline elevated. Patient was reevaluated today on 05/30/2020, no major change in the last 24 hours, remains on BiPAP, remains with marginal O2 saturation, remains on relatively high FiO2 100%, she is also on IPAP of 12 EPAP of 6, no leaf coverer the last 24 hours or even in the last 1 week. Remains on steroids, she is now on methylprednisolone at 40 mg IV push every 6 hours, patient is not eating well, I am recommending TPN via PICC line. Labs including electrolytes, renal profile, CBC were all reviewed and noted. C-reactive protein on this patient was not done today, but the last one was 0.8. Sodium remains low at 126. Renal profile is normal. Bicarb is 36 Patient was reevaluated today on 05/31/2120, patient is basically about the same. Patient is not getting any better and she is not getting any worse. Remains on high FiO2, remains on BiPAP with IPAP of 12 EPAP of 6, remains on methylprednisolone, she is receiving TPN via PICC line, and overall not much of a change on this patient over the last 2 weeks. Patient was reevaluated today on 06/01/2020, remains on high flow oxygen, she is on BiPAP, not much of a change, IPAP is 12 EPAP of 6, FiO2 remains on the perce nt, O2 saturation remains marginal in the high 80s and no 90s. Overall the patient is not making any progression not for the better and not for the worse. She is about the same over the last 2 weeks. Continues to have elevated blood sugar of 328. Her sodium remains at 126. BUN is 36 creatinine is 0.46. He evaluated by nephrology for her hypernatremia which is felt to be related to high blood sugar and dilutional as well as related to low blood pressure. And low sodium intake. Possible hypothyroidism, and that being evaluated Objective - Vital Signs Vital signs: Vital Signs Temp 97.6 F 06/01/20 16:26 Pulse 98 06/01/20 16:26 Resp 21 06/01/20 16:26 BP 103/56 06/01/20 16:26 Pulse Ox 88 L 06/01/20 16:26 Intake & Output 05/31/20 06/01/20 06/01/20 18:59 06:59 18:59 Intake Total 746 360 Output Total 525 350 Balance 221 -350 360 Weight 134 kg 134.5 kg Intake: Intake, IV Titration 528 Amount Fat Emulsion 20% 250 ml 168 In Empty Bag 1 bag @ 21 mls/hr IV MoWeFr YESSI Rx#: [id number] Mvi, Adult No.4 with Vit 360 K 10 ml Trace (Conc-1Ml/ Dose) 1 ml Calcium Gluconate 1 gm Sodium Chloride 4Meq/ml Vial 30 meq Potassium Chloride 20 meq Sodium Phosphate 15 mmol In Amino Acid 5%- D15w 1,000 ml @ 30 mls/hr IV .Q24H YESSI Rx#: [id number] Oral 218 360 Output: Urine 525 350 Other: Voiding Method Indwelling Catheter Indwelling Catheter Indwelling Catheter - Exam Physical Exam: Revealed a 59-year-old female on BiPAP, 100 percent FiO2. Head: Is atraumatic normocephalic. HEENT:[Neck is supple.] [No neck masses.] [No thyromegaly.] [No JVD.] Chest: [Symmetrical chest expansion, crackles at the bases bilaterally. Cardiac Exam: [Normal S1 and S2, no S3 gallop, no murmur.] Abdomen: [Soft, nontender, no megaly, no rebound, no guarding, normal bowel sounds.] Extremities: [No clubbing, no edema, no cyanosis.] Neurological Exam: [No focal neurologic deficit.] Alert and oriented 3. Psychiatric: Normal mood affect and normal mental status examination. - Labs CBC & Chem 7: 05/31/20 10:01 06/01/20 08:49 Labs: Abnormal Lab Results - Last 24 Hours (Table) 05/31/20 05/31/20 06/01/20 Range/Units 17:07 20:18 06:25 Sodium (137-145) mmol/L Chloride (98-107) mmol/L Carbon Dioxide (22-30) mmol/L BUN (7-17) mg/dL Creatinine (0.52-1.04) mg/dL Glucose (74-99) mg/dL POC Glucose (mg/dL) 296 H 340 H 419 H (75-99) mg/dL TSH (0.465-4.680) mIU/L 06/01/20 06/01/20 06/01/20 Range/Units 07:11 08:49 08:49 Sodium 126 L (137-145) mmol/L Chloride 88 L (98-107) mmol/L Carbon Dioxide 33 H (22-30) mmol/L BUN 36 H (7-17) mg/dL Creatinine 0.46 L (0.52-1.04) mg/dL Glucose 347 H (74-99) mg/dL POC Glucose (mg/dL) 388 H (75-99) mg/dL TSH 0.096 L (0.465-4.680) mIU/L 06/01/20 Range/Units 11:49 Sodium (137-145) mmol/L Chloride (98-107) mmol/L Carbon Dioxide (22-30) mmol/L BUN (7-17) mg/dL Creatinine (0.52-1.04) mg/dL Glucose (74-99) mg/dL POC Glucose (mg/dL) 328 H (75-99) mg/dL TSH (0.465-4.680) mIU/L Assessment and Plan Assessment: 1 acute Covid 19 related pneumonia, and ARDS. symptoms started on 04/28/2020, diagnosed to be positive on 04/29/2020 received rem,toci, and convalescent plasma 2 acute hypoxic respiratory failure secondary to above 3 fever secondary to above, resolved. 4 leukopenia, lymphopenia and thrombocytopenia secondary to above 5 elevation of inflammatory markers secondary to Covid 19 infection 6 obesity with a BMI of 47.0 7 diabetes mellitus type 2 8 hypertension 9 hyperlipidemia 10 hypothyroidism 7 thrombocytopenia most likely secondary to sepsis, and COVID-19 infection, being addressed by hematology on the case. 8 hyponatremia , multifactorial. Recommendation: Continue BiPAP. And titrate accordingly. Patient received all the different treatments for COVID-19 pneumonia. Continue Solu-Medrol 40 mg IV push every 6 hours. Prognosis is definitely poor and guarded. Continue TPN. Not ready for any discharge planning. We'll continue to follow. Time with Patient: Less than 30
[2020-06-01 17:17] LABS: Glucose,Whole Blood 351 mg/dL (75-99)
[2020-06-01] MEDS: ACETAMINOPHEN TAB 500 MG TAB PO PRN (17:25)
[2020-06-01 20:03] LABS: Glucose,Whole Blood 318 mg/dL (75-99)
[2020-06-01] MEDS: guaiFENesin SYRUP 100MG/5ML 200 MG/10 ML CUP PO PRN (20:32)
[2020-06-01] MEDS: BACLOFEN 10 MG TAB PO SCH (20:32)
[2020-06-01] MEDS: INSULIN DETEMIR (LEVEMIR) 100 UNIT/ML SYR SQ SCH (20:32)
--- NOTE | 2020-06-01 23:02 | P.PN ---
Subjective Progress Note Date: 06/01/20 Principal diagnosis: acute hypoxic respiratory failure secondary to Covid pneumonia. Covering for Dr. Aviles over the weekend Ms. Balderas is a 59-year-old female with a past medical history of hypertension, diabetes, obesity admitted with acute hypoxic respiratory failure secondary to Covid pneumonia. Patient received remdesivir dexamethasone antibiotics and multivitamins. She has been in the hospital for almost 4 weeks. On 06/01/2020 -patient is seen and examined at bedside. She states that her difficulty in breathing is the same. She continues to be on BiPAP 01/13, FiO2 100% and saturating in high 80s to low 90s. Patient denies having any chest pain or palpitations. No abdominal pain nausea vomiting or diarrhea. No dysuria or hematuria. On reviewing the vitals T-max 98, heart rate 90s 200s, blood pressure 90-100/50-60. On reviewing her labs sodium 126, potassium 4.3, chloride 88, bicarb 33, BUN 36, creatinine 0.46. Nephrology has been consulted in view of her hyponatremia. Active Medications Acetaminophen (Acetaminophen Tab 500 Mg Tab) 1,000 mg PO Q6HR PRN Al Hydroxide/Mg Hydroxide (Mag Hydrox/Al Hydrox/Simeth 30 Ml Cup) 20 ml PO QID YESSI Albuterol Sulfate (Albuterol Hfa Inhaler) 2 puff INHALATION RT-Q6H PRN Allopurinol (Allopurinol 100 Mg Tab) 100 mg PO DAILY YESSI Ascorbic Acid (Ascorbic Acid 500 Mg Tab) 1,000 mg PO DAILY YESSI Atorvastatin Calcium (Atorvastatin 40 Mg Tab) 40 mg PO DAILY YESSI Baclofen (Baclofen 10 Mg Tab) 20 mg PO HS YESSI Cholecalciferol (Cholecalciferol 25 Mcg (1000 Iu) Tablet) 25 mcg PO DAILY YESSI Cyanocobalamin (Cyanocobalamin 500 Mcg Tab) 500 mcg PO DAILY YESSI Demeclocycline HCl (Demeclocycline 150 Mg Tab) 150 mg PO BID YESSI Escitalopram Oxalate (Escitalopram 20 Mg Tab) 20 mg PO DAILY YESSI Ferrous Sulfate (Ferrous Sulfate 325 Mg Tab) 325 mg PO DAILY YESSI Gabapentin (Gabapentin 300 Mg Cap) 600 mg PO QID YESSI Glimepiride (Glimepiride 4 Mg Tab) 4 mg PO AC-BRKFST YESSI Guaifenesin (Guaifenesin Syrup 100mg/5ml 200 Mg/10 Ml Cup) 200 mg PO Q6H PRN Fat Emulsion Intravenous 250 (ml/ IV Solution) 250 mls @ 21 mls/hr IV MoWeFr [facility] Parenteral Vitamin Supplement Calcium Gluconate 0.5 gm/Sodium Chloride 15 meq/Potassium Chloride 10 meq/Sodium Phosphate 7.5 mmol/Amino Acids/Dextrose 1,016.25 mls @ 75 mls/hr IV .BY DURATI ON [facility] Insulin Aspart (Insulin Aspart (Novolog) 100 Unit/Ml Vial) 0 unit SQ ACHS YESSI; Protocol Insulin Aspart (Insulin Aspart (Novolog) 100 Unit/Ml Vial) 5 unit SQ AC-TID YESSI Insulin Detemir (Insulin Detemir (Levemir) 100 Unit/Ml Syr) 30 unit SQ HS YESSI Levothyroxine Sodium (Levothyroxine 75 Mcg Tab) 75 mcg PO DAILY@0630 [facility] Lisinopril (Lisinopril 10 Mg Tab) 10 mg PO DAILY YESSI Lorazepam (Lorazepam 2 Mg/Ml Inj) 0.5 mg IV Q4HR PRN Metformin HCl (Metformin 500 Mg Tab) 500 mg PO AC-TID YESSI L Methylprednisolone Sodium Succinate (Methylprednisolone Sod Succi 40 Mg/Ml 1 Ml Vial) 40 mg IV Q6HR [facility] Senna/Docusate Sodium (Sennosides-Docusate Sodium 1 Each Tab) 1 each PO DAILY S Objective - Vital Signs Vital signs: Vital Signs Temp 97.8 F 06/01/20 11:51 Pulse 104 H 06/01/20 11:51 Resp 25 H 06/01/20 11:51 BP 115/60 06/01/20 11:51 Pulse Ox 89 L 06/01/20 11:51 Intake & Output 05/31/20 06/01/20 06/01/20 18:59 06:59 18:59 Intake Total 746 360 Output Total 525 350 Balance 221 -350 360 Weight 134 kg 134.5 kg Intake: Intake, IV Titration 528 Amount Fat Emulsion 20% 250 ml 168 In Empty Bag 1 bag @ 21 mls/hr IV MoWeFr [facility] Rx#: [id number] Mvi, Adult No.4 with Vit 360 K 10 ml Trace (Conc-1Ml/ Dose) 1 ml Calcium Gluconate 1 gm Sodium Chloride 4Meq/ml Vial 30 meq Potassium Chloride 20 meq Sodium Phosphate 15 mmol In Amino Acid 5%- D15w 1,000 ml @ 30 mls/hr IV .Q24H [facility] Rx#: [id number] Oral 218 360 Output: Urine 525 350 Other: Voiding Method Indwelling Catheter Indwelling Catheter Indwelling Catheter - Exam - Exam - Constitutional General appearance: mild distress, morbidly obese BIpap 23/09 - EENT Eyes: anicteric sclerae, EOMI - Respiratory Respiratory: bilateral: diminished - Cardiovascular Heart sounds: normal: S1, S2 Peripheral Edema: bilateral: Trace - Neurologic Neurologic: CNII-XII intact - Musculoskeletal Musculoskeletal: strength equal bilaterally - Psychiatric Psychiatric: A&O x's 3, appropriate affect, intact judgment & insight - Labs CBC & Chem 7: 05/31/20 10:01 06/01/20 08:49 Labs: Abnormal Lab Results - Last 24 Hours (Table) 05/31/20 05/31/20 06/01/20 Range/Units 17:07 20:18 06:25 Sodium (137-145) mmol/L Chloride (98-107) mmol/L Carbon Dioxide (22-30) mmol/L BUN (7-17) mg/dL Creatinine (0.52-1.04) mg/dL Glucose (74-99) mg/dL POC Glucose (mg/dL) 296 H 340 H 419 H (75-99) mg/dL TSH (0.465-4.680) mIU/L 06/01/20 06/01/20 06/01/20 Range/Units 07:11 08:49 08:49 Sodium 126 L (137-145) mmol/L Chloride 88 L (98-107) mmol/L Carbon Dioxide 33 H (22-30) mmol/L BUN 36 H (7-17) mg/dL Creatinine 0.46 L (0.52-1.04) mg/dL Glucose 347 H (74-99) mg/dL POC Glucose (mg/dL) 388 H (75-99) mg/dL TSH 0.096 L (0.465-4.680) mIU/L 06/01/20 Range/Units 11:49 Sodium (137-145) mmol/L Chloride (98-107) mmol/L Carbon Dioxide (22-30) mmol/L BUN (7-17) mg/dL Creatinine (0.52-1.04) mg/dL Glucose (74-99) mg/dL POC Glucose (mg/dL) 328 H (75-99) mg/dL TSH (0.465-4.680) mIU/L Assessment and Plan Assessment: ASSESSMENT Acute hypoxic respiratory failure secondary to Covid pneumonia Bilateral Covid 19 pneumonia Leukopenia and thrombocytopenia Elevated inflammatory markers Type 2 diabetes mellitus Hypertension Hyperlipidemia Hyponatremia BMI of 47 PLAN: Patient continues to be on BiPAP 16/8 settings and saturating high 80s to low 90s. Continue with Solu-Medrol, breathing treatments, vitamin C, zinc supplements, vitamin D supplements. She has poor p.o. intake she has been started on TPN. In view of ongoing hyponatremia, nephrology has been consulted. Hematology on board and following for thrombocytopenia. Overall prognosis is guarded. Will adjust the dose of insulin depending upon her blood sugars. Further recommendations to follow depending on the progress of the patient.
[2020-06-02] MEDS: [UNRECOGNIZED DRUG - REMARK] IV SCH ×28 (02:14→16:38)
[2020-06-02] MEDS: LORazepam 2 MG/ML INJ IV PRN (06:29)
[2020-06-02] MEDS: metFORMIN 500 MG TAB PO SCH ×3 (06:32→17:23)
[2020-06-02] MEDS: INSULIN ASPART (NovoLOG) 100 UNIT/ML VIAL SQ SCH ×7 (06:32→21:25)
[2020-06-02] MEDS: PANTOPRAZOLE 40 MG TABLET PO SCH ×2 (06:32→17:23)
[2020-06-02] MEDS: LEVOTHYROXINE 75 MCG TAB PO SCH (06:32)
[2020-06-02] MEDS: methylPREDNISolone SOD SUCCI 40 MG/ML 1 ML VIAL IV SCH ×4 (06:32→23:51)
[2020-06-02] MEDS: GLIMEPIRIDE 4 MG TAB PO SCH (06:32)
[2020-06-02 06:36] LABS: Glucose,Whole Blood 315 mg/dL (75-99)
[2020-06-02 07:25] LABS: Glucose,Whole Blood 333 mg/dL (75-99)
[2020-06-02] MEDS: MAG HYDROX/AL HYDROX/SIMETH 30 ML CUP PO SCH ×4 (08:23→21:25)
[2020-06-02] MEDS: lisinopriL 10 MG TAB PO SCH (08:24)
[2020-06-02] MEDS: CYANOCOBALAMIN 500 MCG TAB PO SCH (08:24)
[2020-06-02] MEDS: SENNOSIDES-DOCUSATE SODIUM 1 EACH TAB PO SCH (08:24)
[2020-06-02] MEDS: ASCORBIC ACID 500 MG TAB PO SCH (08:24)
[2020-06-02] MEDS: allopurinoL 100 MG TAB PO SCH (08:24)
[2020-06-02] MEDS: ATORVASTATIN 40 MG TAB PO SCH (08:24)
[2020-06-02] MEDS: DEMECLOCYCLINE 150 MG TAB PO SCH ×2 (08:24→23:50)
[2020-06-02] MEDS: ESCITALOPRAM 20 MG TAB PO SCH (08:24)
[2020-06-02] MEDS: CHOLECALCIFEROL 25 MCG (1000 IU) TABLET PO SCH (08:24)
[2020-06-02] MEDS: ZINC SULFATE 220 MG CAP PO SCH (08:24)
[2020-06-02] MEDS: GABAPENTIN 300 MG CAP PO SCH ×4 (08:24→21:25)
[2020-06-02] MEDS: FERROUS SULFATE 325 MG TAB PO SCH (08:24)
[2020-06-02] MEDS: NAPHAZOLINE-PHENIRA 0.025-0.3% DROPS 15 ML BTL BOTH EYES SCH ×3 (08:25→17:24)
[2020-06-02 09:37] LABS: Anisocytosis Slight; Basophils % (A) 0 %; Eosinophils % (A) 1 %; HCT 33.7 % (34.0-46.0); HGB 11.4 gm/dL (11.4-16.0); Lymphocytes # (A) 0.2 k/uL (1.0-4.8); Lymphocytes % (A) 11 %; MCH 30.6 pg (25.0-35.0); Mean Platelet Volume 9.8; Monocytes # (A) 0.1 k/uL (0-1.0); Monocytes % (A) 6 %; Neutrophils # (A) 1.6 k/uL (1.3-7.7); Neutrophils % (A) 81 %; RBC 3.74 m/uL (3.80-5.40); WBC 1.9 k/uL (3.8-10.6)
[2020-06-02 09:44] LABS: Platelet Count 32 k/uL (150-450)
[2020-06-02 09:51] LABS: Prothrombin Time 10.7 sec (9.0-12.0)
[2020-06-02 09:58] LABS: Partial Thromboplastin Time 20.1 sec (22.0-30.0)
[2020-06-02 10:01] LABS: ALT 175 U/L (4-34); AST 70 U/L (14-36); African American GFR (CKD) >90 (>60 ml/min/1.73 sqM); Albumin 2.6 g/dL (3.5-5.0); Alkaline Phosphatase 229 U/L (38-126); Anion Gap 5 mmol/L; Blood Urea Nitrogen 35 mg/dL (7-17); Calcium 8.6 mg/dL (8.4-10.2); Carbon Dioxide 35 mmol/L (22-30); Chloride 87 mmol/L (98-107); Glucose 317 mg/dL (74-99); Magnesium 2.1 mg/dL (1.6-2.3); Non-African American GFR(CKD) >90 (>60 ml/min/1.73 sqM); Phosphorus 3.1 mg/dL (2.5-4.5); Potassium 4.5 mmol/L (3.5-5.1); Sodium 127 mmol/L (137-145)
--- NOTE | 2020-06-02 11:05 | P.PN ---
Subjective Progress Note Date: 06/02/20 Principal diagnosis: 59-year-old female who was admitted on 05/05/2020 with COVID-19 pneumonia. She is being seen because of hyponatremia, thought to be from transcellular shift from the high blood sugar. TSH drawn is normal. Sodium went down on 05/20/2020 from 133-to 132 and slowly Down to 126. She Was started on demeclocycline. Patient is currently on BiPAP on 100% FiO2 and feels tired and stressed out. She is on TPN, started on 05/30/2020. Further workup has shown urine osmolality of 1047, urine sodium less than 10 suggestive of volume depletion. Creatinine 0.49 with a BUN of 35. Objective - Vital Signs Vital signs: Vital Signs Temp 98.0 F 06/02/20 08:21 Pulse 97 06/02/20 08:21 Resp 19 06/02/20 08:21 BP 113/56 06/02/20 08:21 Pulse Ox 88 L 06/02/20 08:21 Intake & Output 06/01/20 06/02/20 06/02/20 18:59 06:59 18:59 Intake Total 1737.25 0 Output Total 750 Balance 1737.25 -750 0 Weight 134 kg Intake: Intake, IV Titration 1027.25 Amount Mvi, Adult No.4 with Vit 1027.25 K 10 ml Trace (Conc-1Ml/ Dose) 1 ml Calcium Gluconate 0.5 gm Sodium Chloride 4Meq/ml Vial 15 meq Potassium Chloride 10 meq Sodium Phosphate 7.5 mmol In Amino Acid 5%- D15w 1,000 ml @ 75 mls/hr IV .BY DURATION [facility] Rx#: [id number] Oral 710 0 Output: Urine 750 Other: Voiding Method Indwelling Catheter Indwelling Catheter Indwelling Catheter On exam she is awake alert and responsive. Currently on 100% FiO2 via BiPAP HEENT exam no JVP neck is supple no facial asymmetry Lungs are clear to auscultation with an occasional fine crackle at bases Good air entry bilaterally Heart sounds unremarkable for any murmur rub gallop Abdomen soft nontender Extremity exam reveals trace edema Neurologically awake alert oriented - Labs CBC & Chem 7: 06/02/20 08:42 06/02/20 08:42 Labs: Abnormal Lab Results - Last 24 Hours (Table) 04/06/01/20 06/01/20 Range/Units 08:49 11:49 17:08 WBC (3.8-10.6) k/uL RBC (3.80-5.40) m/uL Hct (34.0-46.0) % RDW (11.5-15.5) % Plt Count (150-450) k/uL Lymphocytes # (1.0-4.8) k/uL APTT (22.0-30.0) sec Sodium (137-145) mmol/L Chloride (98-107) mmol/L Carbon Dioxide (22-30) mmol/L BUN (7-17) mg/dL Creatinine (0.52-1.04) mg/dL Glucose (74-99) mg/dL POC Glucose (mg/dL) 328 H 351 H (75-99) mg/dL AST (14-36) U/L ALT (4-34) U/L Alkaline Phosphatase (38-126) U/L Total Protein (6.3-8.2) g/dL Albumin (3.5-5.0) g/dL TSH 0.096 L (0.465-4.680) mIU/L 06/01/20 06/02/20 06/02/20 Range/Units 20:01 06:32 07:23 WBC (3.8-10.6) k/uL RBC (3.80-5.40) m/uL Hct (34.0-46.0) % RDW (11.5-15.5) % Plt Count (150-450) k/uL Lymphocytes # (1.0-4.8) k/uL APTT (22.0-30.0) sec Sodium (137-145) mmol/L Chloride (98-107) mmol/L Carbon Dioxide (22-30) mmol/L BUN (7-17) mg/dL Creatinine (0.52-1.04) mg/dL Glucose (74-99) mg/dL POC Glucose (mg/dL) 318 H 315 H 333 H (75-99) mg/dL AST (14-36) U/L ALT (4-34) U/L Alkaline Phosphatase (38-126) U/L Total Protein (6.3-8.2) g/dL Albumin (3.5-5.0) g/dL TSH (0.465-4.680) mIU/L 06/02/20 06/02/20 06/02/20 Range/Units 08:42 08:42 08:42 WBC 1.9 L (3.8-10.6) k/uL RBC 3.74 L (3.80-5.40) m/uL Hct 33.7 L (34.0-46.0) % RDW 18.0 H (11.5-15.5) % Plt Count 32 L (150-450) k/uL Lymphocytes # 0.2 L (1.0-4.8) k/uL APTT 20.1 L (22.0-30.0) sec Sodium 127 L (137-145) mmol/L Chloride 87 L (98-107) mmol/L Carbon Dioxide 35 H (22-30) mmol/L BUN 35 H (7-17) mg/dL Creatinine 0.49 L (0.52-1.04) mg/dL Glucose 317 H (74-99) mg/dL POC Glucose (mg/dL) (75-99) mg/dL AST 70 H (14-36) U/L ALT 175 H (4-34) U/L Alkaline Phosphatase 229 H (38-126) U/L Total Protein 5.0 L (6.3-8.2) g/dL Albumin 2.6 L (3.5-5.0) g/dL TSH (0.465-4.680) mIU/L Assessment and Plan Assessment: Impression 1. Hyponatremia secondary to combination of high blood sugar with transcellular shift of water from intracellular compartment but also the urine studies are suggestive of volume depletion. Urine osmole 1047 and urine sodium is less than 10. Hypothyroidism ruled out. 2 covid 19pneumonia on BiPAP, 100% FiO2 3. History of diabetes mellitus. 4. Mild alkalosis improving, bicarb is 33. This may be a reflection of the steroids she is on. Recommendation 1. Control blood sugar 2. Increase sodium in the TPN, to undergo milliequivalents. 3. Monitor labs
[2020-06-02 11:58] LABS: Glucose,Whole Blood 331 mg/dL (75-99)
--- NOTE | 2020-06-02 16:01 | P.PN ---
Subjective Progress Note Date: 06/02/20 Principal diagnosis: Acute hypoxic respiratory failure secondary to acute covid 19 pneumonia 79-year-old female patient, morbidly obese with a BMI of 47, was hospitalized for COVID 19 related pneumonia. The patient currently is hypoxic on 3 L of oxygen by nasal cannula. She has comorbidities including obesity with a BMI of 47, hypertension, diabetes mellitus and gout. She also has hyperlipidemia and hypothyroidism. The patient started getting symptoms approximately a week ago, on 04/28/2020 and the patient was diagnosed having Covid 19 infection for a primary care physician's office on 04/29.. She continued to have episodes of fever and subsequently she became progressively more short of breath necessitating emergency department visitation today and ultimately she was hospitalized. Her chest x-ray showing bilateral pulmonary infiltrates peripheral distribution more so on the right compared to the left. The patient was started on steroids.. She is slightly nauseated. She also has loss of taste and smell LDH level is currently at 802 with a CRP of 55 and she had a lactic acid level of 2.1 at the time of admission. There d-dimer is still pending for now. Her white cell count is at 1.4 and the patient is lymphopenic with a lymphocyte count of 0.6 and there is also a drop in her platelet count down to 80 and these are all manifestations of COVID 19 infection. On today's evaluation of 04/27/2020, the patient's oxygenation has gotten worse. I saw her in the emergency department yesterday and she was on 4 L. She progressively required higher oxygen flow and she went up to a high flow oxygen through the nasal cannula airvo which she feels a currently she is on a BiPAP at a pressure of 10/5 with an FiO2 of 100%. She is able to generate a tidal volume around 450-500. Respiratory rate is in the mid 30s low 40s. She feels well. She is in mild degree of respiratory distress. She is still able to converse and talk to her BiPAP mask. Her current pulse ox is 94%. 60 showing diffuse breath and pulmonary infiltrates consistent with Covid 19 related pneumonia. Her white cell count is still down at 1.2. Platelet count is at 70 now which is low. D-dimer is at 0.65, her LDH level is at 835 with a CRP of 56. She is on Decadron. I'm going to switch her to Solu-Medrol. She is currently taking REM should be considered for convalescent plasma and addition to Tocilizumab The patient is seen today 05/06/2020 in follow-up on the regular medical floor. She is currently sitting up in bed. Awake and alert in no acute distress. Cu rrently on BiPAP 10/5 and 100% FiO2. Current saturation 88%. Chest x-ray reveals mild, medically. Residual bilateral airspace disease. Improving compared to previous. This is day #3 of Remdesivir. She received convalescent plasma 1, tocilizumab. D-dimer 0.84. C-reactive protein 2.8. LDH 459. She remains on Decadron, IV Solu-Medrol, vitamin supplements. Patient was reevaluated today on 05/09/2020, remains on BiPAP, she is on 100%, O2 sats is 94%. Surprisingly, the patient seems to be doing well in spite of her significant O2 requirement and BiPAP. Patient received REM, she also received convalescent plasma and ACTEMRA. And so far does not seem to be making that significant turnaround and significant clinical improvement. CBC and basic metabolic profile are normal except for WBC count is 2.0 today. Patient was reevaluated today on 05/10/2020, still requiring significant amount of FiO2, she remains on BiPAP at 90% FiO2, she is on IPAP of 10 and EPAP of 5, and O2 saturation remains marginal. Clinically however the patient feels better breathing easier, and have d-dimer is not that significantly elevated but it is nonetheless abnormal. Hence I recommended a CT angiogram of the chest to be done today. Renal profile is normal. CBC continues to show leukopenia with WBC count of 2.0. Electrolytes are normal. Patient was reevaluated today on 05/11/2020, patient is basically about the same. Remains on BiPAP. Her FiO2 is still at 90%, and her O2 saturation is in the low 90s. Patient is on IPAP of 10 and EPAP of 5, seems to be very comfortable. CT angiogram of the chest yesterday showed bilateral interstitial infiltrates, no evidence of thromboembolic disease/pulmonary embolism. WBC count is 2.2 hemoglobin is 11.6. A left lites are normal renal profile is normal clinically the patient is fairly comfortable, however she is still requiring significant high FiO2. Reevaluated today on 05/12/2020, patient is feeling much better today, breathing a lot easier, she is now on 80% FiO2 remains on BiPAP with IPAP of 10 and EPAP of 5. But her FiO2 was cut down to 80%, and I will cut it down further to 70% and her O2 saturation seems to be significantly improved. Patient feels that she felt much better after the Lasix was given yesterday. I will recommend another dose of Lasix to be given today. Her CT angiogram of the chest yesterday questioned mild interstitial edema. However I felt it was all related to her underlying Covid 19 pneumonitis. Nonetheless Lasix was given, and clinically the patient felt better. Labs today were all reviewed she had WBC count of 2.3 hemoglobin 12.4 lites are normal renal profile remains normal. Progress note dated 05/13/2020. Currently, the patient remains on BiPAP, at 70%. She's feeling better today. She feels less short of breath. Her BiPAP settings are IPAP 10, and EPAP 5. I did tell the patient to move around when she is lying in bed. She should lie down on her right side, left side, supine, and if possible, try to prone herself. Current laboratory data includes a white count of 2, hemoglobin 11.7, hematocrit 35.2, platelet count 94,000. Sodium is 136, potassium 3.4, chlorides 101, CO2 33, anion gap 2, BUN [address], [address] angiogram on May 10 showed no evidence of pulmonary embolism, but did show moderately severe pulmonary interstitial edema/infiltrates. Progress note dated 05/14/2020. The patient remains on BiPAP at 70%. She feels much improved. Her IPAP of 10 and EPAP is fine. She's feeling much less short of breath. I did tell her to move around in bed, right side down, left side down, supine, and even on her stomach if she can. No new labs today to look at. No recent chest x-rays to evaluate either. Medications are appropriate at this time. CT angiogram from May 10 is reviewed. Progress note dated 05/15/2020. The patient remains on BiPAP, settings of IPAP 10, and EPAP of 5. She is on 70%. Her saturations are right around 90% or so. Despite that, the patient states that she is feeling much better. She has been moving around in bed. His been laying on her right side, left side, supine, even on her stomach at times. No new labs today other than a sodium of 137, potassium 4, chloride 98, CO2 34, anion gap 5, BUN 19, creatinine 0.67. The patient is seen today 05/16/2020 in follow-up on the selective care unit. She is currently resting fairly comfortably in bed. She is continued on BiPAP currently 10/5 and 70% FiO2. She is maintaining O2 saturations about 85-86%. Today she is feeling mostly tired and fatigued. Breathing is about the same. No better but no worse currently. She remains on IV Solu-Medrol, Lovenox, vitamin supplements. Blood glucose 146. The patient is seen today 05/17/2020 in follow-up on the selective care unit. She remains awake and alert in no acute distress. She is still requiring BiPAP support 10/5 and 80% FiO2 to maintain O2 saturations in the mid 80s. She's been afebrile. Hemodynamically stable. Chest x-ray reveals cardiomegaly, continued bilateral airspace disease, slightly worsened compared to previous. Sodium 133. Potassium 4.5. Creatinine 0.67. She remains on Lovenox, IV Solu-Medrol, v itamin supplements. The patient is seen today 05/19/2020 in follow-up on the selective care unit. She is currently sitting up at the bedside. Awake and alert in no acute distress. She is still on BiPAP 12/6 and 90% FiO2. White count 4.3. Hemoglobin 12.6. Platelet count dropped to 37,000. Lymphocytes 0.3. Sodium 133. Potassium 4.5. Creatinine 0.71. Remains on IV Solu-Medrol, vitamin s upplements. Lovenox which will be held. 05/20/2020 the patient is being seen for a follow-up. The patient remains on BiPAP at a pressure of 12/6 with an FiO2 of 90%. Remains on IV Solu-Medrol. She is awake and alert. She denies having any significant shortness of breath. Hemodynamically stable. She had prolonged hospitalization due to complications of Covid 19. She is a morbidly obese female patient with a BMI of 49. She was initially on 3 L about 2 by nasal cannula. She is known to have diabetes, gout and hypertension and hyperlipidemia and hypothyroidism. The patient was diagnosed on 04/28/2020 and since then her condition progressively decompensated. She was aggressively treated over the past 2 weeks here in the hospital and her blood work showing a component of thrombocytopenia, for that reason anticoagulation was held. The patient remains on IV Solu-Medrol. She is taking 60 mg IV every 6 hours. The last chest x-ray was done on May 17 the patient had bilateral lower lobe pulmonary infiltrates . Also, there is history drop in the platelet count which is down to 30. Her white second is at 2.5 with a hemoglobin of 11.7. Rest of the blood work essentially within normal limits. The latest chest x-ray was done on 05/09/2020. She is able to tolerate the BiPAP reasonably well. Her pulse ox is a mid 80s this morning. She is able to generate a tidal volume of IVC with a respiratory rate of 26 cm ventilation of 15. She is currently off Lovenox. She is not taking any antiplatelet agents. Levaquin is a 15 units a day along with 5 units with meals 3 times a day. She is also developing increased swelling in lower extremities On today's evaluation, the patient is being seen for follow-up for Covid 19 related pneumonia. The patient is still on BiPAP at a pressure of 12/6 with an FiO2 of 90%. Her pulse ox is around 91%. She is hemodynamically stable. The patient is morbidly obese and her current BMI is 49.7. Note that she progressively got worse and she end up on BiPAP therapy. She is on IV Solu Medrol 60 mg every 6 hours. Her chest x-ray showing some limited improvement from yesterday where the diaphragms were better visualized. She is able to tolerate the BiPAP well. On today's evaluation, the patient is generating a tidal volume of 750 and her current respiratory rate is in the order of 20-27. She had some increased swelling in lower extremity bilaterally and the patient was started on Lasix yesterday and the patient is a negative fluid balance of 750 mL over the past 24 hours. She is still has significant amount of edema and she remains on Lasix at a dose of 40 mg IV every 12 hours. Platelet count currently is down to 30. DIC profile was essentially negative. The inflammatory markers from yesterday were elevated. On 05/22/2020 currently the patient remains on BiPAP at a pressure of 12/6 with an FiO2 of 90%. Her saturations remained marginal. The patient is generating adequate tidal volumes of 570 on her machine. She was started on diuretics yesterday and the patient has been negative fluid balance of 2 L over the past 24 hours. She is awake and calm and comfortable. She wasn't having issues with thrombocytopenia. The platelet count today is 23. Hematology is going to evaluate the patient. The coagulation profile is within normal limits. LDH level is at 1590 with a CRP of less than 5. She is awake and alert. She is following commands and answering questions face is able to take sips of soup and oatmeal. She is resting comfortably in bed. She remains on IV Solu-Medrol. She is also on Lasix 40 mg IV every 12 hours. She is also on Levemir insulin 15 units along with a prescription coverage. No anticoagulation for now because of her underlying thrombocytopenia. On 05/23/2020 I'm seeing the patient for a follow-up. She is awake and alert. She still on a BiPAP at a pressure of 12/6 cm of water. She has also an FiO2 of 90%. Overall, she is awake and alert and she is following commands and answering questions. She remains in good spirits she is calm and comfortable. No new complaints pH remains on IV Solu-Medrol. She also on Lasix 40 mg every 12 hours. Her platelet counts are still low at 19,000. The patient was seen by hematology. The patient was given units of cryoprecipitate yesterday. In terms of her pulmonary status, the patient is stable. The patient is not having any signs of bleeding. She is unable to tolerate some oral intake. In terms of her inflammatory markers, the levels are still up with an LDH level of 161, CRP of less than 5. Her AHI the antibodies came back negative. Rest of the blood work is all within normal limits. I will see her condition essentially unchanged compared to yesterday. In terms of her blood sugar control, the patient is on Levemir insulin 15 units in addition to NovoLog 5 units with meals and a sliding scale coverage. No chest x-ray from today. Her last chest x-ray was from yesterday. 05/24/2020, the patient remains on BiPAP 12/6 with an FiO2 of 90%. She is on IV Solu-Medrol. Platelet counts remain unchanged at 19,000. Her blood work from today shows some mild transaminitis. LDH level is 1541, nor and the CRP level is less than 5, lower. The white cell count is at 4 with a hemoglobin of 12.8. No new complaints pH is able to communicate. She is tolerating diet. No nausea. No vomiting. No diarrhea. No abdominal pain. She is on Levemir insulin 20 units along with NovoLog 5 units with meals and a sliding scale coverage. Her current pulse ox is 88%. Unable to wean her off the BiPAP for now. Chest x-ray showing some limited improvement in aeration of the lungs bilaterally. On examination, she continues to have some crackles. She does have some underlying cardiomegaly on the chest x-ray and the lower lobe pulmonary infiltrates have slightly improved on the most recent chest x-ray was done today. Lapper of the case regarding the thrombocytopenia. Cardiology is also on the case regarding hypertension. She is currently on a combination of lisinopril and hydrochlorothiazide. 05/25/2020 the patient remains on 12/6 BiPAP with an FiO2 of 90%. She remains BiPAP dependent and her current pulse ox is around 90% and she is unable to wean off her FiO2. No significant tachypnea. Her respiratory rate currently is at mid 20s and her tidal volumes above 450. She is having some discomfort in her chest probably related to some heartburn. Oral intake is minimal and the pina ent is basically taking shakes and soft diet. Her platelet count today is down to 18. Hematology is monitoring this and the recommendations is to transfuse this patient with platelets under 15 K and some cryoprecipitate once the fibrinogen under 100.. The patient is not having any bleeding complications for now. On her blood work, she has a sodium of 129 and the renal function is stable. Her LFTs are still abnormal and she has some mild chest and pneumonitis. LDH is 1438 and the CRP level is less than 5. D-dimer from yesterday was 0.7. No recent chest x-ray from today. The chest x-ray from yesterday was showing bilateral pulmonary infiltrates more so in the lung bases more so on the left. As far as treatment, she remains on IV Solu-Medrol 60 mg every 6 hours and she is also on Lasix 40 mg on a daily basis to maintain her fluid balance. 2020, patient remains on BiPAP with an FiO2 of 100% and the pressures of 12/6. Current pulse ox is around 90%. Afebrile. Hemodynamically stable. Continues to have a respiratory rate in the mid 20s. She is very much tolerant to the BiPAP and she has limited reserve as the patient desaturates with coughing, talking, movement, etc. She is still trying to keep on with her nutrition through shakes and the patient is also eating. The inflammatory markers are still pending for today. The LDH from yesterday was 1438 and the CRP was 5.4 and as such the LDH level continues to be elevated. D-dimer is low at 0.5. Platelet count is at 19 and hematology is on the case. No platelet transfusions unless her platelet count is less than 15,000 per hematology. Otherwise, no other significant events. The patient remains on IV Solu-Medrol. She is currently at a dose of 40 mg every 12 hours of the patient's other medical dose was tapered yesterday. She has been the hospital for more than 3 weeks and she's been on steroids since. Most recent chest x-ray from today showing stable bilateral pulmonary infiltrates and the infiltrates are diffuse involving the upper and lower lobes bilaterally. Lung volumes are essentially small. She is also on Lasix once daily and we stopped her hydrochlorothiazide. Her sodium level today is pending, from yesterday was 129, she does have some ongoing transaminitis. Patient was reevaluated today on 05/27/2020, remains on BiPAP. 100% FiO2, with IPAP of 12 and EPAP of 6, and her O2 saturation remains marginal. Patient looks comfortable. Chest x-ray continues to show bilateral patchy infiltrates, not severe enough to explain all her profound hypoxemia. Hence I am recommending a CT angiogram on this patient to rule out the possibility of pulmonary embolism. D-dimer is borderline elevated. Patient cannot go on heparin because of her platelets, however if we need to give her heparin, will place the patient on argatroban CBC is relatively normal otherwise. Her sodium remains low at 127, remains on fluid restrictions, and at times she received diuretics. Her creatinine today is 0.77 liver enzymes remain elevated with AST of 97 ALT of 218 and alkaline phosphatase of 229 Reevaluated today on 05/28/2020, remains on BiPAP on 100%, IPAP of 12 EPAP of 6, continues to have marginal O2 saturations. Patient continues to have low platelets, CT angiogram of the chest which was ordered yesterday was negative. Surprisingly, the patient is doing well clinically, does not complain of shortness of breath although her O2 saturation is marginal. CBC is relatively normal today except for low platelets of 18.5. Sodium remains low at 126. Renal profile showed a BUN of 44 creatinine 0.70. Liver enzymes remain borderline elevated with AST of 210 and alkaline phosphatase of 227. Patient was reevaluated today on 05/29/2020, remains on BiPAP and on the percent FiO2, IPAP of 12 EPAP of 6, O2 saturation remains very marginal at best. Surprisingly, and clinically the patient continues to do well, does not seem to be in any distress. Patient remains on the multiple medications/COVID-19 cocktail. Remains on steroids, today I increased her methylprednisolone 40 mg IV push every 6 hours. Sodium remains low in spite of fluid restriction and demeclocycline. WBC count is 2.7, platelets remained low at 23,000. BUN is 52 creatinine 0.73, Lasix remains on hold. Transaminases are borderline elevated. Patient was reevaluated today on 05/30/2020, no major change in the last 24 hours, remains on BiPAP, remains with marginal O2 saturation, remains on relatively high FiO2 100%, she is also on IPAP of 12 EPAP of 6, no business change manager the last 24 hours or even in the last 1 week. Remains on steroids, she is now on methylprednisolone at 40 mg IV push every 6 hours, patient is not eating well, I am recommending TPN via PICC line. Labs including electrolytes, renal profile, CBC were all reviewed and noted. C-reactive protein on this patient was not done today, but the last one was 0.8. Sodium remains low at 126. Renal profile is normal. Bicarb is 36 Patient was reevaluated today on 05/31/2120, patient is basically about the same. Patient is not getting any better and she is not getting any worse. Remains on high FiO2, remains on BiPAP with IPAP of 12 EPAP of 6, remains on methylprednisolone, she is receiving TPN via PICC line, and overall not much of a change on this patient over the last 2 weeks. Patient was reevaluated today on 06/01/2020, remains on high flow oxygen, she is on BiPAP, not much of a change, IPAP is 12 EPAP of 6, FiO2 remains on the perce nt, O2 saturation remains marginal in the high 80s and no 90s. Overall the patient is not making any progression not for the better and not for the worse. She is about the same over the last 2 weeks. Continues to have elevated blood sugar of 328. Her sodium remains at 126. BUN is 36 creatinine is 0.46. He evaluated by nephrology for her hypernatremia which is felt to be related to high blood sugar and dilutional as well as related to low blood pressure. And low sodium intake. Possible hypothyroidism, and that being evaluated Reevaluated today on 06/02/2020, patient remains about the same, remains on BiPAP, IPAP of 16 and EPAP of 6, FiO2 is 100%, O2 saturation remains marginal at best. Patient is using the BiPAP all the time, on TPN for nutritional support. WBC count is 1.9 hemoglobin is 11.4. Sodium remains low at 127. Otherwise her basic metabolic profile is normal renal profile is normal blood sugar is running a bit high at 317. Last chest x-ray showed no change this was done a few days ago. CT angiogram done on the showed no evidence of thromboembolic disease. Objective - Vital Signs Vital signs: Vital Signs Temp 97.9 F 06/02/20 12:13 Pulse 97 06/02/20 13:08 Resp 23 06/02/20 13:08 BP 111/56 06/02/20 12:13 Pulse Ox 89 L 06/02/20 12:13 Intake & Output 06/01/20 06/02/20 06/02/20 18:59 06:59 18:59 Intake Total 1737.25 120 Output Total 750 550 Balance 1737.25 -750 -430 Weight 134 kg Intake: Intake, IV Titration 1027.25 Amount Mvi, Adult No.4 with Vit 1027.25 K 10 ml Trace (Conc-1Ml/ Dose) 1 ml Calcium Gluconate 0.5 gm Sodium Chloride 4Meq/ml Vial 15 meq Potassium Chloride 10 meq Sodium Phosphate 7.5 mmol In Amino Acid 5%- D15w 1,000 ml @ 75 mls/hr IV .BY DURATION [facility] Rx#: [id number] Oral 710 120 Output: Urine 750 550 Other: Voiding Method Indwelling Catheter Indwelling Catheter Indwelling Catheter - Exam Physical Exam: Revealed a 59-year-old female on BiPAP, 100 percent FiO2. Head: Is atraumatic normocephalic. HEENT:[Neck is supple.] [No neck masses.] [No thyromegaly.] [No JVD.] Chest: [Symmetrical chest expansion, crackles at the bases bilaterally. Cardiac Exam: [Normal S1 and S2, no S3 gallop, no murmur.] Abdomen: [Soft, nontender, no megaly, no rebound, no guarding, normal bowel sounds.] Extremities: [No clubbing, no edema, no cyanosis.] Neurological Exam: [No focal neurologic deficit.] Alert and oriented 3. Psychiatric: Normal mood affect and normal mental status examination. - Labs CBC & Chem 7: 06/02/20 08:42 06/02/20 08:42 Labs: Abnormal Lab Results - Last 24 Hours (Table) 06/01/20 06/01/20 06/02/20 Range/Units 17:08 20:01 06:32 WBC (3.8-10.6) k/uL RBC (3.80-5.40) m/uL Hct (34.0-46.0) % RDW (11.5-15.5) % Plt Count (150-450) k/uL Lymphocytes # (1.0-4.8) k/uL APTT (22.0-30.0) sec Sodium (137-145) mmol/L Chloride (98-107) mmol/L Carbon Dioxide (22-30) mmol/L BUN (7-17) mg/dL Creatinine (0.52-1.04) mg/dL Glucose (74-99) mg/dL POC Glucose (mg/dL) 351 H 318 H 315 H (75-99) mg/dL AST (14-36) U/L ALT (4-34) U/L Alkaline Phosphatase (38-126) U/L Total Protein (6.3-8.2) g/dL Albumin (3.5-5.0) g/dL 06/02/20 06/02/20 06/02/20 Range/Units 07:23 08:42 08:42 WBC 1.9 L (3.8-10.6) k/uL RBC 3.74 L (3.80-5.40) m/uL Hct 33.7 L (34.0-46.0) % RDW 18.0 H (11.5-15.5) % Plt Count 32 L (150-450) k/uL Lymphocytes # 0.2 L (1.0-4.8) k/uL APTT (22.0-30.0) sec Sodium 127 L (137-145) mmol/L Chloride 87 L (98-107) mmol/L Carbon Dioxide 35 H (22-30) mmol/L BUN 35 H (7-17) mg/dL Creatinine 0.49 L (0.52-1.04) mg/dL Glucose 317 H (74-99) mg/dL POC Glucose (mg/dL) 333 H (75-99) mg/dL AST 70 H (14-36) U/L ALT 175 H (4-34) U/L Alkaline Phosphatase 229 H (38-126) U/L Total Protein 5.0 L (6.3-8.2) g/dL Albumin 2.6 L (3.5-5.0) g/dL 06/02/20 06/02/20 Range/Units 08:42 11:56 WBC (3.8-10.6) k/uL RBC (3.80-5.40) m/uL Hct (34.0-46.0) % RDW (11.5-15.5) % Plt Count (150-450) k/uL Lymphocytes # (1.0-4.8) k/uL APTT 20.1 L (22.0-30.0) sec Sodium (137-145) mmol/L Chloride (98-107) mmol/L Carbon Dioxide (22-30) mmol/L BUN (7-17) mg/dL Creatinine (0.52-1.04) mg/dL Glucose (74-99) mg/dL POC Glucose (mg/dL) 331 H (75-99) mg/dL AST (14-36) U/L ALT (4-34) U/L Alkaline Phosphatase (38-126) U/L Total Protein (6.3-8.2) g/dL Albumin (3.5-5.0) g/dL Assessment and Plan Assessment: 1 acute Covid 19 related pneumonia, and ARDS. symptoms started on 04/28/2020, diagnosed to be positive on 04/29/2020 received rem,toci, and convalescent plasma 2 acute hypoxic respiratory failure secondary to above 3 fever secondary to above, resolved. 4 leukopenia, lymphopenia and thrombocytopenia secondary to above 5 elevation of inflammatory markers secondary to Covid 19 infection 6 obesity with a BMI of 47.0 7 diabetes mellitus type 2 8 hypertension 9 hyperlipidemia 10 hypothyroidism 7 thrombocytopenia most likely secondary to sepsis, and COVID-19 infection, being addressed by hematology on the case. 8 hyponatremia , multifactorial. Recommendation: Continue BiPAP. And titrate accordingly. Patient received all the different treatments for COVID-19 pneumonia. Continue Solu-Medrol 40 mg IV push every [address] the patient on Zosyn since her chest x-ray is not showing much improvement and the patient is not making any improvement clinically whatsoever. Consider repeat pro calcitonin. Prognosis is definitely poor and guarded. Continue TPN. Not ready for any discharge planning. We'll continue to follow. Time with Patient: Less than 30
[2020-06-02] MEDS ORDERED: PIPERACILLIN-TAZOBACTAM 3.375 GM in SODIUM CHLORIDE 0.9% 100 ML IVPB ONE (16:15)
[2020-06-02 17:07] LABS: Glucose,Whole Blood 325 mg/dL (75-99)
[2020-06-02 19:51] LABS: Glucose,Whole Blood 292 mg/dL (75-99)
[2020-06-02] MEDS: BACLOFEN 10 MG TAB PO SCH (21:24)
[2020-06-02] MEDS: INSULIN DETEMIR (LEVEMIR) 100 UNIT/ML SYR SQ SCH (21:25)
[2020-06-02] MEDS: PIPERACILLIN-TAZOBACTAM 3.375 GM in SODIUM CHLORIDE 0.9% 100 ML IVPB SCH (23:50)
--- NOTE | 2020-06-03 00:04 | P.PN ---
Subjective Progress Note Date: 06/02/20 Principal diagnosis: acute hypoxic respiratory failure secondary to Covid pneumonia. Covering for Dr. Aviles over the weekend Ms. Balderas is a 59-year-old female with a past medical history of hypertension, diabetes, obesity admitted with acute hypoxic respiratory failure secondary to Covid pneumonia. Patient received remdesivir dexamethasone antibiotics and multivitamins. She has been in the hospital for almost 4 weeks. On 06/01/2020 -patient is seen and examined at bedside. She states that her difficulty in breathing is the same. She continues to be on BiPAP 12/6, FiO2 100% and saturating in high 80s to low 90s. Patient denies having any chest pain or palpitations. No abdominal pain nausea vomiting or diarrhea. No dysuria or hematuria. On reviewing the vitals T-max 98, heart rate 90s 200s, blood pressure 90-100/50-60. On reviewing her labs sodium 126, potassium 4.3, chloride 88, bicarb 33, BUN 36, creatinine 0.46. Nephrology has been consulted in view of her hyponatremia. On 06/02/2020-patient was seen and examined at bedside. She still continues to have difficulty in breathing and currently on BiPAP 16/6, 100% FiO2 and saturating high 80s to low 90s. Temperature 98, heart rate 90, respiratory 21, blood pressure 104 x 56. On reviewing her labs white count of 1.9, hemoglobin 11.7, platelets 32. Sodium 127, potassium 4.5, chloride 87, bicarb 35, BUN 35, creatinine 0.49. Albumin 2.6. Patient's medications have been reviewed. Objective - Vital Signs Vital signs: Vital Signs Temp 97.9 F 06/02/20 12:13 Pulse 97 06/02/20 13:08 Resp 23 06/02/20 13:08 BP 111/56 06/02/20 12:13 Pulse Ox 89 L 06/02/20 12:13 Intake & Output 06/01/20 06/02/20 06/02/20 18:59 06:59 18:59 Intake Total 1737.25 120 Output Total 750 550 Balance 1737.25 -750 -430 Weight 134 kg Intake: Intake, IV Titration 1027.25 Amount Mvi, Adult No.4 with Vit 1027.25 K 10 ml Trace (Conc-1Ml/ Dose) 1 ml Calcium Gluconate 0.5 gm Sodium Chloride 4Meq/ml Vial 15 meq Potassium Chloride 10 meq Sodium Phosphate 7.5 mmol In Amino Acid 5%- D15w 1,000 ml @ 75 mls/hr IV .BY DURATION [facility] Rx#: [id number] Oral 710 120 Output: Urine 750 550 Other: Voiding Method Indwelling Catheter Indwelling Catheter Indwelling Catheter - Exam - Exam - Constitutional General appearance: mild distress, morbidly obese BIpap 16/6 - EENT Eyes: anicteric sclerae, EOMI - Respiratory Respiratory: bilateral: diminished - Cardiovascular Heart sounds: normal: S1, S2 Peripheral Edema: bilateral: Trace - Neurologic Neurologic: no focal deficits - Musculoskeletal Musculoskeletal: strength equal bilaterally - Psychiatric Psychiatric: A&O x's 3, appropriate affect, intact judgment & insight - Labs CBC & Chem 7: 06/08/20 04:01 06/08/20 04:01 Labs: Abnormal Lab Results - Last 24 Hours (Table) 06/01/20 06/01/20 06/02/20 Range/Units 17:08 20:01 06:32 WBC (3.8-10.6) k/uL RBC (3.80-5.40) m/uL Hct (34.0-46.0) % RDW (11.5-15.5) % Plt Count (150-450) k/uL Lymphocytes # (1.0-4.8) k/uL APTT (22.0-30.0) sec Sodium (137-145) mmol/L Chloride (98-107) mmol/L Carbon Dioxide (22-30) mmol/L BUN (7-17) mg/dL Creatinine (0.52-1.04) mg/dL Glucose (74-99) mg/dL POC Glucose (mg/dL) 351 H 318 H 315 H (75-99) mg/dL AST (14-36) U/L ALT (4-34) U/L Alkaline Phosphatase (38-126) U/L Total Protein (6.3-8.2) g/dL Albumin (3.5-5.0) g/dL 06/02/20 06/02/20 06/02/20 Range/Units 07:23 08:42 08:42 WBC 1.9 L (3.8-10.6) k/uL RBC 3.74 L (3.80-5.40) m/uL Hct 33.7 L (34.0-46.0) % RDW 18.0 H (11.5-15.5) % Plt Count 32 L (150-450) k/uL Lymphocytes # 0.2 L (1.0-4.8) k/uL APTT (22.0-30.0) sec Sodium 127 L (137-145) mmol/L Chloride 87 L (98-107) mmol/L Carbon Dioxide 35 H (22-30) mmol/L BUN 35 H (7-17) mg/dL Creatinine 0.49 L (0.52-1.04) mg/dL Glucose 317 H (74-99) mg/dL POC Glucose (mg/dL) 333 H (75-99) mg/dL AST 70 H (14-36) U/L ALT 175 H (4-34) U/L Alkaline Phosphatase 229 H (38-126) U/L Total Protein 5.0 L (6.3-8.2) g/dL Albumin 2.6 L (3.5-5.0) g/dL 06/02/20 06/02/20 Range/Units 08:42 11:56 WBC (3.8-10.6) k/uL RBC (3.80-5.40) m/uL Hct (34.0-46.0) % RDW (11.5-15.5) % Plt Count (150-450) k/uL Lymphocytes # (1.0-4.8) k/uL APTT 20.1 L (22.0-30.0) sec Sodium (137-145) mmol/L Chloride (98-107) mmol/L Carbon Dioxide (22-30) mmol/L BUN (7-17) mg/dL Creatinine (0.52-1.04) mg/dL Glucose (74-99) mg/dL POC Glucose (mg/dL) 331 H (75-99) mg/dL AST (14-36) U/L ALT (4-34) U/L Alkaline Phosphatase (38-126) U/L Total Protein (6.3-8.2) g/dL Albumin (3.5-5.0) g/dL Assessment and Plan Assessment: ASSESSMENT Acute hypoxic respiratory failure secondary to Covid pneumonia Bilateral Covid 19 pneumonia Leukopenia and thrombocytopenia Elevated inflammatory markers Type 2 diabetes mellitus Hypertension Hyperlipidemia Hyponatremia BMI of 47 PLAN: Patient continues to be on BiPAP 16/6 , 100 % FiO2 and saturating high 80s to low 90s. Continue with Solu-Medrol, breathing treatments, vitamin C, zinc supplements, vitamin D supplements. She has poor p.o. intake she has been started on TPN. In view of ongoing hyponatremia, nephrology has been consulted, making changes in her TPN recommendations . Hematology on board and following for thrombocytopenia. No evidence of active bleeding and Hb is stable. Emperically started on Zosyn by Pulmonary today. Overall prognosis is guarded. Will adjust the dose of insulin depending upon her blood sugars. Further rec ommendations to follow depending on the progress of the patient.
[2020-06-03] MEDS: guaiFENesin SYRUP 100MG/5ML 200 MG/10 ML CUP PO PRN ×3 (00:19→23:48)
[2020-06-03] MEDS: LORazepam 2 MG/ML INJ IV PRN ×3 (00:20→20:36)
[2020-06-03] MEDS: NAPHAZOLINE-PHENIRA 0.025-0.3% DROPS 15 ML BTL BOTH EYES SCH ×5 (01:20→23:38)
[2020-06-03] MEDS: [UNRECOGNIZED DRUG - REMARK] IV SCH ×21 (05:38→20:03)
[2020-06-03] MEDS ORDERED: INSULIN DETEMIR (LEVEMIR) 100 UNIT/ML SYR SQ SCH ×3 (07:00→21:00)
[2020-06-03] MEDS: metFORMIN 500 MG TAB PO SCH (07:08)
[2020-06-03] MEDS: GLIMEPIRIDE 4 MG TAB PO SCH (07:08)
[2020-06-03] MEDS: methylPREDNISolone SOD SUCCI 40 MG/ML 1 ML VIAL IV SCH ×4 (07:08→23:47)
[2020-06-03] MEDS: LEVOTHYROXINE 75 MCG TAB PO SCH (07:08)
[2020-06-03] MEDS: PANTOPRAZOLE 40 MG TABLET PO SCH (07:08)
[2020-06-03] MEDS: INSULIN ASPART (NovoLOG) 100 UNIT/ML VIAL SQ SCH ×6 (07:08→17:22)
[2020-06-03 07:10] LABS: Glucose,Whole Blood 340 mg/dL (75-99)
[2020-06-03] MEDS: ESCITALOPRAM 20 MG TAB PO SCH (09:29)
[2020-06-03] MEDS: ASCORBIC ACID 500 MG TAB PO SCH (09:29)
[2020-06-03] MEDS: CYANOCOBALAMIN 500 MCG TAB PO SCH (09:29)
[2020-06-03] MEDS: GABAPENTIN 300 MG CAP PO SCH ×4 (09:30→23:38)
[2020-06-03] MEDS: ZINC SULFATE 220 MG CAP PO SCH (09:30)
[2020-06-03] MEDS: allopurinoL 100 MG TAB PO SCH (09:30)
[2020-06-03] MEDS: SENNOSIDES-DOCUSATE SODIUM 1 EACH TAB PO SCH (09:30)
[2020-06-03] MEDS: DEMECLOCYCLINE 150 MG TAB PO SCH ×2 (09:30→23:37)
[2020-06-03] MEDS: ATORVASTATIN 40 MG TAB PO SCH (09:30)
[2020-06-03] MEDS: CHOLECALCIFEROL 25 MCG (1000 IU) TABLET PO SCH (09:30)
[2020-06-03] MEDS: lisinopriL 10 MG TAB PO SCH ×2 (09:30→11:26)
[2020-06-03] MEDS: FERROUS SULFATE 325 MG TAB PO SCH (09:30)
[2020-06-03] MEDS: PIPERACILLIN-TAZOBACTAM 3.375 GM in SODIUM CHLORIDE 0.9% 100 ML IVPB SCH ×3 (09:31→23:48)
[2020-06-03] MEDS: MAG HYDROX/AL HYDROX/SIMETH 30 ML CUP PO SCH ×4 (09:31→23:48)
[2020-06-03] MEDS: FAT EMULSION 20% 250 ML in EMPTY BAG 1 BAG IV SCH (09:31)
[2020-06-03] MEDS: INSULIN DETEMIR (LEVEMIR) 100 UNIT/ML SYR SQ SCH (09:47)
[2020-06-03 11:10] LABS: African American GFR (CKD) >90 (>60 ml/min/1.73 sqM); Anion Gap 3 mmol/L; Blood Urea Nitrogen 34 mg/dL (7-17); Calcium 8.3 mg/dL (8.4-10.2); Carbon Dioxide 32 mmol/L (22-30); Chloride 91 mmol/L (98-107); Glucose 292 mg/dL (74-99); Non-African American GFR(CKD) >90 (>60 ml/min/1.73 sqM); Phosphorus 3.1 mg/dL (2.5-4.5); Potassium 4.5 mmol/L (3.5-5.1); Sodium 126 mmol/L (137-145)
[2020-06-03] MEDS ORDERED: ACETAMINOPHEN IV (For NPO) 1,000 MG in EMPTY BAG 1 BAG IVPB PRN (11:18)
--- NOTE | 2020-06-03 11:18 | P.PN ---
Subjective Progress Note Date: 06/03/20 [id number] female admitted with acute hypoxic respiratory failure secondary to covid- 19 pneumonia, hypertension, diabetes mellitus, obesity and multiple other medical issues. Oxygen requirements worsened, requiring BiPAP. Chest x-ray reporting bilateral interstitial and patchy airspace opacities remain ,mild cardiomegaly. Denies chest pain, palpitations, reports chest soreness from nonproductive cough. Received a dose of Actemra, maintained on Remdesevir, IV steroids , antibiotics and multivitamin supplements. Afebrile, LDH and C- reactive protein trending down. 05/07/2020 Maintained on Remdesevir/covid regimine. Continues to require BiPAP 100% to maintain O2 sats in the high 80s to 90s. Complains of anxiety regarding mask. Deep breaths trigger cough. Afebrile. Labs pending. Denies chest pain, palpitations. 05/08/2020 sitting up at side of bed, continues to require 100% BiPAP. Ma intained on Covid regimen including Remdesevir. T-max 99.1. Occasional nonproductive cough. Denies chest pain, 05/09/20 unable to tolerate BiPAP decreased to 90% with O2 sats decreased to 84%, currently back up on 100% BiPAP, maintaining O2 sats in the 90s on 100s. T-max 99.1, labs pending. Anxiety controlled. Maintained on Covid regimen, completed 5 doses of Remdesevir. Labs pending. 05/10/2020 maintaining O2 sats in the low 90s on 95% BiPAP. Continues on IV steroids, vitamin C, vitamin D, zinc. Afebrile. Reports less coughing. Denies chest pain, palpitations. 05/13/2020 patient feeling better, reports she has " turned the corner". Maintaining O2 sats in the 90s on BiPAP 70%. Minimal nonproductive cough. Denies chest pain, palpitations. Afebrile, Received Lasix yesterday, potassium 3.4.,creatinine 0.69. 05/14/2020 continues feeling better, maintaining O2 sats in the 90s on BiPAP 70%. Occasional nonproductive cough. Mild pedal edema. Denies chest pain, palpitations. 05/15/2020 maintaining O2 sats in the low 90s on 70% BiPAP. Received Lasix yesterday, less pedal edema, renal function stable. Breathing easier. Blood sugars controlled. 05/16/2020 maintaining O2 sats in the low 90s on nonrebreather and high flow airvo. Afebrile, sodium trending down, 123, creatinine 1.8. Continues to feel better and reporting less shortness of breath. 05/17/2020 80% BiPAP, maintaining O2 sats in the 90s. Reports last night she tolerated 15 minutes on 15 L high flow nasal cannula plus nonrebreather mask .Nonproductive cough. Less tired, reports more energy. Blood sugars controlled. Denies chest pain, palpitations. Afebrile. 05/20/2020 maintained on BiPAP 90%, maintaining O2 sats in the high 80s to low 90s. Hemoglobin 11.7, Platelets decreased to 30, currently off of Lovenox .Afebrile, WBC 2.9. Chest x-ray pending. 05/21/2020 continues on BiPAP 90% maintaining O2 sats in the high 80s. Reports that well, feels good. Afebrile. Yesterday's x-ray reported persistent low lung volumes, cardiomegaly, bilateral multifocal opacity is consistent with Covid 19 infectionno significant change. Doppler reported Bilateral lower extremities negative for DVT. Diuresing well on Lasix IV push with 24-hour I&O reflecting a negative fluid balance. BUN 25, creatinine 0.7. Hit antibodies pending. 05/22/2020 maintaining O2 sats of 87 to low 90s on 90% BiPAP. Diuresing well on Lasix IV push with 24-hour I&O reflecting a negative fluid balance. BUN 27/creatinine 0.73. Hemoglobin 13.5, platelets 23-anticoagulation remains on hold. Hematology consult in place, recommendations pending. Reports sleeping well with no shortness of breath. Afebrile, normal WBC. 05/23/2020 remains on same BiPAP settings of 90% maintaining O2 sats of 90. in October she was referred to hematology/Dr. Carrion further workup regarding pancytopenia. Bone marrow was completed and was told it was fine and that she had iron deficient anemia and needed to proceed with iron transfusions. Reports she did not have a chance to start the transfusions prior to being hospitalized with Covid. Platelets currently 19 without evidence of bleeding, no petechiae .evaluated by hematology yesterday with recommendations noted and appreciated. Received transfusion of cryoprecipitate with fibrinogen up to 158. 05/24/2020 continues on BiPAP 90% to maintain O2 sats in the high 80s to low 90s. Chest x-ray pending. Telemetry sinus rhythm. hypertensive this morning, hydrochlorothiazide added to med regimen. Labs pending. Good diet intake .Hyperglycemic, blood sugars ranging from 160s to 220. 05/27/2020 maintained on 100% BiPAP, with O2 sats of low 90s. Chest x-ray reporting increasing bilateral airspace disease, hypoventilatory changes. D- dimer 0.65. CTA ordered. Hemoglobin 12.6, platelets 19. Sodium 127, on fluid restrictions. BUN 51, creatinine 0.77. T bili and LFTs remain elevated. C- reactive protein 0.8 05/28/2020 continues on BiPAP 100% maintaining marginal O2 sats. Chest CTA reported suboptimal study without significant central pulmonary embolism, cannot entirely exclude smaller segmental/subsegmental PE, worsening bilateral multi focal/confluent groundglass opacity. T bili 1.7, LFTs elevated, minimal change. Abdominal ultrasound pending. Platelets increased to 22. Sodium 126. BUN 44, creatinine 0.7. Blood sugars controlled. 05/29/2020 maintained on 100% BiPAP, O2 sats remain marginal, in the high 80s. Complains of fatigue. Labs pending. 05/31/2019 BiPAP 100%, maintaining O2 sats in the 80s. Reports anxiety/panic attack during the night, relieved with Ativan. Bicarb 36. Maintained on Declomycin,Sodium 126, platelets 26. BUN 42, creatinine 0.68. T bili, LFTs trending down. Albumin 2.7. Diet intake has been around 25% but this morning and did not eat anything. PICC line placed yesterday for TPN. 06/01/2019 BiPAP 100%, maintaining marginal O2 sats. Feels less short of breath. Required Ativan last night and her mild anxiety. Reports cough is better. Afebrile, WBC 2, platelets 33. Sodium 127. BUN 30, creatinine 0.52. T bili within normal limits, LFTs continue trending down. Denies chest pain, palpitations. 06/03/2020 yesterday placed on empiric Zosyn related to minimal improvement. Continues on BiPAP 100%, reports increased coughing. Unable to come off BiPAP mask, desats quickly; unable to take oral medications. Continues on TPN .Sugars uncontrolled in the 300s. Labs pending, yesterday platelets 32, sodium 127. Borderline hypotension. Discussed CODE STATUS with patient. Patient wants to remain a full code including intubation, at this time. Objective - Vital Signs Vital signs: Vital Signs Temp 97.0 F L 06/03/20 04:00 Pulse 82 06/03/20 04:00 Resp 22 06/03/20 04:00 BP 98/52 06/03/20 04:00 Pulse Ox 86 L 06/03/20 04:00 Intake & Output 06/02/20 06/03/20 06/03/20 18:59 06:59 18:59 Intake Total 120 Output Total 550 800 Balance -430 -800 Weight 131 kg Intake: Oral 120 Output: Urine 550 800 Other: Voiding Method Indwelling Catheter Indwelling Catheter - Exam PHYSICAL EXAM: VITAL SIGNS: [As above] GENERAL: Alert and oriented 3,Sitting up in bed wearing BiPAP, weaker. HEENT: Conjunctivae normal. eyes normal. CARDIOVASCULAR: S1, S2 regular.No murmur RESPIRATION: Diminished bases with bibasilar crackles ABDOMEN: Soft, nontender,nondistended.+BS, No guarding, no masses palpable. LEGS: Trace edema, no cyanosis, no clubbing. No calf pain. NERVOUS SYSTEM: Cranial N 2-12 grossly normal.No focal deficits. Skin: Ecchymosis bilateral arms ,Warm and dry, no rash - Labs CBC & Chem 7: 06/02/20 08:42 06/03/20 10:35 Labs: Abnormal Lab Results - Last 24 Hours (Table) 06/02/20 06/02/20 06/02/20 Range/Units 08:42 08:42 08:42 WBC 1.9 L (3.8-10.6) k/uL RBC 3.74 L (3.80-5.40) m/uL Hct 33.7 L (34.0-46.0) % RDW 18.0 H (11.5-15.5) % Plt Count 32 L (150-450) k/uL Lymphocytes # 0.2 L (1.0-4.8) k/uL APTT 20.1 L (22.0-30.0) sec Sodium 127 L (137-145) mmol/L Chloride 87 L (98-107) mmol/L Carbon Dioxide 35 H (22-30) mmol/L BUN 35 H (7-17) mg/dL Creatinine 0.49 L (0.52-1.04) mg/dL Glucose 317 H (74-99) mg/dL POC Glucose (mg/dL) (75-99) mg/dL AST 70 H (14-36) U/L ALT 175 H (4-34) U/L Alkaline Phosphatase 229 H (38-126) U/L Total Protein 5.0 L (6.3-8.2) g/dL Albumin 2.6 L (3.5-5.0) g/dL Procalcitonin (0.02-0.09) ng/mL 06/02/20 06/02/20 06/02/20 Range/Units 08:42 11:56 17:05 WBC (3.8-10.6) k/uL RBC (3.80-5.40) m/uL Hct (34.0-46.0) % RDW (11.5-15.5) % Plt Count (150-450) k/uL Lymphocytes # (1.0-4.8) k/uL APTT (22.0-30.0) sec Sodium (137-145) mmol/L Chloride (98-107) mmol/L Carbon Dioxide (22-30) mmol/L BUN (7-17) mg/dL Creatinine (0.52-1.04) mg/dL Glucose (74-99) mg/dL POC Glucose (mg/dL) 331 H 325 H (75-99) mg/dL AST (14-36) U/L ALT (4-34) U/L Alkaline Phosphatase (38-126) U/L Total Protein (6.3-8.2) g/dL Albumin (3.5-5.0) g/dL Procalcitonin 0.13 H (0.02-0.09) ng/mL 06/02/20 06/03/20 Range/Units 19:47 07:06 WBC (3.8-10.6) k/uL RBC (3.80-5.40) m/uL Hct (34.0-46.0) % RDW (11.5-15.5) % Plt Count (150-450) k/uL Lymphocytes # (1.0-4.8) k/uL APTT (22.0-30.0) sec Sodium (137-145) mmol/L Chloride (98-107) mmol/L Carbon Dioxide (22-30) mmol/L BUN (7-17) mg/dL Creatinine (0.52-1.04) mg/dL Glucose (74-99) mg/dL POC Glucose (mg/dL) 292 H 340 H (75-99) mg/dL AST (14-36) U/L ALT (4-34) U/L Alkaline Phosphatase (38-126) U/L Total Protein (6.3-8.2) g/dL Albumin (3.5-5.0) g/dL Procalcitonin (0.02-0.09) ng/mL Assessment and Plan Assessment: Sepsis, present on admission secondary to Acute Covid-19 pneumonia, status post convalescent plasma, received tocilizumab, completed Remdesevir. Acute hypoxic respiratory failure secondary to the above,BiPAP dependent. Hyponatremia, hypovolemic Acute anxiety secondary to the above and BiPAP mask, improved leukopenia, lymphopenia and thrombocytopenia secondary to above, hematology following. Low grade DIC as per hematology, status post cryoprecipitate Viral hepatitis, LFTs elevated secondary to Covid Hit antibodies negative Diabetes mellitus type 2 Hypertension Hyperlipidemia Hypothyroidism Morbid obesity, BMI 47 Plan: Continue on current medication regimen, monitoring and symptomatic treatment. Labs pending. TPN. Levemir dose further adjusted with close monitoring of Accu-Cheks . Continues on empiric Zosyn, Declomycin,COVID cocktail.Anticoagulation remains on hold related to low platelet count. Prognosis guarded given multiple complex medical issues. The impression and plan of care has been dictated as directed. : I performed a history and examination of this patient, discussed the same with the dictator. I agree with the dictator's note ,documented as a scribe. Any additional findings or plans will be noted.
[2020-06-03 11:56] LABS: Glucose,Whole Blood 287 mg/dL (75-99)
[2020-06-03] MEDS ORDERED: FUROSEMIDE 10 MG/ML 2 ML VIAL IV STA (12:11)
--- NOTE | 2020-06-03 12:11 | P.PN ---
Subjective Patient is seen in follow-up for hyponatremia. Sodium level CXXVI today. Blood sugars 290. Oral intake poor. Currently on BiPAP. Nonoliguric. Vital signs are stable. General: The patient appeared well nourished and normally developed. HEENT: On BiPAP. LUNGS: Breath sounds decreased. HEART: Rate and Rhythm are regular. ABDOMEN: Soft, nontender. EXTREMITITES: Trace edema. Objective - Vital Signs Vital signs: Vital Signs Temp 97.0 F L 06/03/20 04:00 Pulse 97 06/03/20 08:00 Resp 24 06/03/20 08:00 BP 109/58 06/03/20 08:00 Pulse Ox 90 L 06/03/20 08:00 Intake & Output 06/02/20 06/03/20 06/03/20 18:59 06:59 18:59 Intake Total 120 0 Output Total 550 800 Balance -430 -800 0 Weight 131 kg Intake: Oral 120 0 Output: Urine 550 800 Other: Voiding Method Indwelling Catheter Indwelling Catheter Indwelling Catheter - Labs CBC & Chem 7: 06/02/20 08:42 06/03/20 10:35 Labs: Abnormal Lab Results - Last 24 Hours (Table) 06/02/20 06/02/20 06/02/20 Range/Units 08:42 17:05 19:47 Sodium (137-145) mmol/L Chloride (98-107) mmol/L Carbon Dioxide (22-30) mmol/L BUN (7-17) mg/dL Creatinine (0.52-1.04) mg/dL Glucose (74-99) mg/dL POC Glucose (mg/dL) 325 H 292 H (75-99) mg/dL Calcium (8.4-10.2) mg/dL Procalcitonin 0.13 H (0.02-0.09) ng/mL 06/03/20 06/03/20 06/03/20 Range/Units 07:06 10:35 11:46 Sodium 126 L (137-145) mmol/L Chloride 91 L (98-107) mmol/L Carbon Dioxide 32 H (22-30) mmol/L BUN 34 H (7-17) mg/dL Creatinine 0.45 L (0.52-1.04) mg/dL Glucose 292 H (74-99) mg/dL POC Glucose (mg/dL) 340 H 287 H (75-99) mg/dL Calcium 8.3 L (8.4-10.2) mg/dL Procalcitonin (0.02-0.09) ng/mL Assessment and Plan Plan: Assessment: 1. Hyponatremia. Partially due to hyperglycemia. Corrected sodium near 131. 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 TSH a little low. 2. COVID-19 pneumonia. 3. Diabetes mellitus. Plan: Hep-Lock IV fluids. Maintain TPN. 1500 mL fluid restriction. Lasix 20 mg IV once today. Repeat electrolytes in the morning.
[2020-06-03] MEDS: PANTOPRAZOLE 40 MG/10 ML VIAL IVP SCH ×2 (12:47→23:38)
--- NOTE | 2020-06-03 14:04 | P.PN ---
Subjective Progress Note Date: 06/03/20 Principal diagnosis: Sepsis, Respiratory failure, DIC CBC is not resulted yet today and patient together, remains on bipap. sitting up on computer Objective - Vital Signs Vital signs: Vital Signs Temp 97.0 F L 06/03/20 04:00 Pulse 97 06/03/20 12:00 Resp 22 06/03/20 12:00 BP 118/57 06/03/20 12:00 Pulse Ox 88 L 06/03/20 12:00 Intake & Output 06/02/20 06/03/20 06/03/20 18:59 06:59 18:59 Intake Total 120 0 Output Total 550 800 Balance -430 -800 0 Weight 131 kg 131 kg Intake: Oral 120 0 Output: Urine 550 800 Other: Voiding Method Indwelling Catheter Indwelling Catheter Indwelling Catheter - Exam - Constitutional General appearance: mild distress, morbidly obese BIpap - EENT Eyes: anicteric sclerae, EOMI ENT: hearing grossly normal - Respiratory Respiratory: bilateral: diminished - Cardiovascular Heart sounds: normal: S1, S2 leg Peripheral Edema: bilateral: Trace - Neurologic Neurologic: CNII-XII intact - Musculoskeletal Musculoskeletal: strength equal bilaterally - Psychiatric Psychiatric: A&O x's 3, appropriate affect, intact judgment & insight - Labs CBC & Chem 7: 06/03/20 15:12 06/03/20 10:35 Labs: Abnormal Lab Results - Last 24 Hours (Table) 06/02/20 06/02/20 06/02/20 Range/Units 08:42 17:05 19:47 Sodium (137-145) mmol/L Chloride (98-107) mmol/L Carbon Dioxide (22-30) mmol/L BUN (7-17) mg/dL Creatinine (0.52-1.04) mg/dL Glucose (74-99) mg/dL POC Glucose (mg/dL) 325 H 292 H (75-99) mg/dL Calcium (8.4-10.2) mg/dL Procalcitonin 0.13 H (0.02-0.09) ng/mL 06/03/20 06/03/20 06/03/20 Range/Units 07:06 10:35 11:46 Sodium 126 L (137-145) mmol/L Chloride 91 L (98-107) mmol/L Carbon Dioxide 32 H (22-30) mmol/L BUN 34 H (7-17) mg/dL Creatinine 0.45 L (0.52-1.04) mg/dL Glucose 292 H (74-99) mg/dL POC Glucose (mg/dL) 340 H 287 H (75-99) mg/dL Calcium 8.3 L (8.4-10.2) mg/dL Procalcitonin (0.02-0.09) ng/mL Assessment and Plan Plan: - Imaging and Cardiology Chest x-ray: report reviewed Assessment and Plan Thrombocytopenia: ITP versus DIC (disseminated intravascular coagulation) Mild DIC - Improved Continue to monitor Coags CBC pending today Increased LFTs: - Likely secondary to medication and Illness: - Monitor daily - Ultrasound reviewed, no obstruction noted Coronavirus infection - Per Pulmonology and ID - Best Supportive Care Acute Hypoxia Respiratory Failure - Continue on Bipap - NOt improved Current Visit: Yes Status: Acute Code(s): R09.02 - HYPOXEMIA SNOMED Code(s): 822726461 Plan: Await CBC If signs of bleeding transfuse platelets and recheck fibrinogen for option of cryo (if s/s bleeding)
[2020-06-03 15:35] LABS: Anisocytosis Slight; Basophils % (A) 0 %; Eosinophils % (A) 2 %; HCT 36.1 % (34.0-46.0); HGB 12.5 gm/dL (11.4-16.0); Lymphocytes # (A) 0.2 k/uL (1.0-4.8); Lymphocytes % (A) 8 %; MCH 30.9 pg (25.0-35.0); MCHC 34.6 g/dL (31.0-37.0); MCV 89.2 fL (80.0-100.0); Mean Platelet Volume 9.3; Monocytes # (A) 0.2 k/uL (0-1.0); Monocytes % (A) 7 %; Neutrophils # (A) 1.9 k/uL (1.3-7.7); Neutrophils % (A) 82 %; RBC 4.05 m/uL (3.80-5.40); RDW 18.1 % (11.5-15.5); WBC 2.3 k/uL (3.8-10.6)
[2020-06-03 15:38] LABS: Platelet Count 42 k/uL (150-450)
[2020-06-03 15:57] LABS: Prothrombin Time 11.1 sec (9.0-12.0)
--- NOTE | 2020-06-03 16:22 | P.PN ---
Subjective Progress Note Date: 06/03/20 Principal diagnosis: Acute hypoxemic respiratory failure. Patient was reevaluated today on 05/09/2020, remains on BiPAP, she is on 100%, O2 sats is 94%. Surprisingly, the patient seems to be doing well in spite of her significant O2 requirement and BiPAP. Patient received REM, she also received convalescent plasma and ACTEMRA. And so far does not seem to be making that significant turnaround and significant clinical improvement. CBC and basic metabolic profile are normal except for WBC count is 2.0 today. Patient was reevaluated today on 05/10/2020, still requiring significant amount of FiO2, she remains on BiPAP at 90% FiO2, she is on IPAP of 10 and EPAP of 5, and O2 saturation remains marginal. Clinically however the patient feels better breathing easier, and have d-dimer is not that significantly elevated but it is nonetheless abnormal. Hence I recommended a CT angiogram of the chest to be done today. Renal profile is normal. CBC continues to show leukopenia with WBC count of 2.0. Electrolytes are normal. Patient was reevaluated today on 05/11/2020, patient is basically about the same. Remains on BiPAP. Her FiO2 is still at 90%, and her O2 saturation is in the low 90s. Patient is on IPAP of 10 and EPAP of 5, seems to be very comfortable. CT angiogram of the chest yesterday showed bilateral interstitial infiltrates, no evidence of thromboembolic disease/pulmonary embolism. WBC count is 2.2 hemoglobin is 11.6. A left lites are normal renal profile is normal clinically the patient is fairly comfortable, however she is still requiring significant high FiO2. Reevaluated today on 05/12/2020, patient is feeling much better today, breathing a lot easier, she is now on 80% FiO2 remains on BiPAP with IPAP of 10 and EPAP of 5. But her FiO2 was cut down to 80%, and I will cut it down further to 70% and her O2 saturation seems to be significantly improved. Patient feels that she felt much better after the Lasix was given yesterday. I will recommend another dose of Lasix to be given today. Her CT angiogram of the chest yesterday questioned mild interstitial edema. However I felt it was all related to her underlying Covid 19 pneumonitis. Nonetheless Lasix was given, and clinically the patient felt better. Labs today were all reviewed she had WBC count of 2.3 hemoglobin 12.4 lites are normal renal profile remains normal. Progress note dated 05/13/2020. Currently, the patient remains on BiPAP, at 70%. She's feeling better today. She feels less short of breath. Her BiPAP settings are IPAP 10, and EPAP 5. I did tell the patient to move around when she is lying in bed. She should lie down on her right side, left side, supine, and if possible, try to prone herself. Current laboratory data includes a white count of 2, hemoglobin 11.7, hematocrit 35.2, platelet count 94,000. Sodium is 136, potassium 3.4, chlorides 101, CO2 33, anion gap 2, BUN [address], [address] angiogram on May 10 showed no evidence of pulmonary embolism, but did show moderately severe pulmonary interstitial edema/infiltrates. Progress note dated 05/14/2020. The patient remains on BiPAP at 70%. She feels much improved. Her IPAP of 10 and EPAP is fine. She's feeling much less short of breath. I did tell her to move around in bed, right side down, left side down, supine, and even on her stomach if she can. No new labs today to look at. No recent chest x-rays to evaluate either. Medications are appropriate at this time. CT angiogram from May 10 is reviewed. Progress note dated 05/15/2020. The patient remains on BiPAP, settings of IPAP 10, and EPAP of 5. She is on 70%. Her saturations are right around 90% or so. Despite that, the patient states that she is feeling much better. She has been moving around in bed. His been laying on her right side, left side, supine, even on her stomach at times. No new labs today other than a sodium of 137, potassium 4, chloride 98, CO2 34, anion gap 5, BUN 19, creatinine 0.67. Progress note dated 05/18/2020. The patient remains on BiPAP, with settings of IPAP 10, EPAP 5, and 100%. The patient really has not seemed to get any better recently. Chest x-ray has been ordered. The patient complains of shortness of breath with any activity. Currently, the patient's temperature is 98.3, heart rate 73, respiratory rate 18-20 breaths per minute, blood pressure 103/60. There are no new labs today. Her most recent chest x-ray does show some worsening. Microbiology is on negative. 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 Remains on steroids, she is now on methylprednisolone at 40 mg IV push every 6 hours, patient is not eating well, I am recommending TPN via PICC line. Labs including electrolytes, renal profile, CBC were all reviewed and noted. C- reactive protein on this patient was not done today, but the last one was 0.8. Sodium remains low at 126. Renal profile is normal. Bicarb is 36 Patient was reevaluated today on 05/31/2120, patient is basically about the same. Patient is not getting any better and she is not getting any worse. Remains on high FiO2, remains on BiPAP with IPAP of 12 EPAP of 6, remains on methylprednisolone, she is receiving TPN via PICC line, and overall not much of a change on this patient over the last 2 weeks. Patient was reevaluated today on 06/01/2020, remains on high flow oxygen, she is on BiPAP, not much of a change, IPAP is 12 EPAP of 6, FiO2 remains on the percent, O2 saturation remains marginal in the high 80s and no 90s. Overall the patient is not making any progression not for the better and not for the worse. She is about the same over the last 2 weeks. Continues to have elevated blood sugar of 328. Her sodium remains at 126. BUN is 36 creatinine is 0.46. He evaluated by nephrology for her hypernatremia which is felt to be related to high blood sugar and dilutional as well as related to low blood pressure. And low sodium intake. Possible hypothyroidism, and that being evaluated Reevaluated today on 06/02/2020, patient remains about the same, remains on BiPAP, IPAP of 16 and EPAP of 6, FiO2 is 100%, O2 saturation remains marginal at best. Patient is using the BiPAP all the time, on TPN for nutritional support. WBC count is 1.9 hemoglobin is 11.4. Sodium remains low at 127. Otherwise her basic metabolic profile is normal renal profile is normal blood sugar is running a bit high at 317. Last chest x-ray showed no change this was done a few days ago. CT angiogram done on the showed no evidence of thromboembolic disease. Progress note dated 06/03/2020. This is a 59-year-old female, his been in the hospital now for 30 days. She remains on BiPAP at 16/8, and 100%. She's getting TPN at 75 mL an hour, and lipids as well. Currently, I believe she is getting very depressed and she's been in the hospital for a longer time, and his pre-much stayed around the same. She is in room 368, with her at her side in the next bed. White count 2.3, hemoglobin 12.5, hematocrit 36.1, platelet count 42,000. PT INR were normal. Sodium 126, potassium 4.5, chlorides 91, CO2 32, anion gap 3, BUN 34, creatinine 0.45. No recent chest x-ray done. Objective - Vital Signs Vital signs: Vital Signs Temp 97.0 F L 06/03/20 04:00 Pulse 90 06/03/20 15:57 Resp 22 06/03/20 12:00 BP 114/56 06/03/20 15:57 Pulse Ox 86 L 06/03/20 15:57 Intake & Output 06/02/20 06/03/20 06/03/20 18:59 06:59 18:59 Intake Total 120 0 Output Total 550 800 Balance -430 -800 0 Weight 131 kg 131 kg Intake: Oral 120 0 Output: Urine 550 800 Other: Voiding Method Indwelling Catheter Indwelling Catheter Indwelling Catheter - Exam No acute distress, oriented 3. Patient currently on BiPAP. Laying in bed. Saturations 86%. The patient is quite obese. Patient is on 100%. HEENT examination is grossly unremarkable. BiPAP mask in place. Neck supple. Full range of motion. No adenopathy thyromegaly or neck vein distention. Cardiovascular examination reveals regular rhythm rate. S1-S2 normal. No S3 or S4. No discernible murmur noted. Heart sounds are distant. Heart rate 90 bpm. Lungs reveal bilateral coarse rhonchi and crackles. Breath sounds equal bilaterally. There are no wheezes. Lung examination is unchanged. Abdomen soft bowel sounds are heard. No masses or tenderness. Extremities are intact. No cyanosis clubbing or edema. Skin is without rash or lesion. Neurologic examination is brief but nonfocal. - Labs CBC & Chem 7: 06/03/20 15:12 06/03/20 10:35 Labs: Abnormal Lab Results - Last 24 Hours (Table) 06/02/20 06/02/20 06/02/20 Range/Units 08:42 17:05 19:47 WBC (3.8-10.6) k/uL RDW (11.5-15.5) % Plt Count (150-450) k/uL Lymphocytes # (1.0-4.8) k/uL Sodium (137-145) mmol/L Chloride (98-107) mmol/L Carbon Dioxide (22-30) mmol/L BUN (7-17) mg/dL Creatinine (0.52-1.04) mg/dL Glucose (74-99) mg/dL POC Glucose (mg/dL) 325 H 292 H (75-99) mg/dL Calcium (8.4-10.2) mg/dL Procalcitonin 0.13 H (0.02-0.09) ng/mL 06/03/20 06/03/20 06/03/20 Range/Units 07:06 10:35 11:46 WBC (3.8-10.6) k/uL RDW (11.5-15.5) % Plt Count (150-450) k/uL Lymphocytes # (1.0-4.8) k/uL Sodium 126 L (137-145) mmol/L Chloride 91 L (98-107) mmol/L Carbon Dioxide 32 H (22-30) mmol/L BUN 34 H (7-17) mg/dL Creatinine 0.45 L (0.52-1.04) mg/dL Glucose 292 H (74-99) mg/dL POC Glucose (mg/dL) 340 H 287 H (75-99) mg/dL Calcium 8.3 L (8.4-10.2) mg/dL Procalcitonin (0.02-0.09) ng/mL 06/03/20 Range/Units 15:12 WBC 2.3 L (3.8-10.6) k/uL RDW 18.1 H (11.5-15.5) % Plt Count 42 L (150-450) k/uL Lymphocytes # 0.2 L (1.0-4.8) k/uL Sodium (137-145) mmol/L Chloride (98-107) mmol/L Carbon Dioxide (22-30) mmol/L BUN (7-17) mg/dL Creatinine (0.52-1.04) mg/dL Glucose (74-99) mg/dL POC Glucose (mg/dL) (75-99) mg/dL Calcium (8.4-10.2) mg/dL Procalcitonin (0.02-0.09) ng/mL Assessment and Plan Assessment: Acute COVID 19 pneumonia, with hypoxemic respiratory failure. Obesity. Diabetes mellitus, type II. History of hypertension. Hyperlipidemia by history. Hypothyroidism. Leukopenia, and thrombocytopenia, likely secondary to sepsis. Hyponatremia. Increased inflammatory markers, secondary to coronavirus infection. Plan: Plan dated 05/13/2020. The patient remains on BiPAP. We'll continue to titrate the FiO2 down. The patient continues on the appropriate vitamins according vitamin C, vitamin D3, and zinc. In addition, the patient did receive convalescent plasma, REM, and TOCI. The patient also continues on Lovenox, and Solu-Medrol. We will continue to follow. Prognosis is guarded. We'll continue to make recommendations were appropriate. The patient appears to be in good spirits which is a positive thing. Plan dated 05/14/2020. Currently, the patient remains on BiPAP. She is on 70%. Her saturations are in the mid to low 90s. She is feeling better. She has been moving around in bed as instructed. She denies any fever or chills. She denies any cough or phlegm production. She denies any chest pain. There are no new labs or x-rays to review. We will continue to follow. Her medications are reviewed. Everything seems appropriate. She seems be moving in a positive direction. Plan dated 05/15/2020. The patient remains on BiPAP with similar settings as yesterday. She clinically feels better. She feels less short of breath. She has been moving around in bed as instructed. We will continue to follow the patient. No additional recommendations are made. Overall prognosis is guarded. She is on appropriate medications. Plan dated 05/18/2020. The patient remains on BiPAP with IPAP of 10, EPAP of 5, and 100%. Yesterday, she was down to 70%. The patient appears not to be improving. A chest x-ray done yesterday shows worsening infiltrates. The patient gets Lasix 40 mg IV push today. We will have to watch her very carefully, she may need to come down to the intensive care unit, and things continue to worsen. Additional recommendations and suggestions are forthcoming. Prognosis is guarded. We will continue to follow this patient and make recommendations where appropriate. Plan dated 06/03/2020. The patient remains on BiPAP, with settings of 16/8 and 100%. The patient has received all appropriate therapies including REM, convalescent plasma, and TOCI. The patient will continue on Solu-Medrol. The patient was also placed on Zosyn empirically. Prognosis is definitely poor/guarded. Continue TPN. Obviously, patient is not ready yet for discharge. We will continue to follow make recommendations where appropriate. Time with Patient: Less than 30
[2020-06-03 17:00] LABS: Glucose,Whole Blood 256 mg/dL (75-99)
[2020-06-03 20:09] LABS: Glucose,Whole Blood 318 mg/dL (75-99)
[2020-06-03 23:37] LABS: Glucose,Whole Blood 389 mg/dL (75-99)
[2020-06-03] MEDS: BACLOFEN 10 MG TAB PO SCH (23:37)
[2020-06-04] MEDS: methylPREDNISolone SOD SUCCI 40 MG/ML 1 ML VIAL IV SCH ×4 (06:19→23:13)
[2020-06-04] MEDS: INSULIN ASPART (NovoLOG) 100 UNIT/ML VIAL SQ SCH ×8 (06:26→23:13)
[2020-06-04] MEDS: INSULIN DETEMIR (LEVEMIR) 100 UNIT/ML SYR SQ SCH ×2 (06:30→20:44)
[2020-06-04 08:17] LABS: Glucose,Whole Blood 422 mg/dL (75-99)
[2020-06-04] MEDS: PIPERACILLIN-TAZOBACTAM 3.375 GM in SODIUM CHLORIDE 0.9% 100 ML IVPB SCH ×3 (09:16→23:12)
[2020-06-04] MEDS: LORazepam 2 MG/ML INJ IV PRN ×2 (09:16→14:03)
[2020-06-04] MEDS: PANTOPRAZOLE 40 MG/10 ML VIAL IVP SCH ×2 (09:16→20:24)
[2020-06-04] MEDS: LEVOTHYROXINE 75 MCG TAB PO SCH (09:17)
[2020-06-04] MEDS: allopurinoL 100 MG TAB PO SCH (09:17)
[2020-06-04] MEDS: ASCORBIC ACID 500 MG TAB PO SCH (09:17)
[2020-06-04] MEDS: CHOLECALCIFEROL 25 MCG (1000 IU) TABLET PO SCH (09:17)
[2020-06-04] MEDS: ATORVASTATIN 40 MG TAB PO SCH (09:17)
[2020-06-04] MEDS: CYANOCOBALAMIN 500 MCG TAB PO SCH (09:17)
[2020-06-04] MEDS: DEMECLOCYCLINE 150 MG TAB PO SCH ×2 (09:18→20:44)
[2020-06-04] MEDS: ESCITALOPRAM 20 MG TAB PO SCH (09:18)
[2020-06-04] MEDS: FERROUS SULFATE 325 MG TAB PO SCH (09:18)
[2020-06-04] MEDS: MAG HYDROX/AL HYDROX/SIMETH 30 ML CUP PO SCH ×4 (09:18→20:24)
[2020-06-04] MEDS: SENNOSIDES-DOCUSATE SODIUM 1 EACH TAB PO SCH (09:18)
[2020-06-04] MEDS: GABAPENTIN 300 MG CAP PO SCH ×4 (09:18→20:24)
[2020-06-04] MEDS: ZINC SULFATE 220 MG CAP PO SCH (09:19)
[2020-06-04] MEDS: NAPHAZOLINE-PHENIRA 0.025-0.3% DROPS 15 ML BTL BOTH EYES SCH ×4 (09:22→20:44)
[2020-06-04 10:21] LABS: Anisocytosis Slight; Basophils % (A) 0 %; Eosinophils % (A) 2 %; HCT 31.1 % (34.0-46.0); HGB 10.8 gm/dL (11.4-16.0); Lymphocytes # (A) 0.2 k/uL (1.0-4.8); Lymphocytes % (A) 13 %; MCH 30.9 pg (25.0-35.0); MCHC 34.8 g/dL (31.0-37.0); MCV 88.7 fL (80.0-100.0); Monocytes # (A) 0.1 k/uL (0-1.0); Monocytes % (A) 5 %; Neutrophils # (A) 1.2 k/uL (1.3-7.7); Neutrophils % (A) 80 %; RDW 18.1 % (11.5-15.5); WBC 1.5 k/uL (3.8-10.6)
[2020-06-04 10:40] LABS: Platelet Count 38 k/uL (150-450)
[2020-06-04 10:48] LABS: African American GFR (CKD) >90 (>60 ml/min/1.73 sqM); Anion Gap 3 mmol/L; Blood Urea Nitrogen 33 mg/dL (7-17); Carbon Dioxide 32 mmol/L (22-30); Chloride 93 mmol/L (98-107); Glucose 324 mg/dL (74-99); Magnesium 1.9 mg/dL (1.6-2.3); Non-African American GFR(CKD) >90 (>60 ml/min/1.73 sqM); Phosphorus 3.1 mg/dL (2.5-4.5); Potassium 4.1 mmol/L (3.5-5.1); Sodium 128 mmol/L (137-145)
--- NOTE | 2020-06-04 11:06 | P.PN ---
Subjective Patient is seen in follow-up for hyponatremia. Sodium level 128 today. Blood sugar over 300. Oral intake poor. Currently on BiPAP. Nonoliguric. Vital signs are stable. General: The patient appeared well nourished and normally developed. HEENT: On BiPAP. LUNGS: Breath sounds decreased. HEART: Rate and Rhythm are regular. ABDOMEN: Soft, nontender. EXTREMITITES: Trace edema. Objective - Vital Signs Vital signs: Vital Signs Temp 97.0 F L 06/04/20 00:00 Pulse 87 06/04/20 08:30 Resp 24 06/04/20 08:30 BP 136/88 06/04/20 08:30 Pulse Ox 87 L 06/04/20 08:30 Intake & Output 06/03/20 06/04/20 06/04/20 18:59 06:59 18:59 Intake Total 968 Output Total 2800 2100 Balance -183 Weight 131 kg 132.5 kg Intake: Intake, IV Titration 968 Amount Calcium Gluconate 0.5 gm 600 Sodium Chloride 4Meq/ml Vial 40 meq Potassium Chloride 10 meq Sodium Phosphate 7.5 mmol In Amino Acid 5%-D15w 1,000 ml @ 75 mls/hr IV .BY DURATION YESSI Rx#: [id number] Fat Emulsion 20% 250 ml 168 In Empty Bag 1 bag @ 21 mls/hr IV MoWeFr YESSI Rx#: [id number] Piperacillin-Tazobactam 3 200 .375 gm In Sodium Chloride 0.9% 100 ml @ 25 mls/hr IVPB Q8HR YESSI Rx# :[id number] Oral 0 Output: Urine 2800 2100 Uretheral ([place]) 1400 1400 Other: Voiding Method Indwelling Catheter Indwelling Catheter Indwelling Catheter - Labs CBC & Chem 7: 06/04/20 09:26 06/04/20 09:26 Labs: Abnormal Lab Results - Last 24 Hours (Table) 06/03/20 06/03/20 06/03/20 Range/Units 10:35 11:46 15:12 WBC 2.3 L (3.8-10.6) k/uL RBC (3.80-5.40) m/uL Hgb (11.4-16.0) gm/dL Hct (34.0-46.0) % RDW 18.1 H (11.5-15.5) % Plt Count 42 L (150-450) k/uL Neutrophils # (1.3-7.7) k/uL Lymphocytes # 0.2 L (1.0-4.8) k/uL Sodium 126 L (137-145) mmol/L Chloride 91 L (98-107) mmol/L Carbon Dioxide 32 H (22-30) mmol/L BUN 34 H (7-17) mg/dL Creatinine 0.45 L (0.52-1.04) mg/dL Glucose 292 H (74-99) mg/dL POC Glucose (mg/dL) 287 H (75-99) mg/dL Calcium 8.3 L (8.4-10.2) mg/dL 06/03/20 06/03/20 06/03/20 Range/Units 16:46 20:08 23:35 WBC (3.8-10.6) k/uL RBC (3.80-5.40) m/uL Hgb (11.4-16.0) gm/dL Hct (34.0-46.0) % RDW (11.5-15.5) % Plt Count (150-450) k/uL Neutrophils # (1.3-7.7) k/uL Lymphocytes # (1.0-4.8) k/uL Sodium (137-145) mmol/L Chloride (98-107) mmol/L Carbon Dioxide (22-30) mmol/L BUN (7-17) mg/dL Creatinine (0.52-1.04) mg/dL Glucose (74-99) mg/dL POC Glucose (mg/dL) 256 H 318 H 389 H (75-99) mg/dL Calcium (8.4-10.2) mg/dL 06/04/20 06/04/20 06/04/20 Range/Units 05:59 09:26 09:26 WBC 1.5 L (3.8-10.6) k/uL RBC 3.50 L (3.80-5.40) m/uL Hgb 10.8 L (11.4-16.0) gm/dL Hct 31.1 L (34.0-46.0) % RDW 18.1 H (11.5-15.5) % Plt Count 38 L (150-450) k/uL Neutrophils # 1.2 L (1.3-7.7) k/uL Lymphocytes # 0.2 L (1.0-4.8) k/uL Sodium 128 L (137-145) mmol/L Chloride 93 L (98-107) mmol/L Carbon Dioxide 32 H (22-30) mmol/L BUN 33 H (7-17) mg/dL Creatinine 0.40 L (0.52-1.04) mg/dL Glucose 324 H (74-99) mg/dL POC Glucose (mg/dL) 422 H (75-99) mg/dL Calcium 8.0 L (8.4-10.2) mg/dL Assessment and Plan Plan: Assessment: 1. Hyponatremia. Partially due to hyperglycemia. Corrected sodium near 134. 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 TSH a little low. 2. COVID-19 pneumonia. 3. Diabetes mellitus. Plan: Remains off IV fluids. Maintain TPN. 1500 mL fluid restriction. Status post IV Lasix June 03. Repeat electrolytes in the morning. Tight blood sugar control.
[2020-06-04] MEDS: [UNRECOGNIZED DRUG - REMARK] IV SCH ×7 (11:20)
[2020-06-04 12:20] LABS: Glucose,Whole Blood 421 mg/dL (75-99)
--- NOTE | 2020-06-04 13:04 | P.PN ---
Subjective Progress Note Date: 06/04/20 Principal diagnosis: Acute hypoxemic respiratory failure. Patient was reevaluated today on 05/09/2020, remains on BiPAP, she is on 100%, O2 sats is 94%. Surprisingly, the patient seems to be doing well in spite of her significant O2 requirement and BiPAP. Patient received REM, she also received convalescent plasma and ACTEMRA. And so far does not seem to be making that significant turnaround and significant clinical improvement. CBC and basic metabolic profile are normal except for WBC count is 2.0 today. Patient was reevaluated today on 05/10/2020, still requiring significant amount of FiO2, she remains on BiPAP at 90% FiO2, she is on IPAP of 10 and EPAP of 5, and O2 saturation remains marginal. Clinically however the patient feels better breathing easier, and have d-dimer is not that significantly elevated but it is nonetheless abnormal. Hence I recommended a CT angiogram of the chest to be done today. Renal profile is normal. CBC continues to show leukopenia with WBC count of 2.0. Electrolytes are normal. Patient was reevaluated today on 05/11/2020, patient is basically about the same. Remains on BiPAP. Her FiO2 is still at 90%, and her O2 saturation is in the low 90s. Patient is on IPAP of 10 and EPAP of 5, seems to be very comfortable. CT angiogram of the chest yesterday showed bilateral interstitial infiltrates, no evidence of thromboembolic disease/pulmonary embolism. WBC count is 2.2 hemoglobin is 11.6. A left lites are normal renal profile is normal clinically the patient is fairly comfortable, however she is still requiring significant high FiO2. Reevaluated today on 05/12/2020, patient is feeling much better today, breathing a lot easier, she is now on 80% FiO2 remains on BiPAP with IPAP of 10 and EPAP of 5. But her FiO2 was cut down to 80%, and I will cut it down further to 70% and her O2 saturation seems to be significantly improved. Patient feels that she felt much better after the Lasix was given yesterday. I will recommend another dose of Lasix to be given today. Her CT angiogram of the chest yesterday questioned mild interstitial edema. However I felt it was all related to her underlying Covid 19 pneumonitis. Nonetheless Lasix was given, and clinically the patient felt better. Labs today were all reviewed she had WBC count of 2.3 hemoglobin 12.4 lites are normal renal profile remains normal. Progress note dated 05/13/2020. Currently, the patient remains on BiPAP, at 70%. She's feeling better today. She feels less short of breath. Her BiPAP settings are IPAP 10, and EPAP 5. I did tell the patient to move around when she is lying in bed. She should lie down on her right side, left side, supine, and if possible, try to prone herself. Current laboratory data includes a white count of 2, hemoglobin 11.7, hematocrit 35.2, platelet count 94,000. Sodium is 136, potassium 3.4, chlorides 101, CO2 33, anion gap 2, BUN [address], [address] angiogram on May 10 showed no evidence of pulmonary embolism, but did show moderately severe pulmonary interstitial edema/infiltrates. Progress note dated 05/14/2020. The patient remains on BiPAP at 70%. She feels much improved. Her IPAP of 10 and EPAP is fine. She's feeling much less short of breath. I did tell her to move around in bed, right side down, left side down, supine, and even on her stomach if she can. No new labs today to look at. No recent chest x-rays to evaluate either. Medications are appropriate at this time. CT angiogram from May 10 is reviewed. Progress note dated 05/15/2020. The patient remains on BiPAP, settings of IPAP 10, and EPAP of 5. She is on 70%. Her saturations are right around 90% or so. Despite that, the patient states that she is feeling much better. She has been moving around in bed. His been laying on her right side, left side, supine, even on her stomach at times. No new labs today other than a sodium of 137, potassium 4, chloride 98, CO2 34, anion gap 5, BUN 19, creatinine 0.67. Progress note dated 05/18/2020. The patient remains on BiPAP, with settings of IPAP 10, EPAP 5, and 100%. The patient really has not seemed to get any better recently. Chest x-ray has been ordered. The patient complains of shortness of breath with any activity. Currently, the patient's temperature is 98.3, heart rate 73, respiratory rate 18-20 breaths per minute, blood pressure 103/60. There are no new labs today. Her most recent chest x-ray does show some worsening. Microbiology is on negative. The patient will get some Lasix today.Patient was reevaluated today on 05/30/2020, no major change in the last 24 hours, remains on BiPAP, remains with marginal O2 saturation, remains on relatively high FiO2 100%, she is also on IPAP of 12 EPAP of 6, no exchange clerk the last 24 hours or even in the last 1 week. Remains on steroids, she is now on methylprednisolone at 40 mg IV push every 6 hours, patient is not eating well, I am recommending TPN via PICC line. Labs including electrolytes, renal profile, CBC were all reviewed and noted. C- reactive protein on this patient was not done today, but the last one was 0.8. Sodium remains low at 126. Renal profile is normal. Bicarb is 36 Patient was reevaluated today on 05/31/2120, patient is basically about the same. Patient is not getting any better and she is not getting any worse. Remains on high FiO2, remains on BiPAP with IPAP of 12 EPAP of 6, remains on methylprednisolone, she is receiving TPN via PICC line, and overall not much of a change on this patient over the last 2 weeks. Patient was reevaluated today on 06/01/2020, remains on high flow oxygen, she is on BiPAP, not much of a change, IPAP is 12 EPAP of 6, FiO2 remains on the percent, O2 saturation remains marginal in the high 80s and no 90s. Overall the patient is not making any progression not for the better and not for the worse. She is about the same over the last 2 weeks. Continues to have elevated blood sugar of 328. Her sodium remains at 126. BUN is 36 creatinine is 0.46. He evaluated by nephrology for her hypernatremia which is felt to be related to high blood sugar and dilutional as well as related to low blood pressure. And low sodium intake. Possible hypothyroidism, and that being evaluated Reevaluated today on 06/02/2020, patient remains about the same, remains on BiPAP, IPAP of 16 and EPAP of 6, FiO2 is 100%, O2 saturation remains marginal at best. Patient is using the BiPAP all the time, on TPN for nutritional support. WBC count is 1.9 hemoglobin is 11.4. Sodium remains low at 127. Otherwise her basic metabolic profile is normal renal profile is normal blood sugar is running a bit high at 317. Last chest x-ray showed no change this was done a few days ago. CT angiogram done on the showed no evidence of thromboembolic disease. Progress note dated 06/03/2020. This is a 59-year-old female, his been in the hospital now for 30 days. She remains on BiPAP at 16/8, and 100%. She's getting TPN at 75 mL an hour, and lipids as well. Currently, I believe she is getting very depressed and she's been in the hospital for a longer time, and his pre-much stayed around the same. She is in room 368, with her at her side in the next bed. White count 2.3, hemoglobin 12.5, hematocrit 36.1, platelet count 42,000. PT INR were normal. Sodium 126, potassium 4.5, chlorides 91, CO2 32, anion gap 3, BUN 34, creatinine 0.45. No recent chest x-ray done. Progress note dated 06/04/2020. 59-year-old female, is now been in the hospital for 31 days. She remains on BiPAP, with settings of IPAP 16, EPAP 8, and 100%. On those settings, her saturations are 90%. The patient is getting TPN at 75 mL an hour. She is in room 368, with her in the next bed by her side. He also has coronavirus pneumonia. Lab data from today reveals an ongoing pancytopenia. White count 1.5, hemoglobin 10.8, hematocrit 31.1, and platelet count 38,000. Sodium 128, potassium 4.1, chlorides 93, CO2 32, anion gap 3, BUN 33, and creatinine 0.4. The patient's last chest x-ray was done May 29. Microbiologic data have been negative. I did speak to the nurse about the patient today. CT angiogram done on May 27, showed no evidence of thromboembolic disease. Objective - Vital Signs Vital signs: Vital Signs Temp 97.0 F L 06/04/20 00:00 Pulse 87 06/04/20 11:29 Resp 22 06/04/20 11:29 BP 129/59 06/04/20 11:29 Pulse Ox 87 L 06/04/20 11:29 Intake & Output 06/03/20 06/04/20 06/04/20 18:59 06:59 18:59 Intake Total 968 1033.5 Output Total 2800 2100 Balance -1832 -1066.5 Weight 131 kg 132.5 kg Intake: Intake, IV Titration 968 1033.5 Amount Calcium Gluconate 0.5 gm 600 Sodium Chloride 4Meq/ml Vial 40 meq Potassium Chloride 10 meq Sodium Phosphate 7.5 mmol In Amino Acid 5%-D15w 1,000 ml @ 75 mls/hr IV .BY D[facility] Rx#: [id number] Fat Emulsion 20% 250 ml 168 In Empty Bag 1 bag @ 21 mls/hr IV MoWeFr YESSI Rx#: [id number] Mvi, Adult No.4 with Vit 1033.5 K 10 ml Trace (Conc-1Ml/ Dose) 1 ml Calcium Gluconate 0.5 gm Sodium Chloride 4Meq/ml Vial 40 meq Potassium Chloride 10 meq Sodium Phosphate 7.5 mmol In Amino Acid 5%- D15w 1,000 ml @ 75 mls/hr IV .BY DURATION [facility] Rx#: [id number] Piperacillin-Tazobactam 3 200 .375 gm In Sodium Chloride 0.9% 100 ml @ 25 mls/hr IVPB Q8HR YESSI Rx# :[id number] Oral 0 Output: Urine 2800 2100 Uretheral ([place]) 1400 1400 Other: Voiding Method Indwelling Catheter Indwelling Catheter Indwelling Catheter - Exam No acute distress, oriented 3. Patient currently on BiPAP. Laying in bed. Saturations 90%. The patient is quite obese. Patient is on 100%. HEENT examination is grossly unremarkable. BiPAP mask in place. Neck supple. Full range of motion. No adenopathy thyromegaly or neck vein distention. Cardiovascular examination reveals regular rhythm rate. S1-S2 normal. No S3 or S4. No discernible murmur noted. Heart sounds are distant. Heart rate 87 bpm. Lungs reveal bilateral coarse rhonchi and crackles. Breath sounds equal bilaterally. There are no wheezes. Lung examination is unchanged. Abdomen soft bowel sounds are heard. No masses or tenderness. Extremities are intact. No cyanosis clubbing or edema. Skin is without rash or lesion. Neurologic examination is brief but nonfocal. - Labs CBC & Chem 7: 06/04/20 09:26 06/04/20 09:26 Labs: Abnormal Lab Results - Last 24 Hours (Table) 06/03/20 06/03/20 06/03/20 Range/Units 15:12 16:46 20:08 WBC 2.3 L (3.8-10.6) k/uL RBC (3.80-5.40) m/uL Hgb (11.4-16.0) gm/dL Hct (34.0-46.0) % RDW 18.1 H (11.5-15.5) % Plt Count 42 L (150-450) k/uL Neutrophils # (1.3-7.7) k/uL Lymphocytes # 0.2 L (1.0-4.8) k/uL Sodium (137-145) mmol/L Chloride (98-107) mmol/L Carbon Dioxide (22-30) mmol/L BUN (7-17) mg/dL Creatinine (0.52-1.04) mg/dL Glucose (74-99) mg/dL POC Glucose (mg/dL) 256 H 318 H (75-99) mg/dL Calcium (8.4-10.2) mg/dL 06/03/20 06/04/20 06/04/20 Range/Units 23:35 05:59 09:26 WBC (3.8-10.6) k/uL RBC (3.80-5.40) m/uL Hgb (11.4-16.0) gm/dL Hct (34.0-46.0) % RDW (11.5-15.5) % Plt Count (150-450) k/uL Neutrophils # (1.3-7.7) k/uL Lymphocytes # (1.0-4.8) k/uL Sodium 128 L (137-145) mmol/L Chloride 93 L (98-107) mmol/L Carbon Dioxide 32 H (22-30) mmol/L BUN 33 H (7-17) mg/dL Creatinine 0.40 L (0.52-1.04) mg/dL Glucose 324 H (74-99) mg/dL POC Glucose (mg/dL) 389 H 422 H (75-99) mg/dL Calcium 8.0 L (8.4-10.2) mg/dL 06/04/20 06/04/20 Range/Units 09:26 12:13 WBC 1.5 L (3.8-10.6) k/uL RBC 3.50 L (3.80-5.40) m/uL Hgb 10.8 L (11.4-16.0) gm/dL Hct 31.1 L (34.0-46.0) % RDW 18.1 H (11.5-15.5) % Plt Count 38 L (150-450) k/uL Neutrophils # 1.2 L (1.3-7.7) k/uL Lymphocytes # 0.2 L (1.0-4.8) k/uL Sodium (137-145) mmol/L Chloride (98-107) mmol/L Carbon Dioxide (22-30) mmol/L BUN (7-17) mg/dL Creatinine (0.52-1.04) mg/dL Glucose (74-99) mg/dL POC Glucose (mg/dL) 421 H (75-99) mg/dL Calcium (8.4-10.2) mg/dL Assessment and Plan Assessment: Acute COVID 19 pneumonia, with hypoxemic respiratory failure. Obesity. Diabetes mellitus, type II. History of hypertension. Hyperlipidemia by history. Hypothyroidism. Pancytopenia, likely related to coronavirus infection. Hyponatremia. Increased inflammatory markers, secondary to coronavirus infection. Plan: Plan dated 05/13/2020. The patient remains on BiPAP. We'll continue to titrate the FiO2 down. The patient continues on the appropriate vitamins according vitamin C, vitamin D3, and zinc. In addition, the patient did receive convalescent plasma, REM, and TOCI. The patient also continues on Lovenox, and Solu-Medrol. We will continue to follow. Prognosis is guarded. We'll continue to make recommendations were appropriate. The patient appears to be in good spirits which is a positive thing. Plan dated 05/14/2020. Currently, the patient remains on BiPAP. She is on 70%. Her saturations are in the mid to low 90s. She is feeling better. She has been moving around in bed as instructed. She denies any fever or chills. She denies any cough or phlegm production. She denies any chest pain. There are no new labs or x-rays to review. We will continue to follow. Her medications are reviewed. Everything seems appropriate. She seems be moving in a positive direction. Plan dated 05/15/2020. The patient remains on BiPAP with similar settings as yesterday. She clinically feels better. She feels less short of breath. She has been moving around in bed as instructed. We will continue to follow the patient. No additional recommendations are made. Overall prognosis is guarded. She is on appropriate medications. Plan dated 05/18/2020. The patient remains on BiPAP with IPAP of 10, EPAP of 5, and 100%. Yesterday, she was down to 70%. The patient appears not to be improving. A chest x-ray done yesterday shows worsening infiltrates. The patient gets Lasix 40 mg IV push today. We will have to watch her very carefully, she may need to come down to the intensive care unit, and things continue to worsen. Additional recommendations and suggestions are forthcoming. Prognosis is guarded. We will continue to follow this patient and make recommendations where appropriate. Plan dated 06/03/2020. The patient remains on BiPAP, with settings of 16/8 and 100%. The patient has received all appropriate therapies including REM, convalescent plasma, and TOCI. The patient will continue on Solu-Medrol. The patient was also placed on Zosyn empirically. Prognosis is definitely poor/guarded. Continue TPN. Obviously, patient is not ready yet for discharge. We will continue to follow make recommendations where appropriate. Plan dated 06/04/2020. The patient remains on BiPAP, with same settings as yesterday, and at 100%. The patient has received all appropriate therapies including REM, convalescent plasma, Lovenox, steroids, vitamins,TOCI and Zosyn empirically. The patient continues on TPN at 75 mL an hour. Overall prognosis remains very guarded. She is currently in room 368, and her is in the same room, with COVID pneumonia. We will continue to follow make recommendations where appropriate. Time with Patient: Less than 30
[2020-06-04] MEDS ORDERED: propofoL 100 ML IV ONE (14:22)
--- NOTE | 2020-06-04 14:35 | P.PN ---
Subjective Progress Note Date: 06/04/20 [id number] female admitted with acute hypoxic respiratory failure secondary to covid- 19 pneumonia, hypertension, diabetes mellitus, obesity and multiple other medical issues. Oxygen requirements worsened, requiring BiPAP. Chest x-ray reporting bilateral interstitial and patchy airspace opacities remain ,mild cardiomegaly. Denies chest pain, palpitations, reports chest soreness from nonproductive cough. Received a dose of Actemra, maintained on Remdesevir, IV steroids , antibiotics and multivitamin supplements. Afebrile, LDH and C- reactive protein trending down. 05/07/2020 Maintained on Remdesevir/covid regimine. Continues to require BiPAP 100% to maintain O2 sats in the high 80s to 90s. Complains of anxiety regarding mask. Deep breaths trigger cough. Afebrile. Labs pending. Denies chest pain, palpitations. 05/08/2020 sitting up at side of bed, continues to require 100% BiPAP. Ma intained on Covid regimen including Remdesevir. T-max 99.1. Occasional nonproductive cough. Denies chest pain, 05/09/20 unable to tolerate BiPAP decreased to 90% with O2 sats decreased to 84%, currently back up on 100% BiPAP, maintaining O2 sats in the 90s on 100s. T-max 99.1, labs pending. Anxiety controlled. Maintained on Covid regimen, completed 5 doses of Remdesevir. Labs pending. 05/10/2020 maintaining O2 sats in the low 90s on 95% BiPAP. Continues on IV steroids, vitamin C, vitamin D, zinc. Afebrile. Reports less coughing. Denies chest pain, palpitations. 05/13/2020 patient feeling better, reports she has " turned the corner". Maintaining O2 sats in the 90s on BiPAP 70%. Minimal nonproductive cough. Denies chest pain, palpitations. Afebrile, Received Lasix yesterday, potassium 3.4.,creatinine 0.69. 05/14/2020 continues feeling better, maintaining O2 sats in the 90s on BiPAP 70%. Occasional nonproductive cough. Mild pedal edema. Denies chest pain, palpitations. 05/15/2020 maintaining O2 sats in the low 90s on 70% BiPAP. Received Lasix yesterday, less pedal edema, renal function stable. Breathing easier. Blood sugars controlled. 05/16/2020 maintaining O2 sats in the low 90s on nonrebreather and high flow airvo. Afebrile, sodium trending down, 123, creatinine 1.8. Continues to feel better and reporting less shortness of breath. 05/17/2020 80% BiPAP, maintaining O2 sats in the 90s. Reports last night she tolerated 15 minutes on 15 L high flow nasal cannula plus nonrebreather mask .Nonproductive cough. Less tired, reports more energy. Blood sugars controlled. Denies chest pain, palpitations. Afebrile. 05/20/2020 maintained on BiPAP 90%, maintaining O2 sats in the high 80s to low 90s. Hemoglobin 11.7, Platelets decreased to 30, currently off of Lovenox .Afebrile, WBC 2.9. Chest x-ray pending. 05/21/2020 continues on BiPAP 90% maintaining O2 sats in the high 80s. Reports that well, feels good. Afebrile. Yesterday's x-ray reported persistent low lung volumes, cardiomegaly, bilateral multifocal opacity is consistent with Covid 19 infectionno significant change. Doppler reported Bilateral lower extremities negative for DVT. Diuresing well on Lasix IV push with 24-hour I&O reflecting a negative fluid balance. BUN 25, creatinine 0.7. Hit antibodies pending. 05/22/2020 maintaining O2 sats of 87 to low 90s on 90% BiPAP. Diuresing well on Lasix IV push with 24-hour I&O reflecting a negative fluid balance. BUN 27/creatinine 0.73. Hemoglobin 13.5, platelets 23-anticoagulation remains on hold. Hematology consult in place, recommendations pending. Reports sleeping well with no shortness of breath. Afebrile, normal WBC. 05/23/2020 remains on same BiPAP settings of 90% maintaining O2 sats of 90. in October she was referred to hematology/Dr. Carrion further workup regarding pancytopenia. Bone marrow was completed and was told it was fine and that she had iron deficient anemia and needed to proceed with iron transfusions. Reports she did not have a chance to start the transfusions prior to being hospitalized with Covid. Platelets currently 19 without evidence of bleeding, no petechiae .evaluated by hematology yesterday with recommendations noted and appreciated. Received transfusion of cryoprecipitate with fibrinogen up to 158. 05/24/2020 continues on BiPAP 90% to maintain O2 sats in the high 80s to low 90s. Chest x-ray pending. Telemetry sinus rhythm. hypertensive this morning, hydrochlorothiazide added to med regimen. Labs pending. Good diet intake .Hyperglycemic, blood sugars ranging from 160s to 220. 05/27/2020 maintained on 100% BiPAP, with O2 sats of low 90s. Chest x-ray reporting increasing bilateral airspace disease, hypoventilatory changes. D- dimer 0.65. CTA ordered. Hemoglobin 12.6, platelets 19. Sodium 127, on fluid restrictions. BUN 51, creatinine 0.77. T bili and LFTs remain elevated. C- reactive protein 0.8 05/28/2020 continues on BiPAP 100% maintaining marginal O2 sats. Chest CTA reported suboptimal study without significant central pulmonary embolism, cannot entirely exclude smaller segmental/subsegmental PE, worsening bilateral multi focal/confluent groundglass opacity. T bili 1.7, LFTs elevated, minimal change. Abdominal ultrasound pending. Platelets increased to 22. Sodium 126. BUN 44, creatinine 0.7. Blood sugars controlled. 05/29/2020 maintained on 100% BiPAP, O2 sats remain marginal, in the high 80s. Complains of fatigue. Labs pending. 05/31/2019 BiPAP 100%, maintaining O2 sats in the 80s. Reports anxiety/panic attack during the night, relieved with Ativan. Bicarb 36. Maintained on Declomycin,Sodium 126, platelets 26. BUN 42, creatinine 0.68. T bili, LFTs trending down. Albumin 2.7. Diet intake has been around 25% but this morning and did not eat anything. PICC line placed yesterday for TPN. 06/01/2019 BiPAP 100%, maintaining marginal O2 sats. Feels less short of breath. Required Ativan last night and her mild anxiety. Reports cough is better. Afebrile, WBC 2, platelets 33. Sodium 127. BUN 30, creatinine 0.52. T bili within normal limits, LFTs continue trending down. Denies chest pain, palpitations. 06/03/2020 yesterday placed on empiric Zosyn related to minimal improvement. Continues on BiPAP 100%, reports increased coughing. Unable to come off BiPAP mask, desats quickly; unable to take oral medications. Continues on TPN .Sugars uncontrolled in the 300s. Labs pending, yesterday platelets 32, sodium 127. Borderline hypotension. Discussed CODE STATUS with patient. Patient wants to remain a full code including intubation, at this time. 06/04/2020 continues on 100% BiPAP maintaining O2 sats of 87%. Not able to tolerate mask removal. Patient is tired, weak, coughing. WBC 1.5, hemoglobin 10.8, platelets 38. Sodium 128, CO2 32 BUN 33, creatinine 0.4. Maintained on TPN, blood sugars elevated. Objective - Vital Signs Vital signs: Vital Signs Temp 97.0 F L 06/04/20 00:00 Pulse 87 06/04/20 11:29 Resp 22 06/04/20 11:29 BP 129/59 06/04/20 11:29 Pulse Ox 87 L 06/04/20 11:29 Intake & Output 06/03/20 06/04/20 06/04/20 18:59 06:59 18:59 Intake Total 968 1033.5 Output Total 2800 2100 Balance -1832 -1066.5 Weight 131 kg 132.5 kg Intake: Intake, IV Titration 968 1033.5 Amount Calcium Gluconate 0.5 gm 600 Sodium Chloride 4Meq/ml Vial 40 meq Potassium Chloride 10 meq Sodium Phosphate 7.5 mmol In Amino Acid 5%-D15w 1,000 ml @ 75 mls/hr IV .BY DURATION [facility] Rx#: [id number] Fat Emulsion 20% 250 ml 168 In Empty Bag 1 bag @ 21 mls/hr IV MoWeFr [facility] Rx#: [id number] Mvi, Adult No.4 with Vit 1033.5 K 10 ml Trace (Conc-1Ml/ Dose) 1 ml Calcium Gluconate 0.5 gm Sodium Chloride 4Meq/ml Vial 40 meq Potassium Chloride 10 meq Sodium Phosphate 7.5 mmol In Amino Acid 5%- D15w 1,000 ml @ 75 mls/hr IV .BY DURATION [facility] Rx#: [id number] Piperacillin-Tazobactam 3 200 .375 gm In Sodium Chloride 0.9% 100 ml @ 25 mls/hr IVPB Q8HR [facility] Rx# :[id number] Oral 0 Output: Urine 2800 2100 Uretheral ([place]) 1400 1400 Other: Voiding Method Indwelling Catheter Indwelling Catheter Indwelling Catheter - Exam PHYSICAL EXAM: VITAL SIGNS: [As above] GENERAL: Alert and oriented 3,Sitting up in bed wearing BiPAP, fatigued HEENT: Conjunctivae normal. eyes normal. CARDIOVASCULAR: S1, S2 regular.No murmur RESPIRATION: Diminished bases with bibasilar crackles ABDOMEN: Soft, nontender,nondistended.+BS, No guarding, no masses palpable. LEGS: Trace edema, no cyanosis, no clubbing. No calf pain. NERVOUS SYSTEM: Cranial N 2-12 grossly normal.No focal deficits. Skin: Ecchymosis bilateral arms ,Warm and dry, no rash. - Labs CBC & Chem 7: 06/04/20 09:26 06/04/20 09:26 Labs: Abnormal Lab Results - Last 24 Hours (Table) 06/03/20 06/03/20 06/03/20 Range/Units 15:12 16:46 20:08 WBC 2.3 L (3.8-10.6) k/uL RBC (3.80-5.40) m/uL Hgb (11.4-16.0) gm/dL Hct (34.0-46.0) % RDW 18.1 H (11.5-15.5) % Plt Count 42 L (150-450) k/uL Neutrophils # (1.3-7.7) k/uL Lymphocytes # 0.2 L (1.0-4.8) k/uL Sodium (137-145) mmol/L Chloride (98-107) mmol/L Carbon Dioxide (22-30) mmol/L BUN (7-17) mg/dL Creatinine (0.52-1.04) mg/dL Glucose (74-99) mg/dL POC Glucose (mg/dL) 256 H 318 H (75-99) mg/dL Calcium (8.4-10.2) mg/dL 06/03/20 06/04/20 06/04/20 Range/Units 23:35 05:59 09:26 WBC (3.8-10.6) k/uL RBC (3.80-5.40) m/uL Hgb (11.4-16.0) gm/dL Hct (34.0-46.0) % RDW (11.5-15.5) % Plt Count (150-450) k/uL Neutrophils # (1.3-7.7) k/uL Lymphocytes # (1.0-4.8) k/uL Sodium 128 L (137-145) mmol/L Chloride 93 L (98-107) mmol/L Carbon Dioxide 32 H (22-30) mmol/L BUN 33 H (7-17) mg/dL Creatinine 0.40 L (0.52-1.04) mg/dL Glucose 324 H (74-99) mg/dL POC Glucose (mg/dL) 389 H 422 H (75-99) mg/dL Calcium 8.0 L (8.4-10.2) mg/dL 06/04/20 06/04/20 Range/Units 09:26 12:13 WBC 1.5 L (3.8-10.6) k/uL RBC 3.50 L (3.80-5.40) m/uL Hgb 10.8 L (11.4-16.0) gm/dL Hct 31.1 L (34.0-46.0) % RDW 18.1 H (11.5-15.5) % Plt Count 38 L (150-450) k/uL Neutrophils # 1.2 L (1.3-7.7) k/uL Lymphocytes # 0.2 L (1.0-4.8) k/uL Sodium (137-145) mmol/L Chloride (98-107) mmol/L Carbon Dioxide (22-30) mmol/L BUN (7-17) mg/dL Creatinine (0.52-1.04) mg/dL Glucose (74-99) mg/dL POC Glucose (mg/dL) 421 H (75-99) mg/dL Calcium (8.4-10.2) mg/dL Assessment and Plan Assessment: Sepsis, present on admission secondary to Acute Covid-19 pneumonia, status post convalescent plasma, received tocilizumab, completed Remdesevir. Acute hypoxic respiratory failure secondary to the above,BiPAP dependent. Hyponatremia, hypovolemic Acute anxiety secondary to the above and BiPAP mask, improved leukopenia, lymphopenia and thrombocytopenia secondary to above, hematology following. Low grade DIC as per hematology, status post cryoprecipitate Viral hepatitis, LFTs elevated secondary to Covid Hit antibodies negative Diabetes mellitus type 2 Hypertension Hyperlipidemia Hypothyroidism Morbid obesity, BMI 47 Plan: Continue on current medication regimen, monitoring and symptomatic treatment. Nutritional support with TPN. Levemir dose increased with close mon itoring of Accu-Cheks .Continues on empiric Zosyn, Declomycin,COVID cocktail.Anticoagulation remains on hold related to low platelet count. Patient is fatigued. Prognosis guarded given multiple complex medical issues. The impression and plan of care has been dictated as directed. : I performed a history and examination of this patient, discussed the same with the dictator. I agree with the dictator's note ,documented as a scribe. Any additional findings or plans will be noted.
[2020-06-04] MEDS ORDERED: SODIUM BICARB 8.4% 50 ML SYR (1 MEQ/ML) IV STA (14:40)
--- NOTE | 2020-06-04 14:53 | P.EN ---
A- Team Back ground: COVID 19 pneumonia with prolonged hospital stay, pancytopenia, and on BiPap at 100% Nurse called A-team due to increased work of breathing and patient asked to be intubated due to fatigue. On arrival to room O2 sat is 78-81% on BiPap respiratory rate 32. She denies shortness of breath, reports being tired, states that she does not want to and wants to be intubated. GEN: Ill appearing, maximal distress CV: S1S2 tachy without murmur, dimished pulses bilateral lower extremities Lungs: diminished breath sounds bilateral, + accessory muscle use, + conv ersational dysnea Psych; alert, clear thinking. 1. COVID -19 pneumonia with acute hypoxic respiratory failure - nurse spoke with Dr. Franklin who agrees with transfer to ICU and Intubation - CXR stat once intubated - ABG 1/2 hr after on the vent - initial setting 14/450/12/100 and patient remained with sat of 62% increased PEEP to 15 - patient given on dose of bicarb - initial CXR with right mainstem, pulled back 3 cm. 2. Pancytopenia - plt 38 3. hyponatremia - no oral intake, has been on TPN - stable but low since 05/24 Discussed with P[employer] DR[employer] Dr. Aviles updated via perfect serve updated by nursing. A total of 32 minutes of critical care time was spent with this complex patient.
[2020-06-04] MEDS ORDERED: CISATRACURIUM 2 MG/ML 5 ML VIAL IV ONE ×2 (15:13→15:21)
--- NOTE | 2020-06-04 15:19 | XR ---
EXAMINATION TYPE: XR chest 1V portable DATE OF EXAM: 06/04/2020 COMPARISON: NONE HISTORY: SOB, Follow Up FINDINGS: Endotracheal tube demonstrates its distal tip within the right mainstem bronchus and should be pulled back 4 cm. Left-sided PICC line with its distal tip at the junction of the left brachiocephalic vein and SVC. No pneumothorax. Persistent patchy perihilar and basilar infiltrates with small effusions. Stable appearance of the cardio-mediastinal structures at this time. Pleural effusion unchanged. IMPRESSION: 1. Endotracheal tube demonstrates its distal tip within the right mainstem bronchus and should be pu lled back 4 cm.
[2020-06-04] MEDS: fentaNYL (PF). 1,000 MCG in SODIUM CHLORIDE 0.9% 80 ML IV SCH (15:57)
[2020-06-04] MEDS: CISATRACURIUM 200 MG in SODIUM CHLORIDE 0.9% 180 ML IV SCH (15:58)
--- NOTE | 2020-06-04 16:16 | XR ---
EXAMINATION TYPE: XR chest 1V portable DATE OF EXAM: 06/04/2020 COMPARISON: 06/04/2020 HISTORY: SOB, Follow Up FINDINGS: Endotracheal tube is well-positioned. Remaining indwelling catheters are unchanged. Scattered infiltrates are stable. Stable appearance of the cardio-mediastinal structures at this time. Pleural effusion unchanged. IMPRESSION: 1. Scattered bilateral infiltrates persist. ET tube as noted. Clinical correlation and follow up unti l resolution is recommended.
[2020-06-04] MEDS: SODIUM CHLORIDE 0.9% 1,000 ML IV SCH ×4 (16:37→23:14)
[2020-06-04 17:02] LABS: Glucose,Whole Blood 248 mg/dL (75-99)
[2020-06-04] MEDS: NOREPINEPHRINE 8 MG in SODIUM CHLORIDE 0.9% 250 ML IV SCH (17:51)
--- NOTE | 2020-06-04 18:51 | P.PN ---
Subjective Progress Note Date: 06/04/20 (Seen this am, late entry) Principal diagnosis: Sepsis, Respiratory failure, DIC Patients respiratory status started declining Wednesday, and appears to be working harder this am. Objective - Vital Signs Vital signs: Vital Signs Temp 97.9 F 06/04/20 14:45 Pulse 51 L 06/04/20 18:00 Resp 24 06/04/20 18:00 BP 92/53 06/04/20 18:00 Pulse Ox 96 06/04/20 18:00 Intake & Output 06/03/20 06/04/20 06/04/20 18:59 06:59 18:59 Intake Total 968 1033.5 3010 Output Total 2800 2100 155 Balance -1832 -1066.5 2855 Weight 131 kg 132.5 kg Intake: IV 3000 Sodium Chloride 0.9% 1, 3000 000 ml @ 999 mls/hr IV . Q1H1M [facility] Rx#:[id number] Intake, IV Titration 968 1033.5 Amount Calcium Gluconate 0.5 gm 600 Sodium Chloride 4Meq/ml Vial 40 meq Potassium Chloride 10 meq Sodium Phosphate 7.5 mmol In Amino Acid 5%-D15w 1,000 ml @ 75 mls/hr IV .BY DURATION [facility] Rx#: [id number] Fat Emulsion 20% 250 ml 168 In Empty Bag 1 bag @ 21 mls/hr IV MoWeFr [facility] Rx#: [id number] Mvi, Adult No.4 with Vit 1033.5 K 10 ml Trace (Conc-1Ml/ Dose) 1 ml Calcium Gluconate 0.5 gm Sodium Chloride 4Meq/ml Vial 40 meq Potassium Chloride 10 meq Sodium Phosphate 7.5 mmol In Amino Acid 5%- D15w 1,000 ml @ 75 mls/hr IV .BY DURATION [facility] Rx#: [id number] Piperacillin-Tazobactam 3 200 .375 gm In Sodium Chloride 0.9% 100 ml @ 25 mls/hr IVPB Q8HR [facility] Rx# :[id number] Oral 0 Tube Feeding 10 Output: Urine 2800 2100 155 Uretheral ([place]) 1400 1400 Other: Voiding Method Indwelling Catheter Indwelling Catheter Indwelling Catheter ABP, PAP, CO, CI - Last Documented Arterial Blood Pressure 164/74 - Exam - Constitutional General appearance: mild distress, morbidly obese BIpap - EENT Eyes: anicteric sclerae, EOMI ENT: hearing grossly normal - Respiratory Respiratory: bilateral: diminished - Cardiovascular Heart sounds: normal: S1, S2 leg Peripheral Edema: bilateral: Trace - Neurologic Neurologic: CNII-XII intact - Musculoskeletal Musculoskeletal: strength equal bilaterally - Psychiatric Psychiatric: A&O x's 3, appropriate affect, intact judgment & insight - Labs CBC & Chem 7: 06/04/20 09:26 06/04/20 09:26 Labs: Abnormal Lab Results - Last 24 Hours (Table) 06/03/20 06/03/20 06/04/20 Range/Units 20:08 23:35 05:59 WBC (3.8-10.6) k/uL RBC (3.80-5.40) m/uL Hgb (11.4-16.0) gm/dL Hct (34.0-46.0) % RDW (11.5-15.5) % Plt Count (150-450) k/uL Neutrophils # (1.3-7.7) k/uL Lymphocytes # (1.0-4.8) k/uL Sodium (137-145) mmol/L Chloride (98-107) mmol/L Carbon Dioxide (22-30) mmol/L BUN (7-17) mg/dL Creatinine (0.52-1.04) mg/dL Glucose (74-99) mg/dL POC Glucose (mg/dL) 318 H 389 H 422 H (75-99) mg/dL Calcium (8.4-10.2) mg/dL 06/04/20 06/04/20 06/04/20 Range/Units 09:26 09:26 12:13 WBC 1.5 L (3.8-10.6) k/uL RBC 3.50 L (3.80-5.40) m/uL Hgb 10.8 L (11.4-16.0) gm/dL Hct 31.1 L (34.0-46.0) % RDW 18.1 H (11.5-15.5) % Plt Count 38 L (150-450) k/uL Neutrophils # 1.2 L (1.3-7.7) k/uL Lymphocytes # 0.2 L (1.0-4.8) k/uL Sodium 128 L (137-145) mmol/L Chloride 93 L (98-107) mmol/L Carbon Dioxide 32 H (22-30) mmol/L BUN 33 H (7-17) mg/dL Creatinine 0.40 L (0.52-1.04) mg/dL Glucose 324 H (74-99) mg/dL POC Glucose (mg/dL) 421 H (75-99) mg/dL Calcium 8.0 L (8.4-10.2) mg/dL 06/04/20 Range/Units 16:42 WBC (3.8-10.6) k/uL RBC (3.80-5.40) m/uL Hgb (11.4-16.0) gm/dL Hct (34.0-46.0) % RDW (11.5-15.5) % Plt Count (150-450) k/uL Neutrophils # (1.3-7.7) k/uL Lymphocytes # (1.0-4.8) k/uL Sodium (137-145) mmol/L Chloride (98-107) mmol/L Carbon Dioxide (22-30) mmol/L BUN (7-17) mg/dL Creatinine (0.52-1.04) mg/dL Glucose (74-99) mg/dL POC Glucose (mg/dL) 248 H (75-99) mg/dL Calcium (8.4-10.2) mg/dL Assessment and Plan Plan: - Imaging and Cardiology Chest x-ray: report reviewed Assessment and Plan Thrombocytopenia: ITP versus DIC (disseminated intravascular coagulation) Mild DIC - Improved Continue to monitor Coags CBC pending today Increased LFTs: - Likely secondary to medication and Illness: - Monitor daily - Ultrasound reviewed, no obstruction noted Coronavirus infection - Per Pulmonology and ID - Best Supportive Care Acute Hypoxia Respiratory Failure - Continue on Bipap - NOt improved Current Visit: Yes Status: Acute Code(s): R09.02 - HYPOXEMIA SNOMED Code(s): 882115520 Plan: CBC remains stable Continue all other care per pulm, primary teams
[2020-06-04] MEDS: CHLORHEXIDINE GLUCONATE 15 ML CUP MUCOUS MEM SCH (20:24)
[2020-06-04] MEDS: BACLOFEN 10 MG TAB PO SCH (20:25)
--- NOTE | 2020-06-04 22:56 | PCN ---
PROCEDURE NOTE PROCEDURE: Left radial arterial line placement. PREOPERATIVE DIAGNOSIS: Frequent blood draws and blood gas monitoring. POSTOPERATIVE DIAGNOSIS: Frequent blood draws and blood gas monitoring. OPERATORS: 1. Dr. Franklin. 2. Michel Lopez. Indications: Hemodynamic monitoring. A timeout was completed verifying correct patient, procedure, site, positioning, and implant(s) or special equipment if applicable. There was informed consent, universal timeout. Jarrod's test was performed to ensure adequate perfusion. The patient's left wrist was prepped and draped in sterile fashion. 1% Lidocaine was used to anesthetize the area. An 18G Arrow arterial line was introduced into the radial artery. The catheter was threaded over the guidewire and the needle was removed with appropriate pulsatile blood return. Blood loss was minimal. The catheter was then sutured in place to the skin and a sterile dressing applied by the nurse. Perfusion to the extremity distal to the point of catheter insertion was checked and found to be adequate. There was good waveform and blood pressure reading. The patient tolerated the procedure well and there were no immediate complications. MMODL / IJN: [id number] /
[2020-06-04 23:11] LABS: Glucose,Whole Blood 145 mg/dL (75-99)
[2020-06-05] MEDS ORDERED: [UNRECOGNIZED DRUG - REMARK] IV SCH ×14 (01:30)
[2020-06-05] MEDS: fentaNYL (PF). 1,000 MCG in SODIUM CHLORIDE 0.9% 80 ML IV SCH ×3 (03:37→22:29)
[2020-06-05 04:57] LABS: Anisocytosis Slight; Basophils % (A) 0 %; Eosinophils % (A) 1 %; HCT 33.7 % (34.0-46.0); HGB 11.3 gm/dL (11.4-16.0); Lymphocytes # (A) 0.3 k/uL (1.0-4.8); Lymphocytes % (A) 9 %; MCH 29.6 pg (25.0-35.0); MCHC 33.5 g/dL (31.0-37.0); MCV 88.5 fL (80.0-100.0); Mean Platelet Volume 8.9; Monocytes # (A) 0.3 k/uL (0-1.0); Monocytes % (A) 7 %; Neutrophils # (A) 3.2 k/uL (1.3-7.7); RBC 3.81 m/uL (3.80-5.40); WBC 3.9 k/uL (3.8-10.6)
[2020-06-05 05:07] LABS: ALT 212 U/L (4-34); AST 98 U/L (14-36); African American GFR (CKD) >90 (>60 ml/min/1.73 sqM); Albumin 2.3 g/dL (3.5-5.0); Alkaline Phosphatase 245 U/L (38-126); Anion Gap 3 mmol/L; Blood Urea Nitrogen 26 mg/dL (7-17); C Reactive Protein 0.7 mg/dL (<1.0); Calcium 7.9 mg/dL (8.4-10.2); Carbon Dioxide 28 mmol/L (22-30); Chloride 100 mmol/L (98-107); Creatine Kinase 34 U/L (30-135); Glucose 144 mg/dL (74-99); LDH 1412 U/L (313-618); Magnesium 1.9 mg/dL (1.6-2.3); Non-African American GFR(CKD) >90 (>60 ml/min/1.73 sqM); Phosphorus 3.4 mg/dL (2.5-4.5); Potassium 3.7 mmol/L (3.5-5.1); Sodium 131 mmol/L (137-145); Total Bilirubin 1.9 mg/dL (0.2-1.3); Total Protein 4.6 g/dL (6.3-8.2)
[2020-06-05 05:11] LABS: D-Dimer 1.39 mg/L FEU (<0.60); INR 1.1 (<1.2); Prothrombin Time 11.2 sec (9.0-12.0)
[2020-06-05 05:44] LABS: Platelet Count 72 k/uL (150-450)
[2020-06-05 06:00] LABS: ABG Base Excess 4.2 mmol/L; ABG HCO3 28 mmol/L (21-25); ABG Oxygen Saturation 97.5 % (94-97); ABG PCO2 42 mmHg (35-45); ABG PH 7.44 (7.35-7.45); ABG PO2 90 mmHg (83-108); ABG TCO2 30 mmol/L (19-24)
[2020-06-05] MEDS: LEVOTHYROXINE 75 MCG TAB PO SCH (06:12)
[2020-06-05] MEDS: INSULIN ASPART (NovoLOG) 100 UNIT/ML VIAL SQ SCH ×4 (06:12→23:41)
[2020-06-05] MEDS: methylPREDNISolone SOD SUCCI 40 MG/ML 1 ML VIAL IV SCH ×4 (06:12→23:42)
[2020-06-05] MEDS: INSULIN DETEMIR (LEVEMIR) 100 UNIT/ML SYR SQ SCH ×2 (06:14→20:18)
[2020-06-05 06:26] LABS: Glucose,Whole Blood 164 mg/dL (75-99)
[2020-06-05] MEDS ORDERED: POTASSIUM BICARBONATE/CIT AC 20 MEQ TABLET.EFF NG-TUBE SCH (07:00)
--- NOTE | 2020-06-05 07:25 | XR ---
EXAMINATION TYPE: XR chest 1V portable DATE OF EXAM: 06/05/2020 COMPARISON: NONE HISTORY: SOB, Follow Up FINDINGS: Indwelling tubes and catheters are unchanged. Patchy infiltrates throughout both lung hernandez with interval progression noted. Stable appearance of the cardio-mediastinal structures at this time. Pleural effusion unchanged. IMPRESSION: 1. Patchy infiltrates throughout both lung hernandez with interval progression noted.. Clinical correl ation and follow up until resolution is recommended.
[2020-06-05] MEDS: MAG HYDROX/AL HYDROX/SIMETH 30 ML CUP PO SCH (08:23)
[2020-06-05] MEDS: SENNOSIDES-DOCUSATE SODIUM 1 EACH TAB PO SCH (08:23)
[2020-06-05] MEDS: GABAPENTIN 300 MG CAP PO SCH ×4 (08:23→19:53)
[2020-06-05] MEDS: CHLORHEXIDINE GLUCONATE 15 ML CUP MUCOUS MEM SCH ×2 (08:23→19:53)
[2020-06-05] MEDS: ATORVASTATIN 40 MG TAB PO SCH (08:23)
[2020-06-05] MEDS: PANTOPRAZOLE 40 MG/10 ML VIAL IVP SCH ×2 (08:23→19:53)
[2020-06-05] MEDS: ASCORBIC ACID 500 MG TAB PO SCH (08:23)
[2020-06-05] MEDS: PIPERACILLIN-TAZOBACTAM 3.375 GM in SODIUM CHLORIDE 0.9% 100 ML IVPB SCH ×3 (08:24→23:42)
[2020-06-05] MEDS: FERROUS SULFATE 325 MG TAB PO SCH (08:24)
[2020-06-05] MEDS: allopurinoL 100 MG TAB PO SCH (08:24)
[2020-06-05] MEDS: CHOLECALCIFEROL 25 MCG (1000 IU) TABLET PO SCH (08:24)
[2020-06-05] MEDS: ZINC SULFATE 220 MG CAP PO SCH (08:24)
[2020-06-05] MEDS: CYANOCOBALAMIN 500 MCG TAB PO SCH (08:24)
[2020-06-05] MEDS: ESCITALOPRAM 20 MG TAB PO SCH (08:25)
[2020-06-05] MEDS: FAT EMULSION 20% 250 ML in EMPTY BAG 1 BAG IV SCH (08:25)
[2020-06-05] MEDS: SODIUM CHLORIDE 0.9% 1,000 ML IV SCH ×3 (08:26→23:42)
[2020-06-05] MEDS: NAPHAZOLINE-PHENIRA 0.025-0.3% DROPS 15 ML BTL BOTH EYES SCH ×4 (08:30→19:53)
--- NOTE | 2020-06-05 09:43 | P.PN ---
Subjective Patient is seen in follow-up for hyponatremia. Sodium level 131 today. Intubated June 04 due to worsening respiratory distress. On low-dose Levophed. Receiving IV fluids as well as tube feeding. Vital signs are stable. On low-dose Levophed. General: The patient appeared well nourished and normally developed. HEENT: Intubated. LUNGS: Breath sounds decreased. HEART: Rate and Rhythm are regular. ABDOMEN: Soft, obese. EXTREMITITES: Trace edema. Objective - Vital Signs Vital signs: Vital Signs Temp 96.3 F L 06/05/20 08:00 Pulse 50 L 06/05/20 09:15 Resp 24 06/05/20 09:15 BP 97/52 06/05/20 09:15 Pulse Ox 94 L 06/05/20 09:15 Intake & Output 06/04/20 06/05/20 06/05/20 18:59 06:59 18:59 Intake Total 3155 2186.233 496.394 Output Total 195 465 125 Balance 2960 1721.233 371.394 Weight 134.8 kg Intake: IV 3125 1375 375 Sodium Chloride 0.9% 1, 125 1375 375 000 ml @ 125 mls/hr IV . Q8H Y[facility] Rx#:[id number] Sodium Chloride 0.9% 1, 3000 000 ml @ 999 mls/hr IV . Q1H1M YESSI Rx#:[id number] Intake, IV Titration 601.233 91.394 Amount Piperacillin-Tazobactam 3 100 .375 gm In Sodium Chloride 0.9% 100 ml @ 25 mls/hr IVPB Q8HR [facility] Rx# :[id number] fentaNYL (PF). 1,000 mcg 5.833 In Sodium Chloride 0.9% 80 ml @ Per Protocol IV . Q0M YESSI Rx#:[id number] propofoL 1,000 mg In 495.4 91.394 Empty Bag 1 bag @ Titrate IV .Q0M YESSI Rx#: [id number] Tube Feeding 30 120 30 Other 90 Output: Urine 195 465 125 Other: Voiding Method Indwelling Catheter Indwelling Catheter Indwelling Catheter ABP, PAP, CO, CI - Last Documented Arterial Blood Pressure 107/58 - Labs CBC & Chem 7: 06/05/20 04:30 06/05/20 04:30 Labs: Abnormal Lab Results - Last 24 Hours (Table) 06/04/20 06/04/20 06/04/20 Range/Units 09:26 09:26 12:13 WBC 1.5 L (3.8-10.6) k/uL RBC 3.50 L (3.80-5.40) m/uL Hgb 10.8 L (11.4-16.0) gm/dL Hct 31.1 L (34.0-46.0) % RDW 18.1 H (11.5-15.5) % Plt Count 38 L (150-450) k/uL Neutrophils # 1.2 L (1.3-7.7) k/uL Lymphocytes # 0.2 L (1.0-4.8) k/uL D-Dimer (<0.60) mg/L FEU ABG HCO3 (21-25) mmol/L ABG Total CO2 (19-24) mmol/L ABG O2 Saturation (94-97) % Sodium 128 L (137-145) mmol/L Chloride 93 L (98-107) mmol/L Carbon Dioxide 32 H (22-30) mmol/L BUN 33 H (7-17) mg/dL Creatinine 0.40 L (0.52-1.04) mg/dL Glucose 324 H (74-99) mg/dL POC Glucose (mg/dL) 421 H (75-99) mg/dL Calcium 8.0 L (8.4-10.2) mg/dL Total Bilirubin (0.2-1.3) mg/dL AST (14-36) U/L ALT (4-34) U/L Alkaline Phosphatase (38-126) U/L Lactate Dehydrogenase (313-618) U/L Total Protein (6.3-8.2) g/dL Albumin (3.5-5.0) g/dL 06/04/20 06/04/20 06/05/20 Range/Units 16:42 23:08 04:30 WBC (3.8-10.6) k/uL RBC (3.80-5.40) m/uL Hgb (11.4-16.0) gm/dL Hct (34.0-46.0) % RDW (11.5-15.5) % Plt Count (150-450) k/uL Neutrophils # (1.3-7.7) k/uL Lymphocytes # (1.0-4.8) k/uL D-Dimer (<0.60) mg/L FEU ABG HCO3 (21-25) mmol/L ABG Total CO2 (19-24) mmol/L ABG O2 Saturation (94-97) % Sodium 131 L (137-145) mmol/L Chloride (98-107) mmol/L Carbon Dioxide (22-30) mmol/L BUN 26 H (7-17) mg/dL Creatinine 0.40 L (0.52-1.04) mg/dL Glucose 144 H (74-99) mg/dL POC Glucose (mg/dL) 248 H 145 H (75-99) mg/dL Calcium 7.9 L (8.4-10.2) mg/dL Total Bilirubin 1.9 H (0.2-1.3) mg/dL AST 98 H (14-36) U/L ALT 212 H (4-34) U/L Alkaline Phosphatase 245 H (38-126) U/L Lactate Dehydrogenase 1412 H (313-618) U/L Total Protein 4.6 L (6.3-8.2) g/dL Albumin 2.3 L (3.5-5.0) g/dL 06/05/20 06/05/20 06/05/20 Range/Units 04:30 04:30 05:56 WBC (3.8-10.6) k/uL RBC (3.80-5.40) m/uL Hgb 11.3 L (11.4-16.0) gm/dL Hct 33.7 L (34.0-46.0) % RDW 19.0 H (11.5-15.5) % Plt Count 72 L D (150-450) k/uL Neutrophils # (1.3-7.7) k/uL Lymphocytes # 0.3 L (1.0-4.8) k/uL D-Dimer 1.39 H (<0.60) mg/L FEU ABG HCO3 28 H (21-25) mmol/L ABG Total CO2 30 H (19-24) mmol/L ABG O2 Saturation 97.5 H (94-97) % Sodium (137-145) mmol/L Chloride (98-107) mmol/L Carbon Dioxide (22-30) mmol/L BUN (7-17) mg/dL Creatinine (0.52-1.04) mg/dL Glucose (74-99) mg/dL POC Glucose (mg/dL) (75-99) mg/dL Calcium (8.4-10.2) mg/dL Total Bilirubin (0.2-1.3) mg/dL AST (14-36) U/L ALT (4-34) U/L Alkaline Phosphatase (38-126) U/L Lactate Dehydrogenase (313-618) U/L Total Protein (6.3-8.2) g/dL Albumin (3.5-5.0) g/dL 06/05/20 Range/Units 06:06 WBC (3.8-10.6) k/uL RBC (3.80-5.40) m/uL Hgb (11.4-16.0) gm/dL Hct (34.0-46.0) % RDW (11.5-15.5) % Plt Count (150-450) k/uL Neutrophils # (1.3-7.7) k/uL Lymphocytes # (1.0-4.8) k/uL D-Dimer (<0.60) mg/L FEU ABG HCO3 (21-25) mmol/L ABG Total CO2 (19-24) mmol/L ABG O2 Saturation (94-97) % Sodium (137-145) mmol/L Chloride (98-107) mmol/L Carbon Dioxide (22-30) mmol/L BUN (7-17) mg/dL Creatinine (0.52-1.04) mg/dL Glucose (74-99) mg/dL POC Glucose (mg/dL) 164 H (75-99) mg/dL Calcium (8.4-10.2) mg/dL Total Bilirubin (0.2-1.3) mg/dL AST (14-36) U/L ALT (4-34) U/L Alkaline Phosphatase (38-126) U/L Lactate Dehydrogenase (313-618) U/L Total Protein (6.3-8.2) g/dL Albumin (3.5-5.0) g/dL Assessment and Plan Plan: Assessment: 1. Hyponatremia. Partially due to hyperglycemia. Blood sugars better. Sodium level 131 today. 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 TSH a little low. 2. COVID-19 pneumonia. 3. Diabetes mellitus. 4. Acute hypoxic respiratory failure. On 60% FiO2. Plan: Maintain IV fluids and tube feeding. Wean Levophed. Continue to monitor renal function and urine output. Repeat electrolytes in the morning.
[2020-06-05 10:14] LABS: ABG Base Excess 3.3 mmol/L; ABG HCO3 29 mmol/L (21-25); ABG Oxygen Saturation 97.5 % (94-97); ABG PCO2 49 mmHg (35-45); ABG PH 7.37 (7.35-7.45); ABG PO2 97 mmHg (83-108); ABG TCO2 30 mmol/L (19-24)
[2020-06-05 10:17] LABS: Allen Test Performed? no
--- NOTE | 2020-06-05 10:39 | P.PN ---
Subjective Progress Note Date: 06/05/20 Principal diagnosis: COVID-19 pneumonia This is a 59-year-old white female patient was initially admitted to the hospital on 05/04/2020 with a COVID-19 pneumonia. Patient received Remdesivir, convalescent plasma and subsequently related to increased oxygen needs also received Tocilizumab. She had been on steroids since admission. In the last 2 weeks patient required BiPAP support, and in last several days has become quite BiPAP dependent. She developed respiratory fatigue, worsening hypoxia and was emergently transferred to the intensive care unit yesterday on 06/04/2020 and intubated and placed on mechanical ventilator. She is currently on assist control mode of ventilation with a rate of 24, tidal vitamins 450, FiO2 of 80% and PEEP of 15, this morning's blood gas shows pO2 of 90, pCO2 of 42, and pH of 7.44. She is currently on 0.9 normal saline at 125, norepinephrine is at 0.02 mics per kilo per minute, Diprivan and is at 60 mics per kilo per minute, and f entanyl drip is at 0.5 mics per kilo per hour. Nimbex is at 1 mg/kg/m. Today's chest x-ray shows patchy infiltrates throughout both lung hernandez with interval progression. Her lab work shows white blood cell count of 3.9, hemoglobin of 11.3, platelet count is 72, d-dimer is 1.39, sodium is 131, potassium is 3.7, chloride is 100, CO2 is 28, BUN of 26, creatinine 0.40, total bilirubin is 1.9, her liver enzymes have increased with AST at 98, ALT at 212, alkaline phosphatase at 245, today's LDH is 1412, relatively stable compared to previous value, and CRP is at 0.7. Pro-calcitonin level from 06/02/2020 was negative at 0.13. After the patient was intubated for TPN was discontinued and patient was placed on tube feedings with vital high-protein at 10 ML per hour, and this will be increased to goal per RD recommendations. Currently in terms of treatment she remains on Solu-Medrol at 40 mg every 6 hours, she is on empiric antibiotic coverage in the form of Zosyn, cultures have been negative. Objective - Vital Signs Vital signs: Vital Signs Temp 96.3 F L 06/05/20 08:00 Pulse 50 L 06/05/20 09:15 Resp 24 06/05/20 09:15 BP 97/52 06/05/20 09:15 Pulse Ox 94 L 06/05/20 09:15 Intake & Output 06/04/20 06/05/20 06/05/20 18:59 06:59 18:59 Intake Total 3155 2186.233 496.394 Output Total 195 465 125 Balance 2960 1721.233 371.394 Weight 134.8 kg Intake: IV 3125 1375 375 Sodium Chloride 0.9% 1, 125 1375 375 000 ml @ 125 mls/hr IV . Q8H [facility] Rx#:[id number] Sodium Chloride 0.9% 1, 3000 000 ml @ 999 mls/hr IV . Q1H1M [facility] Rx#:[id number] Intake, IV Titration 601.233 91.394 Amount Piperacillin-Tazobactam 3 100 .375 gm In Sodium Chloride 0.9% 100 ml @ 25 mls/hr IVPB Q8HR [facility] Rx# :[id number] fentaNYL (PF). 1,000 mcg 5.833 In Sodium Chloride 0.9% 80 ml @ Per Protocol IV . Q0M [facility] Rx#:[id number] propofoL 1,000 mg In 495.4 91.394 Empty Bag 1 bag @ Titrate IV .Q0M YESSI Rx#: [id number] Tube Feeding 30 120 30 Other 90 Output: Urine 195 465 125 Other: Voiding Method Indwelling Catheter Indwelling Catheter Indwelling Catheter ABP, PAP, CO, CI - Last Documented Arterial Blood Pressure 107/58 - Exam GENERAL EXAM: sedated, intubated, 59-year-old white female, on assist-control ventilation, with FiO2 of 80% and PEEP of 15, comfortable in no apparent distress. HEAD: Normocephalic/atraumatic. EYES: Normal reaction of pupils, equal size. Conjunctiva pink, sclera white. NOSE: Clear with pink turbinates. Skin breakdown from prolonged BiPAP support on the bridge of the nose THROAT: No erythema or exudates. NECK: No masses, no JVD, no thyroid enlargement, no adenopathy. CHEST: No chest wall deformity. Symmetrical expansion. LUNGS: Equal air entry with no crackles, wheeze, rhonchi or dullness. CVS: Regular rate and rhythm, normal S1 and S2, no gallops, no murmurs, no rubs ABDOMEN: Soft, nontender. No hepatosplenomegaly, normal bowel sounds, no guarding or rigidity. EXTREMITIES: No clubbing, no edema, no cyanosis, 2+ pulses and upper and lower extremities. MUSCULOSKELETAL: Muscle strength and tone normal. SPINE: No scoliosis or deformity SKIN: No rashes CENTRAL NERVOUS SYSTEM: Sedated, intubated No focal deficits, tone is normal in all 4 extremities. - Labs CBC & Chem 7: 06/05/20 04:30 06/05/20 04:30 Labs: Abnormal Lab Results - Last 24 Hours (Table) 06/04/20 06/04/20 06/04/20 Range/Units 09:26 09:26 12:13 WBC 1.5 L (3.8-10.6) k/uL RBC 3.50 L (3.80-5.40) m/uL Hgb 10.8 L (11.4-16.0) gm/dL Hct 31.1 L (34.0-46.0) % RDW 18.1 H (11.5-15.5) % Plt Count 38 L (150-450) k/uL Neutrophils # 1.2 L (1.3-7.7) k/uL Lymphocytes # 0.2 L (1.0-4.8) k/uL D-Dimer (<0.60) mg/L FEU ABG pCO2 (35-45) mmHg ABG HCO3 (21-25) mmol/L ABG Total CO2 (19-24) mmol/L ABG O2 Saturation (94-97) % Sodium 128 L (137-145) mmol/L Chloride 93 L (98-107) mmol/L Carbon Dioxide 32 H (22-30) mmol/L BUN 33 H (7-17) mg/dL Creatinine 0.40 L (0.52-1.04) mg/dL Glucose 324 H (74-99) mg/dL POC Glucose (mg/dL) 421 H (75-99) mg/dL Calcium 8.0 L (8.4-10.2) mg/dL Total Bilirubin (0.2-1.3) mg/dL AST (14-36) U/L ALT (4-34) U/L Alkaline Phosphatase (38-126) U/L Lactate Dehydrogenase (313-618) U/L Total Protein (6.3-8.2) g/dL Albumin (3.5-5.0) g/dL 06/04/20 06/04/20 06/05/20 Range/Units 16:42 23:08 04:30 WBC (3.8-10.6) k/uL RBC (3.80-5.40) m/uL Hgb (11.4-16.0) gm/dL Hct (34.0-46.0) % RDW (11.5-15.5) % Plt Count (150-450) k/uL Neutrophils # (1.3-7.7) k/uL Lymphocytes # (1.0-4.8) k/uL D-Dimer (<0.60) mg/L FEU ABG pCO2 (35-45) mmHg ABG HCO3 (21-25) mmol/L ABG Total CO2 (19-24) mmol/L ABG O2 Saturation (94-97) % Sodium 131 L (137-145) mmol/L Chloride (98-107) mmol/L Carbon Dioxide (22-30) mmol/L BUN 26 H (7-17) mg/dL Creatinine 0.40 L (0.52-1.04) mg/dL Glucose 144 H (74-99) mg/dL POC Glucose (mg/dL) 248 H 145 H (75-99) mg/dL Calcium 7.9 L (8.4-10.2) mg/dL Total Bilirubin 1.9 H (0.2-1.3) mg/dL AST 98 H (14-36) U/L ALT 212 H (4-34) U/L Alkaline Phosphatase 245 H (38-126) U/L Lactate Dehydrogenase 1412 H (313-618) U/L Total Protein 4.6 L (6.3-8.2) g/dL Albumin 2.3 L (3.5-5.0) g/dL 06/05/20 06/05/20 06/05/20 Range/Units 04:30 04:30 05:56 WBC (3.8-10.6) k/uL RBC (3.80-5.40) m/uL Hgb 11.3 L (11.4-16.0) gm/dL Hct 33.7 L (34.0-46.0) % RDW 19.0 H (11.5-15.5) % Plt Count 72 L D (150-450) k/uL Neutrophils # (1.3-7.7) k/uL Lymphocytes # 0.3 L (1.0-4.8) k/uL D-Dimer 1.39 H (<0.60) mg/L FEU ABG pCO2 (35-45) mmHg ABG HCO3 28 H (21-25) mmol/L ABG Total CO2 30 H (19-24) mmol/L ABG O2 Saturation 97.5 H (94-97) % Sodium (137-145) mmol/L Chloride (98-107) mmol/L Carbon Dioxide (22-30) mmol/L BUN (7-17) mg/dL Creatinine (0.52-1.04) mg/dL Glucose (74-99) mg/dL POC Glucose (mg/dL) (75-99) mg/dL Calcium (8.4-10.2) mg/dL Total Bilirubin (0.2-1.3) mg/dL AST (14-36) U/L ALT (4-34) U/L Alkaline Phosphatase (38-126) U/L Lactate Dehydrogenase (313-618) U/L Total Protein (6.3-8.2) g/dL Albumin (3.5-5.0) g/dL 06/05/20 06/05/20 Range/Units 06:06 10:13 WBC (3.8-10.6) k/uL RBC (3.80-5.40) m/uL Hgb (11.4-16.0) gm/dL Hct (34.0-46.0) % RDW (11.5-15.5) % Plt Count (150-450) k/uL Neutrophils # (1.3-7.7) k/uL Lymphocytes # (1.0-4.8) k/uL D-Dimer (<0.60) mg/L FEU ABG pCO2 49 H (35-45) mmHg ABG HCO3 29 H (21-25) mmol/L ABG Total CO2 30 H (19-24) mmol/L ABG O2 Saturation 97.5 H (94-97) % Sodium (137-145) mmol/L Chloride (98-107) mmol/L Carbon Dioxide (22-30) mmol/L BUN (7-17) mg/dL Creatinine (0.52-1.04) mg/dL Glucose (74-99) mg/dL POC Glucose (mg/dL) 164 H (75-99) mg/dL Calcium (8.4-10.2) mg/dL Total Bilirubin (0.2-1.3) mg/dL AST (14-36) U/L ALT (4-34) U/L Alkaline Phosphatase (38-126) U/L Lactate Dehydrogenase (313-618) U/L Total Protein (6.3-8.2) g/dL Albumin (3.5-5.0) g/dL Assessment and Plan Plan: Assessment: #1. Acute hypoxic respiratory failure related to COVID-19 pneumonia, status p ost Remdesivir, convalescent plasma, and patient received Tocilizumab for progressive hypoxia and dyspnea. Required prolonged BiPAP support, intubated and placed on mechanical ventilator on 06/04/2020 #2. Neutropenia, low platelet count, possibility of sepsis was considered and patient was placed on Zosyn, blood cultures and procalcitonin remain negative #3. Increased d-dimer and inflammatory markers related to acute COVID-19 pneumonia #4. Hyponatremia, multifactorial possibly related to hyperglycemia, SIADH, hypothyroidism and poor oral intake and hypoalbuminemia. Improving on today's labs #5. Diabetes mellitus type 2 #6. Obesity with a BMI of 46.5 kg/m #7. Hypertension #8. Hyperlipidemia #9. Hypothyroidism Plan: Continue current vent settings Today's chest x-ray and blood gas reviewed, labs reviewed Increase tube feedings to goal per RD recommendations Procalcitonin level is negative, blood cultures have been negative, neutropenia has improved, will continue with Zosyn for another 24 hours and will likely discontinue tomorrow Mechanical DVT prophylaxis, we'll repeat a d-dimer, fibrinogen level, PT, PTT We will need hematology input in terms of prophylactic anticoagulation recommendations Gen. surgery consultation for tracheostomy and PEG tube placement Continue to closely follow in the intensive care unit Overall prognosis is guarded I performed a history & physical examination of the patient and discussed their management with my nurse practitioner, Chela Lopez. I reviewed the nurse practitioner's note and agree with the documented findings and plan of care. Lung sounds are positive for diminished breath sounds with bilateral crackles The findings and the impression was discussed with the patient. I attest to the documentation by the nurse practitioner. Time with Patient: Greater than 30
--- NOTE | 2020-06-05 12:02 | P.GSCN ---
History of Present Illness Consult date: 06/05/20 History of present illness: CHIEF COMPLAINT: Shortness of breath HISTORY OF PRESENT ILLNESS: This is a 59-year-old female with a known past medical history of diabetes, hypertension, hyperlipidemia, hypothyroidism. She has surgical history of sleeve gastrectomy and cholecystectomy. Patient presented to the hospital on 05/04/2020 with worsening shortness of breath and fevers. She was found have evidence of COVID-19 pneumonia. Patient has had prolonged hospitalization. Over the last 2 weeks patient has required BiPAP support. Yesterday patient had worsening hypoxia and did require transfer to the ICU and was intubated and placed on mechanical ventilation. She is on Levophed for blood pressure support. She also is on fentanyl and propofol. She is on tube feedings for nutrition support. Surgical service has been consulted for tracheostomy and PEG tube placement. PAST MEDICAL HISTORY: See list. PAST SURGICAL HISTORY: See list. MEDICATIONS: See list. ALLERGIES: See list. SOCIAL HISTORY: No illicit drug use. REVIEW OF SYSTEMS: Unable to obtain patient is intubated and sedated PHYSICAL EXAM: VITAL SIGNS: Reviewed GENERAL: Well-developed in no acute distress. HEENT: No sclera icterus. Extraocular movements grossly intact. Moist buccal mucosa. Head is atraumatic, normocephalic. No nasal drainage. ABDOMEN: Soft. Nondistended. Nontender NEUROLOGIC: Intubated and sedated LABORATORY DATA: WBC 3.9 hemoglobin 11.3 platelets 72 Sodium 131 potassium 3.7 BUN 26 creatinine 0.40 Albumin 2.3 IMAGING: ASSESSMENT: 1. Acute hypoxic respiratory failure secondary to COVID-19 pneumonia 2. Severe protein calorie malnutrition 3. Hyponatremia followed by nephrology 4. Thrombocytopenia followed by hematology PLAN: -Patient is scheduled for tracheostomy and PEG tube placement on 06/07/[address] Christy -Continue ICU management -Continue supportive care Physician Field Technician note has been reviewed by physician. Signing provider agrees with the documented findings, assessment, and plan of care. Past Medical History Past Medical History: Blood Disorder, Diabetes Mellitus, GERD/Reflux, GI Bleed, Hyperlipidemia, Hypertension, Thyroid Disorder Additional Past Medical History / Comment(s): HX PANTOCYPOPENIA-CT SCAN REVEALED ENLARGED SPLEEN History of Any Multi-Drug Resistant Organisms: None Reported Past Surgical History: Bariatric Surgery, Cholecystectomy, Heart Catheterization, Tonsillectomy Additional Past Surgical History / Comment(s): COLONOSCOPY. SPINAL FUSION 2018. GASTRIC SLEEVE 2011 Past Anesthesia/Blood Transfusion Reactions: No Reported Reaction Past Psychological History: Depression Smoking Status: Never smoker Past Alcohol Use History: None Reported Past Drug Use History: None Reported - Past Family History Mother Family Medical History: Cancer Father Family Medical History: Cancer Medications and Allergies Home Medications Medication Instructions Recorded Confirmed Type Levothyroxine Sodium [Synthroid] 75 mcg PO DAILY 10/17/15 05/04/20 History [facility] 05/04/20 History Allopurinol [Zyloprim] 100 mg PO DAILY 03/05/20 05/04/20 History Atorvastatin [Lipitor] 40 mg PO DAILY 03/05/20 05/04/20 History Baclofen [Lioresal] 20 mg PO HS 03/05/20 05/04/20 History Ergocalciferol [Vitamin D2 (1250 1,250 mcg PO DELACRUZ 03/05/20 05/04/20 History Mcg = [id number] Iu)] Escitalopram [Lexapro] 20 mg PO DAILY 03/05/20 05/04/20 History Ferrous Sulfate [Feosol] 325 mg PO DAILY 03/05/20 05/04/20 History Gabapentin [Neurontin] 600 mg PO QID 03/05/20 05/04/20 History [facility] 03/05/20 05/04/20 History Lisinopril [Prinivil] 10 mg PO DAILY 03/05/20 05/04/20 History Melatonin 3 mg PO HS 03/05/20 05/04/20 History Pioglitazone [Actos] 30 mg PO DAILY 03/05/20 05/04/20 History metFORMIN HCL [Glucophage] 500 mg PO TID 03/05/20 05/04/20 History Ibuprofen [Motrin] 800 mg PO Q8H PRN 05/04/20 05/04/20 History Allergies Allergy/AdvReac Type Severity Reaction Status Date / Time codeine Allergy Rash/Hives Verified 05/04/20 13:52 Surgical - Exam Vital Signs Temp Pulse Resp BP Pulse Ox 101.2 F H 89 22 113/74 96 05/04/20 12:22 05/04/20 12:22 05/04/20 12:22 05/04/20 12:22 05/04/20 12:22 Results - Labs 06/05/20 04:30 06/05/20 04:30 Abnormal Lab Results - Last 24 Hours (Table) 06/04/20 06/04/20 06/04/20 Range/Units 12:13 16:42 23:08 Hgb (11.4-16.0) gm/dL Hct (34.0-46.0) % RDW (11.5-15.5) % Plt Count (150-450) k/uL Lymphocytes # (1.0-4.8) k/uL D-Dimer (<0.60) mg/L FEU ABG pCO2 (35-45) mmHg ABG HCO3 (21-25) mmol/L ABG Total CO2 (19-24) mmol/L ABG O2 Saturation (94-97) % Sodium (137-145) mmol/L BUN (7-17) mg/dL Creatinine (0.52-1.04) mg/dL Glucose (74-99) mg/dL POC Glucose (mg/dL) 421 H 248 H 145 H (75-99) mg/dL Calcium (8.4-10.2) mg/dL Total Bilirubin (0.2-1.3) mg/dL AST (14-36) U/L ALT (4-34) U/L Alkaline Phosphatase (38-126) U/L Lactate Dehydrogenase (313-618) U/L Total Protein (6.3-8.2) g/dL Albumin (3.5-5.0) g/dL 06/05/20 06/05/20 06/05/20 Range/Units 04:30 04:30 04:30 Hgb 11.3 L (11.4-16.0) gm/dL Hct 33.7 L (34.0-46.0) % RDW 19.0 H (11.5-15.5) % Plt Count 72 L D (150-450) k/uL Lymphocytes # 0.3 L (1.0-4.8) k/uL D-Dimer 1.39 H (<0.60) mg/L FEU ABG pCO2 (35-45) mmHg ABG HCO3 (21-25) mmol/L ABG Total CO2 (19-24) mmol/L ABG O2 Saturation (94-97) % Sodium 131 L (137-145) mmol/L BUN 26 H (7-17) mg/dL Creatinine 0.40 L (0.52-1.04) mg/dL Glucose 144 H (74-99) mg/dL POC Glucose (mg/dL) (75-99) mg/dL Calcium 7.9 L (8.4-10.2) mg/dL Total Bilirubin 1.9 H (0.2-1.3) mg/dL AST 98 H (14-36) U/L ALT 212 H (4-34) U/L Alkaline Phosphatase 245 H (38-126) U/L Lactate Dehydrogenase 1412 H (313-618) U/L Total Protein 4.6 L (6.3-8.2) g/dL Albumin 2.3 L (3.5-5.0) g/dL 06/05/20 06/05/20 06/05/20 Range/Units 05:56 06:06 10:13 Hgb (11.4-16.0) gm/dL Hct (34.0-46.0) % RDW (11.5-15.5) % Plt Count (150-450) k/uL Lymphocytes # (1.0-4.8) k/uL D-Dimer (<0.60) mg/L FEU ABG pCO2 49 H (35-45) mmHg ABG HCO3 28 H 29 H (21-25) mmol/L ABG Total CO2 30 H 30 H (19-24) mmol/L ABG O2 Saturation 97.5 H 97.5 H (94-97) % Sodium (137-145) mmol/L BUN (7-17) mg/dL Creatinine (0.52-1.04) mg/dL Glucose (74-99) mg/dL POC Glucose (mg/dL) 164 H (75-99) mg/dL Calcium (8.4-10.2) mg/dL Total Bilirubin (0.2-1.3) mg/dL AST (14-36) U/L ALT (4-34) U/L Alkaline Phosphatase (38-126) U/L Lactate Dehydrogenase (313-618) U/L Total Protein (6.3-8.2) g/dL Albumin (3.5-5.0) g/dL Diabetes panel 06/05/20 Range/Units 04:30 Sodium 131 L (137-145) mmol/L Potassium 3.7 (3.5-5.1) mmol/L Chloride 100 (98-107) mmol/L Carbon Dioxide 28 (22-30) mmol/L BUN 26 H (7-17) mg/dL Creatinine 0.40 L (0.52-1.04) mg/dL Glucose 144 H (74-99) mg/dL Calcium 7.9 L (8.4-10.2) mg/dL AST 98 H (14-36) U/L ALT 212 H (4-34) U/L Alkaline Phosphatase 245 H (38-126) U/L Total Protein 4.6 L (6.3-8.2) g/dL Albumin 2.3 L (3.5-5.0) g/dL Calcium panel 06/05/20 Range/Units 04:30 Calcium 7.9 L (8.4-10.2) mg/dL Phosphorus 3.4 (2.5-4.5) mg/dL Albumin 2.3 L (3.5-5.0) g/dL Pituitary panel 06/05/20 Range/Units 04:30 Sodium 131 L (137-145) mmol/L Potassium 3.7 (3.5-5.1) mmol/L Chloride 100 (98-107) mmol/L Carbon Dioxide 28 (22-30) mmol/L BUN 26 H (7-17) mg/dL Creatinine 0.40 L (0.52-1.04) mg/dL Glucose 144 H (74-99) mg/dL Calcium 7.9 L (8.4-10.2) mg/dL Adrenal panel 06/05/20 Range/Units 04:30 Sodium 131 L (137-145) mmol/L Potassium 3.7 (3.5-5.1) mmol/L Chloride 100 (98-107) mmol/L Carbon Dioxide 28 (22-30) mmol/L BUN 26 H (7-17) mg/dL Creatinine 0.40 L (0.52-1.04) mg/dL Glucose 144 H (74-99) mg/dL Calcium 7.9 L (8.4-10.2) mg/dL Total Bilirubin 1.9 H (0.2-1.3) mg/dL AST 98 H (14-36) U/L ALT 212 H (4-34) U/L Alkaline Phosphatase 245 H (38-126) U/L Total Protein 4.6 L (6.3-8.2) g/dL Albumin 2.3 L (3.5-5.0) g/dL
--- NOTE | 2020-06-05 12:10 | P.PN ---
Subjective Progress Note Date: 06/05/20 [id number] female admitted with acute hypoxic respiratory failure secondary to covid- 19 pneumonia, hypertension, diabetes mellitus, obesity and multiple other medical issues. Oxygen requirements worsened, requiring BiPAP. Chest x-ray reporting bilateral interstitial and patchy airspace opacities remain ,mild cardiomegaly. Denies chest pain, palpitations, reports chest soreness from nonproductive cough. Received a dose of Actemra, maintained on Remdesevir, IV steroids , antibiotics and multivitamin supplements. Afebrile, LDH and C- reactive protein trending down. 05/07/2020 Maintained on Remdesevir/covid regimine. Continues to require BiPAP 100% to maintain O2 sats in the high 80s to 90s. Complains of anxiety regarding mask. Deep breaths trigger cough. Afebrile. Labs pending. Denies chest pain, palpitations. 05/08/2020 sitting up at side of bed, continues to require 100% BiPAP. Ma intained on Covid regimen including Remdesevir. T-max 99.1. Occasional nonproductive cough. Denies chest pain, 05/09/20 unable to tolerate BiPAP decreased to 90% with O2 sats decreased to 84%, currently back up on 100% BiPAP, maintaining O2 sats in the 90s on 100s. T-max 99.1, labs pending. Anxiety controlled. Maintained on Covid regimen, completed 5 doses of Remdesevir. Labs pending. 05/10/2020 maintaining O2 sats in the low 90s on 95% BiPAP. Continues on IV steroids, vitamin C, vitamin D, zinc. Afebrile. Reports less coughing. Denies chest pain, palpitations. 05/13/2020 patient feeling better, reports she has " turned the corner". Maintaining O2 sats in the 90s on BiPAP 70%. Minimal nonproductive cough. Denies chest pain, palpitations. Afebrile, Received Lasix yesterday, potassium 3.4.,creatinine 0.69. 05/14/2020 continues feeling better, maintaining O2 sats in the 90s on BiPAP 70%. Occasional nonproductive cough. Mild pedal edema. Denies chest pain, palpitations. 05/15/2020 maintaining O2 sats in the low 90s on 70% BiPAP. Received Lasix yesterday, less pedal edema, renal function stable. Breathing easier. Blood sugars controlled. 05/16/2020 maintaining O2 sats in the low 90s on nonrebreather and high flow airvo. Afebrile, sodium trending down, 123, creatinine 1.8. Continues to feel better and reporting less shortness of breath. 05/17/2020 80% BiPAP, maintaining O2 sats in the 90s. Reports last night she tolerated 15 minutes on 15 L high flow nasal cannula plus nonrebreather mask .Nonproductive cough. Less tired, reports more energy. Blood sugars controlled. Denies chest pain, palpitations. Afebrile. 05/20/2020 maintained on BiPAP 90%, maintaining O2 sats in the high 80s to low 90s. Hemoglobin 11.7, Platelets decreased to 30, currently off of Lovenox .Afebrile, WBC 2.9. Chest x-ray pending. 05/21/2020 continues on BiPAP 90% maintaining O2 sats in the high 80s. Reports that well, feels good. Afebrile. Yesterday's x-ray reported persistent low lung volumes, cardiomegaly, bilateral multifocal opacity is consistent with Covid 19 infectionno significant change. Doppler reported Bilateral lower extremities negative for DVT. Diuresing well on Lasix IV push with 24-hour I&O reflecting a negative fluid balance. BUN 25, creatinine 0.7. Hit antibodies pending. 05/22/2020 maintaining O2 sats of 87 to low 90s on 90% BiPAP. Diuresing well on Lasix IV push with 24-hour I&O reflecting a negative fluid balance. BUN 27/creatinine 0.73. Hemoglobin 13.5, platelets 23-anticoagulation remains on hold. Hematology consult in place, recommendations pending. Reports sleeping well with no shortness of breath. Afebrile, normal WBC. 05/23/2020 remains on same BiPAP settings of 90% maintaining O2 sats of 90. in October she was referred to hematology/Dr. Carrion further workup regarding pancytopenia. Bone marrow was completed and was told it was fine and that she had iron deficient anemia and needed to proceed with iron transfusions. Reports she did not have a chance to start the transfusions prior to being hospitalized with Covid. Platelets currently 19 without evidence of bleeding, no petechiae .evaluated by hematology yesterday with recommendations noted and appreciated. Received transfusion of cryoprecipitate with fibrinogen up to 158. 05/24/2020 continues on BiPAP 90% to maintain O2 sats in the high 80s to low 90s. Chest x-ray pending. Telemetry sinus rhythm. hypertensive this morning, hydrochlorothiazide added to med regimen. Labs pending. Good diet intake .Hyperglycemic, blood sugars ranging from 160s to 220. 05/27/2020 maintained on 100% BiPAP, with O2 sats of low 90s. Chest x-ray reporting increasing bilateral airspace disease, hypoventilatory changes. D- dimer 0.65. CTA ordered. Hemoglobin 12.6, platelets 19. Sodium 127, on fluid restrictions. BUN 51, creatinine 0.77. T bili and LFTs remain elevated. C- reactive protein 0.8 05/28/2020 continues on BiPAP 100% maintaining marginal O2 sats. Chest CTA reported suboptimal study without significant central pulmonary embolism, cannot entirely exclude smaller segmental/subsegmental PE, worsening bilateral multi focal/confluent groundglass opacity. T bili 1.7, LFTs elevated, minimal change. Abdominal ultrasound pending. Platelets increased to 22. Sodium 126. BUN 44, creatinine 0.7. Blood sugars controlled. 05/29/2020 maintained on 100% BiPAP, O2 sats remain marginal, in the high 80s. Complains of fatigue. Labs pending. 05/31/2019 BiPAP 100%, maintaining O2 sats in the 80s. Reports anxiety/panic attack during the night, relieved with Ativan. Bicarb 36. Maintained on Declomycin,Sodium 126, platelets 26. BUN 42, creatinine 0.68. T bili, LFTs trending down. Albumin 2.7. Diet intake has been around 25% but this morning and did not eat anything. PICC line placed yesterday for TPN. 06/01/2019 BiPAP 100%, maintaining marginal O2 sats. Feels less short of breath. Required Ativan last night and her mild anxiety. Reports cough is better. Afebrile, WBC 2, platelets 33. Sodium 127. BUN 30, creatinine 0.52. T bili within normal limits, LFTs continue trending down. Denies chest pain, palpitations. 06/03/2020 yesterday placed on empiric Zosyn related to minimal improvement. Continues on BiPAP 100%, reports increased coughing. Unable to come off BiPAP mask, desats quickly; unable to take oral medications. Continues on TPN .Sugars uncontrolled in the 300s. Labs pending, yesterday platelets 32, sodium 127. Borderline hypotension. Discussed CODE STATUS with patient. Patient wants to remain a full code including intubation, at this time. 06/04/2020 continues on 100% BiPAP maintaining O2 sats of 87%. Not able to tolerate mask removal. Patient is tired, weak, coughing. WBC 1.5, hemoglobin 10.8, platelets 38. Sodium 128, CO2 32 BUN 33, creatinine 0.4. Maintained on TPN, blood sugars elevated. 05/28/2020 yesterday weaker, developed respiratory distress transferred to ICU , intubated, maintained on 80% FiO2/+15 of PEEP with O2 sats in the low 90s. Chest x-ray reporting patchy infiltrates throughout both lung hernandez with interval progression .borderline blood pressures, containing a map of 63-66 .Continues on diprovan, fentanyl, Levophed, Nimbex. Maintained on empiric antibiotics of Zosyn, Afebrile, cultures reporting no growth. WBC 3.9,. Hemoglobin 11.3, platelets 72. D-dimer 1.39, LDH 1412, CK 34 CRP 0.7. sodium 131, BUN 26, creatinine 0.4, converted from TPN to high protein tube feeds ,blood sugars controlled. Increased T bili 1.9, AST 98, ALT 212, alk phos 245. Objective - Vital Signs Vital signs: Vital Signs Temp 96.3 F L 06/05/20 08:00 Pulse 45 L 06/05/20 11:15 Resp 21 06/05/20 11:15 BP 81/43 06/05/20 11:15 Pulse Ox 93 L 06/05/20 11:15 Intake & Output 06/04/20 06/05/20 06/05/20 18:59 06:59 18:59 Intake Total 3155 2186.233 506.394 Output Total 195 465 125 Balance 2960 1721.233 381.394 Weight 134.8 kg 134.8 kg Intake: IV 3125 1375 375 Sodium Chloride 0.9% 1, 125 1375 375 000 ml @ 125 mls/hr IV . Q8H [facility] Rx#:[id number] Sodium Chloride 0.9% 1, 3000 000 ml @ 999 mls/hr IV . Q1H1M [facility] Rx#:[id number] Intake, IV Titration 601.233 91.394 Amount Piperacillin-Tazobactam 3 100 .375 gm In Sodium Chloride 0.9% 100 ml @ 25 mls/hr IVPB Q8HR [facility] Rx# :[id number] fentaNYL (PF). 1,000 mcg 5.833 In Sodium Chloride 0.9% 80 ml @ Per Protocol IV . Q0M [facility] Rx#:[id number] propofoL 1,000 mg In 495.4 91.394 Empty Bag 1 bag @ Titrate IV .Q0M [facility] Rx#: [id number] Tube Feeding 30 120 40 Other 90 Output: Urine 195 465 125 Other: Voiding Method Indwelling Catheter Indwelling Catheter Indwelling Catheter ABP, PAP, CO, CI - Last Documented Arterial Blood Pressure 147/72 - Exam PHYSICAL EXAM: Limited exam in a patient with Covid, intubated VITAL SIGNS: [As above] GENERAL: Sedated, intubated and on paralytics CARDIOVASCULAR: S1, S2 regular.No murmur NERVOUS SYSTEM: Unable to assess, intubated sedated on paralytics - Labs CBC & Chem 7: 06/05/20 04:30 06/05/20 04:30 Labs: Abnormal Lab Results - Last 24 Hours (Table) 06/04/20 06/04/20 06/04/20 Range/Units 12:13 16:42 23:08 Hgb (11.4-16.0) gm/dL Hct (34.0-46.0) % RDW (11.5-15.5) % Plt Count (150-450) k/uL Lymphocytes # (1.0-4.8) k/uL D-Dimer (<0.60) mg/L FEU ABG pCO2 (35-45) mmHg ABG HCO3 (21-25) mmol/L ABG Total CO2 (19-24) mmol/L ABG O2 Saturation (94-97) % Sodium (137-145) mmol/L BUN (7-17) mg/dL Creatinine (0.52-1.04) mg/dL Glucose (74-99) mg/dL POC Glucose (mg/dL) 421 H 248 H 145 H (75-99) mg/dL Calcium (8.4-10.2) mg/dL Total Bilirubin (0.2-1.3) mg/dL AST (14-36) U/L ALT (4-34) U/L Alkaline Phosphatase (38-126) U/L Lactate Dehydrogenase (313-618) U/L Total Protein (6.3-8.2) g/dL Albumin (3.5-5.0) g/dL 06/05/20 06/05/20 06/05/20 Range/Units 04:30 04:30 04:30 Hgb 11.3 L (11.4-16.0) gm/dL Hct 33.7 L (34.0-46.0) % RDW 19.0 H (11.5-15.5) % Plt Count 72 L D (150-450) k/uL Lymphocytes # 0.3 L (1.0-4.8) k/uL D-Dimer 1.39 H (<0.60) mg/L FEU ABG pCO2 (35-45) mmHg ABG HCO3 (21-25) mmol/L ABG Total CO2 (19-24) mmol/L ABG O2 Saturation (94-97) % Sodium 131 L (137-145) mmol/L BUN 26 H (7-17) mg/dL Creatinine 0.40 L (0.52-1.04) mg/dL Glucose 144 H (74-99) mg/dL POC Glucose (mg/dL) (75-99) mg/dL Calcium 7.9 L (8.4-10.2) mg/dL Total Bilirubin 1.9 H (0.2-1.3) mg/dL AST 98 H (14-36) U/L ALT 212 H (4-34) U/L Alkaline Phosphatase 245 H (38-126) U/L Lactate Dehydrogenase 1412 H (313-618) U/L Total Protein 4.6 L (6.3-8.2) g/dL Albumin 2.3 L (3.5-5.0) g/dL 06/05/20 06/05/20 06/05/20 Range/Units 05:56 06:06 10:13 Hgb (11.4-16.0) gm/dL Hct (34.0-46.0) % RDW (11.5-15.5) % Plt Count (150-450) k/uL Lymphocytes # (1.0-4.8) k/uL D-Dimer (<0.60) mg/L FEU ABG pCO2 49 H (35-45) mmHg ABG HCO3 28 H 29 H (21-25) mmol/L ABG Total CO2 30 H 30 H (19-24) mmol/L ABG O2 Saturation 97.5 H 97.5 H (94-97) % Sodium (137-145) mmol/L BUN (7-17) mg/dL Creatinine (0.52-1.04) mg/dL Glucose (74-99) mg/dL POC Glucose (mg/dL) 164 H (75-99) mg/dL Calcium (8.4-10.2) mg/dL Total Bilirubin (0.2-1.3) mg/dL AST (14-36) U/L ALT (4-34) U/L Alkaline Phosphatase (38-126) U/L Lactate Dehydrogenase (313-618) U/L Total Protein (6.3-8.2) g/dL Albumin (3.5-5.0) g/dL Assessment and Plan Assessment: Sepsis, present on admission secondary to Acute Covid-19 pneumonia, status post convalescent plasma, received tocilizumab, completed Remdesevir. Acute hypoxic respiratory failure secondary, prolonged BiPAP dependent, currently mechanical ventilator-dependent Hyponatremia, hypovolemic Acute anxiety secondary to the above and BiPAP mask, improved leukopenia, lymphopenia and thrombocytopenia secondary to above, hematology following. Low grade DIC as per hematology, status post cryoprecipitate Viral hepatitis, LFTs elevated secondary to Covid Hit antibodies negative Diabetes mellitus type 2 Hypertension Hyperlipidemia Hypothyroidism Morbid obesity, BMI 47 Plan: Continue on current medication regimen, monitoring and symptomatic treatment. Nutritional support with high protein tube feeds. Maintained on empiric Zosyn, COVID cocktail.surgery.consult for trach PEG in place.Prognosis guarded given multiple complex medical issues. The impression and plan of care has been dictated as directed. : I performed a history and examination of this patient, discussed the same with the dictator. I agree with the dictator's note ,documented as a scribe. Any additional findings or plans will be noted.
[2020-06-05 12:16] LABS: Glucose,Whole Blood 190 mg/dL (75-99)
[2020-06-05] MEDS: CISATRACURIUM 200 MG in SODIUM CHLORIDE 0.9% 180 ML IV SCH (16:49)
[2020-06-05 17:03] LABS: Glucose,Whole Blood 216 mg/dL (75-99)
[2020-06-05] MEDS: NOREPINEPHRINE 8 MG in SODIUM CHLORIDE 0.9% 250 ML IV SCH (18:01)
--- NOTE | 2020-06-05 19:07 | P.PN ---
Subjective Progress Note Date: 06/05/20 Principal diagnosis: Sepsis, Respiratory failure, DIC Patient is now intubated in the care of ICU. CBC stable, continue to monitor Objective - Vital Signs Vital signs: Vital Signs Temp 97.5 F L 06/05/20 16:00 Pulse 56 L 06/05/20 18:30 Resp 28 H 06/05/20 18:30 BP 103/50 06/05/20 18:30 Pulse Ox 91 L 06/05/20 18:30 Intake & Output 06/05/20 06/05/20 06/06/20 06:59 18:59 06:59 Intake Total 2186.233 2565.979 Output Total 465 475 Balance 6031.228 9295.979 Weight 134.8 kg 134.8 kg Intake: IV 1375 1500 Sodium Chloride 0.9% 1, 1375 1500 000 ml @ 125 mls/hr IV . Q8H [facility] Rx#:[id number] Intake, IV Titration 601.233 795.979 Amount Cisatracurium 200 mg In 141.377 Sodium Chloride 0.9% 180 ml @ 1 MCG/KG/MIN 7.95 mls/hr IV .Q24H [facility] Rx#: [id number] Norepinephrine 8 mg In 258 Sodium Chloride 0.9% 250 ml @ 0.05 MCG/KG/MIN 12. 819 mls/hr IV .Q20H8M [facility] Rx#:[id number] Piperacillin-Tazobactam 3 100 .375 gm In Sodium Chloride 0.9% 100 ml @ 25 mls/hr IVPB Q8HR [facility] Rx# :[id number] fentaNYL (PF). 1,000 mcg 5.833 7.95 In Sodium Chloride 0.9% 80 ml @ Per Protocol IV . Q0M [facility] Rx#:[id number] propofoL 1,000 mg In 495.4 388.652 Empty Bag 1 bag @ Titrate IV .Q0M [facility] Rx#: [id number] Tube Feeding 120 210 Other 90 60 Output: Urine 465 475 Other: Voiding Method Indwelling Catheter Indwelling Catheter ABP, PAP, CO, CI - Last Documented Arterial Blood Pressure 106/60 - Exam - Constitutional Intubated - EENT - Respiratory Respiratory: bilateral: diminished, increased effort - Cardiovascular Heart sounds: irr tach Peripheral Edema: bilateral: Trace - Neurologic Neurologic: ORLIN - Musculoskeletal Musculoskeletal: orlin - Labs CBC & Chem 7: 06/05/20 04:30 06/05/20 04:30 Labs: Abnormal Lab Results - Last 24 Hours (Table) 06/04/20 06/05/20 06/05/20 Range/Units 23:08 04:30 04:30 Hgb (11.4-16.0) gm/dL Hct (34.0-46.0) % RDW (11.5-15.5) % Plt Count (150-450) k/uL Lymphocytes # (1.0-4.8) k/uL D-Dimer 1.39 H (<0.60) mg/L FEU ABG pCO2 (35-45) mmHg ABG HCO3 (21-25) mmol/L ABG Total CO2 (19-24) mmol/L ABG O2 Saturation (94-97) % Sodium 131 L (137-145) mmol/L BUN 26 H (7-17) mg/dL Creatinine 0.40 L (0.52-1.04) mg/dL Glucose 144 H (74-99) mg/dL POC Glucose (mg/dL) 145 H (75-99) mg/dL Calcium 7.9 L (8.4-10.2) mg/dL Total Bilirubin 1.9 H (0.2-1.3) mg/dL AST 98 H (14-36) U/L ALT 212 H (4-34) U/L Alkaline Phosphatase 245 H (38-126) U/L Lactate Dehydrogenase 1412 H (313-618) U/L Total Protein 4.6 L (6.3-8.2) g/dL Albumin 2.3 L (3.5-5.0) g/dL 06/05/20 06/05/20 06/05/20 Range/Units 04:30 05:56 06:06 Hgb 11.3 L (11.4-16.0) gm/dL Hct 33.7 L (34.0-46.0) % RDW 19.0 H (11.5-15.5) % Plt Count 72 L D (150-450) k/uL Lymphocytes # 0.3 L (1.0-4.8) k/uL D-Dimer (<0.60) mg/L FEU ABG pCO2 (35-45) mmHg ABG HCO3 28 H (21-25) mmol/L ABG Total CO2 30 H (19-24) mmol/L ABG O2 Saturation 97.5 H (94-97) % Sodium (137-145) mmol/L BUN (7-17) mg/dL Creatinine (0.52-1.04) mg/dL Glucose (74-99) mg/dL POC Glucose (mg/dL) 164 H (75-99) mg/dL Calcium (8.4-10.2) mg/dL Total Bilirubin (0.2-1.3) mg/dL AST (14-36) U/L ALT (4-34) U/L Alkaline Phosphatase (38-126) U/L Lactate Dehydrogenase (313-618) U/L Total Protein (6.3-8.2) g/dL Albumin (3.5-5.0) g/dL 06/05/20 06/05/20 06/05/20 Range/Units 10:13 11:58 17:01 Hgb (11.4-16.0) gm/dL Hct (34.0-46.0) % RDW (11.5-15.5) % Plt Count (150-450) k/uL Lymphocytes # (1.0-4.8) k/uL D-Dimer (<0.60) mg/L FEU ABG pCO2 49 H (35-45) mmHg ABG HCO3 29 H (21-25) mmol/L ABG Total CO2 30 H (19-24) mmol/L ABG O2 Saturation 97.5 H (94-97) % Sodium (137-145) mmol/L BUN (7-17) mg/dL Creatinine (0.52-1.04) mg/dL Glucose (74-99) mg/dL POC Glucose (mg/dL) 190 H 216 H (75-99) mg/dL Calcium (8.4-10.2) mg/dL Total Bilirubin (0.2-1.3) mg/dL AST (14-36) U/L ALT (4-34) U/L Alkaline Phosphatase (38-126) U/L Lactate Dehydrogenase (313-618) U/L Total Protein (6.3-8.2) g/dL Albumin (3.5-5.0) g/dL Assessment and Plan Plan: - Imaging and Cardiology Chest x-ray: report reviewed Assessment and Plan Thrombocytopenia: ITP versus DIC (disseminated intravascular coagulation) Mild DIC - Improved Continue to monitor Coags CBC pending today - Resolving Increased LFTs: - Likely secondary to medication and Illness: - Monitor daily - Ultrasound reviewed, no obstruction noted Coronavirus infection - Per Pulmonology and ID - Best Supportive Care Acute Hypoxia Respiratory Failure - now intubated on ventilator - Worsening Plan: CBC remains stable, will monitor daily Continue care per ICU
[2020-06-05 19:22] LABS: Ferritin 231.8 ng/mL (10.0-291.0)
[2020-06-05 23:40] LABS: Glucose,Whole Blood 195 mg/dL (75-99)
[2020-06-06 04:33] LABS: Anisocytosis Slight; Basophils # (A) 0.1 k/uL (0-0.2); Basophils % (A) 1 %; Eosinophils # (A) 0.1 k/uL (0-0.7); Eosinophils % (A) 1 %; HCT 35.3 % (34.0-46.0); HGB 12.2 gm/dL (11.4-16.0); Lymphocytes # (A) 0.4 k/uL (1.0-4.8); Lymphocytes % (A) 8 %; MCH 31.1 pg (25.0-35.0); MCHC 34.7 g/dL (31.0-37.0); MCV 89.5 fL (80.0-100.0); Mean Platelet Volume 9.7; Monocytes # (A) 0.4 k/uL (0-1.0); Monocytes % (A) 7 %; Neutrophils # (A) 4.6 k/uL (1.3-7.7); Neutrophils % (A) 82 %; RBC 3.94 m/uL (3.80-5.40); WBC 5.6 k/uL (3.8-10.6)
[2020-06-06 05:01] LABS: Platelet Count 79 k/uL (150-450)
[2020-06-06 05:02] LABS: D-Dimer 1.39 mg/L FEU (<0.60); Prothrombin Time 10.6 sec (9.0-12.0)
[2020-06-06 05:13] LABS: ABG Base Excess 0.5 mmol/L; ABG HCO3 27 mmol/L (21-25); ABG Oxygen Saturation 92.6 % (94-97); ABG PCO2 56 mmHg (35-45); ABG PO2 69 mmHg (83-108); ABG TCO2 29 mmol/L (19-24)
[2020-06-06 05:21] LABS: ALT 369 U/L (4-34); AST 203 U/L (14-36); African American GFR (CKD) >90 (>60 ml/min/1.73 sqM); Albumin 2.5 g/dL (3.5-5.0); Alkaline Phosphatase 316 U/L (38-126); Anion Gap 3 mmol/L; Blood Urea Nitrogen 26 mg/dL (7-17); C Reactive Protein 1.2 mg/dL (<1.0); Calcium 8.3 mg/dL (8.4-10.2); Carbon Dioxide 27 mmol/L (22-30); Chloride 102 mmol/L (98-107); Creatine Kinase 34 U/L (30-135); Glucose 206 mg/dL (74-99); LDH 1631 U/L (313-618); Non-African American GFR(CKD) >90 (>60 ml/min/1.73 sqM); Potassium 4.4 mmol/L (3.5-5.1); Sodium 132 mmol/L (137-145); Total Bilirubin 1.8 mg/dL (0.2-1.3)
[2020-06-06] MEDS: fentaNYL (PF). 1,000 MCG in SODIUM CHLORIDE 0.9% 80 ML IV SCH ×3 (05:38→21:36)
[2020-06-06 06:13] LABS: Allen Test Performed? no
[2020-06-06 06:28] LABS: Glucose,Whole Blood 253 mg/dL (75-99)
[2020-06-06] MEDS: INSULIN DETEMIR (LEVEMIR) 100 UNIT/ML SYR SQ SCH ×2 (06:41→20:03)
[2020-06-06] MEDS: INSULIN ASPART (NovoLOG) 100 UNIT/ML VIAL SQ SCH ×4 (06:41→23:42)
[2020-06-06] MEDS: LEVOTHYROXINE 75 MCG TAB PO SCH (06:41)
[2020-06-06] MEDS: methylPREDNISolone SOD SUCCI 40 MG/ML 1 ML VIAL IV SCH ×4 (06:42→23:42)
--- NOTE | 2020-06-06 07:32 | XR ---
EXAMINATION TYPE: XR chest 1V portable DATE OF EXAM: 06/06/2020 COMPARISON: 06/05/2020 HISTORY: Tube placement TECHNIQUE: Single frontal view of the chest is obtained. FINDINGS: ET and NG tube noted. There is diffuse bilateral airspace disease. Tiny effusions noted. N o sizable pneumothorax. Curvature of the spine. IMPRESSION: Diffuse bilateral airspace disease stable
[2020-06-06] MEDS: PIPERACILLIN-TAZOBACTAM 3.375 GM in SODIUM CHLORIDE 0.9% 100 ML IVPB SCH (09:10)
[2020-06-06] MEDS: CHLORHEXIDINE GLUCONATE 15 ML CUP MUCOUS MEM SCH ×2 (09:20→20:02)
[2020-06-06] MEDS: NOREPINEPHRINE 8 MG in SODIUM CHLORIDE 0.9% 250 ML IV SCH ×2 (09:20→17:15)
[2020-06-06] MEDS: SODIUM CHLORIDE 0.9% 1,000 ML IV SCH ×3 (09:20→21:39)
[2020-06-06] MEDS: PANTOPRAZOLE 40 MG/10 ML VIAL IVP SCH ×2 (09:20→20:02)
[2020-06-06] MEDS: SENNOSIDES-DOCUSATE SODIUM 1 EACH TAB PO SCH ×2 (09:20→09:27)
[2020-06-06] MEDS: ASCORBIC ACID 500 MG TAB PO SCH (09:21)
[2020-06-06] MEDS: GABAPENTIN 300 MG CAP PO SCH ×4 (09:21→20:03)
[2020-06-06] MEDS: FERROUS SULFATE 325 MG TAB PO SCH (09:21)
[2020-06-06] MEDS: ZINC SULFATE 220 MG CAP PO SCH (09:21)
[2020-06-06] MEDS: CYANOCOBALAMIN 500 MCG TAB PO SCH (09:21)
[2020-06-06] MEDS: CHOLECALCIFEROL 25 MCG (1000 IU) TABLET PO SCH (09:21)
[2020-06-06 09:35] LABS: Ferritin 409.4 ng/mL (10.0-291.0)
--- NOTE | 2020-06-06 11:18 | P.PN ---
Subjective Patient is seen in follow-up for hyponatremia. Sodium level 132 today. Intubated June 04 due to worsening respiratory distress. On low-dose Levophed. Receiving IV fluids as well as tube feeding. Nonoliguric. Vital signs are stable. On low-dose Levophed. General: The patient appeared well nourished and normally developed. HEENT: Intubated. LUNGS: Breath sounds decreased. HEART: Rate and Rhythm are regular. ABDOMEN: Soft, obese. EXTREMITITES: Trace edema. Objective - Vital Signs Vital signs: Vital Signs Temp 96.8 F L 06/06/20 04:00 Pulse 50 L 06/06/20 07:00 Resp 24 06/06/20 07:00 BP 94/49 06/06/20 07:00 Pulse Ox 90 L 06/06/20 07:00 Intake & Output 06/05/20 06/06/20 06/06/20 18:59 06:59 18:59 Intake Total 2565.979 2479.532 733.565 Output Total 475 690 160 Balance 2090.979 1789.532 573.565 Weight 134.8 kg 143.3 kg Intake: IV 1500 1500 375 Sodium Chloride 0.9% 1, 1500 1500 375 000 ml @ 125 mls/hr IV . Q8H [facility] Rx#:[id number] Intake, IV Titration 795.979 579.532 308.565 Amount Cisatracurium 200 mg In 141.377 Sodium Chloride 0.9% 180 ml @ 1 MCG/KG/MIN 7.95 mls/hr IV .Q24H [facility] Rx#: [id number] Norepinephrine 8 mg In 258 201.472 Sodium Chloride 0.9% 250 ml @ 0.05 MCG/KG/MIN 12. 819 mls/hr IV .Q20H8M [facility] Rx#:[id number] Piperacillin-Tazobactam 3 100 .375 gm In Sodium Chloride 0.9% 100 ml @ 25 mls/hr IVPB Q8HR [facility] Rx# :[id number] fentaNYL (PF). 1,000 mcg 7.95 13.817 In Sodium Chloride 0.9% 80 ml @ Per Protocol IV . Q0M [facility] Rx#:[id number] propofoL 1,000 mg In 388.652 465.715 107.093 Empty Bag 1 bag @ Titrate IV .Q0M [facility] Rx#: [id number] Tube Feeding 210 310 50 Other 60 90 Output: Urine 475 690 160 Other: Voiding Method Indwelling Catheter Indwelling Catheter ABP, PAP, CO, CI - Last Documented Arterial Blood Pressure 142/58 - Labs CBC & Chem 7: 06/06/20 04:20 06/06/20 04:20 Labs: Abnormal Lab Results - Last 24 Hours (Table) 06/05/20 06/05/20 06/05/20 Range/Units 11:58 17:01 23:37 RDW (11.5-15.5) % Plt Count (150-450) k/uL Lymphocytes # (1.0-4.8) k/uL APTT (22.0-30.0) sec D-Dimer (<0.60) mg/L FEU ABG pH (7.35-7.45) ABG pCO2 (35-45) mmHg ABG pO2 (83-108) mmHg ABG HCO3 (21-25) mmol/L ABG Total CO2 (19-24) mmol/L ABG O2 Saturation (94-97) % Sodium (137-145) mmol/L BUN (7-17) mg/dL Creatinine (0.52-1.04) mg/dL Glucose (74-99) mg/dL POC Glucose (mg/dL) 190 H 216 H 195 H (75-99) mg/dL Calcium (8.4-10.2) mg/dL Ferritin (10.0-291.0) ng/mL Total Bilirubin (0.2-1.3) mg/dL AST (14-36) U/L ALT (4-34) U/L Alkaline Phosphatase (38-126) U/L Lactate Dehydrogenase (313-618) U/L C-Reactive Protein (<1.0) mg/dL Total Protein (6.3-8.2) g/dL Albumin (3.5-5.0) g/dL 06/06/20 06/06/20 06/06/20 Range/Units 04:20 04:20 04:20 RDW 19.0 H (11.5-15.5) % Plt Count 79 L (150-450) k/uL Lymphocytes # 0.4 L (1.0-4.8) k/uL APTT 20.0 L (22.0-30.0) sec D-Dimer 1.39 H (<0.60) mg/L FEU ABG pH (7.35-7.45) ABG pCO2 (35-45) mmHg ABG pO2 (83-108) mmHg ABG HCO3 (21-25) mmol/L ABG Total CO2 (19-24) mmol/L ABG O2 Saturation (94-97) % Sodium 132 L (137-145) mmol/L BUN 26 H (7-17) mg/dL Creatinine 0.47 L (0.52-1.04) mg/dL Glucose 206 H (74-99) mg/dL POC Glucose (mg/dL) (75-99) mg/dL Calcium 8.3 L (8.4-10.2) mg/dL Ferritin 409.4 H (10.0-291.0) ng/mL Total Bilirubin 1.8 H (0.2-1.3) mg/dL AST 203 H (14-36) U/L ALT 369 H (4-34) U/L Alkaline Phosphatase 316 H (38-126) U/L Lactate Dehydrogenase 1631 H (313-618) U/L C-Reactive Protein 1.2 H (<1.0) mg/dL Total Protein 5.0 L (6.3-8.2) g/dL Albumin 2.5 L (3.5-5.0) g/dL 06/06/20 06/06/20 Range/Units 05:11 06:27 RDW (11.5-15.5) % Plt Count (150-450) k/uL Lymphocytes # (1.0-4.8) k/uL APTT (22.0-30.0) sec D-Dimer (<0.60) mg/L FEU ABG pH 7.30 L (7.35-7.45) ABG pCO2 56 H (35-45) mmHg ABG pO2 69 L (83-108) mmHg ABG HCO3 27 H (21-25) mmol/L ABG Total CO2 29 H (19-24) mmol/L ABG O2 Saturation 92.6 L (94-97) % Sodium (137-145) mmol/L BUN (7-17) mg/dL Creatinine (0.52-1.04) mg/dL Glucose (74-99) mg/dL POC Glucose (mg/dL) 253 H (75-99) mg/dL Calcium (8.4-10.2) mg/dL Ferritin (10.0-291.0) ng/mL Total Bilirubin (0.2-1.3) mg/dL AST (14-36) U/L ALT (4-34) U/L Alkaline Phosphatase (38-126) U/L Lactate Dehydrogenase (313-618) U/L C-Reactive Protein (<1.0) mg/dL Total Protein (6.3-8.2) g/dL Albumin (3.5-5.0) g/dL Assessment and Plan Plan: Assessment: 1. Hyponatremia. Partially due to hyperglycemia. Blood sugars better. Sodium level 132 today. 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 TSH a little low. Urine osmolality 1047 and urine sodium less than 10. 2. COVID-19 pneumonia. 3. Diabetes mellitus. 4. Acute hypoxic respiratory failure. On 70% FiO2. Plan: Maintain IV fluids and tube feeding. Wean Levophed and FiO2. Continue to monitor renal function and urine output. Repeat electrolytes in the morning.
--- NOTE | 2020-06-06 11:29 | P.PN ---
Subjective Progress Note Date: 06/06/20 Principal diagnosis: COVID-19 pneumonia This is a 59-year-old white female patient was initially admitted to the hospital on 05/04/2020 with a COVID-19 pneumonia. Patient received Remdesivir, convalescent plasma and subsequently related to increased oxygen needs also received Tocilizumab. She had been on steroids since admission. In the last 2 weeks patient required BiPAP support, and in last several days has become quite BiPAP dependent. She developed respiratory fatigue, worsening hypoxia and was emergently transferred to the intensive care unit yesterday on 06/04/2020 and intubated and placed on mechanical ventilator. She is currently on assist control mode of ventilation with a rate of 24, tidal vitamins 450, FiO2 of 80% and PEEP of 15, this morning's blood gas shows pO2 of 90, pCO2 of 42, and pH of 7.44. She is currently on 0.9 normal saline at 125, norepinephrine is at 0.02 mics per kilo per minute, Diprivan and is at 60 mics per kilo per minute, and f entanyl drip is at 0.5 mics per kilo per hour. Nimbex is at 1 mg/kg/m. Today's chest x-ray shows patchy infiltrates throughout both lung hernandez with interval progression. Her lab work shows white blood cell count of 3.9, hemoglobin of 11.3, platelet count is 72, d-dimer is 1.39, sodium is 131, potassium is 3.7, chloride is 100, CO2 is 28, BUN of 26, creatinine 0.40, total bilirubin is 1.9, her liver enzymes have increased with AST at 98, ALT at 212, alkaline phosphatase at 245, today's LDH is 1412, relatively stable compared to previous value, and CRP is at 0.7. Pro-calcitonin level from 06/02/2020 was negative at 0.13. After the patient was intubated for TPN was discontinued and patient was placed on tube feedings with vital high-protein at 10 ML per hour, and this will be increased to goal per RD recommendations. Currently in terms of treatment she remains on Solu-Medrol at 40 mg every 6 hours, she is on empiric antibiotic coverage in the form of Zosyn, cultures have been negative. On 06/06/2020 patient is seen in follow-up in the intensive care unit. Patient was intubated and placed on mechanical ventilator on 06/04/2020, she remains sedated, and intubated today she is on pressure control mode of ventilation, with inspiratory pressure of 20, inspiratory time of 0.9, rate of 24, FiO2 of 70%, and PEEP of 15, this morning's blood gas shows pO2 of 69, pCO2 56, and pH of 7.30. She is currently sedated with Diprivan at 50 mics per kilo per minute, and fentanyl drip is at 1 mics per kilo per hour, no maintenance IV fluids, and Norepinephrine is currently infusing at 0.03 mL's per hour, she is on vital high-protein at 25 with a goal of 25 and standard water flushes 30 ml/30 ml. no paralytics. Today's chest x-ray has been reviewed showing diffuse bilateral airspace disease which is stable in appearance. Today's labs have been reviewed, white blood cell, 5.6, hemoglobin is 12.2, platelet count is 79, lymphocyte count of 0.4, d-dimer is 1.39, serum sodium is 132, potassium is 4.4, chloride is 102, CO2 is 27, B1 is 26 and creatinine 0.47, AST is 203, ALT 369, LDH is increased at 1631 and CRP is 1.2, her pro-calcitonin level came back negative at 0.13. Blood cultures have been negative. We can stop her antibiotics. She remains on IV Solu-Medrol 40 mg every 6 hours, IV fluids in at 125 ML per hour. Hemodynamically patient is requiring small dose of norep inephrine, producing adequate urine in the order of 30-60 ML per hour. Objective - Vital Signs Vital signs: Vital Signs Temp 96.8 F L 06/06/20 04:00 Pulse 50 L 06/06/20 07:00 Resp 24 06/06/20 07:00 BP 94/49 06/06/20 07:00 Pulse Ox 90 L 06/06/20 07:00 Intake & Output 06/05/20 06/06/20 06/06/20 18:59 06:59 18:59 Intake Total 2565.979 2479.532 458.565 Output Total 475 690 60 Balance 2090.979 1789.532 398.565 Weight 134.8 kg 143.3 kg Intake: IV 1500 1500 125 Sodium Chloride 0.9% 1, 1500 1500 125 000 ml @ 125 mls/hr IV . Q8H [facility] Rx#:[id number] Intake, IV Titration 795.979 579.532 308.565 Amount Cisatracurium 200 mg In 141.377 Sodium Chloride 0.9% 180 ml @ 1 MCG/KG/MIN 7.95 mls/hr IV .Q24H [facility] Rx#: [id number] Norepinephrine 8 mg In 258 201.472 Sodium Chloride 0.9% 250 ml @ 0.05 MCG/KG/MIN 12. 819 mls/hr IV .Q20H8M [facility] Rx#:[id number] Piperacillin-Tazobactam 3 100 .375 gm In Sodium Chloride 0.9% 100 ml @ 25 mls/hr IVPB Q8HR [facility] Rx# :[id number] fentaNYL (PF). 1,000 mcg 7.95 13.817 In Sodium Chloride 0.9% 80 ml @ Per Protocol IV . Q0M [facility] Rx#:[id number] propofoL 1,000 mg In 388.652 465.715 107.093 Empty Bag 1 bag @ Titrate IV .Q0M [facility]I Rx#: [id number] Tube Feeding 210 310 25 Other 60 90 Output: Urine 475 690 60 Other: Voiding Method Indwelling Catheter Indwelling Catheter ABP, PAP, CO, CI - Last Documented Arterial Blood Pressure 142/58 - Exam GENERAL EXAM: sedated, intubated, 59-year-old white female, on pressure control mode of ventilation with FiO2 of 70% and PEEP of 15, comfortable in no apparent distress. HEAD: Normocephalic/atraumatic. EYES: Normal reaction of pupils, equal size. Conjunctiva pink, sclera white. NOSE: Clear with pink turbinates. Skin breakdown from prolonged BiPAP support on the bridge of the nose THROAT: No erythema or exudates. NECK: No masses, no JVD, no thyroid enlargement, no adenopathy. CHEST: No chest wall deformity. Symmetrical expansion. LUNGS: Equal air entry with no crackles, wheeze, rhonchi or dullness. CVS: Regular rate and rhythm, normal S1 and S2, no gallops, no murmurs, no rubs ABDOMEN: Soft, nontender. No hepatosplenomegaly, normal bowel sounds, no guarding or rigidity. EXTREMITIES: No clubbing, no edema, no cyanosis, 2+ pulses and upper and lower extremities. MUSCULOSKELETAL: Muscle strength and tone normal. SPINE: No scoliosis or deformity SKIN: No rashes CENTRAL NERVOUS SYSTEM: Sedated, intubated No focal deficits, tone is normal in all 4 extremities. - Labs CBC & Chem 7: 06/06/20 04:06/06/20 04:20 Labs: Abnormal Lab Results - Last 24 Hours (Table) 06/05/20 06/05/20 06/05/20 Range/Units 11:58 17:01 23:37 RDW (11.5-15.5) % Plt Count (150-450) k/uL Lymphocytes # (1.0-4.8) k/uL APTT (22.0-30.0) sec D-Dimer (<0.60) mg/L FEU ABG pH (7.35-7.45) ABG pCO2 (35-45) mmHg ABG pO2 (83-108) mmHg ABG HCO3 (21-25) mmol/L ABG Total CO2 (19-24) mmol/L ABG O2 Saturation (94-97) % Sodium (137-145) mmol/L BUN (7-17) mg/dL Creatinine (0.52-1.04) mg/dL Glucose (74-99) mg/dL POC Glucose (mg/dL) 190 H 216 H 195 H (75-99) mg/dL Calcium (8.4-10.2) mg/dL Ferritin (10.0-291.0) ng/mL Total Bilirubin (0.2-1.3) mg/dL AST (14-36) U/L ALT (4-34) U/L Alkaline Phosphatase (38-126) U/L Lactate Dehydrogenase (313-618) U/L C-Reactive Protein (<1.0) mg/dL Total Protein (6.3-8.2) g/dL Albumin (3.5-5.0) g/dL 06/06/20 06/06/20 06/06/20 Range/Units 04:20 04:20 04:20 RDW 19.0 H (11.5-15.5) % Plt Count 79 L (150-450) k/uL Lymphocytes # 0.4 L (1.0-4.8) k/uL APTT 20.0 L (22.0-30.0) sec D-Dimer 1.39 H (<0.60) mg/L FEU ABG pH (7.35-7.45) ABG pCO2 (35-45) mmHg ABG pO2 (83-108) mmHg ABG HCO3 (21-25) mmol/L ABG Total CO2 (19-24) mmol/L ABG O2 Saturation (94-97) % Sodium 132 L (137-145) mmol/L BUN 26 H (7-17) mg/dL Creatinine 0.47 L (0.52-1.04) mg/dL Glucose 206 H (74-99) mg/dL POC Glucose (mg/dL) (75-99) mg/dL Calcium 8.3 L (8.4-10.2) mg/dL Ferritin 409.4 H (10.0-291.0) ng/mL Total Bilirubin 1.8 H (0.2-1.3) mg/dL AST 203 H (14-36) U/L ALT 369 H (4-34) U/L Alkaline Phosphatase 316 H (38-126) U/L Lactate Dehydrogenase 1631 H (313-618) U/L C-Reactive Protein 1.2 H (<1.0) mg/dL Total Protein 5.0 L (6.3-8.2) g/dL Albumin 2.5 L (3.5-5.0) g/dL 06/06/20 06/06/20 Range/Units 05:11 06:27 RDW (11.5-15.5) % Plt Count (150-450) k/uL Lymphocytes # (1.0-4.8) k/uL APTT (22.0-30.0) sec D-Dimer (<0.60) mg/L FEU ABG pH 7.30 L (7.35-7.45) ABG pCO2 56 H (35-45) mmHg ABG pO2 69 L (83-108) mmHg ABG HCO3 27 H (21-25) mmol/L ABG Total CO2 29 H (19-24) mmol/L ABG O2 Saturation 92.6 L (94-97) % Sodium (137-145) mmol/L BUN (7-17) mg/dL Creatinine (0.52-1.04) mg/dL Glucose (74-99) mg/dL POC Glucose (mg/dL) 253 H (75-99) mg/dL Calcium (8.4-10.2) mg/dL Ferritin (10.0-291.0) ng/mL Total Bilirubin (0.2-1.3) mg/dL AST (14-36) U/L ALT (4-34) U/L Alkaline Phosphatase (38-126) U/L Lactate Dehydrogenase (313-618) U/L C-Reactive Protein (<1.0) mg/dL Total Protein (6.3-8.2) g/dL Albumin (3.5-5.0) g/dL Assessment and Plan Plan: Assessment: #1. Acute hypoxic respiratory failure related to COVID-19 pneumonia, status post Remdesivir, convalescent plasma, and patient received Tocilizumab for progressive hypoxia and dyspnea. Required prolonged BiPAP support, intubated and placed on mechanical ventilator on 06/04/2020 #2. Neutropenia, low platelet count, possibility of sepsis was considered and patient was placed on Zosyn, blood cultures and procalcitonin remain negative #3. Increased d-dimer and inflammatory markers related to acute COVID-19 pneumonia #4. Hyponatremia, multifactorial possibly related to hyperglycemia, SIADH, hypothyroidism and poor oral intake and hypoalbuminemia. Improving on today's labs #5. Diabetes mellitus type 2 #6. Obesity with a BMI of 46.5 kg/m #7. Hypertension #8. Hyperlipidemia #9. Hypothyroidism Plan: Continue pressure control mode of ventilation, current settings, FiO2 70%, and PEEP of 15 Today's chest x-ray shows no significant change in the appearance of bilateral infiltrates Increase IV fluids to 125 ML per hour, wean off norepinephrine Procalcitonin reviewed, blood cultures remain negative, no fever, we will discontinue Zosyn Continue tube feedings GI and DVT prophylaxis, Today's lab work has been reviewed, platelet count is improving, d-dimer is 1.39 Discussed case with hematology, will use Lovenox 40 mg SC after surgical procedure Gen. surgery consultation has been placed for tracheostomy and PEG tube placement and this will likely take place on Wednesday on 06/07/2020 I performed a history & physical examination of the patient and discussed their management with my nurse practitioner, Chela Lopez. I reviewed the nurse practitioner's note and agree with the documented findings and plan of care. Lung sounds are positive for diminished breath sounds with bilateral crackles The findings and the impression was discussed with the patient. I attest to the documentation by the nurse practitioner. Time with Patient: Greater than 30
[2020-06-06 11:44] LABS: Glucose,Whole Blood 287 mg/dL (75-99)
--- NOTE | 2020-06-06 13:00 | P.PN ---
Subjective Progress Note Date: 06/06/20 Principal diagnosis: Sepsis, Respiratory failure, DIC Care of ICU, Labs improved as far as cbc however, LFTs increased. Coags are stable and discussed with Pulmonary prophylaxic AC therapy ok with lovenox since HIT antibodies negative and platelets are now greater than 50K. Objective - Vital Signs Vital signs: Vital Signs Temp 96.8 F L 06/06/20 08:00 Pulse 56 L 06/06/20 11:00 Resp 24 06/06/20 11:00 BP 105/51 06/06/20 11:00 Pulse Ox 89 L 06/06/20 11:00 Intake & Output 06/05/20 06/06/20 06/06/20 18:59 06:59 18:59 Intake Total 2565.979 2479.532 958.389 Output Total 475 690 190 Balance 2090.979 1789.532 768.389 Weight 134.8 kg 143.3 kg Intake: IV 1500 1500 500 Sodium Chloride 0.9% 1, 1500 1500 500 000 ml @ 125 mls/hr IV . Q8H [facility] Rx#:[id number] Intake, IV Titration 795.979 579.532 408.389 Amount Cisatracurium 200 mg In 141.377 Sodium Chloride 0.9% 180 ml @ 1 MCG/KG/MIN 7.95 mls/hr IV .Q24H [facility] Rx#: [id number] Norepinephrine 8 mg In 258 201.472 Sodium Chloride 0.9% 250 ml @ 0.05 MCG/KG/MIN 12. 819 mls/hr IV .Q20H8M [facility] Rx#:[id number] Piperacillin-Tazobactam 3 100 .375 gm In Sodium Chloride 0.9% 100 ml @ 25 mls/hr IVPB Q8HR [facility] Rx# :[id number] fentaNYL (PF). 1,000 mcg 7.95 13.817 6.917 In Sodium Chloride 0.9% 80 ml @ Per Protocol IV . Q0M [facility] Rx#:[id number] propofoL 1,000 mg In 388.652 465.715 200.000 Empty Bag 1 bag @ Titrate IV .Q0M [facility] Rx#: [id number] Tube Feeding 210 310 50 Other 60 90 Output: Urine 475 690 190 Other: Voiding Method Indwelling Catheter Indwelling Catheter Indwelling Catheter ABP, PAP, CO, CI - Last Documented Arterial Blood Pressure 97/49 - Exam - Constitutional Intubated - EENT - Respiratory Respiratory: bilateral: diminished, increased effort - Cardiovascular Heart sounds: irr tach Peripheral Edema: bilateral: Trace - Neurologic Neurologic: ORLIN - Musculoskeletal Musculoskeletal: orlin - Labs CBC & Chem 7: 06/06/20 04:20 06/06/20 04:20 Labs: Abnormal Lab Results - Last 24 Hours (Table) 06/05/20 06/05/20 06/06/20 Range/Units 17:01 23:37 04:20 RDW (11.5-15.5) % Plt Count (150-450) k/uL Lymphocytes # (1.0-4.8) k/uL APTT 20.0 L (22.0-30.0) sec D-Dimer 1.39 H (<0.60) mg/L FEU ABG pH (7.35-7.45) ABG pCO2 (35-45) mmHg ABG pO2 (83-108) mmHg ABG HCO3 (21-25) mmol/L ABG Total CO2 (19-24) mmol/L ABG O2 Saturation (94-97) % Sodium (137-145) mmol/L BUN (7-17) mg/dL Creatinine (0.52-1.04) mg/dL Glucose (74-99) mg/dL POC Glucose (mg/dL) 216 H 195 H (75-99) mg/dL Calcium (8.4-10.2) mg/dL Ferritin (10.0-291.0) ng/mL Total Bilirubin (0.2-1.3) mg/dL AST (14-36) U/L ALT (4-34) U/L Alkaline Phosphatase (38-126) U/L Lactate Dehydrogenase (313-618) U/L C-Reactive Protein (<1.0) mg/dL Total Protein (6.3-8.2) g/dL Albumin (3.5-5.0) g/dL 06/06/20 06/06/20 06/06/20 Range/Units 04:20 04:20 05:11 RDW 19.0 H (11.5-15.5) % Plt Count 79 L (150-450) k/uL Lymphocytes # 0.4 L (1.0-4.8) k/uL APTT (22.0-30.0) sec D-Dimer (<0.60) mg/L FEU ABG pH 7.30 L (7.35-7.45) ABG pCO2 56 H (35-45) mmHg ABG pO2 69 L (83-108) mmHg ABG HCO3 27 H (21-25) mmol/L ABG Total CO2 29 H (19-24) mmol/L ABG O2 Saturation 92.6 L (94-97) % Sodium 132 L (137-145) mmol/L BUN 26 H (7-17) mg/dL Creatinine 0.47 L (0.52-1.04) mg/dL Glucose 206 H (74-99) mg/dL POC Glucose (mg/dL) (75-99) mg/dL Calcium 8.3 L (8.4-10.2) mg/dL Ferritin 409.4 H (10.0-291.0) ng/mL Total Bilirubin 1.8 H (0.2-1.3) mg/dL AST 203 H (14-36) U/L ALT 369 H (4-34) U/L Alkaline Phosphatase 316 H (38-126) U/L Lactate Dehydrogenase 1631 H (313-618) U/L C-Reactive Protein 1.2 H (<1.0) mg/dL Total Protein 5.0 L (6.3-8.2) g/dL Albumin 2.5 L (3.5-5.0) g/dL 06/06/20 06/06/20 Range/Units 06:27 11:42 RDW (11.5-15.5) % Plt Count (150-450) k/uL Lymphocytes # (1.0-4.8) k/uL APTT (22.0-30.0) sec D-Dimer (<0.60) mg/L FEU ABG pH (7.35-7.45) ABG pCO2 (35-45) mmHg ABG pO2 (83-108) mmHg ABG HCO3 (21-25) mmol/L ABG Total CO2 (19-24) mmol/L ABG O2 Saturation (94-97) % Sodium (137-145) mmol/L BUN (7-17) mg/dL Creatinine (0.52-1.04) mg/dL Glucose (74-99) mg/dL POC Glucose (mg/dL) 253 H 287 H (75-99) mg/dL Calcium (8.4-10.2) mg/dL Ferritin (10.0-291.0) ng/mL Total Bilirubin (0.2-1.3) mg/dL AST (14-36) U/L ALT (4-34) U/L Alkaline Phosphatase (38-126) U/L Lactate Dehydrogenase (313-618) U/L C-Reactive Protein (<1.0) mg/dL Total Protein (6.3-8.2) g/dL Albumin (3.5-5.0) g/dL Assessment and Plan Plan: - Imaging and Cardiology Chest x-ray: report reviewed Assessment and Plan Thrombocytopenia: ITP versus DIC (disseminated intravascular coagulation) Mild DIC - Improved Continue to monitor Coags CBC pending today - Resolving Anticoagulation ok with platelets greater than 59K and coags stable HIT antibodies neg - Lovenox ok Increased LFTs: - Likely secondary to medication and Illness: - Monitor daily - Ultrasound reviewed, no obstruction noted Coronavirus infection - Per Pulmonology and ID - Best Supportive Care Acute Hypoxia Respiratory Failure - now intubated on ventilator - Worsening Plan: CBC remains stable, will monitor daily Continue care per ICU Discussed with Pulm, Lovenox prophylaxis ok Physician attest: I have completed the full history and physical and developed the impression and plan, agree with dictation. Dictated as a ascribe.
[2020-06-06] MEDS: ALBUTEROL HFA INHALER INHALATION PRN ×2 (15:11→19:14)
--- NOTE | 2020-06-06 15:13 | P.PN ---
Subjective Progress Note Date: 06/06/20 CHIEF COMPLAINT: COVID-19 pneumonia HISTORY OF PRESENT ILLNESS: Patient is in the ICU intubated and sedated. Surgery is following for trach and PEG tube placement. Patient is afebrile. WBC 5.6. Platelets 79 sodium 132 Consent was obtained for trach and PEG placement for tomorrow PHYSICAL EXAM: VITAL SIGNS: Reviewed. GENERAL: Well-developed in no acute distress. HEENT: No sclera icterus. Extraocular movements grossly intact. Moist buccal mucosa. Head is atraumatic, normocephalic. ABDOMEN: Soft. Nondistended. Nontender. NEUROLOGIC: Intubated and sedated ASSESSMENT: 1. Acute hypoxic respiratory failure secondary to COVID-19 pneumonia 2. Severe protein calorie malnutrition 3. Hyponatremia followed by nephrology 4. Thrombocytopenia followed by hematology PLAN: -Patient is scheduled for tracheostomy and PEG tube placement on 06/07/[address] Christy -Hold tube feedings after midnight -Continue ICU management -Continue supportive care Physician Machine Operator Slitter Technician note has been reviewed by physician. Signing provider agrees with the documented findings, assessment, and plan of care. Objective - Vital Signs Vital signs: Vital Signs Temp 96.8 F L 06/06/20 08:00 Pulse 53 L 06/06/20 14:00 Resp 24 06/06/20 14:00 BP 123/63 06/06/20 14:00 Pulse Ox 89 L 06/06/20 14:00 Intake & Output 06/05/20 06/06/20 06/06/20 18:59 06:59 18:59 Intake Total 2565.979 2479.532 1569.942 Output Total 475 690 315 Balance 2090.979 2644.028 4489.942 Weight 134.8 kg 143.3 kg Intake: IV 1500 1500 1000 Sodium Chloride 0.9% 1, 1500 1500 1000 000 ml @ 125 mls/hr IV . Q8H [facility] Rx#:[id number] Intake, IV Titration 795.979 579.532 494.942 Amount Cisatracurium 200 mg In 141.377 Sodium Chloride 0.9% 180 ml @ 1 MCG/KG/MIN 7.95 mls/hr IV .Q24H [facility] Rx#: [id number] Norepinephrine 8 mg In 258 201.472 Sodium Chloride 0.9% 250 ml @ 0.05 MCG/KG/MIN 12. 819 mls/hr IV .Q20H8M [facility] Rx#:[id number] Piperacillin-Tazobactam 3 100 .375 gm In Sodium Chloride 0.9% 100 ml @ 25 mls/hr IVPB Q8HR [facility] Rx# :[id number] fentaNYL (PF). 1,000 mcg 7.95 13.817 6.917 In Sodium Chloride 0.9% 80 ml @ Per Protocol IV . Q0M [facility] Rx#:[id number] propofoL 1,000 mg In 388.652 465.715 286.553 Empty Bag 1 bag @ Titrate IV .Q0M [facility] Rx#: [id number] Tube Feeding 210 310 75 Other 60 90 Output: Urine 475 690 315 Other: Voiding Method Indwelling Catheter Indwelling Catheter Indwelling Catheter ABP, PAP, CO, CI - Last Documented Arterial Blood Pressure 120/60 - Labs CBC & Chem 7: 06/06/20 04:20 06/06/20 04:20 Labs: Abnormal Lab Results - Last 24 Hours (Table) 06/05/20 06/05/20 06/06/20 Range/Units 17:01 23:37 04:20 RDW (11.5-15.5) % Plt Count (150-450) k/uL Lymphocytes # (1.0-4.8) k/uL APTT 20.0 L (22.0-30.0) sec D-Dimer 1.39 H (<0.60) mg/L FEU ABG pH (7.35-7.45) ABG pCO2 (35-45) mmHg ABG pO2 (83-108) mmHg ABG HCO3 (21-25) mmol/L ABG Total CO2 (19-24) mmol/L ABG O2 Saturation (94-97) % Sodium (137-145) mmol/L BUN (7-17) mg/dL Creatinine (0.52-1.04) mg/dL Glucose (74-99) mg/dL POC Glucose (mg/dL) 216 H 195 H (75-99) mg/dL Calcium (8.4-10.2) mg/dL Ferritin (10.0-291.0) ng/mL Total Bilirubin (0.2-1.3) mg/dL AST (14-36) U/L ALT (4-34) U/L Alkaline Phosphatase (38-126) U/L Lactate Dehydrogenase (313-618) U/L C-Reactive Protein (<1.0) mg/dL Total Protein (6.3-8.2) g/dL Albumin (3.5-5.0) g/dL 06/06/20 06/06/20 06/06/20 Range/Units 04:20 04:20 05:11 RDW 19.0 H (11.5-15.5) % Plt Count 79 L (150-450) k/uL Lymphocytes # 0.4 L (1.0-4.8) k/uL APTT (22.0-30.0) sec D-Dimer (<0.60) mg/L FEU ABG pH 7.30 L (7.35-7.45) ABG pCO2 56 H (35-45) mmHg ABG pO2 69 L (83-108) mmHg ABG HCO3 27 H (21-25) mmol/L ABG Total CO2 29 H (19-24) mmol/L ABG O2 Saturation 92.6 L (94-97) % Sodium 132 L (137-145) mmol/L BUN 26 H (7-17) mg/dL Creatinine 0.47 L (0.52-1.04) mg/dL Glucose 206 H (74-99) mg/dL POC Glucose (mg/dL) (75-99) mg/dL Calcium 8.3 L (8.4-10.2) mg/dL Ferritin 409.4 H (10.0-291.0) ng/mL Total Bilirubin 1.8 H (0.2-1.3) mg/dL AST 203 H (14-36) U/L ALT 369 H (4-34) U/L Alkaline Phosphatase 316 H (38-126) U/L Lactate Dehydrogenase 1631 H (313-618) U/L C-Reactive Protein 1.2 H (<1.0) mg/dL Total Protein 5.0 L (6.3-8.2) g/dL Albumin 2.5 L (3.5-5.0) g/dL 06/06/20 06/06/20 Range/Units 06:27 11:42 RDW (11.5-15.5) % Plt Count (150-450) k/uL Lymphocytes # (1.0-4.8) k/uL APTT (22.0-30.0) sec D-Dimer (<0.60) mg/L FEU ABG pH (7.35-7.45) ABG pCO2 (35-45) mmHg ABG pO2 (83-108) mmHg ABG HCO3 (21-25) mmol/L ABG Total CO2 (19-24) mmol/L ABG O2 Saturation (94-97) % Sodium (137-145) mmol/L BUN (7-17) mg/dL Creatinine (0.52-1.04) mg/dL Glucose (74-99) mg/dL POC Glucose (mg/dL) 253 H 287 H (75-99) mg/dL Calcium (8.4-10.2) mg/dL Ferritin (10.0-291.0) ng/mL Total Bilirubin (0.2-1.3) mg/dL AST (14-36) U/L ALT (4-34) U/L Alkaline Phosphatase (38-126) U/L Lactate Dehydrogenase (313-618) U/L C-Reactive Protein (<1.0) mg/dL Total Protein (6.3-8.2) g/dL Albumin (3.5-5.0) g/dL
[2020-06-06 17:40] LABS: Glucose,Whole Blood 291 mg/dL (75-99)
--- NOTE | 2020-06-06 21:32 | P.PN ---
Subjective This is a pleasant 59 years old female with past medical history of hypertension, hyperlipidemia, hyperthyroidism, type 2 diabetes mellitus, GERD, G I bleed. Presents with respiratory symptoms secondary to acute Covid pulmonary infection on both sides with acute hypoxic respiratory failure needing BiPAP machine individually patient was intubated on 06/04. Currently patient remains in the ICU intubated and sedated with the pulmonary/critical care team following the patient closely. They had already consulted surgery team and the planned for her to go for PEG tube and tracheostomy tomorrow patient remains on Solu-Medrol 60 mg, vitamin C, D and zinc. Protonix oral 40 twice a day and Levemir insulin 35 units twice a day. Objective - Vital Signs Vital signs: Vital Signs Temp 96.8 F L 06/06/20 08:00 Pulse 57 L 06/06/20 19:00 Resp 24 06/06/20 19:00 BP 114/56 06/06/20 19:00 Pulse Ox 90 L 06/06/20 19:00 Intake & Output 06/06/20 06/06/20 06/07/20 06:59 18:59 06:59 Intake Total 2479.532 2028.914 125 Output Total 690 415 40 Balance 7918.374 4616.914 85 Weight 143.3 kg Intake: IV 1500 1275 125 Sodium Chloride 0.9% 1, 1500 1275 125 000 ml @ 125 mls/hr IV . Q8H YESSI Rx#:[id number] Intake, IV Titration 579.532 653.914 Amount Norepinephrine 8 mg In 260.444 Sodium Chloride 0.9% 250 ml @ 0.05 MCG/KG/MIN 12. 819 mls/hr IV .Q20H8M YESSI Rx#:[id number] Piperacillin-Tazobactam 3 100 .375 gm In Sodium Chloride 0.9% 100 ml @ 25 mls/hr IVPB Q8HR YESSI Rx# :[id number] fentaNYL (PF). 1,000 mcg 13.817 6.917 In Sodium Chloride 0.9% 80 ml @ Per Protocol IV . Q0M YESSI Rx#:[id number] propofoL 1,000 mg In 465.715 386.553 Empty Bag 1 bag @ Titrate IV .Q0M YESSI Rx#: [id number] Tube Feeding 310 100 Other 90 Output: Urine 690 415 40 Other: Voiding Method Indwelling Catheter Indwelling Catheter ABP, PAP, CO, CI - Last Documented Arterial Blood Pressure 106/57 - Exam -GENERAL: The patient is intubated and sedated HEENT: Pupils are round and equally reacting to light. EOMI. No scleral icterus. No conjunctival pallor. Normocephalic, atraumatic. No pharyngeal erythema. No thyromegaly. CARDIOVASCULAR: S1 and S2 present. No murmurs, rubs, or gallops. PULMONARY: Chest is clear to auscultation, no wheezing or crackles. ABDOMEN: Soft, nontender, nondistended, normoactive bowel sounds. No palpable organomegaly. MUSCULOSKELETAL: No joint swelling or deformity. EXTREMITIES: No cyanosis, clubbing, or pedal edema. NEUROLOGICAL: Gross neurological examination did not reveal any focal deficits. SKIN: No rashes. no petechiae. - Labs CBC & Chem 7: 06/06/20 04:20 06/06/20 04:20 Labs: Abnormal Lab Results - Last 24 Hours (Table) 06/05/20 06/06/20 06/06/20 Range/Units 23:37 04:20 04:20 RDW 19.0 H (11.5-15.5) % Plt Count 79 L (150-450) k/uL Lymphocytes # 0.4 L (1.0-4.8) k/uL APTT 20.0 L (22.0-30.0) sec D-Dimer 1.39 H (<0.60) mg/L FEU ABG pH (7.35-7.45) ABG pCO2 (35-45) mmHg ABG pO2 (83-108) mmHg ABG HCO3 (21-25) mmol/L ABG Total CO2 (19-24) mmol/L ABG O2 Saturation (94-97) % Sodium (137-145) mmol/L BUN (7-17) mg/dL Creatinine (0.52-1.04) mg/dL Glucose (74-99) mg/dL POC Glucose (mg/dL) 195 H (75-99) mg/dL Calcium (8.4-10.2) mg/dL Ferritin (10.0-291.0) ng/mL Total Bilirubin (0.2-1.3) mg/dL AST (14-36) U/L ALT (4-34) U/L Alkaline Phosphatase (38-126) U/L Lactate Dehydrogenase (313-618) U/L C-Reactive Protein (<1.0) mg/dL Total Protein (6.3-8.2) g/dL Albumin (3.5-5.0) g/dL 06/06/20 06/06/20 06/06/20 Range/Units 04:20 05:11 06:27 RDW (11.5-15.5) % Plt Count (150-450) k/uL Lymphocytes # (1.0-4.8) k/uL APTT (22.0-30.0) sec D-Dimer (<0.60) mg/L FEU ABG pH 7.30 L (7.35-7.45) ABG pCO2 56 H (35-45) mmHg ABG pO2 69 L (83-108) mmHg ABG HCO3 27 H (21-25) mmol/L ABG Total CO2 29 H (19-24) mmol/L ABG O2 Saturation 92.6 L (94-97) % Sodium 132 L (137-145) mmol/L BUN 26 H (7-17) mg/dL Creatinine 0.47 L (0.52-1.04) mg/dL Glucose 206 H (74-99) mg/dL POC Glucose (mg/dL) 253 H (75-99) mg/dL Calcium 8.3 L (8.4-10.2) mg/dL Ferritin 409.4 H (10.0-291.0) ng/mL Total Bilirubin 1.8 H (0.2-1.3) mg/dL AST 203 H (14-36) U/L ALT 369 H (4-34) U/L Alkaline Phosphatase 316 H (38-126) U/L Lactate Dehydrogenase 1631 H (313-618) U/L C-Reactive Protein 1.2 H (<1.0) mg/dL Total Protein 5.0 L (6.3-8.2) g/dL Albumin 2.5 L (3.5-5.0) g/dL 06/06/20 06/06/20 Range/Units 11:42 17:38 RDW (11.5-15.5) % Plt Count (150-450) k/uL Lymphocytes # (1.0-4.8) k/uL APTT (22.0-30.0) sec D-Dimer (<0.60) mg/L FEU ABG pH (7.35-7.45) ABG pCO2 (35-45) mmHg ABG pO2 (83-108) mmHg ABG HCO3 (21-25) mmol/L ABG Total CO2 (19-24) mmol/L ABG O2 Saturation (94-97) % Sodium (137-145) mmol/L BUN (7-17) mg/dL Creatinine (0.52-1.04) mg/dL Glucose (74-99) mg/dL POC Glucose (mg/dL) 287 H 291 H (75-99) mg/dL Calcium (8.4-10.2) mg/dL Ferritin (10.0-291.0) ng/mL Total Bilirubin (0.2-1.3) mg/dL AST (14-36) U/L ALT (4-34) U/L Alkaline Phosphatase (38-126) U/L Lactate Dehydrogenase (313-618) U/L C-Reactive Protein (<1.0) mg/dL Total Protein (6.3-8.2) g/dL Albumin (3.5-5.0) g/dL Assessment and Plan Assessment: Acute bilateral covid pneumonia Acute hypoxic respiratory failure, requiring intubation and mechanical ventilation on 06/06.Patient is going for tracheotomy and PEG tomorrow Increased inflammatory markers biytopenia, with low WBC and platelets count, could be related to Covid infection. WBC improved now and now only thrombocytopenia Type 2 diabetes mellitus Hypertension Hyperlipidemia Hyperthyroidism Current History of GI bleed Morbid obesity with BMI of 47 Plan: This is a pleasant 59 years old female who presents with Covid and hypoxia. Continue with steroids, zinc and vitamin C. hold Lovenox due to platelets less than 50 K and monitor count. May resume after surgery. Hematology team Continue with vent management as per pulmonary/critical care team will follow the case closely Infectious and surgery team are following the case as well. Labs and medication were reviewed.. Continue same treatment. Continue with sym ptomatic treatment. Resume home medication. Monitor lytes and vitals. DVT and GI prophylaxis. Further recommendations as per clinical course of the patient DVT prophylaxis: Subcutaneous Lovenox, on hold due to thrombocytopenia GI Prophylaxis: Pepcid Prognosis is guarded
[2020-06-06 23:39] LABS: Glucose,Whole Blood 272 mg/dL (75-99)
[2020-06-07 04:44] LABS: ABG Base Excess -0.6 mmol/L; ABG HCO3 27 mmol/L (21-25); ABG PCO2 63 mmHg (35-45); ABG PH 7.24 (7.35-7.45); ABG PO2 70 mmHg (83-108); ABG TCO2 29 mmol/L (19-24); Allen Test Performed? no
[2020-06-07] MEDS: fentaNYL (PF). 1,000 MCG in SODIUM CHLORIDE 0.9% 80 ML IV SCH ×3 (04:55→19:56)
[2020-06-07] MEDS: SODIUM CHLORIDE 0.9% 1,000 ML IV SCH ×3 (04:59→19:38)
[2020-06-07 05:59] LABS: Glucose,Whole Blood 274 mg/dL (75-99)
[2020-06-07 06:00] LABS: ALT 441 U/L (4-34); AST 175 U/L (14-36); African American GFR (CKD) >90 (>60 ml/min/1.73 sqM); Albumin 2.4 g/dL (3.5-5.0); Alkaline Phosphatase 358 U/L (38-126); Anion Gap 2 mmol/L; Blood Urea Nitrogen 30 mg/dL (7-17); Calcium 8.6 mg/dL (8.4-10.2); Carbon Dioxide 27 mmol/L (22-30); Chloride 101 mmol/L (98-107); Glucose 255 mg/dL (74-99); Non-African American GFR(CKD) >90 (>60 ml/min/1.73 sqM); Potassium 4.5 mmol/L (3.5-5.1); Sodium 130 mmol/L (137-145); Total Bilirubin 1.6 mg/dL (0.2-1.3); Total Protein 4.8 g/dL (6.3-8.2)
[2020-06-07] MEDS: INSULIN ASPART (NovoLOG) 100 UNIT/ML VIAL SQ SCH ×4 (06:16→23:55)
[2020-06-07] MEDS: LEVOTHYROXINE 75 MCG TAB PO SCH (06:16)
[2020-06-07] MEDS: INSULIN DETEMIR (LEVEMIR) 100 UNIT/ML SYR SQ SCH ×2 (06:16→19:39)
[2020-06-07] MEDS: methylPREDNISolone SOD SUCCI 40 MG/ML 1 ML VIAL IV SCH ×4 (06:16→23:44)
[2020-06-07 06:20] LABS: Anisocytosis Slight; Basophils % (A) 0 %; Eosinophils % (A) 0 %; HGB 11.6 gm/dL (11.4-16.0); Lymphocytes # (A) 0.4 k/uL (1.0-4.8); Lymphocytes % (A) 9 %; MCH 30.2 pg (25.0-35.0); MCHC 32.3 g/dL (31.0-37.0); MCV 93.4 fL (80.0-100.0); Macrocytosis Slight; Mean Platelet Volume 9.3; Monocytes # (A) 0.3 k/uL (0-1.0); Monocytes % (A) 7 %; Neutrophils # (A) 3.3 k/uL (1.3-7.7); Neutrophils % (A) 82 %; RBC 3.86 m/uL (3.80-5.40); RDW 19.6 % (11.5-15.5)
[2020-06-07 06:24] LABS: Platelet Count 61 k/uL (150-450)
[2020-06-07] MEDS: ALBUTEROL HFA INHALER INHALATION PRN ×3 (07:16→19:49)
--- NOTE | 2020-06-07 07:43 | XR ---
EXAMINATION TYPE: XR chest 1V portable DATE OF EXAM: 06/07/2020 COMPARISON: NONE HISTORY: SOB, Follow Up FINDINGS: Indwelling tubes and catheters are unchanged. Scattered airspace infiltrates persist unchanged. Stable appearance of the cardio-mediastinal structures at this time. Pleural effusion unchanged. IMPRESSION: 1. Stable portable chest. Clinical correlation and follow up until resolution is recommended.
[2020-06-07] MEDS ORDERED: ROCURONIUM 10 MG/ML (5 ML VIAL) IV ONE (08:10)
[2020-06-07] MEDS ORDERED: fentaNYL (PF) 50 MCG/ML 2 ML AMP ONE (08:10)
[2020-06-07] MEDS: ZINC SULFATE 220 MG CAP PO SCH (09:11)
[2020-06-07] MEDS: GABAPENTIN 300 MG CAP PO SCH ×4 (09:11→21:51)
[2020-06-07] MEDS: CHOLECALCIFEROL 25 MCG (1000 IU) TABLET PO SCH (09:11)
[2020-06-07] MEDS: CYANOCOBALAMIN 500 MCG TAB PO SCH (09:11)
[2020-06-07] MEDS: ASCORBIC ACID 500 MG TAB PO SCH (09:11)
[2020-06-07] MEDS: PANTOPRAZOLE 40 MG/10 ML VIAL IVP SCH ×2 (09:11→19:39)
[2020-06-07] MEDS: FERROUS SULFATE 325 MG TAB PO SCH (09:11)
[2020-06-07] MEDS: CHLORHEXIDINE GLUCONATE 15 ML CUP MUCOUS MEM SCH ×2 (09:12→19:38)
--- NOTE | 2020-06-07 09:13 | P.OP ---
Date of Procedure: 06/07/20 Preoperative Diagnosis: Respiratory failure Malnutrition Postoperative Diagnosis: Respiratory failure Malnutrition Procedure(s) Performed: Tracheostomy EGD Anesthesia: [place] Surgeon: Juan M Christy Estimated Blood Loss (ml): 5 Pathology: none sent Condition: stable Disposition: PACU Description of Procedure: he patient's placed on the operative table in the supine position. The patient received general anesthesia. The neck was prepped and draped in sterile fashion. A standard [place] incision was made. And then using electrocautery the subcu tissues were divided. The strap muscles were divided in the midline. The Sahni traction placed a wound. The thyroid gland was visualized. The trachea was then visualized. The [employer] MANA[employer] placed the endotracheal tube into the right mainstem bronchus. The tracheotomy performed and second tracheal rings. The endotracheal tube was brought back under direct vision the #7 [place] adjustable flange tracheotomy tube was placed into the trachea. The balloon was inflated. End tidal CO2 was confirmed. The patient was ventilated adequately. The endotracheal tube was withdrawn.. The skin was closed interrupted 3-0 nylon suture. Next the gastroscope oropharynx is esophagus and stomach. The stomach was insufflated air. The patient had a previous sleeve gastrectomy. No suitable light reflux was seen the anterior abdominal wall. Due to the sleeve gastrectomy the patient was scheduled for an open jejunostomy tube
[2020-06-07] MEDS ORDERED: CISATRACURIUM 2 MG/ML 5 ML VIAL IV ONE (10:07)
[2020-06-07] MEDS: CISATRACURIUM 200 MG in SODIUM CHLORIDE 0.9% 180 ML IV SCH ×3 (10:32→23:41)
--- NOTE | 2020-06-07 10:35 | P.PN ---
Subjective Progress Note Date: 06/07/20 Principal diagnosis: COVID-19 pneumonia This is a 59-year-old white female patient was initially admitted to the hospital on 05/04/2020 with a COVID-19 pneumonia. Patient received Remdesivir, convalescent plasma and subsequently related to increased oxygen needs also received Tocilizumab. She had been on steroids since admission. In the last 2 weeks patient required BiPAP support, and in last several days has become quite BiPAP dependent. She developed respiratory fatigue, worsening hypoxia and was emergently transferred to the intensive care unit yesterday on 06/04/2020 and intubated and placed on mechanical ventilator. She is currently on assist control mode of ventilation with a rate of 24, tidal vitamins 450, FiO2 of 80% and PEEP of 15, this morning's blood gas shows pO2 of 90, pCO2 of 42, and pH of 7.44. She is currently on 0.9 normal saline at 125, norepinephrine is at 0.02 mics per kilo per minute, Diprivan and is at 60 mics per kilo per minute, and f entanyl drip is at 0.5 mics per kilo per hour. Nimbex is at 1 mg/kg/m. Today's chest x-ray shows patchy infiltrates throughout both lung hernandez with interval progression. Her lab work shows white blood cell count of 3.9, hemoglobin of 11.3, platelet count is 72, d-dimer is 1.39, sodium is 131, potassium is 3.7, chloride is 100, CO2 is 28, BUN of 26, creatinine 0.40, total bilirubin is 1.9, her liver enzymes have increased with AST at 98, ALT at 212, alkaline phosphatase at 245, today's LDH is 1412, relatively stable compared to previous value, and CRP is at 0.7. Pro-calcitonin level from 06/02/2020 was negative at 0.13. After the patient was intubated for TPN was discontinued and patient was placed on tube feedings with vital high-protein at 10 ML per hour, and this will be increased to goal per RD recommendations. Currently in terms of treatment she remains on Solu-Medrol at 40 mg every 6 hours, she is on empiric antibiotic coverage in the form of Zosyn, cultures have been negative. On 06/06/2020 patient is seen in follow-up in the intensive care unit. Patient was intubated and placed on mechanical ventilator on 06/04/2020, she remains sedated, and intubated today she is on pressure control mode of ventilation, with inspiratory pressure of 20, inspiratory time of 0.9, rate of 24, FiO2 of 70%, and PEEP of 15, this morning's blood gas shows pO2 of 69, pCO2 56, and pH of 7.30. She is currently sedated with Diprivan at 50 mics per kilo per minute, and fentanyl drip is at 1 mics per kilo per hour, no maintenance IV fluids, and Norepinephrine is currently infusing at 0.03 mL's per hour, she is on vital high-protein at 25 with a goal of 25 and standard water flushes 30 ml/30 ml. no paralytics. Today's chest x-ray has been reviewed showing diffuse bilateral airspace disease which is stable in appearance. Today's labs have been reviewed, white blood cell, 5.6, hemoglobin is 12.2, platelet count is 79, lymphocyte count of 0.4, d-dimer is 1.39, serum sodium is 132, potassium is 4.4, chloride is 102, CO2 is 27, B1 is 26 and creatinine 0.47, AST is 203, ALT 369, LDH is increased at 1631 and CRP is 1.2, her pro-calcitonin level came back negative at 0.13. Blood cultures have been negative. We can stop her antibiotics. She remains on IV Solu-Medrol 40 mg every 6 hours, IV fluids in at 125 ML per hour. Hemodynamically patient is requiring small dose of norep inephrine, producing adequate urine in the order of 30-60 ML per hour. On 06/07/2020 patient seen in follow-up in the intensive care unit, she underwent tracheostomy placement today with Dr. Christy, tolerated procedure well, she is currently on pressure control mode of ventilation, inspiratory pr essure of 20m rate of 24, inspiratory time of 0.9, FiO2 of 70% and PEEP of 15. This morning's blood gas showed pO2 of 70, pCO2 of 63, pH of 7.24. Patient is currently on 0.9 at a rate of 125 ML per hour, levo fed is at 5 mics per minute, Diprivan is a 40 mics per kilo per minute, and fentanyl drip is at 1 luann per kilo per minute, tube feedings are on hold for possibility of PEG tube placement. This morning's chest x-ray shows scattered airspace infiltrates, unchanged. Today's labs have been reviewed, white blood cell count is 4.0, hemoglobin is 11.6, lymphocyte count is 0.4, serum sodium is 1:30, potassium is 4.5, BUN of 30 creatinine 0.51, AST is 175, ALT is 441, and alkaline phosphatase is 358. Patient is currently on IV Solu-Medrol 40 mg every 6 hours, she is on a small dose of norepinephrine, anticoagulation is currently on hold for tracheostomy. Yesterday's d-dimer was 1.39. Platelet count was 61. Blood cultures have shown no growth. She has been afebrile. Objective - Vital Signs Vital signs: Vital Signs Temp 97.4 F L 06/07/20 09:00 Pulse 66 06/07/20 10:00 Resp 24 06/07/20 10:00 BP 114/56 06/06/20 19:00 Pulse Ox 95 06/07/20 10:00 Intake & Output 06/06/20 06/07/20 06/07/20 18:59 06:59 18:59 Intake Total 2028.914 2197.158 696.613 Output Total 415 427 208 Balance 0587.763 7819.158 488.613 Weight 147.4 kg Intake: IV 1275 1500 500 Sodium Chloride 0.9% 1, 1275 1500 500 000 ml @ 125 mls/hr IV . Q8H [facility]ESSI Rx#:[id number] Intake, IV Titration 653.914 477.158 136.613 Amount Norepinephrine 8 mg In 260.444 112.069 11.965 Sodium Chloride 0.9% 250 ml @ 0.05 MCG/KG/MIN 12. 819 mls/hr IV .Q20H8M Y[facility] Rx#:[id number] fentaNYL (PF). 1,000 mcg 6.917 16.367 In Sodium Chloride 0.9% 80 ml @ Per Protocol IV . Q0M Y[facility]I Rx#:[id number] propofoL 1,000 mg In 386.553 348.722 124.648 Empty Bag 1 bag @ Titrate IV .Q0M YESSI Rx#: [id number] Tube Feeding 100 125 Other 95 60 Output: Urine 415 427 205 Estimated Blood Loss 3 Other: Voiding Method Indwelling Catheter Indwelling Catheter ABP, PAP, CO, CI - Last Documented Arterial Blood Pressure 131/53 - Exam GENERAL EXAM: sedated, intubated, 59-year-old white female, on pressure control mode of ventilation with FiO2 of 70% and PEEP of 15, comfortable in no apparent distress. HEAD: Normocephalic/atraumatic. EYES: Normal reaction of pupils, equal size. Conjunctiva pink, sclera white. NOSE: Clear with pink turbinates. Skin breakdown from prolonged BiPAP support on the bridge of the nose THROAT: No erythema or exudates. NECK: No masses, no JVD, no thyroid enlargement, no adenopathy. CHEST: No chest wall deformity. Symmetrical expansion. LUNGS: Equal air entry with no crackles, wheeze, rhonchi or dullness. CVS: Regular rate and rhythm, normal S1 and S2, no gallops, no murmurs, no rubs ABDOMEN: Soft, nontender. No hepatosplenomegaly, normal bowel sounds, no guarding or rigidity. EXTREMITIES: No clubbing, no edema, no cyanosis, 2+ pulses and upper and lower extremities. MUSCULOSKELETAL: Muscle strength and tone normal. SPINE: No scoliosis or deformity SKIN: No rashes CENTRAL NERVOUS SYSTEM: Sedated, intubated No focal deficits, tone is normal in all 4 extremities. - Labs CBC & Chem 7: 06/07/20 04:35 06/07/20 04:35 Labs: Abnormal Lab Results - Last 24 Hours (Table) 06/06/20 06/06/20 06/06/20 Range/Units 11:42 17:38 23:37 RDW (11.5-15.5) % Plt Count (150-450) k/uL Lymphocytes # (1.0-4.8) k/uL ABG pH (7.35-7.45) ABG pCO2 (35-45) mmHg ABG pO2 (83-108) mmHg ABG HCO3 (21-25) mmol/L ABG Total CO2 (19-24) mmol/L ABG O2 Saturation (94-97) % Sodium (137-145) mmol/L BUN (7-17) mg/dL Creatinine (0.52-1.04) mg/dL Glucose (74-99) mg/dL POC Glucose (mg/dL) 287 H 291 H 272 H (75-99) mg/dL Total Bilirubin (0.2-1.3) mg/dL AST (14-36) U/L ALT (4-34) U/L Alkaline Phosphatase (38-126) U/L Total Protein (6.3-8.2) g/dL Albumin (3.5-5.0) g/dL 06/07/20 06/07/20 06/07/20 Range/Units 04:34 04:35 04:35 RDW 19.6 H (11.5-15.5) % Plt Count 61 L (150-450) k/uL Lymphocytes # 0.4 L (1.0-4.8) k/uL ABG pH 7.24 L (7.35-7.45) ABG pCO2 63 H (35-45) mmHg ABG pO2 70 L (83-108) mmHg ABG HCO3 27 H (21-25) mmol/L ABG Total CO2 29 H (19-24) mmol/L ABG O2 Saturation 93.0 L (94-97) % Sodium 130 L (137-145) mmol/L BUN 30 H (7-17) mg/dL Creatinine 0.51 L (0.52-1.04) mg/dL Glucose 255 H (74-99) mg/dL POC Glucose (mg/dL) (75-99) mg/dL Total Bilirubin 1.6 H (0.2-1.3) mg/dL AST 175 H (14-36) U/L ALT 441 H (4-34) U/L Alkaline Phosphatase 358 H (38-126) U/L Total Protein 4.8 L (6.3-8.2) g/dL Albumin 2.4 L (3.5-5.0) g/dL 06/07/20 Range/Units 05:57 RDW (11.5-15.5) % Plt Count (150-450) k/uL Lymphocytes # (1.0-4.8) k/uL ABG pH (7.35-7.45) ABG pCO2 (35-45) mmHg ABG pO2 (83-108) mmHg ABG HCO3 (21-25) mmol/L ABG Total CO2 (19-24) mmol/L ABG O2 Saturation (94-97) % Sodium (137-145) mmol/L BUN (7-17) mg/dL Creatinine (0.52-1.04) mg/dL Glucose (74-99) mg/dL POC Glucose (mg/dL) 274 H (75-99) mg/dL Total Bilirubin (0.2-1.3) mg/dL AST (14-36) U/L ALT (4-34) U/L Alkaline Phosphatase (38-126) U/L Total Protein (6.3-8.2) g/dL Albumin (3.5-5.0) g/dL Assessment and Plan Plan: Assessment: #1. Acute hypoxic respiratory failure related to COVID-19 pneumonia, status post Remdesivir, convalescent plasma, and patient received Tocilizumab for progressive hypoxia and dyspnea. Required prolonged BiPAP support, intubated and placed on mechanical ventilator on 06/04/2020 On 06/07/2020 patient trached, PEG tube is planned for Wednesday due to previous history of gastric bypass surgery, and PEG tube placement could not be done at the bedside #2. Neutropenia, low platelet count, possibility of sepsis was considered and patient was placed on Zosyn, blood cultures and procalcitonin remain negative #3. Increased d-dimer and inflammatory markers related to acute COVID-19 pneumonia #4. Hyponatremia, multifactorial possibly related to hyperglycemia, SIADH, hypothyroidism and poor oral intake and hypoalbuminemia. Improving on today's labs #5. Diabetes mellitus type 2 #6. Obesity with a BMI of 46.5 kg/m #7. Hypertension #8. Hyperlipidemia #9. Hypothyroidism Plan: Wean norepinephrine, continue IV fluids, continue tube feedings through the OG tube PEG tube could not be placed today, will be done on Wednesday, in the meantime clearance received from surgery to continue tube feedings Paralyzed and adequately sedated the patient and patient will be placed on volume assist control mode of ventilation Today's chest x-ray shows no significant change in the appearance of bilateral infiltrates Procalcitonin reviewed, blood cultures remain negative, no fever, we stopped Zosyn Continue tube feedings GI and DVT prophylaxis, Start Lovenox 40 mg subcu daily We'll continue to closely follow I performed a history & physical examination of the patient and discussed their management with my nurse practitioner, Chela John. I reviewed the nurse practitioner's note and agree with the documented findings and plan of care. Lung sounds are positive for diminished breath sounds with bilateral crackles The findings and the impression was discussed with the patient. I attest to the documentation by the nurse practitioner. Time with Patient: Greater than 30
[2020-06-07 12:00] LABS: ABG Base Excess -0.6 mmol/L; ABG HCO3 26 mmol/L (21-25); ABG Oxygen Saturation 96.3 % (94-97); ABG PCO2 52 mmHg (35-45); ABG PO2 97 mmHg (83-108); ABG TCO2 27 mmol/L (19-24); Allen Test Performed? Yes
[2020-06-07 12:06] LABS: Glucose,Whole Blood 329 mg/dL (75-99)
--- NOTE | 2020-06-07 12:38 | P.PN ---
Subjective Patient is seen in follow-up for hyponatremia. Sodium level 130 today. Intubated June 04 due to worsening respiratory distress. Underwent trac heostomy this morning. On low-dose Levophed. Receiving IV fluids as well as tube feeding. Nonoliguric. Vital signs are stable. On low-dose Levophed. HEENT: Tracheostomy noted. LUNGS: Breath sounds decreased. HEART: Rate and Rhythm are regular. ABDOMEN: Soft, obese. EXTREMITITES: Trace edema. Objective - Vital Signs Vital signs: Vital Signs Temp 97.4 F L 06/07/20 09:00 Pulse 63 06/07/20 11:00 Resp 24 06/07/20 11:00 BP 114/56 06/06/20 19:00 Pulse Ox 95 06/07/20 11:00 Intake & Output 06/06/20 06/07/20 06/07/20 18:59 06:59 18:59 Intake Total 2028.914 2197.158 982.708 Output Total 415 427 348 Balance 8956.319 3552.158 634.708 Weight 147.4 kg Intake: IV 1275 1500 625 Sodium Chloride 0.9% 1, 1275 1500 625 000 ml @ 125 mls/hr IV . Q8H YESS[facility] Rx#:[id number] Intake, IV Titration 653.914 477.158 297.708 Amount Cisatracurium 200 mg In 17.6 Sodium Chloride 0.9% 180 ml @ 2 MCG/KG/MIN 17.688 mls/hr IV .[id number] YESSI Rx #:[id number] Norepinephrine 8 mg In 260.444 112.069 11.965 Sodium Chloride 0.9% 250 ml @ 0.05 MCG/KG/MIN 12. 819 mls/hr IV .Q20H8M YESSI Rx#:[id number] fentaNYL (PF). 1,000 mcg 6.917 16.367 68.143 In Sodium Chloride 0.9% 80 ml @ Per Protocol IV . Q0M YESSI Rx#:[id number] propofoL 1,000 mg In 386.553 348.722 200.000 Empty Bag 1 bag @ Titrate IV .Q0M YESSI Rx#: [id number] Tube Feeding 100 125 Other 95 60 Output: Urine 415 427 345 Estimated Blood Loss 3 Other: Voiding Method Indwelling Catheter Indwelling Catheter ABP, PAP, CO, CI - Last Documented Arterial Blood Pressure 91/51 - Labs CBC & Chem 7: 06/07/20 04:35 06/07/20 04:35 Labs: Abnormal Lab Results - Last 24 Hours (Table) 06/06/20 06/06/20 06/07/20 Range/Units 17:38 23:37 04:34 RDW (11.5-15.5) % Plt Count (150-450) k/uL Lymphocytes # (1.0-4.8) k/uL ABG pH 7.24 L (7.35-7.45) ABG pCO2 63 H (35-45) mmHg ABG pO2 70 L (83-108) mmHg ABG HCO3 27 H (21-25) mmol/L ABG Total CO2 29 H (19-24) mmol/L ABG O2 Saturation 93.0 L (94-97) % Sodium (137-145) mmol/L BUN (7-17) mg/dL Creatinine (0.52-1.04) mg/dL Glucose (74-99) mg/dL POC Glucose (mg/dL) 291 H 272 H (75-99) mg/dL Total Bilirubin (0.2-1.3) mg/dL AST (14-36) U/L ALT (4-34) U/L Alkaline Phosphatase (38-126) U/L Total Protein (6.3-8.2) g/dL Albumin (3.5-5.0) g/dL 06/07/20 06/07/20 06/07/20 Range/Units 04:35 04:35 05:57 RDW 19.6 H (11.5-15.5) % Plt Count 61 L (150-450) k/uL Lymphocytes # 0.4 L (1.0-4.8) k/uL ABG pH (7.35-7.45) ABG pCO2 (35-45) mmHg ABG pO2 (83-108) mmHg ABG HCO3 (21-25) mmol/L ABG Total CO2 (19-24) mmol/L ABG O2 Saturation (94-97) % Sodium 130 L (137-145) mmol/L BUN 30 H (7-17) mg/dL Creatinine 0.51 L (0.52-1.04) mg/dL Glucose 255 H (74-99) mg/dL POC Glucose (mg/dL) 274 H (75-99) mg/dL Total Bilirubin 1.6 H (0.2-1.3) mg/dL AST 175 H (14-36) U/L ALT 441 H (4-34) U/L Alkaline Phosphatase 358 H (38-126) U/L Total Protein 4.8 L (6.3-8.2) g/dL Albumin 2.4 L (3.5-5.0) g/dL 06/07/20 06/07/20 Range/Units 11:55 11:57 RDW (11.5-15.5) % Plt Count (150-450) k/uL Lymphocytes # (1.0-4.8) k/uL ABG pH 7.30 L (7.35-7.45) ABG pCO2 52 H (35-45) mmHg ABG pO2 (83-108) mmHg ABG HCO3 26 H (21-25) mmol/L ABG Total CO2 27 H (19-24) mmol/L ABG O2 Saturation (94-97) % Sodium (137-145) mmol/L BUN (7-17) mg/dL Creatinine (0.52-1.04) mg/dL Glucose (74-99) mg/dL POC Glucose (mg/dL) 329 H (75-99) mg/dL Total Bilirubin (0.2-1.3) mg/dL AST (14-36) U/L ALT (4-34) U/L Alkaline Phosphatase (38-126) U/L Total Protein (6.3-8.2) g/dL Albumin (3.5-5.0) g/dL Assessment and Plan Plan: Assessment: 1. Hyponatremia. Partially due to hyperglycemia. Sodium level 130 today - corrected sodium 132. 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 TSH a little low. Urine osmolality 1047 and urine sodium less than 10. 2. COVID-19 pneumonia. 3. Diabetes mellitus. 4. Acute hypoxic respiratory failure. On 70% FiO2. Plan: Maintain IV fluids and tube feeding. Wean Levophed and FiO2. Continue to monitor renal function and urine output. Repeat electrolytes in the morning.
[2020-06-07] MEDS: NOREPINEPHRINE 8 MG in SODIUM CHLORIDE 0.9% 250 ML IV SCH (14:24)
[2020-06-07 15:03] VITALS: BMI 50.8
[2020-06-07 18:02] LABS: Glucose,Whole Blood 233 mg/dL (75-99)
--- NOTE | 2020-06-07 19:04 | P.PN ---
Subjective Progress Note Date: 06/07/20 Principal diagnosis: Sepsis, Respiratory failure, DIC Status Post Trach, continues on ventilator support Objective - Vital Signs Vital signs: Vital Signs Temp 97.4 F L 06/07/20 09:00 Pulse 66 06/07/20 10:00 Resp 24 06/07/20 10:00 BP 114/56 06/06/20 19:00 Pulse Ox 95 06/07/20 10:00 Intake & Output 06/06/20 06/07/20 06/07/20 18:59 06:59 18:59 Intake Total 2028.914 2197.158 696.613 Output Total 415 427 208 Balance 0867.965 0691.158 488.613 Weight 147.4 kg Intake: IV 1275 1500 500 Sodium Chloride 0.9% 1, 1275 1500 500 000 ml @ 125 mls/hr IV . Q8H YESS[facility] Rx#:[id number] Intake, IV Titration 653.914 477.158 136.613 Amount Norepinephrine 8 mg In 260.444 112.069 11.965 Sodium Chloride 0.9% 250 ml @ 0.05 MCG/KG/MIN 12. 819 mls/hr IV .Q20H8M Y[facility] Rx#:[id number] fentaNYL (PF). 1,000 mcg 6.917 16.367 In Sodium Chloride 0.9% 80 ml @ Per Protocol IV . Q0M YESSI Rx#:[id number] propofoL 1,000 mg In 386.553 348.722 124.648 Empty Bag 1 bag @ Titrate IV .Q0M YESSI Rx#: [id number] Tube Feeding 100 125 Other 95 60 Output: Urine 415 427 205 Estimated Blood Loss 3 Other: Voiding Method Indwelling Catheter Indwelling Catheter ABP, PAP, CO, CI - Last Documented Arterial Blood Pressure 131/53 - Exam - Constitutional Intubated - EENT - Respiratory Respiratory: bilateral: diminished, increased effort - Cardiovascular Heart sounds: irr tach Peripheral Edema: bilateral: Trace - Neurologic Neurologic: ORLIN - Musculoskeletal Musculoskeletal: orlin - Labs CBC & Chem 7: 06/07/20 04:35 06/07/20 04:35 Labs: Abnormal Lab Results - Last 24 Hours (Table) 06/06/20 06/06/20 06/06/20 Range/Units 11:42 17:38 23:37 RDW (11.5-15.5) % Plt Count (150-450) k/uL Lymphocytes # (1.0-4.8) k/uL ABG pH (7.35-7.45) ABG pCO2 (35-45) mmHg ABG pO2 (83-108) mmHg ABG HCO3 (21-25) mmol/L ABG Total CO2 (19-24) mmol/L ABG O2 Saturation (94-97) % Sodium (137-145) mmol/L BUN (7-17) mg/dL Creatinine (0.52-1.04) mg/dL Glucose (74-99) mg/dL POC Glucose (mg/dL) 287 H 291 H 272 H (75-99) mg/dL Total Bilirubin (0.2-1.3) mg/dL AST (14-36) U/L ALT (4-34) U/L Alkaline Phosphatase (38-126) U/L Total Protein (6.3-8.2) g/dL Albumin (3.5-5.0) g/dL 06/07/20 06/07/20 06/07/20 Range/Units 04:34 04:35 04:35 RDW 19.6 H (11.5-15.5) % Plt Count 61 L (150-450) k/uL Lymphocytes # 0.4 L (1.0-4.8) k/uL ABG pH 7.24 L (7.35-7.45) ABG pCO2 63 H (35-45) mmHg ABG pO2 70 L (83-108) mmHg ABG HCO3 27 H (21-25) mmol/L ABG Total CO2 29 H (19-24) mmol/L ABG O2 Saturation 93.0 L (94-97) % Sodium 130 L (137-145) mmol/L BUN 30 H (7-17) mg/dL Creatinine 0.51 L (0.52-1.04) mg/dL Glucose 255 H (74-99) mg/dL POC Glucose (mg/dL) (75-99) mg/dL Total Bilirubin 1.6 H (0.2-1.3) mg/dL AST 175 H (14-36) U/L ALT 441 H (4-34) U/L Alkaline Phosphatase 358 H (38-126) U/L Total Protein 4.8 L (6.3-8.2) g/dL Albumin 2.4 L (3.5-5.0) g/dL 06/07/20 Range/Units 05:57 RDW (11.5-15.5) % Plt Count (150-450) k/uL Lymphocytes # (1.0-4.8) k/uL ABG pH (7.35-7.45) ABG pCO2 (35-45) mmHg ABG pO2 (83-108) mmHg ABG HCO3 (21-25) mmol/L ABG Total CO2 (19-24) mmol/L ABG O2 Saturation (94-97) % Sodium (137-145) mmol/L BUN (7-17) mg/dL Creatinine (0.52-1.04) mg/dL Glucose (74-99) mg/dL POC Glucose (mg/dL) 274 H (75-99) mg/dL Total Bilirubin (0.2-1.3) mg/dL AST (14-36) U/L ALT (4-34) U/L Alkaline Phosphatase (38-126) U/L Total Protein (6.3-8.2) g/dL Albumin (3.5-5.0) g/dL Assessment and Plan Plan: - Imaging and Cardiology Chest x-ray: report reviewed Assessment and Plan Thrombocytopenia: ITP versus DIC (disseminated intravascular coagulation) Mild DIC - Improved Continue to monitor Coags CBC pending today - Resolving Anticoagulation ok with platelets greater than 59K and coags stable HIT antibodies neg - Lovenox ok Platelets decrease 60K today, LFTs increase - check coags Increased LFTs: - Likely secondary to medication and Illness: - Monitor daily - Ultrasound reviewed, no obstruction noted Coronavirus infection - Per Pulmonology and ID - Best Supportive Care Acute Hypoxia Respiratory Failure - now intubated on ventilator - Worsening - Status post Trach Plan: CBC remains stable, will monitor daily Continue care per ICU Status post trach
[2020-06-07 23:53] LABS: Glucose,Whole Blood 233 mg/dL (75-99)
--- NOTE | 2020-06-08 00:49 | P.PN ---
Subjective This is a pleasant 59 years old female with past medical history of hypertension, hyperlipidemia, hyperthyroidism, type 2 diabetes mellitus, GERD, G I bleed. Presents with respiratory symptoms secondary to acute Covid pulmonary infection on both sides with acute hypoxic respiratory failure needing BiPAP machine individually patient was intubated on 06/04. Currently patient remains in the ICU intubated and sedated with the pulmonary/critical care team following the patient closely. They had already consulted surgery team and the planned for her to go for PEG tube and tracheostomy tomorrow patient remains on Solu-Medrol 60 mg, vitamin C, D and zinc. Protonix oral 40 twice a day and Levemir insulin 35 units twice a day. 05/21/2020 Patient remains in the ICU intubated with pulmonary/critical care team followed closely and help with that management. Patient underwent tracheostomy by surgery team today. PEG tube is going to be placed on Wednesday patient is currently receiving nutrition through tube feeding through or G-tube. patient remains on Solu-Medrol 60 mg, vitamin C, D and zinc. Protonix oral 40 twice a day Objective - Vital Signs Vital signs: Vital Signs Temp 97.6 F 06/07/20 12:00 Pulse 54 L 06/07/20 14:00 Resp 24 06/07/20 14:00 BP 114/56 06/06/20 19:00 Pulse Ox 93 L 06/07/20 14:00 Intake & Output 06/06/20 06/07/20 06/07/20 18:59 06:59 18:59 Intake Total 2028.914 2197.158 1706.916 Output Total 415 427 468 Balance 0808.674 5971.158 1238.916 Weight 147.4 kg 147.4 kg Intake: IV 1275 1500 1000 Sodium Chloride 0.9% 1, 1275 1500 1000 000 ml @ 125 mls/hr IV . Q8H [facility] Rx#:[id number] Intake, IV Titration 653.914 477.158 516.916 Amount Cisatracurium 200 mg In 70.4 Sodium Chloride 0.9% 180 ml @ 2 MCG/KG/MIN 17.688 mls/hr IV .[id number] [facility] Rx #:[id number] Norepinephrine 8 mg In 260.444 112.069 78.373 Sodium Chloride 0.9% 250 ml @ 0.05 MCG/KG/MIN 12. 819 mls/hr IV .Q20H8M [facility] Rx#:[id number] fentaNYL (PF). 1,000 mcg 6.917 16.367 68.143 In Sodium Chloride 0.9% 80 ml @ Per Protocol IV . Q0M [facility] Rx#:[id number] propofoL 1,000 mg In 386.553 348.722 300.000 Empty Bag 1 bag @ Titrate IV .Q0M [facility]ESSI Rx#: [id number] Tube Feeding 100 125 100 Other 95 90 Output: Urine 415 427 465 Estimated Blood Loss 3 Other: Voiding Method Indwelling Catheter Indwelling Catheter Indwelling Catheter ABP, PAP, CO, CI - Last Documented Arterial Blood Pressure 98/54 - Exam -GENERAL: The patient is intubated and sedated HEENT: Pupils are round and equally reacting to light. EOMI. No scleral icterus. No conjunctival pallor. Normocephalic, atraumatic. No pharyngeal erythema. No thyromegaly. CARDIOVASCULAR: S1 and S2 present. No murmurs, rubs, or gallops. PULMONARY: Chest is clear to auscultation, no wheezing or crackles. ABDOMEN: Soft, nontender, nondistended, normoactive bowel sounds. No palpable o rganomegaly. MUSCULOSKELETAL: No joint swelling or deformity. EXTREMITIES: No cyanosis, clubbing, or pedal edema. NEUROLOGICAL: Gross neurological examination did not reveal any focal deficits. SKIN: No rashes. no petechiae. - Labs CBC & Chem 7: 06/07/20 04:35 06/07/20 04:35 Labs: Abnormal Lab Results - Last 24 Hours (Table) 06/06/20 06/06/20 06/07/20 Range/Units 17:38 23:37 04:34 RDW (11.5-15.5) % Plt Count (150-450) k/uL Lymphocytes # (1.0-4.8) k/uL ABG pH 7.24 L (7.35-7.45) ABG pCO2 63 H (35-45) mmHg ABG pO2 70 L (83-108) mmHg ABG HCO3 27 H (21-25) mmol/L ABG Total CO2 29 H (19-24) mmol/L ABG O2 Saturation 93.0 L (94-97) % Sodium (137-145) mmol/L BUN (7-17) mg/dL Creatinine (0.52-1.04) mg/dL Glucose (74-99) mg/dL POC Glucose (mg/dL) 291 H 272 H (75-99) mg/dL Total Bilirubin (0.2-1.3) mg/dL AST (14-36) U/L ALT (4-34) U/L Alkaline Phosphatase (38-126) U/L Total Protein (6.3-8.2) g/dL Albumin (3.5-5.0) g/dL 06/07/20 06/07/20 06/07/20 Range/Units 04:35 04:35 05:57 RDW 19.6 H (11.5-15.5) % Plt Count 61 L (150-450) k/uL Lymphocytes # 0.4 L (1.0-4.8) k/uL ABG pH (7.35-7.45) ABG pCO2 (35-45) mmHg ABG pO2 (83-108) mmHg ABG HCO3 (21-25) mmol/L ABG Total CO2 (19-24) mmol/L ABG O2 Saturation (94-97) % Sodium 130 L (137-145) mmol/L BUN 30 H (7-17) mg/dL Creatinine 0.51 L (0.52-1.04) mg/dL Glucose 255 H (74-99) mg/dL POC Glucose (mg/dL) 274 H (75-99) mg/dL Total Bilirubin 1.6 H (0.2-1.3) mg/dL AST 175 H (14-36) U/L ALT 441 H (4-34) U/L Alkaline Phosphatase 358 H (38-126) U/L Total Protein 4.8 L (6.3-8.2) g/dL Albumin 2.4 L (3.5-5.0) g/dL 06/07/20 06/07/20 Range/Units 11:55 11:57 RDW (11.5-15.5) % Plt Count (150-450) k/uL Lymphocytes # (1.0-4.8) k/uL ABG pH 7.30 L (7.35-7.45) ABG pCO2 52 H (35-45) mmHg ABG pO2 (83-108) mmHg ABG HCO3 26 H (21-25) mmol/L ABG Total CO2 27 H (19-24) mmol/L ABG O2 Saturation (94-97) % Sodium (137-145) mmol/L BUN (7-17) mg/dL Creatinine (0.52-1.04) mg/dL Glucose (74-99) mg/dL POC Glucose (mg/dL) 329 H (75-99) mg/dL Total Bilirubin (0.2-1.3) mg/dL AST (14-36) U/L ALT (4-34) U/L Alkaline Phosphatase (38-126) U/L Total Protein (6.3-8.2) g/dL Albumin (3.5-5.0) g/dL Assessment and Plan Assessment: Acute bilateral covid pneumonia Acute hypoxic respiratory failure, requiring intubation and mechanical ventilation on 06/06.Patient is going for tracheotomy and PEG tomorrow Increased inflammatory markers biytopenia, with low WBC and platelets count, could be related to Covid infection. WBC improved now and now only thrombocytopenia Type 2 diabetes mellitus Hypertension Hyperlipidemia Hyperthyroidism Current History of GI bleed Morbid obesity with BMI of 47 Plan: This is a pleasant 59 years old female who presents with Covid and hypoxia. Continue with steroids, zinc and vitamin C. hold Lovenox due to platelets less than 50 K and monitor count. May resume after surgery. Hematology team Patient is status post a tracheostomy, PEG tube to be placed on Wednesday Continue with vent management as per pulmonary/critical care team will follow the case closely Infectious and surgery team are following the case as well. Labs and medication were reviewed.. Continue same treatment. Continue with symptomatic treatment. Resume home medication. Monitor lytes and vitals. DVT and GI prophylaxis. Further recommendations as per clinical course of the pina ent DVT prophylaxis: Subcutaneous Lovenox, on hold due to thrombocytopenia GI Prophylaxis: Pepcid Prognosis is guarded
[2020-06-08] MEDS: fentaNYL (PF). 1,000 MCG in SODIUM CHLORIDE 0.9% 80 ML IV SCH ×2 (01:26→08:35)
[2020-06-08] MEDS: CISATRACURIUM 200 MG in SODIUM CHLORIDE 0.9% 180 ML IV SCH ×4 (02:25→10:42)
[2020-06-08 04:32] LABS: Anisocytosis Slight; HGB 11.4 gm/dL (11.4-16.0); MCH 31.2 pg (25.0-35.0); MCHC 34.5 g/dL (31.0-37.0); MCV 90.4 fL (80.0-100.0); Mean Platelet Volume 8.7; RBC 3.65 m/uL (3.80-5.40); RDW 19.3 % (11.5-15.5)
[2020-06-08 04:33] LABS: Platelet Count 46 k/uL (150-450)
[2020-06-08 04:50] LABS: ALT 400 U/L (4-34); AST 126 U/L (14-36); African American GFR (CKD) >90 (>60 ml/min/1.73 sqM); Albumin 2.3 g/dL (3.5-5.0); Alkaline Phosphatase 338 U/L (38-126); Anion Gap 5 mmol/L; Blood Urea Nitrogen 31 mg/dL (7-17); Calcium 8.3 mg/dL (8.4-10.2); Carbon Dioxide 24 mmol/L (22-30); Chloride 103 mmol/L (98-107); Glucose 251 mg/dL (74-99); Non-African American GFR(CKD) >90 (>60 ml/min/1.73 sqM); Potassium 4.2 mmol/L (3.5-5.1); Sodium 132 mmol/L (137-145); Total Bilirubin 1.4 mg/dL (0.2-1.3); Total Protein 4.6 g/dL (6.3-8.2)
[2020-06-08 04:55] LABS: D-Dimer 1.05 mg/L FEU (<0.60); INR 0.9 (<1.2); Prothrombin Time 10.2 sec (9.0-12.0)
[2020-06-08 05:01] LABS: Anisocytosis (M) Present; Band Neutrophils % 18 %; Lymphocytes # (M) 0.09 k/uL (1.0-4.8); Metamyelocytes # (M) 0.03 k/uL (0); Metamyelocytes % 1 %; Monocytes # (M) 0.18 k/uL (0-1.0); Neutrophils % (M) 72 %; Nucleated Red Blood Cells 0 /100 WBC (0-0); Poikilocytosis (M) Present; Total Cells Counted 200
[2020-06-08 05:02] LABS: Ovalocytes Present
[2020-06-08 05:04] LABS: Partial Thromboplastin Time 20.1 sec (22.0-30.0)
[2020-06-08 05:46] LABS: ABG Base Excess -1.4 mmol/L; ABG HCO3 25 mmol/L (21-25); ABG Oxygen Saturation 92.5 % (94-97); ABG PCO2 47 mmHg (35-45); ABG PH 7.33 (7.35-7.45); ABG PO2 65 mmHg (83-108); ABG TCO2 26 mmol/L (19-24); Allen Test Performed? Yes
[2020-06-08 05:55] VITALS: BP 105/53
[2020-06-08 06:05] LABS: Glucose,Whole Blood 278 mg/dL (75-99)
[2020-06-08] MEDS: INSULIN DETEMIR (LEVEMIR) 100 UNIT/ML SYR SQ SCH (06:18)
[2020-06-08] MEDS: methylPREDNISolone SOD SUCCI 40 MG/ML 1 ML VIAL IV SCH ×2 (06:19→12:56)
[2020-06-08] MEDS: LEVOTHYROXINE 75 MCG TAB PO SCH (06:19)
[2020-06-08] MEDS: INSULIN ASPART (NovoLOG) 100 UNIT/ML VIAL SQ SCH ×2 (06:19→12:56)
--- NOTE | 2020-06-08 07:05 | XR ---
EXAMINATION TYPE: XR chest 1V portable DATE OF EXAM: 06/08/2020 COMPARISON: 06/07/2020 HISTORY: Tube placement TECHNIQUE: Single frontal view of the chest is obtained. FINDINGS: There has been interval placement of a tracheostomy tube. There is an NG tube within the s tomach. There are diffuse tiny partially consolidative airspace opacities bilaterally unchanged compared to t he prior study. There is a dense retrocardiac opacity likely reflecting combination of lung consolida tion, atelectasis. Small pleural effusion not excluded. The osseous structures are intact IMPRESSION: Interval placement of a tracheostomy tube. NG tube unchanged in position. PICC line in t he SVC unchanged in position. No change in the acute cardiopulmonary disease.
[2020-06-08] MEDS: ALBUTEROL HFA INHALER INHALATION PRN ×2 (07:34→11:16)
[2020-06-08] MEDS: ZINC SULFATE 220 MG CAP PO SCH (08:08)
[2020-06-08] MEDS: FERROUS SULFATE 325 MG TAB PO SCH (08:08)
[2020-06-08] MEDS: SENNOSIDES-DOCUSATE SODIUM 1 EACH TAB PO SCH (08:08)
[2020-06-08] MEDS: GABAPENTIN 300 MG CAP PO SCH ×2 (08:08→12:56)
[2020-06-08] MEDS: CYANOCOBALAMIN 500 MCG TAB PO SCH (08:08)
[2020-06-08] MEDS: PANTOPRAZOLE 40 MG/10 ML VIAL IVP SCH (08:08)
[2020-06-08] MEDS: CHOLECALCIFEROL 25 MCG (1000 IU) TABLET PO SCH (08:08)
[2020-06-08] MEDS: ASCORBIC ACID 500 MG TAB PO SCH (08:08)
[2020-06-08] MEDS: CHLORHEXIDINE GLUCONATE 15 ML CUP MUCOUS MEM SCH (08:09)
[2020-06-08] MEDS: SODIUM CHLORIDE 0.9% 1,000 ML IV SCH ×2 (08:09→16:14)
[2020-06-08] MEDS: NOREPINEPHRINE 8 MG in SODIUM CHLORIDE 0.9% 250 ML IV SCH ×3 (08:54→15:23)
--- NOTE | 2020-06-08 10:08 | P.PN ---
Subjective Progress Note Date: 06/08/20 Follow-up for hyponatremia. Objective - Vital Signs Vital signs: Vital Signs Temp 97.7 F 06/08/20 04:00 Pulse 58 L 06/08/20 07:30 Resp 29 H 06/08/20 07:30 BP 105/53 06/08/20 05:30 Pulse Ox 91 L 06/08/20 07:30 Intake & Output 06/07/20 06/08/20 06/08/20 18:59 06:59 18:59 Intake Total 2722.304 3512.247 578.357 Output Total 618 355 30 Balance 2104.304 3157.247 548.357 Weight 147.4 kg 152 kg Intake: IV 1500 1500 250 Sodium Chloride 0.9% 1, 1500 1500 250 000 ml @ 125 mls/hr IV . Q8H [facility] Rx#:[id number] Intake, IV Titration 718.526 1494.247 248.357 Amount Cisatracurium 200 mg In 289.379 818.057 Sodium Chloride 0.9% 180 ml @ 2 MCG/KG/MIN 17.688 mls/hr IV .[id number] [facility] Rx #:[id number] Norepinephrine 8 mg In 114.782 69.479 129.494 Sodium Chloride 0.9% 250 ml @ 0.05 MCG/KG/MIN 12. 819 mls/hr IV .Q20H8M [facility] Rx#:[id number] fentaNYL (PF). 1,000 mcg 68.143 104.06 20.367 In Sodium Chloride 0.9% 80 ml @ Per Protocol IV . Q0M [facility] Rx#:[id number] propofoL 1,000 mg In 400.000 590.651 98.496 Empty Bag 1 bag @ Titrate IV .Q0M YESSI Rx#: [id number] Tube Feeding 200 325 50 Other 150 105 30 Output: Urine 615 355 30 Estimated Blood Loss 3 Other: Voiding Method Indwelling Catheter Indwelling Catheter ABP, PAP, CO, CI - Last Documented Arterial Blood Pressure 114/58 - Exam Intubated on a ventilator. Refer to primary team exam - Labs CBC & Chem 7: 06/08/20 04:01 06/08/20 04:01 Labs: Abnormal Lab Results - Last 24 Hours (Table) 06/07/20 06/07/20 06/07/20 Range/Units 11:55 11:57 17:43 WBC (3.8-10.6) k/uL RBC (3.80-5.40) m/uL Hct (34.0-46.0) % RDW (11.5-15.5) % Plt Count (150-450) k/uL Lymphocytes # (Manual) (1.0-4.8) k/uL Metamyelocytes # (Man) (0) k/uL APTT (22.0-30.0) sec D-Dimer (<0.60) mg/L FEU ABG pH 7.30 L (7.35-7.45) ABG pCO2 52 H (35-45) mmHg ABG pO2 (83-108) mmHg ABG HCO3 26 H (21-25) mmol/L ABG Total CO2 27 H (19-24) mmol/L ABG O2 Saturation (94-97) % Sodium (137-145) mmol/L BUN (7-17) mg/dL Creatinine (0.52-1.04) mg/dL Glucose (74-99) mg/dL POC Glucose (mg/dL) 329 H 233 H (75-99) mg/dL Calcium (8.4-10.2) mg/dL Total Bilirubin (0.2-1.3) mg/dL AST (14-36) U/L ALT (4-34) U/L Alkaline Phosphatase (38-126) U/L Total Protein (6.3-8.2) g/dL Albumin (3.5-5.0) g/dL Coronavirus (PCR) (Not Detectd) 06/07/20 06/07/20 06/08/20 Range/Units 17:53 23:52 04:01 WBC (3.8-10.6) k/uL RBC (3.80-5.40) m/uL Hct (34.0-46.0) % RDW (11.5-15.5) % Plt Count (150-450) k/uL Lymphocytes # (Manual) (1.0-4.8) k/uL Metamyelocytes # (Man) (0) k/uL APTT 20.1 L (22.0-30.0) sec D-Dimer 1.05 H (<0.60) mg/L FEU ABG pH (7.35-7.45) ABG pCO2 (35-45) mmHg ABG pO2 (83-108) mmHg ABG HCO3 (21-25) mmol/L ABG Total CO2 (19-24) mmol/L ABG O2 Saturation (94-97) % Sodium (137-145) mmol/L BUN (7-17) mg/dL Creatinine (0.52-1.04) mg/dL Glucose (74-99) mg/dL POC Glucose (mg/dL) 233 H (75-99) mg/dL Calcium (8.4-10.2) mg/dL Total Bilirubin (0.2-1.3) mg/dL AST (14-36) U/L ALT (4-34) U/L Alkaline Phosphatase (38-126) U/L Total Protein (6.3-8.2) g/dL Albumin (3.5-5.0) g/dL Coronavirus (PCR) Detected A (Not Detectd) 06/08/20 06/08/20 06/08/20 Range/Units 04:01 04:01 05:45 WBC 3.0 L (3.8-10.6) k/uL RBC 3.65 L (3.80-5.40) m/uL Hct 33.0 L (34.0-46.0) % RDW 19.3 H (11.5-15.5) % Plt Count 46 L (150-450) k/uL Lymphocytes # (Manual) 0.09 L (1.0-4.8) k/uL Metamyelocytes # (Man) 0.03 H (0) k/uL APTT (22.0-30.0) sec D-Dimer (<0.60) mg/L FEU ABG pH 7.33 L (7.35-7.45) ABG pCO2 47 H (35-45) mmHg ABG pO2 65 L (83-108) mmHg ABG HCO3 (21-25) mmol/L ABG Total CO2 26 H (19-24) mmol/L ABG O2 Saturation 92.5 L (94-97) % Sodium 132 L (137-145) mmol/L BUN 31 H (7-17) mg/dL Creatinine 0.42 L (0.52-1.04) mg/dL Glucose 251 H (74-99) mg/dL POC Glucose (mg/dL) (75-99) mg/dL Calcium 8.3 L (8.4-10.2) mg/dL Total Bilirubin 1.4 H (0.2-1.3) mg/dL AST 126 H (14-36) U/L ALT 400 H (4-34) U/L Alkaline Phosphatase 338 H (38-126) U/L Total Protein 4.6 L (6.3-8.2) g/dL Albumin 2.3 L (3.5-5.0) g/dL Coronavirus (PCR) (Not Detectd) 06/08/20 Range/Units 06:04 WBC (3.8-10.6) k/uL RBC (3.80-5.40) m/uL Hct (34.0-46.0) % RDW (11.5-15.5) % Plt Count (150-450) k/uL Lymphocytes # (Manual) (1.0-4.8) k/uL Metamyelocytes # (Man) (0) k/uL APTT (22.0-30.0) sec D-Dimer (<0.60) mg/L FEU ABG pH (7.35-7.45) ABG pCO2 (35-45) mmHg ABG pO2 (83-108) mmHg ABG HCO3 (21-25) mmol/L ABG Total CO2 (19-24) mmol/L ABG O2 Saturation (94-97) % Sodium (137-145) mmol/L BUN (7-17) mg/dL Creatinine (0.52-1.04) mg/dL Glucose (74-99) mg/dL POC Glucose (mg/dL) 278 H (75-99) mg/dL Calcium (8.4-10.2) mg/dL Total Bilirubin (0.2-1.3) mg/dL AST (14-36) U/L ALT (4-34) U/L Alkaline Phosphatase (38-126) U/L Total Protein (6.3-8.2) g/dL Albumin (3.5-5.0) g/dL Coronavirus (PCR) (Not Detectd) Assessment and Plan Assessment: #1 hypotonic hyponatremia multifactorial. #2 Covid 19 pneumonia on ventilator #3 septic shock on vasopressors #4 diabetes Plan: #1 sodium improving, continue with fluids. #2 ICU care
[2020-06-08 10:58] LABS: Appearance,Urine Clear (Clear); Bilirubin,Urine Negative (Negative); Blood,Urine Negative (Negative); Budding Yeast,Urine Moderate /hpf; Color,Urine Yellow; Glucose,Urine (UA) Negative (Negative); Ketones,Urine Negative (Negative); Leukocyte Esterase,Urine Trace (Negative); Mucus,Urine Rare /hpf; Nitrite,Urine Negative (Negative); PH, Urine 6.5 (5.0-8.0); Protein,Urine 1+ (Negative); RBC,Urine 43 /hpf (0-5); Specific Gravity,Urine 1.029 (1.001-1.035); Squamous Epithelial Cell,Urine <1 /hpf (0-4); Urobilinogen,Urine <2.0 mg/dL (<2.0); WBC,Urine 10 /hpf (0-5)
--- NOTE | 2020-06-08 11:08 | P.PN ---
Subjective Progress Note Date: 06/08/20 Principal diagnosis: COVID-19 pneumonia This is a 59-year-old white female patient was initially admitted to the hospital on 05/04/2020 with a COVID-19 pneumonia. Patient received Remdesivir, convalescent plasma and subsequently related to increased oxygen needs also received Tocilizumab. She had been on steroids since admission. In the last 2 weeks patient required BiPAP support, and in last several days has become quite BiPAP dependent. She developed respiratory fatigue, worsening hypoxia and was emergently transferred to the intensive care unit yesterday on 06/04/2020 and intubated and placed on mechanical ventilator. She is currently on assist control mode of ventilation with a rate of 24, tidal vitamins 450, FiO2 of 80% and PEEP of 15, this morning's blood gas shows pO2 of 90, pCO2 of 42, and pH of 7.44. She is currently on 0.9 normal saline at 125, norepinephrine is at 0.02 mics per kilo per minute, Diprivan and is at 60 mics per kilo per minute, and f entanyl drip is at 0.5 mics per kilo per hour. Nimbex is at 1 mg/kg/m. Today's chest x-ray shows patchy infiltrates throughout both lung hernandez with interval progression. Her lab work shows white blood cell count of 3.9, hemoglobin of 11.3, platelet count is 72, d-dimer is 1.39, sodium is 131, potassium is 3.7, chloride is 100, CO2 is 28, BUN of 26, creatinine 0.40, total bilirubin is 1.9, her liver enzymes have increased with AST at 98, ALT at 212, alkaline phosphatase at 245, today's LDH is 1412, relatively stable compared to previous value, and CRP is at 0.7. Pro-calcitonin level from 06/02/2020 was negative at 0.13. After the patient was intubated for TPN was discontinued and patient was placed on tube feedings with vital high-protein at 10 ML per hour, and this will be increased to goal per RD recommendations. Currently in terms of treatment she remains on Solu-Medrol at 40 mg every 6 hours, she is on empiric antibiotic coverage in the form of Zosyn, cultures have been negative. On 06/06/2020 patient is seen in follow-up in the intensive care unit. Patient was intubated and placed on mechanical ventilator on 06/04/2020, she remains sedated, and intubated today she is on pressure control mode of ventilation, with inspiratory pressure of 20, inspiratory time of 0.9, rate of 24, FiO2 of 70%, and PEEP of 15, this morning's blood gas shows pO2 of 69, pCO2 56, and pH of 7.30. She is currently sedated with Diprivan at 50 mics per kilo per minute, and fentanyl drip is at 1 mics per kilo per hour, no maintenance IV fluids, and Norepinephrine is currently infusing at 0.03 mL's per hour, she is on vital high-protein at 25 with a goal of 25 and standard water flushes 30 ml/30 ml. no paralytics. Today's chest x-ray has been reviewed showing diffuse bilateral airspace disease which is stable in appearance. Today's labs have been reviewed, white blood cell, 5.6, hemoglobin is 12.2, platelet count is 79, lymphocyte count of 0.4, d-dimer is 1.39, serum sodium is 132, potassium is 4.4, chloride is 102, CO2 is 27, B1 is 26 and creatinine 0.47, AST is 203, ALT 369, LDH is increased at 1631 and CRP is 1.2, her pro-calcitonin level came back negative at 0.13. Blood cultures have been negative. We can stop her antibiotics. She remains on IV Solu-Medrol 40 mg every 6 hours, IV fluids in at 125 ML per hour. Hemodynamically patient is requiring small dose of norep inephrine, producing adequate urine in the order of 30-60 ML per hour. On 06/07/2020 patient seen in follow-up in the intensive care unit, she underwent tracheostomy placement today with Dr. Christy, tolerated procedure well, she is currently on pressure control mode of ventilation, inspiratory pr essure of 20m rate of 24, inspiratory time of 0.9, FiO2 of 70% and PEEP of 15. This morning's blood gas showed pO2 of 70, pCO2 of 63, pH of 7.24. Patient is currently on 0.9 at a rate of 125 ML per hour, levo fed is at 5 mics per minute, Diprivan is a 40 mics per kilo per minute, and fentanyl drip is at 1 luann per kilo per minute, tube feedings are on hold for possibility of PEG tube placement. This morning's chest x-ray shows scattered airspace infiltrates, unchanged. Today's labs have been reviewed, white blood cell count is 4.0, hemoglobin is 11.6, lymphocyte count is 0.4, serum sodium is 1:30, potassium is 4.5, BUN of 30 creatinine 0.51, AST is 175, ALT is 441, and alkaline phosphatase is 358. Patient is currently on IV Solu-Medrol 40 mg every 6 hours, she is on a small dose of norepinephrine, anticoagulation is currently on hold for tracheostomy. Yesterday's d-dimer was 1.39. Platelet count was 61. Blood cultures have shown no growth. She has been afebrile. On 06/08/2020 patient seen in follow-up in intensive care unit, she was trached yesterday on 06/07/2020, this morning she remains trached to the vent, on assist-control mode of ventilation with a rate of 24, tidal on this 400, FiO2 of 90% and PEEP of 5, this morning's blood gas reveals pO2 of 65, pCO2 47, pH of 7 .33, her peak airway pressure is 32, plateau pressure is 29. She remains sedated and paralyzed, she is currently on fentanyl at 1 luann per kilo per hour, to prevent is at 16 m/kg/m, and index is at 10 mics per kilo per minute, levo fed is at 0.05 mics per kilo per minute, and 0.9 normal saline at 125 ML per hour, she is on vital high-protein at 25 with a goal of 25 and standard water flushes. Her chest x-ray today shows diffuse airspace opacities bilaterally, unchanged, and a dense retrocardiac opacity the possibility of lung consolidation, or atelectasis, small pleural effusion not excluded. PEG tube could not be placed yesterday, NG tube was placed and patient is tolerating tube feedings, rest of the labs have been reviewed, showing white blood cell, 3.0, hemoglobin of 11.4, d-dimer is 1.05, sodium is 132, the rest of electrolytes are within normal limits, BUN of 31, creatinine 0.42. Serum cortisone level was obtained and is only 6 despite IV Solu-Medrol 40 mg every 6 hours. Per nursing staff patient has been also hypothermic, TSH was low, and we'll adjust her levothyroxine dose. Blood cultures remain negative to date. Patient is on mechanical DVT prophylaxis only, today's platelet count is 46, hemoglobin is 11.4. Hematology is following. Nursing staff reports that patient's who is on another floor with COVID-19 pneumonia clinically has been deteriorating over the last 24 hours, and sustained pneumothorax, however he declined chest tube placement, and wanted to be made comfortable at this time, and the patient's is the next of kin for the patient. He apparently decided to proceed with life-support withdrawal and comfort care protocol for the patient as well Objective - Vital Signs Vital signs: Vital Signs Temp 94.6 F L 06/08/20 08:00 Pulse 58 L 06/08/20 10:30 Resp 26 H 06/08/20 10:30 BP 105/53 06/08/20 05:30 Pulse Ox 90 L 06/08/20 10:30 Intake & Output 06/07/20 06/08/20 06/08/20 18:59 06:59 18:59 Intake Total 2722.304 3512.247 1203.357 Output Total 618 355 230 Balance 2104.304 3157.247 973.357 Weight 147.4 kg 152 kg Intake: IV 1500 1500 500 Sodium Chloride 0.9% 1, 1500 1500 500 000 ml @ 125 mls/hr IV . Q8H [facility] Rx#:[id number] Intake, IV Titration 056.462 0278.247 548.357 Amount Cisatracurium 200 mg In 289.379 818.057 200 Sodium Chloride 0.9% 180 ml @ 2 MCG/KG/MIN 17.688 mls/hr IV .[id number] [facility] Rx #:[id number] Norepinephrine 8 mg In 114.782 69.479 129.494 Sodium Chloride 0.9% 250 ml @ 0.05 MCG/KG/MIN 12. 819 mls/hr IV .Q20H8M [facility] Rx#:[id number] fentaNYL (PF). 1,000 mcg 68.143 104.06 20.367 In Sodium Chloride 0.9% 80 ml @ Per Protocol IV . Q0M [facility] Rx#:[id number] propofoL 1,000 mg In 400.000 590.651 198.496 Empty Bag 1 bag @ Titrate IV .Q0M [facility] Rx#: [id number] Tube Feeding 200 325 125 Other 150 105 30 Output: Urine 615 355 230 Estimated Blood Loss 3 Other: Voiding Method Indwelling Catheter Indwelling Catheter ABP, PAP, CO, CI - Last Documented Arterial Blood Pressure 103/51 - Exam GENERAL EXAM: sedated, intubated, 59-year-old white female, on pressure control mode of ventilation with FiO2 of 90% and PEEP of 5, comfortable in no apparent distress. HEAD: Normocephalic/atraumatic. EYES: Normal reaction of pupils, equal size. Conjunctiva pink, sclera white. NOSE: Clear with pink turbinates. Skin breakdown from prolonged BiPAP support on the bridge of the nose THROAT: No erythema or exudates. NECK: No masses, no JVD, no thyroid enlargement, no adenopathy. CHEST: No chest wall deformity. Symmetrical expansion. LUNGS: Equal air entry with no crackles, wheeze, rhonchi or dullness. CVS: Regular rate and rhythm, normal S1 and S2, no gallops, no murmurs, no rubs ABDOMEN: Soft, nontender. No hepatosplenomegaly, normal bowel sounds, no guarding or rigidity. EXTREMITIES: No clubbing, no edema, no cyanosis, 2+ pulses and upper and lower extremities. MUSCULOSKELETAL: Muscle strength and tone normal. SPINE: No scoliosis or deformity SKIN: No rashes CENTRAL NERVOUS SYSTEM: Sedated, intubated No focal deficits, tone is normal in all 4 extremities. - Labs CBC & Chem 7: 06/08/20 04:01 06/08/20 04:01 Labs: Abnormal Lab Results - Last 24 Hours (Table) 06/07/20 06/07/20 06/07/20 Range/Units 11:55 11:57 17:43 WBC (3.8-10.6) k/uL RBC (3.80-5.40) m/uL Hct (34.0-46.0) % RDW (11.5-15.5) % Plt Count (150-450) k/uL Lymphocytes # (Manual) (1.0-4.8) k/uL Metamyelocytes # (Man) (0) k/uL APTT (22.0-30.0) sec D-Dimer (<0.60) mg/L FEU ABG pH 7.30 L (7.35-7.45) ABG pCO2 52 H (35-45) mmHg ABG pO2 (83-108) mmHg ABG HCO3 26 H (21-25) mmol/L ABG Total CO2 27 H (19-24) mmol/L ABG O2 Saturation (94-97) % Sodium (137-145) mmol/L BUN (7-17) mg/dL Creatinine (0.52-1.04) mg/dL Glucose (74-99) mg/dL POC Glucose (mg/dL) 329 H 233 H (75-99) mg/dL Calcium (8.4-10.2) mg/dL Total Bilirubin (0.2-1.3) mg/dL AST (14-36) U/L ALT (4-34) U/L Alkaline Phosphatase (38-126) U/L Total Protein (6.3-8.2) g/dL Albumin (3.5-5.0) g/dL Coronavirus (PCR) (Not Detectd) 06/07/20 06/07/20 06/08/20 Range/Units 17:53 23:52 04:01 WBC (3.8-10.6) k/uL RBC (3.80-5.40) m/uL Hct (34.0-46.0) % RDW (11.5-15.5) % Plt Count (150-450) k/uL Lymphocytes # (Manual) (1.0-4.8) k/uL Metamyelocytes # (Man) (0) k/uL APTT 20.1 L (22.0-30.0) sec D-Dimer 1.05 H (<0.60) mg/L FEU ABG pH (7.35-7.45) ABG pCO2 (35-45) mmHg ABG pO2 (83-108) mmHg ABG HCO3 (21-25) mmol/L ABG Total CO2 (19-24) mmol/L ABG O2 Saturation (94-97) % Sodium (137-145) mmol/L BUN (7-17) mg/dL Creatinine (0.52-1.04) mg/dL Glucose (74-99) mg/dL POC Glucose (mg/dL) 233 H (75-99) mg/dL Calcium (8.4-10.2) mg/dL Total Bilirubin (0.2-1.3) mg/dL AST (14-36) U/L ALT (4-34) U/L Alkaline Phosphatase (38-126) U/L Total Protein (6.3-8.2) g/dL Albumin (3.5-5.0) g/dL Coronavirus (PCR) Detected A (Not Detectd) 06/08/20 06/08/20 06/08/20 Range/Units 04:01 04:01 05:45 WBC 3.0 L (3.8-10.6) k/uL RBC 3.65 L (3.80-5.40) m/uL Hct 33.0 L (34.0-46.0) % RDW 19.3 H (11.5-15.5) % Plt Count 46 L (150-450) k/uL Lymphocytes # (Manual) 0.09 L (1.0-4.8) k/uL Metamyelocytes # (Man) 0.03 H (0) k/uL APTT (22.0-30.0) sec D-Dimer (<0.60) mg/L FEU ABG pH 7.33 L (7.35-7.45) ABG pCO2 47 H (35-45) mmHg ABG pO2 65 L (83-108) mmHg ABG HCO3 (21-25) mmol/L ABG Total CO2 26 H (19-24) mmol/L ABG O2 Saturation 92.5 L (94-97) % Sodium 132 L (137-145) mmol/L BUN 31 H (7-17) mg/dL Creatinine 0.42 L (0.52-1.04) mg/dL Glucose 251 H (74-99) mg/dL POC Glucose (mg/dL) (75-99) mg/dL Calcium 8.3 L (8.4-10.2) mg/dL Total Bilirubin 1.4 H (0.2-1.3) mg/dL AST 126 H (14-36) U/L ALT 400 H (4-34) U/L Alkaline Phosphatase 338 H (38-126) U/L Total Protein 4.6 L (6.3-8.2) g/dL Albumin 2.3 L (3.5-5.0) g/dL Coronavirus (PCR) (Not Detectd) 06/08/20 Range/Units 06:04 WBC (3.8-10.6) k/uL RBC (3.80-5.40) m/uL Hct (34.0-46.0) % RDW (11.5-15.5) % Plt Count (150-450) k/uL Lymphocytes # (Manual) (1.0-4.8) k/uL Metamyelocytes # (Man) (0) k/uL APTT (22.0-30.0) sec D-Dimer (<0.60) mg/L FEU ABG pH (7.35-7.45) ABG pCO2 (35-45) mmHg ABG pO2 (83-108) mmHg ABG HCO3 (21-25) mmol/L ABG Total CO2 (19-24) mmol/L ABG O2 Saturation (94-97) % Sodium (137-145) mmol/L BUN (7-17) mg/dL Creatinine (0.52-1.04) mg/dL Glucose (74-99) mg/dL POC Glucose (mg/dL) 278 H (75-99) mg/dL Calcium (8.4-10.2) mg/dL Total Bilirubin (0.2-1.3) mg/dL AST (14-36) U/L ALT (4-34) U/L Alkaline Phosphatase (38-126) U/L Total Protein (6.3-8.2) g/dL Albumin (3.5-5.0) g/dL Coronavirus (PCR) (Not Detectd) Assessment and Plan Plan: Assessment: #1. Acute hypoxic respiratory failure related to COVID-19 pneumonia, status post Remdesivir, convalescent plasma, and patient received Tocilizumab for progressive hypoxia and dyspnea. Required prolonged BiPAP support, intubated and placed on mechanical ventilator on 06/04/2020 On 06/07/2020 patient trached, PEG tube is planned for Wednesday due to previous history of gastric bypass surgery, and PEG tube placement could not be done at the bedside #2. Neutropenia, low platelet count, possibility of sepsis was considered and patient was placed on Zosyn, blood cultures and procalcitonin remain negative #3. Increased d-dimer and inflammatory markers related to acute COVID-19 pneumonia #4. Hyponatremia, multifactorial possibly related to hyperglycemia, SIADH, hypothyroidism and poor oral intake and hypoalbuminemia. Improving on today's labs #5. Diabetes mellitus type 2 #6. Obesity with a BMI of 46.5 kg/m #7. Hypertension #8. Hyperlipidemia #9. Hypothyroidism Plan: Continue with same vent settings Overnight patient's condition has declined, patient is hypothermic, Today's labs have been reviewed, Levythyroxine dose adjusted, cortisol level was noted, patient continues on Solu-Medrol Patient's is also hospitalized here with COVID-19 for over 30 days, and were told that he had made himself a DO NOT RESUSCITATE this morning and wants to proceed with comfort care on himself and his at this time We'll change her CODE STATUS to DO NOT RESUSCITATE Continue supportive treatment only until the family comes in and when they're ready we'll proceed with extubation and initiation of comfort care protocol I performed a history & physical examination of the patient and discussed their management with my nurse practitioner, Chela Lopez. I reviewed the nurse practitioner's note and agree with the documented findings and plan of care. Lung sounds are positive for diminished breath sounds with bilateral crackles The findings and the impression was discussed with the patient. I attest to the documentation by the nurse practitioner. Time with Patient: Greater than 30
[2020-06-08 11:41] LABS: Glucose,Whole Blood 274 mg/dL (75-99)
[2020-06-08 16:13] VITALS: TEMP 95.1
[2020-06-08] MEDS ORDERED: LORazepam 2 MG/ML INJ IV PRN (16:38)
--- NOTE | 2020-06-08 16:46 | P.PN ---
Subjective Progress Note Date: 06/08/20 CHIEF COMPLAINT: COVID pneumonia HISTORY OF PRESENT ILLNESS: The patient is a 59 year old female with Covid pneumonia status post trach. The patient remains in the ICU ventilated and sedated. Family looking into withdrawal of care. Patient has history of pneumothorax with chest tube. She has become more hypothermic. REVIEW OF ORGAN SYSTEMS: On mechanical ventilation. Otherwise unable to answer with vent. Patient has history PHYSICAL EXAM: VITALS: Reviewed CONSTITUTIONAL: Well developed and in no acute distress. EYES: Conjuctivae without sclera icterus. HEAD, EARS, NOSE, THROAT: Head is atraumatic, normocephalic. RESPIRATORY: Non-labored respirations and equal bilateral excursions. No gross wheezes. Mechanical ventilation CARDIOVASCULAR: Palpable 2+ radial pulses. ABDOMEN: No peritonitis. NEUROLOGIC: No focal or lateralizing signs PSYCH: Sedated CLINCAL LABS: Reviewed. WBC low with leukopenia ASSESSMENT: 1. COVID pneumonia 2. Status post trach 3. Leukopenia 4. Pneumothorax 5. Hypothermia PLAN: 1. Patient has grim prognosis with hospice being reviewed. Objective - Vital Signs Vital signs: Vital Signs Temp 95.1 F L 06/08/20 16:00 Pulse 64 06/08/20 16:00 Resp 32 H 06/08/20 16:00 BP 105/53 06/08/20 05:30 Pulse Ox 86 L 06/08/20 16:00 Intake & Output 06/07/20 06/08/20 06/08/20 18:59 06:59 18:59 Intake Total 2722.304 3512.247 2883.658 Output Total 618 355 460 Balance 2104.304 3157.247 2423.658 Weight 147.4 kg 152 kg Intake: IV 1500 1500 1050 Sodium Chloride 0.9% 1, 1500 1500 1050 000 ml @ 25 mls/hr IV . Q24H [facility] Rx#:[id number] Intake, IV Titration 305.824 5835.247 1518.658 Amount Cisatracurium 200 mg In 289.379 818.057 322.489 Sodium Chloride 0.9% 180 ml @ 2 MCG/KG/MIN 17.688 mls/hr IV .[id number] [facility] Rx #:[id number] Norepinephrine 8 mg In 114.782 69.479 645.494 Sodium Chloride 0.9% 250 ml @ 0.05 MCG/KG/MIN 12. 819 mls/hr IV .Q20H8M [facility] Rx#:[id number] fentaNYL (PF). 1,000 mcg 68.143 104.06 109.467 In Sodium Chloride 0.9% 80 ml @ Per Protocol IV . Q0M [facility] Rx#:[id number] propofoL 1,000 mg In 400.000 590.651 441.208 Empty Bag 1 bag @ Titrate IV .Q0M [facility] Rx#: [id number] Tube Feeding 200 325 225 Other 150 105 90 Output: Urine 615 355 460 Estimated Blood Loss 3 Other: Voiding Method Indwelling Catheter Indwelling Catheter Indwelling Catheter ABP, PAP, CO, CI - Last Documented Arterial Blood Pressure 109/56 - Labs CBC & Chem 7: 06/08/20 04:01 06/08/20 04:01 Labs: Abnormal Lab Results - Last 24 Hours (Table) 06/07/20 06/07/20 06/07/20 Range/Units 17:43 17:53 23:52 WBC (3.8-10.6) k/uL RBC (3.80-5.40) m/uL Hct (34.0-46.0) % RDW (11.5-15.5) % Plt Count (150-450) k/uL Lymphocytes # (Manual) (1.0-4.8) k/uL Metamyelocytes # (Man) (0) k/uL APTT (22.0-30.0) sec D-Dimer (<0.60) mg/L FEU ABG pH (7.35-7.45) ABG pCO2 (35-45) mmHg ABG pO2 (83-108) mmHg ABG Total CO2 (19-24) mmol/L ABG O2 Saturation (94-97) % Sodium (137-145) mmol/L BUN (7-17) mg/dL Creatinine (0.52-1.04) mg/dL Glucose (74-99) mg/dL POC Glucose (mg/dL) 233 H 233 H (75-99) mg/dL Calcium (8.4-10.2) mg/dL Total Bilirubin (0.2-1.3) mg/dL AST (14-36) U/L ALT (4-34) U/L Alkaline Phosphatase (38-126) U/L Total Protein (6.3-8.2) g/dL Albumin (3.5-5.0) g/dL Urine Protein (Negative) Ur Leukocyte Esterase (Negative) Urine RBC (0-5) /hpf Urine WBC (0-5) /hpf Urine Mucus (None) /hpf Urine Yeast (Budding) (None) /hpf Coronavirus (PCR) Detected A (Not Detectd) 06/08/20 06/08/20 06/08/20 Range/Units 04:01 04:01 04:01 WBC 3.0 L (3.8-10.6) k/uL RBC 3.65 L (3.80-5.40) m/uL Hct 33.0 L (34.0-46.0) % RDW 19.3 H (11.5-15.5) % Plt Count 46 L (150-450) k/uL Lymphocytes # (Manual) 0.09 L (1.0-4.8) k/uL Metamyelocytes # (Man) 0.03 H (0) k/uL APTT 20.1 L (22.0-30.0) sec D-Dimer 1.05 H (<0.60) mg/L FEU ABG pH (7.35-7.45) ABG pCO2 (35-45) mmHg ABG pO2 (83-108) mmHg ABG Total CO2 (19-24) mmol/L ABG O2 Saturation (94-97) % Sodium 132 L (137-145) mmol/L BUN 31 H (7-17) mg/dL Creatinine 0.42 L (0.52-1.04) mg/dL Glucose 251 H (74-99) mg/dL POC Glucose (mg/dL) (75-99) mg/dL Calcium 8.3 L (8.4-10.2) mg/dL Total Bilirubin 1.4 H (0.2-1.3) mg/dL AST 126 H (14-36) U/L ALT 400 H (4-34) U/L Alkaline Phosphatase 338 H (38-126) U/L Total Protein 4.6 L (6.3-8.2) g/dL Albumin 2.3 L (3.5-5.0) g/dL Urine Protein (Negative) Ur Leukocyte Esterase (Negative) Urine RBC (0-5) /hpf Urine WBC (0-5) /hpf Urine Mucus (None) /hpf Urine Yeast (Budding) (None) /hpf Coronavirus (PCR) (Not Detectd) 06/08/20 06/08/20 06/08/20 Range/Units 05:45 06:04 09:45 WBC (3.8-10.6) k/uL RBC (3.80-5.40) m/uL Hct (34.0-46.0) % RDW (11.5-15.5) % Plt Count (150-450) k/uL Lymphocytes # (Manual) (1.0-4.8) k/uL Metamyelocytes # (Man) (0) k/uL APTT (22.0-30.0) sec D-Dimer (<0.60) mg/L FEU ABG pH 7.33 L (7.35-7.45) ABG pCO2 47 H (35-45) mmHg ABG pO2 65 L (83-108) mmHg ABG Total CO2 26 H (19-24) mmol/L ABG O2 Saturation 92.5 L (94-97) % Sodium (137-145) mmol/L BUN (7-17) mg/dL Creatinine (0.52-1.04) mg/dL Glucose (74-99) mg/dL POC Glucose (mg/dL) 278 H (75-99) mg/dL Calcium (8.4-10.2) mg/dL Total Bilirubin (0.2-1.3) mg/dL AST (14-36) U/L ALT (4-34) U/L Alkaline Phosphatase (38-126) U/L Total Protein (6.3-8.2) g/dL Albumin (3.5-5.0) g/dL Urine Protein 1+ H (Negative) Ur Leukocyte Esterase Trace H (Negative) Urine RBC 43 H (0-5) /hpf Urine WBC 10 H (0-5) /hpf Urine Mucus Rare H (None) /hpf Urine Yeast (Budding) Moderate H (None) /hpf Coronavirus (PCR) (Not Detectd) 06/08/20 Range/Units 11:39 WBC (3.8-10.6) k/uL RBC (3.80-5.40) m/uL Hct (34.0-46.0) % RDW (11.5-15.5) % Plt Count (150-450) k/uL Lymphocytes # (Manual) (1.0-4.8) k/uL Metamyelocytes # (Man) (0) k/uL APTT (22.0-30.0) sec D-Dimer (<0.60) mg/L FEU ABG pH (7.35-7.45) ABG pCO2 (35-45) mmHg ABG pO2 (83-108) mmHg ABG Total CO2 (19-24) mmol/L ABG O2 Saturation (94-97) % Sodium (137-145) mmol/L BUN (7-17) mg/dL Creatinine (0.52-1.04) mg/dL Glucose (74-99) mg/dL POC Glucose (mg/dL) 274 H (75-99) mg/dL Calcium (8.4-10.2) mg/dL Total Bilirubin (0.2-1.3) mg/dL AST (14-36) U/L ALT (4-34) U/L Alkaline Phosphatase (38-126) U/L Total Protein (6.3-8.2) g/dL Albumin (3.5-5.0) g/dL Urine Protein (Negative) Ur Leukocyte Esterase (Negative) Urine RBC (0-5) /hpf Urine WBC (0-5) /hpf Urine Mucus (None) /hpf Urine Yeast (Budding) (None) /hpf Coronavirus (PCR) (Not Detectd)
[2020-06-08 17:27] VITALS: PULSE 67; RESP 27
--- NOTE | 2020-06-09 00:29 | P.DS ---
Providers Date of admission: 05/04/20 13:19 Attending physician: Gilmar Aviles MD Consults: 05/04/20 13:19 Consult Physician Routine Consulting Provider: Jaany Diaz Consult Reason/Comments: covid Do you want consulting provider notified?: Yes Consult Physician Routine Consulting Provider: Aminah Claudio Consult Reason/Comments: covid Do you want consulting provider notified?: Yes 05/21/20 10:56 Consult Physician Routine Consulting Provider: Tanner Arreaga Consult Reason/Comments: thrombocytopenia Do you want consulting provider notified?: Yes 05/24/20 07:03 Consult Physician Routine Consulting Provider: Desiree Montanez Consult Reason/Comments: hypertension Do you want consulting provider notified?: Yes, Notify in am 05/31/20 14:40 Consult Physician Routine Consulting Provider: Jacqueline Khan Consult Reason/Comments: Hyponatremia Do you want consulting provider notified?: Yes 06/05/20 09:00 Consult Physician Routine Consulting Provider: Juan M Christy Consult Reason/Comments: trach and peg, COVID Do you want consulting provider notified?: Yes Primary care physician: Tiffanie Llamas Assessment: Diagnoses: Acute bilateral covid pneumonia Acute hypoxic respiratory failure, requiring intubation and mechanical ventilation on 06/06.Patient is going for tracheotomy and PEG tomorrow Increased inflammatory markers biytopenia, with low WBC and platelets count, could be related to Covid infection. WBC improved now and now only thrombocytopenia Type 2 diabetes mellitus Hypertension Hyperlipidemia Hyperthyroidism Current History of GI bleed Morbid obesity with BMI of 47 Hospital course: This is a pleasant 59 years old female with past medical history of hypertension, hyperlipidemia, hyperthyroidism, type 2 diabetes mellitus, GERD, GI bleed. Presents with respiratory symptoms secondary to acute Covid pulmonary infection on both sides with acute hypoxic respiratory failure needing BiPAP machine individually patient was intubated on 06/04. Patient remained in the ICU and she was treated with Solu-Medrol 60 mg, vitamin C, D and zinc. Protonix oral 40 twice a day and Levemir insulin 35 units twice a day with pulmonary/critical care team following her closely. Eventually the family decided to make the patient comfort care. Patient shortly thereafter. Please refer to nurses notes for more details Patient Condition at Discharge: Poor Plan - Discharge Summary New Discharge Prescriptions: No Action Omeprazole [PriLOSEC] 20 mg PO [id number]-[id number] Levothyroxine Sodium [Synthroid] 75 mcg PO DAILY metFORMIN HCL [Glucophage] 500 mg PO TID Gabapentin [Neurontin] 600 mg PO QID Ferrous Sulfate [Feosol] 325 mg PO DAILY Ergocalciferol [Vitamin D2 (1250 Mcg = 94620 Iu)] 1,250 mcg PO DELACRUZ Baclofen [Lioresal] 20 mg PO HS Pioglitazone [Actos] 30 mg PO DAILY Lisinopril [Prinivil] 10 mg PO DAILY Glimepiride [Amaryl] 4 mg PO -[email or web address]T Escitalopram [Lexapro] 20 mg PO DAILY Atorvastatin [Lipitor] 40 mg PO DAILY Allopurinol [Zyloprim] 100 mg PO DAILY Melatonin 3 mg PO HS Ibuprofen [Motrin] 800 mg PO Q8H PRN PRN Reason: Pain Discharge Medication List Levothyroxine Sodium [Synthroid] 75 mcg PO DAILY 10/17/15 [History] Omeprazole [PriLOSEC] 20 mg PO -KFST 10/17/15 [History] Allopurinol [Zyloprim] 100 mg PO DAILY 03/05/20 [History] Atorvastatin [Lipitor] 40 mg PO DAILY 03/05/20 [History] Baclofen [Lioresal] 20 mg PO HS 03/05/20 [History] Ergocalciferol [Vitamin D2 (1250 Mcg = 42611 Iu)] 1,250 mcg PO DELACRUZ 03/05/20 [History] Escitalopram [Lexapro] 20 mg PO DAILY 03/05/20 [History] Ferrous Sulfate [Feosol] 325 mg PO DAILY 03/05/20 [History] Gabapentin [Neurontin] 600 mg PO QID 03/05/20 [History] Glimepiride [Amaryl] 4 mg PO -KT 03/05/20 [History] Lisinopril [Prinivil] 10 mg PO DAILY 03/05/20 [History] Melatonin 3 mg PO HS 03/05/20 [History] Pioglitazone [Actos] 30 mg PO DAILY 03/05/20 [History] metFORMIN HCL [Glucophage] 500 mg PO TID 03/05/20 [History] Ibuprofen [Motrin] 800 mg PO Q8H PRN 05/04/20 [History] Follow up Appointment(s)/Referral(s): Tiffanie Llamas DO [Primary Care Provider] - 1-2 days Discharge Disposition: - Preliminary Cause of Preliminary Cause of : covid pna
[2020-06-09] MEDS ORDERED: LEVOTHYROXINE 100 MCG TAB PO SCH (06:30)
[2020-06-09] MEDS ORDERED: LIDOCAINE 1% (10MG/ML) FOR IV START INTRADERMA PRN (18:28)
[2020-06-09] MEDS ORDERED: LACTATED RINGERS 1,000 ML IV SCH (18:30)
== END 2020-06-08 19:25 | disposition expired | DRG 4 ==
LOC: EC 12:16 → 4SSUR 13:19 → 3SCARD 05-06 18:03 → 2SICU 06-04 14:20
PROVIDERS: ADMIT Family Medicine; ATTEND Family Medicine
PROC: XW033E5 Introduction of Remdesivir Anti-infective into Peripheral Vein, Percutaneous Approach, New Technology Group 5 (ICD-10-PCS; 2020-05-04)
PROC: XW033H5 Introduction of Tocilizumab into Peripheral Vein, Percutaneous Approach, New Technology Group 5 (ICD-10-PCS; 2020-05-04)
PROC: 5A09557 Assistance with Respiratory Ventilation, Greater than 96 Consecutive Hours, Continuous Positive Airway Pressure (ICD-10-PCS; 2020-05-05)
PROC: 5A0935A Assistance with Respiratory Ventilation, Less than 24 Consecutive Hours, High Flow/Velocity Cannula (ICD-10-PCS; 2020-05-05)
PROC: XW13325 Transfusion of Convalescent Plasma (Nonautologous) into Peripheral Vein, Percutaneous Approach, New Technology Group 5 (ICD-10-PCS; 2020-05-05)
PROC: 02HV33Z Insertion of Infusion Device into Superior Vena Cava, Percutaneous Approach (ICD-10-PCS; 2020-05-29)
PROC: 0BH17EZ Insertion of Endotracheal Airway into Trachea, Via Natural or Artificial Opening (ICD-10-PCS; 2020-06-04)
PROC: 5A1955Z Respiratory Ventilation, Greater than 96 Consecutive Hours (ICD-10-PCS; 2020-06-04)
PROC: 3E0G76Z Introduction of Nutritional Substance into Upper GI, Via Natural or Artificial Opening (ICD-10-PCS; 2020-06-04)
PROC: 0D9670Z Drainage of Stomach with Drainage Device, Via Natural or Artificial Opening (ICD-10-PCS; 2020-06-04)
PROC: 3E033XZ Introduction of Vasopressor into Peripheral Vein, Percutaneous Approach (ICD-10-PCS; 2020-06-05)
PROC: 03HY32Z Insertion of Monitoring Device into Upper Artery, Percutaneous Approach (ICD-10-PCS; 2020-06-05)
PROC: 4A133J1 Monitoring of Arterial Pulse, Peripheral, Percutaneous Approach (ICD-10-PCS; 2020-06-05)
PROC: 4A133B1 Monitoring of Arterial Pressure, Peripheral, Percutaneous Approach (ICD-10-PCS; 2020-06-05)
PROC: 0DJ08ZZ Inspection of Upper Intestinal Tract, Via Natural or Artificial Opening Endoscopic (ICD-10-PCS; 2020-06-07)
PROC: 0B110F4 Bypass Trachea to Cutaneous with Tracheostomy Device, Open Approach (ICD-10-PCS; principal; 2020-06-07 08:25)
DX: A41.89 Other specified sepsis (principal); U07.1 COVID-19; D65 Disseminated intravascular coagulation [defibrination syndrome]; E43 Unspecified severe protein-calorie malnutrition; J12.82 Pneumonia due to coronavirus disease 2019; J96.01 Acute respiratory failure with hypoxia; R65.21 Severe sepsis with septic shock; J93.9 Pneumothorax, unspecified; B19.9 Unspecified viral hepatitis without hepatic coma; D61.818 Other pancytopenia; E22.2 Syndrome of inappropriate secretion of antidiuretic hormone; E87.3 Alkalosis; Z68.42 Body mass index [BMI] 45.0-49.9, adult; E87.2 Acidosis; E66.01 Morbid (severe) obesity due to excess calories; M10.9 Gout, unspecified; D50.9 Iron deficiency anemia, unspecified; I27.20 Pulmonary hypertension, unspecified; E03.9 Hypothyroidism, unspecified; Z66 Do not resuscitate; Z51.5 Encounter for palliative care; E05.90 Thyrotoxicosis, unspecified without thyrotoxic crisis or storm; E11.65 Type 2 diabetes mellitus with hyperglycemia; E78.00 Pure hypercholesterolemia, unspecified; E78.5 Hyperlipidemia, unspecified; E86.1 Hypovolemia; R16.1 Splenomegaly, not elsewhere classified; R79.1 Abnormal coagulation profile; K21.9 Gastro-esophageal reflux disease without esophagitis; F06.4 Anxiety disorder due to known physiological condition; F32.9 Major depressive disorder, single episode, unspecified; I08.3 Combined rheumatic disorders of mitral, aortic and tricuspid valves; F41.0 Panic disorder [episodic paroxysmal anxiety]; I10 Essential (primary) hypertension; Z79.890 Hormone replacement therapy; Z79.84 Long term (current) use of oral hypoglycemic drugs; Z79.899 Other long term (current) drug therapy; Z98.1 Arthrodesis status; Z98.84 Bariatric surgery status; Z80.9 Family history of malignant neoplasm, unspecified; Z87.19 Personal history of other diseases of the digestive system; Z90.49 Acquired absence of other specified parts of digestive tract; Z90.89 Acquired absence of other organs; Z88.5 Allergy status to narcotic agent; Z53.09 Procedure and treatment not carried out because of other contraindication
CPT/HCPCS: 36415; 36573; 43235; 71045; 71275; 76705; 80048; 80053; 81001; 82330; 82533; 82550; 82570; 82607; 82728; 82746; 82784; 82805; 83010; 83036; 83605; 83615; 83735; 83880; 83935; 84100; 84132; 84145; 84300; 84439; 84443; 84478; 85025; 85379; 85384; 85610; 85730; 86022; 86140; 86850; 86900; 86901; 87040; 87635; 93005; 93970; 94002; 94003; 94640; 94660; 94760; 96374; 99291